=== PATIENT | female | born 1990 | race Caucasian/White ===

== ENCOUNTER 2016-03-15 17:35 | Emergency (ER) | payer MEDICARE, MEDICAID ==
[~2016-03-15] VITALS: Ht 160 cm; Wt 59.0 kg
[~2016-03-15 17:35] MED LIST: ACID REFLUX MED; AGM875T PO; ALBU8.5H2 IH; ALLERGY SHOTS; ALLERGY SHOTS IM; ALPR0.2550 PO; ALPR1TAB2 PO; ALPR1TAB7; ANTI14DR4 OT; ARIP2TAB3 PO; AZIT-21 PO; BCP; BENZ100C18 PO; BUTA1TAB55 PO; CEFD300C3 PO; CEPH500C PO; CETI1TAB2 PO; CIPR-225 PO; CIPR500T78 PO; CYAN50TA SL; CYCL10TA9 PO; DOCU100C37 PO; DOXY1TAB3 PO; DULO30CA PO; DULO60CA6 PO; ESCI10TA55; ESCT10T PO; FERR-74 PO; FLUO20CA25 PO; HYDR-3812 PO; HYDR118S10 PO; HYDR1TAB PO; HYDR1TAB71 PO; HYDR25CA5 PO; IBP600T1 PO; IBUP-1773 PO; IBUP800T26 PO; INDO25CA PO; KETO-22 PO; KETO1SPR NS; MAGN200T3 PO; MELA1TAB10 PO; METO10TA3; METR500T21 PO; NITR-65 PO; NITR100C PO; NORTEL; NORTEL PO; NYST15CR3 TOP; OMEP20CA12; OMEP20CA12 PO; OMEP20TA2 PO; ONAB200V IJ; ONDA-42 PO; ONDA8TAB13 PO; ONDAN4ODT PO; PARO40TA47; PHEN200T27 PO; PRD20T PO; PREN1TAB86 PO; PROP10TA8 PO; RT-ALBUINH IH; SULF-222 PO; SUMA1TAB PO; TIZA4TAB55 PO; TOPI50TA13; TOPI50TA37 PO; TPR100T PO; TPR25T PO; TRAM50TA2 PO; TRAZ150T42 PO; TRZ100T PO; VERA40TA2 PO; bcp
--- OUTSIDE RECORDS SUMMARY | 2016-03-15 17:40 | XMS REPORT | Continuity of Care Document ---
Author Author [facility] Organization [facility] Address Unknown Phone Unavailable Care Team Providers Care Oak Tanner Name Role Phone PCP Unavailable Source Comments Some departments are not documenting in the electronic medical record. If you do not see the information that you expected, contact Release of Information in the Health Information Management department at [phone] for further assistance in locating additional records.[facility] Active Allergies and Adverse Reactions Allergen Noted Date Severity Reactions Comments Pcn 12/30/2012 HIVES Treximet 12/30/2012 SWOLLEN TONGUE Swollen throat Current Medications Prescription Sig. Disp. Refills Start End Date Status Date DULoxetine DR (CYMBALTA) Take 60 mg by mouth Active 60 mg capsule daily. nortriptyline (PAMELOR) Take 50 mg by mouth at Active 10 mg capsule bedtime daily. Take three caps at bed time other medication 0.5 Each. 0.5 mg Estrace Active one a day /estradiol/ traZODone (DESYREL) 150 Take 150 mg by mouth at Active mg tablet bedtime daily. ondansetron (ZOFRAN) 4 mg Take 4 mg by mouth daily Active tablet as needed. Sublingual daily HYDROCODONE Take 7.5-50 mg by mouth Active BIT/ACETAMINOPHEN every 12 hours as needed. (HYDROCODONE-ACETAMINOPHE Two tabs per day, no more N PO) than 6 tabs per week ketorolac (SPRIX) 15.75 Apply to each nostril as Active mg/spray spry directed daily as needed. One spray each nostrils every 8 hrs prn ALPRAZolam (XANAX) 0.25 Take 1 mg by mouth every Active mg tablet 8 hours as needed. One-two tabs every 8 hrs if needed ONABOTULINUMTOXINA (BOTOX Inject to area(s) as Active IJ) directed. Every three months other medication 1 Dose. Allergy inj every Active week medroxyPROGESTERone Inject 150 mg to area(s) Active (DEPO-PROVERA) 150 mg/mL as directed every 90 injection days. nortriptyline (PAMELOR) Take 50 mg by mouth at Active 50 mg capsule bedtime daily. Cyanocobalamin (VITAMIN Place under tongue Active B-12) 2,500 mcg subl daily. 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 Respiratory Rate 18 03/25/2013 9:18 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 Height 1.6 m (5' 3") 03/25/2013 9:18 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 Weight 77.111 kg (170 lb) 03/25/2013 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
[2016-03-15] MEDS ORDERED: KETOROLAC 60 MG/2 ML VIAL IM ONE (17:45)
[2016-03-15] MEDS ORDERED: diphenhydrAMINE 50 MG/ML INJ (BENADRYL) IM ONE (17:45)
[2016-03-15] MEDS ORDERED: PROCHLORPERAZINE 10 MG/2ML INJ (COMPAZINE) IM ONE (17:45)
[2016-03-15] MEDS ORDERED: SULF-222 (17:53)
[2016-03-15] MEDS ORDERED: OSLT75C (17:53)
--- NOTE | 2016-03-15 17:53 | ED Headache ---
General Chief Complaint: Head/Cervical Problems Stated Complaint: MIGRAINE Nursing Triage Note: COMPLAINS OF MIGRAINE STARTING AT 0500. HAS TAKEN IBUPROFEN AND EXCEDREN WITH NO RELIEF. RECENTLY DX WITH THE FLU. Nursing Sepsis Screen: No Definite Risk Source: patient Exam Limitations: no limitations History of Present Illness Time seen by provider: 17:52 Initial Comments To ER with reports of a migraine. This is a left frontal/retro-orbital headache worsened by light. She does have associated nausea. This is characteristic of her frequent migraines. This started this morning when she awakened. She took some ibuprofen this morning without significant relief. She then tried Excedrin Migraine this afternoon around 2 p.m., again without significant relief. She does see an anesthesiologist in [place] for cervical injections. She was formerly on Topamax which she does feel helped quite a bit with her migraine frequency and intensity but ran out of this medication when her neurologist in [place] left. Timing/Duration: constant, increasing, other Location: frontal Prior Headaches/Recent Trauma: frequent headaches Modifying Factors: worse with exposure to light Associated Symptoms: No confusion, No fatigue, No facial pain, No fever/chills , No flushing, No loss of consciousness, nausea/vomitingNo nasal congestion, No nasal drainage, No numbness in legs/feet, No rash, No seizures, No sinus infection, No stiff neck, No vision changes Allergies and Home Medications Allergies Coded Allergies: sumatriptan (Unverified Allergy, Severe, ANAPHYLAXIS, 09/20/13) Penicillins (Unverified Allergy, Unknown, 09/20/13) sumatriptan succinate (Verified Adverse Reaction, Mild, 04/01/11) Home Medications Alprazolam 1 Mg Tablet #90 (Reported) Duloxetine HCl 60 Mg Capsule.dr 60 MG PO (Reported) Ibuprofen 600 Mg Tablet 600 MG PO Q6H PRN PRN PAIN (Reported) Omeprazole 20 Mg Capsule.dr #30 (Reported) Oseltamivir Phosphate 75 Mg Cap #10 (Reported) Sulfamethoxazole/Trimethoprim 1 Each Tablet #20 (Reported) Constitutional: see HPI Eyes: No Symptoms Reported Ears, Nose, Mouth, Throat: no symptoms reported Respiratory: no symptoms reported Cardiovascular: no symptoms reported Genitourinary: no symptoms reported Musculoskeletal: no symptoms reported Skin: no symptoms reported Psychiatric/Neurological: See HPI Headache Past Etyashz-Pjoaom-Mfiftx Hx Patient Social History Type Used: Cigarettes Recent Foreign Travel: No Contact w/Someone Who Travel: No Recent Infectious Disease Expo: No Recent Hopitalizations: No Immunizations Up To Date Tetanus Booster (TDap): Unknown PED Vaccines UTD: Yes Date of Influenza Vaccine: Jan 08, 2013 Seasonal Allergies Seasonal Allergies: No Surgeries HX Surgeries: Yes (SINUS, EXPL LAP, EAR TUBES, perineal tear repair) Surgeries: Abdominal, Appendectomy, Ear Surgery, Eye Surgery Respiratory Hx Respiratory Disorders: No Cardiovascular Hx Cardiac Disorders: No Neurological Hx Neurological Disorders: Yes Neurological Disorders: Headaches /Migraines 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 System : No (ON DEPO) Hx 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 Disorders: No Genitourinary Hx Genitourinary Disorders: No Gastrointestinal Hx Gastrointestinal Disorders: Yes Gastrointestinal Disorders: Gastroesophageal Reflux Musculoskeletal Hx Musculoskeletal Disorders: No Endocrine Hx Endocrine Disorders: No HEENT HX ENT Disorders: No Cancer Hx Cancer: No Psychosocial Hx Psychiatric Problems: Yes Behavioral Health Disorders: Sleep Difficulties, Anxiety, PTSD, Depression Integumentary HX Skin/Integumentary Disorder: No Blood Transfusions Hx Blood Disorders: No Adverse Reaction to a Blood Tr: No Family Medical History Significant Family History: No Pertinent Family Hx Family Medial History: FH: bipolar disorder 19 FATHER 19 MOTHER Physical Exam Vital Signs Vital Sign - Last 12Hours 03/15/16 17:49 Temp 97.8 Pulse 102 Resp 18 B/P 137/101 Pulse Ox 98 Capillary Refill : Less Than 3 Seconds General Appearance: WD/WN no apparent distress HEENT: PERRL/EOMI normal ENT inspection TMs normal Neck: non-tender full range of motion Cardiovascular: no murmur tachycardia (102) Respiratory: lungs clear normal breath sounds no accessory muscle use Extremities: normal range of motion non-tender Psychiatric: alert oriented x 3 Crainal Nerves: normal hearing normal speech PERRL Coordination/Gait: normal gait Skin: normal color warm/dry Progress/Results/Core Measures Results/Orders My Orders Orders-JUAN MIGUEL JIMENEZ APRN Diphenhydramine Injection (Benadryl Inje (03/15/16 17:45) Prochlorperazine Injection (Compazine In (03/15/16 17:45) Ketorolac Injection (Toradol Injection) (03/15/16 17:45) Medications Given in ED Current Medications Medications Dose Ordered Sig/Janine Route Start Time Stop Time Status Last Admin Dose Admin Diphenhydramine HCl 25 mg ONCE ONCE IM 03/15/16 17:45 03/15/16 17:46 DC 03/15/16 17:56 25 MG Ketorolac Tromethamine 60 mg ONCE ONCE IM 03/15/16 17:45 03/15/16 17:46 DC 03/15/16 17:56 60 MG Prochlorperazine Edisylate 10 mg ONCE ONCE IM 03/15/16 17:45 03/15/16 17:46 DC 03/15/16 17:56 10 MG Vital Signs/I&O Vital Sign - Last 12Hours 03/15/16 17:49 Temp 97.8 Pulse 102 Resp 18 B/P 137/101 Pulse Ox 98 Blood Pressure Mean: 113 Departure Impression Impression: Primary Impression: Headache Qualified Code: R51 - Headache Disposition: 01 HOME, SELF-CARE Condition: Improved Departure-Patient Inst. Decision time for Depature: 18:01 Referrals: NO,LOCAL PHYSICIAN (PCP/Family) Primary Care Physician Patient Instructions: Headache, Adult (DC) Add. Discharge Instructions: All discharge instructions reviewed with patient and/or family. Voiced understanding. JUAN MIGUEL JIMENEZ APRN Mar 15, 2016 17:53
[2016-03-15 18:31] VITALS: BP 116/88
== END 2016-03-15 18:31 | disposition home or self-care (01) ==
LOC: EDUNIT# 17:35 → ER 17:36
DX: R51 Headache (principal)
CPT/HCPCS: 96372; 99282

== ENCOUNTER 2016-03-17 11:24 | Emergency (ER) | payer MEDICARE, MEDICAID ==
[~2016-03-17] VITALS: Ht 160 cm; Wt 59.0 kg
[~2016-03-17 11:24] MED LIST changes: +OSLT75C; +SULF-222
--- OUTSIDE RECORDS SUMMARY | 2016-03-17 11:29 | XMS REPORT | Continuity of Care Document ---
Author Author [facility] Organization [facility] Address Unknown Phone Unavailable Care Team Providers Care Communications Assistant Name Role Phone PCP Unavailable Source Comments Some departments are not documenting in the electronic medical record. If you do not see the information that you expected, contact Release of Information in the Health Information Management department at [phone] for further assistance in locating additional records.[facility] Active Allergies and Adverse Reactions [...] Taken Blood Pressure 130/86 03/25/2013 9:18 AM RESTROOMS OR LOUNGES MAID Pulse 106 03/25/2013 9:18 AM RESTR[employer]S [employer] Temperature 36.8 C (98.3 F) 03/25/2013 9:18 AM RESTR[employer]S [employer] MA[employer] Respiratory Rate 18 03/25/2013 9:18 AM RESTR[employer]S [employer] MA[employer] Height 1.6 m (5' 3") 03/25/2013 9:18 AM RESTR[employer]S [employer] MAID Weight 77.111 kg (170 lb) 03/25/2013 9:18 AM RESTR[employer]S [employer] Body Mass Index 30.12 03/25/2013 9:18 AM RESTROOMS [employer] Oxygen Saturation - - Plan of Care Date Type Specialty Providers Description 05/02/2016 Appointment Urology Guillermo Mae MD [address] [facility] [address] [place] [address] [phone] (Fax) Health Maintenance Due Date Last Done Comments Physical (Comprehensive) 06/19/1999 Exam Hpv Vaccines (#1) 06/19/2003 Pertussis Vaccine 06/19/2003 Tetanus Vaccine 2009 Cervical Cancer Screening 2013 Influenza Vaccine 11/09/2015 Results from Last 3 Months Not on file
[2016-03-17] MEDS ORDERED: diphenhydrAMINE 50 MG/ML INJ (BENADRYL) IVP ONE (12:00)
[2016-03-17] MEDS ORDERED: PROMETHAZINE INJ 25 MG/ML (PHENERGAN) AMP IVP ONE (12:00)
[2016-03-17] MEDS ORDERED: KETOROLAC 30 MG/ML VIAL IVP ONE (12:00)
--- NOTE | 2016-03-17 12:03 | ED Headache ---
General Chief Complaint: Head/Cervical Problems Stated Complaint: MIGRAINE Nursing Triage Note: Here for repeat migraine. Here 03/15/16 for new migraine. Pt's PCP referred to anesthesia for injections and rec'd one 03/05/16 and to return 03/19/16. Pt states will not be going to appt 03/19/16 as never improved. Nursing Sepsis Screen: No Definite Risk Source: patient, family Exam Limitations: no limitations History of Present Illness Time seen by provider: 12:01 Initial Comments 25-year-old white female presents with complaint of recurrent migraine headache. The patient was seen here 2 days ago and treated with ketorolac, diphenhydramine, and Phenergan with good relief of her headache. Patient denies associated fever or chill. She has had no lateralizing or localizing neurologic complaints. The patient is involved in follow-up for her headaches. Allergies and Home Medications Allergies Coded Allergies: sumatriptan (Unverified Allergy, Severe, ANAPHYLAXIS, 09/20/13) Penicillins (Unverified Allergy, Unknown, 09/20/13) sumatriptan succinate (Verified Adverse Reaction, Mild, 04/01/11) Home Medications Alprazolam 1 Mg Tablet #90 (Reported) Duloxetine HCl 60 Mg Capsule.dr 60 MG PO (Reported) Ibuprofen 600 Mg Tablet 600 MG PO Q6H PRN PRN PAIN (Reported) Omeprazole 20 Mg Capsule.dr #30 (Reported) Oseltamivir Phosphate 75 Mg Cap #10 (Reported) Sulfamethoxazole/Trimethoprim 1 Each Tablet #20 (Reported) Constitutional: No chills, No fever Eyes: Denies Blindness, Denies Blurred Vision, Photophobia Ears, Nose, Mouth, Throat: denies ear pain, denies ear discharge Respiratory: No cough Cardiovascular: No chest pain Gastrointestinal: No abdominal pain, No diarrhea, nausea Genitourinary: No dysuria, No frequency Musculoskeletal: No back pain Skin: No rash Psychiatric/Neurological: Headache Past Bpvhwnu-Yadnyv-Wvaufx Hx Patient Social History Alcohol Use: Denies Use Recreational Drug Use: No Smoking Status: Current Everyday Smoker Type Used: Cigarettes Recent Foreign Travel: No Contact w/Someone Who Travel: No Recent Infectious Disease Expo: No Recent Hopitalizations: No Physical Abuse Screen: No Sexual Abuse: No Immunizations Up To Date Tetanus Booster (TDap): Unknown PED Vaccines UTD: Yes Date of Influenza Vaccine: Jan 08, 2013 Seasonal Allergies Seasonal Allergies: No Surgeries HX Surgeries: Yes (SINUS, EXPL LAP, EAR TUBES, perineal tear repair) Surgeries: Abdominal, Appendectomy, Ear Surgery, Eye Surgery Respiratory Hx Respiratory Disorders: No Cardiovascular Hx Cardiac Disorders: No Neurological Hx Neurological Disorders: Yes Neurological Disorders: Headaches /Migraines 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 System Hx 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 Disorders: No Genitourinary Hx Genitourinary Disorders: No Gastrointestinal Hx Gastrointestinal Disorders: Yes Gastrointestinal Disorders: Gastroesophageal Reflux Musculoskeletal Hx Musculoskeletal Disorders: No Endocrine Hx Endocrine Disorders: No HEENT HX ENT Disorders: No Cancer Hx Cancer: No Psychosocial Hx Psychiatric Problems: Yes Behavioral Health Disorders: Sleep Difficulties, Anxiety, PTSD, Depression Integumentary HX Skin/Integumentary Disorder: No Blood Transfusions Hx Blood Disorders: No Adverse Reaction to a Blood Tr: No Reviewed Nursing Assessment Reviewed/Agree w Nursing PMH: Yes Family Medical History Significant Family History: No Pertinent Family Hx Family Medial History: FH: bipolar disorder 19 FATHER 19 MOTHER Physical Exam Vital Signs Vital Sign - Last 12Hours 03/17/16 11:33 Temp 96.2 Pulse 89 Resp 16 B/P 121/72 Pulse Ox 99 O2 Delivery Room Air Capillary Refill : Less Than 3 Seconds General Appearance: WD/WN mild distress HEENT: normal ENT inspection Neck: normal inspection Cardiovascular: normal peripheral pulses regular rate, rhythm Respiratory: chest non-tender lungs clear normal breath sounds Gastrointestinal: normal bowel sounds non tender soft Back: normal inspection Extremities: normal range of motion Psychiatric: alert oriented x 3 Crainal Nerves: normal hearing normal speech PERRL Motor/Sensory: no motor deficit no sensory deficit Reflexes: 3+ Knee (R), 3+ Knee (L) Skin: normal color warm/dry Progress/Results/Core Measures Results/Orders My Orders Orders-FADI DAVE MD Diphenhydramine Injection (Benadryl Inje (03/17/16 12:00) Ketorolac Injection (Toradol Injection) (03/17/16 12:00) Promethazine Injection (Phenergan Injec (03/17/16 12:00) Ns Iv 1000 Ml (Sodium Chloride 0.9%) (03/17/16 12:15) Medications Given in ED Current Medications Medications Dose Ordered Sig/Janine Route Start Time Stop Time Status Last Admin Dose Admin Diphenhydramine HCl 25 mg ONCE ONCE IVP 03/17/16 12:00 03/17/16 12:02 DC 03/17/16 12:35 25 MG Ketorolac Tromethamine 30 mg ONCE ONCE IVP 03/17/16 12:00 03/17/16 12:02 DC 03/17/16 12:35 30 MG Promethazine HCl 25 mg ONCE ONCE IVP 03/17/16 12:00 03/17/16 12:02 DC 03/17/16 12:35 25 MG Vital Signs/I&O Vital Sign - Last 12Hours 03/17/16 03/17/16 11:33 12:35 Temp 96.2 96.2 Pulse 89 Resp 16 B/P 121/72 Pulse Ox 99 O2 Delivery Room Air Blood Pressure Mean: 88 Progress Note : Time: 12:54 Progress Note After the patient received 25 mg of Benadryl, 25 mg Phenergan, and 30 mg Toradol IV her headache abated. 1255 p.m. At the time of discharge the patient was sleeping quietly in her bed without further headache. Departure Impression Impression: Primary Impression: Migraine Qualified Code: G43.909 - Migraine, unspecified, not intractable, without status migrainosus Disposition: 01 HOME, SELF-CARE Condition: Improved Departure-Patient Inst. Decision time for Depature: 12:56 Referrals: [facility],LOCAL PHYSICIAN (PCP) Primary Care Physician Patient Instructions: Migraine Headache (DC) Add. Discharge Instructions: Rest at home today. Follow up at [facility]. Return if any problems. All discharge instructions reviewed with patient and/or family. Voiced understanding. FADI DAVE MD Mar 17, 2016 12:03
[2016-03-17] MEDS ORDERED: NS IV 1000 ML 1,000 ML IV SCH (12:15)
[2016-03-17 13:12] VITALS: BP 118/70
== END 2016-03-17 13:12 | disposition home or self-care (01) ==
LOC: EDUNIT# 11:24 → ER 11:25
DX: G43.909 Migraine, unspecified, not intractable, without status migrainosus (principal); F17.210 Nicotine dependence, cigarettes, uncomplicated
CPT/HCPCS: 96374; 96375; 99282

== ENCOUNTER 2016-03-26 17:50 | Emergency (ER) | payer MEDICARE, MEDICAID ==
[~2016-03-26] VITALS: Ht 160 cm; Wt 59.0 kg
--- OUTSIDE RECORDS SUMMARY | 2016-03-26 17:55 | XMS REPORT | Continuity of Care Document ---
Author Author [facility] Organization [facility] Address Unknown Phone Unavailable Care Team Providers Care Pharmacy Sales Representative Name Role Phone PCP Unavailable Source Comments Some departments are not documenting in the electronic medical record. 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 Height 1.6 m (5' 3") 03/25/2013 9:18 AM WATER CONTROL STATION ENGINEER Weight 77.111 kg (170 lb) 03/25/2013 9:18 AM WATER 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
--- NOTE | 2016-03-26 19:44 | ED Headache ---
General Chief Complaint: Head/Cervical Problems Stated Complaint: MIGRAINE Nursing Triage Note: PT C/O MIGRAINE SINCE LAST NOC. SHE REPORTS SHE HAS BEEN ALTERNATING TYLENOL AND MOTRIN WITH NO RELIEF. Nursing Sepsis Screen: No Definite Risk Source: patient Exam Limitations: no limitations History of Present Illness Time seen by provider: 19:44 Initial Comments 25-year-old female patient presents to the emergency department with complaints of a migraine beginning last night. Patient has multiple visits to the emergency department for similar complaints. Reports feel similar to usual migraines. Positive photophobia, sound sensitivity, and nausea. She has been alternating Tylenol and Motrin without improvement in symptoms. Timing/Duration: 24 hours, waxing and waning Severity/Quality: throbbing Location: parietal Prior Headaches/Recent Trauma: frequent headaches Modifying Factors: worse with exposure to light, worse with other (exposure to sound) Allergies and Home Medications Allergies Coded Allergies: sumatriptan (Unverified Allergy, Severe, ANAPHYLAXIS, 09/20/13) Penicillins (Unverified Allergy, Unknown, 09/20/13) sumatriptan succinate (Verified Adverse Reaction, Mild, 04/01/11) Home Medications Alprazolam 1 Mg Tablet #90 (Reported) Duloxetine HCl 60 Mg Capsule.dr 60 MG PO (Reported) Ibuprofen 600 Mg Tablet 600 MG PO Q6H PRN PRN PAIN (Reported) Omeprazole 20 Mg Capsule.dr #30 (Reported) Prednisone 20 Mg Tab #4 20 MG PO DAILY Prescribed by: CHRISTOPHE LEAHY on 03/29/16 0129 Constitutional: No chills, No dizziness, No fever, No malaise Eyes: Denies Blurred Vision, Denies Inflammation, Denies Pain, PhotophobiaDenies Vision Changes Ears, Nose, Mouth, Throat: no symptoms reported Respiratory: no symptoms reported Cardiovascular: no symptoms reported Gastrointestinal: No abdominal pain, No constipation, No diarrhea, loss of appetite nauseaNo vomiting Genitourinary: no symptoms reported Musculoskeletal: no symptoms reported Skin: no symptoms reported Psychiatric/Neurological: HeadacheDenies Numbness, Denies Paresthesia, Denies Seizure, Denies Tingling, Denies Weakness All Other Systems Reviewed Negative Unless Noted: Yes (Negative excepted noted.) Past Qgjyztg-Gvwman-Bomxei Hx Patient Social History Alcohol Use: Denies Use Recreational Drug Use: No Smoking Status: Current Everyday Smoker Type Used: Cigarettes Recent Foreign Travel: No Contact w/Someone Who Travel: No Recent Infectious Disease Expo: No Recent Hopitalizations: No Physical Abuse Screen: No Sexual Abuse: No Immunizations Up To Date Tetanus Booster (TDap): Unknown PED Vaccines UTD: Yes Date of Influenza Vaccine: Jan 08, 2013 Seasonal Allergies Seasonal Allergies: No Surgeries HX Surgeries: Yes (SINUS, EXPL LAP, EAR TUBES, perineal tear repair) Surgeries: Abdominal, Appendectomy, Ear Surgery, Eye Surgery Respiratory Hx Respiratory Disorders: No Cardiovascular Hx Cardiac Disorders: No Neurological Hx Neurological Disorders: Yes Neurological Disorders: Headaches /Migraines 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 System Hx 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 Disorders: No Genitourinary Hx Genitourinary Disorders: No Gastrointestinal Hx Gastrointestinal Disorders: Yes Gastrointestinal Disorders: Gastroesophageal Reflux Musculoskeletal Hx Musculoskeletal Disorders: No Endocrine Hx Endocrine Disorders: No HEENT HX ENT Disorders: No Cancer Hx Cancer: No Psychosocial Hx Psychiatric Problems: Yes Behavioral Health Disorders: Sleep Difficulties, Anxiety, PTSD, Depression Integumentary HX Skin/Integumentary Disorder: No Blood Transfusions Hx Blood Disorders: No Adverse Reaction to a Blood Tr: No Reviewed Nursing Assessment Reviewed/Agree w Nursing PMH: Yes Family Medical History Significant Family History: No Pertinent Family Hx Family Medial History: FH: bipolar disorder 19 FATHER 19 MOTHER Physical Exam Vital Signs Capillary Refill : Less Than 3 Seconds General Appearance: WD/WN no apparent distress HEENT: PERRL/EOMI normal ENT inspection TMs normal pharynx normal photophobia Neck: non-tender full range of motion supple normal inspection Cardiovascular: regular rate, rhythm no murmur Respiratory: lungs clear normal breath sounds no respiratory distress Gastrointestinal: normal bowel sounds non tender softNo distended Back: normal inspection Extremities: normal inspection normal capillary refill Psychiatric: alert oriented x 3 Crainal Nerves: normal hearing normal speech PERRL Coordination/Gait: normal finger to nose normal gait negative Romberg's sign Motor/Sensory: no motor deficit no sensory deficit no pronator drift Skin: normal color warm/dry Progress/Results/Core Measures Results/Orders My Orders Orders-JENNIFER MOONEY Saline Lock/Iv-Start (03/26/16 20:00) Ondansetron Injection (Zofran Injectio (03/26/16 20:00) Ketorolac Injection (Toradol Injection) (03/26/16 20:00) Orphenadrine Injection (Norflex Injectio (03/26/16 20:00) Ns Iv 1000 Ml (Sodium Chloride 0.9%) (03/26/16 20:00) Diphenhydramine Injection (Benadryl Inje (03/26/16 20:00) Iv Push Bureau Director Ed (03/26/16 ) Medications Given in ED Vital Signs/I&O Blood Pressure Mean: 111 Departure Communication Progress Notes Patient reports improvement in migraine with medications given in the emergency department. Patient is alert and oriented 3, no acute distress. Proceed with discharge to home. Impression Impression: Primary Impression: Migraine Qualified Code: G43.909 - Migraine, unspecified, not intractable, without status migrainosus Disposition: HOME, SELF-CARE Condition: Improved Departure-Patient Inst. Decision time for Depature: 20:20 Referrals: NO,LOCAL PHYSICIAN (PCP/Family) Primary Care Physician Patient Instructions: Migraine Headache (DC) Add. Discharge Instructions: All discharge instructions reviewed with patient and/or family. Voiced understanding. Continue usual home medications. Drink plenty of fluids. Tylenol extra strength alcd-igl-[id number] as directed for pain or headache. Ibuprofen 800 mg by mouth every 8 hours as needed for pain or headache. Avoid bright lights and loud noises. Follow-up with your family practitioner and neurologist as previously scheduled. Return to the emergency department for worsened headache, dizziness, changes in vision, decreased urination, or any other concerns. JENNIFER MOONEY Mar 26, 2016 19:44 Departure-Patient Inst. Decision time for Depature: 20:20 Referrals: NO,LOCAL PHYSICIAN (PCP/Family) Primary Care Physician Patient Instructions: Migraine Headache (DC) Add. Discharge Instructions: All discharge instructions reviewed with patient and/or family. Voiced understanding. Continue usual home medications. Drink plenty of fluids. Tylenol extra strength jvsn-atn-qdnfacs as directed for pain or headache. Ibuprofen 800 mg by mouth every 8 hours as needed for pain or headache. Avoid bright lights and loud noises. Follow-up with your family practitioner and neurologist as previously scheduled. Return to the emergency department for worsened headache, dizziness, changes in vision, decreased urination, or any other concerns. JENNIFER MOONEY Mar 26, 2016 19:44
[2016-03-26] MEDS ORDERED: diphenhydrAMINE 50 MG/ML INJ (BENADRYL) IVP ONE (20:00)
[2016-03-26] MEDS ORDERED: NS IV 1000 ML 1,000 ML IV ONE (20:00)
[2016-03-26] MEDS ORDERED: KETOROLAC 30 MG/ML VIAL IVP STA (20:00)
[2016-03-26] MEDS ORDERED: ONDANSETRON 4 MG/2 ML (SDV) Z0FRAN IVP ONE (20:00)
[2016-03-26] MEDS ORDERED: ORPHENADRINE 60 MG/2 ML (NORFLEX) AMP IV STA (20:00)
[2016-03-26 21:11] VITALS: BP 137/98
== END 2016-03-26 21:11 | disposition home or self-care (01) ==
LOC: EDUNIT# 17:50 → ER 17:51
DX: G43.909 Migraine, unspecified, not intractable, without status migrainosus (principal); F17.210 Nicotine dependence, cigarettes, uncomplicated
CPT/HCPCS: 96361; 96374; 96375

== ENCOUNTER 2016-03-29 00:11 | Emergency (ER) | payer MEDICARE, MEDICAID ==
[~2016-03-29] VITALS: Ht 162.6 cm; Wt 63.5 kg
--- OUTSIDE RECORDS SUMMARY | 2016-03-29 00:18 | XMS REPORT | Continuity of Care Document ---
Author Author [facility] Organization [facility] Address Unknown Phone Unavailable Care Team Providers Care Roustabout Hand Name Role Phone PCP Unavailable Source Comments Some departments are not documenting in the electronic medical record. If you do not see the information that you expected, contact Release of Information in the Health Information Management department at [phone] for further assistance in locating additional records.[facility] Active Allergies and Adverse Reactions [...] Taken Blood Pressure 130/86 03/25/2013 9:18 AM HAND CELL TUBER Pulse 106 03/25/2013 9:18 AM HAND CELL TUBER Temperature 36.8 C (98.3 F) 03/25/2013 9:18 AM HAND CELL TUBER Respiratory Rate 18 03/25/2013 9:18 AM HAND CELL TUBER Height 1.6 m (5' 3") 03/25/2013 9:18 AM HAND CELL TUBER Weight 77.111 kg (170 lb) 03/25/2013 9:18 AM HAND CELL TUBER Body Mass Index 30.12 03/25/2013 9:18 AM HAND CELL TUBER Oxygen Saturation - - Plan of Care Date Type Specialty Providers Description 05/02/2016 Appointment Urology Guillermo Mae MD [address] [facility] [address] [place] [address] [phone] (Fax) Health Maintenance Due Date Last Done Comments Physical (Comprehensive) 06/19/1999 Exam Hpv Vaccines (#1) 06/19/2003 Pertussis Vaccine 06/19/2003 Tetanus Vaccine 2009 Cervical Cancer Screening 2013 Influenza Vaccine 11/09/2015 Results from Last 3 Months Not on file
[2016-03-29] MEDS ORDERED: KETOROLAC 30 MG/ML VIAL IVP ONE (01:00)
--- NOTE | 2016-03-29 01:28 | ED Chest Pain ---
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 Onset was at rest while feeding her baby. She took Tums without relief. She has not taken any Tylenol or ibuprofen. She was diagnosed with influenza 1 to 2 weeks ago. She was prescribed Tamiflu and Bactrim which she completed. She has had cough since that time but fever did resolve. Allergies and Home Medications Allergies Coded Allergies: sumatriptan (Unverified Allergy, Severe, ANAPHYLAXIS, 09/20/13) Penicillins (Unverified Allergy, Unknown, 09/20/13) sumatriptan succinate (Verified Adverse Reaction, Mild, 04/01/11) Home Medications Alprazolam 1 Mg Tablet #90 (Reported) Duloxetine HCl 60 Mg Capsule.dr 60 MG PO (Reported) Ibuprofen 600 Mg Tablet 600 MG PO Q6H PRN PRN PAIN (Reported) Omeprazole 20 Mg Capsule.dr #30 (Reported) Prednisone 20 Mg Tab #4 20 MG PO DAILY Prescribed by: CHRISTOPHE LEAHY on 03/29/16 0129 Review of Systems Constitutional: no symptoms reported EENTM: No Symptoms Reported Respiratory: See HPI Cardiovascular: No Symptoms Reported Gastrointestinal: No Symptoms Reported Genitourinary: No Symptoms Reported Musculoskeletal: see HPI Skin: no symptoms reported Psychiatric/Neurological: No Symptoms Reported Endocrine: No Symptoms Reported Past Vhtkhae-Mzsrjv-Ilslev Hx Patient Social History Alcohol Use: Denies Use Recreational Drug Use: No Smoking Status: Current Everyday Smoker Type Used: Cigarettes Recent Foreign Travel: No Contact w/Someone Who Travel: No Recent Infectious Disease Expo: No Recent Hopitalizations: No Physical Abuse Screen: No Sexual Abuse: No Immunizations Up To Date Tetanus Booster (TDap): Unknown PED Vaccines UTD: Yes Date of Influenza Vaccine: Jan 08, 2013 Seasonal Allergies Seasonal Allergies: No Surgeries HX Surgeries: Yes (SINUS, EXPL LAP, EAR TUBES, perineal tear repair) Surgeries: Abdominal, Appendectomy, Ear Surgery, Eye Surgery Respiratory Hx Respiratory Disorders: No Cardiovascular Hx Cardiac Disorders: No Neurological Hx Neurological Disorders: Yes Neurological Disorders: Headaches /Migraines 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 System : No Hx 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 Disorders: No Genitourinary Hx Genitourinary Disorders: No Gastrointestinal Hx Gastrointestinal Disorders: Yes Gastrointestinal Disorders: Gastroesophageal Reflux Musculoskeletal Hx Musculoskeletal Disorders: No Endocrine Hx Endocrine Disorders: No HEENT HX ENT Disorders: No Cancer Hx Cancer: No Psychosocial Hx Psychiatric Problems: Yes Behavioral Health Disorders: Sleep Difficulties, Anxiety, PTSD, Depression Integumentary HX Skin/Integumentary Disorder: No Blood Transfusions Hx Blood Disorders: No Adverse Reaction to a Blood Tr: No Family Medical History Significant Family History: No Pertinent Family Hx Family Medial History: FH: bipolar disorder 19 FATHER 19 MOTHER Physical Exam Vital Signs Vital Sign - Last 12Hours 03/29/16 00:21 Temp 96.4 Pulse 78 Resp 12 B/P 126/95 Pulse Ox 99 O2 Delivery Room Air Capillary Refill : Less Than 3 Seconds General Appearance: No Apparent Distress WD/WN HEENT: PERRL/EOMI Normal ENT Inspection Respiratory: Lungs Clear Normal Breath Sounds No Accessory Muscle Use No Respiratory Distress Other (central chest tender to palpation) Cardiovascular: Regular Rate, Rhythm No Edema No Murmur Gastrointestinal: Normal Bowel Sounds Non Tender Soft Extremity: Normal Inspection Non Tender No Calf Tenderness No Pedal Edema Other (negative Marleen) 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: Alert Oriented x3 No Motor/Sensory Deficits Normal 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 Norm as Tested Skin: Normal Color Warm/Dry Progress/Results/Core Measures Results/Orders My Orders Orders-CHRISTOPHE KENT MD Chest Pa/Lat (2 View) (03/29/16 00:54) Ketorolac Injection (Toradol Injection) (03/29/16 01:00) Medications Given in ED Current Medications Medications Dose Ordered Sig/Janine Route Start Time Stop Time Status Last Admin Dose Admin Ketorolac Tromethamine 30 mg ONCE ONCE IVP 03/29/16 01:00 03/29/16 01:01 DC 03/29/16 00:57 30 MG Vital Signs/I&O Vital Sign - Last 12Hours 03/29/16 03/29/16 03/29/16 00:21 00:21 01:44 Temp 96.4 Pulse 78 76 Resp 12 20 B/P 126/95 Pulse Ox 99 99 O2 Delivery Room Air Blood Pressure Mean: 105 Progress Note : Progress Note Pain improved significantly with Toradol. Chest x-ray was normal. There was no tachycardia, hypoxia, or lower extremity symptoms. Patient was ultimately discharged home in improved condition. ECG Initial ECG Impression Date: Mar 29, 2016 Initial ECG Impression Time: 00:20 Initial ECG Rate: 86 Initial ECG Rhythm: Normal Sinus Initial ECG Intervals: Normal Initial ECG Impression: Normal Comment Normal sinus rhythm with no ST elevation or depression. No abnormal intervals or axis deviation. Diagnostic Imaging Diagonstic Imaging: Xray Plain Films/CT/US/NM/MRI: chest Comments Two-view chest x-ray viewed by me. Report not yet available. No acute abnormalities were appreciated. Departure Impression Impression: Primary Impression: Pleuritic chest pain Disposition: HOME, SELF-CARE Condition: Improved Departure-Patient Inst. Decision time for Depature: 01:25 Referrals: GAUDENCIO RAJAN MD (PCP/Family) Primary Care Physician Patient Instructions: Chest Pain That Is Not Caused by the Heart (DC) Add. Discharge Instructions: Take Ibuprofen up to 600 mg every 6 hours as needed for pain. Add Tylenol ( acetaminophen) up to 1000 mg every 6 hours as needed for additional pain relief. If over the counter medications do not relieve your pain, take the prednisone as prescribed. Follow-up with your doctor if not improved by Friday. Return to the ER if symptoms worsen. All discharge instructions reviewed with patient and/or family. Voiced understanding. Scripts Prednisone 20 Mg Tab20 Mg PO DAILY #4 TAB Prov:CHRISTOPHE KENT MD 03/29/16 CHRISTOPHE KENT MD Mar 29, 2016 01:28
[2016-03-29] MEDS ORDERED: PRD20T PO (01:29)
[2016-03-29 01:44] VITALS: BP 102/72
--- NOTE | 2016-03-29 07:17 | Diagnostic Imaging Report ---
PA and lateral views of the chest Indication: Chest pain Findings: The lungs are clear. The heart size is normal. There is no effusion or pneumothorax The mediastinum and jinny appear unremarkable. Impression: Unremarkable study. Dictated by: Dictated on workstation # [id number]
== END 2016-03-29 01:44 | disposition home or self-care (01) ==
LOC: EDUNIT# 00:11 → ER 00:14
DX: R07.81 Pleurodynia (principal); F17.210 Nicotine dependence, cigarettes, uncomplicated; Z79.899 Other long term (current) drug therapy
CPT/HCPCS: 71020; 93005; 96374

== ENCOUNTER → 2016-04-03 | Outpatient (CLI) | payer MEDICARE, MEDICAID ==
[~2016-04-03] MED LIST changes: +GABA800T2; +ONDA4TAB8 PO; +TOPI100T11
--- OUTSIDE RECORDS SUMMARY | 2016-04-03 13:51 | XMS REPORT | Continuity of Care Document ---
Author Author [facility] Organization [facility] Address Unknown Phone Unavailable Care Team Providers Care Petroleum Geology Faculty Member Name Role Phone PCP Unavailable Source Comments Some departments are not documenting in the electronic medical record. If you do not see the information that you expected, contact Release of Information in the Health Information Management department at [phone] for further assistance in locating additional records.[facility] Active Allergies and Adverse Reactions Allergen [...] Taken Blood Pressure 130/86 03/25/2013 9:18 AM RAILROAD ENGINEER Pulse 106 03/25/2013 9:18 AM RAILROAD ENGINEER Temperature 36.8 C (98.3 F) 03/25/2013 9:18 AM RAILROAD ENGINEER Respiratory Rate 18 03/25/2013 9:18 AM RAILROAD ENGINEER Height 1.6 m (5' 3") 03/25/2013 9:18 AM RAILROAD ENGINEER Weight 77.111 kg (170 lb) 03/25/2013 9:18 AM RAILROAD ENGINEER Body Mass Index 30.12 03/25/2013 9:18 AM RAILROAD ENGINEER Oxygen Saturation - - Plan of Care Date Type Specialty Providers Description 05/02/2016 Appointment Urology Guillermo Mae MD [address] [facility] [address] [place] [address] [phone] (Fax) Health Maintenance Due Date Last Done Comments Physical (Comprehensive) 06/19/1999 Exam Hpv Vaccines (#1) 06/19/2003 Pertussis Vaccine 06/19/2003 Tetanus Vaccine 2009 Cervical Cancer Screening 2013 Influenza Vaccine 11/09/2015 Results from Last 3 Months Not on file
[2016-04-03 14:01] LABS: MEAN PLATELET VOLUME 9.1 FL (7.4-10.4); RED BLOOD COUNT 3.93 10^6/uL (4.35-5.85); RED CELL DISTRIBUTION WIDTH 12.7 % (10.0-14.5); WHITE BLOOD COUNT 11.4 10^3/uL (4.3-11.0)
[2016-04-03 14:23] LABS: ALANINE AMINOTRANSFERASE 13 U/L (0-55); ALBUMIN 4.2 G/DL (3.2-4.5); ANION GAP 9 MMOL/L (5-14); ASPARTATE AMINO TRANSFERASE 8 U/L (5-34); BILIRUBIN,TOTAL 0.4 MG/DL (0.1-1.0); BLOOD UREA NITROGEN 12 MG/DL (7-18); BUN/CREATININE RATIO 18; CARBON DIOXIDE 23 MMOL/L (21-32); CHLORIDE 108 MMOL/L (98-107); CREATININE SERUM 0.66 MG/DL (0.60-1.30); GFR ESTIMATED > 60; GLUCOSE 80 MG/DL (70-105); POTASSIUM 3.4 MMOL/L (3.6-5.0); SODIUM 140 MMOL/L (135-145); TOTAL PROTEIN 6.1 G/DL (6.4-8.2)
== END ==
LOC: LAB 13:46
PROVIDERS: ATTEND Psychiatry & Neurology Neurology
DX: G43.019 Migraine without aura, intractable, without status migrainosus (principal)
CPT/HCPCS: 36415; 80053; 85027; 85652

== ENCOUNTER 2016-05-07 19:01 | Emergency (ER) | payer MEDICARE, MEDICAID ==
[~2016-05-07] VITALS: Ht 162.6 cm; Wt 59.0 kg
[~2016-05-07 19:01] MED LIST changes: -GABA800T2; -ONDA4TAB8 PO; -TOPI100T11
--- OUTSIDE RECORDS SUMMARY | 2016-05-07 19:06 | XMS REPORT | Continuity of Care Document ---
Author Author [facility] Organization [facility] Address Unknown Phone Unavailable Care Team Providers Care Production Sound Mixer Name Role Phone No Pcp, Na PCP Unavailable Source Comments Some departments are not documenting in the electronic medical record. If you do not see the information that you expected, contact Release of Information in the Health Information Management department at [phone] for further assistance in locating additional records.[facility] Active Allergies and Adverse Reactions Allergen Noted Date Severity Reactions Comments Imitrex 05/02/2016 High ANAPHYLAXIS Pcn 12/30/2012 HIVES Treximet 12/30/2012 SWOLLEN TONGUE Swollen throat Current Medications Prescription Sig. Disp. Refills Start End Date Status Date DULoxetine DR (CYMBALTA) Take 60 mg by mouth Active 60 mg capsule daily. ondansetron (ZOFRAN) 4 mg Take 4 mg by mouth daily Active tablet as needed. Sublingual daily ALPRAZolam (XANAX) 0.25 Take 1 mg by mouth every Active mg tablet 8 hours as needed. One-two tabs every 8 hrs if needed medroxyPROGESTERone Inject 150 mg to area(s) Active (DEPO-PROVERA) 150 mg/mL as directed every 90 injection days. indomethacin (INDOCIN) 25 Take 25 mg by mouth three Active mg capsule times daily. Take with food. omeprazole(+) (PRILOSEC) Take 20 mg by mouth daily Active 10 mg capsule before breakfast. TOPIRAMATE (TOPAMAX PO) Take 300 mg by mouth. Active aspirin/acetaminophen/caf Take 2 Tabs by mouth Active feine(+) (EXCEDRIN every 8 hours as needed. MIGRAINE) 250/250/65 mg tab nortriptyline (PAMELOR) Take 50 mg by mouth at 05/02/19 Discontin 10 mg capsule bedtime daily. Take three 17 ued caps at bed time other medication 0.5 Each. 0.5 mg Estrace 05/06/19 Discontin one a day /estradiol/ 17 ued traZODone (DESYREL) 150 Take 150 mg by mouth at 05/02/19 Discontin mg tablet bedtime daily. 17 ued HYDROCODONE Take 7.5-50 mg by mouth 05/02/19 Discontin BIT/ACETAMINOPHEN every 12 hours as needed. 17 ued (HYDROCODONE-ACETAMINOPHE Two tabs per day, no more N PO) than 6 tabs per week ketorolac (SPRIX) 15.75 Apply to each nostril as 05/02/19 Discontin mg/spray spry directed daily as needed. 17 ued One spray each nostrils every 8 hrs prn ONABOTULINUMTOXINA (BOTOX Inject to area(s) as 05/06/19 Discontin IJ) directed. Every three 17 ued months other medication 1 Dose. Allergy inj every 05/06/19 Discontin week 17 ued nortriptyline (PAMELOR) Take 50 mg by mouth at 05/06/19 Discontin 50 mg capsule bedtime daily. 17 ued Cyanocobalamin (VITAMIN Place under tongue 05/06/19 Discontin B-12) 2,500 mcg subl daily. 17 ued Active Problems Problem Noted Date Hematuria 05/02/2016 Last Assessment & Plan: - Will evaluate further with CT Abd/Pelvis Urogram wo/w contrast - Will plan to schedule Cystoscopy in the OR - Suspect that patient has Interstitial Cystitis - UA today and bladder scan Dysuria 05/02/2016 Last Assessment & Plan: - Has had recurrent UTI, hematuria, dysuria, frequency - Ordered CT Abd/Pelvis Urogram - Will schedule for Cystoscopy - Concerned that patient has IC - Gave behavioral modifications and dietary recommendations for IC - Ordered UA and post void scan Migraine without aura, intractable 12/30/2012 Chronic daily headache 12/30/2012 Obesity 12/30/2012 Anxiety and depression 12/30/2012 Tobacco use 12/30/2012 Most Recent Encounters Date Type Specialty Providers Description 05/21/2016 [facility] Guillermo Mae MD Interstitial cystitis Encounter 05/02/2016 Office Visit Urology Guillermo Mae MD Hematuria ( Primary Dx); Dysuria 05/02/2016 Prep for Case Urology Guillermo Mae MD Social History Tobacco Use Types Packs/Day Years Used Date Current Every Day Smoker Cigarettes 0.25 4 Smokeless Tobacco: Never Used Tobacco Cessation: Ready to Quit: No Comments: Alcohol Use Drinks/Week oz/Week Comments No Last Filed Vital Signs Vital Sign Reading Time Taken Blood Pressure 104/72 05/02/2016 2:16 PM OPERATIONS EXECUTIVE Pulse 92 05/02/2016 2:16 PM OPERATIONS EXECUTIVE Temperature 36.8 C (98.3 F) 03/25/2013 9:18 AM OPERATIONS EXECUTIVE Respiratory Rate 18 03/25/2013 9:18 AM OPERATIONS EXECUTIVE Height 1.626 m (5' 4.02") 05/06/2016 11:43 AM OPERATIONS EXECUTIVE Weight 59.875 kg (132 lb) 05/06/2016 11:43 AM OPERATIONS EXECUTIVE Body Mass Index 22.65 05/06/2016 11:43 AM OPERATIONS EXECUTIVE Oxygen Saturation - - Plan of Care Date Type Specialty Providers Description 05/13/2016 Appointment Radiology Guillermo Mae MD [address] [place] [address] [phone] (Fax) 05/21/2016 Surgery Guillermo Mae MD CYSTOSCOPY, [address] [facility] [address] [place] [address] [phone] (Fax) 07/04/2016 Appointment Urology Guillermo Mae MD [address] [place] [address] [phone] (Fax) Health Maintenance Due Date Last Done Comments Physical (Comprehensive) 06/19/1999 Exam Hpv Vaccines (#1) 06/19/2003 Pertussis Vaccine 06/19/2003 Tetanus Vaccine 2009 Cervical Cancer Screening 2013 Influenza Vaccine 11/09/2015 Results from Last 3 Months POC URINE DIPSTICK MANUAL READ (05/02/2016) Component Value Range Urine Glucose POC neg Urine Bilirubin POC neg Urine Ketone POC neg Urine Specific [place] 1.025 POC Urine Blood POC neg Urine PH POC 5.0 Urine Protein POC neg Urine Urobilinogen POC neg Urine Nitrite POC neg Urine Leukocytes POC neg Color,UA yellow Turbidity,UA clear Specimen Urine
[2016-05-07] MEDS ORDERED: ONDANSETRON 4 MG (ZOFRAN) ORAL DISSOLVE TAB PO ONE (19:15)
[2016-05-07] MEDS ORDERED: KETOROLAC 60 MG/2 ML VIAL IM ONE (19:15)
[2016-05-07] MEDS ORDERED: diphenhydrAMINE 50 MG/ML INJ (BENADRYL) IM ONE (19:15)
--- NOTE | 2016-05-07 19:19 | ED Headache ---
General Chief Complaint: Head/Cervical Problems Stated Complaint: MIGRAINE Nursing Triage Note: PT TO ED 9 W/ SISTER FOR C/O DELAROSA ONSET YESTERDAY, WORSE TODAY. DENIES VOMITING BUT DOES REPORT NAUSEA, SENSITIVITY TO LIGHT AND SOUND. NO OTHER C/O VOICED Nursing Sepsis Screen: No Definite Risk Source: patient History of Present Illness Time seen by provider: 19:07 Initial Comments C/O "MIGRAINE" SINCE YESTERDAY MORNING HEADACHE IS ON LEFT SIDE OF HEAD AND IS EXACTLY THE SAME PREVIOUS HEADACHES PT STATES SHE HAS "CHRONIC MIGRAINES" AND GETS HEADACHES AT LEAST 3 TIMES A WEEK. C/O NAUSEA, NO VOMITING NO VISION CHANGES NO DIZZINESS NO PARESTHESIAS OR MOTOR DEFICITS SEES NEUROLOGIST, DR. VILLALOBOS--LAST VISIT 05/01/16. TOPAMAX DOSE INCREASED AT THAT TIME ALSO PRESCRIBED INDOMETHACIN DAILY FOR HEADACHE. PT HAS ONLY TAKEN EXCEDRIN MIGRAINE TODAY FOR HEADACHE PT WITH MULTIPLE ER VISITS HERE --NEARLY ALL FOR PAIN COMPLAINTS THIS IS 5TH VISIT HERE IN 2017 PCP: FT. YVES LARSON NEUROLOGIST: DR. VILLALOBOS Allergies and Home Medications Allergies Coded Allergies: sumatriptan (Unverified Allergy, Severe, ANAPHYLAXIS, 09/20/13) Penicillins (Unverified Allergy, Unknown, 09/20/13) sumatriptan succinate (Verified Adverse Reaction, Mild, 04/01/11) Home Medications Alprazolam 1 Mg Tablet #90 (Reported) Duloxetine HCl 60 Mg Capsule.dr 60 MG PO (Reported) Ibuprofen 600 Mg Tablet 600 MG PO Q6H PRN PRN PAIN (Reported) Omeprazole 20 Mg Capsule. #30 (Reported) Ondansetron 4 Mg Tab.rapdis #10 4 MG PO Q4H Prescribed by: YE CARBALLO on 05/07/161922 Prednisone 20 Mg Tab #4 20 MG PO DAILY Prescribed by: CHRISTOPHE LEAHY on 03/29/16 0129 Constitutional: no symptoms reported Eyes: No Symptoms Reported Ears, Nose, Mouth, Throat: no symptoms reported Respiratory: no symptoms reported Cardiovascular: no symptoms reported Gastrointestinal: see HPI nauseaNo vomiting Genitourinary: no symptoms reported : No (LMP UNKNOWN--ON DEPO-PROVERA--NEXT SHOT DUE 06/04/16. ) Musculoskeletal: no symptoms reported Skin: no symptoms reported Psychiatric/Neurological: See HPI HeadacheDenies Numbness, Denies Paresthesia , Denies Seizure, Denies Tingling, Denies Tremors, Denies Weakness Past Zehxuud-Qcuysh-Idvpof Hx Patient Social History Alcohol Use: Denies Use Recreational Drug Use: No Smoking Status: Current Everyday Smoker Type Used: Cigarettes Recent Foreign Travel: No Contact w/Someone Who Travel: No Recent Infectious Disease Expo: No Recent Hopitalizations: No Immunizations Up To Date Tetanus Booster (TDap): Unknown PED Vaccines UTD: Yes Date of Influenza Vaccine: Jan 08, 2013 Seasonal Allergies Seasonal Allergies: No Surgeries HX Surgeries: Yes (SINUS, EXPL LAP, EAR TUBES, perineal tear repair) Surgeries: Abdominal, Appendectomy, Ear Surgery, Eye Surgery Respiratory Hx Respiratory Disorders: No Cardiovascular Hx Cardiac Disorders: No Neurological Hx Neurological Disorders: Yes Neurological Disorders: Headaches /Migraines 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 System Hx 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 Disorders: No Genitourinary Hx Genitourinary Disorders: No Gastrointestinal Hx Gastrointestinal Disorders: Yes Gastrointestinal Disorders: Gastroesophageal Reflux Musculoskeletal Hx Musculoskeletal Disorders: No Endocrine Hx Endocrine Disorders: No HEENT HX ENT Disorders: No Cancer Hx Cancer: No Psychosocial Hx Psychiatric Problems: Yes Behavioral Health Disorders: Sleep Difficulties, Anxiety, PTSD, Depression Integumentary HX Skin/Integumentary Disorder: No Blood Transfusions Hx Blood Disorders: No Adverse Reaction to a Blood Tr: No Family Medical History Significant Family History: No Pertinent Family Hx Family Medial History: FH: bipolar disorder 19 FATHER 19 MOTHER Physical Exam Vital Signs Vital Sign - Last 12Hours 05/07/16 19:03 Temp 97.3 Pulse 81 Resp 18 B/P 120/92 Pulse Ox 99 O2 Delivery Room Air Capillary Refill : Less Than 3 Seconds General Appearance: WD/WN no apparent distress other (DRAMATIC) HEENT: PERRL/EOMI normal ENT inspection Neck: normal inspection Cardiovascular: regular rate, rhythm no murmur Respiratory: normal breath sounds Gastrointestinal: non tender soft Extremities: normal inspection Psychiatric: alert oriented x 3 Crainal Nerves: normal hearing normal speech PERRL Coordination/Gait: normal gait Motor/Sensory: no motor deficit no sensory deficit no pronator drift Skin: normal color warm/dry Progress/Results/Core Measures Results/Orders My Orders Orders-YE CARBALLO DO Ketorolac Injection (Toradol Injection) (05/07/16 19:15) Diphenhydramine Injection (Benadryl Inje (05/07/16 19:15) Ondansetron Oral Dissolve Tab (Zofran (05/07/16 19:15) Medications Given in ED Current Medications Medications Dose Ordered Sig/Janine Route Start Time Stop Time Status Last Admin Dose Admin Diphenhydramine HCl 50 mg ONCE ONCE IM 05/07/16 19:15 05/07/16 19:16 DC 05/07/16 19:52 50 MG Ketorolac Tromethamine 60 mg ONCE ONCE IM 05/07/16 19:15 05/07/16 19:16 DC 05/07/16 19:53 60 MG Ondansetron HCl 4 mg ONCE ONCE PO 05/07/16 19:15 05/07/16 19:16 DC 05/07/16 19:53 4 MG Vital Signs/I&O Vital Sign - Last 12Hours 05/07/16 19:03 Temp 97.3 Pulse 81 Resp 18 B/P 120/92 Pulse Ox 99 O2 Delivery Room Air Blood Pressure Mean: 101 Progress Note : Progress Note HEADACHE MUCH IMPROVED AT DISMISSAL Departure Impression Impression: Primary Impression: Chronic headaches Disposition: 01 HOME, SELF-CARE Condition: Stable Departure-Patient Inst. Referrals: GAUDENCIO RAJAN MD (PCP/Family) Primary Care Physician Patient Instructions: Headache, Adult (DC) Add. Discharge Instructions: LOTS OF CLEAR LIQUIDS TAKE YOUR REGULAR MEDICATIONS PRESCRIBED FOLLOW UP WITH YOUR DR TOMORROW IF NO BETTER All discharge instructions reviewed with patient and/or family. Voiced understanding. Scripts Ondansetron (Zofran Odt)4 Mg Tab.rapdis4 Mg PO Q4H Nausea/Vomiting #10 TAB Prov:YE CARBALLO DO 05/07/16 YE CARBALLO DO May 07, 2016 19:19
[2016-05-07] MEDS ORDERED: ONDA4TAB8 PO (19:23)
[2016-05-07 20:29] VITALS: BP 121/72
== END 2016-05-07 20:29 | disposition home or self-care (01) ==
LOC: EDUNIT# 19:01 → ER 19:02
DX: R51 Headache (principal); G89.29 Other chronic pain; F17.210 Nicotine dependence, cigarettes, uncomplicated
CPT/HCPCS: 96372; 99282

== ENCOUNTER 2016-05-27 18:52 | Emergency (ER) | payer MEDICARE, MEDICAID ==
[~2016-05-27] VITALS: Ht 160 cm; Wt 63.5 kg
[~2016-05-27 18:52] MED LIST changes: +ONDA4TAB8 PO
--- OUTSIDE RECORDS SUMMARY | 2016-05-27 18:58 | XMS REPORT | Continuity of Care Document ---
Author Author [facility] Organization [facility] Address Unknown Phone Unavailable Care Team Providers Care Residential Team Leader Name Role Phone Kamille, Bharat PCP [phone] Source Comments Some departments are not documenting in the electronic medical record. If you do not see the information that you expected, contact Release of Information in the Health Information Management department at [phone] for further assistance in locating additional records.[facility] Active Allergies and Adverse Reactions Allergen Noted [...] hours as needed. MIGRAINE) 250/250/65 mg tab oxyCODONE (ROXICODONE, Take 1 Tab by mouth every 20 Tab 0 05/22/19 Active OXY-IR) 5 mg tablet 4 hours as needed for 17 Pain hyoscyamine (ANASPAZ; Dissolve 1 Tab by mouth 20 Tab 1 05/22/19 Active NULEV; SYMAX FASTABS; every 4 hours as needed 17 HYOMAX-FT; ED-SPAZ; for Cramps. OSCIMIN) 0.125 mg rapid dissolve tablet nortriptyline (PAMELOR) Take 50 mg by mouth [...] B-12) 2,500 mcg subl daily. 17 ued oxyCODONE (ROXICODONE, Take 1 Tab by mouth every 20 Tab 0 05/22/19 05/22/19 Discontin OXY-IR) 5 mg tablet 4 hours as needed for 17 17 ued Pain sulfamethoxazole-trimetho Take 1 Tab by mouth twice 6 Tab 0 05/22/19 05/22/19 Discontin prim (BACTRIM DS) 800-160 daily for 3 days. 17 17 ued mg tablet hyoscyamine (ANASPAZ; Dissolve 1 Tab by mouth 20 Tab 1 05/22/19 Discontin NULEV; SYMAX FASTABS; every 4 hours as needed 17 17 ued HYOMAX-FT; ED-SPAZ; for Cramps. OSCIMIN) 0.125 mg rapid dissolve tablet sulfamethoxazole-trimetho Take 1 Tab by mouth twice 6 Tab 0 05/22/19 05/25/19 prim (BACTRIM DS) 800-160 daily for 3 days. 17 17 mg tablet Active Problems Problem Noted Date Interstitial cystitis 05/21/2016 Hematuria 05/02/2016 Last Assessment & Plan: - [...] Encounters Date Type Specialty Providers Description 05/21/2016 [facility] Lasha Ramírez MD Interstitial cystitis Encounter 05/21/2016 Surgery Lasha Ramírez MD CYSTOSCOPY, HYDRODISTENSION 05/20/2016 Anesthesia Ami Harrington MD Event 05/13/2016 [facility] Radiology Lasha Ramírez MD Encounter 05/13/2016 Screening Form 05/02/2016 Office Visit Urology Lasha Ramírez MD Hematuria ( Primary Dx); Dysuria 05/02/2016 Prep for Case Urology Lasha Ramírez MD Social History Tobacco Use Types Packs/Day Years Used Date Current Every Day Smoker Cigarettes 0.25 4 Smokeless Tobacco: Never Used Tobacco Cessation: Ready to Quit: No Comments: Alcohol Use Drinks/Week oz/Week Comments No Last Filed Vital Signs Vital Sign Reading Time Taken Blood Pressure 107/62 05/21/2016 3:00 PM CDT Pulse 83 05/21/2016 3:00 PM CDT Temperature 36.9 C (98.4 F) 05/21/2016 3:00 PM CDT 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 Height 1.626 m (5' 4") 05/21/2016 12:18 PM CDT Weight 62 kg (136 lb 11 oz) 05/21/2016 12:18 PM CDT Body Mass Index 23.45 05/21/2016 12:18 PM CDT Oxygen Saturation 100% 05/21/2016 3:00 PM CDT Plan of Care Date Type Specialty Providers Description 08/01/2016 Appointment Urology Lasha Ramírez MD [address] [facility] [address] [place] [address] [phone] (Fax) Health Maintenance Due Date Last Done Comments Physical (Comprehensive) 06/19/1999 Exam Hpv Vaccines (#1) 06/19/2003 Pertussis Vaccine 06/19/2003 Tetanus Vaccine 2009 Cervical Cancer Screening 2013 Influenza Vaccine 11/08/2016 Procedures from Last 3 Months Procedure Name Priority Date/Time Associated Diagnosis Comments TELEMETRY STRIPS-SCAN 05/22/2016 Results for this 10:08 AM CDT procedure are in the results section. CYSTOSCOPY, 05/21/2016 Interstitial cystitis HYDRODISTENSION 1:50 PM CDT Results from Last 3 Months TELEMETRY STRIPS-SCAN (05/22/2016 10:08 AM) Narrative Ordered by an unspecified provider. TEST-URINE (05/21/2016 12:15 PM) Component Value Range Urine-HCG NEG Specific Crivitz 1.016 Specimen Urine NON-DIRECTOR OF MANAGED CARE CYTOLOGY (BODY FLUIDS/TISSUE) (05/21/2016 8:25 AM) Component Value Range Cytology [facility] [email or web address] Hannah Singletary MD, Director Cytopathology Department of Pathology and Laboratory Medicine [facility] [place] [address] Office: [phone] CYTOLOGY REPORT NAME: HENRI BARROS CYTOLOGY #: [id number] MR #: [id number] ALT ID #: [id number] #: [id number] LOCATION: DATE OF PROCEDURE: 05/21/2016 08:25 AGE: 25 SEX: F DATE RECEIVED: 05/22/2016 : 1990 TIME RECEIVED: 08:25 PHYSICIAN: LASHA RAMÍREZ DATE OF REPORT: 05/23/2016 COPY TO: DATE OF PRINTIN05/23/2016 HISTORY: Date of Last Menstrual Period: None Given Menstrual History: None Given Contraceptive History: None Given Cancer History: None Given Infection History: None Given Treatment History: None Given Other Clinical Conditions: None Given CLINICAL DIAGNOSIS: 25 year old female with hematuria. MATERIAL RECEIVED: A: Urinary Bladder Washing ################################################## ###################### Final Diagnosis: A. Urinary Bladder Washing: Atypical urothelial cells present. Blood. Attestation: By this signature, I attest that I have personally formulated the final interpretation expressed in this report and that the above diagnosis is based upon my examination of the slides and/or other material indicated in this report. mp/05/23/2016 +++Electronically Signed Out By Carol Ramirez M.D.+++ Cervical cytology is a SCREENING TEST primarily for detecting cancers and precancerous lesions. This screening test has a well documented false negative rate. Your patient's pap test results should be interpreted in conjunction with history and clinical findings. Reported using [employer] [facility] terminology. ################################################## ###################### CT ABD/PELV WO/W CONTRAST (05/13/2016 3:40 PM) Impressions 1. No hydronephrosis, nephrolithiasis, enhancing renal mass, or urothelial filling defect. 2. No abdominopelvic inflammatory mass, lymphadenopathy, or ascites. Finalized by BEA MCDONALD M.D. on 05/14/2016 8:30 AM. Dictated by BEA MCDONALD M.D. on 05/14/2016 8:[address] ABDOMEN AND PELVIS Clinical Indication:Female, 25 years old. Hematuria. Technique:Multiple contiguous axial images were obtained through the abdomen and pelvis following the administration of IV contrast material. Noncontrast as well as portal venous and delayed phase imaging was obtained through the abdomen. Post processing coronal and sagittal reconstruction images were made from the axial images. IV contrast: Isovue-370 Bowel contrast:None Comparison: None FINDINGS: Lower Thorax: Tiny, 2 to 3 mm nodular opacity along the left fissure in the lingula (series 3 image 4), likely a tiny scar or intrafissural lymph node. Lung bases otherwise clear. Heart size normal. Liver and Biliary system: Unremarkable. Spleen: Unremarkable. Adrenal Glands and Kidneys: Adrenal glands unremarkable. Kidneys are symmetric in size, enhancement, and excretion. No nephrolithiasis or hydronephrosis. No enhancing renal mass. The ureters are well opacified on the delayed images. No distal ureteral calculi or additional urothelial filling defect. Pancreas and Retroperitoneum: Unremarkable. Aorta and Major Vessels: Normal caliber abdominal aorta. No significant atherosclerotic plaque. Bowel, Mesentery and Peritoneal space: Unremarkable. Previous appendectomy. Pelvis: Urinary bladder incompletely distended but grossly unremarkable. No intraluminal filling defect. Uterus and adnexa within normal limits for age. No pelvic lymphadenopathy or ascites. Abdominal wall and Osseous Structures: No destructive osseous lesion. Procedure Note Interface, Radiant Results - Tue May 14, 2016 8:[address] ABDOMEN AND PELVIS Clinical Indication: Female, 25 years old. Hematuria. Technique: Multiple contiguous axial images were obtained through the abdomen and pelvis following the administration of IV contrast material. Noncontrast as well as portal venous and delayed phase imaging was obtained through the abdomen. Post processing coronal and sagittal reconstruction images were made from the axial images. IV contrast: Isovue-370 Bowel contrast: None Comparison: None FINDINGS: Lower Thorax: Tiny, 2 to 3 mm nodular opacity along the left fissure in the lingula (series 3 image 4), likely a tiny scar or intrafissural lymph node. Lung bases otherwise clear. Heart size normal. Liver and Biliary system: Unremarkable. Spleen: Unremarkable. Adrenal Glands and Kidneys: Adrenal glands unremarkable. Kidneys are symmetric in size, enhancement, and excretion. No nephrolithiasis or hydronephrosis. No enhancing renal mass. The ureters are well opacified on the delayed images. No distal ureteral calculi or additional urothelial filling defect. Pancreas and Retroperitoneum: Unremarkable. Aorta and Major Vessels: Normal caliber abdominal aorta. No significant atherosclerotic plaque. Bowel, Mesentery and Peritoneal space: Unremarkable. Previous appendectomy. Pelvis: Urinary bladder incompletely distended but grossly unremarkable. No intraluminal filling defect. Uterus and adnexa within normal limits for age. No pelvic lymphadenopathy or ascites. Abdominal wall and Osseous Structures: No destructive osseous lesion. IMPRESSION 1. No hydronephrosis, nephrolithiasis, enhancing renal mass, or urothelial filling defect. 2. No abdominopelvic inflammatory mass, lymphadenopathy, or ascites. Finalized by BEA MCDONALD M.D. on 05/14/2016 8:30 AM. Dictated by BEA MCDONALD M.D. on 05/14/2016 8:10 AM. POC URINE DIPSTICK MANUAL READ (05/02/2016) Component Value Range Urine Glucose POC neg Urine Bilirubin POC neg Urine Ketone POC neg Urine Specific Crivitz 1.025 POC Urine Blood POC neg Urine PH POC 5.0 Urine Protein POC neg Urine Urobilinogen POC neg Urine Nitrite POC neg Urine Leukocytes POC neg Color,UA yellow Turbidity,UA clear Specimen Urine
--- NOTE | 2016-05-27 20:13 | ED Headache ---
General Chief Complaint: Head/Cervical Problems Stated Complaint: MIGRAINE Nursing Triage Note: PT TO ED 4 W/ C/O MIGRAINE ONSET THIS AM. DENIES IMPROVEMENT W/ PRESCRIBED MEDS Nursing Sepsis Screen: No Definite Risk Source: patient, family (father) Exam Limitations: no limitations History of Present Illness Time seen by provider: 20:02 Initial Comments 25-year-old female patient presents to the emergency department complains of a migraine beginning this a.m. Patient states she is on oxycodone for a cystoscopy that was performed on 21 May. Patient denies improvement in symptoms with medication. Has not had indomethacin since early this a.m. No Tylenol or oxycodone since yesterday. Timing/Duration: waxing and waning, other (this morning) Severity/Quality: throbbing Location: frontal, occipital (base of the skull) Prior Headaches/Recent Trauma: frequent headaches Modifying Factors: worse with exposure to light, worse with other (sound sensitivity.) Associated Symptoms: No confusion, No fatigue, No fever/chills, No loss of consciousness, nausea/vomitingNo nasal congestion, No nasal drainage, No numbness in legs/feet, No rash, No seizures, No stiff neck Allergies and Home Medications Allergies Coded Allergies: sumatriptan (Unverified Allergy, Severe, ANAPHYLAXIS, 09/20/13) Penicillins (Unverified Allergy, Unknown, 09/20/13) sumatriptan succinate (Verified Adverse Reaction, Mild, 04/01/11) Home Medications Alprazolam 1 Mg Tablet #90 (Reported) Duloxetine HCl 60 Mg Capsule.dr 60 MG PO (Reported) Ibuprofen 600 Mg Tablet 600 MG PO Q6H PRN PRN PAIN (Reported) Omeprazole 20 Mg Capsule.dr #30 (Reported) Ondansetron 4 Mg Tab.rapdis #10 4 MG PO Q4H Prescribed by: YE CARBALLO on 05/07/161922 Prednisone 20 Mg Tab #4 20 MG PO DAILY Prescribed by: CHRISTOPHE LEAHY on 03/29/16 0129 Constitutional: No chills, No dizziness, No fever, No malaise Eyes: Denies Blurred Vision, Denies Decreased Acuity, Denies Pain, PhotophobiaDenies Vision Changes Ears, Nose, Mouth, Throat: denies ear pain, denies ear discharge, denies nose pain, denies nose discharge, denies mouth pain, denies mouth swelling, denies loose teeth, denies throat pain, denies throat swelling Respiratory: no symptoms reported Cardiovascular: no symptoms reported Gastrointestinal: No abdominal pain, No constipation, No diarrhea, loss of appetite nausea vomiting Genitourinary: no symptoms reported Musculoskeletal: neck pain (base of the skull paraspinous muscles.) Skin: no symptoms reported Psychiatric/Neurological: HeadacheDenies Numbness, Denies Paresthesia, Denies Tingling, Denies Weakness All Other Systems Reviewed Negative Unless Noted: Yes (Negative excepted noted.) Past Uolpjyv-Bpsfkk-Uvvxzb Hx Patient Social History Alcohol Use: Denies Use Recreational Drug Use: No Smoking Status: Current Everyday Smoker Type Used: Cigarettes Recent Foreign Travel: No Contact w/Someone Who Travel: No Recent Infectious Disease Expo: No Recent Hopitalizations: No Immunizations Up To Date Tetanus Booster (TDap): Unknown PED Vaccines UTD: Yes Date of Influenza Vaccine: Jan 08, 2013 Seasonal Allergies Seasonal Allergies: No Surgeries HX Surgeries: Yes (SINUS, EXPL LAP, EAR TUBES, perineal tear repair) Surgeries: Abdominal, Appendectomy, Ear Surgery, Eye Surgery Respiratory Hx Respiratory Disorders: No Cardiovascular Hx Cardiac Disorders: No Neurological Hx Neurological Disorders: Yes Neurological Disorders: Headaches /Migraines 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 System Hx 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 Disorders: No Genitourinary Hx Genitourinary Disorders: No Gastrointestinal Hx Gastrointestinal Disorders: Yes Gastrointestinal Disorders: Gastroesophageal Reflux Musculoskeletal Hx Musculoskeletal Disorders: No Endocrine Hx Endocrine Disorders: No HEENT HX ENT Disorders: No Cancer Hx Cancer: No Psychosocial Hx Psychiatric Problems: Yes Behavioral Health Disorders: Sleep Difficulties, Anxiety, PTSD, Depression Integumentary HX Skin/Integumentary Disorder: No Blood Transfusions Hx Blood Disorders: No Adverse Reaction to a Blood Tr: No Reviewed Nursing Assessment Reviewed/Agree w Nursing PMH: Yes Family Medical History Significant Family History: No Pertinent Family Hx Family Medial History: FH: bipolar disorder 19 FATHER 19 MOTHER Physical Exam Vital Signs Vital Sign - Last 12Hours 05/27/16 19:42 Temp 98.0 Pulse 100 Resp 20 B/P 118/85 Pulse Ox 99 O2 Delivery Room Air Capillary Refill : Less Than 3 Seconds General Appearance: WD/WN no apparent distress HEENT: PERRL/EOMI normal ENT inspection TMs normal pharynx normal photophobia Neck: full range of motion supple normal inspection tender lateral (posterior neck (see images).) Cardiovascular: normal peripheral pulses regular rate, rhythm no edema no murmur Respiratory: lungs clear normal breath sounds no respiratory distress Gastrointestinal: non tender softNo distended Back: normal inspection Extremities: no pedal edema normal capillary refill Psychiatric: alert oriented x 3 Crainal Nerves: normal hearing normal speech PERRL Coordination/Gait: normal finger to nose normal gait negative Romberg's sign Motor/Sensory: no motor deficit no sensory deficit no pronator drift Skin: normal color warm/dry Progress/Results/Core Measures Results/Orders My Orders Orders-JENNIFER MOONEY Ketorolac Injection (Toradol Injection) (05/27/16 20:21) Orphenadrine Injection (Norflex Injectio (05/27/16 20:21) Diphenhydramine Tablet (Benadryl Tablet) (05/27/16 20:30) Promethazine Tablet (Phenergan Tablet) (05/27/16 20:30) Ondansetron Oral Dissolve Tab (Zofran (05/27/16 20:44) Vital Signs/I&O Vital Sign - Last 12Hours 05/27/16 05/27/16 19:42 21:07 Temp 98.0 Pulse 100 85 Resp 20 20 B/P 118/85 Pulse Ox 99 98 O2 Delivery Room Air Blood Pressure Mean: 96 Departure Communication Progress Notes Patient reports much improvement with medications given in the emergency department. Patient is alert and oriented 3, no acute distress. Plan for discharge to home. Patient ambulated from the emergency department without difficulty. Impression Impression: Primary Impression: Migraine Qualified Code: G43.909 - Migraine, unspecified, not intractable, without status migrainosus Disposition: 01 HOME, SELF-CARE Condition: Improved Departure-Patient Inst. Decision time for Depature: 20:29 Referrals: GAUDENCIO RAJAN MD (PCP/Family) Primary Care Physician Patient Instructions: Migraine Headache (DC) Add. Discharge Instructions: All discharge instructions reviewed with patient and/or family. Voiced understanding. Continue usual home medications. Ice packs or heating pads as needed for pain. Avoid bright lights, loud noises, computers, Smart phones, televisions until symptoms improve. Diet as tolerated. Follow-up with her family practitioner if no improvement in symptoms. Return to the emergency department for worsened headache, vomiting, decreased urination, neck pain, chest pain, shortness of air, vomiting, numbness, weakness, seizure, or any other concerns. Images Head/Face 1 - Tenderness 2 - Tenderness JENNIFER MOONEY May 27, 2016 20:13
[2016-05-27] MEDS ORDERED: KETOROLAC 60 MG/2 ML VIAL IM STA (20:21)
[2016-05-27] MEDS ORDERED: ORPHENADRINE 60 MG/2 ML (NORFLEX) AMP IM STA (20:21)
[2016-05-27] MEDS ORDERED: diphenhydrAMINE 25 MG TAB (BENADRYL) PO ONE (20:30)
[2016-05-27] MEDS ORDERED: PROMETHAZINE 25 MG (PHENERGAN) TAB PO ONE (20:30)
[2016-05-27] MEDS ORDERED: ONDANSETRON 4 MG (ZOFRAN) ORAL DISSOLVE TAB SL STA (20:44)
[2016-05-27 21:07] VITALS: BP 113/82
== END 2016-05-27 21:07 | disposition home or self-care (01) ==
LOC: EDUNIT# 18:52 → ER 18:53
DX: G43.909 Migraine, unspecified, not intractable, without status migrainosus (principal); F17.210 Nicotine dependence, cigarettes, uncomplicated
CPT/HCPCS: 96372; 99282

== ENCOUNTER 2016-05-31 09:50 | Emergency (ER) | payer MEDICARE, MEDICAID ==
[~2016-05-31] VITALS: Ht 162.6 cm; Wt 59.0 kg
--- NOTE | 2016-05-31 10:01 | ED Headache ---
General Stated Complaint: MIGRAINE Source: patient Exam Limitations: no limitations History of Present Illness Time seen by provider: 10:00 Initial Comments Patient complains of generalized throbbing headache for the past several hours. He is taking her usual migraine medicine without relief. Her neurologist recently increased her Topamax dose and added gabapentin. She was seen here last week for the same. She has multiple visits for headaches. She states is typical migraine. No vomiting. Allergies and Home Medications Allergies Coded Allergies: sumatriptan (Unverified Allergy, Severe, ANAPHYLAXIS, 09/20/13) Penicillins (Unverified Allergy, Unknown, 09/20/13) sumatriptan succinate (Verified Adverse Reaction, Mild, 04/01/11) Home Medications Alprazolam 1 Mg Tablet, #90 (Reported) Duloxetine HCl 60 Mg Capsule.dr, 60 MG PO, (Reported) Gabapentin 800 Mg Tablet, #90 (Reported) Ibuprofen 600 Mg Tablet, 600 MG PO Q6H PRN for PAIN, (Reported) Omeprazole 20 Mg Capsule.dr, #30 (Reported) Ondansetron 4 Mg Tab.rapdis, 4 MG PO Q4H, #10 Prescribed by: YE CARBALLO on 05/07/16 1923 Prednisone 20 Mg Tab, 20 MG PO DAILY, #4 Prescribed by: CHRISTOPHE LEAHY on 03/29/16 0129 Topiramate 100 Mg Tablet, #90 (Reported) Constitutional: no symptoms reported Eyes: Photophobia Respiratory: no symptoms reported Cardiovascular: no symptoms reported Gastrointestinal: nausea, No vomiting Psychiatric/Neurological: Headache All Other Systems Reviewed Negative Unless Noted: Yes Past Qeofrhc-Tfaxpp-Fpmwfw Hx Patient Social History Type Used: Cigarettes Recent Foreign Travel: No Contact w/Someone Who Travel: No Recent Hopitalizations: No Immunizations Up To Date Tetanus Booster (TDap): Unknown PED Vaccines UTD: Yes Date of Influenza Vaccine: Jan 08, 2013 Seasonal Allergies Seasonal Allergies: No Surgeries HX Surgeries: Yes (SINUS, EXPL LAP, EAR TUBES, perineal tear repair) Surgeries: Abdominal, Appendectomy, Ear Surgery, Eye Surgery Respiratory Hx Respiratory Disorders: No Cardiovascular Hx Cardiac Disorders: No Neurological Hx Neurological Disorders: Yes Neurological Disorders: Headaches /Migraines 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 System Hx 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 Disorders: No Genitourinary Hx Genitourinary Disorders: No Gastrointestinal Hx Gastrointestinal Disorders: Yes Gastrointestinal Disorders: Gastroesophageal Reflux Musculoskeletal Hx Musculoskeletal Disorders: No Endocrine Hx Endocrine Disorders: No HEENT HX ENT Disorders: No Cancer Hx Cancer: No Psychosocial Hx Psychiatric Problems: Yes Behavioral Health Disorders: Sleep Difficulties, Anxiety, PTSD, Depression Integumentary HX Skin/Integumentary Disorder: No Blood Transfusions Hx Blood Disorders: No Adverse Reaction to a Blood Tr: No Reviewed Nursing Assessment Reviewed/Agree w Nursing PMH: Yes Family Medical History Significant Family History: No Pertinent Family Hx Family Medial History: FH: bipolar disorder 19 FATHER 19 MOTHER Physical Exam Vital Signs Vital Sign - Last 12Hours 05/31/16 10:00 Temp 98.4 Pulse 92 Resp 18 B/P (MAP) 112/77 O2 Delivery Room Air Capillary Refill : General Appearance: WD/WN HEENT: PERRL/EOMI, pharynx normal Neck: supple Cardiovascular: regular rate, rhythm Respiratory: lungs clear Gastrointestinal: soft Extremities: normal inspection Psychiatric: alert, oriented x 3 Crainal Nerves: normal hearing, normal speech Coordination/Gait: normal gait Skin: normal color, warm/dry Progress/Results/Core Measures Results/Orders My Orders Orders - SIMON RAMIREZ MD Ketorolac Injection (Toradol Injection) (05/31/16 10:45) Promethazine Injection (Phenergan Injec (05/31/16 10:45) Diphenhydramine Tablet (Benadryl Tablet) (05/31/16 10:45) Medications Given in ED Current Medications Medications Dose Ordered Sig/Janine Route Start Time Stop Time Status Last Admin Dose Admin Diphenhydramine HCl 25 mg ONCE ONCE PO 05/31/16 10:45 05/31/16 10:46 DC 05/31/16 10:50 25 MG Ketorolac Tromethamine 60 mg ONCE ONCE IM 05/31/16 10:45 05/31/16 10:46 DC 05/31/16 10:51 60 MG Promethazine HCl 50 mg ONCE ONCE IM 05/31/16 10:45 05/31/16 10:46 DC 05/31/16 10:51 50 MG Vital Signs/I&O Vital Sign - Last 12Hours 05/31/16 10:00 Temp 98.4 Pulse 92 Resp 18 B/P (MAP) 112/77 O2 Delivery Room Air Progress Note : Time: 11:27 Progress Note Patient is reporting some relief. She would prefer to go home and sleep. Departure Impression Impression: Primary Impression: Headache Qualified Codes: G44.89 - Other headache syndrome Disposition: HOME, SELF-CARE Condition: Stable Departure-Patient Inst. Decision time for Depature: 11:28 Referrals: GAUDENCIO RAJAN MD (PCP/Family) Primary Care Physician Patient Instructions: Headache, Adult SIMON RAMIREZ MD May 31, 2016 10:01
[2016-05-31] MEDS ORDERED: TOPI100T11 (10:19)
[2016-05-31] MEDS ORDERED: GABA800T2 (10:19)
[2016-05-31] MEDS ORDERED: diphenhydrAMINE 25 MG TAB (BENADRYL) PO ONE (10:45)
[2016-05-31] MEDS ORDERED: KETOROLAC 60 MG/2 ML VIAL IM ONE (10:45)
[2016-05-31] MEDS ORDERED: PROMETHAZINE INJ 25 MG/ML (PHENERGAN) AMP IM ONE (10:45)
[2016-05-31 11:26] VITALS: BP 111/76
--- OUTSIDE RECORDS SUMMARY | 2016-06-02 12:17 | XMS REPORT | Continuity of Care Document ---
Author Author [facility] Organization [facility] Address Unknown Phone Unavailable Care Team Providers Care Environmental Studies Program Director Name Role Phone Dillon Simental PCP [phone] Source Comments Some departments are not documenting in the electronic medical record. If you do not see the information that you expected, contact Release of Information in the Health Information Management department at [phone] for further assistance in locating additional records.[facility] Active Allergies and Adverse Reactions Allergen [...] Cramps. OSCIMIN) 0.125 mg rapid dissolve tablet other medication 0.5 Each. 0.5 mg Estrace 05/06/19 Discontin one a day /estradiol/ 17 ued ONABOTULINUMTOXINA (BOTOX Inject to area(s) as 05/06/19 [...] Encounters Date Type Specialty Providers Description 05/21/2016 Hospital Guillermo Ramírez MD Interstitial cystitis Encounter 05/21/2016 Surgery Guillermo Ramírez MD CYSTOSCOPY, HYDRODISTENSION 05/20/2016 Anesthesia Ami Harrington MD Event 05/13/2016 Hospital Radiology Guillermo Ramírez MD Encounter 05/13/2016 Screening Form 05/02/2016 Office Visit Urology Guillermo Ramírez MD Hematuria ( Primary Dx); Dysuria 05/02/2016 Prep for Case Urology Guillermo Rmaírez MD Social History Tobacco Use Types Packs/Day [...] CDT Respiratory Rate 18 03/25/2013 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 * TEST-URINE (05/21/2016 12:15 PM) Component Value Range Urine-HCG NEG Specific [place] 1.016 Specimen Urine * NON-FLAG FOOTBALL COACH CYTOLOGY (BODY FLUIDS/TISSUE) (05/21/2016 8:25 AM) Component Value Range Cytology [email or web address] Hannah Singletary MD, Director Cytopathology Department of Pathology and Laboratory Medicine [address] [place] [id number] Office: [phone] CYTOLOGY REPORT NAME: HENRI BARROS CYTOLOGY #: [id number] MR #: [id number] ALT ID #: [id number] #: [id number] LOCATION: DATE OF PROCEDURE: 05/21/2016 08:25 AGE: 25 SEX: F DATE RECEIVED: 05/22/2016 : 1990 TIME RECEIVED: 08:25 PHYSICIAN: GUILLERMO RAMÍREZ DATE OF REPORT: 05/23/2016 COPY TO: [...] with history and clinical findings. Reported using [employer] terminology. 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 on 05/14/2016 8:10 AM. * POC URINE DIPSTICK MANUAL READ (05/02/2016) Component Value Range Urine Glucose POC neg Urine Bilirubin POC neg Urine Ketone POC neg Urine Specific [place] 1.025 POC Urine Blood POC neg Urine PH POC 5.0 Urine Protein POC neg Urine Urobilinogen POC neg Urine Nitrite POC neg Urine Leukocytes POC neg Color,UA yellow Turbidity,UA clear Specimen Urine
--- OUTSIDE RECORDS SUMMARY | 2016-06-02 12:21 | XMS REPORT ---
Author Author YVES SALGADO [facility] Address Unknown Care Team Providers Care Fire Claims Adjuster Name Role Phone YVES SALGADO Unavailable PROBLEMS Type Condition ICD9-CM Code KTR66-OA Code Onset Dates Condition Status SNOMED Code Assessment Dental examination Z01.20 Nov, Active 451377774 Problem Tension headache 307.81 Active 862470156 Problem Other, multiple, and unspecified sites, insect bite, nonvenomous, without mention of infection 919.4 Active 737231469 Problem External hemorrhoids without mention of complication 455.3 Active 07093624 Problem Acute sinusitis, unspecified 461.9 Active 98195924 Problem Acute bronchitis 466.0 Active 52267764 Problem Dysthymic disorder 300.4 Active 54021069 ALLERGIES Substance Reaction Event Type Date Status Treximet Unknown Drug Allergy Nov, Active Penicillins Unknown Non Drug Allergy Nov, Active SOCIAL HISTORY No smoking Hx information available PLAN OF CARE VITAL SIGNS Blood pressure systolic 110 mmHg 2015-11-10 Blood pressure diastolic 73 mmHg 2015-11-10 MEDICATIONS Medication Instructions Dosage Frequency Start Date End Date Duration Status Hydrocodone-Acetaminophen 7.5-500 mg 1 Tablet 1 time per dayPRN Jun Active Omeprazole Active Tizanidine HCl Active Lexapro Active Topamax Active Alprazolam Active RESULTS No Results PROCEDURES Procedure Date Ordered Related Diagnosis Body Site LTD ORAL EVALUATION - PROBLEM FOCUS Nov 10, 2015 INTRAORL-PERIAPICAL 1 FILM 82400 Nov 10, 2015 BITEWING - SINGLE FILM Nov 10, 2015 IMMUNIZATIONS No Known Immunizations
--- OUTSIDE RECORDS SUMMARY | 2016-06-02 12:26 | XMS REPORT | Continuity of Care Document ---
Author Author Counts Include [facility] [place] Address Unknown Phone Unavailable Allergies Active Description Code Type Severity Reaction Onset Reported/Identified Relationship to Patient Clinical Status Yes naproxen sodium [id number] Drug Allergy Mild N/A 04/01/2011 Yes sumatriptan succinate [id number] Drug Allergy Mild N/A 04/01/2011 Yes Penicillins Drug Allergy 07/02/2011 Yes Treximet Drug Allergy 07/02/2011 Yes sumatriptan [id number] Drug Allergy Severe ANAPHYLAXIS 09/20/2013 Yes Penicillins [id number] Drug Allergy Unknown N/A 09/20/2013 Medications Problems Date Dx Coded Attending Type Code Diagnosis Diagnosed By 07/02/2011 300.4 DYSTHYMIC DISORDER 07/02/2011 URIEL BENITEZ APRN 300.4 DYSTHYMIC DISORDER 08/26/2011 466.0 ACUTE BRONCHITIS 08/26/2011 URIEL BENITEZ APRN 466.0 ACUTE BRONCHITIS 09/03/2011 455.3 EXTERNAL HEMORRHOIDS WITHOUT COMPLICATION 09/03/2011 461.9 ACUTE SINUSITIS UNSPECIFIED 09/03/2011 URIEL BENITEZ APRN S 455.3 EXTERNAL HEMORRHOIDS WITHOUT COMPLICATION 09/03/2011 URIEL BENITEZ APRN 461.9 ACUTE SINUSITIS UNSPECIFIED 10/14/2011 307.81 TENSION HEADACHE 10/14/2011 URIEL BENITEZ APRN S 307.81 TENSION HEADACHE 10/23/2011 919.4 INSECT BITE NONVENOMOUS OF OTHER MULTIPLE AND UNSPECIFIED SITES WITHOUT INFECTION 10/23/2011 URIEL BENITEZ APRN S 919.4 INSECT BITE NONVENOMOUS OF OTHER MULTIPLE AND UNSPECIFIED SITES WITHOUT INFECTION 07/27/2013 JUAN MIGUEL JIMENEZ APRN Ot 780.2 11/12/2013 JUAN MIGUEL JIMENEZ GAME AUTHOR Ot 112.1 11/12/2013 JUAN MIGUEL JIMENEZ GAME AUTHOR Ot 782.0 12/03/2013 JENNIFER ROSAS Ot 599.0 URIN TRACT INFECTION NOS 12/03/2013 JENNIFER ROSAS Ot 789.00 ABDOMINAL PAIN, UNSPECIFIED SITE 12/03/2013 JENNIFER ROSAS Ot V72.41 EXAMINATION OR TEST, NEGATIVE 02/20/2014 JUAN MIGUEL JIMENEZ APRN Ot 695.89 ERYTHEMATOUS COND NEC 02/20/2014 JUAN MIGUEL JIMENEZ APRN Ot 782.1 NONSPECIF SKIN ERUPT NEC 03/10/2014 BILLY MIRELES MD Ot 599.0 URIN TRACT INFECTION NOS 03/10/2014 BILLY MIRELES MD Ot 788.1 DYSURIA 04/01/2014 ZAHRA YUN, IONA Key Ot 346.90 MIGRAINE UNSPECIFIED W/O INTRACT MGRN W08/23/2014 JENNIFER ROSAS Ot 346.90 MIGRAINE UNSPECIFIED W/O INTRACT MGRN W 08/23/2014 JENNIFER ROSAS Ot 724.2 LUMBAGO 08/23/2014 JENNIFER ROSAS Ot 788.1 DYSURIA 01/11/2015 JUAN MIGUEL JIMENEZ APRN Ot F17.211 NICOTINE DEPENDENCE, CIGARETTES, IN JOHN 01/11/2015 JUAN MIGUEL JIMENEZ APRN Ot R55 SYNCOPE AND COLLAPSE 01/11/2015 JUAN MIGUEL JIMENEZ APRN Ot Z33.1 STATE, INCIDENTAL 01/11/2015 JUAN MIGUEL JIMENEZ APRN Ot Z3A.09 9 WEEKS GESTATION OF 01/11/2015 JUAN MIGUEL JIMENEZ APRN Ot Z73.3 STRESS, NOT ELSEWHERE CLASSIFIED 06/06/2015 TALA GONZALEZ DO Ot O99.89 OTH DISEASES AND CONDITIONS COMPL PREG/C 06/06/2015 TALA GONZALEZ DO Ot R10.33 PERIUMBILICAL PAIN 06/06/2015 TALA GONZALEZ DO Ot Z3A.30 30 WEEKS GESTATION OF 07/08/2015 LUIS A ARRIOLA MD Ot O23.43 UNSP INFCT OF URINARY TRACT IN 07/08/2015 LUIS A ARRIOLA MD Ot Z3A.35 35 WEEKS GESTATION OF 07/17/2015 LUIS A ARRIOLA MD Ot O23.43 UNSP INFCT OF URINARY TRACT IN 07/17/2015 ZEINAB YUN, LUIS A N Ot Z3A.35 35 WEEKS GESTATION OF 07/19/2015 ZEINAB YUN, LUIS A Allen Ot O60.03 LABOR WITHOUT DELIVERY, THIRD TR 07/19/2015 ZEINAB YUN, LUIS A N Ot Z3A.36 36 WEEKS GESTATION OF 07/22/2015 GONZALEZ DO TALA C Ot O47.1 FALSE LABOR AT OR AFTER 37 COMPLETED WEE 07/22/2015 GONZALEZ DO TALA C Ot Z3A.37 37 WEEKS GESTATION OF 07/26/2015 GONZALEZ DO TALA C Ot O47.1 FALSE LABOR AT OR AFTER 37 COMPLETED WEE 07/26/2015 GONZALEZ DO TALA C Ot Z3A.37 37 WEEKS GESTATION OF 07/27/2015 ZEINAB YUN, LUIS A N Ot O60.03 LABOR WITHOUT DELIVERY, THIRD TR 07/27/2015 LUIS A ARRIOLA MD N Ot Z3A.36 36 WEEKS GESTATION OF 08/04/2015 GONZALEZ DO TALA C Ot O47.1 FALSE LABOR AT OR AFTER 37 COMPLETED WEE 08/04/2015 GONZALEZ DO TALA C Ot Z3A.37 37 WEEKS GESTATION OF 08/10/2015 LISA QUINTANA TALA C Ot D62 ACUTE POSTHEMORRHAGIC ANEMIA 08/10/2015 LISA QUINTANA TALA C Ot O70.2 THIRD DEGREE PERINEAL LACERATION DURING 08/10/2015 LISA QUINTANA TALA C Ot O76 ABNLT IN HEART RATE AND RHYTHM COM 08/10/2015 PIA GONZALEZ DOA C Ot O90.81 ANEMIA OF THE PUERPERIUM 08/10/2015 LISA QUINTANA TALA C Ot Z23 ENCOUNTER FOR IMMUNIZATION 08/10/2015 PIA GONZALEZ DOA C Ot Z37.0 SINGLE LIVE 08/10/2015 PIA GONZALEZ DOA C Ot Z3A.39 39 WEEKS GESTATION OF 08/12/2015 SIMON RAMIREZ MD Ot F17.210 NICOTINE DEPENDENCE, CIGARETTES, UNCOMPL 08/12/2015 SIMON RAMIREZ MD, Ot N39.0 URINARY TRACT INFECTION, SITE NOT SPECIF 08/14/2015 SIMON RAMIREZ MD, Ot F17.210 NICOTINE DEPENDENCE, CIGARETTES, UNCOMPL 08/14/2015 ASHLEY MD, SIMON A Ot N39.0 URINARY TRACT INFECTION, SITE NOT SPECIF 11/12/2015 DONTE YUN, CHRISTOPHE Madsen Ot J02.9 ACUTE PHARYNGITIS, UNSPECIFIED 11/12/2015 DONTE YUN, CHRISTOPHE Madsen Ot J06.9 ACUTE UPPER RESPIRATORY INFECTION, UNSPE 11/12/2015 DONTE YUN, CHRISTOPHE Madsen Ot N39.0 URINARY TRACT INFECTION, SITE NOT SPECIF 11/29/2015 ALINE YUN, BILLY Roy Ot K59.00 CONSTIPATION, UNSPECIFIED 11/29/2015 ALINE YUN, BILLY Roy Ot R10.9 UNSPECIFIED ABDOMINAL PAIN 11/29/2015 ALINE YUN, BILLY Roy Ot R30.0 DYSURIA 12/30/2015 BRYCE, STACEY SPEECH THERAPY TEACHER Ot F17.210 NICOTINE DEPENDENCE, CIGARETTES, UNCOMPL 12/30/2015 BRYCE, STACEY SPEECH THERAPY TEACHER Ot G43.909 MIGRAINE, UNSP, NOT INTRACTABLE, WITHOUT 12/30/2015 BRYCE, STACEY SPEECH THERAPY TEACHER Ot R51 HEADACHE 12/30/2015 BRYCE, STACEY SPEECH THERAPY TEACHER Ot Z79.899 OTHER GOLD AND SILVER ASSAYER (CURRENT) DRUG THERAPY 01/01/2016 BRYCE, STACEY SPEECH THERAPY TEACHER Ot F17.210 NICOTINE DEPENDENCE, CIGARETTES, UNCOMPL 01/01/2016 BRYCE, STACEY SPEECH THERAPY TEACHER Ot G43.909 MIGRAINE, UNSP, NOT INTRACTABLE, WITHOUT 01/01/2016 BRYCE, STACEY SPEECH THERAPY TEACHER Ot R51 HEADACHE 01/01/2016 BRYCE, STACEY SPEECH THERAPY TEACHER Ot Z79.899 OTHER CARE HOME (CURRENT) DRUG THERAPY 02/29/2016 JUAN MIGUEL JIMENEZ GAME AUTHOR Ot R51 HEADACHE 03/01/2016 JUAN MIGUEL JIMENEZ GAME AUTHOR Ot R51 HEADACHE 03/15/2016 JUAN MIGUEL JIMENEZ APRN Ot G43.909 MIGRAINE, UNSP, NOT INTRACTABLE, WITHOUT 03/15/2016 JUAN MIGUEL JIMENEZ APRN Ot R51 HEADACHE 03/17/2016 TENZIN YUN, FADI Bennett Ot F17.210 NICOTINE DEPENDENCE, CIGARETTES, UNCOMPL 03/17/2016 TENZIN YNU, FADI Bennett Ot G43.909 MIGRAINE, UNSP, NOT INTRACTABLE, WITHOUT 03/18/2016 JUANM IGUEL JIMENEZ APRN Ot G43.909 MIGRAINE, UNSP, NOT INTRACTABLE, WITHOUT 03/18/2016 JUAN MIGUEL JIMENEZ APRN Ot R51 HEADACHE 03/18/2016 TENZIN YUN, FADI Bennett Ot F17.210 NICOTINE DEPENDENCE, CIGARETTES, UNCOMPL 03/18/2016 TENZIN YUN, FADI Bennett Ot G43.909 MIGRAINE, UNSP, NOT INTRACTABLE, WITHOUT 03/26/2016 JENNIFER ROSAS Ot F17.210 NICOTINE DEPENDENCE, CIGARETTES, UNCOMPL 03/26/2016 JENNIFER ROSAS Ot G43.909 MIGRAINE, UNSP, NOT INTRACTABLE, WITHOUT 03/27/2016 JENNIFER ROSAS Ot F17.210 NICOTINE DEPENDENCE, CIGARETTES, UNCOMPL 03/27/2016 JENNIFER ROSAS Ot G43.909 MIGRAINE, UNSP, NOT INTRACTABLE, WITHOUT 03/28/2016 JENNIFER ROSAS Ot F17.210 NICOTINE DEPENDENCE, CIGARETTES, UNCOMPL 03/28/2016 JENNIFER ROSAS Ot G43.909 MIGRAINE, UNSP, NOT INTRACTABLE, WITHOUT 03/29/2016 CHRISTOPHE KENT MD T Ot F17.210 NICOTINE DEPENDENCE, CIGARETTES, UNCOMPL 03/29/2016 CHRISTOPHE KENT MD T Ot R07.81 PLEURODYNIA 03/29/2016 CHRISTOPHE KENT MD T Ot R07.89 OTHER CHEST PAIN 03/29/2016 CHRISTOPHE KENT MD T Ot Z79.899 OTHER GOLD AND SILVER ASSAYER (CURRENT) DRUG THERAPY 04/01/2016 CHRISTOPHE KENT MD T Ot F17.210 NICOTINE DEPENDENCE, CIGARETTES, UNCOMPL 04/01/2016 CHRISTOPHE KENT MD T Ot R07.81 PLEURODYNIA 04/01/2016 CHRISTOPHE KENT MD T Ot R07.89 OTHER CHEST PAIN 04/01/2016 CHRISTOPHE KENT MD T Ot Z79.899 OTHER GOLD AND SILVER ASSAYER (CURRENT) DRUG THERAPY 04/04/2016 WILFREDO YUN, JOCELYNE Key Ot G43.019 MIGRAINE W/O AURA, INTRACTABLE, WITHOUT 04/05/2016 JENNIFER ROSAS Ot F17.210 NICOTINE DEPENDENCE, CIGARETTES, UNCOMPL 04/05/2016 JENNIFER ROSAS Ot G43.909 MIGRAINE, UNSP, NOT INTRACTABLE, WITHOUT 04/05/2016 CHRISTOPHE KENT MD Ot F17.210 NICOTINE DEPENDENCE, CIGARETTES, UNCOMPL 04/05/2016 CHRISTOPHE KENT MD Ot R07.81 PLEURODYNIA 04/05/2016 CHRISTOPHE KENT MD Ot R07.89 OTHER CHEST PAIN 04/05/2016 CHRISTOPHE KENT MD Ot Z79.899 OTHER GOLD AND SILVER ASSAYER (CURRENT) DRUG THERAPY 04/24/2016 JOCELYNE VILLALOBOS MD Ot G43.019 MIGRAINE W/O AURA, INTRACTABLE, WITHOUT 05/06/2016 JOCELYNE VILLALOBOS MD Ot G43.019 MIGRAINE W/O AURA, INTRACTABLE, WITHOUT 05/08/2016 YE CARBALLO DO Ot F17.210 NICOTINE DEPENDENCE, CIGARETTES, UNCOMPL 05/08/2016 YE CARBALLO DO Ot G89.29 OTHER CHRONIC PAIN 05/08/2016 YE CARBALLO DO, Ot R51 HEADACHE Procedures Code Description Performed By Performed On [id number] REPAIR ANAL SPHINCTER, OPEN APPROACH 08/08/2015 [id number] INTRODUCE OTH THERAP SUBST IN PERIPH VEI 08/08/2015 Results Test Result Range Complete urinalysis with reflex to culture - 11/12/15 14:19 Urine color determination YELLOW NRG Urine clarity determination CLEAR NRG Urine pH measurement by test strip 6.5 5 -9 Specific gravity of urine by test strip 1.020 1.016-1.022 Urine protein assay by test strip, semi-quantitative 2+ NEGATIVE Urine glucose detection by automated test strip NEGATIVE NEGATIVE Erythrocytes detection in urine sediment by light microscopy NEGATIVE NEGATIVE Urine ketones detection by automated test strip NEGATIVE NEGATIVE Urine nitrite detection by test strip NEGATIVE NEGATIVE Urine total bilirubin detection by test strip 1+ NEGATIVE Urine urobilinogen measurement by automated test strip (mass/volume) 4 mg/dL NORMAL Urine leukocyte esterase detection by dipstick 1+ NEGATIVE Automated urine sediment erythrocyte count by microscopy (number/high power field) NONE NRG Automated urine sediment leukocyte count by microscopy (number/high power field ) [HPF] NRG Bacteria detection in urine sediment by light microscopy LARGE NRG Crystals detection in urine sediment by light microscopy PRESENT NRG Casts detection in urine sediment by light microscopy NONE NRG Mucus detection in urine sediment by light microscopy LARGE NRG Complete urinalysis with reflex to culture YES NRG Calcium oxalate crystals detection in urine sediment by light microscopy FEW NRG Bacterial urine culture - 11/12/15 14:19 Bacterial urine culture [id number] NRG COLONY COUNT >100,000/ML NRG URINE CULTURE RESULTS <10,000/ML NRG Streptococcus pyogenes antigen detection - 11/12/15 14:28 Streptococcus pyogenes antigen detection NEGATIVE NEGATIVE Bacterial throat culture - 11/12/15 14:28 Bacterial throat culture NBS NRG Urine beta human chorionic gonadotropin (hCG) measurement - 11/29/15 10:36 Urine beta human chorionic gonadotropin (hCG) measurement NEGATIVE NEGATIVE Complete urinalysis with reflex to culture - 11/29/15 10:36 Urine color determination YELLOW NRG Urine clarity determination SLIGHTLY CLOUDY NRG Urine pH measurement by test strip 7 5- 9 Specific gravity of urine by test strip 1.015 1.016-1.022 Urine protein assay by test strip, semi-quantitative 2+ NEGATIVE Urine glucose detection by automated test strip NEGATIVE NEGATIVE Erythrocytes detection in urine sediment by light microscopy 2+ NEGATIVE Urine ketones detection by automated test strip NEGATIVE NEGATIVE Urine nitrite detection by test strip NEGATIVE NEGATIVE Urine total bilirubin detection by test strip NEGATIVE NEGATIVE Urine urobilinogen measurement by automated test strip (mass/volume) 1 mg/dL NORMAL Urine leukocyte esterase detection by dipstick 1+ NEGATIVE Automated urine sediment erythrocyte count by microscopy (number/high power field) [HPF] NRG Automated urine sediment leukocyte count by microscopy (number/high power field ) [HPF] NRG Bacteria detection in urine sediment by light microscopy TRACE NRG Squamous epithelial cells detection in urine sediment by light microscopy 2-5 NRG Crystals detection in urine sediment by light microscopy PRESENT NRG Casts detection in urine sediment by light microscopy NONE NRG Mucus detection in urine sediment by light microscopy LARGE NRG Complete urinalysis with reflex to culture NO NRG Amorphous sediment detection in urine sediment by light microscopy MOD VANESA URATES NRG Chlamydia DNA amp probe, urine - 11/29/15 10:36 Chlamydia DNA amp probe, urine Negative Negative Urine Neisseria gonorrhoeae DNA assay - 11/29/15 10:36 Gonorrhea amp DNA-urine Negative Negative Complete blood count (CBC) with automated white blood cell (WBC) differential - 11/29/15 11:21 Blood leukocytes automated count (number/volume) 8.2 10*3/ uL 4.3-11.0 Blood erythrocytes automated count (number/volume) 4.31 10*6 /uL 4.35-5.85 Venous blood hemoglobin measurement (mass/volume) 14.0 g/dL 11.5-16.0 Blood hematocrit (volume fraction) 40 % 35-52 Automated erythrocyte mean corpuscular volume 94 [foz_us] 80-99 Automated erythrocyte mean corpuscular hemoglobin (mass per erythrocyte) 33 pg 25-34 Automated erythrocyte mean corpuscular hemoglobin concentration measurement ( mass/volume) 35 g/dL 32-36 Automated erythrocyte distribution width ratio 12.8 % 10.0-14.5 Automated blood platelet count (count/volume) 251 10*3/uL 130-400 Automated blood platelet mean volume measurement 10.2 [foz_ us] 7.4-10.4 Automated blood neutrophils/100 leukocytes 52 % 42-75 Automated blood lymphocytes/100 leukocytes 40 % 12-44 Blood monocytes/100 leukocytes 7 % 0-12 Automated blood eosinophils/100 leukocytes 1 % 0-10 Automated blood basophils/100 leukocytes 1 % 0-10 Blood neutrophils automated count (number/volume) 4.2 10*3 1.8-7.8 Blood lymphocytes automated count (number/volume) 3.3 10*3 1.0-4.0 Blood monocytes automated count (number/volume) 0.5 10*3 0.0-1.0 Automated eosinophil count 0.1 10*3/uL 0.0-0.3 Automated blood basophil count (count/volume) 0.1 10*3/uL 0.0-0.1 Comprehensive metabolic panel - 11/29/15 11:21 Serum or plasma sodium measurement (moles/volume) 140 mmol/ L 135-145 Serum or plasma potassium measurement (moles/volume) 3.7 mmol/L 3.6-5.0 Serum or plasma chloride measurement (moles/volume) 115 mmol /L 98-107 Carbon dioxide 18 mmol/L 21-32 Serum or plasma anion gap determination (moles/volume) 7 mmol/L 5-14 Serum or plasma urea nitrogen measurement (mass/volume) 6 mg /dL 7-18 Serum or plasma creatinine measurement (mass/volume) 0.66 mg /dL 0.60-1.30 Serum or plasma urea nitrogen/creatinine mass ratio 9 NRG Serum or plasma creatinine measurement with calculation of estimated glomerular filtration rate > NRG Serum or plasma glucose measurement (mass/volume) 85 mg/dL 70-105 Serum or plasma calcium measurement (mass/volume) 9.1 mg/dL 8.5-10.1 Serum or plasma total bilirubin measurement (mass/volume) 0.5 mg/dL 0.1-1.0 Serum or plasma alkaline phosphatase measurement (enzymatic activity/volume) 52 U/L 40-136 Serum or plasma aspartate aminotransferase measurement (enzymatic activity/ volume) 12 U/L 5-34 Serum or plasma alanine aminotransferase measurement (enzymatic activity/volume ) 13 U/L 0-55 Serum or plasma protein measurement (mass/volume) 6.2 g/dL 6.4-8.2 Serum or plasma albumin measurement (mass/volume) 4.0 g/dL 3.2-4.5 Serum or plasma C reactive protein measurement (mass/volume) - 11/29/15 11:21 Serum or plasma C reactive protein measurement (mass/volume) 0.10 mg/dL 0.00-0.50 Automated blood complete blood count (hemogram) panel - 04/03/16 13:58 Blood leukocytes automated count (number/volume) 11.4 10*3/ uL 4.3-11.0 Blood erythrocytes automated count (number/volume) 3.93 10*6 /uL 4.35-5.85 Venous blood hemoglobin measurement (mass/volume) 13.4 g/dL 11.5-16.0 Blood hematocrit (volume fraction) 39 % 35-52 Automated erythrocyte mean corpuscular volume 100 [foz_us] 80-99 Automated erythrocyte mean corpuscular hemoglobin (mass per erythrocyte) 34 pg 25-34 Automated erythrocyte mean corpuscular hemoglobin concentration measurement ( mass/volume) 34 g/dL 32-36 Automated erythrocyte distribution width ratio 12.7 % 10.0-14.5 Automated blood platelet count (count/volume) 305 10*3/uL 130-400 Automated blood platelet mean volume measurement 9.1 [foz_us ] 7.4-10.4 Comprehensive metabolic panel - 04/03/16 13:58 Serum or plasma sodium measurement (moles/volume) 140 mmol/ L 135-145 Serum or plasma potassium measurement (moles/volume) 3.4 mmol/L 3.6-5.0 Serum or plasma chloride measurement (moles/volume) 108 mmol /L 98-107 Carbon dioxide 23 mmol/L 21-32 Serum or plasma anion gap determination (moles/volume) 9 mmol/L 5-14 Serum or plasma urea nitrogen measurement (mass/volume) 12 mg/dL 7-18 Serum or plasma creatinine measurement (mass/volume) 0.66 mg /dL 0.60-1.30 Serum or plasma urea nitrogen/creatinine mass ratio 18 NRG Serum or plasma creatinine measurement with calculation of estimated glomerular filtration rate > NRG Serum or plasma glucose measurement (mass/volume) 80 mg/dL 70-105 Serum or plasma calcium measurement (mass/volume) 9.0 mg/dL 8.5-10.1 Serum or plasma total bilirubin measurement (mass/volume) 0.4 mg/dL 0.1-1.0 Serum or plasma alkaline phosphatase measurement (enzymatic activity/volume) 47 U/L 40-136 Serum or plasma aspartate aminotransferase measurement (enzymatic activity/ volume) 8 U/L 5-34 Serum or plasma alanine aminotransferase measurement (enzymatic activity/volume ) 13 U/L 0-55 Serum or plasma protein measurement (mass/volume) 6.1 g/dL 6.4-8.2 Serum or plasma albumin measurement (mass/volume) 4.2 g/dL 3.2-4.5 Erythrocyte sedimentation rate by westergren method - 04/03/16 13:58 Erythrocyte sedimentation rate by westergren method 3 mm 0-35 Encounters ACCT No. Visit Date/Time Discharge Status Pt. Type Provider Facility Loc./Unit Complaint [id number] 12/05/2011 11:38:00 12/05/2011 23: 59:59 [facility] Outpatient URIEL BENITEZ APRN [id number] 12/05/2011 11:38:00 12/05/2011 23: 59:59 [facility] Out[facility]
== END 2016-05-31 11:26 | disposition home or self-care (01) ==
LOC: EDUNIT# 09:50 → ER 09:52
DX: R51 Headache (principal); Z79.899 Other long term (current) drug therapy
CPT/HCPCS: 96372; 99282

== ENCOUNTER 2016-06-22 20:53 | Emergency (ER) | payer MEDICARE, MEDICAID ==
[~2016-06-22] VITALS: Ht 162.6 cm; Wt 59.0 kg
[~2016-06-22 20:53] MED LIST changes: +GABA800T2; +TOPI100T11
[2016-06-22] MEDS ORDERED: PROCHLORPERAZINE 10 MG/2ML INJ (COMPAZINE) IM ONE (22:00)
[2016-06-22] MEDS ORDERED: diphenhydrAMINE 50 MG/ML INJ (BENADRYL) IM ONE (22:00)
[2016-06-22] MEDS ORDERED: KETOROLAC 60 MG/2 ML VIAL IM ONE (22:00)
--- NOTE | 2016-06-22 22:05 | ED Headache ---
General Chief Complaint: Head/Cervical Problems Stated Complaint: MIGRAINE Source: patient Exam Limitations: no limitations History of Present Illness Time seen by provider: 22:03 Initial Comments To ER with a left frontal/temporal headache that began 2 days ago and is typical of her migraines. She sees Dr. Atwood, neurologist in [place] for these and recently tried gabapentin without relief and she was then switched to Ultram. She took 2 Ultram at 10 a.m. this morning without relief. Timing/Duration: 1 week Severity/Quality: moderate Associated Symptoms: nausea/vomiting Allergies and Home Medications Allergies Coded Allergies: sumatriptan (Unverified Allergy, Severe, ANAPHYLAXIS, 09/20/13) Penicillins (Unverified Allergy, Unknown, 09/20/13) sumatriptan succinate (Verified Adverse Reaction, Mild, 04/01/11) Home Medications Alprazolam 1 Mg Tablet, #90 (Reported) Duloxetine HCl 60 Mg Capsule.dr, 60 MG PO, (Reported) Gabapentin 800 Mg Tablet, #90 (Reported) Ibuprofen 600 Mg Tablet, 600 MG PO Q6H PRN for PAIN, (Reported) Omeprazole 20 Mg Capsule.dr, #30 (Reported) Ondansetron 4 Mg Tab.rapdis, 4 MG PO Q4H, #10 Prescribed by: YE CARBALLO on 05/07/16 1923 Prednisone 20 Mg Tab, 20 MG PO DAILY, #4 Prescribed by: CHRISTOPHE LEAHY on 03/29/16 0129 Topiramate 100 Mg Tablet, #90 (Reported) Constitutional: see HPI Eyes: No Symptoms Reported Ears, Nose, Mouth, Throat: no symptoms reported Cardiovascular: no symptoms reported Genitourinary: no symptoms reported Musculoskeletal: no symptoms reported Skin: no symptoms reported Psychiatric/Neurological: See HPI, Headache Past Xtrmyoi-Kfkayb-Rqopwi Hx Patient Social History Type Used: Cigarettes Recent Foreign Travel: No Contact w/Someone Who Travel: No Recent Hopitalizations: No Immunizations Up To Date Tetanus Booster (TDap): Unknown PED Vaccines UTD: Yes Date of Influenza Vaccine: Jan 08, 2013 Seasonal Allergies Seasonal Allergies: No Surgeries HX Surgeries: Yes (SINUS, EXPL LAP, EAR TUBES, perineal tear repair) Surgeries: Abdominal, Appendectomy, Ear Surgery, Eye Surgery Respiratory Hx Respiratory Disorders: No Cardiovascular Hx Cardiac Disorders: No Neurological Hx Neurological Disorders: Yes Neurological Disorders: Headaches /Migraines 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 System Hx 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 Disorders: No Genitourinary Hx Genitourinary Disorders: No Gastrointestinal Hx Gastrointestinal Disorders: Yes Gastrointestinal Disorders: Gastroesophageal Reflux Musculoskeletal Hx Musculoskeletal Disorders: No Endocrine Hx Endocrine Disorders: No HEENT HX ENT Disorders: No Cancer Hx Cancer: No Psychosocial Hx Psychiatric Problems: Yes Behavioral Health Disorders: Sleep Difficulties, Anxiety, PTSD, Depression Integumentary HX Skin/Integumentary Disorder: No Blood Transfusions Hx Blood Disorders: No Adverse Reaction to a Blood Tr: No Family Medical History Significant Family History: No Pertinent Family Hx Family Medial History: FH: bipolar disorder 19 FATHER 19 MOTHER Physical Exam Vital Signs Capillary Refill : General Appearance: WD/WN, no apparent distress HEENT: PERRL/EOMI, normal ENT inspection Neck: non-tender, full range of motion Respiratory: no respiratory distress, no accessory muscle use Gastrointestinal: normal bowel sounds, non tender, soft Extremities: normal range of motion, non-tender Psychiatric: alert, oriented x 3 Skin: normal color, warm/dry Progress/Results/Core Measures Results/Orders My Orders Orders - JUAN MIGUEL JIMENEZ APRN Prochlorperazine Injection (Compazine In (06/22/16 22:00) Diphenhydramine Injection (Benadryl Inje (06/22/16 22:00) Ketorolac Injection (Toradol Injection) (06/22/16 22:00) Departure Impression Impression: Primary Impression: Chronic migraine Disposition: 01 HOME, SELF-CARE Condition: Improved Departure-Patient Inst. Decision time for Depature: 22:06 Referrals: GAUDENCIO RAJAN MD (PCP/Family) Primary Care Physician Patient Instructions: Migraine Headache (DC) Add. Discharge Instructions: All discharge instructions reviewed with patient and/or family. Voiced understanding. JUAN MIGUEL JIMENEZ APRN Jun 22, 2016 22:05
[2016-06-22 23:37] VITALS: BP 117/72
== END 2016-06-22 23:37 | disposition home or self-care (01) ==
LOC: EDUNIT# 20:53 → ER 20:55
DX: G43.909 Migraine, unspecified, not intractable, without status migrainosus (principal); Z79.899 Other long term (current) drug therapy
CPT/HCPCS: 96372; 99282

== ENCOUNTER 2016-07-01 19:44 | Emergency (ER) | payer MEDICARE, MEDICAID ==
[~2016-07-01] VITALS: Ht 162.6 cm; Wt 59.0 kg
[2016-07-01] MEDS ORDERED: diphenhydrAMINE 50 MG/ML INJ (BENADRYL) IV STA (20:16)
[2016-07-01] MEDS ORDERED: KETOROLAC 30 MG/ML VIAL IVP STA (20:16)
[2016-07-01] MEDS ORDERED: NS IV 1000 ML 1,000 ML ONE (20:19)
[2016-07-01] MEDS ORDERED: PROCHLORPERAZINE 10 MG/2ML INJ (COMPAZINE) IV ONE (20:30)
--- NOTE | 2016-07-01 21:03 | ED Headache ---
General Chief Complaint: Head/Cervical Problems Stated Complaint: MIGRAINE Nursing Triage Note: Pt. advises she has been experiencing a severe migrane since yesterday. She advises a hx. of migranes. Nursing Sepsis Screen: No Definite Risk Source: patient Exam Limitations: no limitations History of Present Illness Time seen by provider: 20:45 Initial Comments Here with report of central migraine headache that is typical for her and persistent since yesterday. She is following up with her neurologist next week. Denies fever or chills but does have some nausea. She is actually much improved on initial evaluation after her typical pain med order set. Has had some nausea but no vomiting. Timing/Duration: 24 hours Severity/Quality: moderate Location: frontal Prior Headaches/Recent Trauma: frequent headaches Modifying Factors: worse with exposure to light, improves with medication Associated Symptoms: No confusion, No fever/chills, No nausea/vomiting, No nasal congestion, No nasal drainage, No seizures Allergies and Home Medications Allergies Coded Allergies: sumatriptan (Unverified Allergy, Severe, ANAPHYLAXIS, 09/20/13) Penicillins (Unverified Allergy, Unknown, 09/20/13) sumatriptan succinate (Verified Adverse Reaction, Mild, 04/01/11) Home Medications Alprazolam 1 Mg Tablet, #90 (Reported) Duloxetine HCl 60 Mg Capsule.dr, 60 MG PO, (Reported) Gabapentin 800 Mg Tablet, #90 (Reported) Ibuprofen 600 Mg Tablet, 600 MG PO Q6H PRN for PAIN, (Reported) Omeprazole 20 Mg Capsule.dr, #30 (Reported) Ondansetron 4 Mg Tab.rapdis, 4 MG PO Q4H, #10 Prescribed by: YE CARBALLO on 05/07/16 1923 Prednisone 20 Mg Tab, 20 MG PO DAILY, #4 Prescribed by: CHRISTOPHE LEAHY on 03/29/16 0129 Topiramate 100 Mg Tablet, #90 (Reported) Constitutional: see HPI, No chills, No fever Eyes: No Symptoms Reported Ears, Nose, Mouth, Throat: no symptoms reported Respiratory: no symptoms reported Cardiovascular: no symptoms reported Gastrointestinal: see HPI Musculoskeletal: no symptoms reported Skin: no symptoms reported Psychiatric/Neurological: See HPI, Headache, Denies Seizure, Denies Weakness All Other Systems Reviewed Negative Unless Noted: Yes Past Umpqkck-Ztburv-Gyvhdh Hx Patient Social History Alcohol Use: Denies Use Recreational Drug Use: No Type Used: Cigarettes Recent Foreign Travel: No Contact w/Someone Who Travel: No Recent Infectious Disease Expo: No Recent Hopitalizations: No Immunizations Up To Date Tetanus Booster (TDap): Unknown PED Vaccines UTD: Yes Date of Influenza Vaccine: Jan 08, 2013 Seasonal Allergies Seasonal Allergies: No Surgeries HX Surgeries: Yes (SINUS, EXPL LAP, EAR TUBES, perineal tear repair) Surgeries: Abdominal, Appendectomy, Ear Surgery, Eye Surgery Respiratory Hx Respiratory Disorders: No Cardiovascular Hx Cardiac Disorders: No Neurological Hx Neurological Disorders: Yes Neurological Disorders: Headaches /Migraines 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 System Hx 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 Disorders: No Genitourinary Hx Genitourinary Disorders: No Gastrointestinal Hx Gastrointestinal Disorders: Yes Gastrointestinal Disorders: Gastroesophageal Reflux Musculoskeletal Hx Musculoskeletal Disorders: No Endocrine Hx Endocrine Disorders: No HEENT HX ENT Disorders: No Cancer Hx Cancer: No Psychosocial Hx Psychiatric Problems: Yes Behavioral Health Disorders: Sleep Difficulties, Anxiety, PTSD, Depression Integumentary HX Skin/Integumentary Disorder: No Blood Transfusions Hx Blood Disorders: No Adverse Reaction to a Blood Tr: No Reviewed Nursing Assessment Reviewed/Agree w Nursing PMH: Yes Family Medical History Significant Family History: No Pertinent Family Hx Family Medial History: FH: bipolar disorder 19 FATHER 19 MOTHER Physical Exam Vital Signs Vital Sign - Last 12Hours 07/01/16 20:14 Temp 98.5 Pulse 77 Resp 14 B/P (MAP) 106/72 Pulse Ox 98 O2 Delivery Room Air Capillary Refill : Less Than 3 Seconds General Appearance: WD/WN, mild distress HEENT: PERRL/EOMI, pharynx normal Neck: full range of motion, supple Cardiovascular: regular rate, rhythm, no murmur Respiratory: lungs clear, normal breath sounds Gastrointestinal: non tender, soft Back: normal inspection, no vertebral tenderness Extremities: normal range of motion, non-tender Psychiatric: alert, oriented x 3 Crainal Nerves: normal hearing, normal speech, PERRL Coordination/Gait: normal finger to nose, normal gait Motor/Sensory: no motor deficit, no sensory deficit Skin: normal color, warm/dry Progress/Results/Core Measures Results/Orders My Orders Orders - BILLY MIRELES MD Diphenhydramine Injection (Benadryl Inje (07/01/16 20:16) Ketorolac Injection (Toradol Injection) (07/01/16 20:16) Saline Lock/Iv-Start (07/01/16 20:16) Prochlorperazine Injection (Compazine In (07/01/16 20:30) Ns Iv 1000 Ml (Sodium Chloride 0.9%) (07/01/16 20:19) Medications Given in ED Current Medications Medications Dose Ordered Sig/Janine Route Start Time Stop Time Status Last Admin Dose Admin Prochlorperazine Edisylate 5 mg ONCE ONCE IV 07/01/16 20:30 07/01/16 20:31 DC 07/01/16 20:22 5 MG Sodium Chloride 1,000 ml @ ud STK-MED ONCE .ROUTE 07/01/16 20:19 07/01/16 20:23 DC 07/01/16 20:24 9,999 MLS/HR Vital Signs/I&O Vital Sign - Last 12Hours 07/01/16 20:14 Temp 98.5 Pulse 77 Resp 14 B/P (MAP) 106/72 Pulse Ox 98 O2 Delivery Room Air Blood Pressure Mean: 83 Progress Note : Progress Note Seen and evaluated. IV, normal saline 1 L bolus, Toradol 30 mg IV, Benadryl 50 mg IV and Compazine 5 mg IV ordered. Patient markedly improved after meds and fluids. Discharged home with return precautions. Patient verbalize understanding instructions and agreement with plan. Departure Impression Impression: Primary Impression: Migraine Qualified Codes: G43.909 - Migraine, unspecified, not intractable, without status migrainosus Disposition: 01 HOME, SELF-CARE Condition: Improved Departure-Patient Inst. Decision time for Depature: 21:00 Referrals: NO,LOCAL PHYSICIAN (PCP/Family) Primary Care Physician Patient Instructions: Migraine Headache (DC) Add. Discharge Instructions: All discharge instructions reviewed with patient and/or family. Voiced understanding. Continue home medications as directed. Drink plenty of fluids. Follow-up with your neurologist as scheduled. Return for worse pain, fever, vomiting, weakness , breathing problems or other concerns as needed. BILLY MIRELES MD Jul 01, 2016 21:02
[2016-07-01 21:13] VITALS: BP 110/76
== END 2016-07-01 21:12 | disposition home or self-care (01) ==
LOC: EDUNIT# 19:44 → ER 19:46
DX: G43.909 Migraine, unspecified, not intractable, without status migrainosus (principal); Z79.899 Other long term (current) drug therapy
CPT/HCPCS: 96361; 96374; 96375

== ENCOUNTER 2016-07-06 12:56 | Emergency (ER) | payer MEDICARE, MEDICAID ==
[~2016-07-06] VITALS: Ht 157.5 cm; Wt 56.7 kg
[2016-07-06] MEDS ORDERED: KETOROLAC 60 MG/2 ML VIAL IM STA (13:33)
[2016-07-06] MEDS ORDERED: ONDANSETRON 4 MG (ZOFRAN) ORAL DISSOLVE TAB SL STA (13:33)
[2016-07-06] MEDS ORDERED: ORPHENADRINE 60 MG/2 ML (NORFLEX) AMP IM STA (13:33)
--- NOTE | 2016-07-06 13:38 | ED Headache ---
General Chief Complaint: Head/Cervical Problems Stated Complaint: MIGRAINE Nursing Triage Note: PT CO OF MIGRAINE DELAROSA, STATES STARTED TODAY, HAS THEM OFTEN SEES DR CUELLAR IN [facility] AND DR VILLALOBOS IN [place]. HAS BEEN SEEN FREQUENTLY IN ED FOR MIGRAINES Nursing Sepsis Screen: No Definite Risk Source: patient Exam Limitations: no limitations History of Present Illness Time seen by provider: 13:38 Initial Comments 26 yo female patient presents to the ED with c/o migraine DELAROSA beginning earlier today. Patient sees Dr. Villalobso in [place] and Dr. Simental in [place]. States she is scheduled with Dr. Villalobos on 0 '. States she is taking tramadol for headaches, but states she thinks this is making the headaches worse. Timing/Duration: 4-6 hours Severity/Quality: throbbing Location: frontal Prior Headaches/Recent Trauma: chronic headaches Modifying Factors: worse with exposure to light, worse with other (sound sensitivities) Allergies and Home Medications Allergies Coded Allergies: sumatriptan (Unverified Allergy, Severe, ANAPHYLAXIS, 09/20/13) Penicillins (Unverified Allergy, Unknown, 09/20/13) sumatriptan succinate (Verified Adverse Reaction, Mild, 04/01/11) Home Medications Alprazolam 1 Mg Tablet, #90 (Reported) Duloxetine HCl 60 Mg Capsule.dr, 60 MG PO, (Reported) Gabapentin 800 Mg Tablet, #90 (Reported) Ibuprofen 600 Mg Tablet, 600 MG PO Q6H PRN for PAIN, (Reported) Omeprazole 20 Mg Capsule.dr, #30 (Reported) Ondansetron 4 Mg Tab.rapdis, 4 MG PO Q4H, #10 Prescribed by: YE CARBALLO on 05/07/161922 Topiramate 100 Mg Tablet, #90 (Reported) Constitutional: No dizziness, No fever, No malaise Eyes: Denies Blurred Vision, Denies Drainage, Denies Decreased Acuity, Photophobia, Denies Vision Changes, Glasses Ears, Nose, Mouth, Throat: no symptoms reported Respiratory: no symptoms reported Cardiovascular: no symptoms reported Gastrointestinal: No abdominal pain, No constipation, No diarrhea, loss of appetite, nausea, No vomiting Genitourinary: No decreased output, No dysuria, No frequency, No hematuria, No pain Musculoskeletal: no symptoms reported Skin: no symptoms reported Psychiatric/Neurological: See HPI, Headache, Denies Numbness, Denies Paresthesia, Denies Seizure, Denies Tingling, Denies Weakness All Other Systems Reviewed Negative Unless Noted: Yes (Negative excepted noted.) Past Qsbnedv-Hznltd-Nyqofv Hx Patient Social History Alcohol Use: Denies Use Recreational Drug Use: No Smoking Status: Current Everyday Smoker Type Used: Cigarettes Recent Foreign Travel: No Contact w/Someone Who Travel: No Recent Infectious Disease Expo: No Recent Hopitalizations: No Immunizations Up To Date Tetanus Booster (TDap): Unknown PED Vaccines UTD: Yes Date of Influenza Vaccine: Jan 08, 2013 Seasonal Allergies Seasonal Allergies: No Surgeries HX Surgeries: Yes (SINUS, EXPL LAP, EAR TUBES, perineal tear repair) Surgeries: Abdominal, Appendectomy, Ear Surgery, Eye Surgery Respiratory Hx Respiratory Disorders: No Cardiovascular Hx Cardiac Disorders: No Neurological Hx Neurological Disorders: Yes Neurological Disorders: Headaches /Migraines 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 System : No (DEPO) Hx 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 Disorders: No Genitourinary Hx Genitourinary Disorders: No Gastrointestinal Hx Gastrointestinal Disorders: Yes Gastrointestinal Disorders: Gastroesophageal Reflux Musculoskeletal Hx Musculoskeletal Disorders: No Endocrine Hx Endocrine Disorders: No HEENT HX ENT Disorders: No Cancer Hx Cancer: No Psychosocial Hx Psychiatric Problems: Yes Behavioral Health Disorders: Sleep Difficulties, Anxiety, PTSD, Depression Integumentary HX Skin/Integumentary Disorder: No Blood Transfusions Hx Blood Disorders: No Adverse Reaction to a Blood Tr: No Reviewed Nursing Assessment Reviewed/Agree w Nursing PMH: Yes Family Medical History Significant Family History: No Pertinent Family Hx Family Medial History: FH: bipolar disorder 19 FATHER 19 MOTHER Physical Exam Vital Signs Vital Sign - Last 12Hours 07/06/16 13:10 Temp 97.9 Pulse 93 Resp 18 B/P (MAP) 143/93 Pulse Ox 99 Capillary Refill : Less Than 3 Seconds General Appearance: WD/WN, no apparent distress HEENT: PERRL/EOMI, pharynx normal, photophobia Neck: non-tender, full range of motion, supple, normal inspection Cardiovascular: regular rate, rhythm, no murmur Respiratory: lungs clear, normal breath sounds, no respiratory distress Gastrointestinal: non tender, soft, no organomegaly, No distended Back: normal inspection Extremities: no pedal edema, normal capillary refill Psychiatric: alert, oriented x 3 Crainal Nerves: normal hearing, normal speech, PERRL Coordination/Gait: normal finger to nose, normal gait, negative Romberg's sign Motor/Sensory: no motor deficit, no sensory deficit, no pronator drift Skin: normal color, warm/dry Progress/Results/Core Measures Results/Orders My Orders Orders - JENNIFER MOONEY Ketorolac Injection (Toradol Injection) (07/06/16 13:33) Orphenadrine Injection (Norflex Injectio (07/06/16 13:33) Ondansetron Oral Dissolve Tab (Zofran (07/06/16 13:33) Diphenhydramine Tablet (Benadryl Tablet) (07/06/16 13:45) Medications Given in ED Current Medications Medications Dose Ordered Sig/Janine Route Start Time Stop Time Status Last Admin Dose Admin Diphenhydramine HCl 25 mg ONCE ONCE PO 07/06/16 13:45 07/06/16 13:46 DC 07/06/16 13:44 25 MG Vital Signs/I&O Vital Sign - Last 12Hours 07/06/16 07/06/16 13:10 13:26 Temp 97.9 Pulse 93 124 Resp 18 B/P (MAP) 143/93 98/69 Pulse Ox 99 Blood Pressure Mean: 110 Departure Communication Progress Notes Patient reports was complete resolution of symptoms with medications given in the emergency department. Plan for discharge to home. Patient instructed to contact Dr. Villalobos's office for discussion of tramadol. She is to follow-up with him on July 31 as previously scheduled or sooner if needed. Impression Impression: Primary Impression: Migraine Qualified Codes: G43.009 - Migraine without aura, not intractable, without status migrainosus Disposition: HOME, SELF-CARE Condition: Improved Departure-Patient Inst. Decision time for Depature: 14:22 Referrals: JOCELYNE VILLALOBOS MD NO,LOCAL PHYSICIAN (PCP) Primary Care Physician Patient Instructions: Migraine Headache (DC) Add. Discharge Instructions: All discharge instructions reviewed with patient and/or family. Voiced understanding. Continue usual home medications. Ibuprofen 800 mg by mouth every 8 hours as needed for pain. Tylenol extra strength as directed over-the- counter for pain or headache. Push fluids. Avoid bright lights, loud noises, tablets, computers, televisions, smart phones. Follow-up with Dr. Villalobos as an outpatient for recheck July 31 or sooner if needed. Return to the emergency department for worsened symptoms or any other concerns. JENNIFER MOONEY Jul 06, 2016 13:38
[2016-07-06] MEDS ORDERED: diphenhydrAMINE 25 MG TAB (BENADRYL) PO ONE (13:45)
[2016-07-06 14:27] VITALS: BP 98/69
== END 2016-07-06 14:30 | disposition home or self-care (01) ==
LOC: EDUNIT# 12:56 → ER 12:57
DX: G43.909 Migraine, unspecified, not intractable, without status migrainosus (principal); F17.210 Nicotine dependence, cigarettes, uncomplicated; Z79.899 Other long term (current) drug therapy
CPT/HCPCS: 96372; 99282

== ENCOUNTER 2016-09-27 09:07 | Emergency (ER) | payer MEDICARE, MEDICAID ==
[~2016-09-27] VITALS: Ht 162.6 cm; Wt 59.0 kg
[2016-09-27 09:40] VITALS: BP 124/89
[2016-09-27] MEDS ORDERED: NS IV 1000 ML 1,000 ML IV SCH (09:45)
[2016-09-27] MEDS ORDERED: PROMETHAZINE INJ 25 MG/ML (PHENERGAN) AMP IVP PRN (09:45)
[2016-09-27] MEDS ORDERED: KETOROLAC 30 MG/ML VIAL IVP PRN (09:45)
[2016-09-27] MEDS ORDERED: diphenhydrAMINE 50 MG/ML INJ (BENADRYL) IVP ONE (09:45)
--- NOTE | 2016-09-27 10:52 | ED Headache ---
General Chief Complaint: Head/Cervical Problems Stated Complaint: MIGRAINE Nursing Triage Note: pt reports migraine x 5 days that is not relieved with home medication. Nursing Sepsis Screen: No Definite Risk Source: patient Exam Limitations: no limitations History of Present Illness Time seen by provider: 10:00 Initial Comments This 26-year-old female presents with a migraine headache that she's had for the last 5 days. The patient has taken no medication at home. There's been no associated fever, chill, hematemesis, diarrhea, dysuria, paresthesias or weakness in the extremities, or significant change from her usual migraine headaches. The patient has taken Topamax for her migraines. Her other medication is Cymbalta for depression. Patient's allergies include penicillin and Imitrex. The patient is under the care of Dr. Gaudencio Blandon's in [place]. Allergies and Home Medications Allergies Coded Allergies: sumatriptan (Unverified Allergy, Severe, ANAPHYLAXIS, 09/20/13) Penicillins (Unverified Allergy, Unknown, 09/20/13) sumatriptan succinate (Verified Adverse Reaction, Mild, 04/01/11) Home Medications Alprazolam 1 Mg Tablet, #90 (Reported) Duloxetine HCl 60 Mg Capsule.dr, 60 MG PO, (Reported) Gabapentin 800 Mg Tablet, #90 (Reported) Ibuprofen 600 Mg Tablet, 600 MG PO Q6H PRN for PAIN, (Reported) Omeprazole 20 Mg Capsule.dr, #30 (Reported) Ondansetron 4 Mg Tab.rapdis, 4 MG PO Q4H, #10 Prescribed by: YE CARBALLO on 05/07/161922 Topiramate 100 Mg Tablet, #90 (Reported) Constitutional: No chills, No fever Eyes: Denies Blurred Vision Ears, Nose, Mouth, Throat: denies epistaxis Respiratory: No cough Cardiovascular: No chest pain Gastrointestinal: nausea Genitourinary: No dysuria, No frequency Musculoskeletal: No back pain Skin: No rash Psychiatric/Neurological: Depressed Past Khwgphe-Qseegx-Ajmbtr Hx Patient Social History Alcohol Use: Denies Use Recreational Drug Use: No Smoking Status: Current Everyday Smoker Type Used: Cigarettes Recent Foreign Travel: No Contact w/Someone Who Travel: No Recent Infectious Disease Expo: No Recent Hopitalizations: No Immunizations Up To Date Tetanus Booster (TDap): Unknown PED Vaccines UTD: Yes Date of Influenza Vaccine: Jan 08, 2013 Seasonal Allergies Seasonal Allergies: No Surgeries HX Surgeries: Yes (SINUS, EXPL LAP, EAR TUBES, perineal tear repair) Surgeries: Abdominal, Appendectomy, Ear Surgery, Eye Surgery Respiratory Hx Respiratory Disorders: No Cardiovascular Hx Cardiac Disorders: No Neurological Hx Neurological Disorders: Yes Neurological Disorders: Headaches /Migraines 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 System Hx 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 Disorders: No Genitourinary Hx Genitourinary Disorders: No Gastrointestinal Hx Gastrointestinal Disorders: Yes Gastrointestinal Disorders: Gastroesophageal Reflux Musculoskeletal Hx Musculoskeletal Disorders: No Endocrine Hx Endocrine Disorders: No HEENT HX ENT Disorders: No Cancer Hx Cancer: No Psychosocial Hx Psychiatric Problems: Yes Behavioral Health Disorders: Sleep Difficulties, Anxiety, PTSD, Depression Integumentary HX Skin/Integumentary Disorder: No Blood Transfusions Hx Blood Disorders: No Adverse Reaction to a Blood Tr: No Reviewed Nursing Assessment Reviewed/Agree w Nursing PMH: Yes Family Medical History Significant Family History: No Pertinent Family Hx Family Medial History: FH: bipolar disorder 19 FATHER 19 MOTHER Physical Exam Vital Signs Vital Sign - Last 12Hours 09/27/16 09:24 Temp 97.8 Pulse 87 Resp 16 B/P (MAP) 132/79 Capillary Refill : Less Than 3 Seconds General Appearance: WD/WN, mild distress HEENT: normal ENT inspection Neck: non-tender, full range of motion, supple, normal inspection Cardiovascular: normal peripheral pulses, regular rate, rhythm Respiratory: chest non-tender, lungs clear Gastrointestinal: normal bowel sounds, soft Extremities: normal range of motion, normal inspection Crainal Nerves: normal hearing, normal speech Coordination/Gait: normal gait Motor/Sensory: no motor deficit, no sensory deficit Skin: normal color, warm/dry Progress/Results/Core Measures Results/Orders My Orders Orders - FADI DAVE MD Ketorolac Injection (Toradol Injection) (09/27/16 09:45) Promethazine Injection (Phenergan Injec (09/27/16 09:45) Ns Iv 1000 Ml (Sodium Chloride 0.9%) (09/27/16 09:45) Diphenhydramine Injection (Benadryl Inje (09/27/16 09:45) Medications Given in ED Current Medications Medications Dose Ordered Sig/Janine Route Start Time Stop Time Status Last Admin Dose Admin Diphenhydramine HCl 25 mg ONCE ONCE IVP 09/27/16 09:45 09/27/16 09:46 DC 09/27/16 10:05 25 MG Ketorolac Tromethamine 30 mg Q6H PRN IVP 09/27/16 09:45 10/02/16 09:44 09/27/16 10:05 30 MG Promethazine HCl 25 mg Q4H PRN IVP 09/27/16 09:45 09/27/16 10:05 25 MG Vital Signs/I&O Vital Sign - Last 12Hours 09/27/16 09:24 Temp 97.8 Pulse 87 Resp 16 B/P (MAP) 132/79 Blood Pressure Mean: 96 Progress Note : Time: 10:52 Progress Note The patient was treated with Phenergan, Benadryl, and Toradol IV. The patient was significantly improved and was sleeping quietly in the emergency department following administration of the normal saline and aforementioned medications. Patient stated that she was ready to go home. I dispensed Zofran and Toradol for her at home for future migraines as needed. Departure Impression Impression: Primary Impression: Migraine Qualified Codes: G43.909 - Migraine, unspecified, not intractable, without status migrainosus Disposition: HOME, SELF-CARE Condition: Improved Departure-Patient Inst. Decision time for Depature: 10:55 Referrals: GAUDENCIO RAJAN MD (PCP/Family) Primary Care Physician Patient Instructions: Migraine Headache (DC) Add. Discharge Instructions: Zofran and Toradol as needed for nausea and migraine." Follow-up with her primary care physician. Return if any problems or questions. All discharge instructions reviewed with patient and/or family. Voiced understanding. FADI DAVE MD Sep 27, 2016 10:52
== END 2016-09-27 09:40 | disposition home or self-care (01) ==
LOC: EDUNIT# 09:07 → ER 09:09
DX: G43.909 Migraine, unspecified, not intractable, without status migrainosus (principal); K21.9 Gastro-esophageal reflux disease without esophagitis; F43.10 Post-traumatic stress disorder, unspecified; F41.9 Anxiety disorder, unspecified; F32.9 Major depressive disorder, single episode, unspecified; F17.210 Nicotine dependence, cigarettes, uncomplicated; Z90.49 Acquired absence of other specified parts of digestive tract
CPT/HCPCS: 96361; 96374; 96375; 99282

== ENCOUNTER 2016-11-11 19:35 | Emergency (ER) | payer MEDICARE, MEDICAID ==
[~2016-11-11] VITALS: Ht 162.6 cm; Wt 64.9 kg
[2016-11-11 19:57] LABS: KETONES,URINE 1+ (NEGATIVE); LEUKOCYTE ESTERASE ,URINE 1+ (NEGATIVE); NITRITE,URINE NEGATIVE (NEGATIVE); PH,URINE 5 (5-9); PROTEIN,URINE 2+ (NEGATIVE); UROBILINOGEN,URINE 1 MG/DL (NORMAL)
[2016-11-11 20:10] LABS: BILIRUBIN,URINE 1+ (NEGATIVE); CALCIUM OXALATE CRYSTALS,UR MODERATE /LPF; SQUAMOUS EPITHELIAL CELL,UR >50 /HPF; YEAST,URINE FEW /HPF
[2016-11-11] MEDS ORDERED: RX-NITROFURANTOIN 100 MG (MACROBID) CAP PPK#2 PO STA (20:17)
[2016-11-11] MEDS ORDERED: PHEN-640 PO (20:24)
[2016-11-11] MEDS ORDERED: NITR-65 PO (20:24)
--- NOTE | 2016-11-11 20:24 | ED GU-Female ---
General Chief Complaint: -Female Stated Complaint: POSS UTI Nursing Triage Note: PT TO ED 7 W/ C/O PAIN ET BURNING UPON URINATION Nursing Sepsis Screen: No Definite Risk Source: patient History of Present Illness Time seen by provider: 19:44 Initial Comments PT STATES SHE THINKS SHE HAS A UTI C/O BURNING ON URINATION, AND PAIN IN GENITAL AREA X 1 WEEK C/O LOWER ABDOMINAL AND LOWER BACK PAIN C/O NAUSEA, NO VOMITING NO DIARRHEA NO FEVER SYMPTOMS NO DIFFERENT TODAY HAS NOT TAKEN ANYTHING FOR PAIN HAS NOT SOUGHT CARE UNTIL TODAY HAS HAD SAME IN THE PAST LMP--UNKNOWN--NOT FOR A LONG TIME. WAS ON DEPO-PROVERA, AND LAST SHOT WAS 2016--MISSED SHOT IN AUGUST. THEN HAD IUD PLACED 10/10/16. PT WITH MULTIPLE VISITS--VARIOUS COMPLAINTS, USUALLY PAIN COMPLAINTS PCP: FT. YVES LARSON Allergies and Home Medications Allergies Coded Allergies: sumatriptan (Unverified Allergy, Severe, ANAPHYLAXIS, 09/20/13) Penicillins (Unverified Allergy, Unknown, 09/20/13) sumatriptan succinate (Verified Adverse Reaction, Mild, 04/01/11) Home Medications Alprazolam 1 Mg Tablet, #90 (Reported) Duloxetine HCl 60 Mg Capsule.dr, 60 MG PO, (Reported) Gabapentin 800 Mg Tablet, #90 (Reported) Ibuprofen 600 Mg Tablet, 600 MG PO Q6H PRN for PAIN, (Reported) Nitrofurantoin Monohyd/M-Cryst 100 Mg Capsule, 100 MG PO BID, #20 Prescribed by: EY CARBALLO on 11/11/162023 Omeprazole 20 Mg Capsule., #30 (Reported) Ondansetron 4 Mg Tab.rapdis, 4 MG PO Q4H, #10 Prescribed by: YE CARBALLO on 05/07/16 192 Phenazopyridine HCl 200 Mg Tablet, 1 TAB PO TID, #15 Prescribed by: YE CARBALLO on 11/11/162023 Topiramate 100 Mg Tablet, #90 (Reported) Constitutional: no symptoms reported Respiratory: no symptoms reported Cardiovascular: no symptoms reported Gastrointestinal: see HPI, abdominal pain, nausea, No vomiting Genitourinary: see HPI, burning, dysuria, frequency, flank pain, denies hematuria, denies incontinence, pain, urgency : No Musculoskeletal: see HPI, back pain Skin: no symptoms reported Psychiatric/Neurological: No Symptoms Reported Past Jsmpumr-Ehjgmy-Wexdhs Hx Patient Social History Alcohol Use: Denies Use Recreational Drug Use: No Smoking Status: Current Everyday Smoker (1 PPD) Type Used: Cigarettes Recent Foreign Travel: No Contact w/Someone Who Travel: No Recent Infectious Disease Expo: No Recent Hopitalizations: No Physical Abuse: No Sexual Abuse: No Mistreated: No Fear: No Immunizations Up To Date Tetanus Booster (TDap): Unknown PED Vaccines UTD: Yes Date of Influenza Vaccine: Jan 08, 2013 Seasonal Allergies Seasonal Allergies: No Surgeries History of Surgeries: Yes (SINUS, EXPL LAP, EAR TUBES, perineal tear repair) Surgeries: Abdominal, Appendectomy, Ear Surgery, Eye Surgery Respiratory History of Respiratory Disorde: No Cardiovascular History of Cardiac Disorders: No Neurological History of Neurological Disord: Yes Neurological Disorders: Headaches /Migraines 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 System Hx 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 Disorders: No Female 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 Disorders: Denies Genitourinary History of Genitourinary Disor: Yes Genitourinary Disorders: Bladder Infection Gastrointestinal History of Gastrointestinal Di: Yes Gastrointestinal Disorders: Gastroesophageal Reflux Musculoskeletal History of Musculoskeletal Dis: No Endocrine History of Endocrine Disorders: No Cancer History of Cancer: No Psychosocial History of Psychiatric Problem: Yes Behavioral Health Disorders: Sleep Difficulties, Anxiety, PTSD, Depression Suicide Risk Score: 0 Integumentary History of Skin or Integumenta: No Blood Transfusions History of Blood Disorders: No Adverse Reaction to a Blood Tr: No Family Medical History Significant Family History: No Pertinent Family Hx Family Medial History: FH: bipolar disorder 19 FATHER 19 MOTHER Physical Exam Vital Signs Vital Sign - Last 12Hours 11/11/16 19:40 Temp 97.2 Pulse 106 Resp 20 B/P (MAP) 108/82 Pulse Ox 98 O2 Delivery Room Air Capillary Refill : Less Than 3 Seconds General Appearance: WD/WN, no apparent distress, other (FILTHY, FEET NEARLY BLACK WITH DIRT) Cardiovascular: regular rate, rhythm, no murmur Respiratory: normal breath sounds Gastrointestinal: normal bowel sounds, soft, no organomegaly, no pulsatile mass , No distended, No guarding, No rebound, tenderness (MILD SUPRAPUBIC TENDERNESS) Back: other (MILD DIFFUSE LOWER BACK TENDERNESS) Extremities: normal inspection, normal capillary refill 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: major gifts director II-XII nml as tested, no motor/sensory deficits, alert, normal mood/affect, oriented x 3 Skin: normal color, warm/dry, No rash Progress/Results/Core Measures Results/Orders Lab Results Laboratory Tests Test 11/11/16 19:42 Range/Units Urine Color YELLOW Urine Clarity SLIGHTLY CLOUDY Urine pH 5 5-9 Urine Specific [place] 1.030 H 1.016-1.022 Urine Protein 2+ H NEGATIVE Urine Glucose (UA) NEGATIVE NEGATIVE Urine Ketones 1+ H NEGATIVE Urine Nitrite NEGATIVE NEGATIVE Urine Bilirubin 1+ H NEGATIVE Urine Urobilinogen 1 NORMAL MG/DL Urine Leukocyte Esterase 1+ H NEGATIVE Urine RBC (Auto) 4+ H NEGATIVE Urine RBC 2-5 H /HPF Urine WBC 2-5 /HPF Urine Squamous Epithelial Cells >50 H /HPF Urine Crystals PRESENT H /LPF Urine Calcium Oxalate Crystals MODERATE H /LPF Urine Bacteria NEGATIVE /HPF Urine Casts NONE /LPF Urine Mucus NEGATIVE /LPF Urine Yeast FEW H /HPF Urine Culture Indicated YES Urine Opiates Screen NEGATIVE NEGATIVE Urine Oxycodone Screen NEGATIVE NEGATIVE Urine Methadone Screen NEGATIVE NEGATIVE Urine Propoxyphene Screen NEGATIVE NEGATIVE Urine Barbiturates Screen POSITIVE H NEGATIVE Ur Tricyclic Antidepressants Screen NEGATIVE NEGATIVE Urine Phencyclidine Screen NEGATIVE NEGATIVE Urine Amphetamines Screen NEGATIVE NEGATIVE Urine Methamphetamines Screen NEGATIVE NEGATIVE Urine Benzodiazepines Screen NEGATIVE NEGATIVE Urine Cocaine Screen NEGATIVE NEGATIVE Urine Cannabinoids Screen NEGATIVE NEGATIVE My Orders Orders - YE CARBALLO DO Drug Screen Stat (Urine) (11/11/16 19:44) Ua Culture If Indicated (11/11/16 19:44) Urine Bedside (11/11/16 19:44) Urine Culture (11/11/16 19:42) Rx-Nitrofurantoin [place] (Rx-Macrobid) (11/11/16 20:17) Phenazopyridine Tablet (Pyridium Tablet) (11/11/16 20:30) Medications Given in ED Current Medications Medications Dose Ordered Sig/Janine Route Start Time Stop Time Status Last Admin Dose Admin Phenazopyridine HCl 200 mg ONCE ONCE PO 11/11/16 20:30 11/11/16 20:31 DC 11/11/16 20:27 200 MG Vital Signs/I&O Vital Sign - Last 12Hours 11/11/16 11/11/16 19:40 20:26 Temp 97.2 Pulse 106 0 Resp 20 0 B/P (MAP) 108/82 Pulse Ox 98 0 O2 Delivery Room Air Blood Pressure Mean: 91 Point of Care Testing Urine -Bedside: Negative Departure Impression Impression: Primary Impression: Urinary tract infection Disposition: 01 HOME, SELF-CARE Condition: Stable Departure-Patient Inst. Referrals: GAUDENCIO RAJAN MD (PCP/Family) Primary Care Physician Patient Instructions: Urinary Tract Infection, Adult (DC) Add. Discharge Instructions: TYLENOL AND MOTRIN NEEDED FOR PAIN LOTS OF CLEAR LIQUIDS--NO COFFEE, POP OR TEA FOLLOW UP WITH YOUR DR IN 3-4 DAYS FOR FURTHER CARE All discharge instructions reviewed with patient and/or family. Voiced understanding. Scripts Phenazopyridine HCl (Pyridium) 200 Mg Tablet 1 TAB PO TID for BLADDER DISCOMFORT, #15 TAB Prov: YE CARBALLO DO 11/11/16 Nitrofurantoin Monohyd/M-Cryst (Macrobid 100 mg Capsule) 100 Mg Capsule 100 MG PO BID, #20 CAP Prov: YE CARBALLO DO 11/11/16 YE CARBALLO DO Nov 11, 2016 20:24
[2016-11-11 20:26] VITALS: BP 0/0
[2016-11-11] MEDS ORDERED: PHENAZOPYRIDINE 100 MG (PYRIDIUM) TABLET PO ONE (20:30)
== END 2016-11-11 20:26 | disposition home or self-care (01) ==
LOC: EDUNIT# 19:35 → ER 19:36
DX: N39.0 Urinary tract infection, site not specified (principal); G43.909 Migraine, unspecified, not intractable, without status migrainosus; K21.9 Gastro-esophageal reflux disease without esophagitis; F41.9 Anxiety disorder, unspecified; F32.9 Major depressive disorder, single episode, unspecified; F43.10 Post-traumatic stress disorder, unspecified; F17.210 Nicotine dependence, cigarettes, uncomplicated; Z87.448 Personal history of other diseases of urinary system; Z90.49 Acquired absence of other specified parts of digestive tract
CPT/HCPCS: 80306; 81000; 84703; 87088; 99283

== ENCOUNTER 2017-01-09 17:22 | Emergency (ER) | payer MEDICARE, MEDICAID ==
[~2017-01-09] VITALS: Ht 162.6 cm; Wt 63.5 kg
[~2017-01-09 17:22] MED LIST changes: +PHEN-640 PO
--- OUTSIDE RECORDS SUMMARY | 2017-01-09 17:29 | XMS REPORT | Continuity of Care Document ---
Author Author [employer] Organization [facility] Address Unknown Phone Unavailable Care Team Providers Care Dec[employer]ator [employer] Name Role Phone [employer] Unavailable Unavailable Problems Medications Allergies, Adverse Reactions, Alerts Immunizations Results Vital Signs Encounters Location Location Details Encounter Type Encounter Number Reason For Visit Attending Provider ADM Date DC Date Status Source OUTPATIENT [id number] LASHA RAMÍREZ 05/13/20162016 Active [facility] O LASHA RAMÍREZ 12/05/2016 12/05/2016 Active [facility] Procedures Plan of Care Social History Assessment and Plan Family History Value Date Source Advance Directives Order Name Results Value Date Source
--- OUTSIDE RECORDS SUMMARY | 2017-01-09 17:30 | XMS REPORT | Clinical Summary ---
Author Author [facility] Organization [facility] Address Unknown Phone Unavailable Care Team Providers Care Veterinary Technician Name Role Phone PCP Unavailable Source Comments Some departments are not documenting in the electronic medical record. If you do not see the information that you expected, contact Release of Information in the Health Information Management department at [phone] for further assistance in locating additional records.[facility] Allergies Active Allergy Reactions Severity Noted Date Comments Sumatriptan Succinate ANAPHYLAXIS High 05/02/2016 Penicillins HIVES 12/30/2012 Sumatriptan-Naproxen SWOLLEN TONGUE 12/30/2012 Swollen throat Gabapentin SEE COMMENTS Low 12/05/2016 Numbness,weakness Current Medications Prescription Sig. Disp. Refills Start [...] mg/mL as directed every 90 injection days. omeprazole(+) (PRILOSEC) Take 20 mg by mouth daily Active 10 mg capsule before breakfast. TOPIRAMATE (TOPAMAX PO) Take 300 mg by mouth. Active ACETAMINOPHEN-CAFFEINE Take by mouth. Active POIndications: 50-325-40 Indications: 50-325-40 mg mg as directed as directed hydrOXYzine (ATARAX) 10 Take 1 Tab by mouth twice 180 Tab 3 08/02/19 Active mg tabletIndications: daily. 17 Interstitial cystitis hyoscyamine sulfate Place 1 Tab under tongue 30 Tab 3 05/25/20 Active (LEVSIN/SL) 0.125 mg every 4 hours as needed 17 sublingual for Cramps. Max 1.5 mg/ tabletIndications: day Interstitial cystitis amitriptyline (ELAVIL) 25 Take 1 tablet by mouth at 90 tablet 3 Active mg tabletIndications: bedtime daily. Increase 17 Interstitial cystitis to 50mg each night after 1 week. pentosan polysulfate Take 1 capsule by mouth 270 capsule 3 12/06/19 Active sodium (ELMIRON) 100 mg three times daily. Take 17 capsuleIndications: w/ water 1 hr before or 2 Interstitial cystitis hrs after meals Active Problems Problem Noted Date Interstitial cystitis 05/21/2016 Overview: 05/21/16 OPERATIVE PROCEDURE: Cystoscopy, panendoscopy, bladder wash cytology, bladder hydrodistention under anesthesia, and pelvic examination. 08/01/16 PVR 147cc L ast Assessment & Plan: Manage constipation Avoid dietary irritants Timed voiding Atarax 10mg BID Amitriptyline 25mg QHS Levsin ~ PRN FU 4 months Hematuria 05/02/2016 Overview: CT Abd/pel with and without contrast 05/13/16 IMPRESSION 1. No hydronephrosis, nephrolithiasis, enhancing renal mass, or urothelial filling defect. 2. No abdominopelvic inflammatory mass, lymphadenopathy, or ascites. 05/21/16 OPERATIVE PROCEDURE: Cystoscopy, panendoscopy, bladder wash cytology, bladder hydrodistention under anesthesia, and pelvic examination. L ast Assessment & Plan: No further evaluation at this time Dysuria 05/02/2016 Last Assessment & Plan: Urine C&S ~ no antibiotics Request urine culture from ER recently ~ request sent to [place] Continue Atarax Continue Amitriptyline Continue Levsin PRN Continue timed and double void Continue vitamin cocktail Recommend PFPT ~ list and order given Avoid dietary irritants ~ soda Trial of [place] ~ reviewed side effects and dosing FU 6 months Migraine without aura, intractable 12/30/2012 Chronic daily headache 12/30/2012 Obesity 12/30/2012 Anxiety and depression 12/30/2012 Tobacco use 12/30/2012 Encounters Date Type Specialty Care Team Description 12/05/2016 Office Visit Urology Guillermo Mae MD Interstitial cystitis (Primary Dx);Dysuria 12/05/2016 Office Visit Neurology Jeff Pool MD Migraine without aura, intractable (Primary Dx);Interstitial cystitis 12/03/2016 Telephone Neurology Jeff Pool MD Pre-Visit Planning (Dr. Pool 12/05/16) from Last 3 Months Family History Medical History Relation Name Comments Diabetes Other Hypertension Other Stroke Other Urologic Problems Other Stroke Paternal Grandfather Stroke Paternal Grandmother Relation Name Status Comments Other Paternal Grandfather Paternal Grandmother Social History Tobacco Use Types Packs/Day Years Used Date Current Every Day Smoker Cigarettes 0.25 4 Smokeless Tobacco: Never Used Tobacco Cessation: Ready to Quit: No Alcohol Use Drinks/Week oz/Week Comments No Sex Assigned at Date Recorded Not on file Last Filed Vital Signs Vital Sign Reading Time Taken Blood Pressure 98/66 12/05/2016 2:05 PM CDT Pulse 95 12/05/2016 2:05 PM CDT Temperature 36.9 C (98.4 F) 05/21/2016 3:00 PM CDT Respiratory Rate 18 03/25/2013 9:18 AM INTERVENTION MANAGER Oxygen Saturation 100% 05/21/2016 3:00 PM CDT Inhaled Oxygen - - Concentration Weight 62.2 kg (137 lb 3.2 oz) 12/05/2016 2:05 PM CDT Height 162.6 cm (5' 4") 12/05/2016 2:05 PM CDT Body Mass Index 23.55 12/05/2016 2:05 PM CDT Plan of Treatment Health Maintenance Due Date Last Done Comments PHYSICAL (COMPREHENSIVE) 06/19/1999 EXAM HPV VACCINES (1 of 3 - 06/19/2003 Female 3 Dose Series) PERTUSSIS VACCINE 06/19/2003 TETANUS VACCINE 2009 CERVICAL CANCER SCREENING 2013 INFLUENZA VACCINE 10/08/2016 Results Not on filefrom Last 3 Months
--- OUTSIDE RECORDS SUMMARY | 2017-01-09 17:30 | XMS REPORT | Encounter Summary ---
Author Author [facility] Address Unknown Phone Unavailable Care Team Providers Care Field Artillery Radar Operator Name Role Phone PCP Unavailable Reason for Referral * Consult, Test & Treat (Routine) Status Reason Specialty Diagnoses / Referred By Referred To Procedures Contact Contact New Request Specialty Physical Therapy Diagnoses Yuan Coles Services Interstitial PA-C Required cystitis [address] [place] [address] Reason for Visit * Reason Comments Blood in urine Encounter Details Date Type Department Care Team Description 12/05/2016 Office Visit [facility] Guillermo Mae MD Interstitial cystitis Physicians - Urology [address] [facility] (Primary Dx);Dysuria 2ND FLOOR POD A MS [address] [facility] [place] [address] OFFICE BLDG [phone] [place] [address] Social History Tobacco Use Types Packs/Day Years Used Date Current Every Day Smoker Cigarettes 0.25 4 Smokeless Tobacco: Never Used Alcohol Use Drinks/Week oz/Week Comments No Sex Assigned at Date Recorded Not on file as of this encounter Last Filed Vital Signs Vital Sign Reading Time Taken Blood Pressure 98/66 12/05/2016 2:05 PM CDT Pulse 95 12/05/2016 2:05 PM CDT Temperature - - Respiratory Rate - - Oxygen Saturation - - Inhaled Oxygen - - Concentration Weight 62.2 kg (137 lb 3.2 oz) 12/05/2016 2:05 PM CDT Height 162.6 cm (5' 4") 12/05/2016 2:05 PM CDT Body Mass Index 23.55 12/05/2016 2:05 PM CDT in this encounter Instructions * Patient Instructions - Yuan Coles PA-C - 12/05/2016 1:00 PM CDT Pentosan Polysulfate Sodium Oral capsule What is this medicine? PENTOSAN (PEN toe saunders) is used to treat the bladder pain or discomfort caused by interstitial cystitis. This is a condition that causes inflammation of parts of the kidney. This medicine may be used for other purposes; ask your health care provider or pharmacist if you have questions. What should I tell my health care provider before I take this medicine? They need to know if you have any of these conditions: kidney or liver disease an unusual or allergic reaction to pentosan, other medicines, foods, dyes, or preservatives or trying to get breast-feeding How should I use this medicine? Take this medicine by mouth with a glass of water. Follow the directions on the prescription label. Take this medicine on an empty stomach, at least 1 hour before or 2 hours after food. Do not take with food. Take your doses at regular intervals. Do not take your medicine more often than directed. Talk to your cloth mercerizer operator regarding the use of this medicine in children. Special care may be needed. Overdosage: If you think you have taken too much of this medicine contact a poison control center or emergency room at once. NOTE: This medicine is only for you. Do not share this medicine with others. What if I miss a dose? If you miss a dose, take it as soon as you can. If it is almost time for your next dose, take only that dose. Do not take double or extra doses. What may interact with this medicine? Do not take this medicine with any of the following medications: agents that prevent or dissolve blood clots like heparin or warfarin aspirin, especially in higher doses mifepristone This medicine may also interact with the following medications: clopidogrel dipyridamole NSAIDs, medicines for pain and inflammation, like ibuprofen or naproxen ticlopidine This list may not describe all possible interactions. Give your health care provider a list of all the medicines, herbs, non-prescription drugs, or dietary supplements you use. Also tell them if you smoke, drink alcohol, or use illegal drugs. Some items may interact with your medicine. What should I watch for while using this medicine? Tell your doctor or health care taker that you are taking this medicine if you are going to have a medical procedure or surgery. What side effects may I notice from receiving this medicine? Side effects that you should report to your doctor or health care taker as soon as possible: allergic reactions like skin rash, itching or hives, swelling of the face, lips, or tongue diarrhea rash signs and symptoms of bleeding such as bloody or black, tarry stools; red or dark-brown urine; spitting up blood or brown material that looks like coffee grounds; red spots on the skin; unusual bruising or bleeding from the eye, gums , or nose stomach pain Side effects that usually do not require medical attention (report to your doctor or health care taker if they continue or are bothersome): hair loss headache nausea This list may not describe all possible side effects. Call your doctor for medical advice about side effects. You may report side effects to FDA at 0-470- FDA-9268. Where should I keep my medicine? Keep out of the reach of children. Store at room temperature between 15 and 30 degrees C (59 and 86 degrees F). Throw away any unused medicine after the expiration date. NOTE:This sheet is a summary. It may not cover all possible information. If you have questions about this medicine, talk to your doctor, pharmacist, or health care provider. Copyright 2017 [employer] in this encounter Progress Notes * Clara Castillo RN - 12/05/2016 1:00 PM CDT pvr 150ml * Guillermo Mae MD - 12/05/2016 1:00 PM CDT Formatting of this note may be different from the original. Date of Service: 12/05/2016 Subjective: Meli Barros is a 26 y.o. female, here for 4 month follow up Chief Complaint Patient presents with Blood in urine History of Present Illness Meli Barros is a 26 y.o. Female, initial evaluation 05/02/16 presented with a history several UTIs Often feels like she has one but when tested, will not have a UTI. She says that it is painful when she urinates and often does not feel like she can empty her bladder completely. She has a lot of lower left abdominal pain that does not resolve. Often feels like her bladder is full and when she urinates only a small amount comes out. All of her symptoms started at once and were abrupt in onset. She treats her urinary symptoms with occasional prescription antibiotics. Sometimes takes OTC Azo - which helps with the burning but not with the abdominal pain. Has a bowel movement every day 05/21/16 OPERATIVE PROCEDURE: Cystoscopy, panendoscopy, bladder wash cytology, bladder hydrodistention under anesthesia, and pelvic examination. Hydrodistention of bladder was then performed times 3 with irrigation of approximately 60 cm above the symphysis pubis. The maximum capacities on the 3 distentions were 700, 800, 750 mL respectively. There was hematuria with each of the distention and reinspection of bladder mucosa revealed diffuse petechial hemorrhages scattered throughout the bladder along with some hypervascularity. Photographic images were obtained. These findings are consistent with a diagnosis of interstitial cystitis. Last office visit, 08/01/16, she reported minimal change in her symptoms after procedure. She was concerned about a possible UTI at that time and UA negative. Presents today for follow-up, she reports was seen in the emergency room [facility] for urinary tract infection in October with increased urgency frequency and with antibiotics her symptoms resolved. She denies hematuria, fever chills or imaging done at that time. She continues to have pelvic pain and chronic dysuria. She is currently taking Atarax twice daily, amitriptyline nightly, Levsin as needed. She reports a good stream, voiding every 4 hours. She reports increased difficulty with urination at night, denies straining to void during the day. She is not currently sexually active however when she is sexually active it is painful. Intake-water 8, soda 3 She denies hematuria, urge, incontinence, fever/chills. 12/05/16 pvr 150ml 08/01/16 PVR 147cc Review of Systems Constitutional: Negative for activity change, appetite change, chills, diaphoresis, fatigue, fever and unexpected weight change. HENT: Negative for congestion, hearing loss, mouth sores and sinus pressure. Eyes: Negative for visual disturbance. Respiratory: Negative for apnea, cough, chest tightness and shortness of breath. Cardiovascular: Negative for chest pain, palpitations and leg swelling. Gastrointestinal: Positive for abdominal pain. Negative for anal bleeding, blood in stool, constipation, diarrhea, nausea, rectal pain and vomiting. Genitourinary: Positive for difficulty urinating, dysuria and urgency. See HPI Musculoskeletal: Negative for arthralgias, back pain, gait problem and myalgias. Skin: Negative for rash and wound. Neurological: Positive for light-headedness and headaches. Negative for dizziness, tremors, seizures, syncope, weakness and numbness. Hematological: Negative for adenopathy. Does not bruise/bleed easily. Psychiatric/Behavioral: Positive for dysphoric mood. Negative for decreased concentration. The patient is nervous/anxious. Objective: ACETAMINOPHEN-CAFFEINE PO Take by mouth. Indications: 50-325-40 mg as directed ALPRAZolam (XANAX) 0.25 mg tablet Take 1 mg by mouth every 8 hours as needed. One-two tabs every 8 hrs if needed amitriptyline (ELAVIL) 25 mg tablet Take 1 tablet by mouth at bedtime daily. Increase to 50mg each night after [address] (CYMBALTA) 60 mg capsule Take 60 mg by mouth daily. hydrOXYzine (ATARAX) 10 mg tablet Take 1 Tab by mouth twice daily. hyoscyamine sulfate (LEVSIN/SL) 0.[address] 1 Tab under tongue every 4 hours as needed for Cramps. Max 1.5 mg/ day medroxyPROGESTERone (DEPO-PROVERA) 150 mg/mL injection Inject 150 mg to area (s) as directed every 90 days. omeprazole(+) (PRILOSEC) 10 mg capsule Take 20 mg by mouth daily before breakfast. ondansetron (ZOFRAN) 4 mg tablet Take 4 mg by mouth daily as needed. Sublingual daily pentosan polysulfate sodium (ELMIRON) 100 mg capsule Take 1 capsule by mouth three times daily. Take w/ water 1 hr before or 2 hrs after meals TOPIRAMATE (TOPAMAX PO) Take 300 mg by mouth. Vitals: 12/05/16 1405 BP: 98/66 Pulse: 95 Weight: 62.2 kg (137 lb 3.2 oz) Height: 162.6 cm (64") Body mass index is 23.55 kg/(m^2). Physical Exam Constitutional: She is oriented to person, place, and time. She appears well- developed and well-nourished. HENT: Head: Normocephalic. Eyes: Conjunctivae are normal. Neck: Normal range of motion. Cardiovascular: Normal rate. Pulmonary/Chest: Effort normal. Abdominal: Soft. Suprapubic discomfort Musculoskeletal: Normal range of motion. Neurological: She is alert and oriented to person, place, and time. Skin: Skin is warm and dry. Psychiatric: She has a normal mood and affect. Recent Available labs: Urine Lab Results Component Value Date/Time UCOLOR yellow 08/01/2016 TURBID cloudy 08/01/2016 USPGR 1.016 05/21/2016 12:15 PM No results found for: UNIT, ULEU, SULFSALAC, ICTOTEST, RANJANA, UWBC, URBC, UCOMMENT No results found for: CULTURE No outside records for review Recent Imaging: CT Abd/pel with and without contrast 05/13/16 IMPRESSION 1. No hydronephrosis, nephrolithiasis, enhancing renal mass, or urothelial filling defect. 2. No abdominopelvic inflammatory mass, lymphadenopathy, or ascites. Assessment and Plan: Problem Dysuria Dysuria Urine C&S ~ no antibiotics Request urine culture from ER recently ~ request sent to [place] Continue Atarax Continue Amitriptyline Continue Levsin PRN Continue timed and double void Continue vitamin cocktail Recommend PFPT ~ list and order given Avoid dietary irritants ~ soda Trial of Elmiron ~ reviewed side effects and dosing FU 6 months Orders Placed This Encounter CULTURE-URINE W/SENSITIVITY (Clinic Collect) AMB REFERRAL TO PHYSICAL THERAPY pentosan polysulfate sodium (ELMIRON) 100 mg capsule Yuan Coles PA-C Urology Dr Mae also met with patient and determined plan of care Will send letter to PMD - R Bharat Simental STAFF NOTE History and examination reviewed and wadsworth elements confirmed. Discussed in detail with the patient and questions answered. I personally saw and evaluated the patient and determined the plan of care. Guillermo Mae MD, MPH ATTESTATION I personally interviewed and examined the patient. I have reviewed the history , physical, impression and plan outlined by the Physician Block Setter [place]. The patient presents with (HPI) of interstitial cystitis with associated symptoms as outlined, On examination there is interstitial cystitis with associated bladder symptoms, My impression is interstitial cystitis with urinary urgency and frequency, My plan is as outlined. Continue to work on diet modification to avoid triggers , and medications as described with trial of Elmiron. Staff name: Guillermo Mae MD Date: 12/09/2016 ==== Reviewed urine C&S from ER records [facility] in this encounter Miscellaneous Notes * Assessment & Plan Note - Yuan Coles PA-C - 12/05/2016 2:43 PM CDT Associated Problem(s): Dysuria Urine C&S ~ no antibiotics Request urine culture from ER recently ~ request sent to [place] Continue Atarax Continue Amitriptyline Continue Levsin PRN Continue timed and double void Continue vitamin cocktail Recommend PFPT ~ list and order given Avoid dietary irritants ~ soda Trial of Elmiron ~ reviewed side effects and dosing FU 6 months in this encounter Plan of Treatment Name Priority Associated Diagnoses Order Schedule CULTURE-URINE W/SENSITIVITY Routine Interstitial cystitis Expected: Dysuria (Approximate), Expires: 12/05/2017 Name Priority Associated Diagnoses Order Schedule AMB REFERRAL TO PHYSICAL THERAPY Routine Interstitial cystitis Ordered: 12/05/2016 as of this encounter Visit Diagnoses Diagnosis Interstitial cystitis - Primary Chronic interstitial cystitis Dysuria in this encounter
--- OUTSIDE RECORDS SUMMARY | 2017-01-09 17:30 | XMS REPORT | Encounter Summary ---
Author Author [facility] Organization [facility] Address Unknown Phone Unavailable Care Team Providers Care Behavior Therapist Name Role Phone PCP Unavailable Reason for Visit * Reason Comments New Patient Migraine Encounter Details Date Type Department Care Team Description 12/05/2016 Office Visit [facility] Jeff Pool MD Migraine without aura, Physicians - Neurology [address] [facility] intractable (Primary [facility] [place] [address] Dx);Interstitial cystitis [address] [facility] [address] Social History Tobacco Use Types Packs/Day Years Used Date Current Every Day Smoker Cigarettes 0.25 4 Smokeless Tobacco: Never Used Alcohol Use Drinks/Week oz/Week Comments No Sex Assigned at Date Recorded Not on file as of this encounter Last Filed Vital Signs Vital Sign Reading Time Taken Blood Pressure 100/70 12/05/2016 9:46 AM CDT Pulse 77 12/05/2016 9:46 AM CDT Temperature - - Respiratory Rate - - Oxygen Saturation - - Inhaled Oxygen - - Concentration Weight 61.9 kg (136 lb 8 oz) 12/05/2016 9:46 AM CDT Height 162.6 cm (5' 4") 12/05/2016 9:46 AM CDT Body Mass Index 23.43 12/05/2016 9:46 AM CDT in this encounter Instructions * Patient Instructions - Jeff Pool MD - 12/05/2016 9:30 AM CDT We will start amitriptyline 25mg each night. Increase to 50mg in 1 week. Continue topiramate. For strategies for controlling your headaches, consider looking at www.headachereliefguide.com We will see you back in 3 months. in this encounter Progress Notes * Michael Dunn MD - 12/05/2016 9:30 AM CDT I have personally interviewed and examined Meli Barros and reviewed the history, examination, impression, and plan of care as outlined by Dr.Benjamin Yrn MD. I personally participated in patient counseling and coordination of care. I agree with the assessment and plan as documented by Dr. Jeff Pool MD. * Jeff Pool MD - 12/05/2016 9:30 AM CDT Formatting of this note may be different from the original. Date of Service: 12/05/2016 Subjective: Meli Barros is a 26 y.o. female seen for headaches. She has migraine style headaches that start with pain at back of neck that travels up to entire head. Feels like pressure and sharp. No vision change, no positional component, + photophobia, phonophobia, nausea and vomiting, light-headed. Without treatment she says they can last for weeks. Has had these since 9 years old. Last headache like this occurred in October and she feels she has maybe 2 of these per month. At its worst headaches were sending her to the ER 2 times a week around March/April. She last took esgic Friday(5 days ago) and aborted start of migraine style headache. She has these headaches 2-3x per week. Headache medications: Started amitriptyline 25mg in July by urology. Taking topiramate 200mg BID. Taking esgic 2-3x per week She reports she has tried botox and cervical injections in the past and these did not help. She reports having an allergic reaction to sumatriptan(throat closed, unable to breathe). Copper IUD contraception History of Present Illness Review of Systems Eyes: Positive for photophobia. Gastrointestinal: Positive for nausea and vomiting. Neurological: Positive for light-headedness and headaches. All other systems reviewed and are negative. Social History Social History Marital status: Single Spouse name: N/A Number of children: N/A Years of education: N/A Occupational History Not on file. Social History Main Topics Smoking status: Current Every Day Smoker Packs/day: 0.25 Years: 4.00 Types: Cigarettes Smokeless tobacco: Never Used Alcohol use No Drug use: No Sexual activity: Not Currently Other Topics Concern Not on file Social History Narrative Past Medical History: Diagnosis Date Anxiety disorder Depression Generalized headaches Sleep disorder Urinary tract infection Past Surgical History: Procedure Laterality Date EAR TUBES 1994 SINUS SURGERY 2004 [place] CYSTOURETHROSCOPY W/DIL BLADDER GENERAL ANESTH N/A 05/21/2016 CYSTOSCOPY, HYDRODISTENSION performed by Guillermo Mae MD at [facility]/ Periop HX APPENDECTOMY Family History Problem Relation Age of Onset Stroke Paternal Grandmother Stroke Paternal Grandfather Diabetes Other Hypertension Other Stroke Other Urologic Problems Other Objective: ACETAMINOPHEN-CAFFEINE PO Take by mouth. Indications: 50-325-40 mg as directed ALPRAZolam (XANAX) 0.25 mg tablet Take 1 mg by mouth every 8 hours as needed. One-two tabs every 8 hrs if needed amitriptyline (ELAVIL) 25 mg tablet Take 1 Tab by mouth at bedtime as needed. DULoxetine DR (CYMBALTA) 60 mg capsule Take 60 mg by mouth daily. hydrOXYzine (ATARAX) 10 mg tablet Take 1 Tab by mouth twice daily. hyoscyamine sulfate (LEVSIN/SL) 0.[address] 1 Tab under tongue every 4 hours as needed for Cramps. Max 1.5 mg/ day INTRAUTERINE DEVICE (IUD) IU by Intrauterine route. Copper T medroxyPROGESTERone (DEPO-PROVERA) 150 mg/mL injection Inject 150 mg to area (s) as directed every 90 days. omeprazole(+) (PRILOSEC) 10 mg capsule Take 20 mg by mouth daily before breakfast. ondansetron (ZOFRAN) 4 mg tablet Take 4 mg by mouth daily as needed. Sublingual daily TOPIRAMATE (TOPAMAX PO) Take 300 mg by mouth. Vitals: 12/05/16 0946 Weight: 61.9 kg (136 lb 8 oz) Height: 162.6 cm (64") Body mass index is 23.43 kg/(m^2). Physical Exam Neuro exam: Mental status: alert, oriented to person/place, and time Speech: Normal Abnormal Fluency x Comprehension x Articulation x Repetition x Naming x Cranial Nerves: Normal Abnormal II visual candelaria intact III, IV, pupils 3 mm, PERRL.extraocular movements with no saccadic intrusions, convergence and accommodation are normal, no nystagmus, no internuclear ophthalmoplegia V normal facial sensation in ophthalmic, maxillary, and mandibular dermatomes, muscles of mastication 5/5 bilaterally VII no facial droop, eye closure and eyebrow elevation symmetric/synchronous, Orbicularis oculi and Orbicularis Zahraa strength is 5/5 VIII hearing grossly intact bilaterally to finger rub IX, X Strong cough reflex Uvula to midline symmetric palatal elevation XI trapezii and sternocleidomastoids 5/5 bilaterally XII tongue midline, 5/5 strength bilaterally, no fasciculations Muscle/motor: Tone: Normal Bulk: Normal Fasciculations: NONE Pronator drift: NONE no resting, postural, or action tremor Grade 0,1,2,3,4,5) Neck flexors Neck extensors RIGHT LEFT Shoulder abductors 5 5 Elbow flexors 5 5 Elbow extensors 5 5 Wrist extensors 5 5 Wrist flexors 5 5 Finger flexors 5 5 Finger extensors 5 5 Finger abductors 5 5 Thumb abductors 5 5 Hip flexors 5 5 Hip abductors Hip extensors Hip adductors Knee flexors 5 5 Knee extensors 5 5 Ankle dorsiflexors 5 5 Ankle plantar flexors 5 5 Ankle inversion Ankle eversion Toe flexors Toe extensors Sensation: Normal RUE LUE RLE LLE Light Touch x Pin Prick x Vibration x Proprioception x Coordination: Normal Abnormal Right Abnormal Left Finger to Nose x Gait and Station: Romberg negative, narrow and stable gait Reflexes: Right Left Triceps 2 2 Biceps 2 2 Brachioradialis 2 2 Patella 2 2 Ankle 2 2 Plantar Downgoing Downgoing Assessment and Plan: 26 yof seen for migraine headaches. She has had apparent improved frequency with topiramate and takes esgic 2-3x per week for abortive without severe headache(still 10-12 headache days per month). Already on amitriptyline prn 25mg prescribed by urology for interstitial cystitis. She is on cymbalta prescribed for depression. - Continue topiramate 200mg BID - Will schedule amitriptyline 25mg qhs and increase to 50mg in 1 week. - She will continue to follow with Dr. Alejandra in [facility] 3 months Patient seen and discussed with Dr. Dunn in this encounter Plan of Treatment Not on fileas of this encounter Visit Diagnoses Diagnosis Migraine without aura, intractable - Primary Migraine without aura, with intractable migraine, so stated, without mention of status migrainosus Interstitial cystitis Chronic interstitial cystitis in this encounter
--- OUTSIDE RECORDS SUMMARY | 2017-01-09 17:31 | XMS REPORT | Encounter Summary ---
Author Author [facility] Organization [facility] Address Unknown Phone Unavailable Care Team Providers Care Blacksmith Apprentice Name Role Phone PCP Unavailable Reason for Visit * Reason Comments Pre-Visit Planning Dr. Pool 12/05/16 Encounter Details Date Type Department Care Team Description 12/03/2016 Telephone [facility] Jeff Pool MD Pre- Visit Planning ( Physicians - Neurology [address] [facility] Yrn 12/05/16) [facility] [address] [address] [facility] [place] [address] Social History Tobacco Use Types Packs/Day Years Used Date Current Every Day Smoker Cigarettes 0.25 4 Smokeless Tobacco: Never Used Alcohol Use Drinks/Week oz/Week Comments No Sex Assigned at Date Recorded Not on file as of this encounter Miscellaneous Notes * Telephone Encounter - Anu Musa RN - 12/03/2016 1:48 PM CDT Patient contacted for pre-visit information gathering r/t referral for migraine w/o aura. Referring provider: Dr. Alejandra Prior Imaging CT brain/spine: denies MRI brain/spine: denies Recent lab work: will request from Dr. Alejandra Previous neurologist: referring provider - will request records Confirmed appointment for 12/05/16 at 9:30am. in this encounter Plan of Treatment Not on fileas of this encounter Visit Diagnoses Not on filein this encounter
[2017-01-09] MEDS ORDERED: AMIT25TA9 (17:40)
[2017-01-09] MEDS ORDERED: BUTA1TAB9 (17:40)
--- NOTE | 2017-01-09 17:40 | ED Neurological Problem ---
General Chief Complaint: Head/Cervical Problems Stated Complaint: MIGRAINE Source: patient, family Exam Limitations: no limitations History of Present Illness Time seen by provider: 17:36 Initial Comments This 26-year-old white female presents with a four-day history of unremitting migraine headache. Patient has had long-standing migraines for which she has been evaluated by her physicians and currently by 2 neurologists (one local neurologist and one in [place] at ). Patient denies associated fever or chill, stiff neck, or severe photophobia. The patient states that her usual cocktail in the emergency department as effective for her headaches. Allergies and Home Medications Allergies Coded Allergies: sumatriptan (Unverified Allergy, Severe, ANAPHYLAXIS, 09/20/13) Penicillins (Unverified Allergy, Unknown, 09/20/13) sumatriptan succinate (Verified Adverse Reaction, Mild, 04/01/11) Home Medications Alprazolam 1 Mg Tablet, #90 (Reported) Amitriptyline HCl 25 Mg Tablet, (Reported) Butalb/Acetaminophen/Caffeine 1 Each Tablet, (Reported) Duloxetine HCl 60 Mg Capsule.dr, 60 MG PO, (Reported) Ibuprofen 600 Mg Tablet, 600 MG PO Q6H PRN for PAIN, (Reported) Omeprazole 20 Mg Capsule.dr, #30 (Reported) Ondansetron 4 Mg Tab.rapdis, 4 MG PO Q4H, #10 Prescribed by: YE CARBALLO on 05/07/161922 Topiramate 100 Mg Tablet, #90 (Reported) Constitutional: No chills, No fever Eyes: Denies Blindness, Denies Photophobia Ears, Nose, Mouth, Throat: denies ear pain Respiratory: No cough, No short of breath Cardiovascular: No chest pain Gastrointestinal: No abdominal pain, No diarrhea, nausea, vomiting Genitourinary: decreased output, dysuria, frequency Musculoskeletal: No back pain Skin: No change in color, No rash Psychiatric/Neurological: No Symptoms Reported Endocrine: No Symptoms Reported Hematologic/Lymphatic: No Symptoms Reported Past Ipabavp-Eyxkzr-Quiwzy Hx Patient Social History Type Used: Cigarettes Recent Foreign Travel: No Contact w/Someone Who Travel: No Recent Hopitalizations: No Immunizations Up To Date Tetanus Booster (TDap): Unknown PED Vaccines UTD: Yes Date of Influenza Vaccine: Jan 08, 2013 Seasonal Allergies Seasonal Allergies: No Surgeries History of Surgeries: Yes (SINUS, EXPL LAP, EAR TUBES, perineal tear repair) Surgeries: Abdominal, Appendectomy, Ear Surgery, Eye Surgery Respiratory History of Respiratory Disorde: No Cardiovascular History of Cardiac Disorders: No Neurological History of Neurological Disord: Yes Neurological Disorders: Headaches /Migraines 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 System Hx 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 Disorders: No Female 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 Disorders: Denies Genitourinary History of Genitourinary Disor: Yes Genitourinary Disorders: Bladder Infection Gastrointestinal History of Gastrointestinal Di: Yes Gastrointestinal Disorders: Gastroesophageal Reflux Musculoskeletal History of Musculoskeletal Dis: No Endocrine History of Endocrine Disorders: No Cancer History of Cancer: No Psychosocial History of Psychiatric Problem: Yes Behavioral Health Disorders: Sleep Difficulties, Anxiety, PTSD, Depression Integumentary History of Skin or Integumenta: No Blood Transfusions History of Blood Disorders: No Adverse Reaction to a Blood Tr: No Reviewed Nursing Assessment Reviewed/Agree w Nursing PMH: Yes Family Medical History Significant Family History: No Pertinent Family Hx Family Medial History: FH: bipolar disorder 19 FATHER 19 MOTHER Physical Exam Vital Signs Vital Sign - Last 12Hours 01/09/17 17:30 Temp 97.9 Pulse 95 Resp 18 B/P (MAP) 124/75 Pulse Ox 98 Capillary Refill : General Appearance: WD/WN, no apparent distress HEENT: normal ENT inspection Neck: non-tender, full range of motion, supple, normal inspection Respiratory: lungs clear Cardiovascular: normal peripheral pulses, regular rate, rhythm Gastrointestinal: normal bowel sounds, non tender Back: normal inspection Extremities: normal range of motion, non-tender 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: no motor/sensory deficits, normal mood/affect Crainal Nerves: normal hearing, normal speech Motor/Sensory: no motor deficit, no sensory deficit Progress/Results/Core Measures Results/Orders My Orders Orders - FADI DAVE MD Ns Iv 1000 Ml (Sodium Chloride 0.9%) (01/09/17 17:45) Ketorolac Injection (Toradol Injection) (01/09/17 17:45) Diphenhydramine Injection (Benadryl Inje (01/09/17 17:45) Promethazine Injection (Phenergan Injec (01/09/17 17:45) Medications Given in ED Current Medications Medications Dose Ordered Sig/Janine Route Start Time Stop Time Status Last Admin Dose Admin Diphenhydramine HCl 50 mg ONCE ONCE IVP 01/09/17 17:45 112/17 17:46 DC 01/09/17 17:55 50 MG Ketorolac Tromethamine 30 mg ONCE ONCE IVP 01/09/17 17:45 01/09/17 17:46 DC 01/09/17 17:55 30 MG Promethazine HCl 25 mg ONCE ONCE IVP 01/09/17 17:45 01/09/17 17:46 DC 01/09/17 17:55 25 MG Vital Signs/I&O Vital Sign - Last 12Hours 01/09/17 17:30 Temp 97.9 Pulse 95 Resp 18 B/P (MAP) 124/75 Pulse Ox 98 Progress Note : Time: 17:39 Progress Note Patient is given a liter normal saline with 25 mg of Phenergan, 50 mg of Benadryl, and 30 mg Toradol IV. 6 p.m. Following the administration of the Phenergan, Benadryl, Toradol the patient's headache abated. Departure Impression Impression: Primary Impression: Migraine Qualified Codes: G43.909 - Migraine, unspecified, not intractable, without status migrainosus Disposition: 01 HOME, SELF-CARE Condition: Improved Departure-Patient Inst. Decision time for Depature: 18:04 Referrals: GAUDENCIO RAJAN MD (PCP/Family) Primary Care Physician Patient Instructions: Migraine Headache (DC) Add. Discharge Instructions: Rest at home tonight. Return if any problems or questions. Follow-up with your doctor early next week. All discharge instructions reviewed with patient and/or family. Voiced understanding. FADI DAVE MD Jan 09, 2017 17:40
[2017-01-09] MEDS: NS IV 1000 ML 1,000 ML IV SCH (17:55)
[2017-01-09] MEDS: KETOROLAC 30 MG/ML VIAL IVP ONE (17:55)
[2017-01-09] MEDS: PROMETHAZINE INJ 25 MG/ML (PHENERGAN) AMP IVP ONE (17:55)
[2017-01-09] MEDS: diphenhydrAMINE 50 MG/ML INJ (BENADRYL) IVP ONE (17:55)
[2017-01-09 18:09] VITALS: BP 124/75
== END 2017-01-09 18:09 | disposition home or self-care (01) ==
LOC: EDUNIT# 17:22 → ER 17:24
DX: G43.909 Migraine, unspecified, not intractable, without status migrainosus (principal); K21.9 Gastro-esophageal reflux disease without esophagitis; F41.9 Anxiety disorder, unspecified; F43.10 Post-traumatic stress disorder, unspecified; F32.9 Major depressive disorder, single episode, unspecified; Z87.448 Personal history of other diseases of urinary system; Z90.49 Acquired absence of other specified parts of digestive tract

== ENCOUNTER 2017-01-27 21:35 | Emergency (ER) | payer MEDICARE, MEDICAID ==
[~2017-01-27] VITALS: Ht 162.6 cm; Wt 60.8 kg
[~2017-01-27 21:35] MED LIST changes: +AMIT25TA9; +BUTA1TAB9
--- OUTSIDE RECORDS SUMMARY | 2017-01-27 21:43 | XMS REPORT | Continuity of Care Document ---
Author Author [employer] [facility] Address Unknown Phone Unavailable Care Team Providers Care Vendette Name Role Phone [employer] Unavailable Unavailable Problems Medications Allergies, Adverse Reactions, Alerts Immunizations Results Vital Signs Encounters Location Location Details Encounter Type Encounter Number Reason For Visit Attending Provider ADM Date DC Date Status Source OUTPATIENT [id number] LASHA RAMÍREZ 05/13/20162016 Active [facility] O LASHA RAMÍREZ 12/05/2016 12/05/2016 Active [facility] Procedures Plan of Care Social History Assessment and Plan Family History Value Date Source Advance Directives Order Name Results Value Date Source
--- OUTSIDE RECORDS SUMMARY | 2017-01-27 21:43 | XMS REPORT | Encounter Summary ---
Author Author [facility] Organization [facility] Address Unknown Phone Unavailable Care Team Providers Care Social Work Msw Name Role Phone PCP Unavailable Reason for Referral * Consult, Test & Treat (Routine) Status Reason Specialty Diagnoses / Referred By Referred To Procedures Contact Contact New Request Specialty Physical Therapy Diagnoses Yuan Lee Services Interstitial PA-C Required cystitis [address] [place] [address] Reason for Visit * Reason Comments Blood in urine Encounter Details Date Type Department Care Team Description 12/05/2016 Office Visit [facility] Guillermo Mae MD Interstitial cystitis Physicians - Urology [address] [facility] (Primary Dx);Dysuria 2ND FLOOR POD A MS [address] [facility] [place] [address] OFFICE BLDG [phone] [place] [address] Social History Tobacco Use Types [...] more often than directed. Talk to your crystal syrup maker regarding the use of this medicine in [...] this medicine? Tell your doctor or health career development facilitator that you are taking this medicine if you are going to have a medical procedure or surgery. What side effects may I notice from receiving this medicine? Side effects that you should report to your doctor or health career development facilitator as soon as possible: allergic reactions like [...] attention (report to your doctor or health career development facilitator if they continue or are bothersome): hair loss headache nausea This list may not describe all possible side effects. Call your doctor for medical advice about side effects. You may report side effects to FDA at 4-015- FDA-9203. Where should I keep my medicine? Keep [...] was seen in the emergency room [facility] for urinary tract infection in October with [...] from ER recently ~ request sent to [place] Continue Atarax Continue Amitriptyline Continue Levsin PRN [...] impression and plan outlined by the Physician Religious Activities Director. The patient presents with (HPI) of interstitial [...]
--- OUTSIDE RECORDS SUMMARY | 2017-01-27 21:43 | XMS REPORT | Clinical Summary ---
Author Author [facility] Organization [facility] Address Unknown Phone Unavailable Care Team Providers Care Toolman Name Role Phone PCP Unavailable Source Comments Some departments are not documenting in the electronic medical record. If you do not see the information that you expected, contact Release of Information in the Health Information Management department at [phone] for further assistance in locating additional records.[facility] Allergies Active Allergy Reactions Severity Noted Date [...] 1 Tab under tongue 30 Tab 3 08/02/19 Active (LEVSIN/SL) 0.125 mg every 4 hours [...] from ER recently ~ request sent to [place] Continue Atarax Continue Amitriptyline Continue Levsin PRN [...] CDT Respiratory Rate 18 03/25/2013 9:18 AM SEWER PIPE OFFBEARER Oxygen Saturation 100% 05/21/2016 3:00 PM CDT [...]
--- OUTSIDE RECORDS SUMMARY | 2017-01-27 21:43 | XMS REPORT | Encounter Summary ---
Author Author [facility] Organization [facility] Address Unknown Phone Unavailable Care Team Providers Care Air Cargo Agent Name Role Phone PCP Unavailable Reason for Visit * Reason Comments New Patient Migraine Encounter Details Date Type Department Care Team Description 12/05/2016 Office Visit [facility] Jeff Pool MD Migraine without aura, Physicians - Neurology [address] [facility] intractable (Primary [facility] [place] [address] Dx);Interstitial cystitis [address] [facility] [place] [place] [address] Social History Tobacco Use Types [...] Date EAR TUBES 1994 SINUS SURGERY 2004 [place] CYSTOURETHROSCOPY W/DIL BLADDER GENERAL ANESTH N/A 05/21/2016 [...] continue to follow with Dr. Alejandra in [facility] 3 months Patient seen and discussed with Dr. Dunn in this encounter Plan of Treatment Not on fileas of this encounter Visit Diagnoses Diagnosis Migraine without aura, intractable - Primary Migraine without aura, with intractable migraine, so stated, without mention of status migrainosus Interstitial cystitis Chronic interstitial cystitis in this encounter
--- OUTSIDE RECORDS SUMMARY | 2017-01-27 21:43 | XMS REPORT | Encounter Summary ---
Author Author [facility] Organization [facility] Address Unknown Phone Unavailable Care Team Providers Care Automotive Electrical Helper Name Role Phone PCP Unavailable Reason for Visit * Reason Comments Pre-Visit Planning Dr. Pool 12/05/16 Encounter Details Date Type Department Care Team Description 12/03/2016 Telephone [facility] Jeff Pool MD Pre- Visit Planning ( Physicians - Neurology [address] [facility] Yrn 12/05/16) [facility] [address] [address] [facility] [place] [address] Social History Tobacco Use Types [...]
[2017-01-27 23:12] LABS: BILIRUBIN,URINE NEGATIVE (NEGATIVE); KETONES,URINE NEGATIVE (NEGATIVE); LEUKOCYTE ESTERASE ,URINE 2+ (NEGATIVE); NITRITE,URINE NEGATIVE (NEGATIVE); PH,URINE 8 (5-9); PROTEIN,URINE 1+ (NEGATIVE); UROBILINOGEN,URINE 1 MG/DL (NORMAL)
[2017-01-27] MEDS ORDERED: FLUCONAZOLE 150 MG TABLET (ED ONLY) PO STA (23:23)
--- NOTE | 2017-01-27 23:29 | ED GU-Female ---
General Chief Complaint: -Female Stated Complaint: POSS UTI/YEAST INFECTION/ABD AND BACK PAIN Nursing Triage Note: ABDOMINAL AND BACK PAIN x2 WEEKS, FREQUENT PAINFUL URINATION. BLOODY DISCHARGE TODAY. VAGINAL ITCHING. PATIENT HAS HISTORY OF INTERSTITIAL CYSTITIS. HAS IUD IN PLACE SINCE 2016. WAS AT URGENT CARE LAST WEEK AND PRESCRIBED UNKNOWN ANTIBIOTIC FOR SINUS INFECTION. SHE WAS ALSO GIVEN A STEROID SHOT. Nursing Sepsis Screen: No Definite Risk Source: patient Exam Limitations: no limitations History of Present Illness Time seen by provider: 23:15 Initial Comments Here with report of vaginal itching and discharge with history of being on antibiotics for several days. States that she had itching prior to antibiotic starting but certainly got worse afterwards. Discharge is white and sometimes bloody. She has had many breakthrough periods because she was on Depo shot but now is on IUD. Denies fever or chills. Reports she is not sexually active. Timing/Duration: constant, getting worse Severity/Quality: mild, moderate Location: vaginal, urethral Radiation: none Activities at Onset: none Sexual [place] History: not active Associated Symptoms: No abdominal pain, dysuria, No lower back pain, No nausea/ vomiting, urinary frequency Allergies and Home Medications Allergies Coded Allergies: sumatriptan (Unverified Allergy, Severe, ANAPHYLAXIS, 09/20/13) Penicillins (Unverified Allergy, Unknown, 09/20/13) sumatriptan succinate (Verified Adverse Reaction, Mild, 04/01/11) Home Medications Alprazolam 1 Mg Tablet, #90 (Reported) Amitriptyline HCl 25 Mg Tablet, (Reported) Butalb/Acetaminophen/Caffeine 1 Each Tablet, (Reported) Duloxetine HCl 60 Mg Capsule.dr, 60 MG PO, (Reported) Ibuprofen 600 Mg Tablet, 600 MG PO Q6H PRN for PAIN, (Reported) Omeprazole 20 Mg Capsule.dr, #30 (Reported) Ondansetron 4 Mg Tab.rapdis, 4 MG PO Q4H, #10 Prescribed by: YE CARBALLO on 05/07/161922 Topiramate 100 Mg Tablet, #90 (Reported) Constitutional: see HPI, No chills, No fever Respiratory: no symptoms reported Cardiovascular: no symptoms reported Gastrointestinal: no symptoms reported Genitourinary: see HPI, discharge, dysuria : No LMP: Jan 08, 2017 Psychiatric/Neurological: No Symptoms Reported Past Nuvvejh-Ymeyhn-Lrlmnd Hx Patient Social History Alcohol Use: Denies Use Recreational Drug Use: No Smoking Status: Current Everyday Smoker Type Used: Cigarettes Recent Foreign Travel: No Contact w/Someone Who Travel: No Recent Infectious Disease Expo: No Recent Hopitalizations: No Physical Abuse: No Sexual Abuse: No Immunizations Up To Date Tetanus Booster (TDap): Unknown PED Vaccines UTD: Yes Date of Influenza Vaccine: Jan 08, 2013 Seasonal Allergies Seasonal Allergies: No Surgeries History of Surgeries: Yes (SINUS, EXPL LAP, EAR TUBES, perineal tear repair) Surgeries: Abdominal, Appendectomy, Ear Surgery, Eye Surgery Respiratory History of Respiratory Disorde: No Cardiovascular History of Cardiac Disorders: No Neurological History of Neurological Disord: Yes Neurological Disorders: Headaches /Migraines 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 System Hx 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 Disorders: No Female 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 Disorders: Denies Genitourinary History of Genitourinary Disor: Yes Genitourinary Disorders: Bladder Infection Gastrointestinal History of Gastrointestinal Di: Yes Gastrointestinal Disorders: Gastroesophageal Reflux Musculoskeletal History of Musculoskeletal Dis: No Endocrine History of Endocrine Disorders: No Cancer History of Cancer: No Psychosocial History of Psychiatric Problem: Yes Behavioral Health Disorders: Sleep Difficulties, Anxiety, PTSD, Depression Suicide Risk Score: 0 Integumentary History of Skin or Integumenta: No Blood Transfusions History of Blood Disorders: No Adverse Reaction to a Blood Tr: No Reviewed Nursing Assessment Reviewed/Agree w Nursing PMH: Yes Family Medical History Significant Family History: No Pertinent Family Hx Family Medial History: FH: bipolar disorder 19 FATHER 19 MOTHER Physical Exam Vital Signs Vital Sign - Last 12Hours 01/27/17 21:45 Temp 97.0 Pulse 72 Resp 20 B/P (MAP) 118/70 Pulse Ox 99 Capillary Refill : Less Than 3 Seconds General Appearance: WD/WN, no apparent distress Cardiovascular: regular rate, rhythm, no murmur Respiratory: lungs clear, normal breath sounds Gastrointestinal: non tender, soft, no organomegaly, no pulsatile mass Back: normal inspection, no CVA tenderness, no vertebral tenderness Skin: normal color, warm/dry Progress/Results/Core Measures Suspected Sepsis Recent Fever Within 48 Hours: No Infection Criteria Present: Suspected New Infection New/Unexplained Altered Menta: No Sepsis Screen: No Definite Risk Sepsis Diagnosis: SIRS Temperature:97.0 Pulse: 72 Respiratory Rate: 20 Blood Pressure 118 /70 Mean: 86 Results/Orders Lab Results Laboratory Tests Test 01/27/17 23:05 Range/Units Urine Color YELLOW Urine Clarity VERY CLOUDY H Urine pH 8 5-9 Urine Specific [place] 1.015 L 1.016-1.022 Urine Protein 1+ H NEGATIVE Urine Glucose (UA) NEGATIVE NEGATIVE Urine Ketones NEGATIVE NEGATIVE Urine Nitrite NEGATIVE NEGATIVE Urine Bilirubin NEGATIVE NEGATIVE Urine Urobilinogen 1 NORMAL MG/DL Urine Leukocyte Esterase 2+ H NEGATIVE Urine RBC (Auto) 2+ H NEGATIVE Urine RBC NONE /HPF Urine WBC 2-5 /HPF Urine Squamous Epithelial Cells 2-5 /HPF Urine Crystals PRESENT H /LPF Urine Amorphous Sediment LARGE VANESA PHOSPHATE H /LPF Urine Bacteria NONE /HPF Urine Casts NONE /LPF Urine Mucus NEGATIVE /LPF Urine Culture Indicated NO My Orders Orders - BILLY MIRELES MD Ua Culture If Indicated (01/27/17 22:55) Urine Bedside (01/27/17 22:55) Fluconazole Tablet (Ed Only) (Diflucan T (01/27/17 23:23) Vital Signs/I&O Vital Sign - Last 12Hours 01/27/17 21:45 Temp 97.0 Pulse 72 Resp 20 B/P (MAP) 118/70 Pulse Ox 99 Capillary Refill : Less Than 3 Seconds Blood Pressure Mean: 86 Point of Care Testing Urine -Bedside: Negative Progress Note : Progress Note Seen and evaluated. UA ordered. Results noted. Subjectively we will treat patient for yeast infection. She would prefer to wait for pelvic of possible which is reasonable. She is currently on Biaxin. Discharged home with return precautions. Patient verbalize understanding instructions and agreement with plan. Departure Impression Impression: Primary Impression: Yeast vaginitis Disposition: HOME, SELF-CARE Condition: Stable Departure-Patient Inst. Decision time for Depature: 23:28 Referrals: GAUDENCIO RAJAN MD (PCP/Family) Primary Care Physician Patient Instructions: Vaginal Yeast Infection (DC) Add. Discharge Instructions: All discharge instructions reviewed with patient and/or family. Voiced understanding. You were given a dose of medicine to treat yeast infection. You may still use the crna-xia-rayhhhk Monistat and this will help with the itching. If symptoms aren't improving in a few days, follow up with your doctor for recheck and pelvic exam. Return for worse pain, fever, vomiting, weakness, difficulty with urination or other concerns as needed. BILLY MIRELES MD Jan 27, 2017 23:29
[2017-01-27 23:35] VITALS: BP 116/75
== END 2017-01-27 23:35 | disposition home or self-care (01) ==
LOC: EDUNIT# 21:35 → ER 21:36
DX: B37.3 Candidiasis of vulva and vagina (principal); G43.909 Migraine, unspecified, not intractable, without status migrainosus; K21.9 Gastro-esophageal reflux disease without esophagitis; F41.9 Anxiety disorder, unspecified; F43.10 Post-traumatic stress disorder, unspecified; F32.9 Major depressive disorder, single episode, unspecified; F17.210 Nicotine dependence, cigarettes, uncomplicated; Z87.448 Personal history of other diseases of urinary system; Z90.49 Acquired absence of other specified parts of digestive tract
CPT/HCPCS: 81000; 84703; 99283

== ENCOUNTER 2017-02-01 11:27 | Emergency (ER) | payer MEDICARE, MEDICAID ==
[~2017-02-01] VITALS: Ht 162.6 cm; Wt 59.0 kg
--- OUTSIDE RECORDS SUMMARY | 2017-02-01 11:32 | XMS REPORT | Encounter Summary ---
Author Author [facility] Organization [facility] Address Unknown Phone Unavailable Care Team Providers Care Administration Dean Name Role Phone PCP Unavailable Reason for Visit * Reason Comments Pre-Visit Planning Dr. Pool 12/05/16 Encounter Details Date Type Department Care Team Description 12/03/2016 Telephone [facility] Jeff Pool MD Pre- Visit Planning ( Physicians - Neurology [address] [facility] Yrn 12/05/16) [facility] [address] [address] [place] [address] Social History Tobacco Use Types [...]
--- OUTSIDE RECORDS SUMMARY | 2017-02-01 11:32 | XMS REPORT | Encounter Summary ---
Author Author [facility] Organization [facility] Address Unknown Phone Unavailable Care Team Providers Care Hand Packer Name Role Phone PCP Unavailable Reason for Visit * Reason Comments New Patient Migraine Encounter Details Date Type Department Care Team Description 12/05/2016 Office Visit [facility] Jeff Pool MD Migraine without aura, Physicians - Neurology [address] [facility] intractable (Primary [facility] [place] [address] Dx);Interstitial cystitis [address] [facility] [place] [address] Social History Tobacco Use Types [...] Date EAR TUBES 1994 SINUS SURGERY 2004 [place] CYSTOURETHROSCOPY W/DIL BLADDER GENERAL ANESTH N/A 05/21/2016 [...] continue to follow with Dr. Alejandra in [facility] 3 months Patient seen and discussed with Dr. Dunn in this encounter Plan of Treatment Not on fileas of this encounter Visit Diagnoses Diagnosis Migraine without aura, intractable - Primary Migraine without aura, with intractable migraine, so stated, without mention of status migrainosus Interstitial cystitis Chronic interstitial cystitis in this encounter
--- OUTSIDE RECORDS SUMMARY | 2017-02-01 11:32 | XMS REPORT | Encounter Summary ---
Author Author [facility] Organization [facility] Address Unknown Phone Unavailable Care Team Providers Care Director Of Head Start Name Role Phone PCP Unavailable Reason for Referral * Consult, Test & Treat (Routine) Status Reason Specialty Diagnoses / Referred By Referred To Procedures Contact Contact New Request Specialty Physical Therapy Diagnoses Yuan Lee Services Interstitial PA-C Required cystitis [address] [place] [address] Reason for Visit * Reason Comments Blood in urine Encounter Details Date Type Department Care Team Description 12/05/2016 Office Visit [facility] Guillermo Mae MD Interstitial cystitis Physicians - Urology [address] [facility] (Primary Dx);Dysuria [address]ND FLOOR POD A [address] [place] [address] OFFICE BLDG [phone] [place] [address] Social History Tobacco Use Types [...] more often than directed. Talk to your nut sheller machine operator regarding the use of this medicine [...] this medicine? Tell your doctor or health family day care worker that you are taking this medicine if you are going to have a medical procedure or surgery. What side effects may I notice from receiving this medicine? Side effects that you should report to your doctor or health family day care worker as soon as possible: allergic reactions like [...] attention (report to your doctor or health family day care worker if they continue or are bothersome): hair loss headache nausea This list may not describe all possible side effects. Call your doctor for medical advice about side effects. You may report side effects to FDA at 5-671- FDA-[phone]. Where should I keep my medicine? Keep [...] seen in the emergency room [facility] for urinary tract infection in October with [...] from ER recently ~ request sent to [place] Continue Atarax Continue Amitriptyline Continue Levsin PRN [...] impression and plan outlined by the Physician Home Delivery Driver. The patient presents with (HPI) of interstitial [...]
--- OUTSIDE RECORDS SUMMARY | 2017-02-01 11:32 | XMS REPORT | Clinical Summary ---
Author Author [facility] Organization [facility] Address Unknown Phone Unavailable Care Team Providers Care Drafter Commercial Name Role Phone PCP Unavailable Source Comments Some departments are not documenting in the electronic medical record. If you do not see the information that you expected, contact Release of Information in the Health Information Management department at [phone] for further assistance in locating additional records.[facility] Allergies Active Allergy Reactions Severity Noted [...] from ER recently ~ request sent to [place] Continue Atarax Continue Amitriptyline Continue Levsin PRN [...] CDT Respiratory Rate 18 03/25/2013 9:18 AM SUGARCANE PLANTER Oxygen Saturation 100% 05/21/2016 3:00 PM CDT [...]
--- OUTSIDE RECORDS SUMMARY | 2017-02-01 11:32 | XMS REPORT | Continuity of Care Document ---
Author Author [employer] Organization [facility] Address Unknown Phone Unavailable Care Team Providers Care Transportation Program Director Name Role Phone [employer] Unavailable Unavailable Problems Medications Allergies, Adverse Reactions, Alerts Immunizations Results Vital Signs Encounters Location Location Details Encounter Type Encounter Number Reason For Visit Attending Provider ADM Date DC Date Status Source OUTPATIENT [id number] LASHA RAMÍREZ 05/13/20162016 Active [facility] O LASHA RAMÍREZ 12/05/2016 12/05/2016 Active [facility] Procedures Plan of Care Social History Assessment and Plan Family History Value Date Source Advance Directives Order Name Results Value Date Source
[2017-02-01] MEDS ORDERED: KETOROLAC 30 MG/ML VIAL IVP ONE (12:15)
[2017-02-01] MEDS ORDERED: PROCHLORPERAZINE 10 MG/2ML INJ (COMPAZINE) IV ONE (12:15)
[2017-02-01] MEDS ORDERED: ONDANSETRON 4 MG/2 ML (SDV) Z0FRAN IVP ONE (12:15)
--- NOTE | 2017-02-01 12:17 | ED Headache ---
General Chief Complaint: Head/Cervical Problems Stated Complaint: MIGRANE Nursing Triage Note: HX OF CHRONIC MIGRAINES. THIS ONE STARTED 3 DAYS AGO ET HAS NOT TAKEN ANY MEDS TODAY FOR IT. Nursing Sepsis Screen: No Definite Risk Source: patient Exam Limitations: no limitations History of Present Illness Time seen by provider: 12:11 Initial Comments Patient presents to ER by private conveyance with chief complaint of 3 days progressively worsening migraine headache on the left side that is throbbing and started out or of clenching neck pain. She has no fevers, chills but she has had nausea and vomited twice today without blood in it. She denies any constipation abdominal pain shortness of breath or chest pain. She has a long- standing history of migraine headaches and has to come to the ER every month or so. She is allergic to triptan's. She is on amitriptyline and topiramate for prevention. She sees a neurologist at for her migraine headaches that she has experienced she was 9 years old. Allergies and Home Medications Allergies Coded Allergies: sumatriptan (Unverified Allergy, Severe, ANAPHYLAXIS, 09/20/13) Penicillins (Unverified Allergy, Unknown, 09/20/13) sumatriptan succinate (Verified Adverse Reaction, Mild, 04/01/11) Home Medications Alprazolam 1 Mg Tablet, #90 (Reported) Amitriptyline HCl 25 Mg Tablet, (Reported) Butalb/Acetaminophen/Caffeine 1 Each Tablet, (Reported) Duloxetine HCl 60 Mg Capsule.dr, 60 MG PO, (Reported) Ibuprofen 600 Mg Tablet, 600 MG PO Q6H PRN for PAIN, (Reported) Omeprazole 20 Mg Capsule.dr, #30 (Reported) Ondansetron 4 Mg Tab.rapdis, 4 MG PO Q4H, #10 Prescribed by: YE CARBALLO on 05/07/161922 Topiramate 100 Mg Tablet, #90 (Reported) Constitutional: No chills, No diaphoresis, No fever Eyes: Denies Blindness, Denies Blurred Vision Ears, Nose, Mouth, Throat: denies ear pain, denies ear discharge Respiratory: No cough, No short of breath Cardiovascular: No chest pain, No edema Gastrointestinal: No abdominal pain, No diarrhea, nausea, vomiting Genitourinary: No discharge, No dysuria : No Musculoskeletal: No back pain, No joint pain Skin: No pruritus, No rash Past Xwmxxlk-Gzjyvb-Flagum Hx Patient Social History Alcohol Use: Denies Use Recreational Drug Use: No Smoking Status: Current Everyday Smoker Type Used: Cigarettes Recent Foreign Travel: No Contact w/Someone Who Travel: No Recent Infectious Disease Expo: No Recent Hopitalizations: No Immunizations Up To Date Tetanus Booster (TDap): Unknown PED Vaccines UTD: Yes Date of Influenza Vaccine: Jan 08, 2013 Seasonal Allergies Seasonal Allergies: No Surgeries History of Surgeries: Yes (SINUS, EXPL LAP, EAR TUBES, perineal tear repair) Surgeries: Abdominal, Appendectomy, Ear Surgery, Eye Surgery Respiratory History of Respiratory Disorde: No Cardiovascular History of Cardiac Disorders: No Neurological History of Neurological Disord: Yes Neurological Disorders: Headaches /Migraines 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 System Hx 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 Disorders: No Female 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 Disorders: Denies 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 Genitourinary History of Genitourinary Disor: Yes Genitourinary Disorders: Bladder Infection Gastrointestinal History of Gastrointestinal Di: Yes Gastrointestinal Disorders: Gastroesophageal Reflux Musculoskeletal History of Musculoskeletal Dis: No Endocrine History of Endocrine Disorders: No Cancer History of Cancer: No Psychosocial History of Psychiatric Problem: Yes Behavioral Health Disorders: Sleep Difficulties, Anxiety, PTSD, Depression Integumentary History of Skin or Integumenta: No Blood Transfusions History of Blood Disorders: No Adverse Reaction to a Blood Tr: No Family Medical History Significant Family History: No Pertinent Family Hx Family Medial History: FH: bipolar disorder 19 FATHER 19 MOTHER Physical Exam Vital Signs Vital Sign - Last 12Hours 02/01/17 12:07 Temp 98.0 Pulse 74 Resp 18 B/P (MAP) 103/80 Pulse Ox 99 Capillary Refill : Less Than 3 Seconds General Appearance: WD/WN, moderate distress HEENT: PERRL/EOMI, pharynx normal Neck: non-tender, full range of motion, supple, normal inspection Cardiovascular: normal peripheral pulses, no edema Respiratory: no respiratory distress, no accessory muscle use Extremities: no pedal edema, no calf tenderness Psychiatric: alert, oriented x 3 Motor/Sensory: other (photophobia, phonophobia) Skin: normal color, warm/dry Progress/Results/Core Measures Results/Orders My Orders Orders - ROBERT LI Ketorolac Injection (Toradol Injection) (02/01/17 12:15) Prochlorperazine Injection (Compazine In (02/01/17 12:15) Ondansetron Injection (Zofran Injectio (02/01/17 12:15) Medications Given in ED Current Medications Medications Dose Ordered Sig/Janine Route Start Time Stop Time Status Last Admin Dose Admin Ketorolac Tromethamine 15 mg ONCE ONCE IVP 02/01/17 12:15 02/01/17 12:16 DC 02/01/17 12:22 15 MG Ondansetron HCl 4 mg ONCE ONCE IVP 02/01/17 12:15 02/01/17 12:16 DC 02/01/17 12:22 4 MG Prochlorperazine Edisylate 10 mg ONCE ONCE IV 02/01/17 12:15 02/01/17 12:16 DC 02/01/17 12:22 10 MG Vital Signs/I&O Vital Sign - Last 12Hours 02/01/17 12:07 Temp 98.0 Pulse 74 Resp 18 B/P (MAP) 103/80 Pulse Ox 99 Blood Pressure Mean: 88 Progress Note #1: Time: 12:15 Progress Note We'll address her nausea with Compazine and Zofran. We'll used Toradol for her pain. Unfortunately we cannot use triptan's due to her allergy. She has appropriate follow-up with neurology for her migraines. Progress Note #2: Time: 12:54 Progress Note Nausea is gone and her headache is improving patient is ready to go home. Departure Impression Impression: Primary Impression: Migraine Qualified Codes: G43.109 - Migraine with aura, not intractable, without status migrainosus Disposition: 01 HOME, SELF-CARE Condition: Improved Departure-Patient Inst. Referrals: GAUDENCIO RAJAN MD (PCP/Family) Primary Care Physician Patient Instructions: Migraine Headache (DC) Add. Discharge Instructions: Drink plenty of fluids and get some rest. Use NSAIDs such as Naprosyn 2 tablets twice a day or ibuprofen 4 tablets every 8 hours as well as Tylenol 1000 g every 8 hours for your pain. A cool, quiet, dark, calm place would be ideal for resting. Follow up with your neurologist to continue work on migraine prophylaxis. All discharge instructions reviewed with patient and/or family. Voiced understanding. Copy Copies To 1: GAUDENCIO RAJAN MD, TITUS J Feb 01, 2017 12:17
[2017-02-01 13:00] VITALS: BP 99/73
== END 2017-02-01 13:00 | disposition home or self-care (01) ==
LOC: EDUNIT# 11:27 → ER 11:28
DX: G43.909 Migraine, unspecified, not intractable, without status migrainosus (principal); K21.9 Gastro-esophageal reflux disease without esophagitis; F41.9 Anxiety disorder, unspecified; F43.10 Post-traumatic stress disorder, unspecified; F32.9 Major depressive disorder, single episode, unspecified; F17.210 Nicotine dependence, cigarettes, uncomplicated; Z90.49 Acquired absence of other specified parts of digestive tract; Z97.5 Presence of (intrauterine) contraceptive device; Z87.448 Personal history of other diseases of urinary system
CPT/HCPCS: 99282

== ENCOUNTER 2017-03-27 12:03 | Emergency (ER) | payer MEDICARE, MEDICAID ==
[~2017-03-27 12:03] MED LIST changes: +ACHD5005 PO; -FERR-74 PO; +FERR325T18 PO; -HYDR-3812 PO
== END 2017-03-27 13:40 | disposition left against medical advice (07) ==
LOC: EDUNIT# 12:03 → ER 12:04
DX: G43.909 Migraine, unspecified, not intractable, without status migrainosus (principal)

== ENCOUNTER 2017-04-17 19:43 | Emergency (ER) | payer MEDICARE, MEDICAID ==
[~2017-04-17] VITALS: Ht 162.6 cm; Wt 54.4 kg
[2017-04-17 21:42] LABS: BASOPHILS % (AUTO) 0 % (0-10); EOSINOPHILS # (AUTO) 0.2 10^3/uL (0.0-0.3); EOSINOPHILS % (AUTO) 1 % (0-10); HEMATOCRIT 44 % (35-52); HEMOGLOBIN 15.8 G/DL (11.5-16.0); LYMPHOCYTES # (AUTO) 4.8 X 10^3 (1.0-4.0); LYMPHOCYTES % (AUTO) 46 % (12-44); MEAN CORPUSCULAR HEMOGLOBIN 35 PG (25-34); MEAN CORPUSCULAR HGB CONC 36 G/DL (32-36); MEAN CORPUSCULAR VOLUME 98 FL (80-99); MEAN PLATELET VOLUME 10.5 FL (7.4-10.4); MONOCYTES # (AUTO) 0.4 X 10^3 (0.0-1.0); MONOCYTES % (AUTO) 4 % (0-12); NEUTROPHILS % (AUTO) 48 % (42-75); PLATELET COUNT 244 10^3/uL (130-400); RED BLOOD COUNT 4.51 10^6/uL (4.35-5.85); RED CELL DISTRIBUTION WIDTH 12.3 % (10.0-14.5); WHITE BLOOD COUNT 10.4 10^3/uL (4.3-11.0)
[2017-04-17 22:05] LABS: ALANINE AMINOTRANSFERASE 8 U/L (0-55); ALBUMIN 4.6 GM/DL (3.2-4.5); ALKALINE PHOSPHATASE 65 U/L (40-136); BILIRUBIN,TOTAL 0.4 MG/DL (0.1-1.0); BUN/CREATININE RATIO 11; CALCIUM 9.7 MG/DL (8.5-10.1); CARBON DIOXIDE 18 MMOL/L (21-32); CHLORIDE 111 MMOL/L (98-107); CREATININE SERUM 0.74 MG/DL (0.60-1.30); GFR ESTIMATED > 60; GLUCOSE 89 MG/DL (70-105); POTASSIUM 3.3 MMOL/L (3.6-5.0); SODIUM 139 MMOL/L (135-145); TOTAL PROTEIN 7.7 GM/DL (6.4-8.2)
[2017-04-17] MEDS ORDERED: KCL 10 MEQ TAB (MICRO K) PO ONE (22:30)
--- NOTE | 2017-04-17 22:34 | ED GU-Female ---
General Chief Complaint: -Female Stated Complaint: HEAVY VAGINAL BLEEDING, FAINT Nursing Triage Note: PT PRESENTS TO ER WITH COMPLAINT OF HEAVIER VAGINAL BLEEDING. PT STATES WITHIN 20 MINUTES SHE FILLED UP TWO PADS. STARTED TODAY. Nursing Sepsis Screen: No Definite Risk Source: patient Exam Limitations: no limitations History of Present Illness Date Seen by Provider: Apr 17, 2017 Time Seen by Provider: 21:09 Initial Comments This 26-year-old young lady presents to emergency room with heavy vaginal bleeding and cramping. She reports feeling 2 pads in 20 minutes at home which is unusual for her. She has been having irregular cycles that are usually light since having a copper T IUD placed in October. Bleeding is now slowing down. She denies sexual activity since January of last year. Bleeding started today. Pelvic pain was present to some degree last night. She denies any vaginal pain or discharge. She denies fever, nausea, vomiting, diarrhea, constipation, or urinary symptoms. She has not taken any medications for her symptoms. Allergies and Home Medications Allergies Coded Allergies: sumatriptan (Unverified Allergy, Severe, ANAPHYLAXIS, 09/20/13) Penicillins (Unverified Allergy, Unknown, 09/20/13) sumatriptan succinate (Verified Adverse Reaction, Mild, 04/01/11) Home Medications Alprazolam 1 Mg Tablet, #90 (Reported) Amitriptyline HCl 25 Mg Tablet, (Reported) Butalb/Acetaminophen/Caffeine 1 Each Tablet, (Reported) Duloxetine HCl 60 Mg Capsule.dr, 60 MG PO, (Reported) Ibuprofen 600 Mg Tablet, 600 MG PO Q6H PRN for PAIN, (Reported) Omeprazole 20 Mg Capsule.dr, #30 (Reported) Ondansetron 4 Mg Tab.rapdis, 4 MG PO Q4H, #10 Prescribed by: YE CARBALLO on 05/07/161922 Topiramate 100 Mg Tablet, #90 (Reported) Constitutional: no symptoms reported EENTM: no symptoms reported Respiratory: no symptoms reported Cardiovascular: no symptoms reported Gastrointestinal: no symptoms reported Genitourinary: see HPI : No Musculoskeletal: no symptoms reported Skin: no symptoms reported Psychiatric/Neurological: No Symptoms Reported Endocrine: No Symptoms Reported Past Mvkjxbj-Doybcf-Mgwyuy Hx Patient Social History Alcohol Use: Denies Use Recreational Drug Use: No Smoking Status: Current Everyday Smoker Type Used: Cigarettes Recent Foreign Travel: No Contact w/Someone Who Travel: No Recent Infectious Disease Expo: No Recent Hopitalizations: No Immunizations Up To Date Tetanus Booster (TDap): Unknown PED Vaccines UTD: Yes Date of Influenza Vaccine: Jan 08, 2013 Seasonal Allergies Seasonal Allergies: No Surgeries History of Surgeries: Yes (SINUS, EXPL LAP, EAR TUBES, perineal tear repair) Surgeries: Abdominal, Appendectomy, Ear Surgery, Eye Surgery Respiratory History of Respiratory Disorde: No Cardiovascular History of Cardiac Disorders: No Neurological History of Neurological Disord: Yes Neurological Disorders: Headaches /Migraines 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 System Hx 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 Disorders: No Female 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 Disorders: Denies 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 Genitourinary History of Genitourinary Disor: Yes (interstitial cystitis) Genitourinary Disorders: Bladder Infection Gastrointestinal History of Gastrointestinal Di: Yes Gastrointestinal Disorders: Gastroesophageal Reflux Musculoskeletal History of Musculoskeletal Dis: No Endocrine History of Endocrine Disorders: No HEENT History of HEENT Disorders: No Cancer History of Cancer: No Psychosocial History of Psychiatric Problem: Yes Behavioral Health Disorders: Sleep Difficulties, Anxiety, PTSD, Depression Integumentary History of Skin or Integumenta: No Blood Transfusions History of Blood Disorders: No Adverse Reaction to a Blood Tr: No Family Medical History Significant Family History: No Pertinent Family Hx Family Medial History: FH: bipolar disorder 19 FATHER 19 MOTHER Physical Exam Vital Signs Vital Signs - First Documented 04/17/17 21:23 Temp 98.0 Pulse 87 Resp 20 B/P (MAP) 113/91 (98) Pulse Ox 100 O2 Delivery Room Air Capillary Refill : Less Than 3 Seconds General Appearance: WD/WN, no apparent distress HEENT: PERRL/EOMI, normal ENT inspection Neck: normal inspection Cardiovascular: regular rate, rhythm, no murmur Respiratory: lungs clear, normal breath sounds, no respiratory distress, no accessory muscle use Gastrointestinal: normal bowel sounds, soft, tenderness (suprapubic) Back: normal inspection Extremities: normal inspection, no pedal edema 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: 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, no motor/sensory deficits, alert, normal mood/affect, oriented x 3 Skin: normal color, warm/dry Progress/Results/Core Measures Suspected Sepsis Recent Fever Within 48 Hours: No Infection Criteria Present: None New/Unexplained Altered Menta: No Sepsis Screen: No Definite Risk Sepsis Diagnosis: SIRS Temperature:98.0 Pulse: 87 Respiratory Rate: 20 Laboratory Tests 04/17/17 21:35: White Blood Count 10.4 Blood Pressure 113 /91 Mean: 98 Laboratory Tests 04/17/17 21:35: Creatinine 0.74, Platelet Count 244, Total Bilirubin 0.4 Results/Orders Lab Results Laboratory Tests Test 04/17/17 21:35 Range/Units White Blood Count 10.4 4.3-11.0 10^3/uL Red Blood Count 4.51 4.35-5.85 10^6/uL Hemoglobin 15.8 11.5-16.0 G/DL Hematocrit 44 35-52 % Mean Corpuscular Volume 98 80-99 FL Mean Corpuscular Hemoglobin 35 H 25-34 PG Mean Corpuscular Hemoglobin Concent 36 32-36 G/DL Red Cell Distribution Width 12.3 10.0-14.5 % Platelet Count 244 130-400 10^3/uL Mean Platelet Volume 10.5 H 7.4-10.4 FL Neutrophils (%) (Auto) 48 42-75 % Lymphocytes (%) (Auto) 46 H 12-44 % Monocytes (%) (Auto) 4 0-12 % Eosinophils (%) (Auto) 1 0-10 % Basophils (%) (Auto) 0 0-10 % Neutrophils # (Auto) 5.0 1.8-7.8 X 10^3 Lymphocytes # (Auto) 4.8 H 1.0-4.0 X 10^3 Monocytes # (Auto) 0.4 0.0-1.0 X 10^3 Eosinophils # (Auto) 0.2 0.0-0.3 10^3/uL Basophils # (Auto) 0.0 0.0-0.1 10^3/uL Sodium Level 139 135-145 MMOL/L Potassium Level 3.3 L 3.6-5.0 MMOL/L Chloride Level 111 H 98-107 MMOL/L Carbon Dioxide Level 18 L 21-32 MMOL/L Anion Gap 10 5-14 MMOL/L Blood Urea Nitrogen 8 7-18 MG/DL Creatinine 0.74 0.60-1.30 MG/DL Estimat Glomerular Filtration Rate > 60 BUN/Creatinine Ratio 11 Glucose Level 89 70-105 MG/DL Calcium Level 9.7 8.5-10.1 MG/DL Total Bilirubin 0.4 0.1-1.0 MG/DL Aspartate Amino Transf (AST/SGOT) 11 5-34 U/L Alanine Aminotransferase (ALT/SGPT) 8 0-55 U/L Alkaline Phosphatase 65 40-136 U/L Total Protein 7.7 6.4-8.2 GM/DL Albumin 4.6 H 3.2-4.5 GM/DL Serum Test, Qualitative NEGATIVE NEGATIVE My Orders Orders - CHRISTOPHE KENT MD Cbc With Automated Diff (04/17/17 21:09) Comprehensive Metabolic Panel (04/17/17 21:09) Hcg,Qualitative Serum (04/17/17 21:09) Saline Lock/Iv-Start (04/17/17 21:09) Potassium Chloride (Tablet) (Klor Con Ta (04/17/17 22:30) Medications Given in ED Current Medications Medications Dose Ordered Sig/Janine Route Start Time Stop Time Status Last Admin Dose Admin Potassium Chloride 20 meq ONCE ONCE PO 04/17/17 22:30 04/17/17 22:31 DC 04/17/17 22:39 20 MEQ Vital Signs/I&O Vital Sign - Last 12Hours 04/17/17 04/17/17 21:23 22:40 Temp 98.0 98.0 Pulse 87 88 Resp 20 20 B/P (MAP) 113/91 (98) Pulse Ox 100 97 O2 Delivery Room Air Room Air Capillary Refill : Less Than 3 Seconds Blood Pressure Mean: 98 Progress Note : Progress Note There were no significant abnormalities and labs. test was negative. Patient was advised to treat her pain with ibuprofen and Tylenol. She reports no history of STDs. She declined a pelvic exam. Departure Impression Impression: Primary Impression: Menorrhagia Qualified Codes: N92.4 - Excessive bleeding in the premenopausal period Additional Impression: Dysmenorrhea Disposition: HOME, SELF-CARE Condition: Stable Departure-Patient Inst. Decision time for Depature: 22:33 Referrals: GAUDENCIO RAJAN MD (PCP/Family) Primary Care Physician Patient Instructions: NO INSTRUCTIONS GIVEN Add. Discharge Instructions: Return to the ER if symptoms worsen or if you develop new symptoms such as fever over 100. Follow-up with Dr. Zuniga tomorrow morning. Please call his office first thing in the morning. You may use Tylenol (acetaminophen) up to 650 mg every 6 hours as needed for pain. Add ibuprofen up to 400 mg every 6 hours as needed for additional pain relief. All discharge instructions reviewed with patient and/or family. Voiced understanding. Copy Copies To 1: JUDAH ZUNIGA MD, JOSHUA T MD Apr 17, 2017 22:34
[2017-04-17 22:40] VITALS: BP 107/77
--- OUTSIDE RECORDS SUMMARY | 2017-04-20 07:13 | XMS REPORT | Clinical Summary ---
Author Author [facility] Organization [facility] Address Unknown Phone Unavailable Care Team Providers Care Safekeeping Clerk Name Role Phone Tami Cole MD Unavailable Dillon Simental MD PCP Source Comments Some departments are not documenting in the electronic medical record. If you do not see the information that you expected, contact Release of Information in the Health Information Management department at [phone] for further assistance in locating additional records.[facility] Allergies Active Allergy Reactions Severity Noted Date Comments Gabapentin SEE COMMENTS Low 12/05/2016 Numbness,weakness Sumatriptan Succinate ANAPHYLAXIS High 05/02/2016 Penicillins HIVES 12/30/2012 Sumatriptan-Naproxen SWOLLEN TONGUE 12/30/2012 Swollen throat Current Medications Prescription Sig. Disp. 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
--- OUTSIDE RECORDS SUMMARY | 2017-04-20 07:13 | XMS REPORT | Continuity of Care Document ---
Author Author [employer] Organization [facility] Address Unknown Phone Unavailable Care Team Providers Care Financial Solutions Advisor Name Role Phone [employer] Unavailable Unavailable Problems Medications Allergies, Adverse Reactions, Alerts Immunizations Results Vital Signs Encounters Location Location Details Encounter Type Encounter Number Reason For Visit Attending Provider ADM Date DC Date Status Source OUTPATIENT [id number] LASHA RAMÍREZ 05/13/20162016 Active [facility] OUTPATIENT [id number] JOSÉ LUIS MAK 02/13/2017 Active [facility] O JOSÉ LUIS MAK 07/10/2017 Active [facility] Procedures Plan of Care Social History Assessment and Plan Family History Advance Directives Functional Status
--- OUTSIDE RECORDS SUMMARY | 2017-04-20 07:21 | XMS REPORT | Continuity of Care Document ---
Author Author [facility] Address Unknown Phone Unavailable Allergies Active Description Code Type Severity Reaction Onset Reported/Identified Relationship to Patient Clinical Status Yes naproxen sodium [id number] Drug Allergy Mild N/A 04/01/2011 Yes sumatriptan succinate [id number] Drug Allergy Mild N/A 04/01/2011 Yes Penicillins Drug Allergy 07/02/2011 Yes Treximet Drug Allergy 07/02/2011 Yes sumatriptan [id number] Drug Allergy Severe ANAPHYLAXIS 09/20/2013 Yes Penicillins [id number] Drug Allergy Unknown N/A 09/20/2013 Medications There is no data. Problems Date Dx Coded Attending Type Code Diagnosis Diagnosed By 07/02/2011 300.4 DYSTHYMIC DISORDER 07/02/2011 URIEL BENITEZ APRN 300.4 DYSTHYMIC DISORDER 08/26/2011 466.0 ACUTE BRONCHITIS 08/26/2011 URIEL BENITEZ APRN 466.0 ACUTE BRONCHITIS 09/03/2011 455.3 EXTERNAL HEMORRHOIDS WITHOUT COMPLICATION 09/03/2011 461.9 ACUTE SINUSITIS UNSPECIFIED 09/03/2011 URIEL BENITEZ APRN 455.3 EXTERNAL HEMORRHOIDS WITHOUT COMPLICATION 09/03/2011 URIEL BENITEZ APRN 461.9 ACUTE SINUSITIS UNSPECIFIED 10/14/2011 307.81 TENSION HEADACHE 10/14/2011 URIEL BENITEZ APRN 307.81 TENSION HEADACHE 10/23/2011 919.4 INSECT BITE NONVENOMOUS OF OTHER MULTIPLE AND UNSPECIFIED SITES WITHOUT INFECTION 10/23/2011 URIEL BENITEZ APRN 919.4 INSECT BITE NONVENOMOUS OF OTHER MULTIPLE AND UNSPECIFIED SITES WITHOUT INFECTION 07/27/2013 JUAN MIGUEL JIMENEZ APRN Ot 780.2 11/12/2013 JUAN MIGUEL JIMENEZ APRN Ot 112.1 11/12/2013 JUAN MIGUEL JIMENEZ APRN Ot 782.0 12/03/2013 JENNIFER ROSAS Ot 599.0 [...] W/O INTRACT MGRN W08/23/2014 JENNIFER ROSAS Ot 724.2 LUMBAGO 08/23/2014 JENNIFER [...] CLASSIFIED 06/06/2015 TALA GONZALEZ DO Ot O99.89 OT DISEASES AND CONDITIONS COMPL PREG/C 06/06/2015 TALA [...] GESTATION OF 07/19/2015 ZEINAB YUN, LUIS A N Ot O60.03 LABOR WITHOUT DELIVERY, THIRD TR 07/19/2015 LUIS A ARRIOLA MD N Ot Z3A.36 36 WEEKS GESTATION OF 07/22/2015 GONZALEZ DOPIAA C Ot O47.1 FALSE LABOR AT OR AFTER 37 COMPLETED WEE 07/22/2015 GONZALEZ DO TALA C Ot Z3A.37 37 WEEKS GESTATION OF 07/26/2015 GONZALEZ DO TALA C Ot O47.1 FALSE LABOR AT OR AFTER 37 COMPLETED WEE 07/26/2015 LISA DO TALA C Ot Z3A.37 37 WEEKS GESTATION OF 07/27/2015 LUIS A ARRIOLA MD N Ot O60.03 LABOR WITHOUT DELIVERY, THIRD TR 07/27/2015 LUIS A ARRIOLA MD N Ot Z3A.36 36 WEEKS GESTATION OF 08/04/2015 GONZALEZ DOPIAA C Ot O47.1 FALSE LABOR AT OR AFTER 37 COMPLETED WEE 08/04/2015 GONZALEZ DO TALA C Ot Z3A.37 37 WEEKS GESTATION OF 08/10/2015 LISA QUINTANA TALA C Ot D62 ACUTE POSTHEMORRHAGIC ANEMIA 08/10/2015 PIA GONZALEZ DOA C Ot O70.2 THIRD DEGREE PERINEAL LACERATION DURING 08/10/2015 TALA GONZALEZ DO C Ot O76 ABNLT IN HEART RATE AND RHYTHM COM 08/10/2015 TALA GONZALEZ DO Ot O90.81 ANEMIA OF THE PUERPERIUM 08/10/2015 TALA GONZALEZ DO Ot Z23 ENCOUNTER FOR IMMUNIZATION 08/10/2015 TALA GONZALEZ DO Ot Z37.0 SINGLE LIVE 08/10/2015 TALA GONZALEZ DO C Ot Z3A.39 39 WEEKS GESTATION OF 08/12/2015 ASHLEY YUN, SIMON Valdes Ot F17.210 NICOTINE DEPENDENCE, CIGARETTES, UNCOMPL 08/12/2015 ASHLEY YUN, SIMON Valdes Ot N39.0 URINARY TRACT INFECTION, SITE NOT SPECIF 08/14/2015 SIMON RAMIREZ MD Ot F17.210 NICOTINE DEPENDENCE, CIGARETTES, UNCOMPL 08/14/2015 ASHLEY YUN, SIMON A Ot N39.0 URINARY TRACT INFECTION, [...] Roy Ot R30.0 DYSURIA 12/30/2015 BRYCE, STACEY JUICE MIXER Ot F17.210 NICOTINE DEPENDENCE, CIGARETTES, UNCOMPL 12/30/2015 BRYCE, STACEY JUICE MIXER Ot G43.909 MIGRAINE, UNSP, NOT INTRACTABLE, WITHOUT 12/30/2015 BRYCE, STACEY JUICE MIXER Ot R51 HEADACHE 12/30/2015 BRYCE, STACEY JUICE MIXER Ot Z79.899 OTHER CHEF KITCHEN MANAGER (CURRENT) DRUG THERAPY 01/01/2016 BRYCE, STACEY JUICE MIXER Ot F17.210 NICOTINE DEPENDENCE, CIGARETTES, UNCOMPL 01/01/2016 BRYCE, STACEY JUICE MIXER Ot G43.909 MIGRAINE, UNSP, NOT INTRACTABLE, WITHOUT 01/01/2016 BRYCE, STACEY JUICE MIXER Ot R51 HEADACHE 01/01/2016 BRYCE, STACEY JUICE MIXER Ot Z79.899 OTHER CORRECTION (CURRENT) DRUG THERAPY 02/29/2016 JUAN 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 Ot R51 HEADACHE 03/01/2016 JUAN 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 Ot R51 HEADACHE 03/15/2016 JUAN 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 Ot G43.909 MIGRAINE, UNSP, NOT INTRACTABLE, WITHOUT 03/15/2016 JUAN 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 Ot R51 HEADACHE 03/17/2016 TENZIN YUN, FADI Bennett Ot F17.210 NICOTINE DEPENDENCE, CIGARETTES, UNCOMPL 03/17/2016 TENZIN YUN, FADI Bennett Ot G43.909 MIGRAINE, UNSP, NOT INTRACTABLE, WITHOUT 03/18/2016 JUAN 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 Ot G43.909 MIGRAINE, UNSP, NOT INTRACTABLE, WITHOUT [...] CHRISTOPHE KENT MD T Ot Z79.899 OTHER CHEF KITCHEN MANAGER (CURRENT) DRUG THERAPY 04/01/2016 CHRISTOPHE KENT MD T Ot F17.210 NICOTINE DEPENDENCE, CIGARETTES, UNCOMPL 04/01/2016 CHRISTOPHE KENT MD T Ot R07.81 PLEURODYNIA 04/01/2016 CHRISTOPHE KENT MD T Ot R07.89 OTHER CHEST PAIN 04/01/2016 CHRISTOPHE KENT MD T Ot Z79.899 OTHER CORRECTION (CURRENT) DRUG THERAPY 04/04/2016 WILFREDO YUN, JOCELYNE Key Ot G43.019 MIGRAINE W/O AURA, INTRACTABLE, WITHOUT 04/05/2016 JENNIFER ROSAS Ot F17.210 NICOTINE DEPENDENCE, CIGARETTES, UNCOMPL 04/05/2016 JENNIFER ROSAS Ot G43.909 MIGRAINE, UNSP, NOT INTRACTABLE, WITHOUT 04/05/2016 DONTE YUN, CHRISTOPHE Madsen Ot F17.210 NICOTINE DEPENDENCE, CIGARETTES, UNCOMPL 04/05/2016 DONTE YUN, CHRISTOPHE Madsen Ot R07.81 PLEURODYNIA 04/05/2016 DONTE YUN, CHRISTOPHE Madsen Ot R07.89 OTHER CHEST PAIN 04/05/2016 DONTE YUN, CHRISTOPHE Madsen Ot Z79.899 OTHER CHEF KITCHEN MANAGER (CURRENT) DRUG THERAPY 04/24/2016 WILFREDO YUN, JOCELYNE K Ot G43.019 MIGRAINE W/O AURA, INTRACTABLE, WITHOUT 05/06/2016 ABDIRIZAK VILLALOBOS MDRA K Ot G43.019 MIGRAINE W/O AURA, INTRACTABLE, WITHOUT 05/07/2016 KAIT DO, YE K Ot F17.210 NICOTINE DEPENDENCE, CIGARETTES, UNCOMPL 05/07/2016 KAIT DO, YE K Ot G89.29 OTHER CHRONIC PAIN 05/07/2016 KAIT DO, YE K Ot R51 HEADACHE 05/08/2016 KAIT DO, YE K Ot F17.210 NICOTINE DEPENDENCE, CIGARETTES, UNCOMPL 05/08/2016 KAIT DO, YE K Ot G89.29 OTHER CHRONIC PAIN 05/08/2016 KAIT DO, YE K Ot R51 HEADACHE 05/27/2016 JENNIFER ROSAS Ot F17.210 NICOTINE DEPENDENCE, CIGARETTES, UNCOMPL 05/27/2016 JENNIFER ROSAS Ot G43.909 MIGRAINE, UNSP, NOT INTRACTABLE, WITHOUT 05/29/2016 JENNIFER ROSAS Ot F17.210 NICOTINE DEPENDENCE, CIGARETTES, UNCOMPL 05/29/2016 JENNIFER ROSAS Ot G43.909 MIGRAINE, UNSP, NOT INTRACTABLE, WITHOUT 05/31/2016 ASHLEY YUN, SIMON Valdes Ot G43.909 MIGRAINE, UNSP, NOT INTRACTABLE, WITHOUT 05/31/2016 ASHLEY YUN, SIMON A Ot R51 HEADACHE 05/31/2016 ASHLEY YUN, SIMON A Ot Z79.899 OTHER CHEF KITCHEN MANAGER (CURRENT) DRUG THERAPY 05/31/2016 ASHLEY YUN, SIMON A Ot G43.909 MIGRAINE, UNSP, NOT INTRACTABLE, WITHOUT 05/31/2016 ASHLEY YUN, SIMON A Ot R51 HEADACHE 05/31/2016 ASHLEY YUN, SIMON Valdes Ot Z79.899 OTHER CHEF KITCHEN MANAGER (CURRENT) DRUG THERAPY 06/22/2016 JUAN MIGUEL JIMENEZ APRN Ot G43.909 MIGRAINE, UNSP, NOT INTRACTABLE, WITHOUT 06/22/2016 JUAN MIGUEL JIMENEZ APRN Ot Z79.899 OTHER CORRECTION (CURRENT) DRUG THERAPY 07/01/2016 ALINE YUN, BILLY Roy Ot G43.909 MIGRAINE, UNSP, NOT INTRACTABLE, WITHOUT 07/01/2016 BILLY MIRELES MD Ot Z79.899 OTHER CHEF KITCHEN MANAGER (CURRENT) DRUG THERAPY 07/02/2016 BILLY MIRELES MD Ot G43.909 MIGRAINE, UNSP, NOT INTRACTABLE, WITHOUT 07/02/2016 BILLY MIRELES MD Ot Z79.899 OTHER CORRECTION (CURRENT) DRUG THERAPY 07/03/2016 BILLY MIRELES MD Ot G43.909 MIGRAINE, UNSP, NOT INTRACTABLE, WITHOUT 07/03/2016 BILLY MIRELES MD Ot Z79.899 OTHER CHEF KITCHEN MANAGER (CURRENT) DRUG THERAPY 07/06/2016 JENNIFER ROSAS Ot F17.210 NICOTINE DEPENDENCE, CIGARETTES, UNCOMPL 07/06/2016 JENNIFER ROSAS Ot G43.909 MIGRAINE, UNSP, NOT INTRACTABLE, WITHOUT 07/06/2016 JENNIFER ROSAS Ot Z79.899 OTHER CORRECTION (CURRENT) DRUG THERAPY 07/07/2016 JENNIFER ROSAS Ot F17.210 NICOTINE DEPENDENCE, CIGARETTES, UNCOMPL 07/07/2016 JENNIFER ROSAS Ot G43.909 MIGRAINE, UNSP, NOT INTRACTABLE, WITHOUT 07/07/2016 JENNIFER ROSAS Ot Z79.899 OTHER CORRECTION (CURRENT) DRUG THERAPY 09/27/2016 FADI DAVE MD Ot F17.210 NICOTINE DEPENDENCE, CIGARETTES, UNCOMPL 09/27/2016 TENZIN YUN, FADI Bennett Ot F32.9 MAJOR DEPRESSIVE DISORDER, SINGLE EPISOD 09/27/2016 FADI DAVE MD Ot F41.9 ANXIETY DISORDER, UNSPECIFIED 09/27/2016 FADI DAVE MD Ot F43.10 POST-TRAUMATIC STRESS DISORDER, UNSPECIF 09/27/2016 FADI DAVE MD Ot G43.909 MIGRAINE, UNSP, NOT INTRACTABLE, WITHOUT 09/27/2016 TENZIN YUN, FADI Bennett Ot K21.9 GASTRO-ESOPHAGEAL REFLUX DISEASE WITHOUT 09/27/2016 TENZIN YUN, FADI Bennett Ot Z90.49 ACQUIRED ABSENCE OF OTHER SPECIFIED PART 10/01/2016 TENZIN YUN, FADI Bennett Ot F17.210 NICOTINE DEPENDENCE, CIGARETTES, UNCOMPL 10/01/2016 TENZIN YUN, FADI Bennett Ot F32.9 MAJOR DEPRESSIVE DISORDER, SINGLE EPISOD 10/01/2016 TENZIN YUN, FADI Bennett Ot F41.9 ANXIETY DISORDER, UNSPECIFIED 10/01/2016 TENZIN YUN, FADI Bennett Ot F43.10 POST-TRAUMATIC STRESS DISORDER, UNSPECIF 10/01/2016 TENZIN YUN, FADI Bennett Ot G43.909 MIGRAINE, UNSP, NOT INTRACTABLE, WITHOUT 10/01/2016 TENZIN YUN, FADI Bennett Ot K21.9 GASTRO-ESOPHAGEAL REFLUX DISEASE WITHOUT 10/01/2016 TENZIN YUN, FADI Bennett Ot Z90.49 ACQUIRED ABSENCE OF OTHER SPECIFIED PART 11/11/2016 KAIT DO, YE K Ot F17.210 NICOTINE DEPENDENCE, CIGARETTES, UNCOMPL 11/11/2016 KAIT DO, YE K Ot F32.9 MAJOR DEPRESSIVE DISORDER, SINGLE EPISOD 11/11/2016 KAIT DO, YE K Ot F41.9 ANXIETY DISORDER, UNSPECIFIED 11/11/2016 KAIT DO, YE K Ot F43.10 POST-TRAUMATIC STRESS DISORDER, UNSPECIF 11/11/2016 KAIT DO, YE K Ot G43.909 MIGRAINE, UNSP, NOT INTRACTABLE, WITHOUT 11/11/2016 KAIT DO YE K Ot K21.9 GASTRO-ESOPHAGEAL REFLUX DISEASE WITHOUT 11/11/2016 KAIT DO, YE K Ot N39.0 URINARY TRACT INFECTION, SITE NOT SPECIF 11/11/2016 KAIT DO YE K Ot R30.0 DYSURIA 11/11/2016 KAIT DO YE K Ot Z87.448 PERSONAL HISTORY OF OTHER DISEASES OF UR 11/11/2016 KAIT DO YE K Ot Z90.49 ACQUIRED ABSENCE OF OTHER SPECIFIED PART 11/13/2016 KAIT DO, YE K Ot F17.210 NICOTINE DEPENDENCE, CIGARETTES, UNCOMPL 11/13/2016 KAIT DO YE K Ot F32.9 MAJOR DEPRESSIVE DISORDER, SINGLE EPISOD 11/13/2016 KAIT DO, YE K Ot F41.9 ANXIETY DISORDER, UNSPECIFIED 11/13/2016 KAIT DO, YE K Ot F43.10 POST-TRAUMATIC STRESS DISORDER, UNSPECIF 11/13/2016 KAIT DO, YE K Ot G43.909 MIGRAINE, UNSP, NOT INTRACTABLE, WITHOUT 11/13/2016 KAIT DO, YE K Ot K21.9 GASTRO-ESOPHAGEAL REFLUX DISEASE WITHOUT 11/13/2016 KAIT DO, YE K Ot N39.0 URINARY TRACT INFECTION, SITE NOT SPECIF 11/13/2016 KAIT YE QUINTANA K Ot R30.0 DYSURIA 11/13/2016 KAIT DO, YE K Ot Z87.448 PERSONAL HISTORY OF OTHER DISEASES OF UR 11/13/2016 KAIT , YE K Ot Z90.49 ACQUIRED ABSENCE OF OTHER SPECIFIED PART 01/09/2017 WILFREDO YUN, JOCELYNE Key Ot G43.019 MIGRAINE W/O AURA, INTRACTABLE, WITHOUT 01/09/2017 TENZIN YUN, FADI Bennett Ot F32.9 MAJOR DEPRESSIVE DISORDER, SINGLE EPISOD 01/09/2017 TENZIN YUN, FADI Bennett Ot F41.9 ANXIETY DISORDER, UNSPECIFIED 01/09/2017 TENZIN YUN, FADI Bennett Ot F43.10 POST-TRAUMATIC STRESS DISORDER, UNSPECIF 01/09/2017 TENZIN YUN, FADI Bennett Ot G43.909 MIGRAINE, UNSP, NOT INTRACTABLE, WITHOUT 01/09/2017 TENZIN YUN, FADI Bennett Ot K21.9 GASTRO-ESOPHAGEAL REFLUX DISEASE WITHOUT 01/09/2017 TENZIN YUN, FADI Bennett Ot Z87.448 PERSONAL HISTORY OF OTHER DISEASES OF UR 01/09/2017 TENZIN YUN, FADI Bennett Ot Z90.49 ACQUIRED ABSENCE OF OTHER SPECIFIED PART 01/27/2017 BILLY MIRELES MD Ot B37.3 CANDIDIASIS OF VULVA AND VAGINA 01/27/2017 BILLY MIRELES MD Ot F17.210 NICOTINE DEPENDENCE, CIGARETTES, UNCOMPL 01/27/2017 BILLY MIRELES MD Ot F32.9 MAJOR DEPRESSIVE DISORDER, SINGLE EPISOD 01/27/2017 BILLY MIRELES MD Ot F41.9 ANXIETY DISORDER, UNSPECIFIED 01/27/2017 BILLY MIRELES MD Ot F43.10 POST-TRAUMATIC STRESS DISORDER, UNSPECIF 01/27/2017 BILLY MIRELES MD Ot G43.909 MIGRAINE, UNSP, NOT INTRACTABLE, WITHOUT 01/27/2017 BILLY MIRELES MD Ot K21.9 GASTRO-ESOPHAGEAL REFLUX DISEASE WITHOUT 01/27/2017 BILLY MIRELES MD Ot N89.8 OTHER SPECIFIED NONINFLAMMATORY DISORDER 01/27/2017 BILLY MIRELES MD Ot Z87.448 PERSONAL HISTORY OF OTHER DISEASES OF UR 01/27/2017 BILLY MIRELES MD Ot Z90.49 ACQUIRED ABSENCE OF OTHER SPECIFIED PART 02/01/2017 ROBERT LI MD Ot F17.210 NICOTINE DEPENDENCE, CIGARETTES, UNCOMPL 02/01/2017 ROBERT LI MD Ot F32.9 MAJOR DEPRESSIVE DISORDER, SINGLE EPISOD 02/01/2017 ROBERT LI MD Ot F41.9 ANXIETY DISORDER, UNSPECIFIED 02/01/2017 ROBERT LI MD Ot F43.10 POST-TRAUMATIC STRESS DISORDER, UNSPECIF 02/01/2017 ROBERT LI MD Ot G43.909 MIGRAINE, UNSP, NOT INTRACTABLE, WITHOUT 02/01/2017 ROBERT LI MD Ot K21.9 GASTRO-ESOPHAGEAL REFLUX DISEASE WITHOUT 02/01/2017 ROBERT LI MD Ot Z87.448 PERSONAL HISTORY OF OTHER DISEASES OF UR 02/01/2017 ROBERT LI MD Ot Z90.49 ACQUIRED ABSENCE OF OTHER SPECIFIED PART 02/01/2017 ROBRET LI MD Ot Z97.5 PRESENCE OF (INTRAUTERINE) CONTRACEPTIVE 03/27/2017 YE CARBALLO DO Ot G43.909 MIGRAINE, UNSP, NOT INTRACTABLE, WITHOUT 03/31/2017 YE CARBALLO DO Ot G43.909 MIGRAINE, UNSP, NOT INTRACTABLE, WITHOUT Procedures Code Description Performed By Performed On [id number] REPAIR ANAL SPHINCTER, OPEN APPROACH 08/08/2015 [id number] INTRODUCE OTH THERAP SUBST IN PERIPH VEI 08/08/2015 Results Test Result Range Complete urinalysis with reflex to culture - 11/12/15 14:19 Urine color determination YELLOW NRG Urine clarity determination CLEAR NRG Urine pH measurement by test strip 6.5 5-9 Specific gravity of urine by test strip 1.020 1.016- 1.022 Urine protein assay by test strip, semi-quantitative [...] culture - 11/12/15 14:19 Bacterial urine culture [id number] NRG COLONY COUNT >100,000/ML NRG URINE CULTURE [...] Urine pH measurement by test strip 7 5-9 Specific gravity of urine by test strip 1.015 1.016- 1.022 Urine protein assay by test strip, semi-quantitative [...] 11:21 Blood leukocytes automated count (number/volume) 8.2 10*3/uL 4.3-11.0 Blood erythrocytes automated count (number/volume) 4.31 10*6/uL 4.35-5.85 Venous blood hemoglobin measurement (mass/volume) 14.0 [...] Automated blood platelet mean volume measurement 10.2 [foz_us] 7.4-10.4 Automated blood neutrophils/100 leukocytes 52 % [...] Serum or plasma sodium measurement (moles/volume) 140 mmol/L 135-145 Serum or plasma potassium measurement (moles/volume) 3.7 mmol/L 3.6-5.0 Serum or plasma chloride measurement (moles/volume) 115 mmol/L 98-107 Carbon dioxide 18 mmol/L 21-32 Serum or plasma anion gap determination (moles/volume) 7 mmol/L 5-14 Serum or plasma urea nitrogen measurement (mass/volume) 6 mg/dL 7-18 Serum or plasma creatinine measurement (mass/volume) 0.66 mg/dL 0.60-1.30 Serum or plasma urea nitrogen/creatinine mass [...] plasma C reactive protein measurement (mass/volume) 0.10 mg /dL 0.00-0.50 Automated blood complete blood count (hemogram) panel - 04/03/16 13:58 Blood leukocytes automated count (number/volume) 11.4 10*3/uL 4.3-11.0 Blood erythrocytes automated count (number/volume) 3.93 10*6/uL 4.35-5.85 Venous blood hemoglobin measurement (mass/volume) 13.4 [...] Automated blood platelet mean volume measurement 9.1 [foz_us] 7.4-10.4 Comprehensive metabolic panel - 04/03/16 13:58 Serum or plasma sodium measurement (moles/volume) 140 mmol/L 135-145 Serum or plasma potassium measurement (moles/volume) 3.4 mmol/L 3.6-5.0 Serum or plasma chloride measurement (moles/volume) 108 mmol/L 98-107 Carbon dioxide 23 mmol/L 21-32 Serum or plasma anion gap determination (moles/volume) 9 mmol/L 5-14 Serum or plasma urea nitrogen measurement (mass/volume) 12 mg/dL 7-18 Serum or plasma creatinine measurement (mass/volume) 0.66 mg/dL 0.60-1.30 Serum or plasma urea nitrogen/creatinine mass [...] rate by westergren method 3 mm 0-35 Urine drug screening test - 11/11/16 19:42 Urine phencyclidine detection by screening method NEGATIVE NEGATIVE Urine benzodiazepines detection by screening method NEGATIVE NEGATIVE Urine cocaine detection NEGATIVE NEGATIVE Urine amphetamines detection by screening method NEGATIVE NEGATIVE Urine methamphetamine detection by screening method NEGATIVE NEGATIVE Urine cannabinoids detection by screening method NEGATIVE NEGATIVE Urine opiates detection by screening method NEGATIVE NEGATIVE Urine barbiturates detection POSITIVE NEGATIVE Screening urine tricyclic antidepressants detection NEGATIVE NEGATIVE Urine methadone detection by screening method NEGATIVE NEGATIVE Urine oxycodone detection NEGATIVE NEGATIVE Urine propoxyphene detection NEGATIVE NEGATIVE Complete urinalysis with reflex to culture - 11/11/16 19:42 Urine color determination YELLOW NRG Urine clarity determination SLIGHTLY CLOUDY NRG Urine pH measurement by test strip 5 5-9 Specific gravity of urine by test strip 1.030 1.016- 1.022 Urine protein assay by test strip, semi-quantitative 2+ NEGATIVE Urine glucose detection by automated test strip NEGATIVE NEGATIVE Erythrocytes detection in urine sediment by light microscopy 4+ NEGATIVE Urine ketones detection by automated test strip 1+ NEGATIVE Urine nitrite detection by test strip [...] in urine sediment by light microscopy NEGATIVE NRG Squamous epithelial cells detection in urine sediment by light microscopy >50 NRG Crystals detection in urine sediment by light microscopy PRESENT NRG Casts detection in urine sediment by light microscopy NONE NRG Mucus detection in urine sediment by light microscopy NEGATIVE NRG Complete urinalysis with reflex to culture YES NRG Yeast detection in urine sediment by light microscopy FEW NRG Calcium oxalate crystals detection in urine sediment by light microscopy MODERATE NRG Bacterial urine culture - 11/11/16 19:42 Bacterial urine culture [id number] NRG COLONY COUNT <10,000 NRG FTX;REPORTABLE PLUS, MIXED GRAM POSITIVES <10,000/ML NRG URINE CULTURE RESULTS <10,000/ML NRG Complete urinalysis with reflex to culture - 01/27/17 23:05 Urine color determination YELLOW NRG Urine clarity determination VERY CLOUDY NRG Urine pH measurement by test strip 8 5-9 Specific gravity of urine by test strip 1.015 1.016- 1.022 Urine protein assay by test strip, semi-quantitative 1+ NEGATIVE Urine glucose detection by automated test strip NEGATIVE NEGATIVE Erythrocytes detection in urine sediment by light microscopy 2+ NEGATIVE Urine ketones detection by automated test strip NEGATIVE NEGATIVE Urine nitrite detection by test strip NEGATIVE NEGATIVE Urine total bilirubin detection by test strip NEGATIVE NEGATIVE Urine urobilinogen measurement by automated test strip (mass/volume) 1 mg/dL NORMAL Urine leukocyte esterase detection by dipstick 2+ NEGATIVE Automated urine sediment erythrocyte count by microscopy (number/high power field) NONE NRG Automated urine sediment leukocyte count by microscopy (number/high power field ) [HPF] NRG Bacteria detection in urine sediment by light microscopy NONE NRG Squamous epithelial cells detection in urine sediment by light microscopy 2-5 NRG Crystals detection in urine sediment by light microscopy PRESENT NRG Casts detection in urine sediment by light microscopy NONE NRG Mucus detection in urine sediment by light microscopy NEGATIVE NRG Complete urinalysis with reflex to culture NO NRG Amorphous sediment detection in urine sediment by light microscopy LARGE VANESA PHOSPHATE NRG Complete blood count (CBC) with automated white blood cell (WBC) differential - 04/17/17 21:35 Blood leukocytes automated count (number/volume) 10.4 10*3/uL 4.3-11.0 Blood erythrocytes automated count (number/volume) 4.51 10*6/uL 4.35-5.85 Venous blood hemoglobin measurement (mass/volume) 15.8 g/dL 11.5-16.0 Blood hematocrit (volume fraction) 44 % 35-52 Automated erythrocyte mean corpuscular volume 98 [foz_us] 80-99 Automated erythrocyte mean corpuscular hemoglobin (mass per erythrocyte) 35 pg 25-34 Automated erythrocyte mean corpuscular hemoglobin concentration measurement ( mass/volume) 36 g/dL 32-36 Automated erythrocyte distribution width ratio 12.3 % 10.0-14.5 Automated blood platelet count (count/volume) 244 10*3/uL 130-400 Automated blood platelet mean volume measurement 10.5 [foz_us] 7.4-10.4 Automated blood neutrophils/100 leukocytes 48 % 42-75 Automated blood lymphocytes/100 leukocytes 46 % 12-44 Blood monocytes/100 leukocytes 4 % 0-12 Automated blood eosinophils/100 leukocytes 1 % 0-10 Automated blood basophils/100 leukocytes 0 % 0-10 Blood neutrophils automated count (number/volume) 5.0 10*3 1.8-7.8 Blood lymphocytes automated count (number/volume) 4.8 10*3 1.0-4.0 Blood monocytes automated count (number/volume) 0.4 10*3 0.0-1.0 Automated eosinophil count 0.2 10*3/uL 0.0-0.3 Automated blood basophil count (count/volume) 0.0 10*3/uL 0.0-0.1 Comprehensive metabolic panel - 04/17/17 21:35 Serum or plasma sodium measurement (moles/volume) 139 mmol/L 135-145 Serum or plasma potassium measurement (moles/volume) 3.3 mmol/L 3.6-5.0 Serum or plasma chloride measurement (moles/volume) 111 mmol/L 98-107 Carbon dioxide 18 mmol/L 21-32 Serum or plasma anion gap determination (moles/volume) 10 mmol/L 5-14 Serum or plasma urea nitrogen measurement (mass/volume) 8 mg/dL 7-18 Serum or plasma creatinine measurement (mass/volume) 0.74 mg/dL 0.60-1.30 Serum or plasma urea nitrogen/creatinine mass ratio 11 NRG Serum or plasma creatinine measurement with calculation of estimated glomerular filtration rate > NRG Serum or plasma glucose measurement (mass/volume) 89 mg/dL 70-105 Serum or plasma calcium measurement (mass/volume) 9.7 mg/dL 8.5-10.1 Serum or plasma total bilirubin measurement (mass/volume) 0.4 mg/dL 0.1-1.0 Serum or plasma alkaline phosphatase measurement (enzymatic activity/volume) 65 U/L 40-136 Serum or plasma aspartate aminotransferase measurement (enzymatic activity/ volume) 11 U/L 5-34 Serum or plasma alanine aminotransferase measurement (enzymatic activity/volume ) 8 U/L 0-55 Serum or plasma protein measurement (mass/volume) 7.7 g/dL 6.4-8.2 Serum or plasma albumin measurement (mass/volume) 4.6 g/dL 3.2-4.5 Serum or plasma choriogonadotropin ( test) detection - 04/17/17 21:35 Serum or plasma choriogonadotropin ( test) detection NEGATIVE NEGATIVE Encounters ACCT No. Visit Date/Time Discharge Status Pt. Type Provider Facility Loc./Unit Complaint [id number] 12/05/2011 11:38:00 12/05/2011 23:59:59 CLS Outpatient ELI CASTROURIEL [id number] 12/05/2011 11:38:00 12/05/2011 23:59:59 CLS Outpatient [id number] 03/27/2017 12:04:00 03/27/2017 13:40:00 DIS Emergency KAIT YE QUINTANA [facility] ER MIGRAINES [id number] 02/01/2017 11:28:00 02/01/2017 13:00:00 DIS Emergency ROBERT LI MD [facility] ER MIGRANE [id number] 01/27/2017 21:36:00 01/27/2017 23:35:00 DIS Emergency BILLY MIRELES MD [facility] ER POSS UTI/YEAST INFECTION/ABD AND BACK PAIN [id number] 01/09/2017 17:24:00 01/09/2017 18:09:00 DIS Emergency FADI DAVE MD [facility] ER MIGRAINE [id number] 11/11/2016 19:36:00 11/11/2016 20:26:00 DIS Emergency KAIT QUINTANA YE Shahid [facility] ER POSS UTI [id number] 09/27/2016 09:09:00 09/27/2016 09:40:00 DIS Emergency FADI DAVE MD [facility] ER MIGRAINE [id number] 07/06/2016 12:57:00 07/06/2016 14:30:00 DIS Emergency JENNIFER ROSAS [facility] ER MIGRAINE [id number] 07/01/2016 19:46:00 07/01/2016 21:12:00 DIS Emergency BILLY MIRELES MD [facility] ER MIGRAINE [id number] 06/22/2016 20:55:00 06/22/2016 23:37:00 DIS Emergency JUAN MIGUEL JIMENEZ APRN [facility] ER MIGRAINE [id number] 05/31/2016 09:52:00 05/31/2016 11:26:00 DIS Emergency SIMON RAMIREZ MD [facility] ER MIGRAINE [id number] 05/27/2016 18:53:00 05/27/2016 21:07:00 DIS Emergency JENNIFER ROSAS [facility] ER MIGRAINE [id number] 05/07/2016 19:02:00 05/07/2016 20:29:00 DIS Emergency YE CARBALLO DO [facility] ER MIGRAINE [id number] 04/03/2016 13:46:00 04/03/2016 23:59:59 CLS Outpatient JOCELYNE VILLALOBOS MD [facility] LAB MIGRAINE HEADACHE [id number] 03/29/2016 00:14:00 03/29/2016 01:44:00 DIS Emergency CHRISTOPHE KENT MD [facility] ER CP [id number] 03/26/2016 17:51:00 03/26/2016 21:11:00 DIS Emergency JENNIFER ROSAS [facility] ER MIGRAINE [id number] 03/17/2016 11:25:00 03/17/2016 13:12:00 DIS Emergency FADI DAVE MD [facility] ER MIGRAINE [id number] 03/15/2016 17:36:00 03/15/2016 18:31:00 DIS Emergency JUAN MIGUEL JIMENEZ APRN [facility] ER MIGRAINE [id number] 02/29/2016 20:24:00 02/29/2016 21:25:00 DIS Emergency JUAN 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 [facility] ER MIGRAINE [id number] 12/30/2015 19:16:00 12/30/2015 21:08:00 DIS Emergency STACEY WU [facility] ER MIGRAINE [id number] 11/29/2015 10:15:00 11/29/2015 13:39:00 DIS Emergency BILLY MIRELES MD [facility] ER UNABLE TO URINATE [id number] 11/12/2015 13:21:00 11/12/2015 15:45:00 DIS Emergency CHRISTOPHE KENT MD [facility] ER BODY ACHES,HEAD ACHE, SINUS PRESSURE,SORE THROAT [id number] 08/12/2015 19:43:00 08/12/2015 21:11:00 DIS Emergency SIMON RAMIREZ MD [facility] ER FEVER,CHILLS [id number] 08/08/2015 07:04:00 08/10/2015 17:45:00 DIS Inpatient TALA GONZALEZ DO Brandan [facility] LDRP INDUCTION [id number] 07/26/2015 22:44:00 07/26/2015 23:55:00 DIS Outpatient TALA GONZALEZ DO Brandan [facility] WSo LABOR [id number] 07/22/2015 21:26:00 07/22/2015 23:55:00 DIS Outpatient TALA GONZALEZ DO Brandan [facility] WSo CONTRACTIONS [id number] 07/19/2015 12:11:00 07/19/2015 14:40:00 DIS Outpatient LUIS A ARRIOLA MD [facility] WSo CONTRACTIONS RM 315 [id number] 07/08/2015 18:12:00 07/08/2015 22:45:00 DIS Outpatient ZEINAB YUN, LUIS A N [facility] WSo POSS CONTRACTIONS 35 WKS PREG [id number] 06/06/2015 19:49:00 06/06/2015 20:48:00 DIS Outpatient LISA QUINTANA TALA Brandan [facility] WSo ABD PAIN [id number] 01/11/2015 10:23:00 01/11/2015 11:27:00 DIS Emergency JUAN MIGUEL JIMENEZ APRN [facility] ER SYNCOPAL EPISODE 9 WKS PREG [id number] 08/23/2014 13:50:00 08/23/2014 16:05:00 DIS Emergency JENNIFER ROSAS [facility] ER MIGRAINE/NAUSEA [id number] 04/01/2014 08:33:00 04/01/2014 12:10:00 DIS Emergency IONA SWEENEY MD [facility] ER MIGRAINE [id number] 03/10/2014 11:29:00 03/10/2014 12:54:00 DIS Emergency BILLY MIRELES MD [facility] ER UTI SYMPTOMS [id number] 02/20/2014 15:36:00 02/20/2014 16:47:00 DIS Emergency JUAN 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 [facility] ER RASH [id number] 12/03/2013 15:33:00 12/03/2013 16:58:00 DIS Emergency JENNIFER ROSAS [facility] ER UTI SYMPTOMS/ABD PAIN [id number] 11/12/2013 18:25:00 11/12/2013 20:14:00 DIS Emergency 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 [facility]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 [id number] 09/20/2013 20:53:00 09/20/2013 22:28:00 DIS Emergency [id number] 08/22/2013 00:18:00 08/22/2013 00:47:00 DIS Emergency [id number] 07/27/2013 17:52:00 07/27/2013 19:22:00 DIS Emergency JUAN 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
== END 2017-04-17 22:40 | disposition home or self-care (01) ==
LOC: EDUNIT# 19:43 → ER 19:46
DX: N92.0 Excessive and frequent menstruation with regular cycle (principal); N94.6 Dysmenorrhea, unspecified; G43.909 Migraine, unspecified, not intractable, without status migrainosus; K21.9 Gastro-esophageal reflux disease without esophagitis; F41.9 Anxiety disorder, unspecified; F32.9 Major depressive disorder, single episode, unspecified; F43.10 Post-traumatic stress disorder, unspecified; F17.210 Nicotine dependence, cigarettes, uncomplicated; Z90.49 Acquired absence of other specified parts of digestive tract; Z97.5 Presence of (intrauterine) contraceptive device; Z87.448 Personal history of other diseases of urinary system; Z88.0 Allergy status to penicillin; Z88.8 Allergy status to other drugs, medicaments and biological substances
CPT/HCPCS: 36415; 80053; 84703; 85025

== ENCOUNTER 2017-04-22 13:20 | Emergency (ER) | payer MEDICARE, MEDICAID ==
[~2017-04-22] VITALS: Ht 162.6 cm; Wt 54.4 kg
--- NOTE | 2017-04-22 13:31 | ED Upper Extremity ---
General Chief Complaint: Laceration Stated Complaint: LEFT FOREFINGER LAC History of Present Illness Date Seen by Provider: Apr 22, 2017 Time Seen by Provider: 01:25 Initial Comments Patient presented to the ER with complaints of laceration to left index finger from a paring knife. Laceration is superficial and approximately 1 cm in length. Onset: just prior to arrival Severity: mild Pain/Injury Location: left 2nd finger Method of Injury: other Allergies and Home Medications Allergies Coded Allergies: sumatriptan (Unverified Allergy, Severe, ANAPHYLAXIS, 09/20/13) Penicillins (Unverified Allergy, Unknown, 09/20/13) sumatriptan succinate (Verified Adverse Reaction, Mild, 04/01/11) Home Medications Alprazolam 1 Mg Tablet, #90 (Reported) Amitriptyline HCl 25 Mg Tablet, (Reported) Butalb/Acetaminophen/Caffeine 1 Each Tablet, (Reported) Duloxetine HCl 60 Mg Capsule.dr, 60 MG PO, (Reported) Ibuprofen 600 Mg Tablet, 600 MG PO Q6H PRN for PAIN, (Reported) Omeprazole 20 Mg Capsule.dr, #30 (Reported) Ondansetron 4 Mg Tab.rapdis, 4 MG PO Q4H, #10 Prescribed by: YE CARBALLO on 05/07/161922 Topiramate 100 Mg Tablet, #90 (Reported) Constitutional: no symptoms reported EENTM: see HPI, no symptoms reported Respiratory: no symptoms reported, see HPI (no) Cardiovascular: no symptoms reported, see HPI Gastrointestinal: no symptoms reported, see HPI Genitourinary: no symptoms reported, see HPI Musculoskeletal: no symptoms reported, see HPI Skin: other (m) Psychiatric/Neurological: No Symptoms Reported ( with suspected) Past Ccbbwdp-Dupzpe-Yvhroa Hx Patient Social History Type Used: Cigarettes Recent Foreign Travel: No Contact w/Someone Who Travel: No Recent Hopitalizations: No Immunizations Up To Date Tetanus Booster (TDap): Unknown PED Vaccines UTD: Yes Date of Influenza Vaccine: Jan 08, 2013 Seasonal Allergies Seasonal Allergies: No Surgeries History of Surgeries: Yes (SINUS, EXPL LAP, EAR TUBES, perineal tear repair) Surgeries: Abdominal, Appendectomy, Ear Surgery, Eye Surgery Respiratory History of Respiratory Disorde: No Cardiovascular History of Cardiac Disorders: No Neurological History of Neurological Disord: Yes Neurological Disorders: Headaches /Migraines 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 System Hx 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 Disorders: No Female 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 Disorders: Denies 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 History: IUD Genitourinary History of Genitourinary Disor: Yes (interstitial cystitis) Genitourinary Disorders: Bladder Infection Gastrointestinal History of Gastrointestinal Di: Yes Gastrointestinal Disorders: Gastroesophageal Reflux Musculoskeletal History of Musculoskeletal Dis: No Endocrine History of Endocrine Disorders: No HEENT History of HEENT Disorders: No Cancer History of Cancer: No Psychosocial History of Psychiatric Problem: Yes Behavioral Health Disorders: Sleep Difficulties, Anxiety, PTSD, Depression Integumentary History of Skin or Integumenta: No Blood Transfusions History of Blood Disorders: No Adverse Reaction to a Blood Tr: No Family Medical History Significant Family History: No Pertinent Family Hx Family Medial History: FH: bipolar disorder 19 FATHER 19 MOTHER Physical Exam Vital Signs Vital Signs - First Documented 04/22/17 13:27 Temp 97.0 Pulse 92 Resp 18 B/P (MAP) 112/74 (87) Pulse Ox 97 O2 Delivery Room Air Capillary Refill : General Appearance: WD/WN, no apparent distress HEENT: PERRL/EOMI, normal ENT inspection Shoulder: normal inspection, non-tender Elbow/Forearm: normal inspection, non-tender Wrist: Yes normal inspection, Yes non-tender Hand: Left, laceration (left pointer finger approximately 0.5-1 cm superficial laceration.) Neurologic/Tendon: normal sensation, normal motor functions, normal tendon functions 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: alert, normal mood/affect, oriented x 3 Skin: normal color, warm/dry Laceration Repair : Wound Location: Upper Extremities Other Wound Location Left pointer finger Wound Length (cm): 1 Wound's Depth, Shape: superficial Wound Explored: clean (wound was cleaned with Betasept and sterile saline.) Irrigated w/ Saline (ccs): 20 Other Closure Supply: Wound Adhesive Progress Wound was cleaned with sterile saline and chlorhexidine a finger tourniquet was applied and the wound was closed with Dermabond. Progress/Results/Core Measures Results/Orders My Orders Orders - JUAN MIGUEL JIMENEZ APRN Dipht,Pertuss(Acell),Tet Adult (Boostrix (04/22/17 13:45) Medications Given in ED Current Medications Medications Dose Ordered Sig/Janine Route Start Time Stop Time Status Last Admin Dose Admin Diphtheria/ Tetanus/Acell Pertussis 0.5 ml ONCE ONCE IM 04/22/17 13:45 04/22/17 13:46 DC 04/22/17 13:47 0.5 ML Vital Signs/I&O Vital Sign - Last 12Hours 04/22/17 04/22/17 04/22/17 13:27 13:47 13:49 Temp 97.0 97.0 97.0 Pulse 92 92 Resp 18 18 B/P (MAP) 112/74 (87) Pulse Ox 97 97 O2 Delivery Room Air Room Air Departure Impression Impression: Primary Impression: Finger laceration Disposition: HOME, SELF-CARE Condition: Improved Departure-Patient Inst. Decision time for Depature: 13:31 Referrals: GAUDENCIO RAJAN MD (PCP/Family) Primary Care Physician Patient Instructions: Laceration Repair With Glue (DC) Add. Discharge Instructions: Allow the glue to fall of on its own. Do not use ointments such as Neosporin. Watch for signs of infection. All discharge instructions reviewed with patient and/or family. Voiced understanding. JUAN MIGUEL JIMENEZ APRN Apr 22, 2017 13:31
[2017-04-22] MEDS ORDERED: TETANUS,DIPTH,PERTUSS P/F (BOOSTRIX) 0.5 ML VIAL IM ONE (13:45)
[2017-04-22 13:49] VITALS: BP 112/74
== END 2017-04-22 13:49 | disposition home or self-care (01) ==
LOC: EDUNIT# 13:20 → ER 13:22
DX: S61.211A Laceration without foreign body of left index finger without damage to nail, initial encounter (principal); G43.909 Migraine, unspecified, not intractable, without status migrainosus; K21.9 Gastro-esophageal reflux disease without esophagitis; Z97.5 Presence of (intrauterine) contraceptive device; Z87.448 Personal history of other diseases of urinary system; F41.9 Anxiety disorder, unspecified; F43.10 Post-traumatic stress disorder, unspecified; F32.9 Major depressive disorder, single episode, unspecified; Z23 Encounter for immunization; Z88.0 Allergy status to penicillin; Z88.8 Allergy status to other drugs, medicaments and biological substances; Z90.49 Acquired absence of other specified parts of digestive tract; W26.0XXA Contact with knife, initial encounter
CPT/HCPCS: 12001; 90471; 90715

== ENCOUNTER 2017-07-11 20:10 | Emergency (ER) | payer MEDICARE, MEDICAID ==
[~2017-07-11] VITALS: Ht 162.6 cm; Wt 51.3 kg
--- OUTSIDE RECORDS SUMMARY | 2017-07-11 20:15 | XMS REPORT | Encounter Summary ---
Author Author [facility] Organization [facility] Address Unknown Phone Unavailable Care Team Providers Care Technology And Engineering Teacher Name Role Phone Tami Cole MD Unavailable Dillon Simental MD PCP Reason for Visit * Reason Comments Bladder Pain Urinary Frequency Encounter Details Date Type Department Care Team Description 06/05/2017 Office Visit [facility] Guillermo Mae MD Interstitial cystitis Physicians - Urology [address] (Primary Dx); [address] Urinary urgency; [address] [place] [address] Urinary frequency; OFFICE BLDG [phone] [place] [address] Social History Tobacco Use Types Packs/Day Years Used Date Current Every Day Smoker Cigarettes 0.25 4 Smokeless Tobacco: Never Used Alcohol Use Drinks/Week oz/Week Comments No Sex Assigned at Date Recorded Not on file as of this encounter Last Filed Vital Signs Vital Sign Reading Time Taken Blood Pressure 108/71 06/05/2017 1:17 PM CDT Pulse 89 06/05/2017 1:17 PM CDT Temperature - - Respiratory Rate - - Oxygen Saturation - - Inhaled Oxygen - - Concentration Weight 53.5 kg (118 lb) 06/05/2017 1:17 PM CDT Height 162.6 cm (5' 4") 06/05/2017 1:17 PM CDT Body Mass Index 20.25 06/05/2017 1:17 PM CDT in this encounter Progress Notes * Guillermo Mae MD - 06/05/2017 1:45 PM CDT Formatting of this note may be different from the original. Date of Service: 06/05/2017 Subjective: Meli Barros is a 26 y.o. female. History of Present Illness Ms. Barros presents to clinic for followup. History of IC with associated urinary urgency, frequency and some pelvic pain. Last seen 11/25/16. She did not start Elmiron until last month due to issues with insurance coverage and preapprovals. She feels that has really helped with symptoms. Pleased with her results. Not taking amitriptyline or atarax, and not taking levsin. She has no specific diet triggers for symptoms. Past Medical History: Diagnosis Date Anxiety disorder Depression Generalized headaches Sleep disorder Urinary tract infection Past Surgical History: Procedure Laterality Date EAR TUBES 1994 SINUS SURGERY 2004 [place] CYSTOURETHROSCOPY W/DIL BLADDER GENERAL ANESTH N/A 05/21/2016 CYSTOSCOPY, HYDRODISTENSION performed by Guillermo Mae MD at [facility]/ Periop HX APPENDECTOMY Social History Social History Marital status: Single Spouse name: N/A Number of children: N/A Years of education: N/A Occupational History Not on file. Social History Main Topics Smoking status: Current Every Day Smoker Packs/day: 0.25 Years: 4.00 Types: Cigarettes Smokeless tobacco: Never Used Alcohol use No Drug use: No Sexual activity: Not Currently Other Topics Concern Not on file Social History Narrative No narrative on file Family History Problem Relation Age of Onset Stroke Paternal Grandmother Stroke Paternal Grandfather Diabetes Other Hypertension Other Stroke Other Urologic Problems Other Allergies Allergen Reactions Imitrex [Sumatriptan Succinate] ANAPHYLAXIS Pcn [Penicillins] HIVES Treximet [Sumatriptan-Naproxen] SWOLLEN TONGUE Swollen throat Gabapentin SEE COMMENTS Numbness,weakness * Review of Systems Constitutional: Negative for activity change, appetite change, chills, diaphoresis, fatigue, fever and unexpected weight change. HENT: Negative for congestion, hearing loss, mouth sores and sinus pressure. Eyes: Negative for visual disturbance. Respiratory: Negative for apnea, cough, chest tightness and shortness of breath. Cardiovascular: Negative for chest pain, palpitations and leg swelling. Gastrointestinal: Negative for abdominal pain, blood in stool, constipation, diarrhea, nausea, rectal pain and vomiting. Genitourinary: Positive for frequency and urgency. Negative for decreased urine volume, difficulty urinating, dyspareunia, dysuria, enuresis, flank pain, genital sores, hematuria, pelvic pain, vaginal bleeding, vaginal discharge and vaginal pain. Musculoskeletal: Negative for arthralgias, back pain, gait problem and myalgias. Skin: Negative for rash and wound. Neurological: Negative for dizziness, tremors, seizures, syncope, weakness, light-headedness, numbness and headaches. Hematological: Negative for adenopathy. Does not bruise/bleed easily. Psychiatric/Behavioral: Negative for decreased concentration and dysphoric mood. The patient is not nervous/anxious. Objective: ACETAMINOPHEN-CAFFEINE PO Take by mouth. Indications: 50-325-40 mg as directed ALPRAZolam (XANAX) 0.25 mg tablet Take 1 mg by mouth every 8 hours as needed. One-two tabs every 8 hrs if needed DULoxetine DR (CYMBALTA) 60 mg capsule Take 60 mg by mouth daily. hydrOXYzine (ATARAX) 10 mg tablet Take 1 Tab by mouth twice daily. hyoscyamine sulfate (LEVSIN/SL) 0.[address] 1 Tab under tongue every 4 hours as needed for Cramps. Max 1.5 mg/ day intrauterine copper contraceptive (PARAGARD) 380 square mm intrauterine device 1 Intra Uterine Device by Intrauterine route once. omeprazole(+) (PRILOSEC) 10 mg capsule Take 20 mg by mouth daily before breakfast. ondansetron (ZOFRAN) 4 mg tablet Take 4 mg by mouth daily as needed. Sublingual daily pentosan polysulfate sodium (ELMIRON) 100 mg capsule Take 1 capsule by mouth three times daily. Take w/ water 1 hr before or 2 hrs after meals TOPIRAMATE (TOPAMAX PO) Take 300 mg by mouth. Vitals: 06/05/17 1317 BP: 108/71 Pulse: 89 Weight: 53.5 kg (118 lb) Height: 162.6 cm (64") Body mass index is 20.25 kg/m. Physical Exam Constitutional: She is oriented to person, place, and time. She appears well- developed and well-nourished. HENT: Head: Normocephalic and atraumatic. Eyes: EOM are normal. Neck: Normal range of motion. Pulmonary/Chest: Effort normal. No respiratory distress. Musculoskeletal: Normal range of motion. Neurological: She is alert and oriented to person, place, and time. Skin: Skin is warm and dry. Psychiatric: She has a normal mood and affect. Her behavior is normal. Judgment and thought content normal. Vitals reviewed. Assessment and Plan: Ms. Barros presents to clinic for followup. History of IC with associated symptoms. Much improved on Elmiron. Denies any side effects or issues with medication. Continue current therapy and plan for RTC in one year or sooner for problems. History and examination reviewed and wadsworth elements confirmed. Discussed in detail with the patient and questions answered. I personally saw and evaluated the patient and determined the plan of care. Guillermo Mae MD, MPH * in this encounter Plan of Treatment Not on fileas of this encounter Visit Diagnoses Diagnosis Interstitial cystitis - Primary Chronic interstitial cystitis Urinary urgency Urgency of urination Urinary frequency Pelvic pain in female Unspecified symptom associated with female genital organs
--- OUTSIDE RECORDS SUMMARY | 2017-07-11 20:15 | XMS REPORT | Encounter Summary ---
Author Author [facility] Organization [facility] Address Unknown Phone Unavailable Care Team Providers Care Licensed Sales Producer Name Role Phone Tami Cole MD Unavailable Dillon Simental MD PCP Reason for Referral * Radiology Services Status Reason Specialty Diagnoses / Referred By Referred To Procedures Contact Contact New Request Radiology Diagnoses Kobe Muse, Migraine without MD aura, [address] rocedures [place], [place] IR INJECTION [id number] Reason for Visit * Reason Comments Follow Up Encounter Details Date Type Department Care Team Description 07/10/2017 Office Visit [facility] Jeff Pool MD Migraine without aura, Physicians-Neurology [address] intractable (Primary Dx) [facility] [place] [address] [place] [address] Social History Tobacco Use Types Packs/Day Years Used Date Current Every Day Smoker Cigarettes 0.25 4 Smokeless Tobacco: Never Used Alcohol Use Drinks/Week oz/Week Comments No Sex Assigned at Date Recorded Not on file as of this encounter Last Filed Vital Signs Vital Sign Reading Time Taken Blood Pressure 122/87 07/10/2017 10:28 AM CDT Pulse 74 07/10/2017 10:28 AM CDT Temperature - - Respiratory Rate 16 07/10/2017 10:28 AM CDT Oxygen Saturation - - Inhaled Oxygen - - Concentration Weight 51.5 kg (113 lb 8 oz) 07/10/2017 10:28 AM CDT Height 162.6 cm (5' 4") 07/10/2017 10:28 AM CDT Body Mass Index 19.48 07/10/2017 10:28 AM CDT in this encounter Instructions * Patient Instructions - Jeff Pool MD - 07/10/2017 11:00 AM CDT We have referred you for sphenocath. We will start riboflavin and recommend considering butterbur. For strategies for controlling your headaches, consider looking at www.headachereliefguide.com We will see you back in 4 months in this encounter Progress Notes * Kobe Muse MD - 07/10/2017 11:00 AM CDT Pt seen, examined and discussed with Dr. Pool. I agree with his hx, findings, impressions and plan. * Jeff Pool MD - 07/10/2017 11:00 AM CDT Formatting of this note may be different from the original. Date of Service: 07/10/2017 Subjective: Meli Barros is a 27 y.o. female. She currently takes esgic prn and topiramate for her headaches. She is still on cymbalta. She felt too tired on amitriptyline because she could not wake during the night to take care of her 2 year old son. She thinks she took it for weeks and it didn't help with headaches. Headaches are about the same. She had 20 headache days last month. Most of these are her full severe migraines. She takes her esgic 2-3x a week for more severe headaches. She does feel this is better than before she was on topiramate. She takes ibuprofen every day 2 tablets in the morning. She wakes with her headache severe and it also gets worse later in the day and she takes more ibuprofen. She has been doing this for 2 weeks. Her mood is poor which she attributes to her headaches. She feels it is worse since her grandfather in January. No SI. She tried botox and occipital nerve block which did not work. Triptan caused her throat to close. She has not tried sphenocath. She sees a psychologist regularly but does not currently see a psychiatrist. She does feel the psychologist helped with her headaches. History of Present Illness Social History Social History Marital status: Single [...] Social History Narrative No narrative on file Past Medical History: Diagnosis Date Anxiety disorder Depression Generalized headaches Sleep disorder Urinary tract infection Past Surgical History: Procedure Laterality Date EAR TUBES 1995 SINUS SURGERY 2004 [place] CYSTOURETHROSCOPY W/DIL BLADDER GENERAL ANESTH N/A 05/21/2016 CYSTOSCOPY, HYDRODISTENSION performed by Guillermo Mae MD at [facility]/ Periop HX APPENDECTOMY Family History Problem Relation Age of Onset Stroke Paternal Grandmother Stroke Paternal Grandfather Diabetes Other Hypertension Other Stroke Other Urologic Problems Other Review of Systems Constitutional: Positive for fatigue. Musculoskeletal: Positive for back pain and neck pain. Psychiatric/Behavioral: The patient is nervous/anxious. All other systems reviewed and are negative. Objective: ACETAMINOPHEN-CAFFEINE PO Take by mouth. Indications: 50-325-40 mg as directed ALPRAZolam (XANAX) 0.25 mg tablet Take 1 mg by mouth every 8 hours as needed. One-two tabs every 8 hrs if needed DULoxetine DR (CYMBALTA) 60 mg capsule Take 60 mg by mouth daily. intrauterine copper contraceptive (PARAGARD) 380 square mm [...] PO) Take 300 mg by mouth. Vitals: 07/10/17 1028 BP: 122/87 Pulse: 74 Resp: 16 Weight: 51.5 kg (113 lb 8 oz) Height: 162.6 cm (64") Body mass index is 19.48 kg/m. Physical Exam Neurological Exam MS: A&Ox4 Speech: Fluent, intact comprehension and repetition. CN: EOMI, PERRL, tongue midline, facial sensation normal, visual candelaria full, good shoulder shrug. Motor: R Side 5/5 in the SAb, EF, FF, FE, WF, WE. 5/5 in HF, KF, KE, DF, PF. L Side 5/5 in the SAb, EF, FF, FE, WF, WE. 5/5 in HF, KF, KE, DF, PF. Sensory: Intact to light touch in all extremities. Cerebellar: No ataxia Gait: Normal base, good arm swing. Romberg negative. Assessment and Plan: 27 yof seen for migraines which have been refractory to therapy with component of depression - Referral for sphenocath - Discussed talking with her psychologist about follow-up with psychiatry for depression as she would like to do this in [place] - Continue topiramate 200 bID - Discussed avoiding taking pain medication more than half the days of the week due to rebound headaches - She will try riboflavin and butterbur - We discussed keeping a diary of her headaches to get a better idea of triggers and time of day. RTC 4 months Patient seen and discussed with Dr. Micha Pool MD PGY3 Neurology in this encounter Plan of Treatment Name Priority Associated Diagnoses Order Schedule IR INJECTION Routine Migraine without aura, Expected: 07/10/2017 intractable (Approximate), Expires: 07/10/2018 as of this encounter Visit Diagnoses Diagnosis Migraine without aura, intractable - Primary Migraine without aura, with intractable migraine, so stated, without mention of status migrainosus
--- OUTSIDE RECORDS SUMMARY | 2017-07-11 20:15 | XMS REPORT | Clinical Summary ---
Author Author [facility] Organization [facility] Address Unknown Phone Unavailable Care Team Providers Care Multilith Operator Name Role Phone Tami Cole MD Unavailable Dillon Simental MD PCP Source Comments Some departments are not documenting in the electronic medical record. If you do not see the information that you expected, contact Release of Information in the Health Information Management department at [phone] for further assistance in locating additional records.[facility] Allergies Active Allergy Reactions Severity Noted [...] One-two tabs every 8 hrs if needed omeprazole(+) (PRILOSEC) Take 20 mg by mouth daily Active 10 mg capsule before breakfast. TOPIRAMATE (TOPAMAX PO) Take 300 mg by mouth. Active ACETAMINOPHEN-CAFFEINE Take by mouth. Active POIndications: 50-325-40 Indications: 50-325-40 mg mg as directed as directed intrauterine copper 1 Intra Uterine Device by Active contraceptive (PARAGARD) Intrauterine route once. 380 square mm intrauterine device pentosan polysulfate Take 1 capsule by mouth 270 capsule 3 06/06/19 Active sodium (ELMIRON) 100 mg three times daily. Take 18 capsuleIndications: w/ water 1 hr before or 2 Interstitial cystitis hrs after meals riboflavin (vitamin B2) Take 1 tablet by mouth 90 tablet 3 07/11/19 Active 400 mg tab daily. 18 Active Problems Problem Noted Date Interstitial cystitis [...] from ER recently ~ request sent to [place] Continue Atarax Continue Amitriptyline Continue Levsin PRN [...] Encounters Date Type Specialty Care Team Description 07/10/2017 Office Visit Neurology Jeff Pool MD Migraine without aura, intractable (Primary Dx) 06/05/2017 Office Visit Urology Guillermo Mae MD Interstitial cystitis (Primary Dx); Urinary urgency; Urinary frequency; Pelvic pain in female from Last 3 Months Family History Medical [...] Pulse 74 07/10/2017 10:28 AM CDT Temperature 36.9 C (98.4 F) 05/21/2016 3:00 PM CDT Respiratory Rate 16 07/10/2017 10:28 AM CDT Oxygen Saturation 100% 05/21/2016 3:00 PM CDT Inhaled Oxygen - - Concentration Weight 51.5 kg (113 lb 8 oz) 07/10/2017 10:28 AM CDT Height 162.6 cm (5' 4") 07/10/2017 10:28 AM CDT Body Mass Index 19.48 07/10/2017 10:28 AM CDT Plan of Treatment Health Maintenance Due Date Last Done Comments PHYSICAL (COMPREHENSIVE) 06/19/1999 EXAM HPV VACCINES (1 of 3 - 06/19/2003 Female 3 Dose Series) PERTUSSIS VACCINE 06/19/2003 HIV SCREENING 06/19/2007 TETANUS VACCINE 2009 CERVICAL CANCER SCREENING 2013 INFLUENZA VACCINE 12/08/2017 01/20/2008, 01/11/2005, 12/29/2003 Results Not on filefrom Last 3 Months
--- OUTSIDE RECORDS SUMMARY | 2017-07-11 20:15 | XMS REPORT | Continuity of Care Document ---
Author Author [facility] Organization [facility] Address Unknown Phone Unavailable Care Team Providers Care Stratigrapher Name Role Phone [employer] Unavailable Unavailable Problems Medications Allergies, Adverse Reactions, Alerts Immunizations Results Vital Signs Encounters Location Location Details Encounter Type Encounter Number Reason For Visit Attending Provider ADM Date DC Date Status Source OUTPATIENT [id number] LASHA RAMÍREZ 05/13/20162016 Active [facility] OUTPATIENT [id number] JOSÉ LUIS MAK 02/13/2017 Active [facility] OUTPATIENT [id number] JOSÉ LUIS MAK 07/10/2017 07/10/2017 Active [facility] O JOSÉ LUIS MAK 11/13/2017 Active [facility] Procedures Plan of Care Social History Assessment and Plan Family History Advance Directives Functional Status
--- OUTSIDE RECORDS SUMMARY | 2017-07-11 20:25 | XMS REPORT | Continuity of Care Document ---
Author Author [facility] Address Unknown Phone Unavailable Allergies Active Description Code Type Severity Reaction Onset Reported/Identified Relationship to Patient Clinical Status Yes naproxen sodium [id number] Drug Allergy Mild N/A 04/01/2011 Yes sumatriptan succinate [id number] Drug Allergy Mild N/A 04/01/2011 Yes Penicillins Drug Allergy 07/02/2011 Yes Treximet Drug Allergy 07/02/2011 Yes sumatriptan [id number] Drug Allergy Severe ANAPHYLAXIS 09/20/2013 Yes Penicillins [id number] Drug Allergy Unknown N/A 09/20/2013 Medications There [...] MIGRAINE UNSPECIFIED W/O INTRACT MGRN W08/23/2014 JENNIFER ORSAS Ot 346.90 MIGRAINE UNSPECIFIED W/O INTRACT MGRN [...] Roy Ot R30.0 DYSURIA 12/30/2015 BRYCE, STACEY STOCKROOM HELPER Ot F17.210 NICOTINE DEPENDENCE, CIGARETTES, UNCOMPL 12/30/2015 BRYCE, STACEY STOCKROOM HELPER Ot G43.909 MIGRAINE, UNSP, NOT INTRACTABLE, WITHOUT 12/30/2015 BRYCE, STACEY STOCKROOM HELPER Ot R51 HEADACHE 12/30/2015 BRYCE, STACEY STOCKROOM HELPER Ot Z79.899 OTHER ADMINISTRATIVE PERSONAL ASSISTANT (CURRENT) DRUG THERAPY 01/01/2016 BRYCE, STACEY STOCKROOM HELPER Ot F17.210 NICOTINE DEPENDENCE, CIGARETTES, UNCOMPL 01/01/2016 BRYCE, STACEY STOCKROOM HELPER Ot G43.909 MIGRAINE, UNSP, NOT INTRACTABLE, WITHOUT 01/01/2016 BRYCE, STACEY STOCKROOM HELPER Ot R51 HEADACHE 01/01/2016 BRYCE, STACEY STOCKROOM HELPER Ot Z79.899 OTHER HALFWAY (CURRENT) DRUG THERAPY 02/29/2016 JUAN MIGUEL JIMENEZ CLAMP REMOVER Ot R51 HEADACHE 03/01/2016 JUAN MIGUEL JIMENEZ CLAMP REMOVER Ot R51 HEADACHE 03/15/2016 JUAN MIGUEL JIMENEZ CLAMP REMOVER Ot G43.909 MIGRAINE, UNSP, NOT INTRACTABLE, WITHOUT 03/15/2016 JUAN MIGUEL JIMENEZ CLAMP REMOVER Ot R51 HEADACHE 03/17/2016 TENZIN YUN, FADI Bennett Ot F17.210 NICOTINE DEPENDENCE, CIGARETTES, UNCOMPL 03/17/2016 TENZIN YUN, FADI Bennett Ot G43.909 MIGRAINE, UNSP, NOT INTRACTABLE, WITHOUT 03/18/2016 JUAN MIGUEL JIMENEZ CLAMP REMOVER Ot G43.909 MIGRAINE, UNSP, NOT INTRACTABLE, WITHOUT 03/18/2016 JUAN MIGUEL JIMENEZ APRN Ot R51 HEADACHE 03/18/2016 TENZIN YUN, FADI Bennett Ot F17.210 NICOTINE DEPENDENCE, CIGARETTES, UNCOMPL 03/18/2016 TENZIN YUN, FADI Bennett Ot G43.909 MIGRAINE, UNSP, NOT INTRACTABLE, WITHOUT 03/20/2016 Saurav Yesica A 668.81 OTHER COMPLICATIONS OF ANESTHESIA OR OTHER SEDATION IN LABOR AND DELIVERY, DELIVERED, WITH OR WITHOUT MENTION OF ANTEPARTUM CONDITION 03/20/2016 Didier Mgssjarret Valdes R51 HEADACHE 03/26/2016 JENNIFER ROSAS Ot F17.210 NICOTINE DEPENDENCE, CIGARETTES, UNCOMPL 03/26/2016 JENNIFER ROSAS Ot G43.909 MIGRAINE, UNSP, NOT INTRACTABLE, WITHOUT 03/27/2016 JENNIFER ROSAS Ot F17.210 NICOTINE DEPENDENCE, CIGARETTES, UNCOMPL 03/27/2016 JENNIFER ROSAS Ot G43.909 MIGRAINE, UNSP, NOT INTRACTABLE, WITHOUT 03/28/2016 JENNIFER ROSAS Ot F17.210 NICOTINE DEPENDENCE, CIGARETTES, UNCOMPL 03/28/2016 JENNIFER ROSAS Ot G43.909 MIGRAINE, UNSP, NOT INTRACTABLE, WITHOUT 03/29/2016 DONTE YUN, CHRISTOPHE T Ot F17.210 NICOTINE DEPENDENCE, CIGARETTES, UNCOMPL 03/29/2016 DONTE YUN, CHRISTOPHE Madsen Ot R07.81 PLEURODYNIA 03/29/2016 DONTE YUN, CHRISTOPHE T Ot R07.89 OTHER CHEST PAIN 03/29/2016 DONTE YUN, CHRISTOPHE T Ot Z79.899 OTHER HALFWAY (CURRENT) DRUG THERAPY 04/01/2016 CHRISTOPHE KENT MD T Ot F17.210 NICOTINE DEPENDENCE, CIGARETTES, UNCOMPL 04/01/2016 CHRISTOPHE KENT MD Ot R07.81 PLEURODYNIA 04/01/2016 DONTE YUN, CHRISTOPHE T Ot R07.89 OTHER CHEST PAIN 04/01/2016 CHRISTOPHE KENT MD T Ot Z79.899 OTHER HALFWAY (CURRENT) DRUG THERAPY 04/04/2016 JOCELYNE VILLALOBOS MD Ot G43.019 MIGRAINE W/O AURA, INTRACTABLE, WITHOUT 04/05/2016 JENNIFER ROSAS Ot F17.210 NICOTINE DEPENDENCE, CIGARETTES, UNCOMPL 04/05/2016 JENNIFER ROSAS Ot G43.909 MIGRAINE, UNSP, NOT INTRACTABLE, WITHOUT 04/05/2016 DONTE YUN, CHRISTOPHE Madsen Ot F17.210 NICOTINE DEPENDENCE, CIGARETTES, UNCOMPL 04/05/2016 DONTE YUN, CHRISTOPHE Madsen Ot R07.81 PLEURODYNIA 04/05/2016 DONTE YUN, CHRISTOPHE T Ot R07.89 OTHER CHEST PAIN 04/05/2016 DONTE YUN, CHRISTOPHE Madsen Ot Z79.899 OTHER ADMINISTRATIVE PERSONAL ASSISTANT (CURRENT) DRUG THERAPY 04/24/2016 JOCELYNE VILLALOBOS MD K Ot G43.019 MIGRAINE W/O AURA, INTRACTABLE, WITHOUT 05/06/2016 JOCELYNE VILLALOBOS MD K Ot G43.019 MIGRAINE W/O AURA, INTRACTABLE, [...] G43.909 MIGRAINE, UNSP, NOT INTRACTABLE, WITHOUT 05/31/2016 SIMON RAMIREZ MD Ot G43.909 MIGRAINE, UNSP, NOT INTRACTABLE, WITHOUT 05/31/2016 ASHLEY YUN, SIMON A Ot R51 HEADACHE 05/31/2016 ASHLEY YUN, SIMON A Ot Z79.899 OTHER HALFWAY (CURRENT) DRUG THERAPY 05/31/2016 ASHLEY YUN, SIMON Valdes Ot G43.909 MIGRAINE, UNSP, NOT INTRACTABLE, WITHOUT 05/31/2016 ASHLEY YUN, SIMON Valdes Ot R51 HEADACHE 05/31/2016 ASHLEY YUN, SIMON A Ot Z79.899 OTHER HALFWAY (CURRENT) DRUG THERAPY 06/22/2016 JUAN MIGUEL JIMENEZ APRN Ot G43.909 MIGRAINE, UNSP, NOT INTRACTABLE, WITHOUT 06/22/2016 JUAN MIGUEL JIMENEZ CLAMP REMOVER Ot Z79.899 OTHER ADMINISTRATIVE PERSONAL ASSISTANT (CURRENT) DRUG THERAPY 07/01/2016 BILLY MIRELES MD Ot G43.909 MIGRAINE, UNSP, NOT INTRACTABLE, WITHOUT 07/01/2016 BILLY MIRELES MD Ot Z79.899 OTHER ADMINISTRATIVE PERSONAL ASSISTANT (CURRENT) DRUG THERAPY 07/02/2016 BILLY MIRELES MD Ot G43.909 MIGRAINE, UNSP, NOT INTRACTABLE, WITHOUT 07/02/2016 BILLY MIRELES MD Ot Z79.899 OTHER HALFWAY (CURRENT) DRUG THERAPY 07/03/2016 BILLY MIRELES MD Ot G43.909 MIGRAINE, UNSP, NOT INTRACTABLE, WITHOUT 07/03/2016 BILLY MIRELES MD Ot Z79.899 OTHER HALFWAY (CURRENT) DRUG THERAPY 07/06/2016 JENNIFER ROSAS Ot F17.210 NICOTINE DEPENDENCE, CIGARETTES, UNCOMPL 07/06/2016 JENNIFER ROSAS Ot G43.909 MIGRAINE, UNSP, NOT INTRACTABLE, WITHOUT 07/06/2016 JENNIFER ROSAS Ot Z79.899 OTHER HALFWAY (CURRENT) DRUG THERAPY 07/07/2016 JENNIFER ROSAS Ot F17.210 NICOTINE DEPENDENCE, CIGARETTES, UNCOMPL 07/07/2016 JENNIFER ROSAS Ot G43.909 MIGRAINE, UNSP, NOT INTRACTABLE, WITHOUT 07/07/2016 JENNIFER ROSAS Ot Z79.899 OTHER ADMINISTRATIVE PERSONAL ASSISTANT (CURRENT) DRUG THERAPY 09/27/2016 TENZIN YUN, FADI Bennett Ot F17.210 NICOTINE DEPENDENCE, CIGARETTES, UNCOMPL 09/27/2016 TENZIN YUN, FADI Bennett Ot F32.9 MAJOR DEPRESSIVE DISORDER, SINGLE EPISOD 09/27/2016 TENZIN YUN, FADI Bennett Ot F41.9 ANXIETY DISORDER, UNSPECIFIED 09/27/2016 TENZIN YUN, FADI Bennett Ot F43.10 POST-TRAUMATIC STRESS DISORDER, UNSPECIF 09/27/2016 TENZIN YUN, FADI Bennett Ot G43.909 MIGRAINE, [...] ACQUIRED ABSENCE OF OTHER SPECIFIED PART 11/11/2016 JAMES CARBALLO DOA Shahid Ot F17.210 NICOTINE DEPENDENCE, CIGARETTES, UNCOMPL 11/11/2016 JAMES CARBALLO DOA Shahid Ot F32.9 MAJOR DEPRESSIVE DISORDER, SINGLE EPISOD 11/11/2016 YE CARBALLO DO Ot F41.9 ANXIETY DISORDER, UNSPECIFIED 11/11/2016 YE CARBALLO DO Ot F43.10 POST-TRAUMATIC STRESS DISORDER, UNSPECIF 11/11/2016 KAIT JAMES QUINTANAA K Ot G43.909 MIGRAINE, UNSP, NOT INTRACTABLE, WITHOUT 11/11/2016 YE CARBALLO DO Ot K21.9 GASTRO-ESOPHAGEAL REFLUX DISEASE WITHOUT 11/11/2016 YE CARBALLO DO Ot N39.0 URINARY TRACT INFECTION, SITE NOT SPECIF 11/11/2016 YE CARBALLO DO Ot R30.0 DYSURIA 11/11/2016 YE CARBALLO DO Ot Z87.448 PERSONAL HISTORY OF OTHER DISEASES OF UR 11/11/2016 YE CARBALLO DO Ot Z90.49 ACQUIRED ABSENCE OF OTHER SPECIFIED PART 11/13/2016 KAIT , YE K Ot F17.210 NICOTINE DEPENDENCE, CIGARETTES, UNCOMPL 11/13/2016 YE CARBALLO DO Ot F32.9 MAJOR DEPRESSIVE DISORDER, SINGLE EPISOD 11/13/2016 YE CARBALLO DO Ot F41.9 ANXIETY DISORDER, UNSPECIFIED 11/13/2016 KAIT YE QUINTANA Ot F43.10 POST-TRAUMATIC STRESS DISORDER, UNSPECIF 11/13/2016 KAIT , YE Key Ot G43.909 MIGRAINE, UNSP, NOT INTRACTABLE, WITHOUT 11/13/2016 KAIT , YE Shahid Ot K21.9 GASTRO-ESOPHAGEAL REFLUX DISEASE WITHOUT 11/13/2016 KAIT YE QUINTANA Ot N39.0 URINARY TRACT INFECTION, SITE NOT SPECIF 11/13/2016 YE CARBALLO DO Ot R30.0 DYSURIA 11/13/2016 KAIT YE QUINTANA Ot Z87.448 PERSONAL HISTORY OF OTHER DISEASES OF UR 11/13/2016 YE CARBALLO DO Ot Z90.49 ACQUIRED ABSENCE OF OTHER SPECIFIED [...] GASTRO-ESOPHAGEAL REFLUX DISEASE WITHOUT 01/09/2017 TENZIN YUN, AFDI Bennett Ot Z87.448 PERSONAL HISTORY OF OTHER DISEASES OF UR 01/09/2017 TENZIN YUN, FADI Bennett Ot Z90.49 ACQUIRED ABSENCE OF OTHER SPECIFIED PART 01/27/2017 ALINE YUN, BILLY Roy Ot B37.3 CANDIDIASIS OF VULVA AND VAGINA [...] SPECIFIED PART 02/01/2017 ROBERT LI MD Ot Z97.5 PRESENCE OF (INTRAUTERINE) CONTRACEPTIVE 03/27/2017 KAIT JAMES QUINTANAA K Ot G43.909 MIGRAINE, UNSP, NOT INTRACTABLE, WITHOUT 03/31/2017 KAIT DO YE K Ot G43.909 MIGRAINE, UNSP, NOT INTRACTABLE, WITHOUT 04/17/2017 CHRISTOPHE KENT MD Ot F17.210 NICOTINE DEPENDENCE, CIGARETTES, UNCOMPL 04/17/2017 CHRISTOPHE KENT MD Ot F32.9 MAJOR DEPRESSIVE DISORDER, SINGLE EPISOD 04/17/2017 CHRISTOPHE KENT MD, Ot F41.9 ANXIETY DISORDER, UNSPECIFIED 04/17/2017 CHRISTOPHE KENT MD, Ot F43.10 POST-TRAUMATIC STRESS DISORDER, UNSPECIF 04/17/2017 CHRISTOPHE KENT MD Ot G43.909 MIGRAINE, UNSP, NOT INTRACTABLE, WITHOUT 04/17/2017 CHRISTOPHE KENT MD Ot K21.9 GASTRO-ESOPHAGEAL REFLUX DISEASE WITHOUT 04/17/2017 CHRISTOPHE KENT MD Ot N92.0 EXCESSIVE AND FREQUENT MENSTRUATION WITH 04/17/2017 CHRISTOPHE KENT MD Ot N93.9 ABNORMAL UTERINE AND VAGINAL BLEEDING, U 04/17/2017 CHRISTOPHE KENT MD, Ot N94.6 DYSMENORRHEA, UNSPECIFIED 04/17/2017 CHRISTOPHE KENT MD Ot Z87.448 PERSONAL HISTORY OF OTHER DISEASES OF UR 04/17/2017 CHRISTOPHE KENT MD, Ot Z88.0 ALLERGY STATUS TO PENICILLIN 04/17/2017 CHRISTOPHE KENT MD, Ot Z88.8 ALLERGY STATUS TO OTH DRUG/MEDS/BIOL SUB 04/17/2017 CHRISTOPHE KENT MD Ot Z90.49 ACQUIRED ABSENCE OF OTHER SPECIFIED PART 04/17/2017 CHRISTOPHE KENT MD Ot Z97.5 PRESENCE OF (INTRAUTERINE) CONTRACEPTIVE 04/22/2017 JUAN MIGUEL JIMENEZ APRN Ot F32.9 MAJOR DEPRESSIVE DISORDER, SINGLE EPISOD 04/22/2017 JUAN MIGUEL JIMENEZ APRN Ot F41.9 ANXIETY DISORDER, UNSPECIFIED 04/22/2017 JUAN MIGUEL JIMENEZ APRN Ot F43.10 POST-TRAUMATIC STRESS DISORDER, UNSPECIF 04/22/2017 JUAN MIGUEL JIMENEZ APRN Ot G43.909 MIGRAINE, UNSP, NOT INTRACTABLE, WITHOUT 04/22/2017 JUAN MIGUEL JIMENEZ APRN Ot K21.9 GASTRO-ESOPHAGEAL REFLUX DISEASE WITHOUT 04/22/2017 JUAN MIGUEL JIMENEZ APRN Ot S61.211A LACERATION W/O FB OF L IDX FNGR W/O ROBERT 04/22/2017 JUAN MIGUEL JIMENEZ APRN Ot W26.0XXA CONTACT WITH KNIFE, INITIAL ENCOUNTER 04/22/2017 JUAN MIGUEL JIMENEZ APRN Ot Z23 ENCOUNTER FOR IMMUNIZATION 04/22/2017 JUAN MIGUEL JIMENEZ APRN Ot Z87.448 PERSONAL HISTORY OF OTHER DISEASES OF UR 04/22/2017 JUAN MIGUEL JIMENEZ APRN Ot Z88.0 ALLERGY STATUS TO PENICILLIN 04/22/2017 JUAN MIGUEL JIMENEZ APRN Ot Z88.8 ALLERGY STATUS TO OTH DRUG/MEDS/BIOL SUB 04/22/2017 JUAN MIGUEL JIMENEZ APRN Ot Z90.49 ACQUIRED ABSENCE OF OTHER SPECIFIED PART 04/22/2017 JUAN MIGUEL JIMENEZ APRN Ot Z97.5 PRESENCE OF (INTRAUTERINE) CONTRACEPTIVE 04/24/2017 JUAN MIGUEL JIMENEZ APRN Ot F32.9 MAJOR DEPRESSIVE DISORDER, SINGLE EPISOD 04/24/2017 JUAN MIGUEL JIMENEZ APRN Ot F41.9 ANXIETY DISORDER, UNSPECIFIED 04/24/2017 JUAN MIGUEL JIMENEZ APRN Ot F43.10 POST-TRAUMATIC STRESS DISORDER, UNSPECIF 04/24/2017 JUAN MIGUEL JIMENEZ APRN Ot G43.909 MIGRAINE, UNSP, NOT INTRACTABLE, WITHOUT 04/24/2017 JUAN MIGUEL JIMENEZ APRN Ot K21.9 GASTRO-ESOPHAGEAL REFLUX DISEASE WITHOUT 04/24/2017 JUAN MIGUEL JIMENEZ APRN Ot S61.211A LACERATION W/O FB OF L IDX FNGR W/O ROBERT 04/24/2017 JUAN MIGUEL JIMENEZ APRN Ot W26.0XXA CONTACT WITH KNIFE, INITIAL ENCOUNTER 04/24/2017 JUAN MIGUEL JIMENEZ APRN Ot Z23 ENCOUNTER FOR IMMUNIZATION 04/24/2017 JUAN MIGUEL JIMENEZ APRN Ot Z87.448 PERSONAL HISTORY OF OTHER DISEASES OF UR 04/24/2017 JUAN MIGUEL JIMENEZ APRN Ot Z88.0 ALLERGY STATUS TO PENICILLIN 04/24/2017 JUAN MIGUEL JIMENEZ APRN Ot Z88.8 ALLERGY STATUS TO OTH DRUG/MEDS/BIOL SUB 04/24/2017 JUAN MIGUEL JIMENEZ APRN Ot Z90.49 ACQUIRED ABSENCE OF OTHER SPECIFIED PART 04/24/2017 JUAN MIGUEL JIMENEZ APRN Ot Z97.5 PRESENCE OF (INTRAUTERINE) CONTRACEPTIVE Procedures Code Description Performed By Performed On [id number] REPAIR ANAL SPHINCTER, OPEN APPROACH 08/08/2015 [id number] INTRODUCE OTH THERAP SUBST IN PERIPH VEI [...] culture - 11/12/15 14:19 Bacterial urine culture [id number] NRG COLONY COUNT >100,000/ML NRG URINE CULTURE [...] culture - 11/11/16 19:42 Bacterial urine culture [id number] NRG COLONY COUNT <10,000 NRG FTX;REPORTABLE PLUS, [...] Status Pt. Type Provider Facility Loc./Unit Complaint [id number] 12/05/2011 11:38:00 12/05/2011 23:59:59 CLS Outpatient URIEL BENITEZ APRN [id number] 12/05/2011 11:38:00 12/05/2011 23:59:59 CLS Outpatient [id number] 08/23/2014 13:51:26 ACT Document Registration [id number] 04/22/2017 13:22:00 04/22/2017 13:49:00 DIS Emergency JUAN MIGUEL JIMENEZ APRN [facility] ER LEFT FOREFINGER LAC [id number] 04/17/2017 19:46:00 04/17/2017 22:40:00 DIS Emergency CHRISTOPHE KENT MD [facility] ER HEAVY VAGINAL BLEEDING , FAINT [id number] 03/27/2017 12:04:00 03/27/2017 13:40:00 DIS Emergency YE CARBALLO DO [facility] ER MIGRAINES [id number] 02/01/2017 11:28:00 02/01/2017 13:00:00 DIS Emergency ROBERT LI MD [facility] ER MIGRANE [id number] 01/27/2017 21:36:00 01/27/2017 23:35:00 DIS Emergency BILLY MIRELES MD [facility] ER POSS UTI/YEAST INFECTION/ABD AND BACK PAIN [id number] 01/09/2017 17:24:00 01/09/2017 18:09:00 DIS Emergency FADI DAVE MD [facility] ER MIGRAINE [id number] 11/11/2016 19:36:00 11/11/2016 20:26:00 DIS Emergency YE CARBALLO DO [facility] ER POSS UTI [id number] 09/27/2016 09:09:00 09/27/2016 09:40:00 DIS Emergency FADI DAVE MD [facility] ER MIGRAINE [id number] 07/06/2016 12:57:00 07/06/2016 14:30:00 DIS Emergency JENNIFER ROSAS [facility] ER MIGRAINE [id number] 07/01/2016 19:46:00 07/01/2016 21:12:00 DIS Emergency BILLY MIRELES MD [facility] ER MIGRAINE [id number] 06/22/2016 20:55:00 06/22/2016 23:37:00 DIS Emergency JUAN MIGUEL JIMENEZ CLAMP REMOVER [facility] ER MIGRAINE [id number] 05/31/2016 09:52:00 05/31/2016 11:26:00 DIS Emergency SIMON RAMIREZ MD [facility] ER MIGRAINE [id number] 05/27/2016 18:53:00 05/27/2016 21:07:00 DIS Emergency JENNIFER ROSAS [facility] ER MIGRAINE [id number] 05/07/2016 19:02:00 05/07/2016 20:29:00 DIS Emergency YE CARBALLO DO K [facility] ER MIGRAINE [id number] 04/03/2016 13:46:00 04/03/2016 23:59:59 CLS Outpatient WILFREDO YUN, JOCELYNE Key [facility] LAB MIGRAINE HEADACHE [id number] 03/29/2016 00:14:00 03/29/2016 01:44:00 DIS Emergency CHRISTOPHE KENT MD [facility] ER CP [id number] 03/26/2016 17:51:00 03/26/2016 21:11:00 DIS Emergency JENNIFER ROSAS [facility] ER MIGRAINE [id number] 03/17/2016 11:25:00 03/17/2016 13:12:00 DIS Emergency TENZIN YUN, FADI Bennett [facility] ER MIGRAINE [id number] 03/15/2016 17:36:00 03/15/2016 18:31:00 DIS Emergency JUAN MIGUEL JIMENEZ CLAMP REMOVER [facility] ER MIGRAINE [id number] 02/29/2016 20:24:00 02/29/2016 21:25:00 DIS Emergency JUAN MIGUEL JIMENEZ CLAMP REMOVER [facility] ER MIGRAINE [id number] 12/30/2015 19:16:00 12/30/2015 21:08:00 DIS Emergency STACEY WU [facility] ER MIGRAINE [id number] 11/29/2015 10:15:00 11/29/2015 13:39:00 DIS Emergency ALINE YUN, BILLY Roy [facility] ER UNABLE TO URINATE [id number] 11/12/2015 13:21:00 11/12/2015 15:45:00 DIS Emergency DONTE YUN, CHRISTOPHE Madsen [facility] ER BODY ACHES,HEAD ACHE, SINUS PRESSURE,SORE THROAT [id number] 08/12/2015 19:43:00 08/12/2015 21:11:00 DIS Emergency ASHLEY YUN, SIMON Valdes [facility] ER FEVER,CHILLS [id number] 08/08/2015 07:04:00 08/10/2015 17:45:00 DIS Inpatient TALA GONZALEZ DO [facility] LDRP INDUCTION [id number] 07/26/2015 22:44:00 07/26/2015 23:55:00 DIS Outpatient [facility]ALEZ DO [facility] LABOR [id number] 07/22/2015 21:26:00 07/22/2015 23:55:00 DIS Outpatient TALA GONZALEZ DO [facility] WSo CONTRACTIONS [id number] 07/19/2015 12:11:00 07/19/2015 14:40:00 DIS Outpatient LUIS A ARRIOLA MD [facility] CONTRACTIONS RM 315 [id number] 07/08/2015 18:12:00 07/08/2015 22:45:00 DIS Outpatient LUIS A ARRIOLA MD [facility] POSS CONTRACTIONS 35 WKS PREG [id number] 06/06/2015 19:49:00 06/06/2015 20:48:00 DIS Outpatient TALA GONZALEZ DO [facility] ABD PAIN [id number] 01/11/2015 10:23:00 01/11/2015 11:27:00 DIS Emergency JUAN MIGUEL JIMENEZ APRN [facility] ER SYNCOPAL EPISODE 9 WKS PREG [id number] 08/23/2014 13:50:00 08/23/2014 16:05:00 DIS Emergency JENNIFER ROSAS [facility] ER MIGRAINE/NAUSEA [id number] 04/01/2014 08:33:00 04/01/2014 12:10:00 DIS Emergency IONA SWEENEY MD [facility] ER MIGRAINE [id number] 03/10/2014 11:29:00 03/10/2014 12:54:00 DIS Emergency BILLY MIRELES MD [facility] ER UTI SYMPTOMS [id number] 02/20/2014 15:36:00 02/20/2014 16:47:00 DIS Emergency JUAN MIGUEL JIMENEZ APRN [facility] ER RASH [id number] 12/03/2013 15:33:00 12/03/2013 16:58:00 DIS Emergency JENNIFER ROSAS [facility] ER UTI SYMPTOMS/ABD PAIN [id number] 11/12/2013 18:25:00 11/12/2013 20:14:00 DIS Emergency JUAN MIGUEL JIMENEZ APRN [facility] ER [id number] 09/20/2013 20:53:00 09/20/2013 22:28:00 DIS Emergency [id number] 08/22/2013 00:18:00 08/22/2013 00:47:00 DIS Emergency [id number] 07/27/2013 17:52:00 07/27/2013 19:22:00 DIS Emergency JUAN MIGUEL JIMENEZ APRN [facility] ER [id number] 07/23/2013 20:24:00 07/23/2013 22:14:00 DIS Emergency [id number] 05/27/2013 19:11:00 05/27/2013 21:26:00 DIS Emergency [id number] 04/24/2013 21:55:00 04/25/2013 00:33:00 DIS Emergency [id number] 03/11/2013 19:17:00 03/11/2013 20:48:00 DIS Emergency [id number] 02/10/2013 12:53:00 02/10/2013 23:59:59 [facility] Outpatient [id number] 03/20/2016 21:06:00 03/20/2016 22:15:00 DIS Outpatient Yesica Mg
--- NOTE | 2017-07-11 20:28 | ED Headache ---
General Stated Complaint: MIGRAINE X 1 WK Source: patient Exam Limitations: no limitations History of Present Illness Date Seen by Provider: July 11, 2017 Time Seen by Provider: 20:27 Initial Comments To ER with an occipital headache for one week. She takes Esgic at home for these and his are used her maximum of 3 this week. She does follow with neurology. 4 for nausea associated with this. She has a history of frequent migraines and this feels similar to all of her previous migraines. Timing/Duration: 1 week Severity/Quality: moderate, constant Location: occipital Allergies and Home Medications Allergies Coded Allergies: sumatriptan (Unverified Allergy, Severe, ANAPHYLAXIS, 09/20/13) Penicillins (Unverified Allergy, Unknown, 09/20/13) sumatriptan succinate (Verified Adverse Reaction, Mild, 04/01/11) Home Medications Ibuprofen 600 Mg Tablet, 600 MG PO Q6H PRN for PAIN, (Reported) Ondansetron 4 Mg Tab.rapdis, 4 MG PO Q4H Prescribed by: YE CARBALLO on 05/07/161922 Patient Home Medication List Home Medication List Reviewed: Yes Review of Systems Constitutional: see HPI Eyes: No Symptoms Reported Ears, Nose, Mouth, Throat: no symptoms reported Respiratory: no symptoms reported Cardiovascular: no symptoms reported Genitourinary: no symptoms reported Musculoskeletal: no symptoms reported Skin: no symptoms reported Psychiatric/Neurological: See HPI, Headache Past Gdakzck-Ngjzjr-Ddldez Hx Patient Social History Type Used: Cigarettes Recent Foreign Travel: No Contact w/Someone Who Travel: No Recent Hopitalizations: No Immunizations Up To Date Tetanus Booster (TDap): Unknown PED Vaccines UTD: Yes Date of Influenza Vaccine: Jan 08, 2013 Seasonal Allergies Seasonal Allergies: Yes Past Medical History Surgeries: Yes (SINUS, EXPL LAP, EAR TUBES, perineal tear repair) Abdominal, Appendectomy, Ear Surgery, Eye Surgery Respiratory: No Cardiac: No Neurological: Yes Headaches /Migraines 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 Disorders: No Female 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 Disorders: Denies 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 Genitourinary: Yes (interstitial cystitis) Bladder Infection Gastrointestinal: Yes Gastroesophageal Reflux Musculoskeletal: No Endocrine: No HEENT: No Cancer: No Psychosocial: Yes Sleep Difficulties, Anxiety, PTSD, Depression Integumentary: No Blood Disorders: No Adverse Reaction/Blood Tranf: No Family Medical History FH: bipolar disorder 19 FATHER 19 MOTHER No Pertinent Family Hx Physical Exam Vital Signs Vital Signs - First Documented 07/11/17 20:20 Temp 98.1 Pulse 81 Resp 20 B/P (MAP) 142/96 (111) Pulse Ox 100 O2 Delivery Room Air Capillary Refill : General Appearance: WD/WN, no apparent distress HEENT: PERRL/EOMI, normal ENT inspection Neck: non-tender Cardiovascular: regular rate, rhythm, no murmur Respiratory: normal breath sounds, no respiratory distress, no accessory muscle use Gastrointestinal: normal bowel sounds, non tender Extremities: normal range of motion, non-tender Psychiatric: alert, oriented x 3 Crainal Nerves: normal hearing, normal speech, PERRL Skin: normal color, warm/dry Progress/Results/Core Measures Results/Orders My Orders Orders - JUAN MIGUEL JIMENEZ APRN Ketorolac Injection (Toradol Injection) (07/11/17 20:30) Prochlorperazine Injection (Compazine In (07/11/17 20:30) Diphenhydramine Injection (Benadryl Inje (07/11/17 20:30) Medications Given in ED Current Medications Medications Dose Ordered Sig/Janine Route Start Time Stop Time Status Last Admin Dose Admin Diphenhydramine HCl 50 mg ONCE ONCE IM 07/11/17 20:30 07/11/17 20:31 DC 07/11/17 20:48 50 MG Ketorolac Tromethamine 60 mg ONCE ONCE IM 07/11/17 20:30 07/11/17 20:31 DC 07/11/17 20:48 60 MG Prochlorperazine Edisylate 10 mg ONCE ONCE IM 07/11/17 20:30 07/11/17 20:31 DC 07/11/17 20:48 10 MG Vital Signs/I&O 07/11/17 07/11/17 07/11/17 07/11/17 20:20 20:48 20:48 20:48 Temp 98.1 98.1 98.1 98.1 Pulse 81 Resp 20 B/P (MAP) 142/96 (111) Pulse Ox 100 O2 Delivery Room Air Departure Impression Primary Impression: Chronic headaches Disposition: 01 HOME, SELF-CARE Condition: Stable Departure-Patient Inst. Decision time for Depature: 20:57 Referrals: GAUDENCIO RAJAN MD (PCP/Family) Primary Care Physician Patient Instructions: Headache, Adult (DC) JUAN MIGUEL JIMENEZ APRN July 11, 2017 20:27
[2017-07-11] MEDS ORDERED: KETOROLAC 60 MG/2 ML VIAL IM ONE (20:30)
[2017-07-11] MEDS ORDERED: PROCHLORPERAZINE 10 MG/2ML INJ (COMPAZINE) IM ONE (20:30)
[2017-07-11] MEDS ORDERED: diphenhydrAMINE 50 MG/ML INJ (BENADRYL) IM ONE (20:30)
[2017-07-11 21:00] VITALS: BP 140/90
== END 2017-07-11 21:00 | disposition home or self-care (01) ==
LOC: EDUNIT# 20:10 → ER 20:11
DX: G43.909 Migraine, unspecified, not intractable, without status migrainosus (principal); F41.9 Anxiety disorder, unspecified; F43.10 Post-traumatic stress disorder, unspecified; F32.9 Major depressive disorder, single episode, unspecified; G47.9 Sleep disorder, unspecified; K21.9 Gastro-esophageal reflux disease without esophagitis; Z87.440 Personal history of urinary (tract) infections; Z87.59 Personal history of other complications of pregnancy, childbirth and the puerperium; Z96.22 Myringotomy tube(s) status; Z90.49 Acquired absence of other specified parts of digestive tract; Z97.5 Presence of (intrauterine) contraceptive device; Z88.0 Allergy status to penicillin; Z88.8 Allergy status to other drugs, medicaments and biological substances
CPT/HCPCS: 96372; 99284

== ENCOUNTER 2017-08-31 18:18 | Emergency (ER) | payer MEDICARE, MEDICAID ==
[~2017-08-31] VITALS: Ht 162.6 cm; Wt 50.8 kg
--- NOTE | 2017-08-31 19:13 | ED Abdominal Pain ---
General Chief Complaint: Abdominal/GI Problems Stated Complaint: ABD PAIN Nursing Triage Note: PT STATES SHE BEGAN HAVING ABD PAIN AT APPROXIMATELY 1600 TODAY. PT STATES SHE VOMITED TWICE AND TRIED ORAL ZOFRAN BUT WAS UNABLE TO KEEP IT DOWN. Sepsis Screen: No Definite Risk Source of Information: Patient Exam Limitations: No Limitations History of Present Illness Date Seen by Provider: Aug 31, 2017 Time Seen by Provider: 19:10 Initial Comments to ER with epigastric and right upper quadrant abdominal pain that began about 4 PM today. She vomited twice and tried oral Zofran but had no relief. Currently she is not nauseated. no diarrhea. No fevers or chills. Timing/Duration: 4-6 Hours Severity/Quality: Moderate Location: RUQ, Epigastric Activities at Onset: None Associated Symptoms: Nausea/Vomiting Allergies and Home Medications Allergies Coded Allergies: sumatriptan (Unverified Allergy, Severe, ANAPHYLAXIS, 09/20/13) Penicillins (Unverified Allergy, Unknown, 09/20/13) sumatriptan succinate (Verified Adverse Reaction, Mild, 04/01/11) Home Medications Ibuprofen 600 Mg Tablet, 600 MG PO Q6H PRN for PAIN, (Reported) Ondansetron 4 Mg Tab.rapdis, 4 MG PO Q4H Prescribed by: YE CARBALLO on 05/07/161922 Patient Home Medication List Home Medication List Reviewed: Yes Review of Systems Constitutional: see HPI EENTM: No Symptoms Reported Respiratory: No Symptoms Reported Cardiovascular: No Symptoms Reported Gastrointestinal: See HPI, Nausea, Vomiting Genitourinary: No Symptoms Reported Musculoskeletal: no symptoms reported Skin: no symptoms reported Psychiatric/Neurological: No Symptoms Reported Endocrine: No Symptoms Reported Past Yuqxmku-Qtmmhu-Eclhnu Hx Patient Social History Alcohol Use: Denies Use Recreational Drug Use: No Smoking Status: Current Everyday Smoker Type Used: Cigarettes 2nd Hand Smoke Exposure: Yes Recent Foreign Travel: No Contact w/Someone Who Travel: No Recent Infectious Disease Expo: No Recent Hopitalizations: No Immunizations Up To Date Tetanus Booster (TDap): Unknown PED Vaccines UTD: Yes Date of Influenza Vaccine: Jan 08, 2013 Seasonal Allergies Seasonal Allergies: Yes Past Medical History Surgeries: Yes (SINUS, EXPL LAP, EAR TUBES, perineal tear repair) Abdominal, Appendectomy, Ear Surgery, Eye Surgery Respiratory: No Cardiac: No Neurological: Yes Headaches /Migraines 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 Disorders: No 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 Genitourinary: Yes (interstitial cystitis) Bladder Infection Gastrointestinal: Yes Gastroesophageal Reflux Musculoskeletal: No Endocrine: No HEENT: No Cancer: No Psychosocial: Yes Sleep Difficulties, Anxiety, PTSD, Depression Integumentary: No Blood Disorders: No Adverse Reaction/Blood Tranf: No Family Medical History FH: bipolar disorder 19 FATHER 19 MOTHER No Pertinent Family Hx Physical Exam Vital Signs Vital Signs - First Documented 08/31/17 18:38 Temp 97.7 Pulse 83 Resp 12 B/P (MAP) 102/69 (80) O2 Delivery Room Air Capillary Refill : Less Than 3 Seconds General Appearance: WD/WN, no apparent distress HEENT: PERRL/EOMI, normal ENT inspection Neck: non-tender, full range of motion Respiratory: normal breath sounds, no respiratory distress, no accessory muscle use Cardiovascular: regular rate, rhythm, no murmur Gastrointestinal: normal bowel sounds, soft, other (epigastric) Extremities: normal range of motion, non-tender 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: alert, normal mood/affect, oriented x 3 Skin: normal color, warm/dry Progress/Results/Core Measures Results/Orders Lab Results Laboratory Tests Test 08/31/17 18:49 08/31/17 18:50 Range/Units White Blood Count 11.5 H 4.3-11.0 10^3/uL Red Blood Count 4.38 4.35-5.85 10^6/uL Hemoglobin 15.5 11.5-16.0 G/DL Hematocrit 43 35-52 % Mean Corpuscular Volume 98 80-99 FL Mean Corpuscular Hemoglobin 35 H 25-34 PG Mean Corpuscular Hemoglobin Concent 36 32-36 G/DL Red Cell Distribution Width 13.0 10.0-14.5 % Platelet Count 258 130-400 10^3/uL Mean Platelet Volume 10.3 7.4-10.4 FL Neutrophils (%) (Auto) 69 42-75 % Lymphocytes (%) (Auto) 25 12-44 % Monocytes (%) (Auto) 6 0-12 % Eosinophils (%) (Auto) 0 0-10 % Basophils (%) (Auto) 0 0-10 % Neutrophils # (Auto) 7.9 H 1.8-7.8 X 10^3 Lymphocytes # (Auto) 2.8 1.0-4.0 X 10^3 Monocytes # (Auto) 0.7 0.0-1.0 X 10^3 Eosinophils # (Auto) 0.0 0.0-0.3 10^3/uL Basophils # (Auto) 0.0 0.0-0.1 10^3/uL Sodium Level 141 135-145 MMOL/L Potassium Level 3.7 3.6-5.0 MMOL/L Chloride Level 114 H 98-107 MMOL/L Carbon Dioxide Level 17 L 21-32 MMOL/L Anion Gap 10 5-14 MMOL/L Blood Urea Nitrogen 12 7-18 MG/DL Creatinine 0.68 0.60-1.30 MG/DL Estimat Glomerular Filtration Rate > 60 BUN/Creatinine Ratio 18 Glucose Level 87 70-105 MG/DL Calcium Level 9.2 8.5-10.1 MG/DL Total Bilirubin 0.3 0.1-1.0 MG/DL Aspartate Amino Transf (AST/SGOT) 13 5-34 U/L Alanine Aminotransferase (ALT/SGPT) 13 0-55 U/L Alkaline Phosphatase 57 40-136 U/L Total Protein 7.0 6.4-8.2 GM/DL Albumin 4.4 3.2-4.5 GM/DL Lipase 17 8-78 U/L Urine Color YELLOW Urine Clarity CLEAR Urine pH 5 5-9 Urine Specific [place] 1.025 H 1.016-1.022 Urine Protein 1+ H NEGATIVE Urine Glucose (UA) NEGATIVE NEGATIVE Urine Ketones NEGATIVE NEGATIVE Urine Nitrite NEGATIVE NEGATIVE Urine Bilirubin NEGATIVE NEGATIVE Urine Urobilinogen NORMAL NORMAL MG/DL Urine Leukocyte Esterase 1+ H NEGATIVE Urine RBC (Auto) 5+ H NEGATIVE Urine RBC 10-25 H /HPF Urine WBC NONE /HPF Urine Squamous Epithelial Cells 2-5 /HPF Urine Crystals NONE /LPF Urine Bacteria TRACE /HPF Urine Casts NONE /LPF Urine Mucus SMALL H /LPF Urine Culture Indicated NO Urine Opiates Screen NEGATIVE NEGATIVE Urine Oxycodone Screen NEGATIVE NEGATIVE Urine Methadone Screen NEGATIVE NEGATIVE Urine Propoxyphene Screen NEGATIVE NEGATIVE Urine Barbiturates Screen POSITIVE H NEGATIVE Ur Tricyclic Antidepressants Screen NEGATIVE NEGATIVE Urine Phencyclidine Screen NEGATIVE NEGATIVE Urine Amphetamines Screen NEGATIVE NEGATIVE Urine Methamphetamines Screen NEGATIVE NEGATIVE Urine Benzodiazepines Screen POSITIVE H NEGATIVE Urine Cocaine Screen NEGATIVE NEGATIVE Urine Cannabinoids Screen NEGATIVE NEGATIVE My Orders Orders - JUAN MIGUEL 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 Cbc With Automated Diff (08/31/17 19:07) Comprehensive Metabolic Panel (08/31/17 19:07) Ua Culture If Indicated (08/31/17 19:07) Drug Screen Stat (Urine) (08/31/17 19:07) Iv Heplock-Insert (Order) (08/31/17 19:07) Lipase (08/31/17 19:07) Antacid Suspension (Mylanta Suspension (08/31/17 19:15) Lidocaine 2% Viscous 15 Ml (Xylocaine Vi (08/31/17 19:15) Medications Given in ED Current Medications Medications Dose Ordered Sig/Janine Route Start Time Stop Time Status Last Admin Dose Admin Al Hydrox/Mg Hydrox/Simethicone 30 ml ONCE ONCE PO 08/31/17 19:15 08/31/17 19:17 DC 08/31/17 19:22 30 ML Lidocaine HCl 15 ml ONCE ONCE PO 08/31/17 19:15 08/31/17 19:17 DC 08/31/17 19:22 15 ML Vital Signs/I&O 08/31/17 18:38 Temp 97.7 Pulse 83 Resp 12 B/P (MAP) 102/69 (80) O2 Delivery Room Air Blood Pressure Mean: 80 Urine -Bedside: Negative Departure Communication (Admissions) 1957- She has had complete resolution of pain after GI cocktail. We will discharged home and have her follow up with primary care. Impression Primary Impression: Epigastric abdominal pain Disposition: AGAINST MEDICAL ADVICE Condition: Stable Departure-Patient Inst. Decision time for Depature: 19:58 Referrals: GAUDENCIO RAJAN MD (PCP/Family) Primary Care Physician Patient Instructions: No Instuctions Given Add. Discharge Instructions: . You may take an unjd-haz-epjjwog antacid such as TUMS, Maalox or Pepcid if you develop any recurrent pains. if these pains are severe return to the emergency room. .All discharge instructions reviewed with patient and/or family. Voiced understanding. 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
[2017-08-31 19:14] LABS: BASOPHILS % (AUTO) 0 % (0-10); EOSINOPHILS % (AUTO) 0 % (0-10); HEMATOCRIT 43 % (35-52); HEMOGLOBIN 15.5 G/DL (11.5-16.0); LYMPHOCYTES # (AUTO) 2.8 X 10^3 (1.0-4.0); LYMPHOCYTES % (AUTO) 25 % (12-44); MEAN CORPUSCULAR HEMOGLOBIN 35 PG (25-34); MEAN CORPUSCULAR HGB CONC 36 G/DL (32-36); MEAN CORPUSCULAR VOLUME 98 FL (80-99); MEAN PLATELET VOLUME 10.3 FL (7.4-10.4); MONOCYTES # (AUTO) 0.7 X 10^3 (0.0-1.0); MONOCYTES % (AUTO) 6 % (0-12); NEUTROPHILS # (AUTO) 7.9 X 10^3 (1.8-7.8); NEUTROPHILS % (AUTO) 69 % (42-75); PLATELET COUNT 258 10^3/uL (130-400); RED BLOOD COUNT 4.38 10^6/uL (4.35-5.85); WHITE BLOOD COUNT 11.5 10^3/uL (4.3-11.0)
[2017-08-31 19:15] LABS: BILIRUBIN,URINE NEGATIVE (NEGATIVE); CLARITY,URINE CLEAR; COLOR,URINE YELLOW; GLUCOSE, URINE (UA) NEGATIVE (NEGATIVE); KETONES,URINE NEGATIVE (NEGATIVE); LEUKOCYTE ESTERASE ,URINE 1+ (NEGATIVE); NITRITE,URINE NEGATIVE (NEGATIVE); PH,URINE 5 (5-9); PROTEIN,URINE 1+ (NEGATIVE); UROBILINOGEN,URINE NORMAL (NORMAL)
[2017-08-31] MEDS ORDERED: LIDOCAINE 2% VISCOUS 15 ML UDC PO ONE (19:15)
[2017-08-31] MEDS ORDERED: ANTACID SUSP 30 ML UDC (MYLANTA) PO ONE (19:15)
[2017-08-31 19:24] LABS: BACTERIA,URINE TRACE /HPF
[2017-08-31 19:28] LABS: ALANINE AMINOTRANSFERASE 13 U/L (0-55); ALBUMIN 4.4 GM/DL (3.2-4.5); ALKALINE PHOSPHATASE 57 U/L (40-136); BILIRUBIN,TOTAL 0.3 MG/DL (0.1-1.0); BUN/CREATININE RATIO 18; CALCIUM 9.2 MG/DL (8.5-10.1); CARBON DIOXIDE 17 MMOL/L (21-32); CHLORIDE 114 MMOL/L (98-107); CREATININE SERUM 0.68 MG/DL (0.60-1.30); GFR ESTIMATED > 60; GLUCOSE 87 MG/DL (70-105); LIPASE 17 U/L (8-78); POTASSIUM 3.7 MMOL/L (3.6-5.0); SODIUM 141 MMOL/L (135-145)
[2017-08-31 19:31] LABS: AMPHETAMINE SCREEN, URINE NEGATIVE (NEGATIVE); BARBITURATE SCREEN URINE POSITIVE (NEGATIVE); BENZODIAZEPINES SCREEN URINE POSITIVE (NEGATIVE); CANNABINOID SCREEN, URINE NEGATIVE (NEGATIVE); COCAINE SCREEN URINE NEGATIVE (NEGATIVE); METHADONE STAT NEGATIVE (NEGATIVE); METHAMPHETAMINE SCREEN URINE S NEGATIVE (NEGATIVE); OPIATE SCREEN URINE NEGATIVE (NEGATIVE); OXYCODONE STAT NEGATIVE (NEGATIVE); PROPOXYPHENE STAT NEGATIVE (NEGATIVE); TRICYCLIC ANTIDEPRESSANTS SCRE NEGATIVE (NEGATIVE)
--- OUTSIDE RECORDS SUMMARY | 2017-08-31 19:48 | XMS REPORT | Encounter Summary ---
Author Author [facility] Organization [facility] Address Unknown Phone Unavailable Care Team Providers Care Assistant Casino Shift Manager Name Role Phone Tami Cole MD Unavailable Dillon Simental MD PCP Reason for Visit * Reason Comments Bladder Pain Urinary Frequency Encounter Details Date Type Department Care Team Description 06/05/2017 Office Visit [facility] Guillermo Mae MD Interstitial cystitis Physicians - Urology [address] (Primary Dx); [address]LO[address] Urinary urgency; [address] [place] [address] Urinary frequency; OFFICE [facility] [phone] [place] [address] Social History Tobacco Use Types [...] Date EAR TUBES 1994 SINUS SURGERY 2004 MD CYSTOURETHROSCOPY W/DIL BLADDER GENERAL ANESTH N/A 05/21/2016 [...]
--- OUTSIDE RECORDS SUMMARY | 2017-08-31 19:48 | XMS REPORT | Clinical Summary ---
Author Author [facility] Organization [facility] Address Unknown Phone Unavailable Care Team Providers Care Can Marker Name Role Phone Tami Cole MD Unavailable Dillon Simental MD PCP Source Comments Some departments are not documenting in the electronic medical record. If you do not see the information that you expected, contact Release of Information in the Health Information Management department at [phone] for further assistance in locating additional records.[facility] Allergies Active Allergy Reactions Severity Noted Date [...] from ER recently ~ request sent to [place] Continue Atarax Continue Amitriptyline Continue Levsin PRN [...] Encounters Date Type Specialty Care Team Description 08/18/2017 Telephone Neurology Jeff Pool MD Other 07/10/2017 Office Visit Neurology Jeff Pool MD [...]
--- OUTSIDE RECORDS SUMMARY | 2017-08-31 19:48 | XMS REPORT | Encounter Summary ---
Author Author [facility] Organization [facility] Address Unknown Phone Unavailable Care Team Providers Care Patent Engineer Name Role Phone Tami Cole MD Unavailable Dillon Simental MD PCP Reason for Referral * Radiology Services Status Reason Specialty Diagnoses / Referred By Referred To Procedures Contact Contact No Auth Needed Radiology Diagnoses Kobe Muse R, [place] [address] aura, [address] [place], [place] [address] [address] [address] Phone: [employer] [place], [place] [phone] IR INJECTION [address] [place] [address] Phone: [facility] [phone] ANY DIV/BRANCH Fax: [facility] FLUOR[facility] [phone] GUIDANCE NEEDLE PLACEMENT ADD ON Reason for Visit * Reason Comments Follow Up Encounter Details Date Type Department Care Team Description 07/10/2017 Office Visit [facility] Jeff Pool MD Migraine without aura, Physicians-Neurology [address] [facility] [address] (Primary Dx) [facility] [place] [address] [place] [address] Social History Tobacco Use Types [...] Date EAR TUBES 1994 SINUS SURGERY 2004 [place] CYSTOURETHROSCOPY W/DIL BLADDER GENERAL ANESTH N/A 05/21/2016 [...] she would like to do this in [place] - Continue topiramate 200 bID - Discussed [...]
--- OUTSIDE RECORDS SUMMARY | 2017-08-31 19:48 | XMS REPORT | Encounter Summary ---
Author Author [facility] Organization [facility] Address Unknown Phone Unavailable Care Team Providers Care Shank Tapper Name Role Phone Tami Cole MD Unavailable Dillon Simental MD PCP Reason for Visit * Reason Comments Other Encounter Details Date Type Department Care Team Description 08/18/[address] [facility] Jeff Pool MD Other Physicians-Neurology [address] [facility] [place] [address] [address] [facility] [place] [address] Social History Tobacco Use Types Packs/Day Years Used Date Current Every Day Smoker Cigarettes 0.25 4 Smokeless Tobacco: Never Used Alcohol Use Drinks/Week oz/Week Comments No Sex Assigned at Date Recorded Not on file as of this encounter Miscellaneous Notes * Telephone Encounter - Danyelle Faye LPN - 08/18/2017 9:42 AM CDT Patient phoned with concerns about scheduling Spheno cath. Order for Spheno cath faxed to radiology scheduling and confirmed. I faxed order to Radiology scheduling , and gave patient the number to scheduling as well as my direct number . Patient Repeated numbers and thanked me. in this encounter Plan of Treatment Not on fileas of this encounter Visit Diagnoses Not on filein this encounter
[2017-08-31 20:06] VITALS: BP 102/69
== END 2017-08-31 20:05 | disposition left against medical advice (07) ==
LOC: EDUNIT# 18:18 → ER 18:20
DX: R10.13 Epigastric pain (principal); R10.11 Right upper quadrant pain; G43.909 Migraine, unspecified, not intractable, without status migrainosus; F41.9 Anxiety disorder, unspecified; F32.9 Major depressive disorder, single episode, unspecified; Z90.49 Acquired absence of other specified parts of digestive tract; Z97.5 Presence of (intrauterine) contraceptive device; Z77.22 Contact with and (suspected) exposure to environmental tobacco smoke (acute) (chronic); Z88.0 Allergy status to penicillin; Z88.1 Allergy status to other antibiotic agents
CPT/HCPCS: 36415; 80053; 80306; 81000; 83690; 84703; 85025

== ENCOUNTER 2017-10-26 19:13 | Emergency (ER) | payer MEDICARE, MEDICAID ==
[~2017-10-26] VITALS: Ht 162.6 cm; Wt 49.9 kg
--- NOTE | 2017-10-26 19:31 | ED Integumentary General ---
General Stated Complaint: TICK BITE Source: patient Exam Limitations: no limitations History of Present Illness Date Seen by Provider: Oct 26, 2017 Time Seen by Provider: 19:30 Initial Comments Patient is a 27-year-old female who presents to the emergency room with complaints of an embedded tick under her left arm. She denies any fevers, rash, nausea or vomiting. She noticed the tick this morning unsure how long that was embedded. Allergies and Home Medications Allergies Coded Allergies: sumatriptan (Unverified Allergy, Severe, ANAPHYLAXIS, 09/20/13) Penicillins (Unverified Allergy, Unknown, 09/20/13) sumatriptan succinate (Verified Adverse Reaction, Mild, 04/01/11) Home Medications Ibuprofen 600 Mg Tablet, 600 MG PO Q6H PRN for PAIN, (Reported) Ondansetron 4 Mg Tab.rapdis, 4 MG PO Q4H Prescribed by: YE CARBALLO on 05/07/161922 Past Dlvjpnj-Pvqevm-Hcfipx Hx Patient Social History Type Used: Cigarettes 2nd Hand Smoke Exposure: Yes Recent Foreign Travel: No Contact w/Someone Who Travel: No Recent Hopitalizations: No Immunizations Up To Date Tetanus Booster (TDap): Unknown PED Vaccines UTD: Yes Date of Influenza Vaccine: Jan 08, 2013 Seasonal Allergies Seasonal Allergies: Yes Past Medical History Surgeries: Yes (SINUS, EXPL LAP, EAR TUBES, perineal tear repair) Abdominal, Appendectomy, Ear Surgery, Eye Surgery Respiratory: No Cardiac: No Neurological: Yes Headaches /Migraines 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 Disorders: No 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 Decision time for Depature: 19:30 Referrals: UNKNOWN (PCP/Family) Primary Care Physician Patient Instructions: Insect Bites and Stings (DC) Add. Discharge Instructions: You may use topical Benadryl cream as needed for itching. Follow up with your doctor within 1 week for recheck. Return back to the emergency room for any worsening symptoms or any concerns as needed. PANCHITO ANTOINE Oct 26, 2017 19:31
[2017-10-26 19:38] VITALS: BP 111/72
== END 2017-10-26 19:43 | disposition home or self-care (01) ==
LOC: EDUNIT# 19:13 → ER 19:14
DX: S40.862A Insect bite (nonvenomous) of left upper arm, initial encounter (principal); G43.909 Migraine, unspecified, not intractable, without status migrainosus; K21.9 Gastro-esophageal reflux disease without esophagitis; F41.9 Anxiety disorder, unspecified; F32.9 Major depressive disorder, single episode, unspecified; F43.10 Post-traumatic stress disorder, unspecified; Z88.2 Allergy status to sulfonamides; Z88.0 Allergy status to penicillin; Z77.22 Contact with and (suspected) exposure to environmental tobacco smoke (acute) (chronic); Z90.49 Acquired absence of other specified parts of digestive tract; W57.XXXA Bitten or stung by nonvenomous insect and other nonvenomous arthropods, initial encounter
CPT/HCPCS: 99283

== ENCOUNTER 2017-11-17 18:27 | Emergency (ER) | payer MEDICARE, MEDICAID ==
[~2017-11-17] VITALS: Ht 160 cm; Wt 51.7 kg
[2017-11-17] MEDS ORDERED: KETOROLAC 60 MG/2 ML VIAL IM ONE (18:45)
[2017-11-17] MEDS ORDERED: PROCHLORPERAZINE 10 MG/2ML INJ (COMPAZINE) IM ONE (18:45)
[2017-11-17] MEDS ORDERED: diphenhydrAMINE 50 MG/ML INJ (BENADRYL) IVP ONE (18:45)
--- NOTE | 2017-11-17 19:20 | ED Headache ---
General Chief Complaint: Head/Cervical Problems Stated Complaint: MIGRAINE ALL DAY Nursing Triage Note: Pt c/o migraine starting today. Pt also c/o nausea. Pt reports she is currently on azythromycin for sinus infection. Nursing Sepsis Screen: No Definite Risk Source: patient Exam Limitations: no limitations History of Present Illness Date Seen by Provider: Nov 17, 2017 Time Seen by Provider: 18:37 Initial Comments Patient is a 27 year old female who presents to the emergency room with complaints of a migraine that started today. She reports that she frequently gets migraines and this is very similar to past migraines. She also reports nausea, denies vomiting. She states that she has had a sinus infection for the past week and is currently on azithromycin. Timing/Duration: 4-6 hours Severity/Quality: constant, pressure Location: global Prior Headaches/Recent Trauma: no recent headache/trauma, frequent headaches Associated Symptoms: nausea/vomiting Allergies and Home Medications Allergies Coded Allergies: sumatriptan (Unverified Allergy, Severe, ANAPHYLAXIS, 09/20/13) Penicillins (Unverified Allergy, Unknown, 09/20/13) sumatriptan succinate (Verified Adverse Reaction, Mild, 04/01/11) Home Medications Ibuprofen 600 Mg Tablet, 600 MG PO Q6H PRN for PAIN, (Reported) Ondansetron 4 Mg Tab.rapdis, 4 MG PO Q4H Prescribed by: YE CARBALLO on 05/07/161922 Patient Home Medication List Home Medication List Reviewed: Yes Review of Systems Review of Systems Constitutional: see HPI; No chills, No fever Gastrointestinal: see HPI, nausea Psychiatric/Neurological: See HPI, Headache All Other Systems Reviewed Negative Unless Noted: Yes Past Hehkfqp-Gdgvcd-Zgiwpu Hx Past Med/Social Hx: Reviewed Nursing Past Med/Soc Hx Patient Social History Alcohol Use: Denies Use Recreational Drug Use: No Smoking Status: Current Everyday Smoker Type Used: Cigarettes 2nd Hand Smoke Exposure: Yes Recent Foreign Travel: No Contact w/Someone Who Travel: No Recent Infectious Disease Expo: No Recent Hopitalizations: No Immunizations Up To Date Tetanus Booster (TDap): Unknown PED Vaccines UTD: Yes Date of Influenza Vaccine: Jan 08, 2013 Seasonal Allergies Seasonal Allergies: Yes Past Medical History Surgeries: Yes (SINUS, EXPL LAP, EAR TUBES, perineal tear repair) Abdominal, Appendectomy, Ear Surgery, Eye Surgery Respiratory: No Cardiac: No Neurological: Yes Headaches /Migraines 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 Disorders: No Female 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 Genitourinary: Yes (interstitial cystitis) Bladder Infection Gastrointestinal: Yes Gastroesophageal Reflux Musculoskeletal: No Endocrine: No HEENT: No Cancer: No Psychosocial: Yes Sleep Difficulties, Anxiety, PTSD, Depression Integumentary: No Blood Disorders: No Adverse Reaction/Blood Tranf: No Family Medical History Reviewed Nursing Family Hx FH: bipolar disorder 19 FATHER 19 MOTHER No Pertinent Family Hx Physical Exam Vital Signs Vital Signs - First Documented 11/17/17 18:37 Temp 96.2 Pulse 96 Resp 18 B/P (MAP) 105/73 (84) Pulse Ox 100 O2 Delivery Room Air Capillary Refill : Less Than 3 Seconds Height, Weight, BMI Height: 5'3.00" Weight: 114lbs. 0oz. 51.770641zl; 31.2 BMI Method:Stated General Appearance: WD/WN, no apparent distress HEENT: PERRL/EOMI, normal ENT inspection, TMs normal, pharynx normal Neck: non-tender, full range of motion, supple, normal inspection Cardiovascular: normal peripheral pulses, regular rate, rhythm, no edema, no gallop, no JVD, no murmur Respiratory: chest non-tender, lungs clear, normal breath sounds, no respiratory distress, no accessory muscle use Gastrointestinal: normal bowel sounds, non tender, soft, no organomegaly, no pulsatile mass Psychiatric: alert, oriented x 3 Crainal Nerves: normal hearing, normal speech Motor/Sensory: no motor deficit, no sensory deficit Progress/Results/Core Measures Results/Orders My Orders Orders - PANCHITO ANTOINE Diphenhydramine Injection (Benadryl Inje (11/17/17 18:45) Prochlorperazine Injection (Compazine In (11/17/17 18:45) Ketorolac Injection (Toradol Injection) (11/17/17 18:45) Iv Push Pit Tanner Ed (11/17/17 ) Im/Sub-Q Injection Non-Ab Ed (11/17/17 ) Medications Given in ED Vital Signs/I&O 11/17/17 11/17/17 18:37 19:24 Temp 96.2 96.2 Pulse 96 96 Resp 18 18 B/P (MAP) 105/73 (84) 105/73 (84) Pulse Ox 100 100 O2 Delivery Room Air Blood Pressure Mean: 84 Progress Progress Note : Time: 19:00 Progress Note I have seen and evaluated the patient. She reports that her migraine has resolved along with her nausea. She agrees with plans for discharge, close follow up with primary care, return precautions were given. Departure Impression Primary Impression: Migraine Additional Impression: Headache Disposition: 01 HOME, SELF-CARE Condition: Stable/Unchanged Departure-Patient Inst. Decision time for Depature: 19:19 Referrals: NO,LOCAL PHYSICIAN (PCP) Primary Care Physician Patient Instructions: Headache, Adult (DC) Add. Discharge Instructions: Resume your home medications as previously prescribed. Follow-up with your primary care provider within 1 week for recheck. Return back to the emergency room for any worsening symptoms or concerns as needed. All discharge instructions reviewed with patient and/or family. Voiced understanding. PANCHITO ANTOINE Nov 17, 2017 19:20
[2017-11-17 19:24] VITALS: BP 105/73
== END 2017-11-17 19:28 | disposition home or self-care (01) ==
LOC: EDUNIT# 18:27 → ER 18:29
DX: G43.909 Migraine, unspecified, not intractable, without status migrainosus (principal); K21.9 Gastro-esophageal reflux disease without esophagitis; F41.9 Anxiety disorder, unspecified; F43.10 Post-traumatic stress disorder, unspecified; F32.9 Major depressive disorder, single episode, unspecified; F17.210 Nicotine dependence, cigarettes, uncomplicated; Z90.89 Acquired absence of other organs; Z97.5 Presence of (intrauterine) contraceptive device; Z87.448 Personal history of other diseases of urinary system; Z88.0 Allergy status to penicillin; Z88.8 Allergy status to other drugs, medicaments and biological substances
CPT/HCPCS: 96372; 96374; 99284

== ENCOUNTER 2017-11-20 17:48 | Emergency (ER) | payer MEDICARE, MEDICAID ==
[~2017-11-20] VITALS: Ht 162.6 cm; Wt 51.7 kg
[2017-11-20 19:45] LABS: BASOPHILS # (AUTO) 0.1 10^3/uL (0.0-0.1); BASOPHILS % (AUTO) 1 % (0-10); EOSINOPHILS # (AUTO) 0.1 10^3/uL (0.0-0.3); EOSINOPHILS % (AUTO) 1 % (0-10); HEMATOCRIT 38 % (35-52); HEMOGLOBIN 12.9 G/DL (11.5-16.0); LYMPHOCYTES # (AUTO) 3.2 X 10^3 (1.0-4.0); LYMPHOCYTES % (AUTO) 35 % (12-44); MEAN CORPUSCULAR HEMOGLOBIN 34 PG (25-34); MEAN CORPUSCULAR HGB CONC 34 G/DL (32-36); MEAN CORPUSCULAR VOLUME 101 FL (80-99); MEAN PLATELET VOLUME 9.6 FL (7.4-10.4); MONOCYTES # (AUTO) 0.4 X 10^3 (0.0-1.0); MONOCYTES % (AUTO) 5 % (0-12); NEUTROPHILS # (AUTO) 5.2 X 10^3 (1.8-7.8); NEUTROPHILS % (AUTO) 59 % (42-75); PLATELET COUNT 337 10^3/uL (130-400); RED BLOOD COUNT 3.79 10^6/uL (4.35-5.85); RED CELL DISTRIBUTION WIDTH 12.5 % (10.0-14.5); WHITE BLOOD COUNT 8.9 10^3/uL (4.3-11.0)
[2017-11-20 19:46] LABS: BILIRUBIN,URINE NEGATIVE (NEGATIVE); CLARITY,URINE MUCOUS; COLOR,URINE YELLOW; GLUCOSE, URINE (UA) NEGATIVE (NEGATIVE); KETONES,URINE NEGATIVE (NEGATIVE); LEUKOCYTE ESTERASE ,URINE 1+ (NEGATIVE); NITRITE,URINE NEGATIVE (NEGATIVE); PH,URINE 8 (5-9); PROTEIN,URINE 2+ (NEGATIVE); UROBILINOGEN,URINE NORMAL (NORMAL)
[2017-11-20 19:57] LABS: AMORPHOUS SEDIMENT,UR LARGE AMOR PHOSPHATE /LPF; BACTERIA,URINE FEW /HPF; WBC,URINE 0-2 /HPF
[2017-11-20 20:03] LABS: AMPHETAMINE SCREEN, URINE NEGATIVE (NEGATIVE); BARBITURATE SCREEN URINE POSITIVE (NEGATIVE); BENZODIAZEPINES SCREEN URINE POSITIVE (NEGATIVE); CANNABINOID SCREEN, URINE NEGATIVE (NEGATIVE); COCAINE SCREEN URINE NEGATIVE (NEGATIVE); METHADONE STAT NEGATIVE (NEGATIVE); METHAMPHETAMINE SCREEN URINE S NEGATIVE (NEGATIVE); OPIATE SCREEN URINE NEGATIVE (NEGATIVE); OXYCODONE STAT NEGATIVE (NEGATIVE); PROPOXYPHENE STAT NEGATIVE (NEGATIVE); TRICYCLIC ANTIDEPRESSANTS SCRE NEGATIVE (NEGATIVE)
[2017-11-20 20:06] LABS: ALANINE AMINOTRANSFERASE 12 U/L (0-55); ALBUMIN 4.1 GM/DL (3.2-4.5); ALKALINE PHOSPHATASE 47 U/L (40-136); BILIRUBIN,TOTAL 0.2 MG/DL (0.1-1.0); BUN/CREATININE RATIO 18; CALCIUM 9.2 MG/DL (8.5-10.1); CARBON DIOXIDE 17 MMOL/L (21-32); CHLORIDE 111 MMOL/L (98-107); CREATININE SERUM 0.65 MG/DL (0.60-1.30); GFR ESTIMATED > 60; GLUCOSE 85 MG/DL (70-105); POTASSIUM 3.7 MMOL/L (3.6-5.0); SODIUM 137 MMOL/L (135-145); TOTAL PROTEIN 6.7 GM/DL (6.4-8.2)
--- NOTE | 2017-11-20 20:15 | ED General ---
General Chief Complaint: Dizziness/Syncope Stated Complaint: CONSTANTLY TIRED,FEELS LIKE SHE IS GOING TO FAINT Nursing Triage Note: Pt arrives to ED Room #2 c/o syncope, dizziness, extreme fatigue, and "feeling like I am going to pass out". Pt ambulates with steady gait. Pt appears tired and is not opening her eyes fully. Pt has a flat affect and mumbles at times when speaking. Pt denies any injury or LOC. Nursing Sepsis Screen: No Definite Risk Source of Information: Patient Exam Limitations: No Limitations History of Present Illness Date Seen by Provider: Nov 20, 2017 Time Seen by Provider: 20:14 Initial Comments To ER per private vehicle with reports of dizziness, fatigue, near syncope constant for several months and no different today. She states that she has not had a chance to address this with primary care yet. Timing/Duration: 1-2 Days Severity: Moderate Associated Systoms: Headaches; No Nausea/Vomiting Allergies and Home Medications Allergies Coded Allergies: sumatriptan (Unverified Allergy, Severe, ANAPHYLAXIS, 09/20/13) Penicillins (Unverified Allergy, Unknown, 09/20/13) sumatriptan succinate (Verified Adverse Reaction, Mild, 04/01/11) Home Medications Ibuprofen 600 Mg Tablet, 600 MG PO Q6H PRN for PAIN, (Reported) Ondansetron 4 Mg Tab.rapdis, 4 MG PO Q4H Prescribed by: YE CARBALLO on 05/07/161922 Patient Home Medication List Home Medication List Reviewed: Yes Review of Systems Review of Systems Constitutional: see HPI; No chills; malaise, weakness EENTM: see HPI Respiratory: no symptoms reported Cardiovascular: no symptoms reported Genitourinary: no symptoms reported Musculoskeletal: no symptoms reported Skin: no symptoms reported Psychiatric/Neurological: No Symptoms Reported Hematologic/Lymphatic: No Symptoms Reported Immunological/Allergic: no symptoms reported Past Nkjntmv-Zzgbkr-Ydqndk Hx Patient Social History Alcohol Use: Denies Use Recreational Drug Use: No Type Used: Cigarettes 2nd Hand Smoke Exposure: Yes Recent Foreign Travel: No Contact w/Someone Who Travel: No Recent Infectious Disease Expo: No Recent Hopitalizations: No Physical Abuse: No Sexual Abuse: No Mistreated: No Fear: No Immunizations Up To Date Tetanus Booster (TDap): Unknown PED Vaccines UTD: Yes Date of Influenza Vaccine: Jan 08, 2013 Seasonal Allergies Seasonal Allergies: Yes Past Medical History Surgeries: Yes (SINUS, EXPL LAP, EAR TUBES, perineal tear repair) Abdominal, Appendectomy, Ear Surgery, Eye Surgery Respiratory: No Cardiac: No Neurological: Yes Headaches /Migraines 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 Disorders: No Female 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 Genitourinary: Yes (interstitial cystitis) Bladder Infection Gastrointestinal: Yes Gastroesophageal Reflux Musculoskeletal: No Endocrine: No HEENT: No Cancer: No Psychosocial: Yes Sleep Difficulties, Anxiety, PTSD, Depression Integumentary: No Blood Disorders: No Adverse Reaction/Blood Tranf: No Family Medical History FH: bipolar disorder 19 FATHER 19 MOTHER No Pertinent Family Hx Physical Exam Vital Signs Vital Signs - First Documented 11/20/17 18:04 Temp 98.6 Pulse 90 Resp 14 B/P (MAP) 111/79 (90) Pulse Ox 99 O2 Delivery Room Air Capillary Refill : Less Than 3 Seconds Height, Weight, BMI Height: 5'4.00" Weight: 114lbs. 0oz. 51.913298td; 31.2 BMI Method:Stated General Appearance: No Apparent Distress, WD/WN Eyes: Bilateral Eye Normal Inspection, Bilateral Eye PERRL, Bilateral Eye EOMI HEENT: PERRL/EOMI, TMs Normal Neck: Full Range of Motion, Normal Inspection Respiratory: No Accessory Muscle Use, No Respiratory Distress Cardiovascular: Regular Rate, Rhythm, Normal Peripheral Pulses Gastrointestinal: Non Tender, Soft Extremity: Normal Capillary Refill, Normal Inspection 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: Alert, Oriented x3 Progress/Results/Core Measures Suspected Sepsis Recent Fever Within 48 Hours: No Infection Criteria Present: None New/Unexplained Altered Menta: No Sepsis Screen: No Definite Risk SIRS Temperature:98.6 Pulse: 90 Respiratory Rate: 14 Laboratory Tests 11/20/17 19:29: White Blood Count 8.9 Blood Pressure 111 /79 Mean: 90 Laboratory Tests 11/20/17 19:29: Creatinine 0.65, Platelet Count 337, Total Bilirubin 0.2 Results/Orders Lab Results Laboratory Tests Test 11/20/17 19:17 11/20/17 19:29 Range/Units Urine Color YELLOW Urine Clarity MUCOUS Urine pH 8 5-9 Urine Specific Levels 1.010 L 1.016-1.022 Urine Protein 2+ H NEGATIVE Urine Glucose (UA) NEGATIVE NEGATIVE Urine Ketones NEGATIVE NEGATIVE Urine Nitrite NEGATIVE NEGATIVE Urine Bilirubin NEGATIVE NEGATIVE Urine Urobilinogen NORMAL NORMAL MG/DL Urine Leukocyte Esterase 1+ H NEGATIVE Urine RBC (Auto) NEGATIVE NEGATIVE Urine RBC NONE /HPF Urine WBC 0-2 /HPF Urine Squamous Epithelial Cells 2-5 /HPF Urine Crystals PRESENT H /LPF Urine Amorphous Sediment LARGE VANESA PHOSPHATE H /LPF Urine Bacteria FEW H /HPF Urine Casts NONE /LPF Urine Mucus LARGE H /LPF Urine Culture Indicated NO Urine Opiates Screen NEGATIVE NEGATIVE Urine Oxycodone Screen NEGATIVE NEGATIVE Urine Methadone Screen NEGATIVE NEGATIVE Urine Propoxyphene Screen NEGATIVE NEGATIVE Urine Barbiturates Screen POSITIVE H NEGATIVE Ur Tricyclic Antidepressants Screen NEGATIVE NEGATIVE Urine Phencyclidine Screen NEGATIVE NEGATIVE Urine Amphetamines Screen NEGATIVE NEGATIVE Urine Methamphetamines Screen NEGATIVE NEGATIVE Urine Benzodiazepines Screen POSITIVE H NEGATIVE Urine Cocaine Screen NEGATIVE NEGATIVE Urine Cannabinoids Screen NEGATIVE NEGATIVE White Blood Count 8.9 4.3-11.0 10^3/uL Red Blood Count 3.79 L 4.35-5.85 10^6/uL Hemoglobin 12.9 11.5-16.0 G/DL Hematocrit 38 35-52 % Mean Corpuscular Volume 101 H 80-99 FL Mean Corpuscular Hemoglobin 34 25-34 PG Mean Corpuscular Hemoglobin Concent 34 32-36 G/DL Red Cell Distribution Width 12.5 10.0-14.5 % Platelet Count 337 130-400 10^3/uL Mean Platelet Volume 9.6 7.4-10.4 FL Neutrophils (%) (Auto) 59 42-75 % Lymphocytes (%) (Auto) 35 12-44 % Monocytes (%) (Auto) 5 0-12 % Eosinophils (%) (Auto) 1 0-10 % Basophils (%) (Auto) 1 0-10 % Neutrophils # (Auto) 5.2 1.8-7.8 X 10^3 Lymphocytes # (Auto) 3.2 1.0-4.0 X 10^3 Monocytes # (Auto) 0.4 0.0-1.0 X 10^3 Eosinophils # (Auto) 0.1 0.0-0.3 10^3/uL Basophils # (Auto) 0.1 0.0-0.1 10^3/uL Sodium Level 137 135-145 MMOL/L Potassium Level 3.7 3.6-5.0 MMOL/L Chloride Level 111 H 98-107 MMOL/L Carbon Dioxide Level 17 L 21-32 MMOL/L Anion Gap 9 5-14 MMOL/L Blood Urea Nitrogen 12 7-18 MG/DL Creatinine 0.65 0.60-1.30 MG/DL Estimat Glomerular Filtration Rate > 60 BUN/Creatinine Ratio 18 Glucose Level 85 70-105 MG/DL Calcium Level 9.2 8.5-10.1 MG/DL Corrected Calcium 9.1 8.5-10.1 MG/DL Total Bilirubin 0.2 0.1-1.0 MG/DL Aspartate Amino Transf (AST/SGOT) 11 5-34 U/L Alanine Aminotransferase (ALT/SGPT) 12 0-55 U/L Alkaline Phosphatase 47 40-136 U/L Total Protein 6.7 6.4-8.2 GM/DL Albumin 4.1 3.2-4.5 GM/DL My Orders Orders - JUAN MIGUEL JIMENEZ APRN Cbc With Automated Diff (11/20/17 18:48) Comprehensive Metabolic Panel (11/20/17 18:48) Drug Screen Stat (Urine) (11/20/17 18:48) Ua Culture If Indicated (11/20/17 18:48) Iv Heplock-Insert (Order) (11/20/17 18:48) Tick Panel Without Lyme (11/20/17 20:00) Thyroid Stimulating Hormone (11/20/17 20:02) Vital Signs/I&O 11/20/17 18:04 Temp 98.6 Pulse 90 Resp 14 B/P (MAP) 111/79 (90) Pulse Ox 99 O2 Delivery Room Air Capillary Refill : Less Than 3 Seconds Blood Pressure Mean: 90 Departure Communication (Admissions) She states that she plans to follow up with Dr. Dr. Shah and would like me to fax my note him. Impression Primary Impression: Weakness Disposition: 01 HOME, SELF-CARE Condition: Stable Departure-Patient Inst. Decision time for Depature: 20:19 Referrals: NO,LOCAL PHYSICIAN (PCP/Family) Primary Care Physician Patient Instructions: Generalized Weakness Add. Discharge Instructions: All discharge instructions reviewed with patient and/or family. Voiced understanding. Copy Copies To 1: WISAM SHAH PETER J APRN Nov 20, 2017 20:15
[2017-11-20 20:31] VITALS: BP 115/78
== END 2017-11-20 20:32 | disposition home or self-care (01) ==
LOC: EDUNIT# 17:48 → ER 17:49
DX: R53.1 Weakness (principal); G43.909 Migraine, unspecified, not intractable, without status migrainosus; K21.9 Gastro-esophageal reflux disease without esophagitis; F41.9 Anxiety disorder, unspecified; F32.9 Major depressive disorder, single episode, unspecified; F43.10 Post-traumatic stress disorder, unspecified; Z87.448 Personal history of other diseases of urinary system; Z97.5 Presence of (intrauterine) contraceptive device; Z88.0 Allergy status to penicillin; Z88.8 Allergy status to other drugs, medicaments and biological substances; Z77.22 Contact with and (suspected) exposure to environmental tobacco smoke (acute) (chronic); Z90.49 Acquired absence of other specified parts of digestive tract
CPT/HCPCS: 36415; 80053; 80306; 81000; 84443; 85025; 86666; 86668; 86757

== ENCOUNTER 2017-12-23 09:04 | Emergency (ER) | payer MEDICARE, MEDICAID ==
[~2017-12-23] VITALS: Ht 162.6 cm; Wt 52.2 kg
[2017-12-23] MEDS ORDERED: diphenhydrAMINE 50 MG/ML INJ (BENADRYL) IM ONE (10:45)
[2017-12-23] MEDS ORDERED: PROCHLORPERAZINE 10 MG/2ML INJ (COMPAZINE) IM ONE (10:45)
[2017-12-23] MEDS ORDERED: KETOROLAC 60 MG/2 ML VIAL IM ONE (10:45)
--- NOTE | 2017-12-23 11:55 | ED Headache ---
General Chief Complaint: Head/Cervical Problems Stated Complaint: MIGRAINE Nursing Triage Note: FOR THE LAST 2-3 DAYS THE PT REPORTS HAVING A MIGRAINE UNRELIEVED BY HER PERSCRIPTION MEDICATIONS. PT STATES THIS MIGRAINE FEELS SIMALR TO OTHERS SHE HAS HAD IN THE PAST. Nursing Sepsis Screen: No Definite Risk Source: patient Exam Limitations: no limitations History of Present Illness Date Seen by Provider: Dec 23, 2017 Time Seen by Provider: 10:46 Initial Comments Patient is a 27 year old female who presents to the emergency room with complains of a migraine that started 2-3 days ago. She is prescribed daily and abortive migraine medications but has not had any relief with these. She reports that the migraine is very similar to past migraines but it will not go away. Timing/Duration: other (2-3 dyas) Severity/Quality: constant Location: global Prior Headaches/Recent Trauma: frequent headaches Associated Symptoms: denies symptoms Allergies and Home Medications Allergies Coded Allergies: sumatriptan (Unverified Allergy, Severe, ANAPHYLAXIS, 09/20/13) Penicillins (Unverified Allergy, Unknown, 09/20/13) sumatriptan succinate (Verified Adverse Reaction, Mild, 04/01/11) Home Medications Ibuprofen 600 Mg Tablet, 600 MG PO Q6H PRN for PAIN, (Reported) Ondansetron 4 Mg Tab.rapdis, 4 MG PO Q4H Prescribed by: YE CARBALLO on 05/07/161922 Patient Home Medication List Home Medication List Reviewed: Yes Review of Systems Review of Systems Constitutional: see HPI; No chills, No fever Gastrointestinal: see HPI; No nausea, No vomiting Psychiatric/Neurological: See HPI, Headache All Other Systems Reviewed Negative Unless Noted: Yes Past Sxojnpw-Lzpfju-Ukgjnb Hx Past Med/Social Hx: Reviewed Nursing Past Med/Soc Hx Patient Social History Alcohol Use: Denies Use Recreational Drug Use: No Smoking Status: Current Everyday Smoker Type Used: Cigarettes 2nd Hand Smoke Exposure: Yes Recent Foreign Travel: No Contact w/Someone Who Travel: No Recent Infectious Disease Expo: No Recent Hopitalizations: No Immunizations Up To Date Tetanus Booster (TDap): Unknown PED Vaccines UTD: Yes Date of Influenza Vaccine: Jan 08, 2013 Seasonal Allergies Seasonal Allergies: Yes Past Medical History Surgeries: Yes (SINUS, EXPL LAP, EAR TUBES, perineal tear repair) Abdominal, Appendectomy, Ear Surgery, Eye Surgery Respiratory: No Cardiac: No Neurological: Yes Headaches /Migraines : No (COPER IUD WITH CONTROL) Last Menstrual Period: Dec 09, 2017 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 Disorders: No Female 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 Disorders: Denies, 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 Genitourinary: Yes (interstitial cystitis) Bladder Infection Gastrointestinal: Yes Gastroesophageal Reflux Musculoskeletal: No Endocrine: No HEENT: No Cancer: No Psychosocial: Yes Sleep Difficulties, Anxiety, PTSD, Depression Integumentary: No Blood Disorders: No Adverse Reaction/Blood Tranf: No Family Medical History Reviewed Nursing Family Hx FH: bipolar disorder 19 FATHER 19 MOTHER No Pertinent Family Hx Physical Exam Vital Signs Vital Signs - First Documented 12/23/17 10:45 Temp 97.9 Pulse 70 Resp 20 B/P (MAP) 112/83 (93) Pulse Ox 100 O2 Delivery Room Air Capillary Refill : Less Than 3 Seconds Height, Weight, BMI Height: 5'4.00" Weight: 115lbs. 0oz. 52.044046mn; 31.2 BMI Method:Stated General Appearance: WD/WN, no apparent distress HEENT: PERRL/EOMI, normal ENT inspection Neck: non-tender, full range of motion Cardiovascular: normal peripheral pulses, regular rate, rhythm, no edema, no gallop, no JVD, no murmur Respiratory: chest non-tender, lungs clear, normal breath sounds, no respiratory distress, no accessory muscle use Gastrointestinal: normal bowel sounds, non tender, soft Extremities: normal capillary refill Psychiatric: alert, oriented x 3 Crainal Nerves: normal hearing, normal speech Skin: normal color, warm/dry Progress/Results/Core Measures Results/Orders My Orders Orders - PANCHITO ANTOINE Ketorolac Injection (Toradol Injection) (12/23/17 10:45) Diphenhydramine Injection (Benadryl Inje (12/23/17 10:45) Prochlorperazine Injection (Compazine In (12/23/17 10:45) Medications Given in ED Vital Signs/I&O 12/23/17 12/23/17 10:45 12:22 Temp 97.9 98.2 Pulse 70 78 Resp 20 20 B/P (MAP) 112/83 (93) 109/79 (89) Pulse Ox 100 99 O2 Delivery Room Air Room Air Blood Pressure Mean: 93 Progress Progress Note : Time: 12:00 Progress Note I have seen and evaluated the patient. She is completely free of her migraine symptoms at this time. She agrees with plans of care, plans were discharged, return precautions were given. Voice is no questions or concerns. Departure Impression Primary Impression: Migraine Disposition: 01 HOME, SELF-CARE Condition: Stable/Unchanged Departure-Patient Inst. Decision time for Depature: 12:12 Referrals: NO,LOCAL PHYSICIAN (PCP) Primary Care Physician Patient Instructions: Migraine Headache (DC) Add. Discharge Instructions: Resume your home medications as previously prescribed. Follow-up with your primary care provider within 1 week for recheck. Return back to the emergency room for any worsening symptoms or concerns as needed. All discharge instructions reviewed with patient and/or family. Voiced understanding. PANCHITO ANTOINE Dec 23, 2017 11:55
[2017-12-23 12:22] VITALS: BP 109/79
== END 2017-12-23 12:22 | disposition home or self-care (01) ==
LOC: EDUNIT# 09:04 → ER 09:05
DX: G43.909 Migraine, unspecified, not intractable, without status migrainosus (principal); K21.9 Gastro-esophageal reflux disease without esophagitis; F41.9 Anxiety disorder, unspecified; F43.10 Post-traumatic stress disorder, unspecified; F32.9 Major depressive disorder, single episode, unspecified; F17.210 Nicotine dependence, cigarettes, uncomplicated; Z90.89 Acquired absence of other organs; Z97.5 Presence of (intrauterine) contraceptive device; Z87.448 Personal history of other diseases of urinary system; Z88.0 Allergy status to penicillin; Z88.8 Allergy status to other drugs, medicaments and biological substances
CPT/HCPCS: 96372; 99284

== ENCOUNTER 2018-01-25 20:43 | Emergency (ER) | payer MEDICARE, MEDICAID ==
[~2018-01-25] VITALS: Ht 162.6 cm; Wt 52.2 kg
[~2018-01-25 20:43] MED LIST changes: +METR-197 PO; -METR500T21 PO
[2018-01-25] MEDS ORDERED: ONDANSETRON 4 MG (ZOFRAN) ORAL DISSOLVE TAB PO ONE (22:00)
[2018-01-25] MEDS ORDERED: KETOROLAC 60 MG/2 ML VIAL IM ONE (22:00)
[2018-01-25] MEDS ORDERED: ORPHENADRINE 60 MG/2 ML (NORFLEX) AMP IM ONE (22:00)
--- NOTE | 2018-01-25 22:02 | ED Headache ---
General Chief Complaint: Head/Cervical Problems Stated Complaint: MIGRAINE, VOMITTING Nursing Triage Note: PT ARRIVES TO ED ROOM #4 WITH C/O MIGRAINE HEADACHE. PT STATES THAT HER HEADACHE STARTED YESTERDAY AND SHE HAS HAD NO RELIEF WITH MEDICATIONS. PT STATES THAT SHE HAS NAUSEA AND HAS VOMITTED X1. PAIN / Nursing Sepsis Screen: No Definite Risk Source: patient Allergies and Home Medications Allergies Coded Allergies: sumatriptan (Unverified Allergy, Severe, ANAPHYLAXIS, 09/20/13) Penicillins (Unverified Allergy, Unknown, 09/20/13) sumatriptan succinate (Verified Adverse Reaction, Mild, 04/01/11) Home Medications Ibuprofen 600 Mg Tablet, 600 MG PO Q6H PRN for PAIN, (Reported) Ondansetron 4 Mg Tab.rapdis, 4 MG PO Q4H Prescribed by: YE CARBALLO on 05/07/161922 Patient Home Medication List Home Medication List Reviewed: Yes Past Fzogzhh-Ntapfs-Rblhir Hx Patient Social History Alcohol Use: Denies Use Recreational Drug Use: No Smoking Status: Current Everyday Smoker Type Used: Cigarettes 2nd Hand Smoke Exposure: Yes Recent Foreign Travel: No Contact w/Someone Who Travel: No Recent Infectious Disease Expo: No Recent Hopitalizations: No Physical Abuse: No Sexual Abuse: No Mistreated: No Fear: No Immunizations Up To Date Tetanus Booster (TDap): Unknown PED Vaccines UTD: Yes Date of Influenza Vaccine: Jan 08, 2013 Seasonal Allergies Seasonal Allergies: Yes Past Medical History Surgeries: Yes (SINUS, EXPL LAP, EAR TUBES, perineal tear repair) Abdominal, Appendectomy, Ear Surgery, Eye Surgery Respiratory: No Cardiac: No Neurological: Yes Headaches /Migraines 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 Disorders: No Female 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 Disorders: Denies, 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 Genitourinary: Yes (interstitial cystitis) Bladder Infection Gastrointestinal: Yes Gastroesophageal Reflux Musculoskeletal: No Endocrine: No HEENT: No Cancer: No Psychosocial: Yes Sleep Difficulties, Anxiety, PTSD, Depression Integumentary: No Blood Disorders: No Adverse Reaction/Blood Tranf: No Family Medical History FH: bipolar disorder 19 FATHER 19 MOTHER No Pertinent Family Hx Physical Exam Vital Signs Vital Signs - First Documented 01/25/18 21:03 Temp 98.2 Pulse 76 Resp 18 B/P (MAP) 109/76 (87) Pulse Ox 100 Capillary Refill : Less Than 3 Seconds Height, Weight, BMI Height: 5'4.00" Weight: 115lbs. 0oz. 52.387710qy; 31.2 BMI Method:Stated Progress/Results/Core Measures Results/Orders My Orders Orders - YE CARBALLO DO Ketorolac Injection (Toradol Injection) (01/25/18 22:00) Orphenadrine Injection (Norflex Injectio (01/25/18 22:00) Ondansetron Oral Dissolve Tab (Zofran (01/25/18 22:00) Vital Signs/I&O 01/25/18 21:03 Temp 98.2 Pulse 76 Resp 18 B/P (MAP) 109/76 (87) Pulse Ox 100 Blood Pressure Mean: 87 Departure Impression Primary Impression: Chronic headaches Disposition: 01 HOME, SELF-CARE Condition: Stable Departure-Patient Inst. Referrals: WISAM SHAH DO Patient Instructions: Headache, Adult (DC) Add. Discharge Instructions: LOTS OF CLEAR LIQUIDS IBUPROFEN 800 MG EVERY 6 HOURS NEEDED FOR PAIN TAKE YOUR ESGIC EVERY 4-6 HOURS NEEDED FOR HEADACHE FOLLOW UP WITH YOUR NEUROLOGIST OR DR. SHAH TOMORROW IF NO BETTER All discharge instructions reviewed with patient and/or family. Voiced understanding. YE CARBALLO DO Jan 25, 2018 22:02
[2018-01-25 22:48] VITALS: BP 121/86
== END 2018-01-25 22:48 | disposition home or self-care (01) ==
LOC: EDUNIT# 20:43 → ER 20:45
DX: R51 Headache (principal); G89.29 Other chronic pain; K21.9 Gastro-esophageal reflux disease without esophagitis; F41.9 Anxiety disorder, unspecified; F43.10 Post-traumatic stress disorder, unspecified; F32.9 Major depressive disorder, single episode, unspecified; F17.210 Nicotine dependence, cigarettes, uncomplicated; Z88.0 Allergy status to penicillin; Z97.5 Presence of (intrauterine) contraceptive device; Z87.448 Personal history of other diseases of urinary system; Z88.8 Allergy status to other drugs, medicaments and biological substances; Z90.49 Acquired absence of other specified parts of digestive tract; Z98.890 Other specified postprocedural states
CPT/HCPCS: 99284

== ENCOUNTER 2018-02-03 23:40 | Emergency (ER) | payer MEDICARE, MEDICAID ==
[~2018-02-03] VITALS: Ht 162.6 cm; Wt 52.2 kg
[2018-02-03] MEDS ORDERED: LACTATED RINGERS 1,000 ML IV ONE (23:43)
[2018-02-03 23:55] LABS: BASOPHILS % (AUTO) 0 % (0-10); EOSINOPHILS # (AUTO) 0.1 10^3/uL (0.0-0.3); EOSINOPHILS % (AUTO) 1 % (0-10); HEMATOCRIT 37 % (35-52); HEMOGLOBIN 11.9 G/DL (11.5-16.0); LYMPHOCYTES # (AUTO) 4.4 X 10^3 (1.0-4.0); LYMPHOCYTES % (AUTO) 50 % (12-44); MEAN CORPUSCULAR HEMOGLOBIN 32 PG (25-34); MEAN CORPUSCULAR HGB CONC 33 G/DL (32-36); MEAN CORPUSCULAR VOLUME 98 FL (80-99); MEAN PLATELET VOLUME 10.3 FL (7.4-10.4); MONOCYTES # (AUTO) 0.6 X 10^3 (0.0-1.0); MONOCYTES % (AUTO) 7 % (0-12); NEUTROPHILS # (AUTO) 3.7 X 10^3 (1.8-7.8); NEUTROPHILS % (AUTO) 42 % (42-75); PLATELET COUNT 299 10^3/uL (130-400); RED BLOOD COUNT 3.75 10^6/uL (4.35-5.85); RED CELL DISTRIBUTION WIDTH 14.7 % (10.0-14.5); WHITE BLOOD COUNT 8.8 10^3/uL (4.3-11.0)
[2018-02-03] MEDS ORDERED: NORG1TAB81 (23:55)
[2018-02-03] MEDS ORDERED: EREN70AU (23:55)
[2018-02-03] MEDS ORDERED: ONDANSETRON 4 MG/2 ML (SDV) Z0FRAN ONE (23:56)
[2018-02-04] MEDS ORDERED: ONDANSETRON 4 MG/2 ML (SDV) Z0FRAN IVP ONE
[2018-02-04 00:12] LABS: BILIRUBIN,URINE NEGATIVE (NEGATIVE); CLARITY,URINE CLEAR; COLOR,URINE YELLOW; GLUCOSE, URINE (UA) NEGATIVE (NEGATIVE); KETONES,URINE NEGATIVE (NEGATIVE); LEUKOCYTE ESTERASE ,URINE 1+ (NEGATIVE); NITRITE,URINE NEGATIVE (NEGATIVE); PH,URINE 6 (5-9); PROTEIN,URINE 2+ (NEGATIVE); UROBILINOGEN,URINE NORMAL (NORMAL)
[2018-02-04 00:21] LABS: ALANINE AMINOTRANSFERASE 12 U/L (0-55); ALBUMIN 3.8 GM/DL (3.2-4.5); ALKALINE PHOSPHATASE 41 U/L (40-136); BILIRUBIN,TOTAL 0.1 MG/DL (0.1-1.0); BUN/CREATININE RATIO 18; CARBON DIOXIDE 19 MMOL/L (21-32); CHLORIDE 111 MMOL/L (98-107); CREATINE KINASE 75 U/L (29-168); CREATININE SERUM 0.74 MG/DL (0.60-1.30); GFR ESTIMATED > 60; GLUCOSE 104 MG/DL (70-105); POTASSIUM 4.1 MMOL/L (3.6-5.0); SODIUM 141 MMOL/L (135-145); TOTAL PROTEIN 6.6 GM/DL (6.4-8.2)
[2018-02-04 00:29] LABS: AMPHETAMINE SCREEN, URINE NEGATIVE (NEGATIVE); BARBITURATE SCREEN URINE POSITIVE (NEGATIVE); BENZODIAZEPINES SCREEN URINE POSITIVE (NEGATIVE); CANNABINOID SCREEN, URINE NEGATIVE (NEGATIVE); COCAINE SCREEN URINE NEGATIVE (NEGATIVE); METHADONE STAT NEGATIVE (NEGATIVE); METHAMPHETAMINE SCREEN URINE S NEGATIVE (NEGATIVE); OPIATE SCREEN URINE NEGATIVE (NEGATIVE); OXYCODONE STAT NEGATIVE (NEGATIVE); PROPOXYPHENE STAT NEGATIVE (NEGATIVE); TRICYCLIC ANTIDEPRESSANTS SCRE NEGATIVE (NEGATIVE)
[2018-02-04 00:30] LABS: BACTERIA,URINE FEW /HPF; WBC,URINE RARE /HPF
[2018-02-04] MEDS ORDERED: NS IV 1000 ML 1,000 ML IV ONE (00:53)
[2018-02-04] MEDS ORDERED: ONDN4T PO (01:20)
[2018-02-04] MEDS ORDERED: RX-ONDANSETRON 4 MG ODT (ZOFRAN) PPK #4 PO STA (01:20)
[2018-02-04] MEDS ORDERED: RX-ONDANSETRON 4 MG ODT (ZOFRAN) PPK #4 ONE (01:21)
--- NOTE | 2018-02-04 01:21 | ED General ---
General Chief Complaint: Neurological Problems Stated Complaint: SEIZURE Nursing Triage Note: BROUGHT IN BY [facility] S/P SEIZURE. PT REPORTS N/V X3 DAYS. C/O HEAD/NECK PAIN Nursing Sepsis Screen: No Definite Risk Source of Information: Patient, EMS, Old Records History of Present Illness Date Seen by Provider: Feb 03, 2018 Time Seen by Provider: 23:42 Initial Comments PT ARRIVES VIA EMS FROM HOME. NO FAMILY OR BOYFRIEND ACCOMPANIES PT TO ER, AND NO ONE CALLS PT DURING ER STAY PT REPORTEDLY HAD SEIZURE ACTIVITY TONIGHT--LASTING 15-20 SECONDS, PER EMS. NO POST ICTAL SYMPTOMS NO INJURY, BUT C/O HEAD, NECK AND BACK PAIN NO INCONTINENCE NO BITING OF TONGUE STATES SHE WAS WALKING IN THE HOUSE AND WAS TALKING TO HER MOTHER AND THAT IS THE LAST THING SHE REMEMBERS. STATES SHE WOKE UP SITTING ON THE FLOOR. STATES SHE HAS BEEN ARGUING WITH HER BOYFRIEND ALL DAY TODAY AND YESTERDAY AND WAS VERY UPSET TONIGHT WHEN THIS OCCURRED. EMS REPORT THAT BOYFRIEND WAS VERY BELLIGERENT WITH THEM AT THE SCENE. PT DOES NOT HAVE A HISTORY OF SEIZURES PT STATES SHE HAS HAD A MIGRAINE TODAY--PT HAS CHRONIC HEADACHE/ "MIGRAINE" COMPLAINTS AND HAS HAD A MULTITUDE OF ER VISITS FOR HEADACHES WELL OTHER VARIOUS COMPLAINTS. PT HAS HAD 12 VISITS IN 2018. PT STATES SHE SEES 2 NEUROLOGISTS --SEES DR. VILLALOBOS HERE IN [place], AND ALSO SEES A NEUROLOGIST IN [place] WELL. STATES SHE JUST GOT STARTED ON A NEW MEDICATION FOR MIGRAINES--AIMOVIG--AND HAD HER FIRST MONTHLY INJECTION 01/28/18. SEEN AND PRESCRIBED BY HER NEUROLOGIST IN ON 01/15/18. STATES SHE HAS NOT MISSED ANY DOSES OF HER OTHER MEDICATIONS PT STATES SHE HAS HAD NAUSEA AND VOMITING X 3 DAYS NO DIARRHEA NO ABDOMINAL PAIN NO FEVER HAS HAD ONGOING HEADACHE FOR 3 DAYS WELL. NO VISION CHANGES STILL URINATING A NORMAL AMOUNT FIRST STATES SHE HAS NOT HAD ANY THING TO EAT OR DRINK ALL DAY TODAY, THEN "SUDDENLY" REMEMBERS ON DIRECT QUESTIONING THAT SHE DID EAT SANDWICH WITH LUNCH MEAT, AND DORITO'S FOR LUNCH, AND HAD CHICKEN NUGGETS AND CHADIAN FRIES FOR DINNER TONIGHT. PT VOMITED X 1 ON ARRIVAL--UNDIGESTED FOOD, AND THEN QUESTIONED PT ON WHAT SHE HAD TO EAT TODAY AND WHEN AND IS WHEN SHE SUDDENLY RECALLS THAT SHE DID EAT NORMALLY TODAY. DESPITE HER ONGOING NAUSEA AND VOMITING LMP 01/11/18--PERIODS ALWAYS IRREGULAR --STATES SHE HAS AN IUD IN PLACE AND IS ALSO ON OCP'S PCP:DR. SHAH--SEEN 01/24 FOR ROUTINE FOLLOW UP NEUROLOGIST IN --SEEN 01/15 DR. VILLALOBOS, LOCAL NEUROLOGIST--HAS NOT SEEN HIM IN A FEW MONTHS. Allergies and Home Medications Allergies Coded Allergies: sumatriptan (Unverified Allergy, Severe, ANAPHYLAXIS, 09/20/13) Penicillins (Unverified Allergy, Unknown, 09/20/13) sumatriptan succinate (Verified Adverse Reaction, Mild, 04/01/11) Home Medications Ibuprofen 600 Mg Tablet, 600 MG PO Q6H PRN for PAIN, (Reported) Ondansetron HCl 4 Mg Tab, 4 MG PO Q4H Prescribed by: YE CARBALLO on 02/04/18 0120 Patient Home Medication List Home Medication List Reviewed: Yes Review of Systems Review of Systems Constitutional: no symptoms reported; No chills, No diaphoresis, No dizziness, No fever EENTM: no symptoms reported Respiratory: no symptoms reported Cardiovascular: no symptoms reported Gastrointestinal: see HPI; No abdominal pain, No constipation, No diarrhea, No loss of appetite; nausea, vomiting Genitourinary: no symptoms reported; No decreased output, No dysuria : No Musculoskeletal: see HPI, back pain, neck pain Skin: no symptoms reported Psychiatric/Neurological: See HPI, Headache; Denies Numbness, Denies Paresthesia; Seizure; Denies Tingling, Denies Tremors, Denies Weakness Hematologic/Lymphatic: No Symptoms Reported Immunological/Allergic: no symptoms reported Past Jfwntrj-Qgkzyh-Qwkynh Hx Patient Social History Alcohol Use: Denies Use Recreational Drug Use: No Smoking Status: Current Everyday Smoker Type Used: Cigarettes 2nd Hand Smoke Exposure: Yes Recent Foreign Travel: No Contact w/Someone Who Travel: No Recent Infectious Disease Expo: No Recent Hopitalizations: No Immunizations Up To Date Tetanus Booster (TDap): Unknown PED Vaccines UTD: Yes Date of Influenza Vaccine: Jan 08, 2013 Seasonal Allergies Seasonal Allergies: Yes Past Medical History Surgeries: Yes (SINUS, EXPL LAP, EAR TUBES, perineal tear repair) Abdominal, Appendectomy, Ear Surgery, Eye Surgery Respiratory: No Cardiac: No Neurological: Yes Headaches /Migraines : No 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 Disorders: No Female 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 Disorders: Denies, Menstrual Problems, Endometriosis 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 Genitourinary: Yes (interstitial cystitis) Bladder Infection Gastrointestinal: Yes Gastroesophageal Reflux Musculoskeletal: No Endocrine: No HEENT: No Cancer: No Psychosocial: Yes Sleep Difficulties, Anxiety, PTSD, Depression Integumentary: No Blood Disorders: No Adverse Reaction/Blood Tranf: No Family Medical History FH: bipolar disorder 19 FATHER 19 MOTHER No Pertinent Family Hx Physical Exam Vital Signs Vital Signs - First Documented 02/03/18 23:43 Temp 98.3 Pulse 89 Resp 23 B/P (MAP) 118/86 (97) Pulse Ox 100 O2 Delivery Room Air Capillary Refill : Less Than 3 Seconds Height, Weight, BMI Height: 5'4.00" Weight: 115lbs. 0oz. 52.046366ac; 31.2 BMI Method:Stated General Appearance: No Apparent Distress, WD/WN, Other (PT SMILING AND DOES NOT APPEAR POST ICTAL ON ARRIVAL. NO INCONTINENCE. ) HEENT: PERRL/EOMI, Normal ENT Inspection Neck: Full Range of Motion, Normal Inspection, Non Tender, Supple Respiratory: Normal Breath Sounds, No Accessory Muscle Use, No Respiratory Distress Cardiovascular: Regular Rate, Rhythm, No Edema, No JVD, No Murmur, Normal Peripheral Pulses Gastrointestinal: Normal Bowel Sounds, No Organomegaly, No Pulsatile Mass, Non Tender, Soft Back: Normal Inspection, No CVA Tenderness, No Vertebral Tenderness Extremity: Normal Capillary Refill, Normal Inspection, Normal Range of Motion, Non Tender, No Calf Tenderness, No Pedal Edema 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: Alert, Oriented x3, No Motor/Sensory Deficits, Normal Mood/Affect, ivory carver II-XII Norm as Tested Skin: Normal Color, Warm/Dry Progress/Results/Core Measures Suspected Sepsis Recent Fever Within 48 Hours: No Infection Criteria Present: None New/Unexplained Altered Menta: No Sepsis Screen: No Definite Risk SIRS Temperature:98.3 Pulse: 89 Respiratory Rate: 23 Laboratory Tests 02/03/18 23:47: White Blood Count 8.8 Blood Pressure 118 /86 Mean: 97 Laboratory Tests 02/03/18 23:47: Creatinine 0.74, Platelet Count 299, Total Bilirubin 0.1 Results/Orders Lab Results Laboratory Tests Test 02/03/18 23:47 11/28/18 00:05 Range/Units White Blood Count 8.8 4.3-11.0 10^3/uL Red Blood Count 3.75 L 4.35-5.85 10^6/uL Hemoglobin 11.9 11.5-16.0 G/DL Hematocrit 37 35-52 % Mean Corpuscular Volume 98 80-99 FL Mean Corpuscular Hemoglobin 32 25-34 PG Mean Corpuscular Hemoglobin Concent 33 32-36 G/DL Red Cell Distribution Width 14.7 H 10.0-14.5 % Platelet Count 299 130-400 10^3/uL Mean Platelet Volume 10.3 7.4-10.4 FL Neutrophils (%) (Auto) 42 42-75 % Lymphocytes (%) (Auto) 50 H 12-44 % Monocytes (%) (Auto) 7 0-12 % Eosinophils (%) (Auto) 1 0-10 % Basophils (%) (Auto) 0 0-10 % Neutrophils # (Auto) 3.7 1.8-7.8 X 10^3 Lymphocytes # (Auto) 4.4 H 1.0-4.0 X 10^3 Monocytes # (Auto) 0.6 0.0-1.0 X 10^3 Eosinophils # (Auto) 0.1 0.0-0.3 10^3/uL Basophils # (Auto) 0.0 0.0-0.1 10^3/uL Sodium Level 141 135-145 MMOL/L Potassium Level 4.1 3.6-5.0 MMOL/L Chloride Level 111 H 98-107 MMOL/L Carbon Dioxide Level 19 L 21-32 MMOL/L Anion Gap 11 5-14 MMOL/L Blood Urea Nitrogen 13 7-18 MG/DL Creatinine 0.74 0.60-1.30 MG/DL Estimat Glomerular Filtration Rate > 60 BUN/Creatinine Ratio 18 Glucose Level 104 70-105 MG/DL Calcium Level 9.0 8.5-10.1 MG/DL Corrected Calcium 9.2 8.5-10.1 MG/DL Magnesium Level 2.0 1.8-2.4 MG/DL Total Bilirubin 0.1 0.1-1.0 MG/DL Aspartate Amino Transf (AST/SGOT) 19 5-34 U/L Alanine Aminotransferase (ALT/SGPT) 12 0-55 U/L Alkaline Phosphatase 41 40-136 U/L Total Creatine Kinase 75 29-168 U/L Total Protein 6.6 6.4-8.2 GM/DL Albumin 3.8 3.2-4.5 GM/DL Serum Test, Qualitative NEGATIVE NEGATIVE Serum Alcohol < 10 <10 MG/DL Urine Color YELLOW Urine Clarity CLEAR Urine pH 6 5-9 Urine Specific [place] 1.025 H 1.016-1.022 Urine Protein 2+ H NEGATIVE Urine Glucose (UA) NEGATIVE NEGATIVE Urine Ketones NEGATIVE NEGATIVE Urine Nitrite NEGATIVE NEGATIVE Urine Bilirubin NEGATIVE NEGATIVE Urine Urobilinogen NORMAL NORMAL MG/DL Urine Leukocyte Esterase 1+ H NEGATIVE Urine RBC (Auto) NEGATIVE NEGATIVE Urine RBC NONE /HPF Urine WBC RARE /HPF Urine Squamous Epithelial Cells 2-5 /HPF Urine Crystals NONE /LPF Urine Bacteria FEW H /HPF Urine Casts NONE /LPF Urine Mucus LARGE H /LPF Urine Culture Indicated NO Urine Opiates Screen NEGATIVE NEGATIVE Urine Oxycodone Screen NEGATIVE NEGATIVE Urine Methadone Screen NEGATIVE NEGATIVE Urine Propoxyphene Screen NEGATIVE NEGATIVE Urine Barbiturates Screen POSITIVE H NEGATIVE Ur Tricyclic Antidepressants Screen NEGATIVE NEGATIVE Urine Phencyclidine Screen NEGATIVE NEGATIVE Urine Amphetamines Screen NEGATIVE NEGATIVE Urine Methamphetamines Screen NEGATIVE NEGATIVE Urine Benzodiazepines Screen POSITIVE H NEGATIVE Urine Cocaine Screen NEGATIVE NEGATIVE Urine Cannabinoids Screen NEGATIVE NEGATIVE My Orders Orders - YE CARBALLO K DO Saline Lock/Iv-Start (02/03/18 23:43) Monitor-Rhythm Ecg Trace Only (02/03/18 23:43) Alcohol (02/03/18 23:43) Cbc With Automated Diff (02/03/18 23:43) Comprehensive Metabolic Panel (02/03/18 23:43) Creatine Kinase (02/03/18 23:43) Drug Screen Stat (Urine) (02/03/18 23:43) Hcg,Qualitative Serum (02/03/18 23:43) Magnesium (02/03/18 23:43) Ua Culture If Indicated (02/03/18 23:43) Saline Lock/Iv-Start (02/03/18 23:43) Lactated Ringers (Lr 1000 Ml Iv Solution (02/03/18 23:43) Ondansetron Injection (Zofran Injectio (02/03/18 23:56) Ondansetron Injection (Zofran Injectio (02/04/18 00:00) Ct Head Wo (02/04/18 00:01) Saline Lock/Iv-Start (02/04/18 00:53) Ns Iv 1000 Ml (Sodium Chloride 0.9%) (02/04/18 00:53) Rx-Ondansetron Po (Rx-Zofran Po) (02/04/18 01:20) Rx-Ondansetron Po (Rx-Zofran Po) (02/04/18 01:21) Medications Given in ED Current Medications Medications Dose Ordered Sig/Janine Route Start Time Stop Time Status Last Admin Dose Admin Lactated Ringer's 1,000 ml @ 0 mls/hr Q0M ONCE IV 02/03/18 23:43 02/03/18 23:44 DC 02/03/18 23:46 0 MLS/HR Ondansetron HCl 8 mg ONCE ONCE IVP 02/04/18 00:00 02/04/18 00:01 DC 02/04/18 00:00 8 MG Sodium Chloride 1,000 ml @ 0 mls/hr Q0M ONCE IV 02/04/18 00:53 02/04/18 00:55 DC 02/04/18 00:59 0 MLS/HR Vital Signs/I&O 02/03/18 02/04/18 23:43 01:35 Temp 98.3 98.1 Pulse 89 78 Resp 23 18 B/P (MAP) 118/86 (97) 112/71 (85) Pulse Ox 100 100 O2 Delivery Room Air Room Air Capillary Refill : Less Than 3 Seconds Blood Pressure Mean: 97 Progress Note : Progress Note PT DID VOMIT X 1 SHORTLY AFTER ARRIVAL. GIVEN ZOFRAN. NAUSEA AND HEADACHE RESOLVED PT HAD NO FURTHER COMPLAINTS OF HEADACHE, NO NECK PAIN AND NO BACK PAIN OR PAIN ANYWHERE ELSE FOR REMAINDER OF ER STAY PT AMBULATES TO AND FROM BATHROOM WITHOUT DIFFICULTY. PT TOLERATING ICE CHIPS AND WATER AND STATES SHE FEELS MUCH BETTER. NO DETERIORATION IN PT'S CONDITION DURING ER STAY NO SEIZURES IN ER Diagnostic Imaging Comments CT HEAD--NO ACUTE PROCESS, PER [facility] VIA FAX @ [phone] Reviewed: Reviewed by Me Departure Impression Primary Impression: REPORTED SEIZURE-LIKE ACTIVITY-NEW ONSET Additional Impressions: Chronic headaches Nausea and vomiting in adult Disposition: 01 HOME, SELF-CARE Condition: Improved Departure-Patient Inst. Referrals: WISAM SHAH DO (PCP/Family) Primary Care Physician JOCELYNE VILLALOBOS MD Patient Instructions: Headache, Adult (DC), Nausea and Vomiting, Adult (DC), Seizures, Adult (DC) Add. Discharge Instructions: LOTS OF CLEAR LIQUIDS--WATER, BROTH, JELLO, GATORADE TOMORROW IF YOU ARE BETTER, ADD BRATS DIET TO CLEAR LIQUIDS--BANANAS, RICE, APPLESAUCE, TOAST, SALTINES CONTINUE YOUR REGULAR MEDICATIONS PRESCRIBED NO DRIVING OF ANY KIND OR OPERATING ANY MACHINERY UNTIL YOU ARE CLEARED BY YOUR NEUROLOGIST FOLLOW UP WITH DR. SHAH TOMORROW FOLLOW UP WITH DR. VILLALOBOS AND/OR YOUR NEUROLOGIST IN [place] THIS WEEK FOR FURTHER CARE All discharge instructions reviewed with patient and/or family. Voiced understanding. Scripts Ondansetron HCl (Zofran) 4 Mg Tab 4 MG PO Q4H for Nausea/Vomiting, #10 TAB Prov: YE CARBALLO DO 02/04/18 YE CARBALLO DO Feb 04, 2018 01:21
[2018-02-04 01:35] VITALS: BP 112/71
--- NOTE | 2018-02-04 07:14 | Diagnostic Imaging Report ---
PROCEDURE: CT head without contrast. TECHNIQUE: Multiple contiguous axial images were obtained through the brain without the use of intravenous contrast. INDICATION: Seizure. Comparison: 07/27/2013 Findings: No hyperdense hemorrhage or space-occupying mass. No hydrocephalus or midline shift. The basilar cisterns are normal. Sanchez-white matter differentiation is well preserved. The mastoid air cells are clear. Paranasal sinuses are normal. No focal osseous abnormality of the calvarium. Impression: No acute intracranial process. Findings are in agreement with the preliminary report. Dictated by: Dictated on workstation # [id number]
== END 2018-02-04 01:35 | disposition home or self-care (01) ==
LOC: EDUNIT# 23:40 → ER 23:43
DX: R56.9 Unspecified convulsions (principal); R51 Headache; G89.29 Other chronic pain; R11.2 Nausea with vomiting, unspecified; K21.9 Gastro-esophageal reflux disease without esophagitis; F41.9 Anxiety disorder, unspecified; F43.10 Post-traumatic stress disorder, unspecified; F32.9 Major depressive disorder, single episode, unspecified; F17.210 Nicotine dependence, cigarettes, uncomplicated; Z98.84 Bariatric surgery status; Z97.5 Presence of (intrauterine) contraceptive device; Z88.0 Allergy status to penicillin; Z88.8 Allergy status to other drugs, medicaments and biological substances; Z98.890 Other specified postprocedural states; Z90.49 Acquired absence of other specified parts of digestive tract
CPT/HCPCS: 36415; 70450; 80053; 80306; 80320; 81000; 82550; 83735; 84703; 85025; 93041

== ENCOUNTER 2018-02-07 17:02 | Emergency (ER) | payer MEDICARE, MEDICAID ==
[~2018-02-07] VITALS: Ht 162.6 cm; Wt 49.9 kg
[~2018-02-07 17:02] MED LIST changes: +EREN70AU; +NORG1TAB81; +ONDN4T PO
[2018-02-07] MEDS ORDERED: ONDANSETRON 4 MG/2 ML (SDV) Z0FRAN IVP ONE (17:15)
[2018-02-07] MEDS ORDERED: NS IV 1000 ML 1,000 ML IV SCH (17:15)
--- NOTE | 2018-02-07 17:20 | ED GI ---
General Stated Complaint: WEAKNESS Source of Information: Patient, EMS Exam Limitations: No Limitations History of Present Illness Date Seen by Provider: Feb 07, 2018 Time Seen by Provider: 17:17 Initial Comments This 27-year-old female presents with a history of a syncopal episode while sitting on the commode shortly prior to presentation to the emergency department. The patient had associated nausea with her diarrhea. She denies headache, lateralizing or localizing neurologic complaints, chest pain, palpitations, shortness of breath, productive cough, hematemesis or melena. Allergies and Home Medications Allergies Coded Allergies: sumatriptan (Unverified Allergy, Severe, ANAPHYLAXIS, 09/20/13) Penicillins (Unverified Allergy, Unknown, 09/20/13) sumatriptan succinate (Verified Adverse Reaction, Mild, 04/01/11) Home Medications Ibuprofen 600 Mg Tablet, 600 MG PO Q6H PRN for PAIN, (Reported) Ondansetron HCl 4 Mg Tab, 4 MG PO Q4H Prescribed by: YE CARBALLO on 02/04/18 0120 Patient Home Medication List Home Medication List Reviewed: Yes Review of Systems Review of Systems Constitutional: No chills, No fever; weakness EENTM: No Blurred Vision, No Ear Pain Respiratory: Denies Cough, Denies SOA at Rest Cardiovascular: Denies Chest Pain, Denies Palpitations Gastrointestinal: Denies Abdominal Pain; Diarrhea, Nausea, Vomiting Genitourinary: Denies Burning, Denies Frequency Musculoskeletal: No back pain Skin: No change in color, No rash Psychiatric/Neurological: Headache (patient has a history of migraines.), Seizure (patient has a questionable history of seizures.) Endocrine: No Symptoms Reported Hematologic/Lymphatic: No Symptoms Reported Past Zynieqc-Dqoyqk-Tbqogz Hx Past Med/Social Hx: Reviewed Nursing Past Med/Soc Hx Patient Social History Type Used: Cigarettes 2nd Hand Smoke Exposure: Yes Recent Hopitalizations: No Immunizations Up To Date Tetanus Booster (TDap): Unknown PED Vaccines UTD: Yes Date of Influenza Vaccine: Jan 08, 2013 Seasonal Allergies Seasonal Allergies: Yes Past Medical History Surgeries: Yes (SINUS, EXPL LAP, EAR TUBES, perineal tear repair) Abdominal, Appendectomy, Ear Surgery, Eye Surgery Respiratory: No Cardiac: No Neurological: Yes Headaches /Migraines 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 Disorders: No Female 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 Disorders: Denies, Menstrual Problems, Endometriosis 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 Genitourinary: Yes (interstitial cystitis) Bladder Infection Gastrointestinal: Yes Gastroesophageal Reflux Musculoskeletal: No Endocrine: No HEENT: No Cancer: No Psychosocial: Yes Sleep Difficulties, Anxiety, PTSD, Depression Integumentary: No Blood Disorders: No Adverse Reaction/Blood Tranf: No Family Medical History FH: bipolar disorder 19 FATHER 19 MOTHER No Pertinent Family Hx Physical Exam Vital Signs Vital Signs - First Documented 02/07/18 17:15 Temp 97.9 Pulse 91 Resp 20 B/P (MAP) 110/75 (87) Pulse Ox 100 O2 Delivery Room Air Capillary Refill : Height/Weight/BMI Height: 5'4.00" Weight: 115lbs. 0oz. 52.734752kp; 31.2 BMI Method:Stated General Appearance: WD/WN, no apparent distress HEENT: normal ENT inspection Neck: full range of motion, supple, normal inspection Respiratory: chest non-tender, lungs clear, normal breath sounds Cardiovascular: normal peripheral pulses, regular rate, rhythm Gastrointestinal: normal bowel sounds, non tender, soft Extremities: normal range of motion, non-tender, normal inspection Back: normal inspection, no CVA tenderness 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: no motor/sensory deficits, alert, normal mood/affect, oriented x 3 Skin: normal color, warm/dry Progress/Results/Core Measures Results/Orders Lab Results Laboratory Tests Test 02/07/18 17:28 02/07/18 17:37 Range/Units Urine Color YELLOW Urine Clarity SLIGHTLY CLOUDY Urine pH 6.5 5-9 Urine Specific [place] 1.015 L 1.016-1.022 Urine Protein 2+ H NEGATIVE Urine Glucose (UA) NEGATIVE NEGATIVE Urine Ketones 1+ H NEGATIVE Urine Nitrite NEGATIVE NEGATIVE Urine Bilirubin 1+ H NEGATIVE Urine Urobilinogen 4 H NORMAL MG/DL Urine Leukocyte Esterase 1+ H NEGATIVE Urine RBC (Auto) NEGATIVE NEGATIVE Urine RBC RARE /HPF Urine WBC 0-2 /HPF Urine Squamous Epithelial Cells 2-5 /HPF Urine Crystals NONE /LPF Urine Bacteria NEGATIVE /HPF Urine Casts NONE /LPF Urine Mucus LARGE H /LPF Urine Culture Indicated NO White Blood Count 9.7 4.3-11.0 10^3/uL Red Blood Count 4.45 4.35-5.85 10^6/uL Hemoglobin 14.0 11.5-16.0 G/DL Hematocrit 42 35-52 % Mean Corpuscular Volume 94 80-99 FL Mean Corpuscular Hemoglobin 32 25-34 PG Mean Corpuscular Hemoglobin Concent 34 32-36 G/DL Red Cell Distribution Width 14.3 10.0-14.5 % Platelet Count 333 130-400 10^3/uL Mean Platelet Volume 9.8 7.4-10.4 FL Neutrophils (%) (Auto) 56 42-75 % Lymphocytes (%) (Auto) 37 12-44 % Monocytes (%) (Auto) 6 0-12 % Eosinophils (%) (Auto) 1 0-10 % Basophils (%) (Auto) 1 0-10 % Neutrophils # (Auto) 5.4 1.8-7.8 X 10^3 Lymphocytes # (Auto) 3.6 1.0-4.0 X 10^3 Monocytes # (Auto) 0.5 0.0-1.0 X 10^3 Eosinophils # (Auto) 0.1 0.0-0.3 10^3/uL Basophils # (Auto) 0.1 0.0-0.1 10^3/uL Sodium Level 141 135-145 MMOL/L Potassium Level 3.7 3.6-5.0 MMOL/L Chloride Level 105 98-107 MMOL/L Carbon Dioxide Level 25 21-32 MMOL/L Anion Gap 11 5-14 MMOL/L Blood Urea Nitrogen 8 7-18 MG/DL Creatinine 0.66 0.60-1.30 MG/DL Estimat Glomerular Filtration Rate > 60 BUN/Creatinine Ratio 12 Glucose Level 96 70-105 MG/DL Calcium Level 10.3 H 8.5-10.1 MG/DL Corrected Calcium 8.5-10.1 MG/DL Total Bilirubin 0.3 0.1-1.0 MG/DL Aspartate Amino Transf (AST/SGOT) 14 5-34 U/L Alanine Aminotransferase (ALT/SGPT) 13 0-55 U/L Alkaline Phosphatase 62 40-136 U/L Total Protein 8.1 6.4-8.2 GM/DL Albumin 4.9 H 3.2-4.5 GM/DL Lipase 25 8-78 U/L My Orders Orders - FADI DAVE MD Cbc With Automated Diff (02/07/18 17:12) Comprehensive Metabolic Panel (02/07/18 17:12) Ua Culture If Indicated (02/07/18 17:12) Lipase (02/07/18 17:12) Ns Iv 1000 Ml (Sodium Chloride 0.9%) (02/07/18 17:15) Ondansetron Injection (Zofran Injectio (02/07/18 17:15) Vital Signs/I&O 02/07/18 17:15 Temp 97.9 Pulse 91 Resp 20 B/P (MAP) 110/75 (87) Pulse Ox 100 O2 Delivery Room Air Progress Progress Note : Time: 18:09 Progress Note Patient received a liter of normal saline and 4 mg of Zofran IV. Departure Impression Primary Impression: Viral gastroenteritis Additional Impression: Nausea and vomiting Qualified Codes: R11.2 - Nausea with vomiting, unspecified Disposition: 01 HOME, SELF-CARE Condition: Improved Departure-Patient Inst. Decision time for Depature: 18:10 Referrals: WISAM SHAH DO (PCP/Family) Primary Care Physician Patient Instructions: Viral Gastroenteritis, Adult (DC) Add. Discharge Instructions: Clear liquids tonight. Zofran for nausea. Close follow-up with Dr. Mclaughlin on Friday. Return if any problems or questions. FADI DAVE MD Feb 07, 2018 17:20
[2018-02-07 17:43] LABS: BASOPHILS # (AUTO) 0.1 10^3/uL (0.0-0.1); BASOPHILS % (AUTO) 1 % (0-10); EOSINOPHILS # (AUTO) 0.1 10^3/uL (0.0-0.3); EOSINOPHILS % (AUTO) 1 % (0-10); HEMATOCRIT 42 % (35-52); LYMPHOCYTES # (AUTO) 3.6 X 10^3 (1.0-4.0); LYMPHOCYTES % (AUTO) 37 % (12-44); MEAN CORPUSCULAR HEMOGLOBIN 32 PG (25-34); MEAN CORPUSCULAR HGB CONC 34 G/DL (32-36); MEAN CORPUSCULAR VOLUME 94 FL (80-99); MEAN PLATELET VOLUME 9.8 FL (7.4-10.4); MONOCYTES # (AUTO) 0.5 X 10^3 (0.0-1.0); MONOCYTES % (AUTO) 6 % (0-12); NEUTROPHILS # (AUTO) 5.4 X 10^3 (1.8-7.8); NEUTROPHILS % (AUTO) 56 % (42-75); PLATELET COUNT 333 10^3/uL (130-400); RED BLOOD COUNT 4.45 10^6/uL (4.35-5.85); RED CELL DISTRIBUTION WIDTH 14.3 % (10.0-14.5); WHITE BLOOD COUNT 9.7 10^3/uL (4.3-11.0)
[2018-02-07 17:51] LABS: CLARITY,URINE SLIGHTLY CLOUDY; COLOR,URINE YELLOW; GLUCOSE, URINE (UA) NEGATIVE (NEGATIVE); KETONES,URINE 1+ (NEGATIVE); LEUKOCYTE ESTERASE ,URINE 1+ (NEGATIVE); NITRITE,URINE NEGATIVE (NEGATIVE); PH,URINE 6.5 (5-9); PROTEIN,URINE 2+ (NEGATIVE); UROBILINOGEN,URINE 4 MG/DL (NORMAL)
[2018-02-07 17:58] LABS: BACTERIA,URINE NEGATIVE /HPF; BILIRUBIN,URINE 1+ (NEGATIVE); RBC,URINE RARE /HPF; WBC,URINE 0-2 /HPF
[2018-02-07 18:07] LABS: ALANINE AMINOTRANSFERASE 13 U/L (0-55); ALBUMIN 4.9 GM/DL (3.2-4.5); ALKALINE PHOSPHATASE 62 U/L (40-136); BILIRUBIN,TOTAL 0.3 MG/DL (0.1-1.0); BUN/CREATININE RATIO 12; CALCIUM 10.3 MG/DL (8.5-10.1); CARBON DIOXIDE 25 MMOL/L (21-32); CHLORIDE 105 MMOL/L (98-107); CREATININE SERUM 0.66 MG/DL (0.60-1.30); GFR ESTIMATED > 60; GLUCOSE 96 MG/DL (70-105); LIPASE 25 U/L (8-78); POTASSIUM 3.7 MMOL/L (3.6-5.0); SODIUM 141 MMOL/L (135-145); TOTAL PROTEIN 8.1 GM/DL (6.4-8.2)
[2018-02-07 20:15] VITALS: BP 110/75
== END 2018-02-07 20:15 | disposition home or self-care (01) ==
LOC: ER 17:02 → EDUNIT# 17:02 → ER 20:15
DX: A08.4 Viral intestinal infection, unspecified (principal); G43.909 Migraine, unspecified, not intractable, without status migrainosus; K21.9 Gastro-esophageal reflux disease without esophagitis; F41.9 Anxiety disorder, unspecified; F32.9 Major depressive disorder, single episode, unspecified; F43.10 Post-traumatic stress disorder, unspecified; Z87.448 Personal history of other diseases of urinary system; Z97.5 Presence of (intrauterine) contraceptive device; Z88.0 Allergy status to penicillin; Z88.8 Allergy status to other drugs, medicaments and biological substances; Z77.22 Contact with and (suspected) exposure to environmental tobacco smoke (acute) (chronic); Z90.49 Acquired absence of other specified parts of digestive tract; Z98.890 Other specified postprocedural states
CPT/HCPCS: 36415; 80053; 81000; 83690; 85025; 96374

== ENCOUNTER 2018-04-12 16:56 | Emergency (ER) | payer MEDICARE, MEDICAID ==
[~2018-04-12] VITALS: Ht 162.6 cm; Wt 49.9 kg
[~2018-04-12 16:56] MED LIST changes: +GABA800T10; -GABA800T2; +METR-145 PO; -METR-197 PO
[2018-04-12] MEDS ORDERED: AMOX500C2 PO (17:32)
--- NOTE | 2018-04-12 17:32 | ED EENT ---
History of Present Illness General Chief Complaint: Dental Problems/Pain Stated Complaint: JAW/NECK PAIN Nursing Triage Note: PT TO ED W/ C/O LT SIDE JAW PAIN ONSET X1 MOS, WORSE TODAY. REPORTS HAS SEEN PCP ET DENIES IMPROVEMENT. DOES REPORT SHE HAS AN APPT W/ A DENTIST TOMORROW. Source: patient Exam Limitations: no limitations History of Present Illness Date Seen by Provider: Apr 12, 2018 Time Seen by Provider: 17:29 Initial Comments 27-year-old female who presents to the emergency room with complaints of left lower jaw pain for one month that has become worse today. She reports that she has an appointment with the dentist tomorrow to have dental work done for her cavities. She has a large cavity that extends to the dentine at the location of her pain. Mild redness and swelling to the surrounding tissue of the tooth. See images for location. Timing/Duration: other (1 month) Associated Symptoms: tooth pain Allergies and Home Medications Allergies Coded Allergies: sumatriptan (Unverified Allergy, Severe, ANAPHYLAXIS, 09/20/13) Penicillins (Unverified Allergy, Unknown, 09/20/13) sumatriptan succinate (Verified Adverse Reaction, Mild, 04/01/11) Home Medications Clindamycin HCl 300 Mg Capsule, 300 MG PO Q6H Prescribed by: PANCHITO ANTOINE on 04/12/18 1737 Ibuprofen 600 Mg Tablet, 600 MG PO Q6H PRN for PAIN, (Reported) Ondansetron HCl 4 Mg Tab, 4 MG PO Q4H Prescribed by: YE CARBALLO on 02/04/18 0120 Patient Home Medication List Home Medication List Reviewed: Yes Review of Systems Review of Systems Constitutional: no symptoms reported, see HPI Mouth: loose teeth Throat: see HPI, pain (dnetal pain) All Other Systems Reviewed Negative Unless Noted: Yes Past Pcsspzb-Bridpd-Unugyn Hx Past Med/Social Hx: Reviewed Nursing Past Med/Soc Hx Patient Social History Alcohol Use: Denies Use Recreational Drug Use: No Smoking Status: Current Everyday Smoker Type Used: Cigarettes 2nd Hand Smoke Exposure: Yes Recent Foreign Travel: No Contact w/Someone Who Travel: No Recent Infectious Disease Expo: No Recent Hopitalizations: No Physical Abuse: No Sexual Abuse: No Mistreated: No Fear: No Immunizations Up To Date Tetanus Booster (TDap): Unknown PED Vaccines UTD: Yes Date of Influenza Vaccine: Jan 08, 2013 Seasonal Allergies Seasonal Allergies: Yes Past Medical History Surgeries: Yes (SINUS, EXPL LAP, EAR TUBES, perineal tear repair) Abdominal, Appendectomy, Ear Surgery, Eye Surgery Respiratory: No Cardiac: No Neurological: Yes Headaches /Migraines 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 Disorders: No Female 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 Disorders: Denies, Menstrual Problems, Endometriosis 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 Genitourinary: Yes (interstitial cystitis) Bladder Infection Gastrointestinal: Yes Gastroesophageal Reflux Musculoskeletal: No Endocrine: No HEENT: No Cancer: No Psychosocial: Yes Sleep Difficulties, Anxiety, PTSD, Depression Integumentary: No Blood Disorders: No Adverse Reaction/Blood Tranf: No Family Medical History Reviewed Nursing Family Hx FH: bipolar disorder 19 FATHER 19 MOTHER No Pertinent Family Hx Physical Exam Vital Signs Vital Signs - First Documented 04/12/18 17:11 Temp 98.8 Pulse 98 Resp 16 B/P (MAP) 122/83 (96) Pulse Ox 100 O2 Delivery Room Air Height, Weight, BMI Height: 5'4.00" Weight: 110lbs. 0oz. 49.085708cf; 31.2 BMI Method:Stated General Appearance: WD/WN, no apparent distress Eyes: bilateral eye normal inspection, bilateral eye PERRL, bilateral eye EOMI Ears: bilateral ear auricle normal, bilateral ear canal normal, bilateral ear TM normal Mouth/Throat: other (dental carries, tenderness, swelling, location on images. no drainage noted) Cardiovascular: normal peripheral pulses, regular rate, rhythm, no edema, no gallop, no JVD, no murmur Respiratory: chest non-tender, lungs clear, normal breath sounds, no respiratory distress, no accessory muscle use Progress/Results/Core Measures Results/Orders My Orders Vital Signs/I&O Blood Pressure Mean: 96 Departure Impression Primary Impression: Dental caries extending into dentine Additional Impression: Tooth abscess Disposition: 01 HOME, SELF-CARE Condition: Stable/Unchanged Departure-Patient Inst. Decision time for Depature: 17:31 Referrals: WISAM SHAH DO (PCP/Family) Primary Care Physician Patient Instructions: Tooth Abscess (DC) Add. Discharge Instructions: Take medications as directed. You can use [id number] topical medications to assist with numbing like Orajel. Keep your appointment with your dentist tomorrow morning for an appointment time. Return back to the emergency room for worsening symptoms or concerns as needed. All discharge instructions reviewed with patient and/or family. Voiced understanding. Scripts Clindamycin HCl (Clindamycin HCl) 300 Mg Capsule 300 MG PO Q6H for 7 Days, #28 CAP Prov: PANCHITO ANTOINE 04/12/18 Images Mouth/Nose 1 - Caries, Fracture Tooth, Swelling, Tenderness PANCHITO ANTOINE Apr 12, 2018 17:32
[2018-04-12] MEDS ORDERED: CLIN300C11 PO (17:37)
[2018-04-12] MEDS ORDERED: CLINDAMYCIN 150 MG (CLEOCIN) CAP PO ONE (17:45)
[2018-04-12] MEDS ORDERED: KETOROLAC 60 MG/2 ML VIAL IM ONE (17:45)
[2018-04-12 18:08] VITALS: BP 122/83
--- NOTE | 2018-04-12 18:08 | NUR ---
PT DISCHARGED TO HOME WITH INSTR. PT TO FILL RX PRESCRIBED, F/U W/ DENTIST TOMORROW SCHEDULED ET RETURN TO ED IF SYMPTOMS CHANGE OR GET WORSE. PT VOICED UNDERSTANDING. NO QUESTIONS.
== END 2018-04-12 18:08 | disposition home or self-care (01) ==
LOC: EDUNIT# 16:56 → ER 16:57
DX: K02.9 Dental caries, unspecified (principal); K04.7 Periapical abscess without sinus; G43.909 Migraine, unspecified, not intractable, without status migrainosus; F41.9 Anxiety disorder, unspecified; F32.9 Major depressive disorder, single episode, unspecified; F43.10 Post-traumatic stress disorder, unspecified; K21.9 Gastro-esophageal reflux disease without esophagitis; F17.210 Nicotine dependence, cigarettes, uncomplicated; Z97.5 Presence of (intrauterine) contraceptive device; Z87.448 Personal history of other diseases of urinary system; Z88.0 Allergy status to penicillin; Z90.49 Acquired absence of other specified parts of digestive tract; Z87.19 Personal history of other diseases of the digestive system; Z98.890 Other specified postprocedural states; Z88.8 Allergy status to other drugs, medicaments and biological substances
CPT/HCPCS: 99284

== ENCOUNTER → 2018-05-12 | Outpatient (CLI) | payer MEDICARE, MEDICAID ==
[~2018-05-12] MED LIST changes: +AMOX500C2 PO; +CLIN300C11 PO; +NORG1TAB19; -NORG1TAB81
--- NOTE | 2018-05-12 13:43 | Diagnostic Imaging Report ---
INDICATION: Lower abdominal pain, chronic in nature. New onset vomiting and constipation x1 week. TECHNIQUE: Single supine view of the abdomen 12:17 PM. CORRELATION STUDY: None. FINDINGS: There are scattered gas filled loops of bowel present, relatively unremarkable appearance. No findings to suggest high degree bowel obstruction. No significant fecal impaction. No pathologic intra-abdominal calcifications. Findings compatible with an intrauterine contraceptive device is present. IMPRESSION: 1. Nonobstructive appearing bowel gas pattern. Dictated by: Dictated on workstation # [id number]
== END ==
LOC: RAD 12:01
PROVIDERS: ATTEND Family Medicine
DX: R10.30 Lower abdominal pain, unspecified (principal); Z97.5 Presence of (intrauterine) contraceptive device
CPT/HCPCS: 74018

== ENCOUNTER 2018-08-10 19:17 | Emergency (ER) | payer MEDICARE, MEDICAID ==
[~2018-08-10] VITALS: Ht 162.6 cm; Wt 47.6 kg
[2018-08-10] MEDS ORDERED: AZIT250T12 PO (20:17)
[2018-08-10] MEDS ORDERED: PRD20T PO (20:17)
--- NOTE | 2018-08-10 20:20 | ED Cough/URI ---
General Chief Complaint: Respiratory Problems Stated Complaint: BACK AND CHEST PAIN Nursing Triage Note: Pt amb to triage w/o difficulty. a&ox4. c/o cough, congestion, sob, chills, drainage, and rt sided chest wall discomfort for approx 1.5 wk. Reports chest wall discomfort increases in severity throughout noc and while coughing. Pt currently afebrile with tympanic temp 98.8. Intermittent cough noted. Sepsis Screen: Possible Sepsis Risk Source: patient Exam Limitations: no limitations History of Present Illness Date Seen by Provider: Aug 10, 2018 Time Seen by Provider: 20:14 Initial Comments 28-year-old female who presents to emergency room with complaints of cough congestion, nasal drainage for 1.5 weeks. She has had increasing coughing over the day and reports that her chest wall hurts with coughing. She denies shortness of breath. Timing/Duration: just prior to arrival Associated Symptoms: cough, nasal congestion, nasal drainage Allergies and Home Medications Allergies Coded Allergies: sumatriptan (Unverified Allergy, Severe, ANAPHYLAXIS, 09/20/13) Penicillins (Unverified Allergy, Unknown, 09/20/13) sumatriptan succinate (Verified Adverse Reaction, Mild, 04/01/11) Home Medications Azithromycin 250 Mg Tablet, 250 MG PO UD TAKE 2 TABLETS ON DAY ONE THEN TAKE 1 TABLET DAILY FOR FOUR MORE DAYS Prescribed by: PANCHITO ANTOINE on 08/10/182016 Clindamycin HCl 300 Mg Capsule, 300 MG PO Q6H Prescribed by: PANCHITO ANTOINE on 04/12/18 1737 Ibuprofen 600 Mg Tablet, 600 MG PO Q6H PRN for PAIN, (Reported) Ondansetron HCl 4 Mg Tab, 4 MG PO Q4H Prescribed by: YE CARBALLO on 02/04/18 0120 Prednisone 20 Mg Tab, 40 MG PO DAILY Prescribed by: PANCHITO ANTOINE on 08/10/182016 Patient Home Medication List Home Medication List Reviewed: Yes Review of Systems Review of Systems Constitutional: see HPI; No chills, No fever EENTM: see HPI, nose congestion Respiratory: see HPI, cough All Other Systems Reviewed Negative Unless Noted: Yes Past Cicbbsz-Zedqzl-Iafwlc Hx Past Med/Social Hx: Reviewed Nursing Past Med/Soc Hx Patient Social History Alcohol Use: Denies Use Recreational Drug Use: No Smoking Status: Current Everyday Smoker Type Used: Cigarettes 2nd Hand Smoke Exposure: Yes Recent Foreign Travel: No Contact w/Someone Who Travel: No Recent Infectious Disease Expo: No Recent Hopitalizations: No Immunizations Up To Date Tetanus Booster (TDap): Unknown PED Vaccines UTD: Yes Date of Influenza Vaccine: Jan 08, 2013 Seasonal Allergies Seasonal Allergies: Yes Past Medical History Surgeries: Yes (SINUS, EXPL LAP, EAR TUBES, perineal tear repair) Abdominal, Appendectomy, Ear Surgery, Eye Surgery Respiratory: No Cardiac: No Neurological: Yes Headaches /Migraines 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 Disorders: No Female 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 Disorders: Denies, Menstrual Problems, 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 Genitourinary: Yes (interstitial cystitis) Bladder Infection Gastrointestinal: Yes Gastroesophageal Reflux Musculoskeletal: No Endocrine: No HEENT: No Cancer: No Psychosocial: Yes Sleep Difficulties, Anxiety, PTSD, Depression Integumentary: No Blood Disorders: No Adverse Reaction/Blood Tranf: No Family Medical History Reviewed Nursing Family Hx FH: bipolar disorder 19 FATHER 19 MOTHER No Pertinent Family Hx Physical Exam Vital Signs - First Documented 08/10/18 19:29 Temp 98.8 Pulse 104 Resp 16 B/P (MAP) 107/75 (86) Pulse Ox 100 O2 Delivery Room Air Capillary Refill : Less Than 3 Seconds Height: 5'4.00" Weight: 105lbs. 0oz. 47.003031sq; 31.2 BMI Method:Stated General Appearance: WD/WN, no apparent distress Respiratory: chest non-tender, lungs clear, normal breath sounds, no respiratory distress, no accessory muscle use Cardiovascular: normal peripheral pulses, regular rate, rhythm, no edema, no gallop, no JVD, no murmur Extremities: normal capillary refill 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: alert, normal mood/affect, oriented x 3 Skin: normal color, warm/dry Progress/Results/Core Measures Suspected Sepsis Recent Fever Within 48 Hours: Yes Infection Criteria Present: Suspected New Infection New/Unexplained Altered Menta: No Sepsis Screen: Possible Sepsis Risk SIRS Temperature:98.8 Pulse: 104 Respiratory Rate: 16 Blood Pressure 107 /75 Mean: 86 Results/Orders My Orders Orders - PANCHITO ANTOINE Chest Pa/Lat (2 View) (08/10/18 20:26) Rx-Albuterol Inhaler (Rx-Proair) (08/10/18 20:26) Prednisone Tablet (Deltasone Tablet) (08/10/18 20:30) Azithromycin Tablet (Zithromax Tablet) (08/10/18 21:15) Medications Given in ED Vital Signs/I&O 08/10/18 08/10/18 19:29 21:08 Temp 98.8 Pulse 104 104 Resp 16 18 B/P (MAP) 107/75 (86) 107/75 (86) Pulse Ox 100 100 O2 Delivery Room Air Room Air Capillary Refill : Less Than 3 Seconds Blood Pressure Mean: 86 Diagnostic Imaging Diagonstic Imaging: Xray Plain Films/CT/US/NM/MRI: chest Comments NAME: HENRI VERDUZCO [facility] REC#: [id number] PT STATUS: REG ER : 1990 PHYSICIAN: PANCHITO ANTOINE ADMIT DATE: 08/10/18/ER Signed Date of Exam: 08/10/18 CHEST PA/LAT (2 VIEW) INDICATION: Right chest pain. COMPARISON with 03/29/2016. FINDINGS: There has been development of consolidated infiltrate in the right lung base anteriorly. The lungs are otherwise well-aerated and clear. The heart is not enlarged. No evidence of pneumothorax or pleural effusion. No bony abnormalities. IMPRESSION: Findings consistent with right lower lobe pneumonia. Dictated by: Dictated on workstation # [id number] Dict: 08/10/182051 Trans: 08/10/182101 Interpreted by: NICCI VU MD Electronically signed by: NICCI VU MD 08/10/182101 Reviewed: Reviewed by Me Departure Impression Primary Impression: Community acquired pneumonia Disposition: HOME, SELF-CARE Condition: Stable/Unchanged Departure-Patient Inst. Decision time for Depature: 20:16 Referrals: WISAM SHAH DO (PCP/Family) Primary Care Physician Patient Instructions: Pneumonia in Adults Add. Discharge Instructions: Take medications as directed. Follow-up with her primary care provider within 1 week for recheck. Return back to the emergency room for worsening symptoms or concerns as needed. All discharge instructions reviewed with patient and/or family. Voiced understanding. Scripts Prednisone (Prednisone) 20 Mg Tab 40 MG PO DAILY for 3 Days, #6 TAB 0 Refills Prov: PANCHITO ANTOINE 08/10/18 Azithromycin (Azithromycin) 250 Mg Tablet 250 MG PO UD, #6 TAB TAKE 2 TABLETS ON DAY ONE THEN TAKE 1 TABLET DAILY FOR FOUR MORE DAYS Prov: PANCHITO ANTOINE 08/10/18 PANCHITO ANTOINE Aug 10, 2018 20:20
[2018-08-10] MEDS ORDERED: RX-ALBUTEROL INHALER (PROAIR) 8 GM IH STA (20:26)
[2018-08-10] MEDS ORDERED: predniSONE 20 MG TAB PO ONE (20:30)
--- NOTE | 2018-08-10 20:55 | Diagnostic Imaging Report ---
INDICATION: Right chest pain. COMPARISON with 03/29/2016. FINDINGS: There has been development of consolidated infiltrate in the right lung base anteriorly. The lungs are otherwise well-aerated and clear. The heart is not enlarged. No evidence of pneumothorax or pleural effusion. No bony abnormalities. IMPRESSION: Findings consistent with right lower lobe pneumonia. Dictated by: Dictated on workstation # [id number]
[2018-08-10 21:08] VITALS: BP 107/75
[2018-08-10] MEDS ORDERED: AZITHROMYCIN 250 MG TAB (ZITHROMAX) PO SCH (21:15)
--- OUTSIDE RECORDS SUMMARY | 2018-08-10 23:40 | XMS REPORT ---
Author Author Migration, Doctor Organization [facility] Address Unknown Phone Unavailable Care Team Providers Care Community Relations Police Lieutenant Name Role Phone Migration, Doctor Unavailable Unavailable PROBLEMS Type Condition ICD9-CM Code IUB40-KJ Code Onset Dates Condition Status SNOMED Code Problem Other, multiple, and unspecified sites, insect bite, nonvenomous, without mention of infection 919.4 Active 524967192 Problem Dysthymic disorder 300.4 Active 89523860 Problem Depression, major, recurrent, moderate F33.1 Active 548453369 Problem Acute bronchitis 466.0 Active 99648688 Problem Acute sinusitis, unspecified 461.9 Active 83284412 Problem External hemorrhoids without mention of complication 455.3 Active 92596220 Problem Tension headache 307.81 Active [id number] ALLERGIES No Information ENCOUNTERS Encounter Location Date Diagnosis [facility] [address] [id number] Apr, Dental examination Z01.20 [facility] [address] [id number] Apr, Caries K02.9 [facility] [address] [id number] Apr, Caries K02.9 and Dental examination Z01.20 [facility] [address] [address] Oct, Depression, major, recurrent, moderate F33.1 [facility] [address] [id number] Nov, Dental examination Z01.20 [facility] [address] [address] Jun, [facility] [address] [address] Jun, [facility] [place] [facility] [address] [id number] [place] [address] 14 Apr, 2012 [facility] [place] [facility] [address] [id number] [place] [address] 15 Jan, 2012 [facility] [place] [facility] [address] [id number] [place] [address] 15 Jan, 2012 [facility] [place] [facility] [address] [id number] [place] [address] Dec, [facility] [place] [facility] [address] [id number] [place] [address] 27 Nov, 2011 [facility] [place] [facility] [address] [id number] [place] [address] Nov, [facility] [place] [facility] [address] [id number] [place] [address] Oct, [facility] [place] [facility] [address] [id number] [place] [address] Oct, [facility] [place] [facility] [address] [id number] [place] [address] Oct, [facility] [place] [facility] [address] [id number] [place] [address] Oct, [facility] [place] [facility] [address] [id number] [place] [address] Oct, [facility] [place] [facility] [address] [id number] [place] [address] Aug, [facility] [place] [facility] [address] [id number] [place] [address] Aug, [facility] [place] [facility] [address] [id number] [place] [address] July, [facility] [place] [facility] [address] [id number] [place] [address] July, [facility] [place] [facility] [address] [id number] [place] [address] July, [facility] [address] [facility] [id number] [address] July, [facility] [address] [id number] [address] Jun, [facility] [address] [id number] [address] Jun, [facility] [address] [address] Jun, [facility] [address] [facility] [id number], [place] [address] May, [facility] [address] [id number] [address] Feb, IMMUNIZATIONS No Known Immunizations SOCIAL HISTORY Never Assessed REASON FOR VISIT EMR-[facility] [place] PLAN OF CARE VITAL SIGNS MEDICATIONS Unknown Medications RESULTS No Results PROCEDURES No Known procedures INSTRUCTIONS MEDICATIONS ADMINISTERED No Known Medications MEDICAL (GENERAL) HISTORY Type Description Date Medical History asthma Medical History chronic migraines Medical History acid reflux Medical History depression Medical History anxiety Medical History interstitial cystitis Medical History endometriosis Surgical History appendix removed 21 years old Surgical History tubes in ears 4 years old Surgical History sinus surgery 14 year old Surgical History mole removal 18 years old Surgical History liproscopy May 2016
--- OUTSIDE RECORDS SUMMARY | 2018-08-10 23:40 | XMS REPORT ---
Author Author Migration, Doctor Organization [facility] Address Unknown Phone Unavailable Care Team Providers Care Mechanical Maintenance Foreman Name Role Phone Migration, Doctor Unavailable Unavailable PROBLEMS Type Condition ICD9-CM Code PRI76-JL Code Onset Dates Condition Status SNOMED Code Problem Other, multiple, and unspecified sites, insect bite, nonvenomous, without mention of infection 919.4 Active 232613253 Problem Dysthymic disorder 300.4 Active 41419970 Problem Depression, major, recurrent, moderate F33.1 Active 881636300 Problem Acute bronchitis 466.0 Active 50973937 Problem Acute sinusitis, unspecified 461.9 Active 48069128 Problem External hemorrhoids without mention of complication 455.3 Active 37223028 Problem Tension headache 307.81 Active 092907833 ALLERGIES No Information ENCOUNTERS Encounter Location Date Diagnosis [facility] [address] [id number] Apr, Dental examination Z01.20 [facility] [address] [id number] Apr, Caries K02.9 [facility] [address] [id number] Apr, Caries K02.9 and Dental examination Z01.20 [facility] [address] [address] Oct, Depression, major, recurrent, moderate F33.1 [facility] [address] [id number] Nov, Dental examination Z01.20 [facility] [address] [address] Jun, [facility] [address] [address] Jun, [facility] [place] [facility] [address] [id number] [place] [address] 14 Apr, 2012 [facility] [place] [facility] [address] [id number] [place] [address] 15 Jan, 2012 [facility] [place] [facility] [address] [id number] [place] [address] 15 Jan, 2012 [facility] [place] [facility] [address] [id number] [place] [address] Dec, [facility] [place] [facility] [address] [id number] [place] [address] 27 Nov, 2011 [facility] [place] [facility] [address] [id number] [place] [address] Nov, [facility] [place] [facility] [address] [id number] [place] [address] Oct, [facility] [place] [facility] [address] [id number] [place] [address] Oct, [facility] [place] [facility] [address] [id number] [place] [address] Oct, [facility] [place] [facility] [address] [id number] [place] [address] Oct, [facility] [place] [facility] [address] [id number] [place] [address] Oct, [facility] [place] [facility] [address] [id number] [place] [address] Aug, [facility] [place] [facility] [address] [id number] [place] [address] Aug, [facility] [place] [facility] [address] [id number] [place] [address] July, [facility] [place] [facility] [address] [id number] [place] [address] July, [facility] [place] [facility] [address] [id number] [place] [address] July, [facility] [address] [facility] [id number] [address] July, [facility] [address] [id number] [address] Jun, [facility] [address] [id number] [address] Jun, [facility] [address], [place] [address] Jun, [facility] [address] [facility] [id number], [place] [address] May, [facility] [address] [id number] [address] Feb, IMMUNIZATIONS No Known Immunizations SOCIAL HISTORY Never Assessed REASON FOR VISIT EMR-[facility] [place] PLAN OF CARE VITAL SIGNS MEDICATIONS Unknown [...]
--- OUTSIDE RECORDS SUMMARY | 2018-08-10 23:40 | XMS REPORT ---
Author Author MAY BRENNAN [facility] Address [address] [place] [address] Care Team Providers Care Kineseologist Name Role Phone MAY BRENNAN Unavailable PROBLEMS ALLERGIES ENCOUNTERS IMMUNIZATIONS No Known Immunizations SOCIAL HISTORY No smoking Hx information available REASON FOR VISIT PLAN OF CARE VITAL SIGNS MEDICATIONS RESULTS No Results PROCEDURES INSTRUCTIONS MEDICATIONS ADMINISTERED No Known Medications MEDICAL (GENERAL) HISTORY
--- OUTSIDE RECORDS SUMMARY | 2018-08-10 23:40 | XMS REPORT | Clinical Summary ---
Author Author [facility] Organization [facility] Address Unknown Phone Unavailable Care Team Providers Care Pattern Developer Name Role Phone Tami Cole MD Unavailable Unverified, Unverified Md PCP Unavailable Source Comments Some departments are not documenting in the electronic medical record. If you d o not see the information that you expected, contact Release of Information in [facility] [employer] Information Management department at [phone] for further assistan ce in locating additional records.[facility] Allergies Comments Active Allergy Reactions Severity Noted Date Numbness,weakness Gabapentin SEE COMMENTS Low 12/05/2016 Sumatriptan Succinate ANAPHYLAXIS High 05/02/2016 Penicillins HIVES 12/30/2012 Swollen throat Sumatriptan-Naproxen SWOLLEN 12/30/2012 TONGUE Medications End Date Status Medication Sig Dispensed Refills Start Date Active DULoxetine DR (CYMBALTA) Take 60 mg by 0 60 mg capsule mouth daily. Active ondansetron (ZOFRAN) 4 mg Take 4 mg by 0 tablet mouth daily as needed. Sublingual daily Active ALPRAZolam (XANAX) 0.25 Take 1 mg by 0 mg tablet mouth every 8 hours as needed. One-two tabs every 8 hrs if needed Active omeprazole(+) (PRILOSEC) Take 20 mg by 0 10 mg capsule mouth daily before breakfast. Active ACETAMINOPHEN-CAFFEINE Take by 0 POIndications: 50-325-40 mouth. mg as directed Indications: 50-325-40 mg as directed Active intrauterine copper 1 Intra 0 contraceptive (PARAGARD) Uterine 380 square mm Device by intrauterine device Intrauterine route once. Active pentosan polysulfate Take 1 270 capsule 3 sodium (ELMIRON) 100 mg capsule by 8 capsuleIndications: mouth three Interstitial cystitis times daily. Take w/ water 1 hr before or 2 hrs after meals Active bacitracin 500 unit/g Apply 0 pack topically to affected area twice daily. Active erenumab-aooe (AIMOVIG) Inject 1 mL 1 mL 6 70 mg/mL injection under the 9 syringe skin every 30 days. Active Problems Problem Noted Date Interstitial cystitis [...] from ER recently ~ request sent to [place] Continue Atarax Continue Amitriptyline Continue Levsin PRN Continue timed and double void Continue vitamin cocktail Recommend PFPT ~ list and order given Avoid dietary irritants ~ soda Trial of Elmiron ~ reviewed side effects and dosing FU 6 months Migraine without aura, intractable 12/30/2012 Chronic daily headache 12/30/2012 Obesity 12/30/2012 Anxiety and depression 12/30/2012 Tobacco use 12/30/2012 Encounters Care Team Description Date Type Specialty Michael Dunn MD 05/20/2018 Telephone Neurology Jeff Pool MD Chronic daily headache (Primary Dx); Migraine without aura, intractable 05/14/2018 Office Visit Neurology from Last 3 Months Family History Medical History Relation Name Comments Diabetes Other Hypertension Other Stroke Other Urologic Problems Other Stroke Paternal Grandfather Stroke Paternal Grandmother Relation Name Status Comments Other Paternal Grandfather Paternal Grandmother Social History Date Tobacco Use Types Packs/Day Years Used Current Every Day Smoker Cigarettes 0.25 4 Smokeless Tobacco: Never Used Tobacco Cessation: Ready to Quit: No Alcohol Use Drinks/Week oz/Week Comments No Sex Assigned at Date Recorded Not on file Industry Job Start Date Occupation Not on file Not on file Not on file Travel End Travel History Travel Start No recent travel history available. Last Filed Vital Signs Time Taken Vital Sign Reading 05/14/2018 8:54 AM SCHOOL ATTENDANCE SECRETARY Blood Pressure 113/73 05/14/2018 8:54 AM SCHOOL ATTENDANCE SECRETARY Pulse 78 05/21/2016 3:00 PM CDT Temperature 36.9 C (98.4 F) 07/10/2017 10:28 AM CDT Respiratory Rate 16 05/21/2016 3:00 PM CDT Oxygen Saturation 100% - Inhaled Oxygen - Concentration 05/14/2018 8:54 AM SCHOOL ATTENDANCE SECRETARY Weight 48.1 kg (106 lb 1.9 oz) 05/14/2018 8:54 AM SCHOOL ATTENDANCE SECRETARY Height 162.6 cm (5' 4") 05/14/2018 8:54 AM SCHOOL ATTENDANCE SECRETARY Body Mass Index 18.22 Plan of Treatment Health Maintenance Due Date Last Done Comments PHYSICAL (COMPREHENSIVE) 06/19/1999 EXAM HIV SCREENING 06/19/2007 HPV VACCINES (1 - Female 06/19/2007 3-dose series) DTAP/TDAP VACCINES (1 - 2010 Tdap) CERVICAL CANCER SCREENING 2013 INFLUENZA VACCINE 12/08/2018 01/20/2008, 01/11/2005, 12/29/2003 Results Not on filefrom Last 3 Months Insurance Type Payer Benefit Subscriber ID Effective Phone Address Plan / Dates Group Medicare MEDICARE MEDICARE xxxxxxxxxxx 2012-P PART A AND resent B Medicaid [employer] [place] [employer] xxxxxxxxxxx 2010- STATE Present HEALTH Advance Directives Patient has advance care planning documents on file. For more information, abhishek vasquez contact: [facility] [address] [facility] [place] [address]
--- OUTSIDE RECORDS SUMMARY | 2018-08-10 23:40 | XMS REPORT | Encounter Summary ---
Author Author [facility] Organization [facility] Address Unknown Phone Unavailable Care Team Providers Care Presentation Specialist Name Role Phone Tami Cole MD Unavailable Unverified, Unverified PCP Unavailable Reason for Visit * Reason Comments Follow Up Encounter Details Care Team Description Date Type Department Jeff Pool MD [address] [place] [address] Chronic daily headache (Primary Dx); Migraine without aura, intractable 05/14/2018 Office Visit [facility] [address] [place] [address] Social History Date Tobacco Use Types Packs/Day Years Used Current Every Day Smoker Cigarettes 0.25 4 Smokeless Tobacco: Never Used Alcohol Use Drinks/Week oz/Week Comments No Sex Assigned at Date Recorded Not on file Industry Job Start Date Occupation Not on file Not on file Not on file Travel End Travel History Travel Start No recent travel history available. documented as of this encounter Last Filed Vital Signs Time Taken Vital Sign Reading 05/14/2018 8:54 AM ENVIRONMENTAL ADVISER Blood Pressure 113/73 05/14/2018 8:54 AM ENVIRONMENTAL ADVISER Pulse 78 - Temperature - - Respiratory Rate - - Oxygen Saturation - - Inhaled Oxygen - Concentration 05/14/2018 8:54 AM ENVIRONMENTAL ADVISER Weight 48.1 kg (106 lb 1.9 oz) 05/14/2018 8:54 AM ENVIRONMENTAL ADVISER Height 162.6 cm (5' 4") 05/14/2018 8:54 AM ENVIRONMENTAL ADVISER Body Mass Index 18.22 documented in this encounter Patient Instructions * Patient Instructions* Jeff Pool MD - 05/14/2018 9:45 AM ENVIRONMENTAL ADVISER - Seizure precautions: Do not drive, climb on ladders, swim alone, bathe with do or locked, use heavy machinery, use firearms or do anything else where it would be dangerous to have a seizure for six months from your last seizure. RONMENTAL ADVISER documented in this encounter Progress Notes * Michael Dunn MD - 05/14/2018 9:45 AM ENVIRONMENTAL ADVISER I have personally interviewed and examined Meli Barros and reviewed the history, examination, impression, and plan of care as outlined by Dr.Benjamin Amanda minor MD. I personally participated in patient counseling and coordination of c are. I agree with the assessment and plan as documented by Dr. Jeff Pool MD. RONMENTAL ADVISER * Jeff Pool MD - 05/14/2018 9:45 AM ENVIRONMENTAL ADVISER Date of Service: 05/14/2018 Subjective: Meli Barros is a 27 y.o. female. She was concerned she had a seizure an d saw Dr. Atwood in [place] who did an EEG which was normal and told her it was stress probably. She was talking to her mom when she thinks she fell to the [facility] and her mom called the ambulance. She remembers the ambulance arriving but then didn't remember anything for a while. She apparently had 2 events. She sandhu s no memory of the events. She was told her eyes rolled back and her mouth foam ed. She was told her body was moving everywhere. She had been awake for 3 days and not eating because of stress before that. She reports she had a normal head CT at the emergency room. She says she only takes 1 0.25 mg tab of xanax once a day. She denies any history of seizures prior to this occurrence and any epi sodes since. She stopped taking esgic a week ago. She started taking 2 excedrin every day in stead. She takes cymbalta 60mg qd. She had been on aimovig but couldn't get it this month due to a prior authorizat ion issue. She feels she was having migraines every day before starting aimovig but reduced to 24 days a month of migraines and says it is still about the same. She is on disability for migraines. History of Present Illness Review of Systems HENT: Positive for dental problem. Gastrointestinal: Positive for abdominal pain, nausea and vomiting. Genitourinary: Positive for dysuria and frequency. Neurological: Positive for light-headedness. All other systems reviewed and are negative. Objective: ACETAMINOPHEN-CAFFEINE PO Take by mouth. Indications: 50-325-40 mg as direc malia ALPRAZolam (XANAX) 0.25 mg tablet Take 1 mg by mouth every 8 hours as needed . One-two tabs every 8 hrs if needed bacitracin 500 unit/g pack Apply topically to affected area twice daily. DULoxetine DR (CYMBALTA) 60 mg capsule Take 60 mg by mouth daily. erenumab-aooe (AIMOVIG) 70 mg/mL injection syringe Inject 1 mL under the ski n every 30 days. intrauterine copper contraceptive (PARAGARD) 380 square mm intrauterine henri ce 1 Intra Uterine Device by Intrauterine route once. omeprazole(+) (PRILOSEC) 10 mg capsule Take 20 mg by mouth daily before anita kfast. ondansetron (ZOFRAN) 4 mg tablet Take 4 mg by mouth daily as needed. Subling ual daily pentosan polysulfate sodium (ELMIRON) 100 mg capsule Take 1 capsule by mouth three times daily. Take w/ water 1 hr before or 2 hrs after meals Vitals: 05/14/18 0854 BP: 113/73 Pulse: 78 Weight: 48.1 kg (106 lb 1.9 oz) Height: 162.6 cm (64") Body mass index is 18.22 kg/m. Physical Exam Neurologic Exam: Mental Status: alert, oriented, following simple commands Speech: fluent, no dysarthria CN II-XII: pupils equal and reactive, EOMI w/o nystagmus, no facial droop, facia l sensation intact to light touch, symmetric palatal elevation, tongue midline Motor: normal tone and bulk, strength 5/5 and symmetric in all extremities Sensory: intact to light touch bilaterally Reflexes: 2/4 and symmetric, toes downgoing bilaterally Gait: Narrow base, stable Assessment and Plan: 27 yof followed for refractory migraines which she reports were improved on aimo vig but she is unable to get this refilled. Will clarify the issue as it is doc umented in the chart to be approved through February 2019. I discussed that I w ould not want her to restart esgic as it is habit forming and I believe this med ication overuse could be contributing to her headaches. I also counseled her on trying to reduce PRN medications to less than half the days of the week. I suspect her reported seizure was likely provoked in the setting of 3 days of n o sleep and she reports seeing an outside neurologist and having a negative EEG and head CT. If she does not have further events I do not believe we need furth er work-up or AED therapy but I advised her that these could be necessary if she had a recurrence. Seizure precautions: Do not drive, climb on ladders, swim alone, bathe with door locked, use heavy machinery, use firearms or do anything else where it would be dangerous to have a seizure for six months from your last seizure. RTC 6 months Patient seen and discussed with Dr. Mona Pool MD PGY4 Neurology RONMENTAL ADVISER documented in this encounter Plan of Treatment Not on filedocumented as of this encounter Visit Diagnoses Diagnosis Chronic daily headache - Primary Headache Migraine without aura, intractable Migraine without aura, with intractable migraine, so stated, without mention of status migrainosus documented in this encounter
--- OUTSIDE RECORDS SUMMARY | 2018-08-10 23:40 | XMS REPORT | Encounter Summary ---
Author Author [facility] Organization [facility] Address Unknown Phone Unavailable Care Team Providers Care Manufacturing Job Titles Name Role Phone Tami Cole MD Unavailable Unverified, Unverified PCP Unavailable Encounter Details Care Team Description Date Type Department Micheal Dunn MD [address] [place] [address] 05/20/2018 Telephone [facility] [address] [place] [address] Social History Date Tobacco Use [...] history available. documented as of this encounter Miscellaneous Notes * Telephone Encounter - Bria Ellington - 05/20/2018 12:18 PM CDT Received notice of approval from [employer] Plan for Aimovig auto injector Refe rral # [id number] period of coverage 03/08/18- patient and pharmacy notif ied of approval. documented in this encounter Plan of Treatment Not on filedocumented as of this encounter Visit Diagnoses Not on filedocumented in this encounter
--- OUTSIDE RECORDS SUMMARY | 2018-08-10 23:54 | XMS REPORT | Continuity of Care Document ---
Author Organization Unknown Address Unknown Allergies Active Description Code Type Severity Reaction Onset Reported/Identified Relationship to Patient Clinical Status Yes naproxen sodium [id number] Drug Allergy Mild N/A 04/01/2011 Yes sumatriptan succinate [id number] Drug Allergy Mild N/A 04/01/2011 Yes Penicillins Drug Allergy 07/02/2011 Yes Treximet Drug Allergy 07/02/2011 Yes sumatriptan [id number] Drug Allergy Severe ANAPHYLAXIS 09/20/2013 Yes Penicillins [id number] Drug Allergy Unknown N/A 09/20/2013 Medications There [...] 455.3 EXTERNAL HEMORRHOIDS WITHOUT COMPLICATION 09/03/2011 URIEL BENIETZ APRN 461.9 ACUTE SINUSITIS UNSPECIFIED 10/14/2011 307.81 [...] O60.03 LABOR WITHOUT DELIVERY, THIRD TR 07/27/2015 ZEINAB YUN, LUIS A N Ot Z3A.36 36 WEEKS GESTATION OF 08/04/2015 GONZALEZ DO TALA C Ot O47.1 FALSE LABOR AT OR AFTER 37 COMPLETED WEE 08/04/2015 GONZALEZ DO TALA C Ot Z3A.37 37 WEEKS GESTATION OF 08/10/2015 LISA QUINTANA TALA C Ot D62 ACUTE POSTHEMORRHAGIC ANEMIA 08/10/2015 TALA GONZALEZ DO C Ot O70.2 THIRD DEGREE PERINEAL LACERATION DURING 08/10/2015 PIA GONZALEZ DOA C Ot O76 ABNLT IN HEART RATE AND RHYTHM COM 08/10/2015 PIA GONZALEZ DOA C Ot O90.81 ANEMIA OF THE PUERPERIUM 08/10/2015 PIA GONZALEZ DOA C Ot Z23 ENCOUNTER FOR IMMUNIZATION 08/10/2015 PIA GONZALEZ DOA C Ot Z37.0 SINGLE LIVE 08/10/2015 TALA GONZALEZ DO C Ot Z3A.39 39 WEEKS GESTATION OF 08/12/2015 SIMON RAMIREZ MD Ot F17.210 NICOTINE DEPENDENCE, CIGARETTES, UNCOMPL 08/12/2015 SIMON RAMIREZ MD Ot N39.0 URINARY TRACT INFECTION, SITE NOT [...] Roy Ot R30.0 DYSURIA 12/30/2015 BRYCE, [employer] FIELD SUPERVISOR Ot F17.210 NICOTINE DEPENDENCE, CIGARETTES, UNCOMPL 12/30/2015 BRYCE, [employer] FIELD SUPERVISOR Ot G43.909 MIGRAINE, UNSP, NOT INTRACTABLE, WITHOUT 12/30/2015 BRYCE, [employer] FIELD SUPERVISOR Ot R51 HEADACHE 12/30/2015 BRYCE, [employer] FIELD SUPERVISOR Ot Z79.899 OTHER INFORMAL WAITER/WAITRESS (CURRENT) DRUG THERAPY 01/01/2016 BRYCE, [employer] FIELD SUPERVISOR Ot F17.210 NICOTINE DEPENDENCE, CIGARETTES, UNCOMPL 01/01/2016 BRYCE, [employer] FIELD SUPERVISOR Ot G43.909 MIGRAINE, UNSP, NOT INTRACTABLE, WITHOUT 01/01/2016 BRYCE, [employer] FIELD SUPERVISOR Ot R51 HEADACHE 01/01/2016 BRYCE, [employer] FIELD SUPERVISOR Ot Z79.899 OTHER USP (CURRENT) DRUG THERAPY 02/29/2016 JUAN MIGUEL JIMENEZ WEATHERCASTER Ot R51 HEADACHE 03/01/2016 JUAN MIGUEL JIMENEZ WEATHERCASTER Ot R51 HEADACHE 03/15/2016 JUAN MIGUEL JIMENEZ WEATHERCASTER Ot G43.909 MIGRAINE, UNSP, NOT INTRACTABLE, WITHOUT 03/15/2016 JUAN MIGUEL JIMENEZ WEATHERCASTER Ot R51 HEADACHE 03/17/2016 TENZIN YUN, FADI Bennett Ot F17.210 NICOTINE DEPENDENCE, CIGARETTES, UNCOMPL 03/17/2016 TENZIN YUN, FADI Bennett Ot G43.909 MIGRAINE, UNSP, NOT INTRACTABLE, WITHOUT 03/18/2016 JUAN MIGUEL JIMENEZ APRN Ot G43.909 MIGRAINE, UNSP, NOT INTRACTABLE, WITHOUT 03/18/2016 JUAN MIGUEL JIMENEZ WEATHERCASTER Ot R51 HEADACHE 03/18/2016 TENZIN YUN, FADI Bennett Ot F17.210 NICOTINE DEPENDENCE, CIGARETTES, UNCOMPL 03/18/2016 TENZIN YUN, FADI Bennett Ot G43.909 MIGRAINE, UNSP, NOT INTRACTABLE, WITHOUT 03/20/2016 SauravYesica amador Lucio 668.81 OTHER COMPLICATIONS OF ANESTHESIA OR OTHER [...] NOT INTRACTABLE, WITHOUT 03/29/2016 CHRISTOPHE KENT MD Ot F17.210 NICOTINE DEPENDENCE, CIGARETTES, UNCOMPL 03/29/2016 CHRISTOPHE KENT MD T Ot R07.81 PLEURODYNIA 03/29/2016 CHRISTOPHE KENT MD T Ot R07.89 OTHER CHEST PAIN 03/29/2016 CHRISTOPHE KENT MD T Ot Z79.899 OTHER INFORMAL WAITER/WAITRESS (CURRENT) DRUG THERAPY 04/01/2016 CHRISTOPHE KENT MD T Ot F17.210 NICOTINE DEPENDENCE, CIGARETTES, UNCOMPL 04/01/2016 CHRISTOPHE KENT MD T Ot R07.81 PLEURODYNIA 04/01/2016 CHRISTOPHE KENT MD T Ot R07.89 OTHER CHEST PAIN 04/01/2016 CHRISTOPHE KENT MD T Ot Z79.899 OTHER INFORMAL WAITER/WAITRESS (CURRENT) DRUG THERAPY 04/04/2016 WILFREDO YUN, JOCELYNE [...] DONTE YUN, CHRISTOPHE Madsen Ot Z79.899 OTHER INFORMAL WAITER/WAITRESS (CURRENT) DRUG THERAPY 04/24/2016 WILFREDO YUN, JOCELYNE [...] ASHLEY YUN, SIMON Valdes Ot Z79.899 OTHER USP (CURRENT) DRUG THERAPY 05/31/2016 SIMON RAMIREZ MD Ot G43.909 MIGRAINE, UNSP, NOT INTRACTABLE, WITHOUT 05/31/2016 ASHLEY YUN, SIMON Valdes Ot R51 HEADACHE 05/31/2016 SIMON RAMIREZ MD A Ot Z79.899 OTHER INFORMAL WAITER/WAITRESS (CURRENT) DRUG THERAPY 06/22/2016 JUAN MIGUEL JIMENEZ APRN Ot G43.909 MIGRAINE, UNSP, NOT INTRACTABLE, WITHOUT 06/22/2016 JUAN MIGUEL JIMENEZ APRN Ot Z79.899 OTHER USP (CURRENT) DRUG THERAPY 07/01/2016 BILLY MIRELES MD Ot G43.909 MIGRAINE, UNSP, NOT INTRACTABLE, WITHOUT 07/01/2016 BILLY MIRELES MD Ot Z79.899 OTHER USP (CURRENT) DRUG THERAPY 07/02/2016 BILLY MIRELES MD Ot G43.909 MIGRAINE, UNSP, NOT INTRACTABLE, WITHOUT 07/02/2016 BILLY MIRELES MD Ot Z79.899 OTHER USP (CURRENT) DRUG THERAPY 07/03/2016 BILLY MIRELES MD Ot G43.909 MIGRAINE, UNSP, NOT INTRACTABLE, WITHOUT 07/03/2016 BILLY MIRELES MD Ot Z79.899 OTHER INFORMAL WAITER/WAITRESS (CURRENT) DRUG THERAPY 07/06/2016 JENNIFER ROSAS Ot F17.210 NICOTINE DEPENDENCE, CIGARETTES, UNCOMPL 07/06/2016 JENNIFER ROSAS Ot G43.909 MIGRAINE, UNSP, NOT INTRACTABLE, WITHOUT 07/06/2016 JENNIFER ROSAS Ot Z79.899 OTHER USP (CURRENT) DRUG THERAPY 07/07/2016 JENNIFER ROSAS Ot F17.210 NICOTINE DEPENDENCE, CIGARETTES, UNCOMPL 07/07/2016 JENNIFER ROSAS Ot G43.909 MIGRAINE, UNSP, NOT INTRACTABLE, WITHOUT 07/07/2016 JENNIFER ROSAS Ot Z79.899 OTHER USP (CURRENT) DRUG THERAPY 09/27/2016 FADI DAVE MD [...] ABSENCE OF OTHER SPECIFIED PART 11/11/2016 KAIT DO YE K Ot F17.210 NICOTINE DEPENDENCE, CIGARETTES, UNCOMPL 11/11/2016 JAMES CARBALLO DOA Shahid Ot F32.9 MAJOR DEPRESSIVE DISORDER, SINGLE EPISOD 11/11/2016 YE CARBALLO DO Ot F41.9 ANXIETY DISORDER, UNSPECIFIED 11/11/2016 YE CARBALLO DO Ot F43.10 POST-TRAUMATIC STRESS DISORDER, UNSPECIF 11/11/2016 KAIT DO YE K Ot G43.909 MIGRAINE, UNSP, NOT INTRACTABLE, WITHOUT 11/11/2016 JAMES CARBALLO DOA K Ot K21.9 GASTRO-ESOPHAGEAL REFLUX DISEASE WITHOUT 11/11/2016 JAMES CARBALLO DOA K Ot N39.0 URINARY TRACT INFECTION, SITE NOT SPECIF 11/11/2016 YE CARBALLO DO Ot R30.0 DYSURIA 11/11/2016 YE CARBALLO DO Ot Z87.448 PERSONAL HISTORY OF OTHER DISEASES OF UR 11/11/2016 YE CARBALLO DO Ot Z90.49 ACQUIRED ABSENCE OF OTHER SPECIFIED PART 11/13/2016 KAIT DO, YE K Ot F17.210 NICOTINE DEPENDENCE, CIGARETTES, UNCOMPL 11/13/2016 KAIT , YE K Ot F32.9 MAJOR DEPRESSIVE DISORDER, SINGLE EPISOD 11/13/2016 KAIT , YE K Ot F41.9 ANXIETY DISORDER, UNSPECIFIED 11/13/2016 KAIT , YE K Ot F43.10 POST-TRAUMATIC STRESS DISORDER, UNSPECIF 11/13/2016 KAIT , YE K Ot G43.909 MIGRAINE, UNSP, NOT INTRACTABLE, WITHOUT 11/13/2016 KAIT DO, YE K Ot K21.9 GASTRO-ESOPHAGEAL REFLUX DISEASE WITHOUT 11/13/2016 KAIT DOJAMESA K Ot N39.0 URINARY TRACT INFECTION, SITE NOT SPECIF 11/13/2016 KAIT YE QUINTANA K Ot R30.0 DYSURIA 11/13/2016 KAIT JAMES QUINTANAA K Ot Z87.448 PERSONAL HISTORY OF OTHER DISEASES OF UR 11/13/2016 KAIT QUINTANA YE K Ot Z90.49 ACQUIRED ABSENCE OF OTHER SPECIFIED PART 01/09/2017 JOCELYNE VILLALOBOS MD Ot G43.019 MIGRAINE W/O [...] POST-TRAUMATIC STRESS DISORDER, UNSPECIF 04/17/2017 CHRISTOPHE KENT MD, Ot G43.909 MIGRAINE, UNSP, NOT INTRACTABLE, WITHOUT 04/17/2017 CHRISTOPHE KENT MD, Ot K21.9 GASTRO-ESOPHAGEAL REFLUX DISEASE WITHOUT 04/17/2017 CHRISTOPHE KENT MD Ot N92.0 EXCESSIVE AND FREQUENT MENSTRUATION WITH 04/17/2017 CHRISTOPHE KENT MD Ot N93.9 ABNORMAL UTERINE AND VAGINAL BLEEDING, U 04/17/2017 CHRISTOPHE KENT MD, Ot N94.6 DYSMENORRHEA, UNSPECIFIED 04/17/2017 CHRISTOPHE KENT MD Ot Z87.448 PERSONAL HISTORY OF OTHER DISEASES OF UR 04/17/2017 CHRISTOPHE KENT MD, Ot Z88.0 ALLERGY STATUS TO PENICILLIN 04/17/2017 CHRISTOPHE KENT MD Ot Z88.8 ALLERGY STATUS TO OTH DRUG/MEDS/BIOL [...] APRN Ot Z97.5 PRESENCE OF (INTRAUTERINE) CONTRACEPTIVE 07/11/2017 WILFREDO YUN, JOCELYNE Key Ot G43.019 MIGRAINE W/O AURA, INTRACTABLE, WITHOUT 07/11/2017 JUAN MIGUEL JIMENEZ APRN Ot F32.9 MAJOR DEPRESSIVE DISORDER, SINGLE EPISOD 07/11/2017 JUAN MIGUEL JIMENEZ APRN Ot F41.9 ANXIETY DISORDER, UNSPECIFIED 07/11/2017 JUAN MIGUEL JIMENEZ APRN Ot F43.10 POST-TRAUMATIC STRESS DISORDER, UNSPECIF 07/11/2017 JUAN MIGUEL JIMENEZ APRN Ot G43.909 MIGRAINE, UNSP, NOT INTRACTABLE, WITHOUT 07/11/2017 JUAN MIGUEL JIMENEZ APRN Ot G47.9 SLEEP DISORDER, UNSPECIFIED 07/11/2017 JUAN MIGUEL JIMENEZ APRN Ot K21.9 GASTRO-ESOPHAGEAL REFLUX DISEASE WITHOUT 07/11/2017 JUAN MIGUEL JIMENEZ APRN Ot Z87.440 PERSONAL HISTORY OF URINARY (TRACT) INFE 07/11/2017 JUAN MIGUEL JIMENEZ APRN Ot Z87.59 PERSONAL HISTORY OF COMP OF PREG, CHLDBR 07/11/2017 JUAN MIGUEL JIMENEZ APRN Ot Z88.0 ALLERGY STATUS TO PENICILLIN 07/11/2017 JUAN MIGUEL JIMENEZ APRN Ot Z88.8 ALLERGY STATUS TO OTH DRUG/MEDS/BIOL SUB 07/11/2017 JUAN MIGUEL JIMENEZ APRN Ot Z90.49 ACQUIRED ABSENCE OF OTHER SPECIFIED PART 07/11/2017 JUAN MIGUEL JIMENEZ APRN Ot Z96.22 MYRINGOTOMY TUBE(S) STATUS 07/11/2017 JUAN MIGUEL JIMENEZ APRN Ot Z97.5 PRESENCE OF (INTRAUTERINE) CONTRACEPTIVE 07/14/2017 JUAN MIGUEL JIMENEZ APRN Ot F32.9 MAJOR DEPRESSIVE DISORDER, SINGLE EPISOD 07/14/2017 JUAN MIGUEL JIMENEZ APRN Ot F41.9 ANXIETY DISORDER, UNSPECIFIED 07/14/2017 JUAN MIGUEL JIMENEZ APRN Ot F43.10 POST-TRAUMATIC STRESS DISORDER, UNSPECIF 07/14/2017 JUAN MIGUEL JIMENEZ APRN Ot G43.909 MIGRAINE, UNSP, NOT INTRACTABLE, WITHOUT 07/14/2017 JUAN MIGUEL JIMENEZ APRN Ot G47.9 SLEEP DISORDER, UNSPECIFIED 07/14/2017 JUAN MIGUEL JIMENEZ APRN Ot K21.9 GASTRO-ESOPHAGEAL REFLUX DISEASE WITHOUT 07/14/2017 JUAN MIGUEL JIMENEZ APRN Ot Z87.440 PERSONAL HISTORY OF URINARY (TRACT) INFE 07/14/2017 JUAN MIGUEL JIMENEZ APRN Ot Z87.59 PERSONAL HISTORY OF COMP OF PREG, CHLDBR 07/14/2017 JUAN MIGUEL JIMENEZ APRN Ot Z88.0 ALLERGY STATUS TO PENICILLIN 07/14/2017 JUAN MIGUEL JIMENEZ APRN Ot Z88.8 ALLERGY STATUS TO OTH DRUG/MEDS/BIOL SUB 07/14/2017 JUAN MIGUEL JIMENEZ APRN Ot Z90.49 ACQUIRED ABSENCE OF OTHER SPECIFIED PART 07/14/2017 JUAN MIGUEL JIMENEZ APRN Ot Z96.22 MYRINGOTOMY TUBE(S) STATUS 07/14/2017 JUAN MIGUEL JIMENEZ APRN Ot Z97.5 PRESENCE OF (INTRAUTERINE) CONTRACEPTIVE 08/31/2017 WILFREDO YUN, JOCELYNE Key Ot G43.019 MIGRAINE W/O AURA, INTRACTABLE, WITHOUT 08/31/2017 JUAN MIGUEL JIMENEZ APRN Ot F32.9 MAJOR DEPRESSIVE DISORDER, SINGLE EPISOD 08/31/2017 JUAN MIGUEL JIMENEZ APRN Ot F41.9 ANXIETY DISORDER, UNSPECIFIED 08/31/2017 JUAN MIGUEL JIMENEZ APRN Ot G43.909 MIGRAINE, UNSP, NOT INTRACTABLE, WITHOUT 08/31/2017 JUAN MIGUEL JIMENEZ APRN Ot R10.11 RIGHT UPPER QUADRANT PAIN 08/31/2017 JUAN MIGUEL JIMENEZ APRN Ot R10.13 EPIGASTRIC PAIN 08/31/2017 JUAN MIGUEL JIMENEZ APRN Ot Z77.22 CNTCT W AND EXPSR TO ENVIRON TOBACCO SMO 08/31/2017 JUAN MIGUEL JIMENEZ APRN Ot Z88.0 ALLERGY STATUS TO PENICILLIN 08/31/2017 JUAN MIGUEL JIMENEZ APRN Ot Z88.1 ALLERGY STATUS TO OTHER ANTIBIOTIC AGENT 08/31/2017 JUAN MIGUEL JIMENEZ APRN Ot Z90.49 ACQUIRED ABSENCE OF OTHER SPECIFIED PART 08/31/2017 JUAN MIGUEL JIMENEZ APRN Ot Z97.5 PRESENCE OF (INTRAUTERINE) CONTRACEPTIVE 09/01/2017 JUAN MIGUEL JIMENEZ APRN Ot F32.9 MAJOR DEPRESSIVE DISORDER, SINGLE EPISOD 09/01/2017 JUAN MIGUEL JIMENEZ APRN Ot F41.9 ANXIETY DISORDER, UNSPECIFIED 09/01/2017 JUAN MIGUEL JIMENEZ APRN Ot G43.909 MIGRAINE, UNSP, NOT INTRACTABLE, WITHOUT 09/01/2017 JUAN MIGUEL JIMENEZ APRN Ot R10.11 RIGHT UPPER QUADRANT PAIN 09/01/2017 JUAN MIGUEL JIMENEZ APRN Ot R10.13 EPIGASTRIC PAIN 09/01/2017 JUAN MIGUEL JIMENEZ WEATHERCASTER Ot Z77.22 CNTCT W AND EXPSR TO ENVIRON TOBACCO SMO 09/01/2017 JUAN MIGUEL JIMENEZ WEATHERCASTER Ot Z88.0 ALLERGY STATUS TO PENICILLIN 09/01/2017 JUAN MIGUEL JIMENEZ WEATHERCASTER Ot Z88.1 ALLERGY STATUS TO OTHER ANTIBIOTIC AGENT 09/01/2017 JUAN MIGUEL JIMENEZ WEATHERCASTER Ot Z90.49 ACQUIRED ABSENCE OF OTHER SPECIFIED PART 09/01/2017 JUAN MIGUEL JIMENEZ WEATHERCASTER Ot Z97.5 PRESENCE OF (INTRAUTERINE) CONTRACEPTIVE 09/01/2017 JUAN MIGUEL JIMENEZ APRN Ot F32.9 MAJOR DEPRESSIVE DISORDER, SINGLE EPISOD 09/01/2017 JUAN MIGUEL JIMENEZ APRN Ot F41.9 ANXIETY DISORDER, UNSPECIFIED 09/01/2017 JUAN MIGUEL JIMENEZ APRN Ot G43.909 MIGRAINE, UNSP, NOT INTRACTABLE, WITHOUT 09/01/2017 JUAN MIGUEL JIMENEZ WEATHERCASTER Ot R10.11 RIGHT UPPER QUADRANT PAIN 09/01/2017 JUAN MIGUEL JIMENEZ WEATHERCASTER Ot R10.13 EPIGASTRIC PAIN 09/01/2017 JUAN MIGUEL JIMENEZ WEATHERCASTER Ot Z77.22 CNTCT W AND EXPSR TO ENVIRON TOBACCO SMO 09/01/2017 JUAN MIGUEL JIMENEZ WEATHERCASTER Ot Z88.0 ALLERGY STATUS TO PENICILLIN 09/01/2017 JUAN MIGUEL JIMENEZ WEATHERCASTER Ot Z88.1 ALLERGY STATUS TO OTHER ANTIBIOTIC AGENT 09/01/2017 JUAN MIGUEL JIMENEZ WEATHERCASTER Ot Z90.49 ACQUIRED ABSENCE OF OTHER SPECIFIED PART 09/01/2017 JUAN MIGUEL JIMENEZ WEATHERCASTER Ot Z97.5 PRESENCE OF (INTRAUTERINE) CONTRACEPTIVE 10/26/2017 PANCHITO ANTOINE Ot F32.9 MAJOR DEPRESSIVE DISORDER, SINGLE EPISOD 10/26/2017 PANCHITO ANTOINE Ot F41.9 ANXIETY DISORDER, UNSPECIFIED 10/26/2017 PANCHITO ANTOINE Ot F43.10 POST-TRAUMATIC STRESS DISORDER, UNSPECIF 10/26/2017 PANCHITO ANTOINE Ot G43.909 MIGRAINE, UNSP, NOT INTRACTABLE, WITHOUT 10/26/2017 PANCHITO ANTOINE Ot K21.9 GASTRO- ESOPHAGEAL REFLUX DISEASE WITHOUT 10/26/2017 PANCHITO ANTOINE Ot S40.862A INSECT BITE (NONVENOMOUS) OF LEFT UPPER 10/26/2017 PANHCITO ANTOINE Ot W57.XXXA BIT/STUNG BY NONVENOM INSECT OTH NONVE 10/26/2017 MASON ANTOINEIS Ot Z77.22 CNTCT W AND EXPSR TO ENVIRON TOBACCO SMO 10/26/2017 MASON ANTOINEIS Ot Z88.0 ALLERGY STATUS TO PENICILLIN 10/26/2017 MASON ANTOINEIS Ot Z88.2 ALLERGY STATUS TO SULFONAMIDES STATUS 10/26/2017 MASON ANTOINEIS Ot Z90.49 ACQUIRED ABSENCE OF OTHER SPECIFIED PART 10/28/2017 ELINA PANCHITO Ot F32.9 MAJOR DEPRESSIVE DISORDER, SINGLE EPISOD 10/28/2017 ELINA PANCHITO Ot F41.9 ANXIETY DISORDER, UNSPECIFIED 10/28/2017 TYLERKELLI PANCHITO Ot F43.10 POST-TRAUMATIC STRESS DISORDER, UNSPECIF 10/28/2017 TYLERKELLI PANCHITO Ot G43.909 MIGRAINE, UNSP, NOT INTRACTABLE, WITHOUT 10/28/2017 ELINA PANCHITO Ot K21.9 GASTRO- ESOPHAGEAL REFLUX DISEASE WITHOUT 10/28/2017 ELINA PANCHITO Ot S40.862A INSECT BITE (NONVENOMOUS) OF LEFT UPPER 10/28/2017 MASON ANTOINEIS Ot W57.XXXA BIT/STUNG BY NONVENOM INSECT OTH NONVE 10/28/2017 MASON ANTOINEIS Ot Z77.22 CNTCT W AND EXPSR TO ENVIRON TOBACCO SMO 10/28/2017 MASON ANTOINEIS Ot Z88.0 ALLERGY STATUS TO PENICILLIN 10/28/2017 MASON ANTOINEIS Ot Z88.2 ALLERGY STATUS TO SULFONAMIDES STATUS 10/28/2017 ELINA PANCHITO Ot Z90.49 ACQUIRED ABSENCE OF OTHER SPECIFIED PART 10/31/2017 ALINE YUN, BILLY Roy Ot A64 UNSPECIFIED SEXUALLY TRANSMITTED DISEASE 10/31/2017 BILLY MIRELES MD Ot F17.210 NICOTINE DEPENDENCE, CIGARETTES, UNCOMPL 10/31/2017 BILLY MIRELES MD Ot F32.9 MAJOR DEPRESSIVE DISORDER, SINGLE EPISOD 10/31/2017 BILLY MIRELES MD Ot F41.9 ANXIETY DISORDER, UNSPECIFIED 10/31/2017 BILLY MIRELES MD Ot F43.10 POST-TRAUMATIC STRESS DISORDER, UNSPECIF 10/31/2017 BILLY MIRELES MD Ot G43.909 MIGRAINE, UNSP, NOT INTRACTABLE, WITHOUT 10/31/2017 BILLY MIRELES MD Ot K21.9 GASTRO-ESOPHAGEAL REFLUX DISEASE WITHOUT 10/31/2017 BILLY MIRELES MD Ot R10.31 RIGHT LOWER QUADRANT PAIN 10/31/2017 BILLY MIRELES MD Ot Z88.0 ALLERGY STATUS TO PENICILLIN 10/31/2017 BILLY MIRELES MD Ot Z88.2 ALLERGY STATUS TO SULFONAMIDES STATUS 10/31/2017 BILLY MIRELES MD Ot Z90.49 ACQUIRED ABSENCE OF OTHER SPECIFIED PART 11/03/2017 BILLY MIRELES MD Ot A64 UNSPECIFIED SEXUALLY TRANSMITTED DISEASE 11/03/2017 BILLY MIRELES MD Ot F17.210 NICOTINE DEPENDENCE, CIGARETTES, UNCOMPL 11/03/2017 BILLY MIRELES MD Ot F32.9 MAJOR DEPRESSIVE DISORDER, SINGLE EPISOD 11/03/2017 BILLY MIRELES MD Ot F41.9 ANXIETY DISORDER, UNSPECIFIED 11/03/2017 BILLY MIRELES MD Ot F43.10 POST-TRAUMATIC STRESS DISORDER, UNSPECIF 11/03/2017 BILLY MIRELES MD Ot G43.909 MIGRAINE, UNSP, NOT INTRACTABLE, WITHOUT 11/03/2017 BILLY MIRELES MD Ot K21.9 GASTRO-ESOPHAGEAL REFLUX DISEASE WITHOUT 11/03/2017 BILLY MIRELES MD Ot R10.31 RIGHT LOWER QUADRANT PAIN 11/03/2017 BILLY MIRELES MD Ot Z88.0 ALLERGY STATUS TO PENICILLIN 11/03/2017 BILLY MIRELES MD Ot Z88.2 ALLERGY STATUS TO SULFONAMIDES STATUS 11/03/2017 BILLY MIRELES MD Ot Z90.49 ACQUIRED ABSENCE OF OTHER SPECIFIED PART 11/17/2017 BERNMASON PEREIRAIS Ot F17.210 NICOTINE DEPENDENCE, CIGARETTES, UNCOMPL 11/17/2017 PANCHITO ANTOINE Ot F32.9 MAJOR DEPRESSIVE DISORDER, SINGLE EPISOD 11/17/2017 BERNMASON PEREIRAIS Ot F41.9 ANXIETY DISORDER, UNSPECIFIED 11/17/2017 MASON ANTOINEIS Ot F43.10 POST-TRAUMATIC STRESS DISORDER, UNSPECIF 11/17/2017 MASON ANTOINEIS Ot G43.909 MIGRAINE, UNSP, NOT INTRACTABLE, WITHOUT 11/17/2017 PANCHITO ANTOINE Ot K21.9 GASTRO- ESOPHAGEAL REFLUX DISEASE WITHOUT 11/17/2017 PANCHITO ANTOINE Ot Z87.448 PERSONAL HISTORY OF OTHER DISEASES OF UR 11/17/2017 PANCHITO ANTOINE Ot Z88.0 ALLERGY STATUS TO PENICILLIN 11/17/2017 PANCHITO ANTOINE Ot Z88.8 ALLERGY STATUS TO OTH DRUG/MEDS/BIOL SUB 11/17/2017 PANCHITO ANTOINE Ot Z90.89 ACQUIRED ABSENCE OF OTHER ORGANS 11/17/2017 PANCHITO ANTOINE Ot Z97.5 PRESENCE OF (INTRAUTERINE) CONTRACEPTIVE 11/20/2017 JUAN MIGUEL JIMENEZ APRN Ot F32.9 MAJOR DEPRESSIVE DISORDER, SINGLE EPISOD 11/20/2017 JUAN MIGUEL JIMENEZ APRN Ot F41.9 ANXIETY DISORDER, UNSPECIFIED 11/20/2017 JUAN MIGUEL JIMENEZ APRN Ot F43.10 POST-TRAUMATIC STRESS DISORDER, UNSPECIF 11/20/2017 JUAN MIGUEL JIMENEZ APRN Ot G43.909 MIGRAINE, UNSP, NOT INTRACTABLE, WITHOUT 11/20/2017 JUAN MIGUEL JIMENEZ APRN Ot K21.9 GASTRO-ESOPHAGEAL REFLUX DISEASE WITHOUT 11/20/2017 JUAN MIGUEL JIMENEZ APRN Ot R42 DIZZINESS AND GIDDINESS 11/20/2017 JUAN MIGUEL JIMENEZ APRN Ot R53.1 WEAKNESS 11/20/2017 JUAN MIGUEL JIMENEZ APRN Ot Z77.22 CNTCT W AND EXPSR TO ENVIRON TOBACCO SMO 11/20/2017 JUAN MIGUEL JIMENEZ APRN Ot Z87.448 PERSONAL HISTORY OF OTHER DISEASES OF UR 11/20/2017 JUAN MIGUEL JIMENEZ APRN Ot Z88.0 ALLERGY STATUS TO PENICILLIN 11/20/2017 JUAN MIGUEL JIMENEZ APRN Ot Z88.8 ALLERGY STATUS TO OTH DRUG/MEDS/BIOL SUB 11/20/2017 JUAN MIGUEL JIMENEZ APRN Ot Z90.49 ACQUIRED ABSENCE OF OTHER SPECIFIED PART 11/20/2017 JUAN MIGUEL JIMENEZ APRN Ot Z97.5 PRESENCE OF (INTRAUTERINE) CONTRACEPTIVE 11/24/2017 JUAN MIGUEL JIMENEZ APRN Ot F32.9 MAJOR DEPRESSIVE DISORDER, SINGLE EPISOD 11/24/2017 JUAN MIGUEL JIMENEZ APRN Ot F41.9 ANXIETY DISORDER, UNSPECIFIED 11/24/2017 JUAN MIGUEL JIMENEZ APRN Ot F43.10 POST-TRAUMATIC STRESS DISORDER, UNSPECIF 11/24/2017 JUAN MIGUEL JIMENEZ APRN Ot G43.909 MIGRAINE, UNSP, NOT INTRACTABLE, WITHOUT 11/24/2017 JUAN MIGUEL JIMENEZ APRN Ot K21.9 GASTRO-ESOPHAGEAL REFLUX DISEASE WITHOUT 11/24/2017 JUAN MIGUEL JIMENEZ APRN Ot R42 DIZZINESS AND GIDDINESS 11/24/2017 JUAN MIGUEL JIMENEZ APRN Ot R53.1 WEAKNESS 11/24/2017 JUAN MIGUEL JIMENEZ APRN Ot Z77.22 CNTCT W AND EXPSR TO ENVIRON TOBACCO SMO 11/24/2017 JUAN MIGUEL JIMENEZ WEATHERCASTER Ot Z87.448 PERSONAL HISTORY OF OTHER DISEASES OF UR 11/24/2017 JUAN MIGUEL JIMENEZ APRN Ot Z88.0 ALLERGY STATUS TO PENICILLIN 11/24/2017 JUAN MIGUEL JIMENEZ APRN Ot Z88.8 ALLERGY STATUS TO OTH DRUG/MEDS/BIOL SUB 11/24/2017 JUAN MIGUEL JIMENEZ APRN Ot Z90.49 ACQUIRED ABSENCE OF OTHER SPECIFIED PART 11/24/2017 JUAN MIGUEL JIMENEZ APRN Ot Z97.5 PRESENCE OF (INTRAUTERINE) CONTRACEPTIVE 12/23/2017 WILFREDO YUN, JOCELYNE Key Ot G43.019 MIGRAINE W/O AURA, INTRACTABLE, WITHOUT 12/23/2017 BERNMASON PEREIRAIS Ot F17.210 NICOTINE DEPENDENCE, CIGARETTES, UNCOMPL 12/23/2017 MASON ANTOINEIS Ot F32.9 MAJOR DEPRESSIVE DISORDER, SINGLE EPISOD 12/23/2017 MASON ANTOINEIS Ot F41.9 ANXIETY DISORDER, UNSPECIFIED 12/23/2017 PANCHITO ANTOINE Ot F43.10 POST-TRAUMATIC STRESS DISORDER, UNSPECIF 12/23/2017 PANCHITO ANTOINE Ot G43.909 MIGRAINE, UNSP, NOT INTRACTABLE, WITHOUT 12/23/2017 MASON ANTOINEIS Ot K21.9 GASTRO- ESOPHAGEAL REFLUX DISEASE WITHOUT 12/23/2017 MASON ANTOINEIS Ot Z87.448 PERSONAL HISTORY OF OTHER DISEASES OF UR 12/23/2017 MASON ANTOINEIS Ot Z88.0 ALLERGY STATUS TO PENICILLIN 12/23/2017 BERNKELLI PANCHITO Ot Z88.8 ALLERGY STATUS TO OTH DRUG/MEDS/BIOL SUB 12/23/2017 MASON ANTOINEIS Ot Z90.89 ACQUIRED ABSENCE OF OTHER ORGANS 12/23/2017 BERNOT, PANCHITO Ot Z97.5 PRESENCE OF (INTRAUTERINE) CONTRACEPTIVE 12/25/2017 BERNOT, PANCHITO Ot F17.210 NICOTINE DEPENDENCE, CIGARETTES, UNCOMPL 12/25/2017 ELINA PANCHITO Ot F32.9 MAJOR DEPRESSIVE DISORDER, SINGLE EPISOD 12/25/2017 BERNKELLI PANCHITO Ot F41.9 ANXIETY DISORDER, UNSPECIFIED 12/25/2017 BERNKELLI PANCHITO Ot F43.10 POST-TRAUMATIC STRESS DISORDER, UNSPECIF 12/25/2017 ELINA PANCHITO Ot G43.909 MIGRAINE, UNSP, NOT INTRACTABLE, WITHOUT 12/25/2017 BERNOT, PANCHITO Ot K21.9 GASTRO- ESOPHAGEAL REFLUX DISEASE WITHOUT 12/25/2017 BERNOT, PANCHITO Ot Z87.448 PERSONAL HISTORY OF OTHER DISEASES OF UR 12/25/2017 TYLEROT PANCHITO Ot Z88.0 ALLERGY STATUS TO PENICILLIN 12/25/2017 BERNOT, PANCHITO Ot Z88.8 ALLERGY STATUS TO OTH DRUG/MEDS/BIOL SUB 12/25/2017 BERNOT PANCHTIO Ot Z90.89 ACQUIRED ABSENCE OF OTHER ORGANS 12/25/2017 ELINA PANCHITO Ot Z97.5 PRESENCE OF (INTRAUTERINE) CONTRACEPTIVE 12/29/2017 BERNOT PANCHITO Ot F17.210 NICOTINE DEPENDENCE, CIGARETTES, UNCOMPL 12/29/2017 PANCHITO ANTOINE Ot F32.9 MAJOR DEPRESSIVE DISORDER, SINGLE EPISOD 12/29/2017 ELIAN PANCHITO Ot F41.9 ANXIETY DISORDER, UNSPECIFIED 12/29/2017 ELINA PANCHITO Ot F43.10 POST-TRAUMATIC STRESS DISORDER, UNSPECIF 12/29/2017 ELINA PANCHITO Ot G43.909 MIGRAINE, UNSP, NOT INTRACTABLE, WITHOUT 12/29/2017 BERNOT, PANCHITO Ot K21.9 GASTRO- ESOPHAGEAL REFLUX DISEASE WITHOUT 12/29/2017 BERNOT, PANCHITO Ot Z87.448 PERSONAL HISTORY OF OTHER DISEASES OF UR 12/29/2017 BERNOT PANCHITO Ot Z88.0 ALLERGY STATUS TO PENICILLIN 12/29/2017 BERNOT, PANCHITO Ot Z88.8 ALLERGY STATUS TO OTH DRUG/MEDS/BIOL SUB 12/29/2017 BERNOT, PANCHITO Ot Z90.89 ACQUIRED ABSENCE OF OTHER ORGANS 12/29/2017 BERNOT PANCHITO Ot Z97.5 PRESENCE OF (INTRAUTERINE) CONTRACEPTIVE 01/25/2018 KAIT DO, YE K Ot F17.210 NICOTINE DEPENDENCE, CIGARETTES, UNCOMPL 01/25/2018 KAIT YE K Ot F32.9 MAJOR DEPRESSIVE DISORDER, SINGLE EPISOD 01/25/2018 KAIT YE K Ot F41.9 ANXIETY DISORDER, UNSPECIFIED 01/25/2018 KAIT YE K Ot F43.10 POST-TRAUMATIC STRESS DISORDER, UNSPECIF 01/25/2018 KAIT DO YE K Ot G43.909 MIGRAINE, UNSP, NOT INTRACTABLE, WITHOUT 01/25/2018 KAIT DO, YE K Ot G89.29 OTHER CHRONIC PAIN 01/25/2018 KAIT DO, YE K Ot K21.9 GASTRO-ESOPHAGEAL REFLUX DISEASE WITHOUT 01/25/2018 KAIT DO YE K Ot R51 HEADACHE 01/25/2018 KAIT YE K Ot Z87.448 PERSONAL HISTORY OF OTHER DISEASES OF UR 01/25/2018 KAIT QUINTANA YE K Ot Z88.0 ALLERGY STATUS TO PENICILLIN 01/25/2018 KAIT YE K Ot Z88.8 ALLERGY STATUS TO OTH DRUG/MEDS/BIOL SUB 01/25/2018 KAIT YE K Ot Z90.49 ACQUIRED ABSENCE OF OTHER SPECIFIED PART 01/25/2018 KAIT DO YE K Ot Z97.5 PRESENCE OF (INTRAUTERINE) CONTRACEPTIVE 01/25/2018 KAIT QUINTANA YE K Ot Z98.890 OTHER SPECIFIED POSTPROCEDURAL STATES 01/27/2018 KAIT QUINTANA YE K Ot F17.210 NICOTINE DEPENDENCE, CIGARETTES, UNCOMPL 01/27/2018 KAIT QUINTANA YE K Ot F32.9 MAJOR DEPRESSIVE DISORDER, SINGLE EPISOD 01/27/2018 KAIT YE K Ot F41.9 ANXIETY DISORDER, UNSPECIFIED 01/27/2018 KAIT DO YE K Ot F43.10 POST-TRAUMATIC STRESS DISORDER, UNSPECIF 01/27/2018 KAIT YE K Ot G43.909 MIGRAINE, UNSP, NOT INTRACTABLE, WITHOUT 01/27/2018 KAIT DO YE K Ot G89.29 OTHER CHRONIC PAIN 01/27/2018 KAIT DO YE K Ot K21.9 GASTRO-ESOPHAGEAL REFLUX DISEASE WITHOUT 01/27/2018 KAIT DO YE K Ot R51 HEADACHE 01/27/2018 [facility], YE K Ot Z87.448 PERSONAL HISTORY OF OTHER DISEASES OF UR 01/[facility].0 ALLERGY STATUS TO PENICILLIN 01/27/2018 [facility], YE K Ot Z88.8 ALLERGY STATUS TO OTH DRUG/MEDS/BIOL SUB 01/27/2018 [place] YE K Ot Z90.49 ACQUIRED ABSENCE OF OTHER SPECIFIED PART 01/27/2018 [facility] YE K Ot Z97.5 PRESENCE OF (INTRAUTERINE) CONTRACEPTIVE 01/27/2018 [facility], YE K Ot Z98.890 OTHER SPECIFIED POSTPROCEDURAL STATES 01/31/2018 [facility] YE K Ot F17.210 NICOTINE DEPENDENCE, CIGARETTES, UNCOMPL 01/31/2018 [facility] YE K Ot F32.9 MAJOR DEPRESSIVE DISORDER, SINGLE EPISOD 01/31/2018 [facility] YE K Ot F41.9 ANXIETY DISORDER, UNSPECIFIED 01/31/2018 [facility] YE K Ot F43.10 POST-TRAUMATIC STRESS DISORDER, UNSPECIF 01/31/2018 [facility] YE K Ot G43.909 MIGRAINE, UNSP, NOT INTRACTABLE, WITHOUT 01/31/2018 [facility], YE K Ot G89.29 OTHER CHRONIC PAIN 01/31/2018 [facility] YE K Ot K21.9 GASTRO-ESOPHAGEAL REFLUX DISEASE WITHOUT 01/31/2018 [place] YE K Ot R51 HEADACHE 01/31/2018 [facility] YE K Ot Z87.448 PERSONAL HISTORY OF OTHER DISEASES OF UR 01/31/2018 [facility] YE K Ot Z88.0 ALLERGY STATUS TO PENICILLIN 01/31/2018 [facility] YE K Ot Z88.8 ALLERGY STATUS TO OTH DRUG/MEDS/BIOL SUB 01/31/2018 [facility] YE K Ot Z90.49 ACQUIRED ABSENCE OF OTHER SPECIFIED PART 01/31/2018 [facility] YE K Ot Z97.5 PRESENCE OF (INTRAUTERINE) CONTRACEPTIVE 01/31/2018 [facility], YE K Ot Z98.890 OTHER SPECIFIED POSTPROCEDURAL STATES 02/04/2018 [facility] YE K Ot F17.210 NICOTINE DEPENDENCE, CIGARETTES, UNCOMPL 02/04/2018 [place] YE [place] Ot F32.9 MAJOR DEPRESSIVE DISORDER, SINGLE EPISOD 02/04/2018 [facility] [place] DO Ot F41.9 ANXIETY DISORDER, UNSPECIFIED 02/04/2018 [facility] [place] DO Ot F43.10 POST-TRAUMATIC STRESS DISORDER, UNSPECIF 02/04/2018 [facility] J[facility] K Ot G89.29 OTHER CHRONIC PAIN 02/04/2018 [facility] J[facility] [place] K Ot K21.9 GASTRO-ESOPHAGEAL REFLUX DISEASE WITHOUT 02/04/2018 [facility] J[facility] [place] K Ot R11.2 NAUSEA WITH VOMITING, UNSPECIFIED 02/04/2018 [facility] J[facility] [place] K Ot R51 HEADACHE 02/04/2018 [facility] K Ot R56.9 UNSPECIFIED CONVULSIONS 02/04/2018 [facility] [place] YE Key Ot Z88.0 ALLERGY STATUS TO PENICILLIN 02/04/2018 [facility] YE K Ot Z88.8 ALLERGY STATUS TO OTH DRUG/MEDS/BIOL SUB 02/04/2018 [facility] [place] DO Ot Z90.49 ACQUIRED ABSENCE OF OTHER SPECIFIED PART 02/04/2018 [facility] [place] YE Key Ot Z97.5 PRESENCE OF (INTRAUTERINE) CONTRACEPTIVE 02/04/2018 [facility] [place] YE Shahid Ot Z98.84 BARIATRIC SURGERY STATUS 02/04/2018 [facility] CARB[place]O DO Ot Z98.890 OTHER SPECIFIED POSTPROCEDURAL STATES 02/05/2018 [facility] [place] DO K Ot F17.210 NICOTINE DEPENDENCE, CIGARETTES, UNCOMPL 02/05/2018 [facility] [place] YE Key Ot F32.9 MAJOR DEPRESSIVE DISORDER, SINGLE EPISOD 02/05/2018 [facility] YE Shahid Ot F41.9 ANXIETY DISORDER, UNSPECIFIED 02/05/2018 [facility] Shahid Ot F43.10 POST-TRAUMATIC STRESS DISORDER, UNSPECIF 02/05/2018 [facility] Shahid Ot G89.29 OTHER CHRONIC PAIN 02/05/2018 [facility] J[facility] K Ot K21.9 GASTRO-ESOPHAGEAL REFLUX DISEASE WITHOUT 02/05/2018 [facility] JAMES QU[place] K Ot R11.2 NAUSEA WITH VOMITING, UNSPECIFIED 02/05/2018 [facility] YE K Ot R51 HEADACHE 02/05/2018 [facility] YE K Ot R56.9 UNSPECIFIED CONVULSIONS 02/05/2018 [facility] [place] Shahid Ot Z88.0 ALLERGY STATUS TO PENICILLIN 02/05/2018 [facility] K Ot Z88.8 ALLERGY STATUS TO OTH DRUG/MEDS/BIOL SUB 02/05/2018 [facility] Shahid Ot Z90.49 ACQUIRED ABSENCE OF OTHER SPECIFIED PART 02/05/2018 [facility] YE QUIN[place]NA Ot Z97.5 PRESENCE OF (INTRAUTERINE) CONTRACEPTIVE 02/05/2018 [facility] [place] K Ot Z98.84 BARIATRIC SURGERY STATUS 02/05/2018 [facility] [place] Shahid Ot Z98.890 OTHER SPECIFIED POSTPROCEDURAL STATES 02/07/2018 [place] ANTOINE Ot A08.4 VIRAL INTESTINAL INFECTION, UNSPECIFIED 02/07/2018 [place] ANTOINE Ot F32.9 MAJOR DEPRESSIVE DISORDER, SINGLE EPISOD 02/07/2018 [place] ANTOINE Ot F41.9 ANXIETY DISORDER, UNSPECIFIED 02/07/2018 [facility] ANTOINE Ot F43.10 POST-TRAUMATIC STRESS DISORDER, UNSPECIF 02/07/2018 [facility] ANTOINE Ot G43.909 MIGRAINE, UNSP, NOT INTRACTABLE, WITHOUT 02/07/2018 [place] ANTOINE Ot K21.9 GASTRO- ESOPHAGEAL REFLUX DISEASE WITHOUT 02/07/2018 [place] ANTOINE Ot R53.1 WEAKNESS 02/07/2018 [facility] ANTOINE Ot Z77.22 CNTCT W AND EXPSR TO ENVIRON TOBACCO SMO 02/07/2018 [place] ANTOINEIS Ot Z87.448 PERSONAL HISTORY OF OTHER DISEASES OF UR 02/07/2018 [place] ANTOINE Ot Z88.0 ALLERGY STATUS TO PENICILLIN 02/07/2018 [place] ANTOINEIS Ot Z88.8 ALLERGY STATUS TO OTH DRUG/MEDS/BIOL SUB 02/07/2018 [place] ANTOINEIS Ot Z90.49 ACQUIRED ABSENCE OF OTHER SPECIFIED PART 02/07/2018 [place] ANTOINE Ot Z97.5 PRESENCE OF (INTRAUTERINE) CONTRACEPTIVE 02/07/2018 [place] ANTOINEIS Ot Z98.890 OTHER SPECIFIED POSTPROCEDURAL STATES 02/09/2018 [place] ANTOINE Ot A08.4 VIRAL INTESTINAL INFECTION, UNSPECIFIED 02/09/2018 [facility] ANTOINE Ot F32.9 MAJOR DEPRESSIVE DISORDER, SINGLE EPISOD 02/09/2018 [facility] ANTOINE Ot F41.9 ANXIETY DISORDER, UNSPECIFIED 02/09/2018 [facility] ANTOINE Ot F43.10 POST-TRAUMATIC STRESS DISORDER, UNSPECIF 02/09/2018 [place] ANTOINEIS Ot G43.909 MIGRAINE, UNSP, NOT INTRACTABLE, WITHOUT 02/09/2018 [place] ANTIONE Ot K21.9 GASTRO- ESOPHAGEAL REFLUX DISEASE WITHOUT 02/09/2018 [facility] ANTOINE Ot R53.1 WEAKNESS 02/09/2018 [facility] ANTOINE Ot Z77.22 CNTCT W AND EXPSR TO ENVIRON TOBACCO SMO 02/09/2018 [place] ANTOINE[facility] Ot Z87.448 PERSONAL HISTORY OF OTHER DISEASES OF UR 02/09/2018 [place] ANTOINE Ot Z88.0 ALLERGY STATUS TO PENICILLIN 02/09/2018 [place] ANTOINEIS Ot Z88.8 ALLERGY STATUS TO OTH DRUG/MEDS/BIOL SUB 02/09/2018 [place] ANTOINEIS Ot Z90.49 ACQUIRED ABSENCE OF OTHER SPECIFIED PART 02/09/2018 [place] ANTOINE Ot Z97.5 PRESENCE OF (INTRAUTERINE) CONTRACEPTIVE 02/09/2018 [place] ANTOINEIS Ot Z98.890 OTHER SPECIFIED POSTPROCEDURAL STATES 04/12/2018 [place] ANTOINEIS Ot F17.210 NICOTINE DEPENDENCE, CIGARETTES, UNCOMPL 04/12/2018 [place] ANTOINEIS Ot F32.9 MAJOR DEPRESSIVE DISORDER, SINGLE EPISOD 04/12/2018 [place] ANTOINE Ot F41.9 ANXIETY DISORDER, UNSPECIFIED 04/12/2018 [facility] ANTOINE Ot F43.10 POST-TRAUMATIC STRESS DISORDER, UNSPECIF 04/12/2018 [facility] ANTOINE Ot G43.909 MIGRAINE, UNSP, NOT INTRACTABLE, WITHOUT 04/12/2018 [place] ANTOINEIS Ot K02.9 DENTAL CARIES, UNSPECIFIED 04/12/2018 [place] ANTOINEIS Ot K04.7 PERIAPICAL ABSCESS WITHOUT SINUS 04/12/2018 [place] ANTOINEIS Ot K21.9 GASTRO- ESOPHAGEAL REFLUX DISEASE WITHOUT 04/12/2018 [place] ANTOINEIS Ot R68.84 JAW PAIN 04/12/2018 [place] ANTOINEIS Ot Z87.19 PERSONAL HISTORY OF OTHER DISEASES OF TH 04/12/2018 [place] ANTOINEIS Ot Z87.448 PERSONAL HISTORY OF OTHER DISEASES OF UR 04/12/2018 [facility] ANTOINEIS Ot Z88.0 ALLERGY STATUS TO PENICILLIN 04/12/2018 [place] ANTOINEIS Ot Z88.8 ALLERGY STATUS TO OTH DRUG/MEDS/BIOL SUB 04/12/2018 [place] ANTOINEIS Ot Z90.49 ACQUIRED ABSENCE OF OTHER SPECIFIED PART 04/12/2018 [place] ANTOINE[facility] Ot Z97.5 PRESENCE OF (INTRAUTERINE) CONTRACEPTIVE 04/12/2018 [place] ANTOINEIS Ot Z98.890 OTHER SPECIFIED POSTPROCEDURAL STATES 04/14/2018 [place] ANTOINEIS Ot F17.210 NICOTINE DEPENDENCE, CIGARETTES, UNCOMPL 04/14/2018 [place] ANTOINEIS Ot F32.9 MAJOR DEPRESSIVE DISORDER, SINGLE EPISOD 04/14/2018 [place] ANTOINE Ot F41.9 ANXIETY DISORDER, UNSPECIFIED 04/14/2018 [place] ANTOINE Ot F43.10 POST-TRAUMATIC STRESS DISORDER, UNSPECIF 04/14/2018 [place] ANTOINE Ot G43.909 MIGRAINE, UNSP, NOT INTRACTABLE, WITHOUT 04/14/2018 [place] ANTOINEIS Ot K02.9 DENTAL CARIES, UNSPECIFIED 04/14/2018 [place] ANTOINEIS Ot K04.7 PERIAPICAL ABSCESS WITHOUT SINUS 04/14/2018 [place] ANTOINEIS Ot K21.9 GASTRO- ESOPHAGEAL REFLUX DISEASE WITHOUT 04/14/2018 [place] ANTOINEIS Ot R68.84 JAW PAIN 04/14/2018 [place] ANTOINEIS Ot Z87.19 PERSONAL HISTORY OF OTHER DISEASES OF TH 04/14/2018 [place] ANTOINE Ot Z87.448 PERSONAL HISTORY OF OTHER DISEASES OF UR 04/14/2018 [place] ANTOINE Ot Z88.0 ALLERGY STATUS TO PENICILLIN 04/14/2018 [facility] ANTOINEIS Ot Z88.8 ALLERGY STATUS TO OTH DRUG/MEDS/BIOL SUB 04/14/2018 [place] ANTOINEIS Ot Z90.49 ACQUIRED ABSENCE OF OTHER SPECIFIED PART 04/14/2018 [place] ANTOINEIS Ot Z97.5 PRESENCE OF (INTRAUTERINE) CONTRACEPTIVE 04/14/2018 [place] ANTOINEIS Ot Z98.890 OTHER SPECIFIED POSTPROCEDURAL STATES 04/22/2018 [place] ANTOINEIS Ot F17.210 NICOTINE DEPENDENCE, CIGARETTES, UNCOMPL 04/22/2018 [place] ANTOINEIS Ot F32.9 MAJOR DEPRESSIVE DISORDER, SINGLE EPISOD 04/22/2018 [place] ANTOINEIS Ot F41.9 ANXIETY DISORDER, UNSPECIFIED 04/22/2018 [facility] PANCHITO Ot F43.10 POST-TRAUMATIC STRESS DISORDER, UNSPECIF 04/22/2018 [facility] PANCHITO Ot G43.909 MIGRAINE, UNSP, NOT INTRACTABLE, WITHOUT 04/22/2018 [facility] PANCHITO Ot K02.9 DENTAL CARIES, UNSPECIFIED 04/22/2018 [facility] ANTOINE Ot K04.7 PERIAPICAL ABSCESS WITHOUT SINUS 04/22/2018 [facility] ANTOINE Ot K21.9 GASTRO- ESOPHAGEAL REFLUX DISEASE WITHOUT 04/22/2018 [facility] ANTOINE Ot R68.84 JAW PAIN 04/22/2018 [facility] ANTOINE Ot Z87.19 PERSONAL HISTORY OF OTHER DISEASES OF TH 04/22/2018 [facility] ANTOINE Ot Z87.448 PERSONAL HISTORY OF OTHER DISEASES OF UR 04/22/2018 [facility] ANTOINE Ot Z88.0 ALLERGY STATUS TO PENICILLIN 04/22/2018 [place] ANTOINE Ot Z88.8 ALLERGY STATUS TO OTH DRUG/MEDS/BIOL SUB 04/22/2018 [facility] ANTOINE Ot Z90.49 ACQUIRED ABSENCE OF OTHER SPECIFIED PART 04/22/2018 [facility] PANCHITO Ot Z97.5 PRESENCE OF (INTRAUTERINE) CONTRACEPTIVE 04/22/2018 [facility] ANTOINE Ot Z98.890 OTHER SPECIFIED POSTPROCEDURAL STATES 05/12/2018 GELLENDER DOWISAM Ot R10.30 LOWER ABDOMINAL PAIN, UNSPECIFIED 05/12/2018 GELLENDER DO, WISAM Lucio Ot Z97.5 PRESENCE OF (INTRAUTERINE) CONTRACEPTIVE 06/04/2018 GELLENDER DO WISAM Lucio Ot R10.30 LOWER ABDOMINAL PAIN, UNSPECIFIED 06/04/2018 GELLENDER DO, WISAM A Ot Z97.5 PRESENCE OF (INTRAUTERINE) CONTRACEPTIVE Procedures Code Description Performed By Performed On [id number] REPAIR ANAL SPHINCTER, OPEN APPROACH 08/08/2015 [id number] INTRODUCE OTH THERAP SUBST IN PERIPH VEI [...] sediment leukocyte count by microscopy (number/high power field) [HPF] NRG Bacteria detection in urine sediment [...] culture - 11/12/15 14:19 Bacterial urine culture [id number] NRG COLONY COUNT >100,000/ML NRG URINE CULTURE [...] sediment leukocyte count by microscopy (number/high power field) [HPF] NRG Bacteria detection in urine sediment [...] Automated erythrocyte mean corpuscular hemoglobin concentration measurement (mass/volume) 35 g/dL 32-36 Automated erythrocyte distribution width ratio 12.8 % 10.0- 14.5 Automated blood platelet count (count/volume) 251 10*3/uL [...] Blood monocytes automated count (number/volume) 0.5 10*3 0.0- 1.0 Automated eosinophil count 0.1 10*3/uL 0.0-0.3 Automated [...] Serum or plasma aspartate aminotransferase measurement (enzymatic activity/volume) 12 U/L 5-34 Serum or plasma alanine aminotransferase measurement (enzymatic activity/volume) 13 U/L 0-55 Serum or plasma protein [...] Automated erythrocyte mean corpuscular hemoglobin concentration measurement (mass/volume) 34 g/dL 32-36 Automated erythrocyte distribution width ratio 12.7 % 10.0- 14.5 Automated blood platelet count (count/volume) 305 10*3/uL [...] Serum or plasma aspartate aminotransferase measurement (enzymatic activity/volume) 8 U/L 5-34 Serum or plasma alanine aminotransferase measurement (enzymatic activity/volume) 13 U/L 0-55 Serum or plasma protein measurement (mass/volume) 6.1 g/dL 6.4-8.2 Serum or plasma albumin measurement (mass/volume) 4.2 g/dL 3.2-4.5 Erythrocyte sedimentation rate by westergren method - 04/03/16 13:58 Erythrocyte sedimentation rate by westergren method 3 mm 0- 35 Urine drug screening test - 11/11/16 19:42 [...] gravity of urine by test strip 1.030 1.016-1.022 Urine protein assay by test strip, [...] sediment leukocyte count by microscopy (number/high power field) [HPF] NRG Bacteria detection in urine sediment [...] culture - 11/11/16 19:42 Bacterial urine culture [id number] NRG COLONY COUNT <10,000 NRG FTX;REPORTABLE PLUS, [...] sediment leukocyte count by microscopy (number/high power field) [HPF] NRG Bacteria detection in urine sediment [...] Automated erythrocyte mean corpuscular hemoglobin concentration measurement (mass/volume) 36 g/dL 32-36 Automated erythrocyte distribution width ratio 12.3 % 10.0- 14.5 Automated blood platelet count (count/volume) 244 10*3/uL [...] Blood monocytes automated count (number/volume) 0.4 10*3 0.0- 1.0 Automated eosinophil count 0.2 10*3/uL 0.0-0.3 Automated [...] Serum or plasma aspartate aminotransferase measurement (enzymatic activity/volume) 11 U/L 5-34 Serum or plasma alanine aminotransferase measurement (enzymatic activity/volume) 8 U/L 0-55 Serum or plasma protein measurement (mass/volume) 7.7 g/dL 6.4-8.2 Serum or plasma albumin measurement (mass/volume) 4.6 g/dL 3.2-4.5 Serum or plasma choriogonadotropin ( test) detection - 04/17/17 21:35 Serum or plasma choriogonadotropin ( test) detection NEGATIVE NEGATIVE Complete blood count (CBC) with automated white blood cell (WBC) differential - 08/31/17 18:49 Blood leukocytes automated count (number/volume) 11.5 10*3/uL 4.3-11.0 Blood erythrocytes automated count (number/volume) 4.38 10*6/uL 4.35-5.85 Venous blood hemoglobin measurement (mass/volume) 15.5 g/dL 11.5-16.0 Blood hematocrit (volume fraction) 43 % 35-52 Automated erythrocyte mean corpuscular volume 98 [foz_us] 80-99 Automated erythrocyte mean corpuscular hemoglobin (mass per erythrocyte) 35 pg 25-34 Automated erythrocyte mean corpuscular hemoglobin concentration measurement (mass/volume) 36 g/dL 32-36 Automated erythrocyte distribution width ratio 13.0 % 10.0- 14.5 Automated blood platelet count (count/volume) 258 10*3/uL 130-400 Automated blood platelet mean volume measurement 10.3 [foz_us] 7.4-10.4 Automated blood neutrophils/100 leukocytes 69 % 42-75 Automated blood lymphocytes/100 leukocytes 25 % 12-44 Blood monocytes/100 leukocytes 6 % 0-12 Automated blood eosinophils/100 leukocytes 0 % 0-10 Automated blood basophils/100 leukocytes 0 % 0-10 Blood neutrophils automated count (number/volume) 7.9 10*3 1.8-7.8 Blood lymphocytes automated count (number/volume) 2.8 10*3 1.0-4.0 Blood monocytes automated count (number/volume) 0.7 10*3 0.0- 1.0 Automated eosinophil count 0.0 10*3/uL 0.0-0.3 Automated blood basophil count (count/volume) 0.0 10*3/uL 0.0-0.1 Comprehensive metabolic panel - 08/31/17 18:49 Serum or plasma sodium measurement (moles/volume) 141 mmol/L 135-145 Serum or plasma potassium measurement (moles/volume) 3.7 mmol/L 3.6-5.0 Serum or plasma chloride measurement (moles/volume) 114 mmol/L 98-107 Carbon dioxide 17 mmol/L 21-32 Serum or plasma anion gap determination (moles/volume) 10 mmol/L 5-14 Serum or plasma urea nitrogen measurement (mass/volume) 12 mg/dL 7-18 Serum or plasma creatinine measurement (mass/volume) 0.68 mg/dL 0.60-1.30 Serum or plasma urea nitrogen/creatinine mass ratio 18 NRG Serum or plasma creatinine measurement with calculation of estimated glomerular filtration rate > NRG Serum or plasma glucose measurement (mass/volume) 87 mg/dL 70-105 Serum or plasma calcium measurement (mass/volume) 9.2 mg/dL 8.5-10.1 Serum or plasma total bilirubin measurement (mass/volume) 0.3 mg/dL 0.1-1.0 Serum or plasma alkaline phosphatase measurement (enzymatic activity/volume) 57 U/L 40-136 Serum or plasma aspartate aminotransferase measurement (enzymatic activity/volume) 13 U/L 5-34 Serum or plasma alanine aminotransferase measurement (enzymatic activity/volume) 13 U/L 0-55 Serum or plasma protein measurement (mass/volume) 7.0 g/dL 6.4-8.2 Serum or plasma albumin measurement (mass/volume) 4.4 g/dL 3.2-4.5 Lipase - 08/31/17 18:49 Lipase 17 U/L 8-78 Complete urinalysis with reflex to culture - 08/31/17 18:50 Urine color determination YELLOW NRG Urine clarity determination CLEAR NRG Urine pH measurement by test strip 5 5-9 Specific gravity of urine by test strip 1.025 1.016-1.022 Urine protein assay by test strip, semi-quantitative 1+ NEGATIVE Urine glucose detection by automated test strip NEGATIVE NEGATIVE Erythrocytes detection in urine sediment by light microscopy 5+ NEGATIVE Urine ketones detection by automated test strip NEGATIVE NEGATIVE Urine nitrite detection by test strip NEGATIVE NEGATIVE Urine total bilirubin detection by test strip NEGATIVE NEGATIVE Urine urobilinogen measurement by automated test strip (mass/volume) NORMAL NORMAL Urine leukocyte esterase detection by dipstick 1+ NEGATIVE Automated urine sediment erythrocyte count by microscopy (number/high power field) [HPF] NRG Automated urine sediment leukocyte count by microscopy (number/high power field) NONE NRG Bacteria detection in urine sediment by light microscopy TRACE NRG Squamous epithelial cells detection in urine sediment by light microscopy 2-5 NRG Crystals detection in urine sediment by light microscopy NONE NRG Casts detection in urine sediment by light microscopy NONE NRG Mucus detection in urine sediment by light microscopy SMALL NRG Complete urinalysis with reflex to culture NO NRG Urine drug screening test - 08/31/17 18:50 Urine phencyclidine detection by screening method NEGATIVE NEGATIVE Urine benzodiazepines detection by screening method POSITIVE NEGATIVE Urine cocaine detection NEGATIVE NEGATIVE Urine [...] Complete urinalysis with reflex to culture - 10/31/17 20:13 Urine color determination YELLOW NRG Urine clarity determination CLEAR NRG Urine pH measurement by test strip 6 5-9 Specific gravity of urine by test strip 1.025 1.016-1.022 Urine protein assay by test strip, semi-quantitative 3+ NEGATIVE Urine glucose detection by automated test strip NEGATIVE NEGATIVE Erythrocytes detection in urine sediment by light microscopy 2+ NEGATIVE Urine ketones detection by automated test strip NEGATIVE NEGATIVE Urine nitrite detection by test strip NEGATIVE NEGATIVE Urine total bilirubin detection by test strip NEGATIVE NEGATIVE Urine urobilinogen measurement by automated test strip (mass/volume) NORMAL NORMAL Urine leukocyte esterase detection by dipstick 1+ NEGATIVE Automated urine sediment erythrocyte count by microscopy (number/high power field) RARE NRG Automated urine sediment leukocyte count by microscopy (number/high power field) [HPF] NRG Bacteria detection in urine sediment by light microscopy TRACE NRG Crystals detection in urine sediment by light microscopy NONE NRG Casts detection in urine sediment by light microscopy NONE NRG Mucus detection in urine sediment by light microscopy LARGE NRG Complete urinalysis with reflex to culture NO NRG Chlamydia DNA amp probe, urine - 10/31/17 20:13 Chlamydia DNA amp probe, urine Not Detected Not Detected Urine Neisseria gonorrhoeae DNA assay - 10/31/17 20:13 Gonorrhea amp DNA-urine Not Detected Not Detected Complete urinalysis with reflex to culture - 11/20/17 19:17 Urine color determination YELLOW NRG Urine clarity determination MUCOUS NRG Urine pH measurement by test strip 8 5-9 Specific gravity of urine by test strip 1.010 1.016-1.022 Urine protein assay by test strip, semi-quantitative 2+ NEGATIVE Urine glucose detection by automated test strip NEGATIVE NEGATIVE Erythrocytes detection in urine sediment by light microscopy NEGATIVE NEGATIVE Urine ketones detection by automated test strip NEGATIVE NEGATIVE Urine nitrite detection by test strip NEGATIVE NEGATIVE Urine total bilirubin detection by test strip NEGATIVE NEGATIVE Urine urobilinogen measurement by automated test strip (mass/volume) NORMAL NORMAL Urine leukocyte esterase detection by dipstick 1+ NEGATIVE Automated urine sediment erythrocyte count by microscopy (number/high power field) NONE NRG Automated urine sediment leukocyte count by microscopy (number/high power field) [HPF] NRG Bacteria detection in urine sediment by light microscopy FEW NRG Squamous epithelial cells detection in urine [...] by light microscopy LARGE VANESA PHOSPHATE NRG Urine drug screening test - 11/20/17 19:17 Urine phencyclidine detection by screening method NEGATIVE NEGATIVE Urine benzodiazepines detection by screening method POSITIVE NEGATIVE Urine cocaine detection NEGATIVE NEGATIVE Urine [...] NEGATIVE Urine propoxyphene detection NEGATIVE NEGATIVE Complete blood count (CBC) with automated white blood cell (WBC) differential - 11/20/17 19:29 Blood leukocytes automated count (number/volume) 8.9 10*3/uL 4.3-11.0 Blood erythrocytes automated count (number/volume) 3.79 10*6/uL 4.35-5.85 Venous blood hemoglobin measurement (mass/volume) 12.9 g/dL 11.5-16.0 Blood hematocrit (volume fraction) 38 % 35-52 Automated erythrocyte mean corpuscular volume 101 [foz_us] 80-99 Automated erythrocyte mean corpuscular hemoglobin (mass per erythrocyte) 34 pg 25-34 Automated erythrocyte mean corpuscular hemoglobin concentration measurement (mass/volume) 34 g/dL 32-36 Automated erythrocyte distribution width ratio 12.5 % 10.0- 14.5 Automated blood platelet count (count/volume) 337 10*3/uL 130-400 Automated blood platelet mean volume measurement 9.6 [foz_us] 7.4-10.4 Automated blood neutrophils/100 leukocytes 59 % 42-75 Automated blood lymphocytes/100 leukocytes 35 % 12-44 Blood monocytes/100 leukocytes 5 % 0-12 Automated blood eosinophils/100 leukocytes 1 % 0-10 Automated blood basophils/100 leukocytes 1 % 0-10 Blood neutrophils automated count (number/volume) 5.2 10*3 1.8-7.8 Blood lymphocytes automated count (number/volume) 3.2 10*3 1.0-4.0 Blood monocytes automated count (number/volume) 0.4 10*3 0.0- 1.0 Automated eosinophil count 0.1 10*3/uL 0.0-0.3 Automated blood basophil count (count/volume) 0.1 10*3/uL 0.0-0.1 Comprehensive metabolic panel - 11/20/17 19:29 Serum or plasma sodium measurement (moles/volume) 137 mmol/L 135-145 Serum or plasma potassium measurement (moles/volume) 3.7 mmol/L 3.6-5.0 Serum or plasma chloride measurement (moles/volume) 111 mmol/L 98-107 Carbon dioxide 17 mmol/L 21-32 Serum or plasma anion gap determination (moles/volume) 9 mmol/L 5-14 Serum or plasma urea nitrogen measurement (mass/volume) 12 mg/dL 7-18 Serum or plasma creatinine measurement (mass/volume) 0.65 mg/dL 0.60-1.30 Serum or plasma urea nitrogen/creatinine mass ratio 18 NRG Serum or plasma creatinine measurement with calculation of estimated glomerular filtration rate > NRG Serum or plasma glucose measurement (mass/volume) 85 mg/dL 70-105 Serum or plasma calcium measurement (mass/volume) 9.2 mg/dL 8.5-10.1 Serum or plasma total bilirubin measurement (mass/volume) 0.2 mg/dL 0.1-1.0 Serum or plasma alkaline phosphatase measurement (enzymatic activity/volume) 47 U/L 40-136 Serum or plasma aspartate aminotransferase measurement (enzymatic activity/volume) 11 U/L 5-34 Serum or plasma alanine aminotransferase measurement (enzymatic activity/volume) 12 U/L 0-55 Serum or plasma protein measurement (mass/volume) 6.7 g/dL 6.4-8.2 Serum or plasma albumin measurement (mass/volume) 4.1 g/dL 3.2-4.5 CALCIUM CORRECTED 9.1 mg/dL 8.5-10.1 THYROID STIMULATING HORMONE - 11/20/17 19:29 THYROID STIMULATING HORMONE 0.54 u[iU]/mL 0.35-4.94 TICK PANEL WITHOUT LYME - 11/20/17 19:29 Serum Ehrlichia chaffeensis IgG antibody detection <1:16 <1:16 Serum Ehrlichia chaffeensis IgM antibody detection <1:10 <1:10 Serum Rickettsia rickettsii IgG antibody assay (units/volume) < <1:16 Ono spotted fever panel < <1:10 Francisella tularensis antibody assay 1:20 NRG Complete blood count (CBC) with automated white blood cell (WBC) differential - 02/03/18 23:47 Blood leukocytes automated count (number/volume) 8.8 10*3/uL 4.3-11.0 Blood erythrocytes automated count (number/volume) 3.75 10*6/uL 4.35-5.85 Venous blood hemoglobin measurement (mass/volume) 11.9 g/dL 11.5-16.0 Blood hematocrit (volume fraction) 37 % 35-52 Automated erythrocyte mean corpuscular volume 98 [foz_us] 80-99 Automated erythrocyte mean corpuscular hemoglobin (mass per erythrocyte) 32 pg 25-34 Automated erythrocyte mean corpuscular hemoglobin concentration measurement (mass/volume) 33 g/dL 32-36 Automated erythrocyte distribution width ratio 14.7 % 10.0- 14.5 Automated blood platelet count (count/volume) 299 10*3/uL 130-400 Automated blood platelet mean volume measurement 10.3 [foz_us] 7.4-10.4 Automated blood neutrophils/100 leukocytes 42 % 42-75 Automated blood lymphocytes/100 leukocytes 50 % 12-44 Blood monocytes/100 leukocytes 7 % 0-12 Automated blood eosinophils/100 leukocytes 1 % 0-10 Automated blood basophils/100 leukocytes 0 % 0-10 Blood neutrophils automated count (number/volume) 3.7 10*3 1.8-7.8 Blood lymphocytes automated count (number/volume) 4.4 10*3 1.0-4.0 Blood monocytes automated count (number/volume) 0.6 10*3 0.0- 1.0 Automated eosinophil count 0.1 10*3/uL 0.0-0.3 Automated blood basophil count (count/volume) 0.0 10*3/uL 0.0-0.1 Serum or plasma choriogonadotropin ( test) detection - 02/03/18 23:47 Serum or plasma choriogonadotropin ( test) detection NEGATIVE NEGATIVE Comprehensive metabolic panel - 02/03/18 23:47 Serum or plasma sodium measurement (moles/volume) 141 mmol/L 135-145 Serum or plasma potassium measurement (moles/volume) 4.1 mmol/L 3.6-5.0 Serum or plasma chloride measurement (moles/volume) 111 mmol/L 98-107 Carbon dioxide 19 mmol/L 21-32 Serum or plasma anion gap determination (moles/volume) 11 mmol/L 5-14 Serum or plasma urea nitrogen measurement (mass/volume) 13 mg/dL 7-18 Serum or plasma creatinine measurement (mass/volume) 0.74 mg/dL 0.60-1.30 Serum or plasma urea nitrogen/creatinine mass ratio 18 NRG Serum or plasma creatinine measurement with calculation of estimated glomerular filtration rate > NRG Serum or plasma glucose measurement (mass/volume) 104 mg/dL 70-105 Serum or plasma calcium measurement (mass/volume) 9.0 mg/dL 8.5-10.1 Serum or plasma total bilirubin measurement (mass/volume) 0.1 mg/dL 0.1-1.0 Serum or plasma alkaline phosphatase measurement (enzymatic activity/volume) 41 U/L 40-136 Serum or plasma aspartate aminotransferase measurement (enzymatic activity/volume) 19 U/L 5-34 Serum or plasma alanine aminotransferase measurement (enzymatic activity/volume) 12 U/L 0-55 Serum or plasma protein measurement (mass/volume) 6.6 g/dL 6.4-8.2 Serum or plasma albumin measurement (mass/volume) 3.8 g/dL 3.2-4.5 CALCIUM CORRECTED 9.2 mg/dL 8.5-10.1 Magnesium - 02/03/18 23:47 Magnesium 2.0 mg/dL 1.8-2.4 Serum or plasma creatine kinase measurement (enzymatic activity/volume) - 02/03/18 23:47 Serum or plasma creatine kinase measurement (enzymatic activity/volume) 75 U/L 29-168 Serum or plasma ethanol measurement (mass/volume) - 02/03/18 23:47 Serum or plasma ethanol measurement (mass/volume) < mg/dL <10 Urine drug screening test - 02/04/18 00:05 Urine phencyclidine detection by screening method NEGATIVE NEGATIVE Urine benzodiazepines detection by screening method POSITIVE NEGATIVE Urine cocaine detection NEGATIVE NEGATIVE Urine [...] Complete urinalysis with reflex to culture - 02/04/18 00:05 Urine color determination YELLOW NRG Urine clarity determination CLEAR NRG Urine pH measurement by test strip 6 5-9 Specific gravity of urine by test strip 1.025 1.016-1.022 Urine protein assay by test strip, semi-quantitative 2+ NEGATIVE Urine glucose detection by automated test strip NEGATIVE NEGATIVE Erythrocytes detection in urine sediment by light microscopy NEGATIVE NEGATIVE Urine ketones detection by automated test strip NEGATIVE NEGATIVE Urine nitrite detection by test strip NEGATIVE NEGATIVE Urine total bilirubin detection by test strip NEGATIVE NEGATIVE Urine urobilinogen measurement by automated test strip (mass/volume) NORMAL NORMAL Urine leukocyte esterase detection by dipstick 1+ NEGATIVE Automated urine sediment erythrocyte count by microscopy (number/high power field) NONE NRG Automated urine sediment leukocyte count by microscopy (number/high power field) RARE NRG Bacteria detection in urine sediment by light microscopy FEW NRG Squamous epithelial cells detection in urine sediment by light microscopy 2-5 NRG Crystals detection in urine sediment by light microscopy NONE NRG Casts detection in urine sediment by light microscopy NONE NRG Mucus detection in urine sediment by light microscopy LARGE NRG Complete urinalysis with reflex to culture NO NRG Complete urinalysis with reflex to culture - 02/07/18 17:28 Urine color determination YELLOW NRG Urine clarity [...] erythrocyte count by microscopy (number/high power field) RARE NRG Automated urine sediment leukocyte count by microscopy (number/high power field) [HPF] NRG Bacteria detection in urine sediment by light microscopy NEGATIVE NRG Squamous epithelial cells detection in urine sediment by light microscopy 2-5 NRG Crystals detection in urine sediment by light microscopy NONE NRG Casts detection in urine sediment by light microscopy NONE NRG Mucus detection in urine sediment by light microscopy LARGE NRG Complete urinalysis with reflex to culture NO NRG Complete blood count (CBC) with automated white blood cell (WBC) differential - 02/07/18 17:37 Blood leukocytes automated count (number/volume) 9.7 10*3/uL 4.3-11.0 Blood erythrocytes automated count (number/volume) 4.45 10*6/uL 4.35-5.85 Venous blood hemoglobin measurement (mass/volume) 14.0 g/dL 11.5-16.0 Blood hematocrit (volume fraction) 42 % 35-52 Automated erythrocyte mean corpuscular volume 94 [foz_us] 80-99 Automated erythrocyte mean corpuscular hemoglobin (mass per erythrocyte) 32 pg 25-34 Automated erythrocyte mean corpuscular hemoglobin concentration measurement (mass/volume) 34 g/dL 32-36 Automated erythrocyte distribution width ratio 14.3 % 10.0- 14.5 Automated blood platelet count (count/volume) 333 10*3/uL 130-400 Automated blood platelet mean volume measurement 9.8 [foz_us] 7.4-10.4 Automated blood neutrophils/100 leukocytes 56 % 42-75 Automated blood lymphocytes/100 leukocytes 37 % 12-44 Blood monocytes/100 leukocytes 6 % 0-12 Automated blood eosinophils/100 leukocytes 1 % 0-10 Automated blood basophils/100 leukocytes 1 % 0-10 Blood neutrophils automated count (number/volume) 5.4 10*3 1.8-7.8 Blood lymphocytes automated count (number/volume) 3.6 10*3 1.0-4.0 Blood monocytes automated count (number/volume) 0.5 10*3 0.0- 1.0 Automated eosinophil count 0.1 10*3/uL 0.0-0.3 Automated blood basophil count (count/volume) 0.1 10*3/uL 0.0-0.1 Comprehensive metabolic panel - 02/07/18 17:37 Serum or plasma sodium measurement (moles/volume) 141 mmol/L 135-145 Serum or plasma potassium measurement (moles/volume) 3.7 mmol/L 3.6-5.0 Serum or plasma chloride measurement (moles/volume) 105 mmol/L 98-107 Carbon dioxide 25 mmol/L 21-32 Serum or plasma anion gap determination (moles/volume) 11 mmol/L 5-14 Serum or plasma urea nitrogen measurement (mass/volume) 8 mg/dL 7-18 Serum or plasma creatinine measurement (mass/volume) 0.66 mg/dL 0.60-1.30 Serum or plasma urea nitrogen/creatinine mass ratio 12 NRG Serum or plasma creatinine measurement with calculation of estimated glomerular filtration rate > NRG Serum or plasma glucose measurement (mass/volume) 96 mg/dL 70-105 Serum or plasma calcium measurement (mass/volume) 10.3 mg/dL 8.5-10.1 Serum or plasma total bilirubin measurement (mass/volume) 0.3 mg/dL 0.1-1.0 Serum or plasma alkaline phosphatase measurement (enzymatic activity/volume) 62 U/L 40-136 Serum or plasma aspartate aminotransferase measurement (enzymatic activity/volume) 14 U/L 5-34 Serum or plasma alanine aminotransferase measurement (enzymatic activity/volume) 13 U/L 0-55 Serum or plasma protein measurement (mass/volume) 8.1 g/dL 6.4-8.2 Serum or plasma albumin measurement (mass/volume) 4.9 g/dL 3.2-4.5 Lipase - 02/07/18 17:37 Lipase 25 U/L 8-78 Encounters ACCT No. Visit Date/Time Discharge Status Pt. Type Provider Facility Loc./Unit Complaint [id number] 12/05/2011 11:38:00 12/05/2011 23:59:59 CLS Outpatient URIEL BENITEZ APRN [id number] 12/05/2011 11:38:00 12/05/2011 23:59:59 CLS Outpatient [facility] 08/23/2014 13:51:26 ACT Document Registration [id number] 08/10/2018 19:19:00 08/10/2018 21:09:00 DIS Emergency PANCHITO ANTOINE [facility] ER BACK AND CHEST PAIN [id number] 05/12/2018 12:01:00 05/12/2018 23:59:59 CLS Outpatient WISAM SHAH DO [facility] RAD LOWER ABD PAIN,HAS IUD [id number] 04/12/2018 16:57:00 04/12/2018 18:08:00 DIS Emergency PANCHITO ANTOINE [facility] ER JAW/NECK PAIN [id number] 02/07/2018 17:02:00 02/07/2018 20:15:00 DIS Emergency PANCHITO ANTOINE [facility] ER WEAKNESS [id number] 02/03/2018 23:43:00 02/04/2018 01:35:00 DIS Emergency KAIT YE QUINTANA [facility] ER SEIZURE [id number] 01/25/2018 20:45:00 01/25/2018 22:48:00 DIS Emergency KAITYE Kunz DO [facility] ER MIGRAINE, VOMITTING [id number] 12/23/2017 09:05:00 12/23/2017 12:22:00 DIS Emergency TYLERPANCHITO PEREIRA [facility] ER MIGRAINE [id number] 11/20/2017 17:49:00 11/20/2017 20:32:00 DIS Emergency JUAN MIGUEL JIMENEZ APRN [facility] ER CONSTANTLY TIRED,FEELS LIKE SHE IS GOING TO FAINT [id number] 11/17/2017 18:29:00 11/17/2017 19:28:00 DIS Emergency PANCHITO ANTOINE [facility] ER MIGRAINE ALL DAY [id number] 10/31/2017 19:52:00 10/31/2017 21:25:00 DIS Emergency BILLY MIRELES MD [facility] ER ABD PAIN;PAIN WITH URINATION [id number] 10/26/2017 19:14:00 10/26/2017 19:43:00 DIS Emergency ELINA PANCHITO [facility] ER TICK BITE [id number] 08/31/2017 18:20:00 08/31/2017 20:05:00 DIS Emergency JUAN MIGUEL JIMENEZ APRN [facility] ER ABD PAIN [id number] 07/11/2017 20:11:00 07/11/2017 21:00:00 DIS Emergency JUAN MIGUEL JIMENEZ APRN [facility] ER MIGRAINE X 1 WK [id number] 04/22/2017 13:22:00 04/22/2017 13:49:00 DIS Emergency JUAN MIGUEL JIMENEZ APRN [facility] ER LEFT FOREFINGER LAC [id number] 04/17/2017 19:46:00 04/17/2017 22:40:00 DIS Emergency DONTE YUN, CHRISTOPHE T [facility] ER HEAVY VAGINAL BLEEDING, FAINT [id number] 03/27/2017 12:04:00 03/27/2017 13:40:00 DIS Emergency KAIT YE QUINTANA [facility] ER MIGRAINES [id number] 02/01/2017 11:28:00 02/01/2017 13:00:00 DIS Emergency JEN YUN, ROBERT Mukherjee [facility] ER MIGRANE [id number] 01/27/2017 21:36:00 01/27/2017 23:35:00 DIS Emergency BILLY MIRELES MD [facility] ER POSS UTI/YEAST INFECTION/ABD AND BACK PAIN [id number] 01/09/2017 17:24:00 01/09/2017 18:09:00 DIS Emergency FADI DAVE MD [facility] ER MIGRAINE [id number] 11/11/2016 19:36:00 11/11/2016 20:26:00 DIS Emergency KAIT QUINTANA YE K [facility] ER POSS UTI [id number] 09/27/2016 09:09:00 09/27/2016 09:40:00 DIS Emergency TENZIN YUN, FADI Bennett [facility] ER MIGRAINE [id number] 07/06/2016 12:57:00 07/06/2016 14:30:00 DIS Emergency JENNIFER ROSAS [facility] ER MIGRAINE [id number] 07/01/2016 19:46:00 07/01/2016 21:12:00 DIS Emergency BILLY MIRELES MD [facility] ER MIGRAINE [id number] 06/22/2016 20:55:00 06/22/2016 23:37:00 DIS Emergency JUAN MIGUEL JIMENEZ APRN [facility] ER MIGRAINE [id number] 05/31/2016 09:52:00 05/31/2016 11:26:00 DIS Emergency SIMON RAMIREZ MD [facility] ER MIGRAINE [id number] 05/27/2016 18:53:00 05/27/2016 21:07:00 DIS Emergency JENNIFER ROSAS [facility] ER MIGRAINE [id number] 05/07/2016 19:02:00 05/07/2016 20:29:00 DIS Emergency YE CARBALLO DO [facility] ER MIGRAINE [id number] 04/03/2016 13:46:00 04/03/2016 23:59:59 CLS Outpatient WILFREDO YUN, JOCELYNE Key [facility] LAB MIGRAINE HEADACHE [id number] 03/29/2016 00:14:00 03/29/2016 01:44:00 DIS Emergency CHRISTOPHE KENT MD [facility] ER CP [id number] 03/26/2016 17:51:00 03/26/2016 21:11:00 DIS Emergency JENNIFER ROSAS [facility] ER MIGRAINE [id number] 03/17/2016 11:25:00 03/17/2016 13:12:00 DIS Emergency FADI DAVE MD [facility] ER MIGRAINE [id number] 03/15/2016 17:36:00 03/15/2016 18:31:00 DIS Emergency JUAN MIGUEL JIMENEZ APRN [facility] ER MIGRAINE [id number] 02/29/2016 20:24:00 02/29/2016 21:25:00 DIS Emergency JUAN MIGUEL JIMENEZ [employer] [facility] ER MIGRAINE [id number] 12/30/2015 19:16:00 12/30/2015 21:08:00 DIS Emergency BRYCESTACEY [employer] [facility] ER MIGRAINE [id number] 11/29/2015 10:15:00 11/29/2015 13:39:00 DIS Emergency BILLY MIRELES MD [facility] ER UNABLE TO URINATE [id number] 11/12/2015 13:21:00 11/12/2015 15:45:00 DIS Emergency DONTE YUN, CHRISTOPHE Madsen [facility] ER BODY ACHES,HEAD ACHE,SINUS PRESSURE,SORE THROAT [id number] 08/12/2015 19:43:00 08/12/2015 21:11:00 DIS Emergency SIMON RAMIREZ MD [facility] ER FEVER,CHILLS [id number] 08/08/2015 07:04:00 08/10/2015 17:45:00 DIS Inpatient LISA QUINTANA TALA C [facility] LDRP INDUCTION [id number] 07/26/2015 22:44:00 07/26/2015 23:55:00 DIS Outpatient GONZALEZTALA Roach DO [facility] WSo LABOR [id number] 07/22/2015 21:26:00 07/22/2015 23:55:00 DIS Outpatient GONZALEZTALA Roach DO [facility] WSo CONTRACTIONS [id number] 07/19/2015 12:11:00 07/19/2015 14:40:00 DIS Outpatient LUIS A [facility]OLA [facility] CONTR[facility] RM 315 [id number] 07/08/2015 18:12:00 07/08/2015 22:45:00 DIS Outpatient LUIS A ARRIOLA MD [facility] POSS CONTRACTIONS 35 WKS PREG [id number] 06/06/2015 19:49:00 06/06/2015 20:48:00 DIS Outpatient GONZALEZTALA Roach DO [facility] ABD PAIN [id number] 01/11/2015 10:23:00 01/11/2015 11:27:00 DIS Emergency JUAN MIGUEL JIMENEZ APRN [facility] ER SYNCOPAL EPISODE 9 WKS PREG [id number] 08/23/2014 13:50:00 08/23/2014 16:05:00 DIS Emergency JENNIFER ROSAS [facility] ER MIGRAINE/NAUSEA [id number] 04/01/2014 08:33:00 04/01/2014 12:10:00 DIS Emergency IONA SWEENEY MD [facility] ER MIGRAINE [id number] 03/10/2014 11:29:00 03/10/2014 12:54:00 DIS Emergency BILLY MIRELES MD [facility] ER UTI SYMPTOMS [id number] 02/20/2014 15:36:00 02/20/2014 16:47:00 DIS Emergency JUAN MIGUEL JIMENEZ [employer] [facility] ER RASH [id number] 12/03/2013 15:33:00 12/03/2013 16:58:00 DIS Emergency JENNIFER ROSAS [facility] ER UTI SYMPTOMS/ABD PAIN [id number] 11/12/2013 18:25:00 11/12/2013 20:14:00 DIS Emergency JUAN MIGUEL JIMENEZ [place] [facility] ER [id number] 09/20/2013 20:53:00 09/20/2013 22:28:00 DIS Emergency [id number] 08/22/2013 00:18:00 08/22/2013 00:47:00 DIS Emergency [id number] 07/27/2013 17:52:00 07/27/2013 19:22:00 DIS Emergency JUAN MIGUEL JIMENEZ [place] [facility] ER [id number] 07/23/2013 20:24:00 07/23/2013 22:14:00 DIS Emergency [id number] 05/27/2013 19:11:00 05/27/2013 21:26:00 DIS Emergency [id number] 04/24/2013 21:55:00 04/25/2013 00:33:00 DIS Emergency [id number] 03/11/2013 19:17:00 03/11/2013 20:48:00 DIS Emergency [id number] 02/10/2013 12:53:00 02/10/2013 23:59:59 CLS Outpatient [id number] 03/20/2016 21:06:00 03/20/2016 22:15:00 DIS Outpatient Yesica Mg [id number] 04/21/2018 11:30:00 04/21/2018 23:59:59 CLS Outpatient EM[facility] LOVELL [facility]
== END 2018-08-10 21:09 | disposition home or self-care (01) ==
LOC: EDUNIT# 19:17 → ER 19:19
DX: J18.9 Pneumonia, unspecified organism (principal); G43.909 Migraine, unspecified, not intractable, without status migrainosus; K21.9 Gastro-esophageal reflux disease without esophagitis; F41.9 Anxiety disorder, unspecified; F43.10 Post-traumatic stress disorder, unspecified; F32.9 Major depressive disorder, single episode, unspecified; F17.210 Nicotine dependence, cigarettes, uncomplicated; Z96.22 Myringotomy tube(s) status; Z90.49 Acquired absence of other specified parts of digestive tract; Z97.5 Presence of (intrauterine) contraceptive device; Z87.448 Personal history of other diseases of urinary system; Z88.0 Allergy status to penicillin; Z88.2 Allergy status to sulfonamides; Z88.8 Allergy status to other drugs, medicaments and biological substances; Z79.52 Long term (current) use of systemic steroids
CPT/HCPCS: 71046

== ENCOUNTER 2018-08-13 05:31 | Outpatient (CLI) | payer MEDICARE, MEDICAID ==
[~2018-08-13] VITALS: Ht 162.6 cm; Wt 47.6 kg
[~2018-08-13 05:31] MED LIST changes: +AZIT250T12 PO
== END 2018-08-13 10:28 | disposition home or self-care (01) ==
LOC: PREOP 05:31
PROVIDERS: ATTEND Obstetrics & Gynecology
DX: Z01.818 Encounter for other preprocedural examination (principal)

== ENCOUNTER → 2018-08-17 | Outpatient (CLI) | payer MEDICARE, MEDICAID ==
[2018-08-17 14:58] LABS: BASOPHILS # (AUTO) 0.1 10^3/uL (0.0-0.1); BASOPHILS % (AUTO) 0 % (0-10); EOSINOPHILS # (AUTO) 0.2 10^3/uL (0.0-0.3); EOSINOPHILS % (AUTO) 2 % (0-10); HEMATOCRIT 41 % (35-52); HEMOGLOBIN 13.1 G/DL (11.5-16.0); LYMPHOCYTES # (AUTO) 4.5 X 10^3 (1.0-4.0); LYMPHOCYTES % (AUTO) 31 % (12-44); MEAN CORPUSCULAR HGB CONC 32 G/DL (32-36); MEAN CORPUSCULAR VOLUME 97 FL (80-99); MEAN PLATELET VOLUME 9.5 FL (7.4-10.4); MONOCYTES # (AUTO) 0.8 X 10^3 (0.0-1.0); MONOCYTES % (AUTO) 6 % (0-12); NEUTROPHILS # (AUTO) 8.9 X 10^3 (1.8-7.8); NEUTROPHILS % (AUTO) 61 % (42-75); PLATELET COUNT 468 10^3/uL (130-400); RED CELL DISTRIBUTION WIDTH 14.3 % (10.0-14.5); WHITE BLOOD COUNT 14.5 10^3/uL (4.3-11.0)
[2018-08-17 14:59] LABS: MEAN CORPUSCULAR HEMOGLOBIN 31 PG (25-34)
[2018-08-17 15:27] LABS: EOSINOPHILS % (MANUAL) 2 %; LYMPHOCYTES % (MANUAL) 27 %; MONOCYTES % (MANUAL) 7 %; NEUTROPHILS % (MANUAL) 65 %; RBC MORPH NORMAL
--- NOTE | 2018-08-17 19:56 | Diagnostic Imaging Report ---
PA and lateral chest at 0304 hours. INDICATION: Pneumonia. FINDINGS: The heart size is within normal limits and stable when compared to 08/10/2018. The prior exam did note an alveolar density in the right lung base suggestive of pneumonia/atelectasis. On this study, the right lung base does seem much better aerated. There is little if any residual pneumonia/atelectasis still present. The lungs are otherwise clear. There is no sign of a pleural effusion. Mediastinum is not widened. The osseous structures are intact. IMPRESSION: 1. The appearance of the chest has improved since the prior exam as the right lung is much better aerated. There is little if any residual pneumonia/atelectasis still present. 2. The overall appearance of the chest is otherwise stable. Dictated by: Dictated on workstation # [id number]
== END ==
LOC: LAB 14:40
PROVIDERS: ATTEND Family Medicine
DX: J18.9 Pneumonia, unspecified organism (principal)
CPT/HCPCS: 36415; 71046; 85007; 85027

== ENCOUNTER 2018-10-28 05:31 | Outpatient (CLI) | payer MEDICARE, MEDICAID ==
[~2018-10-28] VITALS: Ht 162.6 cm; Wt 47.6 kg
[~2018-10-28 05:31] MED LIST changes: -ALPR1TAB7; +ALPR1TAB7 PO; -EREN70AU; +EREN70AU IM; -OMEP20CA12; +OMEP20CA13 PO
[2018-10-28] MEDS ORDERED: ELAG200T PO (10:18)
== END 2018-10-28 10:34 ==
LOC: PREOP 05:31
PROVIDERS: ATTEND Obstetrics & Gynecology
DX: Z01.818 Encounter for other preprocedural examination (principal); N80.9 Endometriosis, unspecified; G89.29 Other chronic pain

== ENCOUNTER 2018-11-03 08:46 | Day surgery (SDC) | payer MEDICARE, MEDICAID ==
[2018-11-03] VITALS (8 sets, daily range): BP systolic 91–116; BP diastolic 55–78
[~2018-11-03] VITALS: Ht 162.6 cm; Wt 50.4 kg
[~2018-11-03 08:46] MED LIST changes: +ELAG200T PO
[2018-11-03] MEDS ORDERED: ceFAZolin INJECTION 1,000 MG in WATER (STERILE) FOR INJECTION 10 ML IV ONE (09:00)
[2018-11-03] MEDS ORDERED: BUPIVACAINE 0.25% 30 ML (SENSORCAINE) VIAL ONE (09:05)
[2018-11-03] MEDS: LACTATED RINGERS 1,000 ML IV PRN ×2 (09:20→11:05)
[2018-11-03] MEDS ORDERED: proPOfol 200 MG/20 ML (DIPRIVAN) VIAL IV ONE (09:54)
[2018-11-03] MEDS ORDERED: SEVOFLURANE (ULTANE) 15 ML INHAL SOLN ONE (09:54)
[2018-11-03] MEDS ORDERED: ROCURONIUM 10 MG/ML 5 ML SYRINGE IV ONE (09:54)
[2018-11-03] MEDS ORDERED: DEXAMETHASONE 10 MG/ML (DECADRON) 1 ML VIAL ONE (09:54)
[2018-11-03] MEDS ORDERED: GLYCOPYRROLATE 0.2 MG/ML (ROBINUL) 2 ML VIAL ONE (09:54)
[2018-11-03] MEDS ORDERED: ONDANSETRON 4 MG/2 ML (SDV) Z0FRAN ONE (09:54)
[2018-11-03] MEDS ORDERED: NEOSTIGMINE 3 MG/3 ML VIAL ONE (09:54)
[2018-11-03] MEDS ORDERED: LIDOCAINE PF 2% 5 ML (XYLOCAINE) VIAL ONE (09:54)
[2018-11-03] MEDS ORDERED: MIDAZOLAM 2 MG/2 ML (VERSED) VIAL ONE (09:55)
[2018-11-03] MEDS ORDERED: fentaNYL INJECTION 100 MCG/2 ML AMP ONE (09:55)
[2018-11-03 09:57] LABS: BASOPHILS % (AUTO) 1 % (0-10); EOSINOPHILS # (AUTO) 0.2 10^3/uL (0.0-0.3); EOSINOPHILS % (AUTO) 2 % (0-10); HEMATOCRIT 34 % (35-52); HEMOGLOBIN 11.3 G/DL (11.5-16.0); LYMPHOCYTES # (AUTO) 3.3 X 10^3 (1.0-4.0); LYMPHOCYTES % (AUTO) 44 % (12-44); MEAN CORPUSCULAR HEMOGLOBIN 31 PG (25-34); MEAN CORPUSCULAR HGB CONC 33 G/DL (32-36); MEAN CORPUSCULAR VOLUME 95 FL (80-99); MEAN PLATELET VOLUME 9.2 FL (7.4-10.4); MONOCYTES # (AUTO) 0.4 X 10^3 (0.0-1.0); MONOCYTES % (AUTO) 5 % (0-12); NEUTROPHILS # (AUTO) 3.5 X 10^3 (1.8-7.8); NEUTROPHILS % (AUTO) 48 % (42-75); PLATELET COUNT 372 10^3/uL (130-400); RED CELL DISTRIBUTION WIDTH 14.7 % (10.0-14.5); WHITE BLOOD COUNT 7.4 10^3/uL (4.3-11.0)
--- NOTE | 2018-11-03 10:40 | Progress Note-Pre Operative ---
Pre-Operative Progress Note H&P Reviewed The H&P was reviewed, patient examined and no changes noted. Patient treated yesterday with Keflex for suspected UTI. culture pending. Will continue antibiotics post operatively Date Seen by Provider: Nov 03, 2018 Time Seen by Provider: 10:30 Date H&P Reviewed: Nov 03, 2018 Time H&P Reviewed: : Pre-Operative Diagnosis: ENDOMETRIOSIS TALA GONZALEZ DO Nov 03, 2018 10:40
[2018-11-03] MEDS ORDERED: PHENYLEPHRINE 100 MCG/ML 10 ML (ANESTHESIA) SYR ONE (11:04)
[2018-11-03] MEDS ORDERED: KETOROLAC 30 MG/ML VIAL ONE (11:31)
[2018-11-03] MEDS ORDERED: KETOROLAC 30 MG/ML VIAL IVP ONE (11:45)
[2018-11-03] MEDS ORDERED: ACETAMINOPHEN 500 MG TAB (TYLENOL) PO PRN (11:45)
[2018-11-03] MEDS ORDERED: ACET-77 PO (11:48)
[2018-11-03] MEDS ORDERED: OXC5T PO (11:48)
[2018-11-03] MEDS ORDERED: IBUP-844 PO (11:48)
--- NOTE | 2018-11-03 11:50 | Discharge Inst-Women's Service ---
Discharge Inst-Women's Serv Depart Medication/Instructions New, Converted or Re-Newed RX: RX on Chart Final Diagnosis ENDOMETRIOSIS Consults/Follow Up Additional Follow Up: Yes (1=[address] GONZALEZ/JAYESH) Activity Activity: Activity as Tolerated Driving Instructions: No Driving for 24 Hours NO SMOKING: NO SMOKING Nothing Inside Vagina: No Douching, No [place], No Tampons Diet Discharge Diet: No Restrictions Symptoms to Report to : Bleeding Excessive, Pain Increased, Fever Over 101 Degrees F, Vaginal Bleeding Increase, Vaginal Discharge Foul For Any Problems or Questions: Contact Your Physician Skin/Wound Care Infection Signs and Symptoms: Increased Redness, Foul Odor of Wound, Increased Drainage, Skin Itchy or Has a Rash, Increased Swelling, Temperature Above 101 F Operative Area Clean and Dry: Keep Incision Clean/Dry Stitches/[place]/Dermabond: Dermabond Bathing Instructions: TALA Hart DO Nov 03, 2018 11:49
[2018-11-03] MEDS ORDERED: IBUPROFEN 600 MG (MOTRIN) TAB PO SCH (12:00)
[2018-11-03] MEDS ORDERED: HYDROmorphone 2 MG/ML VIAL (DILAUDID) IV ONE (12:00)
[2018-11-03] MEDS ORDERED: ONDANSETRON 4 MG/2 ML (SDV) Z0FRAN IVP PRN (12:00)
[2018-11-03] MEDS ORDERED: morphine INJ 10 MG/ML 1ML (SYR OR VIAL) IVP ONE (12:00)
--- NOTE | 2018-11-03 12:35 | NUR ---
PATIENT RETURNED FROM PACU WITH RAISED VOICE/YELLING AND COMPLAINING OF HOW LONG SHE WOULD HAVE TO STAY, SHE WANTS THE DOCTOR TO EXPLAIN WHAT SHE DID TO HER IN SURGERY. PATIENTS UPSET THAT SHE HAS TO STAY 1 HOUR POST OPERATIVE AND AFTER EXPLAINING THAT THE SPOKE WITH HER MOTHER AND THAT SHE WOULD NOT REMEMBER MUCH DUE TO ANESTHESIA THE PATIENT REMAINS VERBALLY AGGRESSIVE. PATIENT KEPT TELLING STAFF TO LEAVE HER ALONE AND JUST WANTS TO LEAVE, BUT WANTS TO ROOM TO EXPLAIN PROCEDURE TO HER. THIS RN PHONED OR TO INFORM ABOUT PATIENT PER PATIENT REQUEST. INFORMED THAT SHE SPOKE WITH MOTHER AND WOULD SEE HER AT POST OPERATIVE APPOINTMENT. THIS RN MADE POST OPERATIVE APPOINTMENT AND AGAIN TRIED TO EXPLAIN TO PATIENT WHY WE NEEDED TO KEEP HER AND THAT WOULD TALK TO HER AT POST OP APPOINTMENT. PATIENT WOULD WELL NOT LISTEN TO HER MOTHER WHEN SHE EXPLAINED WHAT HAD TOLD HER AFTER SURGERY. PATIENT AT 1235 JUMPS OUT OF BED STANDING OUT OF ROOM UNWILLING TO LISTEN TO THIS RN, THIS RN INFORMED THAT PATIENT IS STILL UNDER ANESTHETIC AND OFFERED CHAIR, PATIENT REFUSED. AT THIS TIME PATIENTS DEMANDS SEVERAL TIMES TO GO HOME. LUZ MARIA RN AT DOORWAY WITH PATIENT AND SHE REQUESTS TO HAVE IV OUT AND FLUIDS REMOVED. LUZ MARIA MILLER INFORMED WOULD LIKE TO KEEP IN CASE NEEDS TO GIVE IV MEDICATION AND PATIENT STATES SHE NEEDS NOTHING. AT THIS TIME THIS RN ASKS LUZ MARIA MILLER TO REMOVE IV AND THIS RN GETTING DISCHARGE PACKET READY. PATIENT REFUSES AT 1300 TO BE WHEELED IN WHEELCHAIR AND THIS RN WALKS PATIENTS TO EXIT. PATIENT REQUESTS THAT THIS RN NOT FOLLOW HER OUT FACILITY DOOR THAT SHE WILL BE ALRIGHT.
--- NOTE | 2018-11-03 14:54 | Anesthesia-General Post-Op ---
General Patient Condition Mental Status/LOC: Same as Preop Cardiovascular: Satisfactory Nausea/Vomiting: Absent Respiratory: Satisfactory Pain: Controlled Complications: Absent Post Op Complications Complications None Follow Up Care/Instructions Patient Instructions None needed. Anesthesia/Patient Condition Patient Condition Patient was seen after the procedure and she was doing well, no complaints, stable vital signs, no apparent adverse anesthesia problems. Nursing notes prior to discharge seen and patient was discharged to home without complication. LYRIC LALA DO Nov 03, 2018 14:54
== END 2018-11-03 13:05 | disposition home or self-care (01) ==
LOC: SDC 08:46
PROVIDERS: ATTEND Obstetrics & Gynecology
DX: N80.9 Endometriosis, unspecified (principal); K21.9 Gastro-esophageal reflux disease without esophagitis; J45.909 Unspecified asthma, uncomplicated; K59.00 Constipation, unspecified; F41.1 Generalized anxiety disorder; G43.909 Migraine, unspecified, not intractable, without status migrainosus; F33.1 Major depressive disorder, recurrent, moderate; Z88.0 Allergy status to penicillin; Z88.8 Allergy status to other drugs, medicaments and biological substances; Z87.891 Personal history of nicotine dependence; Z79.899 Other long term (current) drug therapy; Z82.49 Family history of ischemic heart disease and other diseases of the circulatory system; Z83.3 Family history of diabetes mellitus; Z81.8 Family history of other mental and behavioral disorders; Z53.8 Procedure and treatment not carried out for other reasons
CPT/HCPCS: 36415; 84703; 85025; 87081

== ENCOUNTER 2018-12-28 12:53 | Emergency (ER) | payer MEDICARE, MEDICAID ==
[~2018-12-28] VITALS: Ht 162 cm; Wt 51.7 kg
[~2018-12-28 12:53] MED LIST changes: +ACET-77 PO; +IBUP-844 PO; +OXC5T PO
[2018-12-28 13:34] LABS: BILIRUBIN,URINE NEGATIVE (NEGATIVE); CLARITY,URINE SLIGHTLY CLOUDY; COLOR,URINE YELLOW; GLUCOSE, URINE (UA) NEGATIVE (NEGATIVE); KETONES,URINE NEGATIVE (NEGATIVE); LEUKOCYTE ESTERASE ,URINE 1+ (NEGATIVE); NITRITE,URINE NEGATIVE (NEGATIVE); PH,URINE 6.5 (5-9); PROTEIN,URINE 1+ (NEGATIVE)
[2018-12-28 13:43] LABS: BACTERIA,URINE NEGATIVE /HPF; RBC,URINE TNTC /HPF
--- NOTE | 2018-12-28 13:45 | ED GU-Female ---
General Chief Complaint: Abdominal/GI Problems Stated Complaint: CRAMPS;LOWER BACK PAIN Nursing Triage Note: Pt ambulates to triage with C/O lower left abd pain that radiates to left flank x 3 days that has gotten worse today. Pt states she's been alternating ibuprofen and tylenol for the pain but is unrelieved. Pt has a Hx of UTI's and states this pain is worse. Pt reports having interstitial cystitis as well as endometriosis. Pt is concerned about her IUD possibly moving as well. Nursing Sepsis Screen: No Definite Risk Source: patient Exam Limitations: no limitations (ASHLEY ARELLANO STUDENT) History of Present Illness Date Seen by Provider: Dec 28, 2018 Time Seen by Provider: 13:30 Initial Comments Patient presents to the ED today complaining of two days of lower abdominal and pelvic pain, specifically in the left adnexa that radiates to her back. She has also been complaining of vaginal bleeding, but does not believe to be on her period. She is afebrile but tachycardic. Nothing seems to alleviate the pain but excessive movement makes the pain worse. She has no history of STI's and is monogamous with one partner. Timing/Duration: constant, other (2 days) Severity/Quality: severe, cramping, sharp Location: LLQ, vaginal, other Radiation: back, vaginal Activities at Onset: none Prior Genitourinary Problems: similar symptoms (Patient recently had laparoscopic surgery for endometriosis; also has interstitial cystitis) Sexual [place] History: less than 2 months ago, single partner Modifying Factors: Improves With Other (Nothing seems to relieve symptoms) Associated Symptoms: lower back pain (ASHLEY ARELLANO STUDENT) Initial Comments She has a long-standing history of endometriosis and had laparoscopic surgery by Dr. Gonzalez in October 2018. She has an IUD and is concerned that it may have become displaced, she denies being able to locate the string. She tried to have intercourse last evening and it was extremely painful. No history of PID. She has been alternating Tylenol and ibuprofen to the weekend but she has not taken any since 1200 yesterday. (STACEY WU) Allergies and Home Medications Allergies Coded Allergies: gabapentin (Verified Allergy, Severe, WEAKNESS, 08/13/18) sumatriptan (Unverified Allergy, Severe, ANAPHYLAXIS, 09/20/13) Penicillins (Unverified Allergy, Mild, HIVES, 08/13/18) sumatriptan succinate (Verified Adverse Reaction, Mild, 04/01/11) Home Medications Acetaminophen 500 Mg Tablet, 1,000 MG PO Q8H PRN for PAIN-MILD Prescribed by: TALA GONZALEZ on 11/03/18 1148 Alprazolam 1 Mg Tablet, 1 MG PO DAILY, (Reported) Duloxetine HCl 60 Mg Capsule.dr, 60 MG PO DAILY, (Reported) Elagolix Sodium 200 Mg Tablet, 200 MG PO BID, (Reported) Erenumab-Aooe 70 Mg/1 Ml Auto.injct, 70 MG IM monthly, (Reported) Ibuprofen 600 Mg Tablet, 600 MG PO Q6HR Prescribed by: TALA GONZALEZ on 11/03/18 1148 Omeprazole 20 Mg Capsule.dr, 20 MG PO DAILY, (Reported) Oxycodone Hcl 5 Mg Tab, 5 MG PO Q4H PRN for PAIN-SEVERE Prescribed by: TALA GONZALEZ on 11/03/18 1148 Patient Home Medication List Home Medication List Reviewed: Yes (STACEY WU) Review of Systems Review of Systems Constitutional: no symptoms reported EENTM: no symptoms reported Respiratory: no symptoms reported Cardiovascular: no symptoms reported Gastrointestinal: LLQ, abdominal pain Genitourinary: no symptoms reported Musculoskeletal: no symptoms reported Skin: no symptoms reported Psychiatric/Neurological: No Symptoms Reported Endocrine: No Symptoms Reported Hematologic/Lymphatic: No Symptoms Reported (ASHLEY ARELLANO STUDENT) All Other Systemes Reviewed Negative Unless Noted: Yes (STACEY WU) Past Qdfvldq-Vibipq-Tpfrhq Hx Past Med/Social Hx: Reviewed Nursing Past Med/Soc Hx (STACEY WU) Patient Social History Alcohol Use: Denies Use Recreational Drug Use: No Smoking Status: Current Everyday Smoker Type Used: Cigarettes 2nd Hand Smoke Exposure: Yes Recent Foreign Travel: No Contact w/Someone Who Travel: No Recent Infectious Disease Expo: No Recent Hopitalizations: No Physical Abuse: No Sexual Abuse: No Mistreated: No Fear: No (ASHLEY ARELLANO STUDENT) Immunizations Up To Date Tetanus Booster (TDap): Unknown PED Vaccines UTD: Yes Date of Influenza Vaccine: Jan 08, 2013 (ASHLEY ARELLANO STUDENT) Seasonal Allergies Seasonal Allergies: Yes (ASHLEY ARELLANO STUDENT) Past Medical History Surgeries: Yes (SINUS, EXPL LAP, EAR TUBES, perineal tear repair, BLADDER) Abdominal, Appendectomy, Bladder Surgery, Ear Surgery, Eye Surgery Respiratory: Yes (08/10/18) Pneumonia Cardiac: No Neurological: Yes Headaches /Migraines 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 Disorders: No Female 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 Disorders: Denies, Menstrual Problems, 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 Sexually Transmitted Disease: No HIV/AIDS: No Genitourinary: Yes (interstitial cystitis) Bladder Infection Gastrointestinal: Yes Gastroesophageal Reflux Musculoskeletal: No Endocrine: No HEENT: Yes (GLASSES/CONTACTS) Loss of Vision: Bilateral Hearing Impairment: Denies Cancer: No Psychosocial: Yes Sleep Difficulties, Anxiety, PTSD, Depression Integumentary: No Blood Disorders: No Adverse Reaction/Blood Tranf: No (N/A) (ASHLEY ARELLANO STUDENT) Family Medical History FH: bipolar disorder 19 FATHER 19 MOTHER No Pertinent Family Hx (ASHLEY ARELLANO STUDENT) Physical Exam Vital Signs Vital Signs - First Documented 12/28/18 13:10 Temp 36.1 Pulse 117 Resp 19 B/P (MAP) 117/72 (87) Pulse Ox 98 O2 Delivery Room Air (STACEY WU) Vital Signs Capillary Refill : Less Than 3 Seconds (ASHLEY ARELLANO STUDENT) Height, Weight, BMI Height: 5'4.00" Weight: 111lbs. 2.0oz. 50.467527bo; 19.00 BMI Method:Stated General Appearance: moderate distress HEENT: PERRL/EOMI, pharynx normal Neck: non-tender, supple, normal inspection Cardiovascular: normal peripheral pulses, no edema, no gallop, no JVD, no murmur, tachycardia Respiratory: chest non-tender, normal breath sounds, no respiratory distress, no accessory muscle use Gastrointestinal: normal bowel sounds, soft, no organomegaly, no pulsatile mass, guarding, tenderness Genital/Rectal: tenderness Pelvic: normal external exam, tender w/ cervical motion, tender adnexa, vaginal bleeding Back: normal inspection, no CVA tenderness, no vertebral tenderness Extremities: non-tender, normal inspection, no pedal edema, no calf tenderness, normal capillary refill 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: alert, normal mood/affect, oriented x 3 Skin: normal color, warm/dry Lymphatic: no adenopathy (ASHLEY ARELLANO STUDENT) General Appearance: WD/WN Pelvic: No discharge, No mass; tender w/ cervical motion (trace), tender adnexa (Left) (STACEY WU) Progress/Results/Core Measures Suspected Sepsis Recent Fever Within 48 Hours: No Infection Criteria Present: None New/Unexplained Altered Menta: No Sepsis Screen: No Definite Risk SIRS Temperature: Pulse: 117 Respiratory Rate: 19 Blood Pressure 117 /72 Mean: 87 (ASHLEY ARELLANO STUDENT) Results/Orders Lab Results Laboratory Tests Test 12/28/18 11:30 12/28/18 13:30 12/28/18 14:45 Range/Units Urine Color YELLOW Urine Clarity SLIGHTLY CLOUDY Urine pH 6.5 5-9 Urine Specific [place] 1.010 L 1.016-1.022 Urine Protein 1+ H NEGATIVE Urine Glucose (UA) NEGATIVE NEGATIVE Urine Ketones NEGATIVE NEGATIVE Urine Nitrite NEGATIVE NEGATIVE Urine Bilirubin NEGATIVE NEGATIVE Urine Urobilinogen NORMAL NORMAL MG/DL Urine Leukocyte Esterase 1+ H NEGATIVE Urine RBC (Auto) 5+ H NEGATIVE Urine RBC TNTC H /HPF Urine WBC NONE /HPF Urine Squamous Epithelial Cells 5-10 /HPF Urine Crystals NONE /LPF Urine Bacteria NEGATIVE /HPF Urine Casts NONE /LPF Urine Mucus NEGATIVE /LPF Urine Culture Indicated NO Urine Opiates Screen NEGATIVE NEGATIVE Urine Oxycodone Screen NEGATIVE NEGATIVE Urine Methadone Screen NEGATIVE NEGATIVE Urine Propoxyphene Screen NEGATIVE NEGATIVE Urine Barbiturates Screen NEGATIVE NEGATIVE Ur Tricyclic Antidepressants Screen NEGATIVE NEGATIVE Urine Phencyclidine Screen NEGATIVE NEGATIVE Urine Amphetamines Screen NEGATIVE NEGATIVE Urine Methamphetamines Screen NEGATIVE NEGATIVE Urine Benzodiazepines Screen NEGATIVE NEGATIVE Urine Cocaine Screen NEGATIVE NEGATIVE Urine Cannabinoids Screen POSITIVE H NEGATIVE (STACEY WU) Micro Results Microbiology 12/28/18 Wet Prep - Final, Complete (STACEY WU) My Orders Orders - STACEY WU Urine Bedside (12/28/18 13:28) Ua Culture If Indicated (12/28/18 13:28) Drug Screen Stat (Urine) (12/28/18 13:37) Us Non Ob Transvaginal [id number] (12/28/18 13:48) Neisseria Gonorrhea Swab (12/28/18 14:52) Chlam Dna Probe (12/28/18 14:52) Wet Prep (12/28/18 14:52) Ketorolac Injection (Toradol Injection) (12/28/18 15:45) (STACEY WU) Medications Given in ED Current Medications Medications Dose Ordered Sig/Janine Route Start Time Stop Time Status Last Admin Dose Admin Ketorolac Tromethamine 30 mg ONCE ONCE IVP 12/28/18 15:45 12/28/18 15:46 DC 12/28/18 15:46 30 MG (STACEY WU) Vital Signs/I&O 12/28/18 12/28/18 13:10 15:49 Temp 36.1 36.4 Pulse 117 79 Resp 19 16 B/P (MAP) 117/72 (87) 114/75 (87) Pulse Ox 98 99 O2 Delivery Room Air Room Air (STACEY WU) Vital Signs/I&O Capillary Refill : Less Than 3 Seconds (ASHLEY ARELLANO PA STUDENT) Blood Pressure Mean: 87 Progress Note : Time: 13:30 Progress Note Patient seen and evaluated by the PA student in this provider. Will obtain labs and reevaluate. 1430 US not available, discussed that we will get Pelvic exam completed, then get US. Patient agreeable. Nonspecific findings on Pelvic. 1450 Patient to US. 1515 Toradol 30 mg IV. 1530 US results reviewed with the patient. Reassured that the IUD is still in correct location. She is requesting D/C to go get kids from school. On her cell phone and moving around in the bed, with no signs of pain. 1545 discharge instructions and return precautions reviewed with the patient. Follow-up appointment made with Dr. Gonzalez. (STACEY UW) Diagnostic Imaging Diagonstic Imaging: Ultrasound Plain Films/CT/US/NM/MRI: pelvis Comments NAME: HENRI VERDUZCO S MED REC#: [id number] PHYSICIAN: STACEY WU CC: URBA HUA MD; STACEY WU Page 2 of 2 RADIOLOGY REPORT [facility]. [place], [place] CC: RUBA HUA MD; STACEY WU Page 1 of 1 RADIOLOGY REPORT NAME: HENRI VERDUZCO S MED REC#: [id number] PT STATUS: DEP ER : 1990 PHYSICIAN: STACEY WU ADMIT DATE: 12/28/18/ER Signed Date of Exam: 12/28/18 US NON OB TRANSVAGINAL [id number] PROCEDURE: US NON-OB transvaginal. TECHNIQUE: Multiple real-time grayscale images were obtained of the pelvis in various projections endovaginally. INDICATION: Left-sided pelvic pain. In addition, patient's IUDs string is not visualized. FINDINGS: Uterus measures 8.1 x 4.9 x 3.7 cm. Endometrium is 3 mm in thickness. No myometrial mass is identified. The IUD appears to be appropriately centered in the endometrial canal. Right ovary measures 4.4 x 4.2 x 2.7 cm and the left ovary measures 2.9 x 2.7 x 2.1 cm. The right ovary does contain a small complex cyst approximately 15 mm x 14 mm in size. A simple-appearing cyst is also noted adjacent to this measuring 2.7 x 1.9 x 2.4 cm in size. There is blood flow to the right ovary. Left ovary is unremarkable and contains small follicles. Left ovary demonstrates blood flow. There is some free fluid in the right adnexa adjacent to right ovary. IMPRESSION: 1. The IUD is appropriately centered in the endometrial canal. 2. Right ovarian cysts, as described with some adjacent free fluid. The study is otherwise unremarkable. Dictated by: Dictated on workstation # [id number] Dict: 12/28/18 1548 Trans: 12/28/18 1559 Interpreted by: RUBA HUA MD Electronically signed by: RUBA HUA MD 12/28/18 1559 (STACEY WU) Departure Impression Primary Impression: Ovarian cyst Qualified Codes: N83.201 - Unspecified ovarian cyst, right side Additional Impression: Endometriosis Disposition: 01 HOME, SELF-CARE Condition: Improved Departure-Patient Inst. Decision time for Depature: 15:30 (STACEY WU) Referrals: WISAM SHAH DO (PCP/Family) Primary Care Physician Patient Instructions: Ovarian Cyst (DC) Add. Discharge Instructions: Alternate Ibuprofen 600 mg and Tylenol 650 mg every 4 hours. Rest, warm/moist compresses to lower abdomen. See Dr. Gonzalez on Dec 31 at 11:00 am. Return to Emergency Dept for new, urgent health care needs. All discharge instructions reviewed with patient and/or family. Voiced understanding. Patient's assessment and documentation by STAN student reviewed and verified by this Provider. (STACEY WU) Copy Copies To 1: TALA GONZALEZ BRODIE PA STUDENT Dec 28, 2018 13:45 STACEY WU Dec 28, 2018 15:39
[2018-12-28 13:53] LABS: AMPHETAMINE SCREEN, URINE NEGATIVE (NEGATIVE); BARBITURATE SCREEN URINE NEGATIVE (NEGATIVE); BENZODIAZEPINES SCREEN URINE NEGATIVE (NEGATIVE); CANNABINOID SCREEN, URINE POSITIVE (NEGATIVE); COCAINE SCREEN URINE NEGATIVE (NEGATIVE); METHADONE STAT NEGATIVE (NEGATIVE); METHAMPHETAMINE SCREEN URINE S NEGATIVE (NEGATIVE); OPIATE SCREEN URINE NEGATIVE (NEGATIVE); OXYCODONE STAT NEGATIVE (NEGATIVE); PROPOXYPHENE STAT NEGATIVE (NEGATIVE); TRICYCLIC ANTIDEPRESSANTS SCRE NEGATIVE (NEGATIVE)
--- NOTE | 2018-12-28 14:45 | NUR ---
Assisted provider with pelvic exam. Swabs collected @ 8093.
[2018-12-28] MEDS ORDERED: KETOROLAC 30 MG/ML VIAL IVP ONE (15:45)
[2018-12-28 15:49] VITALS: BP 114/75
--- NOTE | 2018-12-28 15:59 | Diagnostic Imaging Report ---
PROCEDURE: US NON-OB transvaginal. TECHNIQUE: Multiple real-time grayscale images were obtained of the pelvis in various projections endovaginally. INDICATION: Left-sided pelvic pain. In addition, patient's IUDs string is not visualized. FINDINGS: Uterus measures 8.1 x 4.9 x 3.7 cm. Endometrium is 3 mm in thickness. No myometrial mass is identified. The IUD appears to be appropriately centered in the endometrial canal. Right ovary measures 4.4 x 4.2 x 2.7 cm and the left ovary measures 2.9 x 2.7 x 2.1 cm. The right ovary does contain a small complex cyst approximately 15 mm x 14 mm in size. A simple-appearing cyst is also noted adjacent to this measuring 2.7 x 1.9 x 2.4 cm in size. There is blood flow to the right ovary. Left ovary is unremarkable and contains small follicles. Left ovary demonstrates blood flow. There is some free fluid in the right adnexa adjacent to right ovary. IMPRESSION: 1. The IUD is appropriately centered in the endometrial canal. 2. Right ovarian cysts, as described with some adjacent free fluid. The study is otherwise unremarkable. Dictated by: Dictated on workstation # [id number]
== END 2018-12-28 15:50 | disposition home or self-care (01) ==
LOC: EDUNIT# 12:53 → ER 12:54
DX: N83.201 Unspecified ovarian cyst, right side (principal); N80.9 Endometriosis, unspecified; G43.909 Migraine, unspecified, not intractable, without status migrainosus; K21.9 Gastro-esophageal reflux disease without esophagitis; F43.10 Post-traumatic stress disorder, unspecified; F41.9 Anxiety disorder, unspecified; F32.9 Major depressive disorder, single episode, unspecified; F17.210 Nicotine dependence, cigarettes, uncomplicated; Z87.440 Personal history of urinary (tract) infections; Z88.0 Allergy status to penicillin; Z90.49 Acquired absence of other specified parts of digestive tract; Z88.8 Allergy status to other drugs, medicaments and biological substances
CPT/HCPCS: 36415; 76830; 80306; 81000; 84703; 87210; 87491; 87591

== ENCOUNTER 2019-03-13 18:35 | Emergency (ER) | payer MEDICARE, MEDICAID ==
[~2019-03-13] VITALS: Ht 162.5 cm; Wt 52.2 kg
[2019-03-13] MEDS ORDERED: KETOROLAC 60 MG/2 ML VIAL IM ONE (19:15)
[2019-03-13] MEDS ORDERED: diphenhydrAMINE 50 MG/ML INJ (BENADRYL) IM ONE (19:15)
[2019-03-13] MEDS ORDERED: PROCHLORPERAZINE 10 MG/2ML INJ (COMPAZINE) IM ONE (19:15)
--- NOTE | 2019-03-13 19:22 | ED Headache ---
General Chief Complaint: Head/Cervical Problems Stated Complaint: MIGRAINE Nursing Triage Note: PT TO ED W/ C/O MIGRAINE ONSET X3 DAYS, WORSE TODAY. REPORTS HAS BEEN TAKING EXCEDRINE ET IBUPROFEN BUT DENIES IMPROVEMENT. Nursing Sepsis Screen: No Definite Risk Source: patient Exam Limitations: no limitations History of Present Illness Date Seen by Provider: Mar 13, 2019 Time Seen by Provider: 19:20 Initial Comments Headache 3 days worse today with nausea but no vomiting, long-standing history of headaches/migraines and this is similar. Started mild and has gotten progressively worse as all of her migraines do. Timing/Duration: other Severity/Quality: moderate Location: global Associated Symptoms: nausea/vomiting Allergies and Home Medications Allergies Coded Allergies: gabapentin (Verified Allergy, Severe, WEAKNESS, 08/13/18) sumatriptan (Unverified Allergy, Severe, ANAPHYLAXIS, 09/20/13) Penicillins (Unverified Allergy, Mild, HIVES, 08/13/18) sumatriptan succinate (Verified Adverse Reaction, Mild, 04/01/11) Home Medications Acetaminophen 500 Mg Tablet, 1,000 MG PO Q8H PRN for PAIN-MILD Prescribed by: TALA GONZALEZ on 11/03/18 1148 Alprazolam 1 Mg Tablet, 1 MG PO DAILY, (Reported) Duloxetine HCl 60 Mg Capsule.dr, 60 MG PO DAILY, (Reported) Elagolix Sodium 200 Mg Tablet, 200 MG PO BID, (Reported) Erenumab-Aooe 70 Mg/1 Ml Auto.injct, 70 MG IM monthly, (Reported) Ibuprofen 600 Mg Tablet, 600 MG PO Q6HR Prescribed by: TALA GONZALEZ on 11/03/18 1148 Omeprazole 20 Mg Capsule.dr, 20 MG PO DAILY, (Reported) Oxycodone Hcl 5 Mg Tab, 5 MG PO Q4H PRN for PAIN-SEVERE Prescribed by: TALA GONZALEZ on 11/03/18 1148 Patient Home Medication List Home Medication List Reviewed: Yes Review of Systems Review of Systems Constitutional: see HPI Eyes: No Symptoms Reported Ears, Nose, Mouth, Throat: no symptoms reported Respiratory: no symptoms reported Cardiovascular: no symptoms reported Gastrointestinal: nausea Genitourinary: no symptoms reported Musculoskeletal: no symptoms reported Skin: no symptoms reported Psychiatric/Neurological: See HPI, Headache Past Dggihpe-Yhczil-Ndwchr Hx Patient Social History Type Used: Cigarettes 2nd Hand Smoke Exposure: Yes Recent Foreign Travel: No Contact w/Someone Who Travel: No Recent Infectious Disease Expo: No Recent Hopitalizations: No Immunizations Up To Date Tetanus Booster (TDap): Unknown PED Vaccines UTD: Yes Date of Influenza Vaccine: Jan 08, 2013 Seasonal Allergies Seasonal Allergies: Yes Past Medical History Surgeries: Yes (SINUS, EXPL LAP, EAR TUBES, perineal tear repair, BLADDER) Abdominal, Appendectomy, Bladder Surgery, Ear Surgery, Eye Surgery Respiratory: Yes (08/10/18) Pneumonia Cardiac: No Neurological: Yes Headaches /Migraines 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 Disorders: No Female 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 Disorders: Denies, Menstrual Problems, 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 Sexually Transmitted Disease: No HIV/AIDS: No Genitourinary: Yes (interstitial cystitis) Bladder Infection Gastrointestinal: Yes Gastroesophageal Reflux Musculoskeletal: No Endocrine: No HEENT: Yes (GLASSES/CONTACTS) Loss of Vision: Bilateral Hearing Impairment: Denies Cancer: No Psychosocial: Yes Sleep Difficulties, Anxiety, PTSD, Depression Integumentary: No Blood Disorders: No Adverse Reaction/Blood Tranf: No (N/A) Family Medical History FH: bipolar disorder 19 FATHER 19 MOTHER No Pertinent Family Hx Physical Exam Vital Signs Vital Signs - First Documented 03/13/19 19:05 Temp 36.3 Pulse 73 Resp 18 B/P (MAP) 121/91 (101) Pulse Ox 100 O2 Delivery Room Air Capillary Refill : Less Than 3 Seconds Height, Weight, BMI Height: 5'4.00" Weight: 111lbs. 2.0oz. 50.924534ef; 19.00 BMI Method:Stated General Appearance: WD/WN, no apparent distress Neck: non-tender, full range of motion Respiratory: no respiratory distress, no accessory muscle use Extremities: normal range of motion, non-tender Psychiatric: alert, oriented x 3 Cra[place] Nerves: normal hearing, normal speech, PERRL Motor/Sensory: no motor deficit, no sensory deficit Skin: normal color, warm/dry Progress/Results/Core Measures Results/Orders My Orders Orders - JUAN MIGUEL JIMENEZ APRN Ketorolac Injection (Toradol Injection) (03/13/19 19:15) Prochlorperazine Injection (Compazine In (03/13/19 19:15) Diphenhydramine Injection (Benadryl Inje (03/13/19 19:15) Vital Signs/I&O 03/13/19 19:05 Temp 36.3 Pulse 73 Resp 18 B/P (MAP) 121/91 (101) Pulse Ox 100 O2 Delivery Room Air Blood Pressure Mean: 101 Departure Impression Primary Impression: Chronic headaches Qualified Codes: R51 - Headache Disposition: 01 HOME, SELF-CARE Condition: Improved Departure-Patient Inst. Decision time for Depature: 19:21 Referrals: BEBO HERNANDEZ MD (PCP/Family) Primary Care Physician Patient Instructions: Migraine Headache (DC) JUAN MIGUEL JIMENEZ APRN Mar 13, 2019 19:21
[2019-03-13 20:20] VITALS: BP 122/90
== END 2019-03-13 20:21 | disposition home or self-care (01) ==
LOC: EDUNIT# 18:35 → ER 18:36
DX: R51 Headache (principal); K21.9 Gastro-esophageal reflux disease without esophagitis; F41.9 Anxiety disorder, unspecified; F43.10 Post-traumatic stress disorder, unspecified; F32.9 Major depressive disorder, single episode, unspecified; Z88.0 Allergy status to penicillin; Z88.8 Allergy status to other drugs, medicaments and biological substances; Z77.22 Contact with and (suspected) exposure to environmental tobacco smoke (acute) (chronic); Z90.49 Acquired absence of other specified parts of digestive tract; Z86.69 Personal history of other diseases of the nervous system and sense organs
CPT/HCPCS: 96372; 99284

== ENCOUNTER → 2019-03-18 | Outpatient (CLI) | payer MEDICARE, MEDICAID ==
--- NOTE | 2019-03-18 14:54 | Diagnostic Imaging Report ---
PROCEDURE: US Non-ob pelvis comp/trans. TECHNIQUE: Multiple realtime grayscale images were obtained of the pelvis in various projections endovaginally. Transabdominal imaging was also performed. INDICATION: IUD placement, check. FINDINGS: Uterus is anteverted measuring 7.5 x 2.8 x 5.1 cm. Endometrium is 3 mm in thickness. IUD appears to be appropriately centered in the endometrial canal. No myometrial mass is detected. Right ovary measures 3.7 x 1.9 x 2.5 cm and the left ovary measures 3.2 x 1.5 x 2.2 cm. Both ovaries contain small follicles. There is blood flow to both ovaries. No adnexal mass or free fluid is seen. IMPRESSION: 1. The IUD appears to be appropriately centered in the endometrial canal. 2. No significant abnormality is detected. Dictated by: Dictated on workstation # [id number]
== END ==
LOC: RAD 13:38
PROVIDERS: ATTEND Obstetrics & Gynecology
DX: Z30.431 Encounter for routine checking of intrauterine contraceptive device (principal); T83.32XA Displacement of intrauterine contraceptive device, initial encounter
CPT/HCPCS: 76830; 76856

== ENCOUNTER 2019-08-08 15:38 | Emergency (ER) | payer MEDICARE, MEDICAID ==
[~2019-08-08] VITALS: Ht 162 cm; Wt 52.6 kg
[~2019-08-08 15:38] MED LIST changes: -ACET-77 PO; +ACET-78 PO; -OMEP20CA13 PO; +OMEP20CA18 PO
--- OUTSIDE RECORDS SUMMARY | 2019-08-08 15:44 | XMS REPORT ---
Author Author [employer] clinical medical assistant [employer] [facility] [employer] [facility] [employer] Address [address] [address] Care Team Providers Care Director Patient Accounting Name Role Phone GAUDENCIO RAJAN Unavailable NO, LOCAL PHYSICIAN Unavailable Unavailable NO, LOCAL PHYSICIAN Unavailable Unavailable NO, LOCAL PHYSICIAN Unavailable Unavailable GAUDENCIO RAJAN Unavailable GAUDENCIO RAJAN Unavailable UNKNOWN Unavailable Unavailable JUAN MIGUEL JIMENEZ APRN Unavailable Unavailable DONTE YUN, CHRISTOPHE Madsen Unavailable Unavailable BILLY MIRELES MD Unavailable Unavailable FADI DAVE MD Unavailable Unavailable SIMON RAMIREZ MD Unavailable Unavailable JENNIFER ROSAS Unavailable Unavailable JOCELYNE VILLALOBOS MD Unavailable Unavailable GONZALEZ , TALA C Unavailable Unavailable GONZALEZ DO, TALA C Unavailable Unavailable KAIT , YE K Unavailable Unavailable LUIS A ARRIOLA MD Unavailable Unavailable NO, LOCAL PHYSICIAN Unavailable Unavailable IONA SWEENEY MD Unavailable Unavailable STACEY WU Unavailable Unavailable MAY BRENNAN Unavailable WISAM SHAH Unavailable WISAM SHAH PCP Migration, Doctor Unavailable Unavailable Migration, Doctor Unavailable Unavailable ANNY CAMPOS Unavailable Unavailable BROWN, JONATHAN Unavailable Unavailable BROWN, JONATHAN Unavailable Unavailable Migration, Doctor Unavailable Unavailable URIEL BENITEZ Unavailable WISAM SHAH DO Unavailable Unavailable LISA QUINTANA TALA C Unavailable Unavailable WISAM SHAH PCP PANCHITO ANTOINE Unavailable Unavailable BILLY MIRELES MD Unavailable Unavailable STACEY WU Unavailable Unavailable FADI DAVE MD Unavailable Unavailable KAITJoaquina QUINTANA YE K Unavailable Unavailable JUAN MIGUEL JIMENEZ APRN Unavailable Unavailable Morgan Tripathi Unavailable Unavailable SYL BENITEZNDA Unavailable Unavailable Unavailable Unavailable Unavailable Unavailable Unavailable Unavailable Unavailable Unavailable Unavailable Allergies Normalized Allergy Reported Date of Reaction(s) Care Provider Facility Allergy Type classification allergen Allergy Onset Drug Allergy Anti-Epileptic gabapentin 08-13-2018 - Cale [facility] Via (22 sources.) Agents Translations: Gabapentin, Suzy Translations: [ Gabapentin] [facility] - [ Allergy to [place] Substance] (41089) Propensity to Unclassified Gabipentin 11-05-2017 - Unknown JESSICA BRENNAN [facility] adverse [address] [facility] reactions (1 of [facility] source.) [place] ([address]) Drug Allergy naproxen / naproxen / 06-21-2014 - Unknown, MAY TORREZ [facility] (2 sources.) SUMAtriptan SUMAtriptan Unknown [address] [facility] Translations: of [facility] [ Treximet, [place] ([address]) Naproxen sodium 500 MG / Sumatriptan 85 MG Oral Tablet [Treximet], Treximet] Medications Current Medications Medication Ingredient Drug Dose Dates Status Sig Sig Care Class(es) (Normalized) (Original) Provid er no hydrocortis Corticoster Active no no n o information one oid information information name (1 source.) no IUD's no Active no no no information information information information name (1 source.) 1 ml medroxyPROG Progestin 150 10-14-19 Active inject 150 D epo-Provera no medroxyPROG ESTERone mg/mL 12 mg by 150 mg/mL name ESTERone Translation intramuscula inject 150 acetate 150 s: [ r injection mg by mg/ml Depo-[facility] [employer] every three intramuscula injection a 150 months r route (1 source.) mg/mL] every 3 months Oct, Active pentosan pentosan Glycosamino 100 mg Active no no no polysulfate polysulfate glycan information information name 100 mg oral Translation capsule (1 s: [ source.) Elmiron 100 MG] {21 {21 no Active no no no (Ethinyl (Ethinyl information information information name Estradiol Estradiol 0.035 MG / 0.035 MG / norgestimat norgestimat e 0.25 MG e 0.25 MG Oral Oral Tablet) / 7 Tablet) / 7 (Inert (Inert Ingredients Ingredients 1 MG Oral 1 MG Oral Tablet) } Tablet) } Pack Pack [Previfem [Previfem 28 Day] (1 28 Day] source.) Translation s: [ Previfem 0.25-35 MG-MCG] Completed/Discontinued Medications Medication Ingredient Drug Dose Dates Status Sig Sig Care Class(es) (Normalized) (Original) Provid er 1 ml 1 ML no Complete no Erenumab-Aoo (no erenumab-ao erenumab-ao information d information e ( movig phone) oe 70 mg/ml oe 70 MG/ML Autoinjector auto-inject Auto-Inject ) 70 Mg/1 Ml or (2 or Auto.injct sources.) [Aimovig] NOT APPLICABLE acetaminoph Acetaminoph no 1000 11-04-19 Complete no A cetaminophe no en 500 mg en information mg 19 - d information n name oral tablet 11-04-19 Discontinued (2 19 - 1000 ORAL sources.) 11-04-19 Every 8HRS 19 as needed for Pain-Mild 100 November 03, 2018 11:48am (One-Time) no Acid Reflux no 08-31-19 Complete no Acid Reflux n o information Med information 11 d information Med name (1 source.) Discontinued NOT APPLICABLE Daily August 30, 2010 no Albuterol no 6.7 g 07-08-19 Complete take 6.7 g Albu terol Luis A N information Sulfate information 16 - d by Sulfate nult (4 (Proventil 08-08-19 inhalation (Proventil y (no sources.) Hfa) 6.7 Gm 16 every four Hfa) 6.7 Gm phone) Hfa.aer.ad, hours as Hfa.aer.ad, 6.7 Gm needed for 6.7 Gm Respiratory wheezing, Respiratory (Inhalation then take (Inhalation) ) 6.7 g by Every 4HRS inhalation as needed as needed for Wheezing for wheezing 07/08/15 Discontinued no Allergy no 08-03-19 Complete no Allergy no information Shots information 12 d information Shots name (2 Discontinued sources.) 1 INTRAMUSCULA R Weekly August 03, 2011 02-20-2014 Completed no no no name inform informat ation ion amoxicillin Amoxicillin Penicillin- 04-12-19 Complete no [place] xicillin no 500 mg oral class 19 - d information Discontinued name capsule (5 Antibacteri 04-12-19 500 ORAL sources.) al 19 Twice A Day 20 April 12, 2018 5:32pm April 12, 2018 500 mg 04-12-2018 Completed no Amoxicil Panchito - inform cesar 500 [place] 04-12-2018 ation Mg (no Capsule, phone) 500 Mg Oral Twice A Day 04/12/18 Disconti nued no Bcp no 08-31-19 Complete no Bcp no information information 11 d information Disconti nued name (3 NOT sources.) APPLICABLE Daily August 30, 2010 01-11-2015 Completed no Bcp no name inform Disconti ation nued NOT APPLICAB LE Daily January 11, 2015 09-20-2013 Completed no Bcp no name inform Disconti ation nued NOT APPLICAB LE September 20, 2013 onabotulinu Botulinum Acetylcholi 01-12-20 Complete no [place] tulinum no mtoxina 200 Toxin Type ne Release 15 d information toxi na name unt A Inhibitor Discontinued injection 200 (8 INTRAVENOUS sources.) As Directed January 11, 2015 200 [IU] 01-11-2015 Completed no Onabotul (no inform inumtoxi phone) ation na (Botox) 200 Unit Vial, 200 Unit Intraven ous As Directed Disconti nued no Butalb/Acet no 08-03-19 Complete no Butalb/Aceta no information aminophen/C information 12 - d information mi nophen/Caf name (1 source.) affeine 09-07-19 feine 12 Discontinued 1 ORAL Q4hr Prn August 03, 2011 7:11pm September 07, 2011 clindamycin Clindamycin Lincosamide 300 mg 04-12-19 Complete no Clindamycin no 300 mg oral Antibacteri 19 - d information Hcl name capsule (5 al 10-29-19 Discontinued sources.) 19 300 ORAL Every 6 Hours 28 7 April 12, 2018 5:37pm October 28, 2018 elagolix elagolix no 200 mg no no Elagolix no 200 mg oral information informat information Sodium name tablet (3 ion Active 200 sources.) ORAL Twice A Day 1 ml erenumab no 70 mg no no Erenumab-Aoo no erenumab-ao information informat information e Active 70 na me oe 70 mg/ml ion INTRAMUSCULA auto-inject R Monthly or (5 sources.) Norgestimat Ethinyl Progestin, 10-29-19 Complete no [place] mate no e-Ethinyl Estradiol / Estrogen 19 d information -Ethiny l name Estradiol norgestimat Estradiol (7 e Discontinued sources.) NOT APPLICABLE October 28, 2018 10-28-2018 Completed no [place] (no inform mate-Eth phone) ation inyl Estradio l (Prevife m Tablet) 1 Each Tablet, Not Applicab le Disconti nued no Melatonin / no 07-19-19 Complete no Melatonin/Py no information pyridoxine information 16 d information rid oxine name (1 source.) Discontinued 1 ORAL Bedtime July 19, 2015 no Nitrofurant no 07-08-19 Complete no Nitrofuranto no information oin information 16 - d information in name (1 source.) Monohyd/M-C 07-19-19 Monohyd/M-Cr ryst 16 yst Discontinued 1 ORAL Twice A Day July 08, 2015 8:27pm July 19, 2015 nitrofurant NITROFURANT Nitrofuran 25 mg 11-12-19 Complete no Nitrofuranto no oin, OIN, Antibacteri 17 - d information in name macrocrysta MACROCRYSTA al 01-10-20 Monohyd/M-Cr ls 25 mg / LS / 17 yst nitrofurant Nitrofurant Discontinued oin, oin, 100 ORAL monohydrate Monohydrate Twice A Day 75 mg oral November (2016 sources.) 8:24pm January 09, 2017 no Nortel no 09-16-19 Complete no Nortel no information information 11 d information Disconti nued name (2 NOT sources.) APPLICABLE September 15, 2010 08-03-2011 Completed no Nortel no name inform Disconti ation nued 1 ORAL Daily August 03, 2011 no Onabotulinu no 03-11-19 Complete no Onabotulinum no information mtoxina information 14 d information toxina name (1 source.) Discontinued 200 INTRAVENOUS Every 3 Months March 11, 2013 oxyCODONE oxyCODONE Opioid 11-04-19 Complete no Oxycodone n o hydrochlori Agonist 19 - d information Hcl na me de 5 mg 11-04-19 Discontinued oral tablet 19 - 5 ORAL Every (2 11-04-19 4HRS as sources.) 19 needed for Pain-Severe 12 November 03, 2018 11:48am (One-Time) 5 mg 11-03-2018 Completed take 1 Oxycodon Tala C tablet e Hcl Gonzalez (no by (Oxyir phone) mouth Tablet) every 5 Mg Tab four 5 Mg hours ORAL as Every needed 4HRS as for needed pain for Pain-Sev ere 12 Tab 11/03/18 no no 02-29-20 Complete no Vit no information Vit information 16 d information W-Ca,Fe ,Fa( name (1 source.) W-Ca,Fe,Fa( Discontinued <1 Mg) 1 ORAL February 29, 2016 no no 02-29-20 Complete no Vit (no information Vit information 16 d information W-Ca,Fe ,Fa( phone) (10 W-Ca,Fe,Fa( Discontinued sources.) <1 Mg) ( Vitamins) 1 Each Tablet, 1 Each Oral Problems Active Problems Problem Normalized Date Last Normalized Normalized Provider Fa cility Classification Problem(s) Recorded Problem Problem Sta tus Duration Other female Abnormal Chronic Active no name no informa tion genital uterine and disorders (4 vaginal sources.) bleeding, unspecified Other Abnormality in Episodic Active TALA GONZALEZ , Not Available complications heart DO (13132) of ; rate and puerperium rhythm affecting complicating management of labor and mother (5 delivery sources.) Residual Acquired Episodic Active FADI TENZIN , Not Avai lable codes; absence of MD (47486) unclassified other (21 sources.) specified parts of digestive tract Acute Acute Episodic Active TALA GONZALEZ , Not Avail able posthemorrhagi posthemorrhagi DO (48693) c anemia (5 c anemia sources.) Allergic Allergy status Episodic Active no name [facility] Via reactions (25 to other Suzy sources.) antibiotic Hospital - agents status [place] Translations: (96860) [ ALLERGY STATUS TO PENICILLIN, ALLERGY STATUS TO OTH DRUG/MEDS/BIOL SUB, ALLERGY STATUS TO SULFONAMIDES STATUS, ALLERGY STATUS TO OTH DRUG/MEDS/BIOL SUB, ALLERGY STATUS TO PENICILLIN] Other Anemia of the Chronic Active TALA GONZALEZ , Not Available complications puerperium DO (50317) of ; puerperium affecting management of mother (5 sources.) Anxiety Anxiety Chronic Active no name [facility] Via disorders (21 disorder, Suzy sources.) unspecified Hospital - Translations: [place] [ (09578) POST-TRAUMATIC STRESS DISORDER, UNSPECIF, ANXIETY DISORDER, UNSPECIFIED, GENERALIZED ANXIETY DISORDER, ANXIETY DISORDER, UNSPECIFIED, POST-TRAUMATIC STRESS DISORDER, UNSPECIF] Other Bariatric Episodic Active YE KAIT , DO Not Carmel ilable gastrointestin surgery status (88818) al disorders (3 sources.) Pneumonia Community Episodic Active PANCHITO ANTOINE [facility] Via (except that acquired Suzy caused by pneumonia Hospital - tuberculosis Translations: [place] or sexually [ PNEUMONIA, (24916) transmitted UNSPECIFIED disease) (12 ORGANISM, sources.) Community acquired pneumonia] Other Constipation, Episodic Active BILLY Not Avai lable gastrointestin unspecified MD ALINE (11270) al disorders (9 sources.) Residual Contact with Episodic Active PANCHITOEMMA ANTOINE Not A vailable codes; and (34843) unclassified (suspected) (6 sources.) exposure to environmental tobacco smoke (acute) (chronic) Ovarian cyst Cyst of ovary Episodic Active STACEY WU [facility] ia (5 sources.) Translations: Suzy [ UNSPECIFIED Hospital - OVARIAN CYST, [place] RIGHT SIDE] (03343) Disorders of Dental caries Episodic Active PANCHITO ANTOINE N ot Available teeth and jaw extending into (98293) (20 sources.) dentin Translations: [ JAW PAIN, PERIAPICAL ABSCESS WITHOUT SINUS, DENTAL CARIES, UNSPECIFIED, - Caries K02.9, Dental abscess, Dental caries extending into dentin] Complication Displacement Episodic Active TALA GONZALEZ , [facility] Via of device; of DO Suzy implant or intrauterine Hospital - graft (3 contraceptive [place] sources.) device, (86250) initial encounter Conditions Dizziness and Episodic Active no name no info rmation associated giddiness with dizziness or vertigo (4 sources.) Administrative Emotional Chronic Active no name [facility] isti /social stress Hospital admission (11 Translations: [place] sources.) [ Under (70890) emotional stress] Immunizations Encounter for Episodic Active TALA LISA , Not Available and screening immunization DO (38627) for infectious disease (10 sources.) Endometriosis Endometriosis Chronic Active TALA GONZALEZ , [facility] Via (12 sources.) (clinical) DO Suzy Translations: Hospital - [ [place] ENDOMETRIOSIS, (97538) UNSPECIFIED, Endometriosis] Unclassified Evaluation no information Active WISAM kaplan Via (1 source.) finding GELSAAD [place] [address] [facility] (09996) Early or False labor at Episodic Active LUIS A ARRIOLA , No t Available threatened or after 37 MD (65960) labor (15 completed sources.) weeks of gestation Translations: [ LABOR WITHOUT DELIVERY, THIRD TR] Residual Family history Episodic Active TALA LISA [facility] Via codes; of diabetes DO [facility] unclassified mellitus Hospital - (4 sources.) [place] (33411) Residual Family history Episodic Active TALA LISA [facility] Via codes; of ischemic DO [facility] unclassified heart disease Hospital - (4 sources.) and other [place] diseases of (67009) the circulatory system Residual Family history Episodic Active TALA LISA [facility] Via codes; of other DO [facility] unclassified mental and Hospital - (4 sources.) behavioral [place] disorders (59419) Esophageal Gastro-esophag Chronic Active no name [facility] a disorders (20 eal reflux Suzy sources.) disease Hospital - without [place] esophagitis (53125) Superficial Insect bite Episodic Active no name no infor mation injury; (nonvenomous) contusion (4 of left upper sources.) arm, initial encounter Open wounds of Laceration of Episodic Active no name Via [facility] extremities finger [facility] (16 sources.) Translations: [place] [ LACERATION (09263) W/O FB OF L IDX FNGR W/O ROBERT, Laceration of finger] Other ear and Myringotomy Episodic Active no name no inf ormation sense organ tube(s) status disorders (4 sources.) Other ear and Myringotomy Chronic Active PANCHITO BERNOT [facility] Via sense organ tube(s) status [facility] disorders (4 Hospital - sources.) [place] (86005) Nausea and Nausea with Episodic Active YE KAIT , DO Not Available vomiting (10 vomiting, (20389) sources.) unspecified Translations: [ Nausea and vomiting in adult patient] Substance-rela Nicotine Chronic Active PETER JIMENEZ Not Av ailable malia disorders dependence, (26569) (5 sources.) cigarettes, in remission Substance-rela Nicotine Chronic Active CHRISTOPHE Not Avai lable malia disorders dependence, DONTE , (64923) (20 sources.) cigarettes, MD uncomplicated Nonspecific Other chest Episodic Active CHRISTOPHE Not Avai lable chest pain (9 pain DONTE , (26544) sources.) MD Other nervous Other chronic Chronic Active YE KAIT , DO Not Available system pain (47666) disorders (13 sources.) Other Other long Episodic Active CHRISTOPHE Not Availab le aftercare (22 term (current) BRUEGGEMANN , (38514) sources.) drug therapy Other Other Episodic Active TALA GONZALEZ , Not Avail able complications specified DO (87073) of diseases and (5 sources.) conditions complicating , childbirth and the puerperium Other Other Episodic Active JUAN MIGUEL JIMENEZ Not Availab le inflammatory specified (22669) condition of erythematous skin (5 conditions sources.) Other female Other Episodic Active BILLY Not Availa ble genital specified MD ALINE (42334) disorders (6 noninflammator sources.) y disorders of vagina Screening and Personal Episodic Active JACOB VO V ia history of history of DO [facility] mental health nicotine Hospital - and substance dependence [place] abuse codes (4 (96665) sources.) Other Personal Episodic Active PANCHITO ANTOINE Not Avail able gastrointestin history of (39675) al disorders other diseases (4 sources.) of the digestive system Other nervous Personal Episodic Active JACOB HUMPHREYS V ia system history of SODA FLAKER Suzy disorders (5 other diseases Hospital - sources.) of the nervous [place] system and (32223) sense organs Other lower Pleurodynia Episodic Active CHRISTOPHE Not Avai lable respiratory BRUEGGEMANN , (40472) disease (9 MD sources.) Other Episodic Active JUAN MIGUEL JIMENEZ Not Availab le and state, (96779) delivery incidental including Translations: normal (13 [ SINGLE LIVE sources.) ] Contraceptive Presence of Episodic Active no name JACOB Vi a and (intrauterine) Suzy procreative contraceptive Hospital - management (20 device [place] sources.) Translations: (61230) [ ENCOUNTER FOR ROUTINE CHECKING OF INTRAU] Residual Procedure and Episodic Active JACOB VO Via codes; treatment not DO Suzy unclassified carried out Hospital - (4 sources.) for other [place] reasons (76300) Other skin Rash and other Episodic Active JUAN MIGUEL JIMENEZ Not Available disorders (5 nonspecific (31195) sources.) skin eruption Mood disorders Recurrent Chronic Active MAY BRENNAN Com munity (23 sources.) [facility] [id number] [place] [address] depressive [place], [place] ([address]) moderate Translations: [ Depression, major, recurrent, moderate, Dysthymic disorder, Dysthymic disorder, - Depression, major, recurrent, moderate F33.1, MAJOR DEPRESSIVE DISORDER, SINGLE EPISOD] Administrative Stress, not Episodic Active JUAN MIGUEL JIMENEZ Not Available /social elsewhere (82099) admission (5 classified sources.) OB-related Third degree Episodic Active TALA GONZALEZ , Not Available trauma to perineal DO (14454) perineum and laceration vulva (5 during sources.) delivery Other injuries Tick bite Episodic Active no name Via [facility] isti and conditions Translations: Hospital due to [ Tick bite] [place] external (80308) causes (11 sources.) Asthma (4 Unspecified Chronic Active TALA GONZALEZ , [facility] Vi a sources.) asthma, DO [facility] (53993) Epilepsy; Unspecified Episodic Active YE CARBALLO , DO Not A vailable convulsions (5 convulsions (86300) sources.) Other Unspecified Episodic Active LUIS A ARRIOLA , Not A vailable complications infection of MD (35137) of urinary tract (5 sources.) in , third trimester Sexually Unspecified Episodic Active WISAM [place] Via transmitted sexually GELLENDER [facility] infections transmitted [address] Hospital (not HIV or disease (08101) hepatitis) (8 Translations: sources.) [ Sexually transmitted disease] Intestinal Viral Episodic Active PANCHITO BERNOT Not Avai lable infection (7 gastroenteriti (85546) sources.) s Translations: [ VIRAL INTESTINAL INFECTION, UNSPECIFIED, Viral gastroenteriti s] Malaise and Weakness Episodic Active LOCAL NO Via [facility] fatigue (13 Translations: Hospital sources.) [ Weakness] [place] (92252) Past or Other Problems Problem Normalized Date Last Normalized Normalized Provider Fa cility Classification Problem(s) Recorded Problem Problem Sta tus Duration Residual 30 weeks no information no information TALA GONZALEZ , Not Available codes; gestation of DO (57564) unclassified (5 sources.) Residual 35 weeks no information no information LUIS A ZEINAB , Not Available codes; gestation of MD (08031) unclassified (5 sources.) Residual 36 weeks no information no information LUIS A ZEINAB , Not Available codes; gestation of MD (63056) unclassified (5 sources.) Residual 37 weeks no information no information TALA GONZALEZ , Not Available codes; gestation of DO (64571) unclassified (10 sources.) Residual 39 weeks no information no information TALA GONZALEZ , Not Available codes; gestation of DO (15808) unclassified (5 sources.) Residual 9 weeks no information no information JUAN MIGUEL Allen ot Available codes; gestation of (80166) unclassified (5 sources.) External Bitten or no information no information no name no information Injury - stung by Natural / nonvenomous Environment (4 insect and sources.) other nonvenomous arthropods, initial encounter External Contact with no information no information no name no information Injury - Cut / knife, initial [place] (5 encounter sources.) Other lower Cough Episodic Completed PANCHITO BERNOT [facility] Via respiratory [facility] disease (4 Hospital - sources.) [place] (53404) 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 PANCHITO BERNOT [facility] Via aftercare (4 (current) use Suzy sources.) of systemic Hospital - steroids [place] (59054) Mood disorders Major no information no information no name [facility] Via (21 sources.) depressive [facility] disorder, Hospital - single [place] episode, (40061) unspecified Other Other Episodic Completed ANNY BETH Not Avai lable complications complications (28393) of ; of anesthesia puerperium or other affecting sedation in management of labor and mother (1 delivery, source.) delivered, with or without mention of antepartum condition Residual Other no information no information YE CARBALLO DO Not Available codes; specified (04567) unclassified postprocedural (12 sources.) states Procedures Procedure Normalized Procedure Procedure Result Performer Facility Date 02-04-2018 CT of head without no information YE CARBALLO [facility] contrast [place] (16394) 11-03-2018 Diagnostic laparoscopy no information TALA GONZALEZ [place] [facility] (93725) 08-10-2018 Diagnostic radiography no information PANCHITO BERNKELLI 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 (08350) Immunizations Normalized Immunization Date Notes Care Provider Facili ty Immunization no information 12-28-2018 no information WISAM SHAH [facility] [address] [facility] (46988) Results Test Name Value Interpretation Reference Range Date Time Fa cility (Normalized) (Normalized) (Medline Reference) laboratory on 2019-07-27 Albumin 4.6 g/dL (N) 3.4 - 5.4 g/dL [facility] [Mass/Vol] [facility] (13023) Albumin/Globulin 1.9 {ratio} (N) 1 - 2.5 {ratio} Comm [facility] [Mass ratio] [facility] (60326) ALP [Catalytic 51 U/L (N) 44 - 147 U/L [facility] Health activity/Vol] [facility] (94157) ALT [Catalytic 13 U/L (N) 4 - 40 U/L [facility] ealt activity/Vol] [facility] (12150) AST [Catalytic 16 U/L (N) 10 - 34 U/L [facility] Health activity/Vol] [facility] ([id number]) Basophils (Bld) 0.071 10*3/uL (N) 0 - 0.3 10*3/uL [facility] [#/Vol] [facility] (69495) Basophils/100 0.7 % (N) 0.5 - 1 % [facility] WBC (Bld) [facility] (92619) Bilirubin 0.2 mg/dL (N) 0.1 - 1.2 mg/dL [facility] [Mass/Vol] [facility] (57549) Calcidiol 12 ng/mL (L) 20 - 50 ng/mL [facility] [Mass/Vol] [facility] (12356) Calcium 9.3 mg/dL (N) 8.5 - 10.2 mg/dL [facility] [Mass/Vol] [facility] (79877) Chloride 107 mmol/L (N) 95 - 106 mmol/L [facility] Health [Moles/Vol] [facility] (70485) Cholesterol 165 mg/dL (N) 180 - 200 mg/dL [facility] Health [Mass/Vol] [facility] (15782) Cholesterol in 54 mg/dL (N) [facility] HDL [Mass/Vol] [facility] (96486) Cholesterol in 96 mg/dL (N) 0 - 100 mg/dL [facility] LDL [Mass/Vol] [facility] (79837) Cholesterol non 111 mg/dL (N) [facility] HDL [Mass/Vol] [facility] (78926) Cholesterol.tota 3.1 {ratio} (N) [facility] lt l/Cholesterol in [facility] HDL [Mass ratio] [facility] (94568) CO2 [Moles/Vol] 23 mmol/L (N) 23 - 29 mmol/L [facility] (58856) Creatinine 0.61 mg/dL (N) [facility] h [Mass/Vol] [facility] (17795) Eosinophils 0.214 10*3/uL (N) 0.05 - 0.5 [facility] He alth (Bld) [#/Vol] 10*3/uL [facility] (96599) Eosinophils/100 2.1 % (N) 1 - 4 % [facility] WBC (Bld) [facility] (14213) Erythrocyte 13.9 % (N) 11.6 - 14.6 % [facility] width (RBC) [facility] [Ratio] (39837) GFR/1.73 sq M 144 (N) 90 - 120 [facility] predicted among mL/min/{1.73_m2} mL/min/{1.73_m2} Center o f [facility] blacks MDRD [facility] (S/P/Bld) [Vol ([id number]) rate/Area] GFR/1.73 sq 124 (N) 90 - 120 [facility] Heal th M.predicted MDRD mL/min/{1.73_m2} mL/min/{1.73_m2} [facility] (S/P/Bld) [Vol [facility] rate/Area] ([id number]) Globulin (S) 2.4 g/dL (N) 2 - 3.5 g/dL [facility] H ealth [Mass/Vol] [facility] (17524) Glucose 90 mg/dL (N) 60 - 125 mg/dL [facility] [Mass/Vol] [facility] (69630) Hematocrit (Bld) 42.0 % (N) 36.1 - 50.3 % [facility] ity Health [Volume [facility] (55055) Hemoglobin (Bld) 13.8 g/dL (N) 12.1 - 17.2 g/dL [facility] [Mass/Vol] [facility] (11616) Lymphocytes 3.356 10*3/uL (N) 0.9 - 2.9 [facility] He alth (Bld) [#/Vol] 10*3/uL [facility] (34391) Lymphocytes/100 32.9 % (N) 20 - 40 % [facility] WBC (Bld) [facility] (82010) MCH (RBC) 32.0 pg (N) 27 - 31 pg [facility] Heal th [Entitic mass] [facility] (05923) MCHC (RBC) 32.9 g/dL (N) 32 - 36 g/dL [facility] He alth [Mass/Vol] [facility] (73380) MCV (RBC) 97.4 fL (N) 80 - 100 fL [facility] Hea lth [Entitic vol] [facility] (22310) Monocytes (Bld) 0.632 10*3/uL (N) 0.3 - 0.9 [facility] [#/Vol] 10*3/uL [facility] (43130) Monocytes/100 6.2 % (N) 2 - 8 % [facility] WBC (Bld) [facility] (80174) Neutrophils 5.926 10*3/uL (N) 1.7 - 7 10*3/uL [facility] Health (Bld) [#/Vol] [facility] (58771) Neutrophils/100 58.1 % (N) 40 - 60 % [facility] WBC (Bld) [facility] (51564) Platelet mean 10.4 fL (N) 7.2 - 11.7 fL [facility] volume (Bld) [facility] [Entitic vol] [facility] (55235) Platelets (Bld) 365 10*3/uL (N) 150 - 450 [facility] [#/Vol] 10*3/uL [facility] (82135) Potassium 4.4 mmol/L (N) 3.7 - 5.2 mmol/L [facility] [Moles/Vol] [facility] (81528) Protein 7.0 g/dL (N) 6.4 - 8.3 g/dL [facility] [Mass/Vol] [facility] (82228) RBC (Bld) 4.31 10*6/uL (N) 4.2 - 6.1 [facility] Hea lth [#/Vol] 10*6/uL [facility] (48908) Sodium 139 mmol/L (N) 135 - 145 mmol/L [facility] [Moles/Vol] [facility] (82505) Triglyceride 67 mg/dL (N) 0 - 150 mg/dL [facility] [Mass/Vol] [facility] (57504) TSH Qn 0.95 m[IU]/L (N) 0.4 - 4 m[IU]/L [facility] (91486) Urea nitrogen 8 mg/dL (N) 7 - 20 mg/dL [facility] [Mass/Vol] [facility] (31265) Urea NOT APPLICABLE (no code) [facility] Healt h nitrogen/Creatin [facility] [Mass ratio] [facility] (11198) WBC (Bld) 10.2 10*3/uL (N) 3.5 - 10.5 [facility] [#/Vol] 10*3/uL [facility] (95604) urine urobilinogen measurement by automated test strip (mass/volume) on 2018-12-28 Urobilinogen (U) NORMAL (no code) 12-28-2018 [facility] [Mass/Vol] 14:30-0400 [facility] (27122) urine total bilirubin detection by test strip on 2018-12-28 Bilirubin Ql (U) Negative (no code) 12-28-2018 [facility] 14: [facility] (92574) urine protein assay by test strip, semi-quantitativ e on 2018-12-28 Protein Ql (U) 1+ (no code) 12-28-2018 [facility] 14: [facility] (63536) urine ph measurement by test strip on 2018-12-28 pH (U) 6.5 [pH] (no code) 4.6 - 8 [pH] 12-28-2018 [facility] 14: [facility] (14961) urine nitrite detection by test strip on 2018-12-28 Nitrite Ql (U) Negative (no code) 12-28-2018 [facility] 14: [facility] (67897) urine leukocyte esterase detection by dipstick on 2018-12-28 Leukocyte 1+ (no code) 12-28-2018 [facility] esterase Test 14: [facility] strip Ql (U) (61397) urine ketones detection by automated test strip on 2018-12-28 Ketones Auto Negative (no code) 12-28-2018 [facility] test strip Ql 14: [facility] (U) (38741) urine glucose detection by automated test strip on 2018-12-28 Glucose Auto Negative (no code) 12-28-2018 [facility] test strip Ql 14:30 [facility] (U) (04934) urine color determination on 2018-12-28 Color (U) YELLOW (no code) 12-28-2018 [facility] 14: [facility] (54096) urine clarity determination on 2018-12-28 Clarity (U) SLIGHTLY CLOUDY (no code) 12-28-2018 [facility] 14:30 [facility] (51666) squamous epithelial cells detection in urine sediment by light microscopy on 2018-12-28 Epithelial 5-10 (no code) 12-28-2018 [facility] cells.squamous 14: [facility] LM Ql (Urine (53782) sed) specific gravity of urine by test strip on 2018-12-28 Specific gravity 1.010 (no code) 12-28-2018 [facility] (U) [Rel 14:300 [facility] density] (20329) mucus detection in urine sediment by light microscopy on 2018-12-28 Mucus Ql (Urine Negative (no code) 12-28-2018 [facility] sed) 14:30 [facility] (13154) erythrocytes detection in urine sediment by light microscopy on 2018-12-28 RBC Ql (U) 5+ (no code) 12-28-2018 [facility] 14:300 [facility] (15546) crystals detection in urine sediment by light microscopy on 2018-12-28 Crystals LM Ql NONE (no code) 12-28-2018 [facility] (Urine sed) 14: [facility] (33259) complete urinalysis with reflex to culture on 2018-12-28 Urinalysis NO (no code) 12-28-2018 [facility] complete W 14: [facility] Reflex Culture ([id number]) panel - Urine casts detection in urine sediment by light microscopy on 2018-12-28 Casts LM Ql NONE (no code) 12-28-2018 [facility] (Urine sed) 14:300400 [facility] (20783) bacteria detection in urine sediment by light microscopy on 2018-12-28 Bacteria LM Ql Negative (no code) 12-28-2018 [facility] (Urine sed) 14:300 [facility] (89459) automated urine sediment leukocyte count by microscopy (number/high power field) on 2018-12-28 WBC LM.HPF NONE (no code) 12-28-2018 [facility] (Urine sed) 14:0 [facility] [#/Area] (57043) automated urine sediment erythrocyte count by microscopy (number/high power field) on 2018-12-28 RBC LM.HPF TNTC (no code) 12-28-2018 [facility] (Urine sed) 14:300 [facility] [#/Area] (41583) venous blood hemoglobin measurement (mass/volume) on 2018-11-03 Hemoglobin (Bld) 11.3 g/dL (L) 12.1 - 17.2 g/dL [facility] [Mass/Vol] [facility] (17469) blood monocytes/100 leukocytes on 2018-11-03 Monocytes/100 5 % (no code) 2 - 8 % [facility] WBC (Bld) [facility] (68378) blood monocytes automated count (number/volume) on 2018-11-03 Monocytes (Bld) 0.4 10*3/uL (no code) 0.3 - 0.9 [facility] [#/Vol] 10*3/uL [facility] (39395) blood hematocrit (volume fraction) on 2018-11-03 Hematocrit (Bld) 34 % (L) 36.1 - 50.3 % [facility] [Volume [facility] fraction] (54255) blood erythrocytes automated count (number/volume) on 2018-11-03 RBC (Bld) 3.60 10*6/uL (L) 4.2 - 6.1 [facility] [#/Vol] 10*6/uL [facility] (48682) automated erythrocyte mean corpuscular volume (mcv) measurement on 2018-11-03 MCV (RBC) 95 fL (no code) 80 - 100 fL [facility] [Entitic vol] [facility] (96816) automated erythrocyte mean corpuscular hemoglobin concentration measurement (mass/volume) on 2018-11-03 MCHC (RBC) 33 g/dL (no code) 32 - 36 g/dL [facility] [Mass/Vol] [facility] (05652) automated erythrocyte mean corpuscular hemoglobin (mass per erythrocyte) on 2018-11-03 MCH (RBC) 31 pg (no code) 27 - 31 pg [facility] [Entitic mass] [facility] (54544) automated erythrocyte distribution width ratio on 2018-11-03 Erythrocyte 14.7 % (H) 11.6 - 14.6 % [facility] distribution [facility] width (RBC) (04804) [Ratio] automated eosinophil count on 2018-11-03 Eosinophils 0.2 10*3/uL (no code) 0.05 - 0.5 [facility] (Bld) [#/Vol] 10*3/uL [facility] (13124) automated blood platelet mean volume measurement on 2018-11-03 Platelet mean 9.2 fL (no code) 7.2 - 11.7 fL [facility] volume (Bld) [facility] [Entitic vol] (95543) automated blood platelet count (count/volume) on 2018-11-03 Platelets (Bld) 372 10*3/uL (no code) 150 - 450 [facility] [#/Vol] 10*3/uL [facility] (81863) automated blood neutrophils/100 leukocytes on 2018-11-03 Neutrophils/100 48 % (no code) 40 - 60 % [facility] WBC (Bld) [facility] (65097) automated blood neutrophil count (number/volume) on 2018-11-03 Neutrophils 3.5 10*3/uL (no code) 1.7 - 7 10*3/uL [facility] (Bld) [#/Vol] [facility] (85572) automated blood lymphocytes/100 leukocytes on 2018-11-03 Lymphocytes/100 44 % (no code) 20 - 40 % [facility] WBC (d) [facility] (68259) automated blood lymphocyte count (number/volume) on 2018-11-03 Lymphocytes 3.3 10*3/uL (no code) 0.9 - 2.9 [facility] (Bld) [#/Vol] 10*3/uL [facility] (61281) automated blood leukocyte count (number/volume) on 2018-11-03 WBC (d) 7.4 10*3/uL (no code) 3.5 - 10.5 [facility] [#/Vol] 10*3/uL [facility] (20089) automated blood eosinophils/100 leukocytes on 2018-11-03 Eosinophils/100 2 % (no code) 1 - 4 % [facility] WBC (d) [facility] (03364) automated blood basophils/100 leukocytes on 2018-11-03 Basophils/100 1 % (no code) 0.5 - 1 % [facility] WBC (Bld) [facility] (90790) automated blood basophil count (number/volume) on 2018-11-03 Basophils (Bld) 0.0 10*3/uL (no code) 0 - 0.3 10*3/uL [facility] [#/Vol] [facility] (92380) venous blood hemoglobin measurement (mass/volume) on 2018-02-07 Hemoglobin mass 14.0 g/dL (no code) 12.1 - 17.2 g/dL Via [facility] (d) [facility] (14431) urine urobilinogen measurement by automated test strip (mass/volume) on 2018-02-07 Urobilinogen 4 (*) Via [facility] Test strip Qn [facility] ([facility] (15057) urine total bilirubin detection by test strip on 2018-02-07 Bilirubin Ql (U) 1+ (*) Via [facility] (31122) urine protein assay by test strip, semi-quantitativ e on 2018-02-07 Protein Test 2+ (*) Via [facility] strip ([facility] (83073) urine ph measurement by test strip on 2018-02-07 pH Test strip 6.5 [pH] (no code) 4.6 - 8 [pH] Via [facility] ([facility] (36467) urine nitrite detection by test strip on 2018-02-07 Nitrite Test Negative (no code) Via [facility] strip ([facility] (45323) urine leukocyte esterase detection by dipstick on 2018-02-07 Leukocyte 1+ (*) Via [facility] esterase Test Hospital strip ([facility] (09075) urine ketones detection by automated test strip on 2018-02-07 Ketones 1+ (*) Via [facility] Automated test Hospital strip ([facility] ([id number]) urine glucose detection by automated test strip on 2018-02-07 Glucose Negative (no code) Via [facility] Automated test Hospital strip ([facility] (10721) urine color determination on 2018-02-07 Color Nom (U) YELLOW (no code) Via [facility] (36295) urine clarity determination on 2018-02-07 Clarity Nom (U) SLIGHTLY CLOUDY (no code) Via [facility] (47427) squamous epithelial cells detection in urine sediment by light microscopy on 2018-02-07 Epithelial no information (no code) Via [facility] cells.squamous Hospital LM Ql (Urine [place] sed) (23048) specific gravity of urine by test strip on 2018-02-07 Specific gravity 1.015 (*) Via [facility] Relative Density [facility] ([facility] (39018) serum or plasma urea nitrogen/creatin ine mass ratio on 2018-02-07 Urea 12 mg/mg (no code) 6 - 22 mg/mg Via [facility] nitrogen/Creatin Hospital ine mass ratio [place] (81621) serum or plasma urea nitrogen measurement (mass/volume) on 2018-02-07 Urea nitrogen 8 mg/dL (no code) 7 - 20 mg/dL Via [facility] (43688) serum or plasma total bilirubin measurement (mass/volume) on 2018-02-07 Bilirubin mass 0.3 mg/dL (no code) 0.1 - 1.2 mg/dL Via [facility] (56448) serum or plasma sodium measurement (moles/volume) on 2018-02-07 Sodium molar 141 mmol/L (no code) 135 - 145 mmol/L Via [facility] (24802) serum or plasma protein measurement (mass/volume) on 2018-02-07 Protein mass 8.1 g/dL (no code) 6.4 - 8.3 g/dL Via [facility] (65042) serum or plasma potassium measurement (moles/volume) on 2018-02-07 Potassium molar 3.7 mmol/L (no code) 3.7 - 5.2 mmol/L Via [facility] (36551) serum or plasma glucose measurement (mass/volume) on 2018-02-07 Glucose mass 96 mg/dL (no code) 60 - 125 mg/dL Via [facility] (44430) serum or plasma creatinine measurement with calculation of estimated glomerular filtration rate on 2018-02-07 GFR/1.73 sq M no information (no code) Via [facility] non-blacks MDRD [place] vol rate/area () (S/P/Bld) serum or plasma creatinine measurement (mass/volume) on 2018-02-07 Creatinine mass 0.66 mg/dL (no code) Via [facility] (53438) serum or plasma chloride measurement (moles/volume) on 2018-02-07 Chloride molar 105 mmol/L (no code) 95 - 106 mmol/L Via [facility] (24450) serum or plasma calcium measurement (mass/volume) on 2018-02-07 Calcium mass 10.3 mg/dL (H) 8.5 - 10.2 mg/dL Via [facility] (31066) serum or plasma aspartate aminotransferase measurement (enzymatic activity/volume) on 2018-02-07 AST enzyme 14 U/L (no code) 10 - 34 U/L Via [facility] act/[facility] (46237) serum or plasma anion gap determination (moles/volume) on 2018-02-07 Anion gap 3 11 mmol/L (no code) 3 - 11 mmol/L [facility] molar [facility] (59433) serum or plasma alkaline phosphatase measurement (enzymatic activity/volume) on 2018-02-07 ALP enzyme 62 U/L (no code) 44 - 147 U/L Via [facility] act/[facility] (16033) serum or plasma albumin measurement (mass/volume) on 2018-02-07 Albumin mass 4.9 g/dL (H) 3.4 - 5.4 g/dL Via [facility] (27487) serum or plasma alanine aminotransferase measurement (enzymatic activity/volume) on 2018-02-07 ALT enzyme 13 U/L (no code) 4 - 40 U/L Via [facility] act/[facility] (89288) mucus detection in urine sediment by light microscopy on 2018-02-07 Mucus LM Ql LARGE (*) Via [facility] (Urine sed) [facility] (26239) lipase on 2018-02-07 Lipase enzyme 25 U/L (no code) 10 - 73 U/L Via [facility] act/[facility] (43281) erythrocytes detection in urine sediment by light microscopy on 2018-02-07 RBC LM Ql (Urine Negative (no code) Via [facility]) [facility] (75821) crystals detection in urine sediment by light microscopy on 2018-02-07 Crystals LM Ql NONE (no code) Via [facility] (Urine sed) [facility] (15147) complete urinalysis with reflex to culture on 2018-02-07 Urinalysis NO (no code) Via [facility] Reflex Culture [place] panel - Urine (89639) casts detection in urine sediment by light microscopy on 2018-02-07 Casts LM Ql NONE (no code) Via [facility] (Urine sed) [facility] (09455) carbon dioxide on 2018-02-07 CO2 molar conc 25 mmol/L (no code) 23 - 29 mmol/L [facility] (97733[facility] blood neutrophils automated count (number/volume) on 2018-02-07 Neutrophils Auto 5.4 10*3/uL (no code) 1.7 - 7 10*3/uL Via [facility] #/vol (Bld) [facility] ([id number]) blood monocytes/100 leukocytes on 2018-02-07 Monocytes/100 6 % (no code) 2 - 8 % [facility] WBC Auto (Bld) [facility] (02889) blood monocytes automated count (number/volume) on 2018-02-07 Monocytes Auto 0.5 10*3/uL (no code) 0.3 - 0.9 [facility] #/vol (Bld) 10*3/uL [facility] (78201) blood lymphocytes automated count (number/volume) on 2018-02-07 Lymphocytes Auto 3.6 10*3/uL (no code) 0.9 - 2.9 Via [facility] #/vol (Bld) 10*3/uL [facility] (24981) blood leukocytes automated count (number/volume) on 2018-02-07 WBC Auto #/vol 9.7 10*3/uL (no code) 3.5 - 10.5 [facility] (Bld) 10*3/uL [facility] (06823) blood hematocrit (volume fraction) on 2018-02-07 Hematocrit Auto 42 % (no code) 36.1 - 50.3 % [facility] (d) [place] (59555) blood erythrocytes automated count (number/volume) on 2018-02-07 RBC Auto #/vol 4.45 10*6/uL (no code) 4.2 - 6.1 Via [facility] i (Bld) 10*6/uL [facility] (74301) bacteria detection in urine sediment by light microscopy on 2018-02-07 Bacteria LM Ql Negative (no code) [facility] (Urine sed) [facility] (59123) automated urine sediment leukocyte count by microscopy (number/high power field) on 2018-02-07 WBC LM.HPF no information (no code) [facility] #/area (Urine Hospital sed) [place] (96727) automated urine sediment erythrocyte count by microscopy (number/high power field) on 2018-02-07 RBC LM.HPF RARE (no code) [facility] #/area (Urine Hospital sed) [place] (47920) automated erythrocyte mean corpuscular volume on 2018-02-07 MCV Auto Entitic 94 fL (no code) 80 - 100 fL Via Chri sti volume (RBC) [facility] (19038) automated erythrocyte mean corpuscular hemoglobin concentration measurement (mass/volume) on 2018-02-07 MCHC Auto mass 34 g/dL (no code) 32 - 36 g/dL Via [facility] conc (RBC) [facility] (66591) automated erythrocyte mean corpuscular hemoglobin (mass per erythrocyte) on 2018-02-07 MCH Auto Entitic 32 pg (no code) 27 - 31 pg Via [facility] mass (RBC) [facility] (83337) automated erythrocyte distribution width ratio on 2018-02-07 Erythrocyte 14.3 % (no code) 11.6 - 14.6 % Via [facility] distribution Hospital width Auto Ratio [place] (RBC) (34489) automated eosinophil count on 2018-02-07 Eosinophils Auto 0.1 10*3/uL (no code) 0.05 - 0.5 Via [facility] ti #/vol (Bld) 10*3/uL [facility] (29800) automated blood platelet mean volume measurement on 2018-02-07 Platelet mean 9.8 fL (no code) 7.2 - 11.7 fL Via [facility] volume Auto Hospital Entitic volume [place] (Bld) (31220) automated blood platelet count (count/volume) on 2018-02-07 Platelets Auto 333 10*3/uL (no code) 150 - 450 Via [facility] #/vol (Bld) 10*3/uL [facility] (28709) automated blood neutrophils/100 leukocytes on 2018-02-07 Neutrophils/100 56 % (no code) 40 - 60 % Via [facility] WBC Auto (Bld) [facility] (58566) automated blood lymphocytes/100 leukocytes on 2018-02-07 Lymphocytes/100 37 % (no code) 20 - 40 % [facility] WBC Auto (Bld) [facility] (68224) automated blood eosinophils/100 leukocytes on 2018-02-07 Eosinophils/100 1 % (no code) 1 - 4 % [facility] WBC Auto (Bld) [facility] (95332) automated blood basophils/100 leukocytes on 2018-02-07 Basophils/100 1 % (no code) 0.5 - 1 % Via [facility] WBC Auto (Bld) [facility] (24264) automated blood basophil count (count/volume) on 2018-02-07 Basophils Auto 0.1 10*3/uL (no code) 0 - 0.3 10*3/uL Via risti #/vol (Bld) [facility] (26362) venous blood hemoglobin measurement (mass/volume) on 2018-02-04 Hemoglobin mass 11.9 g/dL (no code) 12.1 - 17.2 g/dL Via [facility] conc (Bld) [facility] (61739) urine urobilinogen measurement by automated test strip (mass/volume) on 2018-02-04 Urobilinogen NORMAL (no code) Via [facility] Test strip Qn [facility] ([facility] (50420) urine total bilirubin detection by test strip on 2018-02-04 Bilirubin Ql (U) Negative (no code) Via [facility] (08236) urine protein assay by test strip, semi-quantitativ e on 2018-02-04 Protein Test 2+ (*) Via [facility] strip () [facility] () urine ph measurement by test strip on 2018-02-04 pH Test strip 6 [pH] (no code) 4.6 - 8 [pH] Via [facility] ([facility] (37571) urine nitrite detection by test strip on 2018-02-04 Nitrite Test Negative (no code) Via [facility] strip ([facility] (60500) urine leukocyte esterase detection by dipstick on 2018-02-04 Leukocyte 1+ (*) [facility] esterase Test Hospital strip Ql () [place] (91113) urine ketones detection by automated test strip on 2018-02-04 Ketones Negative (no code) Via [facility] Automated test Hospital strip Ql () [place] (25470) urine glucose detection by automated test strip on 2018-02-04 Glucose Negative (no code) Via [facility] Automated test Hospital strip Ql () [place] (42717) urine color determination on 2018-02-04 Color Nom (U) YELLOW (no code) Via [facility] (93503) urine clarity determination on 2018-02-04 Clarity Nom (U) CLEAR (no code) Via [facility] (44171) squamous epithelial cells detection in urine sediment by light microscopy on 2018-02-04 Epithelial no information (no code) Via [facility] cells.squamous Hospital LM Ql (Urine [place] sed) (25701) specific gravity of urine by test strip on 2018-02-04 Specific gravity 1.025 (*) [facility] Relative Density [facility] (U) [place] (10714) serum or plasma urea nitrogen/creatin ine mass ratio on 2018-02-04 Urea 18 mg/mg (no code) 6 - 22 mg/mg Via [facility] [facility] mass ratio [place] ([id number]) serum or plasma urea nitrogen measurement (mass/volume) on 2018-02-04 Urea nitrogen 13 mg/dL (no code) 7 - 20 mg/dL Via [facility] ([id number]) serum or plasma total bilirubin measurement (mass/volume) on 2018-02-04 Bilirubin mass 0.1 mg/dL (no code) 0.1 - 1.2 mg/dL Via [facility] ([id number]) serum or plasma sodium measurement (moles/volume) on 2018-02-04 Sodium molar 141 mmol/L (no code) 135 - 145 mmol/L Via [facility] ([id number]) serum or plasma protein measurement (mass/volume) on 2018-02-04 Protein mass 6.6 g/dL (no code) 6.4 - 8.3 g/dL Via [facility] ([id number]) serum or plasma potassium measurement (moles/volume) on 2018-02-04 Potassium molar 4.1 mmol/L (no code) 3.7 - 5.2 mmol/L Via [facility] () serum or plasma glucose measurement (mass/volume) on 2018-02-04 Glucose mass 104 mg/dL (no code) 60 - 125 mg/dL Via [facility] () serum or plasma creatinine measurement with calculation of estimated glomerular filtration rate on 2018-02-04 GFR/1.73 sq M no information (no code) Via [facility] non-blacks MDRD [place] vol rate/area ([id number]) (S/P/Bld) serum or plasma creatinine measurement (mass/volume) on 2018-02-04 Creatinine mass 0.74 mg/dL (no code) Via [facility] ([id number]) serum or plasma creatine kinase measurement (enzymatic activity/volume) on 2018-02-04 CK enzyme 75 U/L (no code) Via [facility] act/[facility] ([id number]) serum or plasma chloride measurement (moles/volume) on 2018-02-04 Chloride molar 111 mmol/L (H) 95 - 106 mmol/L Via [facility] ([id number]) serum or plasma calcium measurement (mass/volume) on 2018-02-04 Calcium mass 9.0 mg/dL (no code) 8.5 - 10.2 mg/dL Via [facility] isti [facility] ([id number]) serum or plasma aspartate aminotransferase measurement (enzymatic activity/volume) on 2018-02-04 AST enzyme 19 U/L (no code) 10 - 34 U/L Via [facility] ([id number]) serum or plasma anion gap determination (moles/volume) on 2018-02-04 Anion gap 3 11 mmol/L (no code) 3 - 11 mmol/L Via [facility] ([id number]) serum or plasma alkaline phosphatase measurement (enzymatic activity/volume) on 2018-02-04 ALP enzyme 41 U/L (no code) 44 - 147 U/L Via [facility] ([id number]) serum or plasma albumin measurement (mass/volume) on 2018-02-04 Albumin mass 3.8 g/dL (no code) 3.4 - 5.4 g/dL Via [facility] ([id number]) serum or plasma alanine aminotransferase measurement (enzymatic activity/volume) on 2018-02-04 ALT enzyme 12 U/L (no code) 4 - 40 U/L Via [facility] ([id number]) mucus detection in urine sediment by light microscopy on 2018-02-04 Mucus LM Ql LARGE (*) Via [facility] (Urine sed) [facility] ([id number]) magnesium on 2018-02-04 Magnesium mass 2.0 mg/dL (no code) 1.7 - 2.2 mg/dL Via [facility] ([id number]) erythrocytes detection in urine sediment by light microscopy on 2018-02-04 RBC LM Ql (Urine Negative (no code) Via [facility] ([id number]) crystals detection in urine sediment by light microscopy on 2018-02-04 Crystals LM Ql NONE (no code) Via [facility] (Urine sed) [facility] ([id number]) complete urinalysis with reflex to culture on 2018-02-04 Urinalysis NO (no code) Via [facility] complete [facility] Hospital Reflex Culture [place] panel - Urine () casts detection in urine sediment by light microscopy on 2018-02-04 Casts LM Ql NONE (no code) Via [facility] (Urine sed) [facility] () carbon dioxide on 2018-02-04 CO2 molar conc 19 mmol/L (L) 23 - 29 mmol/L Via [facility] () calcium measurement corrected for albumin on 2018-02-04 Albumin mass 9.2 g/dL (no code) 3.4 - 5.4 g/dL Via [facility] conc [facility] ([id number]) blood neutrophils automated count (number/volume) on 2018-02-04 Neutrophils Auto 3.7 10*3/uL (no code) 1.7 - 7 10*3/uL Via [facility] #/vol (Bld) [facility] ([id number]) blood monocytes/100 leukocytes on 2018-02-04 Monocytes/100 7 % (no code) 2 - 8 % Via [facility] WBC Auto (Bld) [facility] () blood monocytes automated count (number/volume) on 2018-02-04 Monocytes Auto 0.6 10*3/uL (no code) 0.3 - 0.9 Via [facility] #/vol (Bld) 10*3/uL [facility] ([id number]) blood lymphocytes automated count (number/volume) on 2018-02-04 Lymphocytes Auto 4.4 10*3/uL (H) 0.9 - 2.9 Via [facility] #/vol (Bld) 10*3/uL [facility] ([id number]) blood leukocytes automated count (number/volume) on 2018-02-04 WBC Auto #/vol 8.8 10*3/uL (no code) 3.5 - 10.5 Via [facility] (Bld) 10*3/uL [facility] ([id number]) blood hematocrit (volume fraction) on 2018-02-04 Hematocrit Auto 37 % (no code) 36.1 - 50.3 % Via [facility] Volume Fraction [facility][id number][facility] blood erythrocytes automated count (number/volume) on 2018-02-04 RBC Auto #/vol 3.75 10*6/uL (L) 4.2 - 6.1 Via [facility] (Bld) 10*6/uL [facility] ([id number]) bacteria detection in urine sediment by light microscopy on 2018-02-04 Bacteria LM Ql FEW (*) Via [facility] (Urine sed) [facility] ([id number]) automated urine sediment leukocyte count by microscopy (number/high power field) on 2018-02-04 WBC LM.HPF RARE (no code) Via [facility] #/area (Urine Hospital sed) [place] ([id number]) automated urine sediment erythrocyte count by microscopy (number/high power field) on 2018-02-04 RBC LM.HPF NONE (no code) Via [facility] #/area (Urine [facility]) [place] ([id number]) automated erythrocyte mean corpuscular volume on 2018-02-04 MCV Auto Entitic 98 fL (no code) 80 - 100 fL Via [facility] sti volume (RBC) [facility] ([id number]) automated erythrocyte mean corpuscular hemoglobin concentration measurement (mass/volume) on 2018-02-04 MCHC Auto mass 33 g/dL (no code) 32 - 36 g/dL Via [facility] ti conc (RBC) [facility] ([id number]) automated erythrocyte mean corpuscular hemoglobin (mass per erythrocyte) on 2018-02-04 MCH Auto Ent[place] 32 pg (no code) 27 - 31 pg Via [facility] ti mass (RBC) [facility] ([id number]) automated erythrocyte distribution width ratio on 2018-02-04 Erythrocyte 14.7 % (H) 11.6 - 14.6 % Via [facility] distribution Hospital width Auto Ratio [place] (RBC) ([id number]) automated eosinophil count on 2018-02-04 Eosinophils Auto 0.1 10*3/uL (no code) 0.05 - 0.5 Via [facility] ti #/vol (Bld) 10*3/uL [facility] ([id number]) automated blood platelet mean volume measurement on 2018-02-04 Platelet mean 10.3 fL (no code) 7.2 - 11.7 fL Via [facility] ti volume Auto Hospital Entitic volume [place] (Bld) ([id number]) automated blood platelet count (count/volume) on 2018-02-04 Platelets Auto 299 10*3/uL (no code) 150 - 450 Via [facility] #/vol (Bld) 10*3/uL [facility] ([id number]) automated blood neutrophils/100 leukocytes on 2018-02-04 Neutrophils/100 42 % (no code) 40 - 60 % Via [facility] WBC Auto (Bld) [facility] ([id number]) automated blood lymphocytes/100 leukocytes on 2018-02-04 Lymphocytes/100 50 % (H) 20 - 40 % Via [facility] WBC Auto ([facility]) [facility] () automated blood eosinophils/100 leukocytes on 2018-02-04 Eosinophils/100 1 % (no code) 1 - 4 % Via [facility] WBC Auto ([facility]) [facility] () automated blood basophils/100 leukocytes on 2018-02-04 Basophils/100 0 % (no code) 0.5 - 1 % Via [facility] WBC Auto ([facility]) [facility] () automated blood basophil count (count/volume) on 2018-02-04 Basophils Auto 0.0 10*3/uL (no code) 0 - 0.3 10*3/uL Via [facility] #/vol ([facility] () urine urobilinogen measurement by automated test strip (mass/volume) on 2017-10-31 Urobilinogen NORMAL (no code) Via [facility] Test strip [facility] ([facility] () urine total bilirubin detection by test strip on 2017-10-31 Bilirubin Ql (U) Negative (no code) Via [facility] () urine protein assay by test strip, semi-quantitativ e on 2017-10-31 Protein Test 3+ (*) Via [facility] strip ([facility] () urine ph measurement by test strip on 2017-10-31 pH Test strip 6 [pH] (no code) 4.6 - 8 [pH] Via [facility] ([facility] () urine nitrite detection by test strip on 2017-10-31 Nitrite Test Negative (no code) Via [facility] strip ([facility] () urine ketones detection by automated test strip on 2017-10-31 Ketones Negative (no code) Via [facility] Automated test Hospital strip Ql () [place] () urine glucose detection by automated test strip on 2017-10-31 Glucose Negative (no code) Via [facility] Automated test Hospital strip Ql () [place] ([id number]) urine color determination on 2017-10-31 Color Nom (U) YELLOW (no code) Via [facility] () urine clarity determination on 2017-10-31 Clarity Nom (U) CLEAR (no code) Via [facility] ([id number]) specific gravity of urine by test strip on 2017-10-31 Specific gravity 1.025 (*) [facility] (U) [place] ([id number]) mucus detection in urine sediment by light microscopy on 2017-10-31 Mucus LM Ql LARGE (*) Via [facility] (Urine sed) [facility] ([id number]) leukocyte esterase on 2017-10-31 Leukocyte 1+ (*) Via [facility] esterase Test Hospital strip Ql (U) [place] ([id number]) erythrocytes detection in urine sediment by light microscopy on 2017-10-31 RBC LM Ql (Urine 2+ (*) Via [facility]) [facility] ([id number]) crystals detection in urine sediment by light microscopy on 2017-10-31 Crystals LM Ql NONE (no code) Via [facility] (Urine sed) [facility] ([id number]) complete urinalysis with reflex to culture on 2017-10-31 Complete NO (no code) Via [facility] urinalysis with Hospital reflex to [place] culture ([id number]) casts detection in urine sediment by light microscopy on 2017-10-31 Casts LM Ql NONE (no code) Via [facility] (Urine sed) [facility] ([id number]) bacteria detection in urine sediment by light microscopy on 2017-10-31 Bacteria LM Ql TRACE (no code) Via [facility] (Urine sed) [facility] ([id number]) automated urine sediment leukocyte count by microscopy (number/high power field) on 2017-10-31 WBC LM.HPF no information (no code) Via [facility] #/area (Urine [facility]) [place] ([id number]) automated urine sediment erythrocyte count by microscopy (number/high power field) on 2017-10-31 RBC LM.HPF RARE (no code) Via [facility] #/area (Urine Hospital sed) [place] ([id number]) Vital Signs Vital Sign Value Interpretation Reference Date Time Care Prov ider Facility (Normalized) (Normalized) Range BMI (Body Mass 18.95 kg/m2 (no code) 15 - 25 kg/m2 11-05-2017 Yaz BRENNAN Community Index) 15:20-0400 [id number] [facility] ([id number]) Body 97.9 [degF] (no code) 97.8 - 99.0 11-05-2017 MAY DEAL Community Temperature [degF] 15:20-0400 56447 [facility] ([id number]) Height 162.56 cm (no code) cm 11-05-2017 MAY BRENNAN [facility] 15:20-0400 89640 [facility] ([id number]) Weight 50.08 kg (no code) kg 11-05-2017 MAY BRENNAN [facility] 15:20-[id number] [place] [address] ([id number]) Interventions No Information Plan of Treatment Normalized Care Care Detail Care Activity Date Care Provider F acility Activity Patient Education Ovarian Cyst (DC) no information WISAM NOLAND HEMALATHA [place] Via [address] [place] [address] ([id number]) Patient referral no information no information WISAM DAVALOS R [place] [facility] [address] [place] [address] ([id number]) Goals Patient Goal Desired Goal no information no information Social History Normalized Code Original Code Date Value Tobacco smoking status Tobacco smoking status no information Smokes tobacco daily NHIS NHIS (finding) no information no information 08-12-2015 Denies Use no information no information 12-03-2013 No no information no information 12-28-2018 Denies no information no information 12-28-2018 Current Everyda y Smoker no information no information 12-28-2018 Cigarettes Sex Assigned At Sex Assigned At no information F emale Functional Status The data below is from unstructured sources Query Response Date Ashish rded Patient Orientation Person Place Time February 29, 2016 8:43pm Comprehension Ability Understands Co ncepts February 29, 2016 8:43pm Query Response Date Ashish rded Patient Orientation Person Place Time Situation Normal For Age March 26, 2016 6:59pm Comprehension Ability Understands Co ncepts March 26, 2016 6:59pm Query Response Date Ashish rded Patient Orientation Person Place Time Situation May 07, 2016 7:03pm Comprehension Ability Understands Co ncepts May 07, 2016 7:03pm Query Response Date Ashish rded Patient Orientation Person Place Time Situation May 27, 2016 7:42pm Comprehension Ability Understands Co ncepts May 27, 2016 7:42pm Query Response Date Ashish rded Patient Orientation Person Place Time July 01, 2016 8:14pm Comprehension Ability Understands Co ncepts July 01, 2016 8:14pm Query Response Date Ashish rded Patient Orientation Person Place Time Situation Normal For Age July 06, 2016 1:10pm Comprehension Ability Understands Co ncepts July 06, 2016 1:10pm Query Response Date Ashish rded Patient Orientation Person Place Time Situation January 11, 2015 10:36am Comprehension Ability Understands Co ncepts January 11, 2015 10:36am Query Response Date Ashish rded Patient Orientation Person Place Time Situation August 10, 2015 5:51pm Query Response Date Ashish rded Patient Orientation Person Place Time Situation August 23, 2014 2:16pm Comprehension Ability Understands Co ncepts August 23, 2014 2:16pm Query Response Date Ashish rded Patient Orientation Person Place Time Situation April 01, 2014 8:38am Query Response Date Ashish rded Patient Orientation Person Place Time Situation September 20, 2013 9:58pm Comprehension Ability Understands Co ncepts September 20, 2013 9:58pm Query Response Date Ashish rded Patient Orientation Person Place Time September 27, 2016 9:24am Comprehension Ability Understands Co ncepts September 27, 2016 9:24am Query Response Date Ashish rded Comprehension Ability Understands Co ncepts January 09, 2017 5:30pm Query Response Date Ashish rded Comprehension Ability Understands Co ncepts November 17, 2017 6:39pm Query Response Date Ashish rded Comprehension Ability Understands Co ncepts January 25, 2018 9:03pm Query Response Date Ashish rded Comprehension Ability Understands Co ncepts February 03, 2018 11:43pm Mental Status The data below is from unstructured sourcesNo Mental Status Information Available Encounters Encounter Normalized Encounter Encounter Diagnosis Care Provi sandy Organization Date Type 11-03-2018 Admission to day no information TAAL GONZALEZ Work no organization name - surgery Phone: 11-03-2018 03-13-2019 Emergency department no information JUAN MIGUEL OCONNOR (no [facility] - patient visit phone) [facility] [address] 03-13-2019 (no phone) 12-28-2018 Emergency department no information (no phone) [facility] - patient visit Hospital (no phone) 12-28-2018 12-28-2018 Emergency department no information no name no organization name - patient visit 12-28-2018 08-10-2018 Emergency department no information [facility]CH[facility] ANTOINE ( no no organization name - patient visit phone) 08-10-2018 08-10-2018 Emergency department no information no name no organization name - patient visit 08-10-2018 04-12-2018 Emergency department no information PANCHITO BERNOT ( no no organization name - patient visit phone) 04-12-2018 02-07-2018 Emergency department no information PANCHITO BERNOT ( no no organization name - patient visit phone) 02-07-2018 02-04-2018 Emergency department no information YE BAARJASO Wor k no organization name - patient visit Phone: 02-04-2018 YE Shahid KAIT 01-25-2018 Emergency department no information YE Shahid BARAJASO Wor k no organization name - patient visit Phone: 01-25-2018 YE K KAIT YE K KAIT NEGATED Emergency department no information no name no organization name 12-23-2017 patient visit - 12-23-2017 11-20-2017 Emergency department no information no name no organization name - patient visit 11-20-2017 11-17-2017 Emergency department no information PANCHITO BERNOT ( no no organization name - patient visit phone) 11-17-2017 10-31-2017 Emergency department no information BILLY OLSEN no organization name - patient visit Work Phone: 10-31-2017 BILLY MIRELES 10-26-2017 Emergency department no information PANCHITO BERNOT ( no no organization name - patient visit phone) PANCHITOEMMA NASH T 10-26-2017 (no phone) PANCHITOEMMA ANTOINE (no phone) NEGATED Emergency department no information no name no organization name 08-31-2017 patient visit - 08-31-2017 NEGATED Emergency department no information no name no organization name 02-01-2017 patient visit - 02-01-2017 05-31-2016 Emergency department no information no name no organization name - patient visit 05-31-2016 03-29-2016 Emergency department no information no name no organization name - patient visit 03-29-2016 12-30-2015 Emergency department no information no name no organization name - patient visit 12-30-2015 12-23-2017 Patient encounter no information no name no or ganization name 11-20-2017 Patient encounter no information no name no or ganization name 10-31-2017 Patient encounter no information no name no or ganization name 10-26-2017 Patient encounter no information no name no or ganization name 08-31-2017 Patient encounter no information no name no or ganization name 07-11-2017 Patient encounter no information no name no or ganization name 04-22-2017 Patient encounter no information no name no or ganization name 03-27-2017 Patient encounter no information no name no or ganization name 04-03-2016 Patient encounter no information no name no or ganization name Patient encounter no information no name no organizat ion name 07-27-2019 Patient encounter no information Morgan Tripathi (no phone ) [facility]) [facility] (no phone) 07-20-2019 Patient encounter no information Morgan Tripathi (no phone ) [facility] (no phone) 03-18-2019 Patient encounter no information TALA GONZALEZ DO ( no [facility] procedure phone) [facility] (no phone) 03-13-2019 Patient encounter no information no name no or ganization name procedure 12-28-2018 Patient encounter no information no name no or ganization name procedure 11-03-2018 Patient encounter no information no name no or ganization name procedure 11-03-2018 Patient encounter no information no name no or ganization name - procedure 11-03-2018 10-28-2018 Patient encounter no information TALA GONZALEZ Work no organization name - procedure Phone: 10-28-2018 TALA GONZALEZ 10-28-2018 Patient encounter no information no name no or ganization name - procedure 10-28-2018 08-17-2018 Patient encounter no information no name no or ganization name procedure 08-17-2018 Patient encounter no information no name no or ganization name procedure 08-13-2018 Patient encounter no information no name no or ganization name - procedure 08-13-2018 08-10-2018 Patient encounter no information no name no or ganization name procedure 05-12-2018 Patient encounter no information no name no or ganization name procedure 04-21-2018 Patient encounter no information no name no or ganization name procedure 04-17-2018 Patient encounter no information no name no or ganization name procedure 04-12-2018 Patient encounter no information no name no or ganization name procedure 03-18-2018 Patient encounter no information no name no or ganization name - procedure 03-18-2018 02-04-2018 Patient encounter no information no name no or ganization name procedure 01-25-2018 Patient encounter no information no name no or ganization name procedure 11-11-2016 Patient encounter no information no name no or ganization name procedure 09-27-2016 Patient encounter no information no name no or ganization name procedure 07-01-2016 Patient encounter no information no name no or ganization name procedure 05-31-2016 Patient encounter no information no name no or ganization name procedure 05-27-2016 Patient encounter no information no name no or ganization name procedure 05-07-2016 Patient encounter no information no name no or ganization name procedure 03-29-2016 Patient encounter no information no name no or ganization name procedure 03-26-2016 Patient encounter no information no name no or ganization name procedure 03-20-2016 Patient encounter no information no name no or ganization name - procedure 03-20-2016 03-17-2016 Patient encounter no information no name no or ganization name procedure 03-15-2016 Patient encounter no information no name no or ganization name procedure no information Encounter for other no name no organiz ation name preprocedural examination Medical Equipment The data below is from unstructured sourcesNo Medical Equipment Information available Payers Normalized Payer Value Unknown no information ([id number]) Medicare [id number]) Medicare no information ([id number]) Advance Directives Directive Response Recor ded Date/Time Advance Directives No 7:55pm Health Care Power of Sewage Screen Operator No 08/12/15 7:55pm Organ Donor No 08/12/15 7:55pm Directive Response Recor ded Date/Time Advance Directives No 8:28pm Health Care Power of Sewage Screen Operator No 02/29/16 8:28pm Organ Donor No 02/29/16 8:28pm Resuscitation Status Full Code 02/29/16 8:28pm Directive Response Recor ded Date/Time Advance Directives No 6:59pm Health Care Power of Sewage Screen Operator No 03/26/16 6:59pm Organ Donor No 03/26/16 6:59pm Resuscitation Status Full Code 03/26/16 6:59pm Directive Response Recor ded Date/Time Advance Directives No 7:03pm Health Care Power of Sewage Screen Operator No 05/07/16 7:03pm Organ Donor No 05/07/16 7:03pm Resuscitation Status Full Code 05/07/16 7:03pm Directive Response Recor ded Date/Time Advance Directives No 7:42pm Health Care Power of Sewage Screen Operator No 05/27/16 7:42pm Organ Donor No 05/27/16 7:42pm Resuscitation Status Full Code 05/27/16 7:42pm Directive Response Recor ded Date/Time Advance Directives No 8:14pm Health Care Power of Sewage Screen Operator No 07/01/16 8:14pm Organ Donor No 07/01/16 8:14pm Resuscitation Status Full Code 07/01/16 8:14pm Directive Response Recor ded Date/Time Advance Directives No 1:10pm Health Care Power of Sewage Screen Operator No 07/06/16 1:10pm Organ Donor No 07/06/16 1:10pm Resuscitation Status Full Code 07/06/16 1:10pm Directive Response Recor ded Date/Time Advance Directives No 11:09pm Health Care Power of Sewage Screen Operator No 07/26/15 11:09pm Organ Donor No 07/26/15 11:09pm Resuscitation Status Full Code 07/26/15 11:09pm Directive Response Recor ded Date/Time Advance Directives No 6:25pm Health Care Power of Sewage Screen Operator No 07/08/15 6:25pm Organ Donor No 07/08/15 6:25pm Resuscitation Status Full Code 07/08/15 6:25pm Directive Response Recor ded Date/Time Advance Directives No 10:35am Health Care Power of Sewage Screen Operator No 01/11/15 10:35am Organ Donor No 01/11/15 10:35am Resuscitation Status Full Code 01/11/15 10:35am Directive Response Recor ded Date/Time Advance Directives No 12:25pm Health Care Power of Sewage Screen Operator No 07/19/15 12:25pm Organ Donor No 07/19/15 12:25pm Resuscitation Status Full Code 07/19/15 12:25pm Directive Response Recor ded Date/Time Advance Directives No 9:59pm Health Care Power of Sewage Screen Operator No 07/22/15 9:59pm Organ Donor No 07/22/15 9:59pm Resuscitation Status Full Code 07/22/15 9:59pm Directive Response Recor ded Date/Time Advance Directives No 7:55pm Health Care Power of Sewage Screen Operator No 08/12/15 7:55pm Organ Donor No 08/12/15 7:55pm Resuscitation Status Full Code 08/12/15 7:55pm Directive Response Recor ded Date/Time Advance Directives No 8:29am Health Care Power of Sewage Screen Operator No 08/08/15 8:29am Organ Donor No 08/08/15 8:29am Resuscitation Status Full Code 08/08/15 8:29am Directive Response Recor ded Date/Time Advance Directives No 8:19pm Health Care Power of Sewage Screen Operator No 06/06/15 8:19pm Organ Donor No 06/06/15 8:19pm Resuscitation Status Full Code 06/06/15 8:19pm Directive Response Recor ded Date/Time Advance Directives No 3:44pm Health Care Power of Sewage Screen Operator No 12/03/13 3:44pm Organ Donor No 12/03/13 3:44pm Resuscitation Status Full Code 12/03/13 3:44pm Directive Response Recor ded Date/Time Advance Directives No 2:16pm Health Care Power of Sewage Screen Operator No 08/23/14 2:16pm Organ Donor No 08/23/14 2:16pm Resuscitation Status Full Code 08/23/14 2:16pm Directive Response Recor ded Date/Time Advance Directives No 11:58am Health Care Power of Sewage Screen Operator No 03/10/14 11:58am Organ Donor No 03/10/14 11:58am Resuscitation Status Full Code 03/10/14 11:58am Directive Response Recor ded Date/Time Advance Directives No 8:38am Health Care Power of Sewage Screen Operator No 04/01/14 8:38am Organ Donor No 04/01/14 8:38am Resuscitation Status Full Code 04/01/14 8:38am Directive Response Recor ded Date/Time Advance Directives No 9:50pm Health Care Power of Sewage Screen Operator No 09/20/13 9:50pm Organ Donor No 09/20/13 9:50pm Resuscitation Status Full Code 09/20/13 9:50pm Directive Response Recor ded Date/Time Advance Directives No 4:18pm Health Care Power of Sewage Screen Operator No 02/20/14 4:18pm Organ Donor No 02/20/14 4:18pm Resuscitation Status Full Code 02/20/14 4:18pm Directive Response Recor ded Date/Time Advance Directives No 6:36pm Health Care Power of Sewage Screen Operator No 11/12/13 6:36pm Organ Donor No 11/12/13 6:36pm Resuscitation Status Full Code 11/12/13 6:36pm Directive Response Recor ded Date/Time Advance Directives No 9:24am Health Care Power of Sewage Screen Operator No 09/27/16 9:24am Organ Donor No 09/27/16 9:24am Resuscitation Status Full Code 09/27/16 9:24am Directive Response Recor ded Date/Time Advance Directives No 7:40pm Health Care Power of Sewage Screen Operator No 11/11/16 7:40pm Organ Donor No 11/11/16 7:40pm Resuscitation Status Full Code 11/11/16 7:40pm Directive Response Recor ded Date/Time Advance Directives No 5:30pm Health Care Power of Sewage Screen Operator No 01/09/17 5:30pm Organ Donor No 01/09/17 5:30pm Resuscitation Status Full Code 01/09/17 5:30pm Directive Response Recor ded Date/Time Advance Directives No 9:42pm Health Care Power of Sewage Screen Operator No 01/27/17 9:42pm Organ Donor No 01/27/17 9:42pm Resuscitation Status Full Code 01/27/17 9:42pm Directive Response Recor ded Date/Time Advance Directives No 9:23pm Health Care Power of Sewage Screen Operator No 04/17/17 9:23pm Organ Donor No 04/17/17 9:23pm Resuscitation Status Full Code 04/17/17 9:23pm Directive Response Recor ded Date/Time Advance Directives No 1:30pm Health Care Power of Sewage Screen Operator No 04/22/17 1:30pm Organ Donor No 04/22/17 1:30pm Resuscitation Status Full Code 04/22/17 1:30pm Directive Response Recor ded Date/Time Advance Directives No 8:20pm Health Care Power of Sewage Screen Operator No 07/11/17 8:20pm Organ Donor No 07/11/17 8:20pm Resuscitation Status Full Code 07/11/17 8:20pm Directive Response Recor ded Date/Time Advance Directives No 6:38pm Health Care Power of Sewage Screen Operator No 08/31/17 6:38pm Organ Donor No 08/31/17 6:38pm Directive Response Recor ded Date/Time Advance Directives No 8:11pm Health Care Power of Sewage Screen Operator No 10/31/17 8:11pm Organ Donor No 10/31/17 8:11pm Resuscitation Status Full Code 10/31/17 8:11pm Directive Response Recor ded Date/Time Advance Directives No 6:39pm Health Care Power of Sewage Screen Operator No 11/17/17 6:39pm Organ Donor No 11/17/17 6:39pm Resuscitation Status Full Code 11/17/17 6:39pm Directive Response Recor ded Date/Time Advance Directives No 9:03pm Health Care Power of Sewage Screen Operator No 01/25/18 9:03pm Organ Donor No 01/25/18 9:03pm Resuscitation Status Full Code 01/25/18 9:03pm Directive Response Recor ded Date/Time Advance Directives No 11:43pm Health Care Power of Sewage Screen Operator No 02/03/18 11:43pm Organ Donor No 02/03/18 11:43pm Resuscitation Status Full Code 02/03/18 11:43pm Directive Response Recor ded Date/Time Advance Directives No 5:20pm Health Care Power of Sewage Screen Operator No 02/07/18 5:20pm Organ Donor No 02/07/18 5:20pm Resuscitation Status Full Code 02/07/18 5:20pm Directive Response Recor ded Date/Time Advance Directives No 5:11pm Health Care Power of Sewage Screen Operator No 02/07/18 5:20pm Organ Donor No 02/07/18 5:20pm Resuscitation Status Full Code 04/12/18 5:11pm Directive Response Recor ded Date/Time Advance Directives No 7:29pm Health Care Power of Sewage Screen Operator No 08/10/18 7:29pm Organ Donor No 08/10/18 7:29pm Resuscitation Status Full Code 08/10/18 7:29pm Directive Response Recor ded Date/Time Advance Directives No 10:09am Health Care Power of Sewage Screen Operator No 10/28/18 10:09am Organ Donor No 10/28/18 10:09am Resuscitation Status Full Code 10/28/18 10:09am Directive Response Recor ded Date/Time Advance Directives No 9:38am Health Care Power of Sewage Screen Operator No 11/03/18 9:38am Organ Donor No 11/03/18 9:38am Resuscitation Status Full Code 11/03/18 9:38am Advance Directive Response Recorded Date/Time Advance Directives No Oc 2018 1:16pm Health Care Power of Sewage Screen Operator No December 28, 2018 1:16pm Organ Donor No December 092018 1:16pm Resuscitation Status Full Code December 28, 2018 1:16pm Discharge Instructions No hospital discharge instructions.No hospital discharge instructions.No hospital discharge instructions.No hospital discharge instructions.No hospital discharge instructions.No hospital discharge instructions.No hospital discharge instructions.No hospital discharge instruction information available.No hospital discharge instruction information available.No hospital discharge instructions.No hospital discharge instructions.No hospital discharge instructions.No hospital discharge instructions.No hospital discharge instructions.No hospital discharge instru ctions. Patient Instructions Physician Instructions New, Converted or Re-Newed RX: RX on Chart Additional Follow Up: Yes Orders/Referrals Dr. Gonzalez in 6 weeks Activity: Activity as Tolerated Driving Instructions: No Driving for 1 Week NO SMOKING: NO SMOKING Nothing Inside Vagina: No Douching, No Ono, No Tampons Discharge Diet: No Restrictions Symptoms to Report to DrJustyna: Bleeding Excessive, Pain Increased, Fever Over 101 Degrees F, Vaginal Bleeding Increase, Questions/Concerns For Any Problems or Questions: Contact Your Physician Bathing Instructions: Shower (x 2-3 weeks) No hospital discharge instructions.No hospital discharge instructions.No hospital discharge instructions.No hospital discharge instructions.No hospital discharge instructions.No hospital discharge instructions.No hospital discharge instructions.No hospital discharge instructions.No hospital discharge instruction information available.No hospital discharge instruction information available.No hospital discharge instruction information available.No hospital discharge instruction information available.No hospital discharge instruction information available.No hospital discharge instruction information available.No hospital discharge instruction information available.No hospital discharge instruction information available.No hospital discharge instruction information available.No hospital discharge instruction information available.No hospital discharge instruction information available.No hospital discharge instruction information available.No hospital discharge instruction information available.No hospital discharge instruction information available.No hospital discharge instruction information available.No hospital discharge instruction information available.No hospital discharge instruction information available. Chief Complaint and Reason for Visit Chief Complaint Head/Cervical Proble ms Reason for Visit Migraine Headache Chief Complaint Head/Cervical Proble ms Reason for Visit [id number] Chief Complaint Neurological Problem s Reason for Visit [id number] REPORTED SEIZURE-LIKE ACTIVITY-NEW ONSET Chief Complaint Abdominal/GI Problem s Reason for Visit Viral gastroenterit is Nausea and vomiting Chief Complaint Dental Problems/Pain Reason for Visit [id number] Dental caries extending into dentine Chief Complaint Respiratory Problems Reason for Visit Community acquired pneumonia Chief Complaint Abdominal/GI Problem s Reason for Visit [id number] Assessments No Assessments Information Available Additional Source Comments This clinical document has been generated using [employer] software that has been certified by the Office of the National Coordinator for Health Information Technology (ONC 15.99.04.3023.Diam.[id number]) and the National Committee for Web Merchant (NCQA, as an eMeasure certified technology). FOR RECORDS PERTAINING TO PATIENTS WHO ARE OR HAVE BEEN ENROLLED IN A CHEMICAL D EPENDENCY/SUBSTANCE ABUSE PROGRAM, SOME INFORMATION MAY BE OMITTED. This clinica l summary was aggregated from multiple sources. Caution should be exercised in using it in the provision of clinical care. This summary normalizes information from multiple sources, and as a consequence, information in this document may ma terially change the coding, format and clinical context of patient data. In shawanda tion, data may be omitted in some cases. CLINICAL DECISIONS SHOULD BE BASED ON T HE PRIMARY CLINICAL RECORDS. [employer] provides no warranty or guara ntee of the accuracy or completeness of information in this document.The followi ng information is based on time limited clinical information UNRECOGNIZED CONTENT PROVIDED BELOW FOR UNRECOGNIZED SECTION REASON FOR VISIT [id number] UNRECOGNIZED CONTENT PROVIDED BELOW FOR UNRECOGNIZED SECTION MEDICAL (GENERAL) HISTORY Type Description Date Medical [...]
--- OUTSIDE RECORDS SUMMARY | 2019-08-08 15:45 | XMS REPORT ---
Author Author Meli BENITEZ Organization [facility] Address [address] [place] [address] Care Team Providers Care Connection Worker Name Role Phone URIEL BENITEZ Unavailable PROBLEMS Type Condition ICD9-CM Code [id number] Code Onset Dates Condition S tatus SNOMED Code Problem Other, multiple, and unspeci fied sites, insect bite, nonvenomous, without mention of infection 919.4 Active 719807551 Problem Acute bronchitis 466.0 Active 105 78063 Problem Depression, major, recurrent, moderate F33.1 Active 310236144 Problem Seasonal allergic rhinitis due to pollen J30.1 Active 25848107 Problem Acute sinusitis, unspecified 461.9 A ctive 51340076 Problem External hemorrhoids without mention of complication 455.3 Active 75835457 Problem Tension headache 307.81 Active 398 527619 Problem Dysthymic disorder 300.4 Active 7 5357614 ALLERGIES No Information ENCOUNTERS Encounter Location Date Diagnosis [facility] [address] [id number] [place] [phone] July, [facility] [id number] [place] [phone] July, [facility] [id number] [place] [phone] July, [facility] [id number] [place] [phone] Jun, Acute non-recurrent frontal sinusitis J01.10 and Seasonal allergic rhinitis due to pollen J30.1 [facility] [address] [id number] [address] [place] [phone] Jun, [facility] [address] [facility] [id number] [address] [place] [phone] Apr, Dental examination Z01.20 [facility] [address] [id number] [address] [place] [address] [id number] 08 Apr, 2018 Caries K02.9 [facility] [address] [id number] [address] [place] [id number] 04 Apr, 2018 Caries K02.9 and Dental exam ination Z01.20 [facility] [address] [id number] [address] [place] [phone] Oct, Depression, major, recurrent , moderate F33.1 [facility] [address] [id number] [address] [place] [phone] Nov, Dental examination Z01.20 [facility] [address] [id number] [address] [place] [phone] 14 Jun, 2014 [facility] [address] [id number] [address] [place] [phone] Jun, [facility] [address] [id number] [address] [place] [phone] 14 Apr, 2012 [facility] [address] [id number] [address] [place] [phone] Jan, [facility] [address] [id number] [address] [place] [phone] Jan, [facility] [address] [id number] [address] [place] [phone] Dec, [facility] [address] [id number] [address] [place] [phone] 27 Nov, 2011 [facility] [address] [id number] [address] [place] [phone] Nov, [facility] [address] [id number] [address] [place] [phone] Oct, [facility] [address] [id number] [address] [place] [phone] Oct, [facility] [address] [id number] [address] [place] [phone] Oct, [facility] [address] [id number] [address] [place] [phone] Oct, [facility] [address] [id number] [address] [place] [phone] Oct, [facility] [address] [id number] [address] [place] [phone] Aug, [facility] [address] [id number] [address] [place] [phone] Aug, [facility] [address] [id number] [address] [place] [phone] July, [facility] [address] [id number] [address] [place] [phone] July, [facility] [address] [id number] [address] [place] [phone] July, [facility] [address] [id number] [address] [place] [phone] July, [facility] [address] [id number] [address] [place] [phone] Jun, [facility] [address] [id number] [address] [place] [phone] Jun, [facility] [address] [id number] [address] [place] [phone] Jun, [facility] [address] [id number] [address] [place] [phone] May, [facility] [address] [id number] [address] [place] [phone] Feb, IMMUNIZATIONS No Known Immunizations SOCIAL HISTORY Never Assessed REASON FOR VISIT PLAN OF CARE VITAL SIGNS Height 64 in 2011-08-26 Weight 139.3 lbs 2011-08-26 Temperature 98.7 degrees Fahrenheit 2011-08-26 Heart Rate 100 bpm 2011-08-26 Respiratory Rate 20 2011-08-26 Blood pressure systolic 110 mmHg 2011-08-26 Blood pressure diastolic 82 mmHg 2011-08-26 MEDICATIONS Unknown Medications RESULTS No Results PROCEDURES [...]
--- OUTSIDE RECORDS SUMMARY | 2019-08-08 15:45 | XMS REPORT | Encounter Summary ---
Author Author [facility] Organization [facility] Address Unknown Phone Unavailable Care Team Providers Care Assistant Offset Press Operator Name Role Phone Tami Cole MD Unavailable No Pcp, Na PCP Unavailable Reason for Visit * Reason Comments Medication Refill Encounter Details Care Team Description Date Type Department Sera Workman MD [address] [place] [address] 06/03/2019 Refill [facility] [address] [place] [address] Social History Date Tobacco Use Types Packs/Day Years Used Current Every Day Smoker Cigarettes 0.25 4 Smokeless Tobacco: Never Used Drinks/Week oz/Week Comments Alcohol Use No Sex Assigned at Date Recorded Not on file Industry Job Start Date Occupation Not on file Not on file Not on file Travel End Travel History Travel Start No recent travel history available. documented as of this encounter Plan of Treatment Not on filedocumented as of this encounter Visit Diagnoses Not on filedocumented in this encounter
--- OUTSIDE RECORDS SUMMARY | 2019-08-08 15:45 | XMS REPORT | Encounter Summary ---
Author Author [facility] Organization [facility] Address Unknown Phone Unavailable Care Team Providers Care Account Service Associate Name Role Phone Tami Cole MD Unavailable No Pcp, Na PCP Unavailable Reason for Visit * Reason Comments Migraine Encounter Details Care Team Description Date Type Department Sera Workman MD [address] [place] [id number] Migraine without aura, intractable (Prim marilu Dx) 07/29/2019 Scheduled [email or web address] [address] [place] [address] Social History Date Tobacco Use [...] of this encounter Last Filed Vital Signs Reading Time Taken Comments Vital Sign - - Blood Pressure - - Pulse - - Temperature - - Respiratory Rate - - Oxygen Saturation - - Inhaled Oxygen Concentration 53.5 kg (118 lb) 07/29/2019 1:51 PM CDT PER PATIENT Weight 162.6 cm (5' 4") 07/29/2019 1:51 PM CDT PER PATIENT Height 20.25 07/29/2019 1:51 PM CDT Body Mass Index documented in this encounter Progress Notes * Michael Cavanaugh MD - 07/29/2019 2:00 PM CDT I have personally interviewed Meli Barros and reviewed the history, impr ession, and plan of care as outlined by Dr.Daniah Ji MD. I personally part icipated in patient counseling and coordination of care. I agree with the asses sment and plan as documented by Dr. Sera Workman MD. * Sera Workman MD - 07/29/2019 2:00 PM CDT Date of Service: 07/29/2019 Subjective: Obtained patient's verbal consent to treat them and their agreement to [facility] lomeli policy and NPP via this telehealth visit during the Coronavirus Public Health Emergency Meli Barros is a 29 y.o. female. Being followed for migraines History of Present Illness She feels her migraines have not improved. She thinks the amiovig is helping a l ittle bit but she still does not have adequate control. Amiovig has decreased th e frequency of her DELAROSA but has not helped with severity. She is having DELAROSA 3-4 donny es a week, rated 7/10 lasting a day to a week. She is taking tizanidine 4mg ever y other day at night since she feels her migraines start in the neck and this he lps initially but once the effect wears off she starts hurting again. She is cur rently unemployed because of her DELAROSA. She wanted to go to college to get her degr ee but was unable to do so. She tried taking 25mg nortryptyline for 2 months and started having nightmares and fatigue so she stopped taking. She is taking magn esium and riboflavin daily. Meds tried in the past: Amytriplyline (could not tolerate side effect of sleepin ess), nortriptyline (did well), topiramate, propranolol in the past. Has tried S phenocath and botox in the past as well without much relief. Has tried Depakote in the past but stopped due to side effect of gaining weight. Social history, FH, PMH, SH and medications reviewed; no changes since prior Review of Systems HENT: Positive for congestion, sinus pressure, sinus pain and sneezing. Eyes: Positive for photophobia and visual disturbance. Eye redness: Respiratory: Positive for shortness of breath. Gastrointestinal: Positive for abdominal pain. Endocrine: Positive for heat intolerance. Genitourinary: Positive for frequency and urgency. Musculoskeletal: Positive for arthralgias and back pain. Allergic/Immunologic: Positive for environmental allergies. Neurological: Positive for dizziness, numbness and headaches. Psychiatric/Behavioral: Positive for sleep disturbance. The patient is nervous/a nxious. All other systems reviewed and are negative. Objective: ACETAMINOPHEN-CAFFEINE PO Take by mouth. Indications: 50-325-40 mg as direc malia ALPRAZolam (XANAX) 0.25 mg tablet Take 1 mg by mouth every 8 hours as needed . One-two tabs every 8 hrs if needed aspirin/acetaminophen/caffeine (EXCEDRIN MIGRAINE) 250/250/65 mg tab Take 1 tablet by mouth as Needed. bacitracin 500 unit/g pack Apply topically to affected area twice daily. DULoxetine DR (CYMBALTA) 60 mg capsule Take 60 mg by mouth daily. elagolix (ORILISSA) 200 mg tab Take by mouth twice daily. erenumab-aooe (AIMOVIG AUTOINJECTOR) 140 mg/mL injection Inject 1 mL under t he skin every 30 days. ibuprofen (MOTRIN) 600 mg tablet Take 600 mg by mouth every 6 hours as neede d for Pain. Take with food. intrauterine copper contraceptive (PARAGARD) 380 square mm intrauterine henri ce 1 Intra Uterine Device by Intrauterine route once. nortriptyline (PAMELOR) 25 mg capsule Take one capsule by mouth at bedtime d aily. omeprazole(+) (PRILOSEC) 10 mg capsule Take 20 mg by mouth daily before anita kfast. ondansetron (ZOFRAN) 4 mg tablet Take 4 mg by mouth daily as needed. Subling ual daily oxybutynin XL (DITROPAN XL) 5 mg tablet Take 5 mg by mouth daily. pentosan polysulfate sodium (ELMIRON) 100 mg capsule Take 1 capsule by mouth three times daily. Take w/ water 1 hr before or 2 hrs after meals phenazopyridine (PYRIDIUM) 200 mg tablet Take 200 mg by mouth three times da beka as needed for Pain. Take after meals for up to 2 days. tiZANidine (ZANAFLEX) 4 mg tablet Take 4 mg by mouth every 6 hours as needed . venlafaxine XR (EFFEXOR XR) 37.5 mg capsule Take one capsule by mouth daily. Take with food. Vitals: 07/29/19 1351 Weight: 53.5 kg (118 lb) Height: 162.6 cm (64") PainSc: Eight Body mass index is 20.25 kg/m. Assessment and Plan: Problem Migraine Without Aura, Intractable 27 yof followed for refractory migraines which she reports were intially improv ing on aimovig but stopped helping as much lately. She was experiencing DELAROSA almos t daily, and only has 1-2 DELAROSA free days in a month on amovig 70 At her lat visit, we increased amiovig to 140 and added nortriptyline 50 QHS. Sh e felt the increased dose of aimovig helped reduce frequency of DELAROSA but not the s everity. She stopped taking nortriptyline due to reported side effect of nightma res and fatigue Migraine without aura, intractable -Start venlafaxine 37.5mg daily for 1 week then increase to 35.7 BID after -Stop Nortriptyline (patient stopped taking 4 months ago due to side effects) -Continue aimovig 140mg -Continue Riboflavin and Magnesium -Counseled on good sleep and DELAROSA hygiene and risk of medication overuse DELAROSA with P RN medications like tizanidine that the patient is using frequently Patient discussed with Dr. Cavanaugh. Total time spent on phone: 30 mins, total donny e spent coordinating care: 45 mins documented in this encounter Miscellaneous Notes * Addendum Note - Michael Cavanaugh MD - 07/29/2019 2:00 PM CDT Addended by: REYNA CAVANAUGH on: 08/06/2019 11:08 AM Modules accepted: Level of Service documented in this encounter Plan of Treatment Not on filedocumented as of this encounter Visit Diagnoses Diagnosis Migraine without aura, intractable Migraine without aura, with intractable migraine, so stated, without mention of status migrainosus * Assessment & Plan Note - Sera Workman MD - 07/29/2019 2:43 PM CDT Associated Problem(s): Migraine without aura, intractable -Start venlafaxine 37.5mg daily for 1 week then increase to 35.7 BID after -Stop Nortriptyline (patient stopped taking 4 months ago due to side effects) -Continue aimovig 140mg -Continue Riboflavin and Magnesium -Counseled on good sleep and DELAROSA hygiene and risk of medication overuse DELAROSA with P RN medications like tizanidine that the patient is using frequently documented in this encounter
--- OUTSIDE RECORDS SUMMARY | 2019-08-08 15:45 | XMS REPORT | Clinical Summary ---
Author Author [facility] Organization [facility] Address Unknown Phone Unavailable Care Team Providers Care Experimental Assembler Name Role Phone Tami Cole MD Unavailable No Pcp, Na PCP Unavailable Source Comments Some departments are not documenting in the electronic medical record. If you d o not see the information that you expected, contact Release of Information in [facility] [employer] Information Management department at [phone] for further assistan ce in locating additional records.[facility] Allergies Comments Active Allergy Reactions Severity Noted Date Numbness,weakness Gabapentin SEE COMMENTS Low 12/05/2016 Sumatriptan Succinate ANAPHYLAXIS High 05/02/19 17 Penicillins HIVES 12/30/2012 Swollen throat Sumatriptan-Naproxen SWOLLEN [...] pentosan polysulfate Take 1 270 capsule 3 06/05 sodium (ELMIRON) 100 mg capsule by 8 capsuleIndications: mouth three Interstitial cystitis times daily. Take w/ water 1 hr before or 2 hrs after meals Active bacitracin 500 unit/g Apply 0 pack topically to affected area twice daily. Active elagolix (ORILISSA) 200 Take by 0 mg tab mouth twice daily. Active phenazopyridine Take 200 mg 0 (PYRIDIUM) 200 mg tablet by mouth three times daily as needed for Pain. Take after meals for up to 2 days. Active oxybutynin XL (DITROPAN Take 5 mg by 0 XL) 5 mg tablet mouth daily. Active nortriptyline (PAMELOR) Take one 30 capsule 5 25 mg capsule capsule by 9 mouth at bedtime daily. Active erenumab-aooe (AIMOVIG Inject 1 mL 1 mL 3 AUTOINJECTOR) 140 mg/mL under the 0 injection skin every 30 days. Active tiZANidine (ZANAFLEX) 4 Take 4 mg by 0 mg tablet mouth every 6 hours as needed. Active aspirin/acetaminophen/caf Take 1 tablet 0 feine (EXCEDRIN MIGRAINE) by mouth as 250/250/65 mg tab Needed. Active ibuprofen (MOTRIN) 600 mg Take 600 mg 0 tablet by mouth every 6 hours as needed for Pain. Take with food. Active venlafaxine XR (EFFEXOR Take one 30 capsule 5 XR) 37.5 mg capsule capsule by 0 mouth daily. Take with food. Active Problems Problem Noted Date Interstitial cystitis 05/21/2016 Overview: 05/21/16 OPERATIVE PROCEDURE: Cystoscopy , panendoscopy, bladder wash cytology, bladder hydrodistention under [...] mass, lymphadenopathy, or ascites. 05/21/16 OPERATIVE PROCEDURE: Cystoscopy , panendoscopy, bladder wash cytology, bladder hydrodistention under [...] soda Trial of Elmiron ~ reviewed side effect s and dosing FU 6 months Migraine without aura, intractable 12/30/2012 Overview: 27 yof followed for refractory migraine s which she reports were intially improving on aimovig but stopped helpin g as much lately. She was experiencing DELAROSA almost daily, and only has 1-2 DELAROSA free days in a month on amovig 70 At her lat visit, we increased amiovig to 140 and added nortriptyline 50 QHS. She felt the increased dose of aim ovig helped reduce frequency of DELAROSA but not the severity. She stopped takin g nortriptyline due to reported side effect of nightmares and fatigue L ast Assessment & Plan: -Start venlafaxine 37.5mg daily for 1 w [place] then increase to 35.7 BID after -Stop Nortriptyline (patient stopped ta toshia 4 months ago due to side effects) -Continue aimovig 140mg -Continue Riboflavin and Magnesium -Counseled on good sleep and DELAROSA hygiene and risk of medication overuse DELAROSA with PRN medications like tizanidine th at the patient is using frequently Chronic daily headache 12/30/2012 Obesity 12/30/2012 Anxiety and depression 12/30/2012 Tobacco use 12/30/2012 Encounters Care Team Description Date Type Specialty Sera Workman MD Migraine without aura, intractable (Prim marilu Dx) 07/29/2019 Scheduled Neurology Telephone Sera Workman MD 06/03/2019 Refill Neurology from Last 3 Months Family History Medical History Relation Name Comments Diabetes Other Hypertension Other Stroke Other Urologic Problems Other Stroke Paternal Grandfather Stroke Paternal Grandmother Relation Name Status Comments Other Paternal Grandfather Paternal Grandmother Social History Date Tobacco Use Types Packs/Day Years Used Current Every Day Smoker Cigarettes 0.25 4 Smokeless Tobacco: Never Used Tobacco Cessation: Ready to Quit: No Drinks/Week oz/Week Comments Alcohol Use No Sex Assigned at Date Recorded Not on file Industry Job Start Date Occupation Not on file Not on file Not on file Travel End Travel History Travel Start No recent travel history available. Last Filed Vital Signs Reading Time Taken Comments Vital Sign 109/75 11/26/2018 3:16 PM CDT Blood Pressure 63 11/26/2018 3:16 PM CDT Pulse 36.9 C (98.4 F) 05/21/2016 3:00 PM CDT Temperature 16 07/10/2017 10:28 AM CDT Respiratory Rate 100% 05/21/2016 3:00 PM CDT Oxygen Saturation - - Inhaled Oxygen Concentration 53.5 kg (118 lb) 07/29/2019 1:51 PM CDT PER PATIENT Weight 162.6 cm (5' 4") 07/29/2019 1:51 PM CDT PER PATIENT Height 20.25 07/29/2019 1:51 PM CDT Body Mass Index Plan of Treatment Health Maintenance Due Date Last Done Comments MEDICARE ANNUAL WELLNESS 1992 VISIT HIV SCREENING 06/19/2007 DTAP/TDAP VACCINES (1 - 2010 Tdap) HEPATITIS C SCREENING 2010 PHYSICAL (COMPREHENSIVE) 2010 EXAM CERVICAL CANCER SCREENING 2013 INFLUENZA VACCINE 12/09/2019 01/20/2008, 01/11/2005, 12/29/2003 HPV VACCINES Completed 03/31/2007, 11/16/2006, 09/07/2006 Results Not on filefrom Last 3 Months Insurance Type Payer Benefit Subscriber ID Effective Phone Address Plan / Dates Group Medicare MEDICARE MEDICARE xxxxxxxxxxx 2012-P PART A AND resent B Medicaid [employer] [employer] xxxxxxxxxxx 2010- STATE Present HEALTH Advance Directives Patient Regional Trainer Explanation Type Date Recorded Advance 05/21/2016 11:48 AM Directive/DPOA
--- OUTSIDE RECORDS SUMMARY | 2019-08-08 15:49 | XMS REPORT | Continuity of Care Document ---
Author Organization Unknown Address Unknown Phone Unavailable Allergies Active Description Code Type Severity Reaction Onset Reported/Identified Relationship to Patient Clinical Status Yes naproxen sodium [id number] D rug Allergy Mild N/A 04/01/2011 Yes sumatriptan succinate [id number] Drug Allergy Mild N/A 04/01/2011 Yes Penicillins Drug Allergy 07/02/2011 Yes Treximet Drug Allergy 07/02/2011 Yes sumatriptan [id number] Drug Aller gy Severe ANAPHYLAXIS 09/20/2013 Yes Penicillins [id number] Drug Aller gy Unknown N/A 09/20/2013 Yes gabapentin [id number] Drug Allerg y Severe WEAKNESS 08/13/2018 Yes Penicillins [id number] Drug Aller gy Mild HIVES 08/13/2018 Medications There is no data. Problems Date Dx Coded Attending Type Code Diagnosis Diagnosed By 07/02/2011 300.4 DYST HYMIC DISORDER 07/02/2011 URIEL BENITEZ APRN 300.4 DYSTHYMIC DISORDER 08/26/2011 466.0 ACUT E BRONCHITIS 08/26/2011 URIEL BENITEZ APRN 466.0 ACUTE BRONCHITIS 09/03/2011 455.3 EXTE RNAL HEMORRHOIDS WITHOUT COMPLICATION 09/03/2011 461.9 ACUT E SINUSITIS UNSPECIFIED 09/03/2011 URIEL BENITEZ APRN 455.3 EXTERNAL HEMORRHOIDS WITHOUT COMPLICATION 09/03/2011 URIEL BENITEZ APRN 461.9 ACUTE SINUSITIS UNSPECIFIED 10/14/2011 307.81 TEN GEORGETTE HEADACHE 10/14/2011 URIEL BENITEZ APRN 307.81 TENSION HEADACHE 10/23/[address] BITE NONVENOMOUS OF OTHER MULTIPLE AND UNSPECIFIED SITES WITHOUT INFECTION 10/23/2011 URIEL BENITEZ APRN 919.4 INSECT BITE NONVENOMOUS OF OTHER MULTIPL E AND UNSPECIFIED SITES WITHOUT INFECTION 07/27/2013 JUAN MIGUEL JIMENEZ EQUINE BREEDER Ot 780 .2 11/12/2013 JUAN MIGUEL JIMENEZ APRN Ot 112 .1 11/12/2013 JUAN MIGUEL JIMENEZ APRN Ot 782 .0 12/03/2013 JENNIFER ROSAS Ot 599.0 URIN TRACT INFECTION NOS 12/03/2013 JENNIFER ROSAS Ot 789.00 ABDOMINAL PAIN, UNSPECIFIED SITE 12/03/2013 JENNIFER ROSAS Ot V72.41 EXAMINATION OR TEST, NEGATIVE 02/20/2014 JUAN MIGUEL JIMENEZ EQUINE BREEDER Ot 695.89 ERYTHEMATOUS COND NEC 02/20/2014 JUAN MIGUEL JIMENEZ APRN Ot 782 .1 NONSPECIF SKIN ERUPT NEC 03/10/2014 ALINE YUN, BILLY Roy Ot 599.0 URIN TRACT INFECTION NOS 03/10/2014 ALINE YUN, BILLY Roy Ot 788.1 DYSURIA 04/01/2014 ZAHRA YUN, IONA K Ot 346.90 MIGRAINE UNSPECIFIED W/O INTRACT MGRN W08/23/2014 JENNIFER ROSAS Ot 346.90 MIGRAINE UNSPECIFIED W/O INTRACT MGRN W08/23/2014 JENNIFER ROSAS Ot 724.2 LUMBAGO 08/23/2014 JENNIFER ROSAS Ot 788.1 DYSURIA 01/11/2015 JUAN MIGUEL JIMENEZ APRN Ot F17.211 NICOTINE DEPENDENCE, CIGARETTES, IN JOHN 01/11/2015 JUAN MIGUEL JIMENEZ APRN Ot R55 SYNCOPE AND COLLAPSE 01/11/2015 JUAN MIGUEL JIMENEZ APRN Ot Z33 .1 STATE, INCIDENTAL 01/11/2015 JUAN MIGUEL JIMENEZ APRN Ot Z3A.09 9 WEEKS GESTATION OF 01/11/2015 JUAN MIGUEL JIMENEZ APRN Ot Z73 .3 STRESS, NOT ELSEWHERE CLASSIFIED 06/06/2015 TALA GONZALEZ DO Ot O99.8 9 OTH DISEASES AND CONDITIONS COMPL PREG/C 06/06/2015 TALA GONZALEZ DO Ot R10.3 3 PERIUMBILICAL PAIN 06/06/2015 TALA GONZALEZ DO Ot Z3A.3 0 30 WEEKS GESTATION OF 07/08/2015 ZEINAB YUN, LUIS A Allen Ot O23. 43 UNSP INFCT OF URINARY TRACT IN 07/08/2015 LUIS A ARRIOLA MD Ot Z3A. 35 35 WEEKS GESTATION OF 07/17/2015 ZEINAB YUN, LUIS A Allen Ot O23. 43 UNSP INFCT OF URINARY TRACT IN 07/17/2015 LUIS A ARRIOLA MD Ot Z3A. 35 35 WEEKS GESTATION OF 07/19/2015 LUIS A ARRIOLA MD Ot O60. 03 LABOR WITHOUT DELIVERY, THIRD TR 07/19/2015 LUIS A ARRIOLA MD Ot Z3A. 36 36 WEEKS GESTATION OF 07/22/2015 LISA QUINTANA TALA C Ot O47.1 FALSE LABOR AT OR AFTER 37 COMPLETED WEE 07/22/2015 GONZALEZ DO TALA C Ot Z3A.3 7 37 WEEKS GESTATION OF 07/26/2015 GONZALEZ DO TALA C Ot O47.1 FALSE LABOR AT OR AFTER 37 COMPLETED WEE 07/26/2015 LISA QUINTANA TALA C Ot Z3A.3 7 37 WEEKS GESTATION OF 07/27/2015 LUIS A ARRIOLA MD Ot O60. 03 LABOR WITHOUT DELIVERY, THIRD TR 07/27/2015 LUIS A ARRIOLA MD N Ot Z3A. 36 36 WEEKS GESTATION OF 08/04/2015 GONZALEZ DO TALA C Ot O47.1 FALSE LABOR AT OR AFTER 37 COMPLETED WEE 08/04/2015 GONZALEZ DO TALA C Ot Z3A.3 7 37 WEEKS GESTATION OF 08/10/2015 LISA QUINTANA TALA C Ot D62 ACUTE POSTHEMORRHAGIC ANEMIA 08/10/2015 LISA QUINTANA TALA C Ot O70.2 THIRD DEGREE PERINEAL LACERATION DURING 08/10/2015 LISA DO TALA C Ot O76 ABNLT IN HEART RATE AND RHYTHM COM 08/10/2015 LISA QUINTANA TALA C Ot O90.8 1 ANEMIA OF THE PUERPERIUM 08/10/2015 IPA GONZALEZ DOA C Ot Z23 ENCOUNTER FOR IMMUNIZATION 08/10/2015 LISA QUINTANA TALA C Ot Z37.0 SINGLE LIVE 08/10/2015 PIA GONZALEZ DOA C Ot Z3A.3 9 39 WEEKS GESTATION OF 08/12/2015 ASHLEY YUN, SIMON Valdes Ot F17.210 NICOTINE DEPENDENCE, CIGARETTES, UNCOMPL 08/12/2015 SIMON RAMIREZ MD A Ot N39. 0 URINARY TRACT INFECTION, SITE NOT SPECIF 08/14/2015 ASHLEY YUN, SIMON Valdes Ot F17.210 NICOTINE DEPENDENCE, CIGARETTES, UNCOMPL 08/14/2015 ASHLEY YUN, SIMON A Ot N39. 0 URINARY TRACT INFECTION, SITE NOT SPECIF 11/12/2015 DONTE YUN, CHRISTOPHE Madsen Ot J02.9 ACUTE PHARYNGITIS, UNSPECIFIED 11/12/2015 DONTE YUN, CHRISTOPHE T Ot J06.9 ACUTE UPPER RESPIRATORY INFECTION, UNSPE 11/12/2015 DONTE YUN, CHRISTOPHE Madsen Ot N39.0 URINARY TRACT INFECTION, SITE NOT SPECIF 11/29/2015 ALINE YUN, BILLY Roy Ot K59.00 CONSTIPATION, UNSPECIFIED 11/29/2015 ALINE YUN, BILLY Roy Ot R10.9 UNSPECIFIED ABDOMINAL PAIN 11/29/2015 ALINE YUN, BILLY Roy Ot R30.0 DYSURIA 12/30/2015 BRYCE, STACEY ROLL FORMING MACHINE OPERATOR Ot F17.210 NICOTINE DEPENDENCE, CIGARETTES, UNCOMPL 12/30/2015 BRYCE, STACEY ROLL FORMING MACHINE OPERATOR Ot G43.909 MIGRAINE, UNSP, NOT INTRACTABLE, WITHOUT 12/30/2015 BRYCE, STACEY ROLL FORMING MACHINE OPERATOR Ot R51 HEADACHE 12/30/2015 BRYCE, STACEY ROLL FORMING MACHINE OPERATOR Ot Z79.899 OTHER STAKES PLAYER (CURRENT) DRUG THERAPY 01/01/2016 BRYCE, STACEY ROLL FORMING MACHINE OPERATOR Ot F17.210 NICOTINE DEPENDENCE, CIGARETTES, UNCOMPL 01/01/2016 BRYCE, STACEY ROLL FORMING MACHINE OPERATOR Ot G43.909 MIGRAINE, UNSP, NOT INTRACTABLE, WITHOUT 01/01/2016 BRYCE, STACEY ROLL FORMING MACHINE OPERATOR Ot R51 HEADACHE 01/01/2016 BRYCE, STACEY ROLL FORMING MACHINE OPERATOR Ot Z79.899 OTHER STAKES PLAYER (CURRENT) DRUG THERAPY 02/29/2016 JIMENEZJUAN MIGUEL MENDEZ EQUINE BREEDER Ot R51 HEADACHE 03/01/2016 JUAN MIGUEL JIMENEZ EQUINE BREEDER Ot R51 HEADACHE 03/15/2016 JUAN MIGUEL JIMENEZ EQUINE BREEDER Ot G43.909 MIGRAINE, UNSP, NOT INTRACTABLE, WITHOUT 03/15/2016 JUAN MIGUEL JIMENEZ EQUINE BREEDER Ot R51 HEADACHE 03/17/2016 FADI DAVE MD Ot F17.210 NICOTINE DEPENDENCE, CIGARETTES, UNCOMPL 03/17/2016 TENZIN YUN, FADI Bennett Ot G43.909 MIGRAINE, UNSP, NOT INTRACTABLE, WITHOUT 03/18/2016 JUAN MIGUEL JIMENEZ APRN Ot G43.909 MIGRAINE, UNSP, NOT INTRACTABLE, WITHOUT 03/18/2016 JUAN MIGUEL JIMENEZ APRN Ot R51 HEADACHE 03/18/2016 TENZIN YUN, FADI Bennett Ot F17.210 NICOTINE DEPENDENCE, CIGARETTES, UNCOMPL 03/18/2016 TENZIN YUN, FADI Sabrina Ot G43.909 MIGRAINE, UNSP, NOT INTRACTABLE, WITHOUT 03/20/2016 Yesica Mg 668.81 OTHER COMPLICATIONS OF ANESTHESIA OR OTHER SEDATION IN LABOR AND DELIVERY, DELIVERED, WITH OR WITHOUT MENTION OF ANTEPARTUM CONDITION 03/20/2016 Yesica Mg R51 HEADACHE 03/26/2016 JENNIFER ROSAS Ot F17.210 NICOTINE DEPENDENCE, CIGARETTES, UNCOMPL 03/26/2016 JENNIFER ROSAS Ot G43.909 MIGRAINE, UNSP, NOT INTRACTABLE, WITHOUT 03/27/2016 JENNIFER ROSAS Ot F17.210 NICOTINE DEPENDENCE, CIGARETTES, UNCOMPL 03/27/2016 JENNIFER ROSAS Ot G43.909 MIGRAINE, UNSP, NOT INTRACTABLE, WITHOUT 03/28/2016 JENNIFER ROSAS Ot F17.210 NICOTINE DEPENDENCE, CIGARETTES, UNCOMPL 03/28/2016 JENNIFER ROSAS Ot G43.909 MIGRAINE, UNSP, NOT INTRACTABLE, WITHOUT 03/29/2016 DONTE YUN, CHRISTOPHE Madsen Ot F17.210 NICOTINE DEPENDENCE, CIGARETTES, UNCOMPL 03/29/2016 DONTE YUN, CHRISTOPHE T Ot R07.81 PLEURODYNIA 03/29/2016 CHRISTOPHE KENT MD T Ot R07.89 OTHER CHEST PAIN 03/29/2016 CHRISTOPHE KENT MD Ot Z79.899 OTHER JAIL (CURRENT) DRUG THERAPY 04/01/2016 CHRISTOPHE KENT MD Ot F17.210 NICOTINE DEPENDENCE, CIGARETTES, UNCOMPL 04/01/2016 CHRISTOPHE KENT MD Ot R07.81 PLEURODYNIA 04/01/2016 CHRISTOPHE EKNT MD Ot R07.89 OTHER CHEST PAIN 04/01/2016 DONTE YUN, CHRISTOPHE T Ot Z79.899 OTHER STAKES PLAYER (CURRENT) DRUG THERAPY 04/04/2016 WILFREDO YUN, JOCELYNE Key Ot G43.019 MIGRAINE W/O AURA, INTRACTABLE, WITHOUT 04/05/2016 JENNIFER ROSAS Ot F17.210 NICOTINE DEPENDENCE, CIGARETTES, UNCOMPL 04/05/2016 JENNIFER ROSAS Ot G43.909 MIGRAINE, UNSP, NOT INTRACTABLE, WITHOUT 04/05/2016 DONTE YUN, CHRISTOPHE T Ot F17.210 NICOTINE DEPENDENCE, CIGARETTES, UNCOMPL 04/05/2016 DONTE YUN, CHRISTOPHE T Ot R07.81 PLEURODYNIA 04/05/2016 DONTE YUN, CHRISTOPHE T Ot R07.89 OTHER CHEST PAIN 04/05/2016 DONTE YUN, CHRISTOPHE T Ot Z79.899 OTHER JAIL (CURRENT) DRUG THERAPY 04/24/2016 JOCELYNE VILLALOBOS MD [...] ASHLEY YUN, SIMON A Ot Z79.899 OTHER STAKES PLAYER (CURRENT) DRUG THERAPY 05/31/2016 ASHLEY YUN, SIMON A Ot G43.909 MIGRAINE, UNSP, NOT INTRACTABLE, WITHOUT 05/31/2016 ASHLEY YUN, SIMON A Ot R51 HEADACHE 05/31/2016 ASHLEY YUN, SIMON A Ot Z79.899 OTHER STAKES PLAYER (CURRENT) DRUG THERAPY 06/22/2016 JUAN MIGUEL JIMENEZ APRN Ot G43.909 MIGRAINE, UNSP, NOT INTRACTABLE, WITHOUT 06/22/2016 JUAN MIGUEL JIMENEZ APRN Ot Z79.899 OTHER JAIL (CURRENT) DRUG THERAPY 07/01/2016 ALINE YUN, BILLY Roy Ot G43.909 MIGRAINE, UNSP, NOT INTRACTABLE, WITHOUT 07/01/2016 ALINE YUN, BILLY Roy Ot Z79.899 OTHER JAIL (CURRENT) DRUG THERAPY 07/02/2016 BILLY MIRELES MD Ot G43.909 MIGRAINE, UNSP, NOT INTRACTABLE, WITHOUT 07/02/2016 ALINE YUN, BILLY Roy Ot Z79.899 OTHER JAIL (CURRENT) DRUG THERAPY 07/03/2016 BILLY MIRELES MD Ot G43.909 MIGRAINE, UNSP, NOT INTRACTABLE, WITHOUT 07/03/2016 BILLY MIRELES MD Ot Z79.899 OTHER STAKES PLAYER (CURRENT) DRUG THERAPY 07/06/2016 JENNIFER ROSAS Ot F17.210 NICOTINE DEPENDENCE, CIGARETTES, UNCOMPL 07/06/2016 JENNIFER ROSAS Ot G43.909 MIGRAINE, UNSP, NOT INTRACTABLE, WITHOUT 07/06/2016 JENNIFER ROSAS Ot Z79.899 OTHER JAIL (CURRENT) DRUG THERAPY 07/07/2016 JENNIFER ROSAS Ot F17.210 NICOTINE DEPENDENCE, CIGARETTES, UNCOMPL 07/07/2016 JENNIFER ROSAS Ot G43.909 MIGRAINE, UNSP, NOT INTRACTABLE, WITHOUT 07/07/2016 JENNIFER ROSAS Ot Z79.899 OTHER STAKES PLAYER (CURRENT) DRUG THERAPY 09/27/2016 TENZIN YUN, FADI Bennett Ot F17.210 NICOTINE DEPENDENCE, CIGARETTES, UNCOMPL 09/27/2016 TENZIN YUN, FADI Bennett Ot F32. 9 MAJOR DEPRESSIVE DISORDER, SINGLE EPISOD 09/27/2016 TENZIN YUN, FADI Bennett Ot F41. 9 ANXIETY DISORDER, UNSPECIFIED 09/27/2016 TENZIN YUN, FADI Bennett Ot F43. 10 POST-TRAUMATIC STRESS DISORDER, UNSPECIF 09/27/2016 TENZIN YUN, FADI Bennett Ot G43.909 MIGRAINE, UNSP, NOT INTRACTABLE, WITHOUT 09/27/2016 TENZIN YUN, FADI Bennett Ot K21. 9 GASTRO-ESOPHAGEAL REFLUX DISEASE WITHOUT 09/27/2016 TENZIN YUN, FADI Bennett Ot Z90. 49 ACQUIRED ABSENCE OF OTHER SPECIFIED PART 10/01/2016 TENZIN YUN, FADI Bennett Ot F17.210 NICOTINE DEPENDENCE, CIGARETTES, UNCOMPL 10/01/2016 TENZIN YUN, FADI Bennett Ot F32. 9 MAJOR DEPRESSIVE DISORDER, SINGLE EPISOD 10/01/2016 TENZIN YUN, FADI Bennett Ot F41. 9 ANXIETY DISORDER, UNSPECIFIED 10/01/2016 TENZIN YUN, FADI Bennett Ot F43. 10 POST-TRAUMATIC STRESS DISORDER, UNSPECIF 10/01/2016 TENZIN YUN, FADI Bennett Ot G43.909 MIGRAINE, UNSP, NOT INTRACTABLE, WITHOUT 10/01/2016 TENZIN YUN, FADI Bennett Ot K21. 9 GASTRO-ESOPHAGEAL REFLUX DISEASE WITHOUT 10/01/2016 TENZIN YUN, FADI Bennett Ot Z90. 49 ACQUIRED ABSENCE OF OTHER SPECIFIED PART 11/11/2016 KAIT DO YE K Ot F17.210 NICOTINE DEPENDENCE, CIGARETTES, UNCOMPL 11/11/2016 KAIT DO YE K Ot F32.9 MAJOR DEPRESSIVE DISORDER, SINGLE EPISOD 11/11/2016 KAIT DO YE K Ot F41.9 ANXIETY DISORDER, UNSPECIFIED 11/11/2016 KAIT DO YE K Ot F43.10 POST-TRAUMATIC STRESS DISORDER, UNSPECIF 11/11/2016 KAIT DO YE K Ot G43.909 MIGRAINE, UNSP, NOT INTRACTABLE, WITHOUT 11/11/2016 KAIT DO YE K Ot K21.9 GASTRO-ESOPHAGEAL REFLUX DISEASE WITHOUT 11/11/2016 KAIT DO YE K Ot N39.0 URINARY TRACT INFECTION, SITE NOT SPECIF 11/11/2016 KAIT DO YE K Ot R30.0 DYSURIA 11/11/2016 KAIT , YE Key Ot Z87.448 PERSONAL HISTORY OF OTHER DISEASES OF UR 11/11/2016 KAIT , YE Key Ot Z90.49 ACQUIRED ABSENCE OF OTHER SPECIFIED PART 11/13/2016 KAIT , YE K Ot F17.210 NICOTINE DEPENDENCE, CIGARETTES, UNCOMPL 11/13/2016 KAIT YE QUINTANA Ot F32.9 MAJOR DEPRESSIVE DISORDER, SINGLE EPISOD 11/13/2016 KAIT , YE K Ot F41.9 ANXIETY DISORDER, UNSPECIFIED 11/13/2016 KAIT , YE Key Ot F43.10 POST-TRAUMATIC STRESS DISORDER, UNSPECIF 11/13/2016 KAIT , YE Key Ot G43.909 MIGRAINE, UNSP, NOT INTRACTABLE, WITHOUT 11/13/2016 KAIT , YE Shahid Ot K21.9 GASTRO-ESOPHAGEAL REFLUX DISEASE WITHOUT 11/13/2016 KAIT YE QUINTANA Ot N39.0 URINARY TRACT INFECTION, SITE NOT SPECIF 11/13/2016 KAIT YE QUINTANA Ot R30.0 DYSURIA 11/13/2016 KAIT YE QUINTANA Ot Z87.448 PERSONAL HISTORY OF OTHER DISEASES OF UR 11/13/2016 KAIT , EY Key Ot Z90.49 ACQUIRED ABSENCE OF OTHER SPECIFIED PART 01/09/2017 WILFREDO YUN, JOCELYNE Key Ot G43.019 MIGRAINE W/O AURA, INTRACTABLE, WITHOUT 01/09/2017 TENZIN YUN, FADI Bennett Ot F32. 9 MAJOR DEPRESSIVE DISORDER, SINGLE EPISOD 01/09/2017 FADI DAVE MD Ot F41. 9 ANXIETY DISORDER, UNSPECIFIED 01/09/2017 FADI DAVE MD Ot F43. 10 POST-TRAUMATIC STRESS DISORDER, UNSPECIF 01/09/2017 FADI DAVE MD Ot G43.909 MIGRAINE, UNSP, NOT INTRACTABLE, WITHOUT 01/09/2017 FADI DAVE MD Ot K21. 9 GASTRO-ESOPHAGEAL REFLUX DISEASE WITHOUT 01/09/2017 FADI DAVE MD Ot Z87.448 PERSONAL HISTORY OF OTHER DISEASES OF UR 01/09/2017 FADI DAVE MD Ot Z90. 49 ACQUIRED ABSENCE OF OTHER SPECIFIED PART 01/27/2017 ALINE YUNBILLY Ot B37.3 CANDIDIASIS OF VULVA AND VAGINA [...] CIGARETTES, UNCOMPL 02/01/2017 ROBERT LI MD Ot F32. 9 MAJOR DEPRESSIVE DISORDER, SINGLE EPISOD 02/01/2017 ROBERT LI MD Ot F41. 9 ANXIETY DISORDER, UNSPECIFIED 02/01/2017 ROBERT LI MD Ot F43. 10 POST-TRAUMATIC STRESS DISORDER, UNSPECIF 02/01/2017 ROBERT LI MD Ot G43.909 MIGRAINE, UNSP, NOT INTRACTABLE, WITHOUT 02/01/2017 ROBERT LI MD Ot K21. 9 GASTRO-ESOPHAGEAL REFLUX DISEASE WITHOUT 02/01/2017 ROBERT LI MD Ot Z87.448 PERSONAL HISTORY OF OTHER DISEASES OF UR 02/01/2017 ROBERT LI MD Ot Z90. 49 ACQUIRED ABSENCE OF OTHER SPECIFIED PART 02/01/2017 ROBERT LI MD Ot Z97. 5 PRESENCE OF (INTRAUTERINE) CONTRACEPTIVE 03/27/2017 KAIT JAMES QUINTANAA K Ot G43.909 MIGRAINE, UNSP, NOT INTRACTABLE, WITHOUT 03/31/2017 KAITJAMES Kunz DOA K Ot G43.909 MIGRAINE, UNSP, NOT INTRACTABLE, WITHOUT 04/17/2017 CHRISTOPHE KENT MD Ot F17.210 NICOTINE DEPENDENCE, CIGARETTES, UNCOMPL 04/17/2017 CHRISTOPHE KENT MD Ot F32.9 MAJOR DEPRESSIVE DISORDER, SINGLE EPISOD 04/17/2017 CHRISTOPHE KENT MD Ot F41.9 ANXIETY DISORDER, UNSPECIFIED 04/17/2017 CHRISTOPHE KENT MD Ot F43.10 POST-TRAUMATIC STRESS DISORDER, UNSPECIF 04/17/2017 CHRISTOPHE KENT MD Ot G43.909 MIGRAINE, UNSP, NOT INTRACTABLE, WITHOUT 04/17/2017 CHRISTOPHE KENT MD Ot K21.9 GASTRO-ESOPHAGEAL REFLUX DISEASE WITHOUT 04/17/2017 CHRISTOPHE KENT MD Ot N92.0 EXCESSIVE AND FREQUENT MENSTRUATION WITH 04/17/2017 CHRISTOPHE KENT MD Ot N93.9 ABNORMAL UTERINE AND VAGINAL BLEEDING, U 04/17/2017 CHRISTOPHE KENT MD Ot N94.6 DYSMENORRHEA, UNSPECIFIED 04/17/2017 CHRISTOPHE KENT MD Ot Z87.448 PERSONAL HISTORY OF OTHER DISEASES OF UR 04/17/2017 CHRISTOPHE KENT MD Ot Z88.0 ALLERGY STATUS TO PENICILLIN 04/17/2017 CHRISTOPHE KENT MD Ot Z88.8 ALLERGY STATUS TO OTH DRUG/MEDS/BIOL SUB 04/17/2017 CHRISTOPHE KENT MD Ot Z90.49 ACQUIRED ABSENCE OF OTHER SPECIFIED PART 04/17/2017 CHRISTOPHE KENT MD Ot Z97.5 PRESENCE OF (INTRAUTERINE) CONTRACEPTIVE 04/22/2017 JUAN MIGUEL JIMENEZ APRN Ot F32 .9 MAJOR DEPRESSIVE DISORDER, SINGLE EPISOD 04/22/2017 JUAN MIGUEL JIMENEZ APRN Ot F41 .9 ANXIETY DISORDER, UNSPECIFIED 04/22/2017 JUAN MIGUEL JIMENEZ APRN Ot F43.10 POST-TRAUMATIC STRESS DISORDER, UNSPECIF 04/22/2017 JAUN MIGUEL JIMENEZ APRN Ot G43.909 MIGRAINE, UNSP, NOT INTRACTABLE, WITHOUT 04/22/2017 JUAN MIGUEL JIMENEZ APRN Ot K21 .9 GASTRO-ESOPHAGEAL REFLUX DISEASE WITHOUT 04/22/2017 JUAN MIGUEL JIMENEZ APRN Ot S61.211A LACERATION W/O FB OF L IDX FNGR W/O ROBERT 04/22/2017 JUAN MIGUEL JIMENEZ APRN Ot W26.0XXA CONTACT WITH KNIFE, INITIAL ENCOUNTER 04/22/2017 JUAN MIGUEL JIMENEZ APRN Ot Z23 ENCOUNTER FOR IMMUNIZATION 04/22/2017 JUAN MIGUEL JIMENEZ APRN Ot Z87.448 PERSONAL HISTORY OF OTHER DISEASES OF UR 04/22/2017 JUAN MIGUEL JIMENEZ APRN Ot Z88 .0 ALLERGY STATUS TO PENICILLIN 04/22/2017 JUAN MIGUEL JIMENEZ APRN Ot Z88 .8 ALLERGY STATUS TO OTH DRUG/MEDS/BIOL SUB 04/22/2017 JUAN MIGUEL JIMENEZ APRN Ot Z90.49 ACQUIRED ABSENCE OF OTHER SPECIFIED PART 04/22/2017 JUAN MIGUEL JIMENEZ APRN Ot Z97 .5 PRESENCE OF (INTRAUTERINE) CONTRACEPTIVE 04/24/2017 JUAN MIGUEL JIMENEZ APRN Ot F32 .9 MAJOR DEPRESSIVE DISORDER, SINGLE EPISOD 04/24/2017 JUAN MIGUEL JIMENEZ APRN Ot F41 .9 ANXIETY DISORDER, UNSPECIFIED 04/24/2017 JUAN MIGUEL JIMENEZ APRN Ot F43.10 POST-TRAUMATIC STRESS DISORDER, UNSPECIF 04/24/2017 JUAN MIGUEL JIMENEZ APRN Ot G43.909 MIGRAINE, UNSP, NOT INTRACTABLE, WITHOUT 04/24/2017 JUAN MIGUEL JIMENEZ APRN Ot K21 .9 GASTRO-ESOPHAGEAL REFLUX DISEASE WITHOUT 04/24/2017 JUAN MIGUEL JIMENEZ APRN Ot S61.211A LACERATION W/O FB OF L IDX FNGR W/O ROBERT 04/24/2017 JUAN MIGUEL JIMENEZ APRN Ot W26.0XXA CONTACT WITH KNIFE, INITIAL ENCOUNTER 04/24/2017 JUAN MIGUEL JIMENEZ APRN Ot Z23 ENCOUNTER FOR IMMUNIZATION 04/24/2017 JUAN MIGUEL JIMENEZ APRN Ot Z87.448 PERSONAL HISTORY OF OTHER DISEASES OF UR 04/24/2017 JUAN MIGUEL JIMENEZ APRN Ot Z88 .0 ALLERGY STATUS TO PENICILLIN 04/24/2017 JUAN MIGUEL JIMENEZ APRN Ot Z88 .8 ALLERGY STATUS TO OTH DRUG/MEDS/BIOL SUB 04/24/2017 JUAN MIGUEL JIMENEZ APRN Ot Z90.49 ACQUIRED ABSENCE OF OTHER SPECIFIED PART 04/24/2017 JUAN MIGUEL JIMENEZ APRN Ot Z97 .5 PRESENCE OF (INTRAUTERINE) CONTRACEPTIVE 07/11/2017 WILFREDO YUN, JOCELYNE Key Ot G43.019 MIGRAINE W/O AURA, INTRACTABLE, WITHOUT 07/11/2017 JUAN MIGUEL JIMENEZ APRN Ot F32 .9 MAJOR DEPRESSIVE DISORDER, SINGLE EPISOD 07/11/2017 JUAN MIGUEL JIMENEZ APRN Ot F41 .9 ANXIETY DISORDER, UNSPECIFIED 07/11/2017 JUAN MIGUEL JIMENEZ APRN Ot F43.10 POST-TRAUMATIC STRESS DISORDER, UNSPECIF 07/11/2017 JUAN MIGUEL JIMENEZ APRN Ot G43.909 MIGRAINE, UNSP, NOT INTRACTABLE, WITHOUT 07/11/2017 JUAN MIGUEL JIMENEZ APRN Ot G47 .9 SLEEP DISORDER, UNSPECIFIED 07/11/2017 JUAN MIGUEL JIMENEZ APRN Ot K21 .9 GASTRO-ESOPHAGEAL REFLUX DISEASE WITHOUT 07/11/2017 JUAN MIGUEL JIMENEZ APRN Ot Z87.440 PERSONAL HISTORY OF URINARY (TRACT) INFE 07/11/2017 JUAN MIGUEL JIMENEZ APRN Ot Z87.59 PERSONAL HISTORY OF COMP OF PREG, CHLDBR 07/11/2017 JUAN MIGUEL JIMENEZ APRN Ot Z88 .0 ALLERGY STATUS TO PENICILLIN 07/11/2017 JUAN MIGUEL JIMENEZ APRN Ot Z88 .8 ALLERGY STATUS TO OTH DRUG/MEDS/BIOL SUB 07/11/2017 JUAN MIGUEL JIMENEZ APRN Ot Z90.49 ACQUIRED ABSENCE OF OTHER SPECIFIED PART 07/11/2017 JUAN MIGUEL JIMENEZ APRN Ot Z96.22 MYRINGOTOMY TUBE(S) STATUS 07/11/2017 JUAN MIGUEL JIMENEZ APRN Ot Z97 .5 PRESENCE OF (INTRAUTERINE) CONTRACEPTIVE 07/14/2017 JUAN MIGUEL JIMENEZ APRN Ot F32 .9 MAJOR DEPRESSIVE DISORDER, SINGLE EPISOD 07/14/2017 JUAN MIGUEL JIMENEZ APRN Ot F41 .9 ANXIETY DISORDER, UNSPECIFIED 07/14/2017 JUAN MIGUEL JIMENEZ APRN Ot F43.10 POST-TRAUMATIC STRESS DISORDER, UNSPECIF 07/14/2017 JUAN MIGUEL JIMENEZ APRN Ot G43.909 MIGRAINE, UNSP, NOT INTRACTABLE, WITHOUT 07/14/2017 JUAN MIGUEL JIMENEZ APRN Ot G47 .9 SLEEP DISORDER, UNSPECIFIED 07/14/2017 JUAN MIGUEL JIMENEZ APRN Ot K21 .9 GASTRO-ESOPHAGEAL REFLUX DISEASE WITHOUT 07/14/2017 JUAN MIGUEL JIMENEZ APRN Ot Z87.440 PERSONAL HISTORY OF URINARY (TRACT) INFE 07/14/2017 JUAN MIGUEL JIMENEZ APRN Ot Z87.59 PERSONAL HISTORY OF COMP OF PREG, CHLDBR 07/14/2017 JUAN MIGUEL JIMENEZ APRN Ot Z88 .0 ALLERGY STATUS TO PENICILLIN 07/14/2017 JUAN MIGUEL JIMENEZ APRN Ot Z88 .8 ALLERGY STATUS TO OTH DRUG/MEDS/BIOL SUB 07/14/2017 JUAN MIGUEL JIMENEZ APRN Ot Z90.49 ACQUIRED ABSENCE OF OTHER SPECIFIED PART 07/14/2017 JUAN MIGUEL JIMENEZ APRN Ot Z96.22 MYRINGOTOMY TUBE(S) STATUS 07/14/2017 JUAN MIGUEL JIMENEZ APRN Ot Z97 .5 PRESENCE OF (INTRAUTERINE) CONTRACEPTIVE 08/31/2017 OJCELYNE VILLALOBOS MD Ot G43.019 MIGRAINE W/O AURA, INTRACTABLE, WITHOUT 08/31/2017 JUAN MIGUEL JIMENEZ APRN Ot F32 .9 MAJOR DEPRESSIVE DISORDER, SINGLE EPISOD 08/31/2017 JUAN MIGUEL JIMENEZ APRN Ot F41 .9 ANXIETY DISORDER, UNSPECIFIED 08/31/2017 JUAN MIGUEL JIMENEZ APRN Ot G43.909 MIGRAINE, UNSP, NOT INTRACTABLE, WITHOUT 08/31/2017 JUAN MIGUEL JIMENEZ APRN Ot R10.11 RIGHT UPPER QUADRANT PAIN 08/31/2017 JUAN MIGUEL JIMENEZ APRN Ot R10.13 EPIGASTRIC PAIN 08/31/2017 JUAN MIGUEL JIMENEZ APRN Ot Z77.22 CNTCT W AND EXPSR TO ENVIRON TOBACCO SMO 08/31/2017 JUAN MIGUEL JIMENEZ APRN Ot Z88 .0 ALLERGY STATUS TO PENICILLIN 08/31/2017 JUAN MIGUEL JIMENEZ APRN Ot Z88 .1 ALLERGY STATUS TO OTHER ANTIBIOTIC AGENT 08/31/2017 JUAN MIGUEL JIMENEZ APRN Ot Z90.49 ACQUIRED ABSENCE OF OTHER SPECIFIED PART 08/31/2017 JUAN MIGUEL JIMENEZ APRN Ot Z97 .5 PRESENCE OF (INTRAUTERINE) CONTRACEPTIVE 09/01/2017 JUAN MIGUEL JIMENEZ APRN Ot F32 .9 MAJOR DEPRESSIVE DISORDER, SINGLE EPISOD 09/01/2017 JUAN MIGUEL JIMENEZ APRN Ot F41 .9 ANXIETY DISORDER, UNSPECIFIED 09/01/2017 JUAN MIGUEL JIMENEZ APRN Ot G43.909 MIGRAINE, UNSP, NOT INTRACTABLE, WITHOUT 09/01/2017 JUAN MIGUEL JIMENEZ EQUINE BREEDER Ot R10.11 RIGHT UPPER QUADRANT PAIN 09/01/2017 JUAN MIGUEL JIMENEZ EQUINE BREEDER Ot R10.13 EPIGASTRIC PAIN 09/01/2017 JUAN MIGUEL JIMENEZ APRN Ot Z77.22 CNTCT W AND EXPSR TO ENVIRON TOBACCO SMO 09/01/2017 JUAN MIGUEL JIMENEZ EQUINE BREEDER Ot Z88 .0 ALLERGY STATUS TO PENICILLIN 09/01/2017 JUAN MIGUEL JIMENEZ EQUINE BREEDER Ot Z88 .1 ALLERGY STATUS TO OTHER ANTIBIOTIC AGENT 09/01/2017 JUAN MIGUEL JIMENEZ EQUINE BREEDER Ot Z90.49 ACQUIRED ABSENCE OF OTHER SPECIFIED PART 09/01/2017 JUAN MIGUEL JIMENEZ APRN Ot Z97 .5 PRESENCE OF (INTRAUTERINE) CONTRACEPTIVE 09/01/2017 JUAN MIGUEL JIMENEZ APRN Ot F32 .9 MAJOR DEPRESSIVE DISORDER, SINGLE EPISOD 09/01/2017 JUAN MIGUEL JIMENEZ APRN Ot F41 .9 ANXIETY DISORDER, UNSPECIFIED 09/01/2017 JUAN MIGUEL JIMENEZ APRN Ot G43.909 MIGRAINE, UNSP, NOT INTRACTABLE, WITHOUT 09/01/2017 JUAN MIGUEL JIMENEZ APRN Ot R10.11 RIGHT UPPER QUADRANT PAIN 09/01/2017 JUAN MIGUEL JIMENEZ APRN Ot R10.13 EPIGASTRIC PAIN 09/01/2017 JUAN MIGUEL JIMENEZ APRN Ot Z77.22 CNTCT W AND EXPSR TO ENVIRON TOBACCO SMO 09/01/2017 JUAN MIGUEL JIMENEZ EQUINE BREEDER Ot Z88 .0 ALLERGY STATUS TO PENICILLIN 09/01/2017 JUAN MIGUEL JIMENEZ EQUINE BREEDER Ot Z88 .1 ALLERGY STATUS TO OTHER ANTIBIOTIC AGENT 09/01/2017 JUAN MIGUEL JIMENEZ EQUINE BREEDER Ot Z90.49 ACQUIRED ABSENCE OF OTHER SPECIFIED PART 09/01/2017 JUAN MIGUEL JIMENEZ EQUINE BREEDER Ot Z97 .5 PRESENCE OF (INTRAUTERINE) CONTRACEPTIVE 10/26/2017 BERNPANCHITO PEREIRA Ot F32.9 MAJOR DEPRESSIVE DISORDER, SINGLE EPISOD 10/26/2017 BERNPANCHITO PEREIRA Ot F41.9 ANXIETY DISORDER, UNSPECIFIED 10/26/2017 PANCHITO ANTOINE Ot F43.10 POST-TRAUMATIC STRESS DISORDER, UNSPECIF 10/26/2017 PANCHITO ANTOINE Ot G43.909 MIGRAINE, UNSP, NOT INTRACTABLE, WITHOUT 10/26/2017 BERNOT, PANCHITO Ot K21.9 GASTRO-ESOPHAGEAL REFLUX DISEASE WITHOUT 10/26/2017 MASON ANTOINEIS Ot S40.862A INSECT BITE (NONVENOMOUS) OF LEFT UPPER 10/26/2017 MASON ANTOINEIS Ot W57.XXXA BIT/STUNG BY NONVENOM INSECT OTH NONVE 10/26/2017 MASON ANTOINEIS Ot Z77.22 CNTCT W AND EXPSR TO ENVIRON TOBACCO SMO 10/26/2017 MASON ANTOINEIS Ot Z88.0 ALLERGY STATUS TO PENICILLIN 10/26/2017 ELINA PANCHITO Ot Z88.2 ALLERGY STATUS TO SULFONAMIDES STATUS 10/26/2017 ELINA PANCHITO Ot Z90.49 ACQUIRED ABSENCE OF OTHER SPECIFIED PART 10/28/2017 PANCHITO ANTOINE Ot F32.9 MAJOR DEPRESSIVE DISORDER, SINGLE EPISOD 10/28/2017 MASON ANTOINEIS Ot F41.9 ANXIETY DISORDER, UNSPECIFIED 10/28/2017 MASON ANTOINEIS Ot F43.10 POST-TRAUMATIC STRESS DISORDER, UNSPECIF 10/28/2017 ELINA PANCHITO Ot G43.909 MIGRAINE, UNSP, NOT INTRACTABLE, WITHOUT 10/28/2017 TYLERMASON PEREIRAIS Ot K21.9 GASTRO-ESOPHAGEAL REFLUX DISEASE WITHOUT 10/28/2017 MASON ANTOINEIS Ot S40.862A INSECT BITE (NONVENOMOUS) OF LEFT UPPER 10/28/2017 MASON ANTOINEIS Ot W57.XXXA BIT/STUNG BY NONVENOM INSECT OTH NONVE 10/28/2017 MASON ANTOINEIS Ot Z77.22 CNTCT W AND EXPSR TO ENVIRON TOBACCO SMO 10/28/2017 MASON ANTOINEIS Ot Z88.0 ALLERGY STATUS TO PENICILLIN 10/28/2017 MASON ANTOINEIS Ot Z88.2 ALLERGY STATUS TO SULFONAMIDES STATUS 10/28/2017 MASON ANTOINEIS Ot Z90.49 ACQUIRED ABSENCE OF OTHER SPECIFIED PART 10/31/2017 BILLY MIRELES MD Ot A64 UNSPECIFIED SEXUALLY TRANSMITTED DISEASE 10/31/2017 BILLY MIRELES MD Ot F17.210 NICOTINE DEPENDENCE, CIGARETTES, UNCOMPL 10/31/2017 BILLY MIRELES MD Ot F32.9 MAJOR DEPRESSIVE DISORDER, SINGLE EPISOD 10/31/2017 BILLY MIRELES MD Ot F41.9 ANXIETY DISORDER, UNSPECIFIED 10/31/2017 IBLLY MIRELES MD Ot F43.10 POST-TRAUMATIC STRESS DISORDER, [...] ACQUIRED ABSENCE OF OTHER SPECIFIED PART 11/17/2017 PANCHITO ANTOINE Ot F17.210 NICOTINE DEPENDENCE, CIGARETTES, UNCOMPL 11/17/2017 PANCHITO ANTOINE Ot F32.9 MAJOR DEPRESSIVE DISORDER, SINGLE EPISOD 11/17/2017 PANCHITO ANTOINE Ot F41.9 ANXIETY DISORDER, UNSPECIFIED 11/17/2017 PANCHITO ANTOINE Ot F43.10 POST-TRAUMATIC STRESS DISORDER, UNSPECIF 11/17/2017 PANCHITO ANTOINE Ot G43.909 MIGRAINE, UNSP, NOT INTRACTABLE, WITHOUT 11/17/2017 PANCHITO ANTOINE Ot K21.9 GASTRO-ESOPHAGEAL REFLUX DISEASE WITHOUT 11/17/2017 PANCHITO ANTOINE Ot Z87.448 PERSONAL HISTORY OF OTHER DISEASES OF UR 11/17/2017 PANCHITO ANTOINE Ot Z88.0 ALLERGY STATUS TO PENICILLIN 11/17/2017 PANCHITO ANTOINE Ot Z88.8 ALLERGY STATUS TO OTH DRUG/MEDS/BIOL SUB 11/17/2017 PANCHITO ANTOINE Ot Z90.89 ACQUIRED ABSENCE OF OTHER ORGANS 11/17/2017 PANCHITO ANTOINE Ot Z97.5 PRESENCE OF (INTRAUTERINE) CONTRACEPTIVE 11/20/2017 JUAN MIGUEL JIMENEZ APRN Ot F32 .9 MAJOR DEPRESSIVE DISORDER, SINGLE EPISOD 11/20/2017 JUAN MIGUEL JIMENEZ APRN Ot F41 .9 ANXIETY DISORDER, UNSPECIFIED 11/20/2017 JUAN MIGUEL JIMENEZ APRN Ot F43.10 POST-TRAUMATIC STRESS DISORDER, UNSPECIF 11/20/2017 JUAN MIGUEL JIMENEZ APRN Ot G43.909 MIGRAINE, UNSP, NOT INTRACTABLE, WITHOUT 11/20/2017 JUAN MIGUEL JIMENEZ APRN Ot K21 .9 GASTRO-ESOPHAGEAL REFLUX DISEASE WITHOUT 11/20/2017 JUAN MIGUEL JIMENEZ APRN Ot R42 DIZZINESS AND GIDDINESS 11/20/2017 JUAN MIGUEL JIMENEZ APRN Ot R53 .1 WEAKNESS 11/20/2017 JUAN MIGUEL JIMENEZ APRN Ot Z77.22 CNTCT W AND EXPSR TO ENVIRON TOBACCO SMO 11/20/2017 JUAN MIGUEL JIMENEZ APRN Ot Z87.448 PERSONAL HISTORY OF OTHER DISEASES OF UR 11/20/2017 JUAN MIGUEL JIMENEZ APRN Ot Z88 .0 ALLERGY STATUS TO PENICILLIN 11/20/2017 JUAN MIGUEL JIMENEZ APRN Ot Z88 .8 ALLERGY STATUS TO OTH DRUG/MEDS/BIOL SUB 11/20/2017 JUAN MIGUEL JIMENEZ APRN Ot Z90.49 ACQUIRED ABSENCE OF OTHER SPECIFIED PART 11/20/2017 JUAN MIGUEL JIMENEZ APRN Ot Z97 .5 PRESENCE OF (INTRAUTERINE) CONTRACEPTIVE 11/24/2017 JIMENEZ, PETER J EQUINE BREEDER Ot F32 .9 MAJOR DEPRESSIVE DISORDER, SINGLE EPISOD 11/24/2017 JUAN MIGUEL JIMENEZ EQUINE BREEDER Ot F41 .9 ANXIETY DISORDER, UNSPECIFIED 11/24/2017 JUAN MIGUEL JIMENEZ EQUINE BREEDER Ot F43.10 POST-TRAUMATIC STRESS DISORDER, UNSPECIF 11/24/2017 JUAN MIGUEL JIMENEZ APRN Ot G43.909 MIGRAINE, UNSP, NOT INTRACTABLE, WITHOUT 11/24/2017 JUAN MIGUEL JIMENEZ APRN Ot K21 .9 GASTRO-ESOPHAGEAL REFLUX DISEASE WITHOUT 11/24/2017 JUAN MIGUEL JIMENEZ EQUINE BREEDER Ot R42 DIZZINESS AND GIDDINESS 11/24/2017 JUAN MIGUEL JIMENEZ APRN Ot R53 .1 WEAKNESS 11/24/2017 JUAN MIGUEL JIMENEZ APRN Ot Z77.22 CNTCT W AND EXPSR TO ENVIRON TOBACCO SMO 11/24/2017 JUAN MIGUEL JIMENEZ EQUINE BREEDER Ot Z87.448 PERSONAL HISTORY OF OTHER DISEASES OF UR 11/24/2017 JUAN MIGUEL JIMENEZ APRN Ot Z88 .0 ALLERGY STATUS TO PENICILLIN 11/24/2017 JUAN MIGUEL JIMENEZ APRN Ot Z88 .8 ALLERGY STATUS TO OTH DRUG/MEDS/BIOL SUB 11/24/2017 JUAN MIGUEL JIMENEZ APRN Ot Z90.49 ACQUIRED ABSENCE OF OTHER SPECIFIED PART 11/24/2017 JUAN MIGUEL JIMENEZ APRN Ot Z97 .5 PRESENCE OF (INTRAUTERINE) CONTRACEPTIVE 12/23/2017 WILFREDO YUN, JOCELYNE Key Ot G43.019 MIGRAINE W/O AURA, INTRACTABLE, WITHOUT 12/23/2017 ELINA PANCHITO Ot F17.210 NICOTINE DEPENDENCE, CIGARETTES, UNCOMPL 12/23/2017 PANCHITO ANTOINE Ot F32.9 MAJOR DEPRESSIVE DISORDER, SINGLE EPISOD 12/23/2017 BERNKELLI PANCHITO Ot F41.9 ANXIETY DISORDER, UNSPECIFIED 12/23/2017 MASON ANTOINEIS Ot F43.10 POST-TRAUMATIC STRESS DISORDER, UNSPECIF 12/23/2017 PANCHITO ANTOINE Ot G43.909 MIGRAINE, UNSP, NOT INTRACTABLE, WITHOUT 12/23/2017 MASON ANTOINEIS Ot K21.9 GASTRO-ESOPHAGEAL REFLUX DISEASE WITHOUT 12/23/2017 BERNKELLI PANCHITO Ot Z87.448 PERSONAL HISTORY OF OTHER DISEASES OF UR 12/23/2017 BERNMASON PEREIRAIS Ot Z88.0 ALLERGY STATUS TO PENICILLIN 12/23/2017 BERNOT, PANCHITO Ot Z88.8 ALLERGY STATUS TO OTH DRUG/MEDS/BIOL SUB 12/23/2017 BERNOT, PANCHITO Ot Z90.89 ACQUIRED ABSENCE OF OTHER ORGANS 12/23/2017 BERNOT, PANCHITO Ot Z97.5 PRESENCE OF (INTRAUTERINE) CONTRACEPTIVE 12/25/2017 BERNOT, PANCHITO Ot F17.210 NICOTINE DEPENDENCE, CIGARETTES, UNCOMPL 12/25/2017 BERNOT PANCHITO Ot F32.9 MAJOR DEPRESSIVE DISORDER, SINGLE EPISOD 12/25/2017 BERNOT PANCHITO Ot F41.9 ANXIETY DISORDER, UNSPECIFIED 12/25/2017 BERNOT, PANCHITO Ot F43.10 POST-TRAUMATIC STRESS DISORDER, UNSPECIF 12/25/2017 BERNOT, PANCHITO Ot G43.909 MIGRAINE, UNSP, NOT INTRACTABLE, WITHOUT 12/25/2017 BERNOT, PANCHITO Ot K21.9 GASTRO-ESOPHAGEAL REFLUX DISEASE WITHOUT 12/25/2017 BERNOT, PANCHITO Ot Z87.448 PERSONAL HISTORY OF OTHER DISEASES OF UR 12/25/2017 BERNOT, PANCHITO Ot Z88.0 ALLERGY STATUS TO PENICILLIN 12/25/2017 BERNOT, PANCHITO Ot Z88.8 ALLERGY STATUS TO OTH DRUG/MEDS/BIOL SUB 12/25/2017 BERNOT, PANCHITO Ot Z90.89 ACQUIRED ABSENCE OF OTHER ORGANS 12/25/2017 BERNOT, PANCHITO Ot Z97.5 PRESENCE OF (INTRAUTERINE) CONTRACEPTIVE 12/29/2017 BERNOT, PANCHITO Ot F17.210 NICOTINE DEPENDENCE, CIGARETTES, UNCOMPL 12/29/2017 ELINA PANCHITO Ot F32.9 MAJOR DEPRESSIVE DISORDER, SINGLE EPISOD 12/29/2017 ELINA PANCHITO Ot F41.9 ANXIETY DISORDER, UNSPECIFIED 12/29/2017 BERNOT, PANCHITO Ot F43.10 POST-TRAUMATIC STRESS DISORDER, UNSPECIF 12/29/2017 BERNOT, PANCHITO Ot G43.909 MIGRAINE, UNSP, NOT INTRACTABLE, WITHOUT 12/29/2017 BERNOT, PANCHITO Ot K21.9 GASTRO-ESOPHAGEAL REFLUX DISEASE WITHOUT 12/29/2017 BERNOT, PANCHITO Ot Z87.448 PERSONAL HISTORY OF OTHER DISEASES OF UR 12/29/2017 BERNOT, PANCHITO Ot Z88.0 ALLERGY STATUS TO PENICILLIN 12/29/2017 BERNOT, PANCHITO Ot Z88.8 ALLERGY STATUS TO OTH DRUG/MEDS/BIOL SUB 12/29/2017 PANCHITO ANTOINE Ot Z90.89 ACQUIRED ABSENCE OF OTHER ORGANS 12/29/2017 BERNPANCHITO PEREIRA Ot Z97.5 PRESENCE OF (INTRAUTERINE) CONTRACEPTIVE 01/25/2018 KAIT DO, YE K Ot F17.210 NICOTINE DEPENDENCE, CIGARETTES, UNCOMPL 01/25/2018 KAIT DO, YE K Ot F32.9 MAJOR DEPRESSIVE DISORDER, SINGLE EPISOD 01/25/2018 KAIT DO, YE K Ot F41.9 ANXIETY DISORDER, UNSPECIFIED 01/25/2018 KAIT DO, YE K Ot F43.10 POST-TRAUMATIC STRESS DISORDER, UNSPECIF 01/25/2018 KAIT DO, YE K Ot G43.909 MIGRAINE, UNSP, NOT INTRACTABLE, WITHOUT 01/25/2018 KAIT DO, YE K Ot G89.29 OTHER CHRONIC PAIN 01/25/2018 KAIT DO, YE K Ot K21.9 GASTRO-ESOPHAGEAL REFLUX DISEASE WITHOUT 01/25/2018 KAIT DO, YE K Ot R51 HEADACHE 01/25/2018 KAIT DO, YE K Ot Z87.448 PERSONAL HISTORY OF OTHER DISEASES OF UR 01/25/2018 KAIT DO, YE K Ot Z88.0 ALLERGY STATUS TO PENICILLIN 01/25/2018 KAIT DO, YE K Ot Z88.8 ALLERGY STATUS TO OTH DRUG/MEDS/BIOL SUB 01/25/2018 KAIT DO, YE K Ot Z90.49 ACQUIRED ABSENCE OF OTHER SPECIFIED PART 01/25/2018 KAIT DO YE K Ot Z97.5 PRESENCE OF (INTRAUTERINE) CONTRACEPTIVE 01/25/2018 KAIT DO, YE K Ot Z98.890 OTHER SPECIFIED POSTPROCEDURAL STATES 01/27/2018 KAIT DO, YE K Ot F17.210 NICOTINE DEPENDENCE, CIGARETTES, UNCOMPL 01/27/2018 KAIT DO, YE K Ot F32.9 MAJOR DEPRESSIVE DISORDER, SINGLE EPISOD 01/27/2018 KAIT DO, YE K Ot F41.9 ANXIETY DISORDER, UNSPECIFIED 01/27/2018 KAIT DO, YE K Ot F43.10 POST-TRAUMATIC STRESS DISORDER, UNSPECIF 01/27/2018 KAIT DO, YE K Ot G43.909 MIGRAINE, UNSP, NOT INTRACTABLE, WITHOUT 01/27/2018 KAIT DO, YE K Ot G89.29 OTHER CHRONIC PAIN 01/27/2018 KAIT YE Key Ot K21.9 GASTRO-ESOPHAGEAL REFLUX DISEASE WITHOUT 01/27/2018 KAIT YE K Ot R51 HEADACHE 01/27/2018 LINCOLN JAMES QUINTANAA K Ot Z87.448 PERSONAL HISTORY OF OTHER DISEASES OF UR 01/27/2018 [place] YE K Ot Z88.0 ALLERGY STATUS TO PENICILLIN 01/27/2018 [place] DO YE K Ot Z88.8 ALLERGY STATUS TO OTH DRUG/MEDS/BIOL SUB 01/27/2018 [facility] YE K Ot Z90.49 ACQUIRED ABSENCE OF OTHER SPECIFIED PART 01/27/2018 [facility] YE K Ot Z97.5 PRESENCE OF (INTRAUTERINE) CONTRACEPTIVE 01/27/2018 KAIT YE K Ot Z98.890 OTHER SPECIFIED POSTPROCEDURAL STATES 01/31/2018 KAIT YE K Ot F17.210 NICOTINE DEPENDENCE, CIGARETTES, UNCOMPL 01/31/2018 KAIT YE Shahid Ot F32.9 MAJOR DEPRESSIVE DISORDER, SINGLE EPISOD 01/31/2018 [place] YE Shahid Ot F41.9 ANXIETY DISORDER, UNSPECIFIED 01/31/2018 [place] YE K Ot F43.10 POST-TRAUMATIC STRESS DISORDER, UNSPECIF 01/31/2018 [place] YE K Ot G43.909 MIGRAINE, UNSP, NOT INTRACTABLE, WITHOUT 01/31/2018 KAIT YE K Ot G89.29 OTHER CHRONIC PAIN 01/31/2018 KAIT YE K Ot K21.9 GASTRO-ESOPHAGEAL REFLUX DISEASE WITHOUT 01/31/2018 KAIT YE K Ot R51 HEADACHE 01/31/2018 [place] YE K Ot Z87.448 PERSONAL HISTORY OF OTHER DISEASES OF UR 01/31/2018 [place] YE Shahid Ot Z88.0 ALLERGY STATUS TO PENICILLIN 01/31/2018 [place] DO YE K Ot Z88.8 ALLERGY STATUS TO OTH DRUG/MEDS/BIOL SUB 01/31/2018 [place] YE K Ot Z90.49 ACQUIRED ABSENCE OF OTHER SPECIFIED PART 01/31/2018 [facility] YE K Ot Z97.5 PRESENCE OF (INTRAUTERINE) CONTRACEPTIVE 01/31/2018 YE CARBALLO DO Ot Z98.890 OTHER SPECIFIED POSTPROCEDURAL STATES 02/04/2018 YE CARBALLO DO Ot F17.210 NICOTINE DEPENDENCE, CIGARETTES, UNCOMPL 02/04/2018 YE CARBALLO DO Ot F32.9 MAJOR DEPRESSIVE DISORDER, SINGLE EPISOD 02/04/2018 YE CARBALLO DO Ot F41.9 ANXIETY DISORDER, UNSPECIFIED 02/04/2018 YE CARBALLO DO Ot F43.10 POST-TRAUMATIC STRESS DISORDER, UNSPECIF 02/04/2018 JAMES CARBALLO DOA K Ot G89.29 OTHER CHRONIC PAIN 02/04/2018 JAMES CARBALLO DOA K Ot K21.9 GASTRO-ESOPHAGEAL REFLUX DISEASE WITHOUT 02/04/2018 YE CARBALLO DO Ot R11.2 NAUSEA WITH VOMITING, UNSPECIFIED 02/04/2018 KAIT QUINTANA YE Shahid Ot R51 HEADACHE 02/04/2018 KAIT QUINTANA YE Key Ot R56.9 UNSPECIFIED CONVULSIONS 02/04/2018 KAIT QUINTANA YE Key Ot Z88.0 ALLERGY STATUS TO PENICILLIN 02/04/2018 YE CARBALLO DO K Ot Z88.8 ALLERGY STATUS TO OTH DRUG/MEDS/BIOL SUB 02/04/2018 KAIT QUINTANA YE Key Ot Z90.49 ACQUIRED ABSENCE OF OTHER SPECIFIED PART 02/04/2018 KAIT QUINTANA YE Key Ot Z97.5 PRESENCE OF (INTRAUTERINE) CONTRACEPTIVE 02/04/2018 KAIT QUINTANA YE Key Ot Z98.84 BARIATRIC SURGERY STATUS 02/04/2018 KAIT QUINTANA YE Key Ot Z98.890 OTHER SPECIFIED POSTPROCEDURAL STATES 02/05/2018 YE CARBALLO DO Ot F17.210 NICOTINE DEPENDENCE, CIGARETTES, UNCOMPL 02/05/2018 JAMES CARBALLO DOA Shahid Ot F32.9 MAJOR DEPRESSIVE DISORDER, SINGLE EPISOD 02/05/2018 KAIT QUINTANA YE Key Ot F41.9 ANXIETY DISORDER, UNSPECIFIED 02/05/2018 KAIT QUINTANA YE K Ot F43.10 POST-TRAUMATIC STRESS DISORDER, UNSPECIF 02/05/2018 KAIT QUINTANA YE K Ot G89.29 OTHER CHRONIC PAIN 02/05/2018 JAMES CARBALLO DOA K Ot K21.9 GASTRO-ESOPHAGEAL REFLUX DISEASE WITHOUT 02/05/2018 KAIT DO, YE K Ot R11.2 NAUSEA WITH VOMITING, UNSPECIFIED 02/05/2018 KAIT DO, YE K Ot R51 HEADACHE 02/05/2018 KAIT DO, YE K Ot R56.9 UNSPECIFIED CONVULSIONS 02/05/2018 KAIT DOJAMESA K Ot Z88.0 ALLERGY STATUS TO PENICILLIN 02/05/2018 KAIT DO, YE K Ot Z88.8 ALLERGY STATUS TO OTH DRUG/MEDS/BIOL SUB 02/05/2018 KAIT DO, YE K Ot Z90.49 ACQUIRED ABSENCE OF OTHER SPECIFIED PART 02/05/2018 KAIT DO, YE K Ot Z97.5 PRESENCE OF (INTRAUTERINE) CONTRACEPTIVE 02/05/2018 KAIT DO, YE K Ot Z98.84 BARIATRIC SURGERY STATUS 02/05/2018 KAIT , YE K Ot Z98.890 OTHER SPECIFIED POSTPROCEDURAL STATES 02/07/2018 PANCHITO ANTOINE Ot A08.4 VIRAL INTESTINAL INFECTION, UNSPECIFIED 02/07/2018 PANCHITO ANTOINE Ot F32.9 MAJOR DEPRESSIVE DISORDER, SINGLE EPISOD 02/07/2018 MASON ANTOINEIS Ot F41.9 ANXIETY DISORDER, UNSPECIFIED 02/07/2018 MASON ANTOINEIS Ot F43.10 POST-TRAUMATIC STRESS DISORDER, UNSPECIF 02/07/2018 PANCHITO ANTOINE Ot G43.909 MIGRAINE, UNSP, NOT INTRACTABLE, WITHOUT 02/07/2018 MASON ANTOINEIS Ot K21.9 GASTRO-ESOPHAGEAL REFLUX DISEASE WITHOUT 02/07/2018 PANCHITO ANTOINE Ot R53.1 WEAKNESS 02/07/2018 PANCHITO ANTOINE Ot Z77.22 CNTCT W AND EXPSR TO ENVIRON TOBACCO SMO 02/07/2018 MASON ANTOINEIS Ot Z87.448 PERSONAL HISTORY OF OTHER DISEASES OF UR 02/07/2018 MASON ANTOINEIS Ot Z88.0 ALLERGY STATUS TO PENICILLIN 02/07/2018 MASON ANTOINEIS Ot Z88.8 ALLERGY STATUS TO OTH DRUG/MEDS/BIOL SUB 02/07/2018 MASON ANTOINEIS Ot Z90.49 ACQUIRED ABSENCE OF OTHER SPECIFIED PART 02/07/2018 MASON ANTOINEIS Ot Z97.5 PRESENCE OF (INTRAUTERINE) CONTRACEPTIVE 02/07/2018 MASON ANTOINEIS Ot Z98.890 OTHER SPECIFIED POSTPROCEDURAL STATES 02/09/2018 PANCHITO ANTOINE Ot A08.4 VIRAL INTESTINAL INFECTION, UNSPECIFIED 02/09/2018 PANCHITO ANTOINE Ot F32.9 MAJOR DEPRESSIVE DISORDER, SINGLE EPISOD 02/09/2018 MASON ANTOINEIS Ot F41.9 ANXIETY DISORDER, UNSPECIFIED 02/09/2018 MASON ANTOINEIS Ot F43.10 POST-TRAUMATIC STRESS DISORDER, UNSPECIF 02/09/2018 MASON ANTOINEIS Ot G43.909 MIGRAINE, UNSP, NOT INTRACTABLE, WITHOUT 02/09/2018 MASON ANTOINEIS Ot K21.9 GASTRO-ESOPHAGEAL REFLUX DISEASE WITHOUT 02/09/2018 MASON ANTOINEIS Ot R53.1 WEAKNESS 02/09/2018 PANCHITO ANTOINE Ot Z77.22 CNTCT W AND EXPSR TO ENVIRON TOBACCO SMO 02/09/2018 PANCHITO ANTOINE Ot Z87.448 PERSONAL HISTORY OF OTHER DISEASES OF UR 02/09/2018 PANCHITO ANTOINE Ot Z88.0 ALLERGY STATUS TO PENICILLIN 02/09/2018 MASON ANTOINEIS Ot Z88.8 ALLERGY STATUS TO OTH DRUG/MEDS/BIOL SUB 02/09/2018 AMSON ANTOINEIS Ot Z90.49 ACQUIRED ABSENCE OF OTHER SPECIFIED PART 02/09/2018 PANCHITO ANTOINE Ot Z97.5 PRESENCE OF (INTRAUTERINE) CONTRACEPTIVE 02/09/2018 MASON ANTOINEIS Ot Z98.890 OTHER SPECIFIED POSTPROCEDURAL STATES 04/12/2018 PANCHITO ANTOINE Ot F17.210 NICOTINE DEPENDENCE, CIGARETTES, UNCOMPL 04/12/2018 PANCHITO ANTOINE Ot F32.9 MAJOR DEPRESSIVE DISORDER, SINGLE EPISOD 04/12/2018 MASON ANTOINEIS Ot F41.9 ANXIETY DISORDER, UNSPECIFIED 04/12/2018 PANCHITO ANTOINE Ot F43.10 POST-TRAUMATIC STRESS DISORDER, UNSPECIF 04/12/2018 PANCHITO ANTOINE Ot G43.909 MIGRAINE, UNSP, NOT INTRACTABLE, WITHOUT 04/12/2018 PANCHITO ANTOINE Ot K02.9 DENTAL CARIES, UNSPECIFIED 04/12/2018 MASON ANTOINEIS Ot K04.7 PERIAPICAL ABSCESS WITHOUT SINUS 04/12/2018 PANCHITO ANTOINE Ot K21.9 GASTRO-ESOPHAGEAL REFLUX DISEASE WITHOUT 04/12/2018 BERNOT, PANCHITO Ot R68.84 JAW PAIN 04/12/2018 PANCHITO ANTOINE Ot Z87.19 PERSONAL HISTORY OF OTHER DISEASES OF TH 04/12/2018 PANCHITO ANTOINE Ot Z87.448 PERSONAL HISTORY OF OTHER DISEASES OF UR 04/12/2018 PANCHITO ANTOINE Ot Z88.0 ALLERGY STATUS TO PENICILLIN 04/12/2018 PANCHITO ANTOINE Ot Z88.8 ALLERGY STATUS TO OTH DRUG/MEDS/BIOL SUB 04/12/2018 PANCHITO ANTOINE Ot Z90.49 ACQUIRED ABSENCE OF OTHER SPECIFIED PART 04/12/2018 MASON ANTOINEIS Ot Z97.5 PRESENCE OF (INTRAUTERINE) CONTRACEPTIVE 04/12/2018 MASON ANTOINEIS Ot Z98.890 OTHER SPECIFIED POSTPROCEDURAL STATES 04/14/2018 PANCHITO ANTOINE Ot F17.210 NICOTINE DEPENDENCE, CIGARETTES, UNCOMPL 04/14/2018 PANCHITO ANTOINE Ot F32.9 MAJOR DEPRESSIVE DISORDER, SINGLE EPISOD 04/14/2018 PANCHITO ANTOINE Ot F41.9 ANXIETY DISORDER, UNSPECIFIED 04/14/2018 PANCHITO ANTOINE Ot F43.10 POST-TRAUMATIC STRESS DISORDER, UNSPECIF 04/14/2018 PANCHITO ANTOINE Ot G43.909 MIGRAINE, UNSP, NOT INTRACTABLE, WITHOUT 04/14/2018 PANCHITO ANTOINE Ot K02.9 DENTAL CARIES, UNSPECIFIED 04/14/2018 PANCHITO ANTOINE Ot K04.7 PERIAPICAL ABSCESS WITHOUT SINUS 04/14/2018 PANCHITO ANTOINE Ot K21.9 GASTRO-ESOPHAGEAL REFLUX DISEASE WITHOUT 04/14/2018 PANCHITO ANTOINE Ot R68.84 JAW PAIN 04/14/2018 PANCHITO ANTOINE Ot Z87.19 PERSONAL HISTORY OF OTHER DISEASES OF TH 04/14/2018 PANCHITO ANTOINE Ot Z87.448 PERSONAL HISTORY OF OTHER DISEASES OF UR 04/14/2018 PANCHITO ANTOINE Ot Z88.0 ALLERGY STATUS TO PENICILLIN 04/14/2018 MASON ANTOINEIS Ot Z88.8 ALLERGY STATUS TO OTH DRUG/MEDS/BIOL SUB 04/14/2018 MASON ANTOINEIS Ot Z90.49 ACQUIRED ABSENCE OF OTHER SPECIFIED PART 04/14/2018 MASON ANTOINEIS Ot Z97.5 PRESENCE OF (INTRAUTERINE) CONTRACEPTIVE 04/14/2018 MASON ANTOINEIS Ot Z98.890 OTHER SPECIFIED POSTPROCEDURAL STATES 04/22/2018 PANCHITO ANTOINE Ot F17.210 NICOTINE DEPENDENCE, CIGARETTES, UNCOMPL 04/22/2018 PANCHITO ANTOINE Ot F32.9 MAJOR DEPRESSIVE DISORDER, SINGLE EPISOD 04/22/2018 PANCHITO ANTOINE Ot F41.9 ANXIETY DISORDER, UNSPECIFIED 04/22/2018 PANCHITO ANTOINE Ot F43.10 POST-TRAUMATIC STRESS DISORDER, UNSPECIF 04/22/2018 PANCHITO ANTOINE Ot G43.909 MIGRAINE, UNSP, NOT INTRACTABLE, WITHOUT 04/22/2018 PANCHITO ANTOINE Ot K02.9 DENTAL CARIES, UNSPECIFIED 04/22/2018 PANCHITO ANTOINE Ot K04.7 PERIAPICAL ABSCESS WITHOUT SINUS 04/22/2018 PANCHITO ANTOINE Ot K21.9 GASTRO-ESOPHAGEAL REFLUX DISEASE WITHOUT 04/22/2018 PANCHITO ANTOINE Ot [...] ACQUIRED ABSENCE OF OTHER SPECIFIED PART 04/22/2018 PANCHITO ANTOINE Ot Z97.5 PRESENCE OF (INTRAUTERINE) CONTRACEPTIVE 04/22/2018 PANCHITO ANTOINE Ot Z98.890 OTHER SPECIFIED POSTPROCEDURAL STATES 05/12/2018 GELLENDER DO, WISAM A Ot R10.30 LOWER ABDOMINAL PAIN, UNSPECIFIED 05/12/2018 GELLENDER DO, WISAM A Ot Z97.5 PRESENCE OF (INTRAUTERINE) CONTRACEPTIVE 06/04/2018 GELLENDER DO, WISAM A Ot R10.30 LOWER ABDOMINAL PAIN, UNSPECIFIED 06/04/2018 GELLENDER DO, WISAM A Ot Z97.5 PRESENCE OF (INTRAUTERINE) CONTRACEPTIVE 08/10/2018 PANCHITO ANTOINE Ot F17.210 NICOTINE DEPENDENCE, CIGARETTES, UNCOMPL 08/10/2018 PANCHITO ANTOINE Ot F32.9 MAJOR DEPRESSIVE DISORDER, SINGLE EPISOD 08/10/2018 PANCHITO ANTOINE Ot F41.9 ANXIETY DISORDER, UNSPECIFIED 08/10/2018 PANCHITO ANTOINE Ot F43.10 POST-TRAUMATIC STRESS DISORDER, UNSPECIF 08/10/2018 MASON ANTOINEIS Ot G43.909 MIGRAINE, UNSP, NOT INTRACTABLE, WITHOUT 08/10/2018 MASON ANTOINEIS Ot J18.9 PNEUMONIA, UNSPECIFIED ORGANISM 08/10/2018 PANCHITO ANTOINE Ot K21.9 GASTRO-ESOPHAGEAL REFLUX DISEASE WITHOUT 08/10/2018 MASON ANTOINEIS Ot R05 COUGH 08/10/2018 MASON ANTOINEIS Ot Z79.52 JAIL (CURRENT) USE OF SYSTEMIC STER 08/10/2018 MASON ANTOINEIS Ot Z87.448 PERSONAL HISTORY OF OTHER DISEASES OF UR 08/10/2018 PANCHITO ANTOINE Ot Z88.0 ALLERGY STATUS TO PENICILLIN 08/10/2018 MASON ANTOINEIS Ot Z88.2 ALLERGY STATUS TO SULFONAMIDES STATUS 08/10/2018 MASON ANTOINEIS Ot Z88.8 ALLERGY STATUS TO OTH DRUG/MEDS/BIOL SUB 08/10/2018 MASON ANTOINEIS Ot Z90.49 ACQUIRED ABSENCE OF OTHER SPECIFIED PART 08/10/2018 MASON ANTOINEIS Ot Z96.22 MYRINGOTOMY TUBE(S) STATUS 08/10/2018 MASON ANTOINEIS Ot Z97.5 PRESENCE OF (INTRAUTERINE) CONTRACEPTIVE 08/13/2018 PANCHITO ANTOINE Ot F17.210 NICOTINE DEPENDENCE, CIGARETTES, UNCOMPL 08/13/2018 MASON ANTOINEIS Ot F32.9 MAJOR DEPRESSIVE DISORDER, SINGLE EPISOD 08/13/2018 PANCHITO ANTOINE Ot F41.9 ANXIETY DISORDER, UNSPECIFIED 08/13/2018 PANCHITO ANTOINE Ot F43.10 POST-TRAUMATIC STRESS DISORDER, UNSPECIF 08/13/2018 MASON ANTOINEIS Ot G43.909 MIGRAINE, UNSP, NOT INTRACTABLE, WITHOUT 08/13/2018 PANCHITO ANTOINE Ot J18.9 PNEUMONIA, UNSPECIFIED ORGANISM 08/13/2018 PANCHITO ANTOINE Ot K21.9 GASTRO-ESOPHAGEAL REFLUX DISEASE WITHOUT 08/13/2018 [place] ANTOINEIS Ot R05 COUGH 08/13/2018 [place] ANTOINEIS Ot Z79.52 STAKES PLAYER (CURRENT) USE OF SYSTEMIC STER 08/13/2018 MASON ANTOINEIS Ot Z87.448 PERSONAL HISTORY OF OTHER DISEASES OF UR 08/13/2018 PANCHITO ANTOINE Ot Z88.0 ALLERGY STATUS TO PENICILLIN 08/13/2018 PANCHITO ANTOINE Ot Z88.2 ALLERGY STATUS TO SULFONAMIDES STATUS 08/13/2018 PANCHITO ANTOINE Ot Z88.8 ALLERGY STATUS TO OTH DRUG/MEDS/BIOL SUB 08/13/2018 PANCHITO ANTOINE Ot Z90.49 ACQUIRED ABSENCE OF OTHER SPECIFIED PART 08/13/2018 PANCHITO ANTOINE Ot Z96.22 MYRINGOTOMY TUBE(S) STATUS 08/13/2018 PANCHITO ANTOINE Ot Z97.5 PRESENCE OF (INTRAUTERINE) CONTRACEPTIVE 08/13/2018 TALA GONZALEZ DO Ot Z01.8 18 ENCOUNTER FOR OTHER PREPROCEDURAL EXAMIN 08/14/2018 TALA GONZALEZ DO Ot Z01.8 18 ENCOUNTER FOR OTHER PREPROCEDURAL EXAMIN 08/20/2018 GELLENDER DOWISAM Ot J18.9 PNEUMONIA, UNSPECIFIED ORGANISM 08/20/2018 GELLENDER DO, WISAM Valdes Ot J18.9 PNEUMONIA, UNSPECIFIED ORGANISM 09/14/2018 GELLENDER DO, WISAM A Ot J18.9 PNEUMONIA, UNSPECIFIED ORGANISM 09/17/2018 GELLENDER DO, WISAM A Ot J18.9 PNEUMONIA, UNSPECIFIED ORGANISM 10/30/2018 TALA GONZALEZ DO Ot G89.2 9 OTHER CHRONIC PAIN 10/30/2018 TALA GONZALEZ DO Ot N80.9 ENDOMETRIOSIS, UNSPECIFIED 10/30/2018 TALA GONZALEZ DO Ot Z01.8 18 ENCOUNTER FOR OTHER PREPROCEDURAL EXAMIN 11/03/2018 TALA GONZALEZ DO Ot F33.1 MAJOR DEPRESSIVE DISORDER, RECURRENT, [place] 11/03/2018 TALA GONZALEZ DO Ot F41.1 GENERALIZED ANXIETY DISORDER 11/03/2018 TALA GONZALEZ DO Ot G43.9 09 MIGRAINE, UNSP, NOT INTRACTABLE, WITHOUT 11/03/2018 TALA GONZALEZ DO Ot J45.9 09 UNSPECIFIED ASTHMA, UNCOMPLICATED 11/03/2018 TALA GONZALEZ DO Ot K21.9 GASTRO-ESOPHAGEAL REFLUX DISEASE WITHOUT 11/03/2018 TALA GONZALEZ DO Ot K59.0 0 CONSTIPATION, UNSPECIFIED 11/03/2018 TALA GONZALEZ DO Ot N80.9 ENDOMETRIOSIS, UNSPECIFIED 11/03/2018 TALA GONZALEZ DO Ot Z53.8 PROCEDURE AND TREATMENT NOT CARRIED OUT 11/03/2018 TALA GONZALEZ DO Ot Z79.8 99 OTHER JAIL (CURRENT) DRUG THERAPY 11/03/2018 TALA GONZALEZ DO C Ot Z81.8 FAMILY HISTORY OF OTHER MENTAL AND BEHAV 11/03/2018 TALA GONZALEZ DO Ot Z82.4 9 FAMILY HX OF ISCHEM HEART DIS AND OTH DI 11/03/2018 TALA GONZALEZ DO Ot Z83.3 FAMILY HISTORY OF DIABETES MELLITUS 11/03/2018 TALA GONZALEZ DO Ot Z87.8 91 PERSONAL HISTORY OF NICOTINE DEPENDENCE 11/03/2018 TALA GONZALEZ DO Ot Z88.0 ALLERGY STATUS TO PENICILLIN 11/03/2018 TALA GONZALEZ DO Ot Z88.8 ALLERGY STATUS TO OT DRUG/MEDS/BIOL SUB 11/30/2018 TALA GONZALEZ DO C Ot F33.1 MAJOR DEPRESSIVE DISORDER, RECURRENT, MO 11/30/2018 TALA GONZALEZ DO Ot F41.1 GENERALIZED ANXIETY DISORDER 11/30/2018 TALA GONZALEZ DO Ot G43.9 09 MIGRAINE, UNSP, NOT INTRACTABLE, WITHOUT 11/30/2018 TALA GONZALEZ DO Ot J45.9 09 UNSPECIFIED ASTHMA, UNCOMPLICATED 11/30/2018 TALA GONZALEZ DO Ot K21.9 GASTRO-ESOPHAGEAL REFLUX DISEASE WITHOUT 11/30/2018 TALA GONZALEZ DO Ot K59.0 0 CONSTIPATION, UNSPECIFIED 11/30/2018 TALA GONZALEZ DO Ot N80.9 ENDOMETRIOSIS, UNSPECIFIED 11/30/2018 TALA GONZALEZ DO Ot Z53.8 PROCEDURE AND TREATMENT NOT CARRIED OUT 11/30/2018 TALA GONZALEZ DO Ot Z79.8 99 OTHER STAKES PLAYER (CURRENT) DRUG THERAPY 11/30/2018 TALA GONZALEZ DO Ot Z81.8 FAMILY HISTORY OF OTHER MENTAL AND BEHAV 11/30/2018 TALA GONZALEZ DO C Ot Z82.4 9 FAMILY HX OF ISCHEM HEART DIS AND OTH DI 11/30/2018 TALA GONZALEZ DO Ot Z83.3 FAMILY HISTORY OF DIABETES MELLITUS 11/30/2018 TALA GONZALEZ DO Ot Z87.8 91 PERSONAL HISTORY OF NICOTINE DEPENDENCE 11/30/2018 TALA GONZALEZ DO Ot Z88.0 ALLERGY STATUS TO PENICILLIN 11/30/2018 TALA GONZALEZ DO Ot Z88.8 ALLERGY STATUS TO OTH DRUG/MEDS/BIOL SUB 12/22/2018 TALA GONZALEZ DO Ot F33.1 MAJOR DEPRESSIVE DISORDER, RECURRENT, MO 12/22/2018 TALA GONZALEZ DO Ot F41.1 GENERALIZED ANXIETY DISORDER 12/22/2018 TALA GONZALEZ DO Ot G43.9 09 MIGRAINE, UNSP, NOT INTRACTABLE, WITHOUT 12/22/2018 TALA GONZALEZ DO Ot J45.9 09 UNSPECIFIED ASTHMA, UNCOMPLICATED 12/22/2018 TALA GONZALEZ DO Ot K21.9 GASTRO-ESOPHAGEAL REFLUX DISEASE WITHOUT 12/22/2018 TALA GONZALEZ DO Ot K59.0 0 CONSTIPATION, UNSPECIFIED 12/22/2018 TALA GONZALEZ DO Ot N80.9 ENDOMETRIOSIS, UNSPECIFIED 12/22/2018 TALA GONZALEZ DO Ot Z53.8 PROCEDURE AND TREATMENT NOT CARRIED OUT 12/22/2018 TALA GONZALEZ DO Ot Z79.8 99 OTHER JAIL (CURRENT) DRUG THERAPY 12/22/2018 TALA GONZALEZ DO Ot Z81.8 FAMILY HISTORY OF OTHER MENTAL AND BEHAV 12/22/2018 TALA GONZALEZ DO Ot Z82.4 9 FAMILY HX OF ISCHEM HEART DIS AND OTH DI 12/22/2018 TALA GONZALEZ DO Ot Z83.3 FAMILY HISTORY OF DIABETES MELLITUS 12/22/2018 TALA GONZALEZ DO Ot Z87.8 91 PERSONAL HISTORY OF NICOTINE DEPENDENCE 12/22/2018 TALA GONZALEZ DO Ot Z88.0 ALLERGY STATUS TO PENICILLIN 12/22/2018 TALA GONZALEZ DO Ot Z88.8 ALLERGY STATUS TO OTH DRUG/MEDS/BIOL SUB 12/28/2018 STACEY WU ROLL FORMING MACHINE OPERATOR Ot F17.210 NICOTINE DEPENDENCE, CIGARETTES, UNCOMPL 12/28/2018 STACEY WU [employer]MING MACHINE OPERATOR Ot F32.9 MAJOR DEPRESSIVE DISORDER, SINGLE EPISOD 12/28/2018 STACEY WU RO[employer] FORMING MACHINE OPERATOR Ot F41.9 ANXIETY DISORDER, UNSPECIFIED 12/28/2018 STACEY WU RO[employer] FORMING MACHINE OPERATOR Ot F43.10 POST-TRAUMATIC STRESS DISORDER, UNSPECIF 12/28/2018 BRYCE, STACEY RO[employer] FORMING MACHINE OPERATOR Ot G43.909 MIGRAINE, UNSP, NOT INTRACTABLE, WITHOUT 12/28/2018 BRYCE, STACEY RO[employer] FORMING MACHINE OPERATOR Ot K21.9 GASTRO-ESOPHAGEAL REFLUX DISEASE WITHOUT 12/28/2018 BRYCE, STACEY RO[employer]ING MACHINE OPERATOR Ot M54.5 LOW BACK PAIN 12/28/2018 BRYCE, STACEY [employer]MING MACHINE OPERATOR Ot N80.9 ENDOMETRIOSIS, UNSPECIFIED 12/28/2018 BRYCE, STACEY [employer]ING MACHINE OPERATOR Ot N83.201 UNSPECIFIED OVARIAN CYST, RIGHT SIDE 12/28/2018 BRYCE, STACEY [employer]MING MACHINE OPERATOR Ot Z87.440 PERSONAL HISTORY OF URINARY (TRACT) INFE 12/28/2018 BRYCE, STACEY RO[employer] FORMING MACHINE OPERATOR Ot Z88.0 ALLERGY STATUS TO PENICILLIN 12/28/2018 BRYCE, STACEY ROLL FORMING MACHINE OPERATOR Ot Z88.8 ALLERGY STATUS TO OTH DRUG/MEDS/BIOL SUB 12/28/2018 BRYCE, STACEY ROLL FORMING MACHINE OPERATOR Ot Z90.49 ACQUIRED ABSENCE OF OTHER SPECIFIED PART 12/31/2018 BRYCE, STACEY ROLL FORMING MACHINE OPERATOR Ot F17.210 NICOTINE DEPENDENCE, CIGARETTES, UNCOMPL 12/31/2018 BRYCE, STACEY ROLL FORMING MACHINE OPERATOR Ot F32.9 MAJOR DEPRESSIVE DISORDER, SINGLE EPISOD 12/31/2018 BRYCE, STACEY ROLL FORMING MACHINE OPERATOR Ot F41.9 ANXIETY DISORDER, UNSPECIFIED 12/31/2018 BRYCE, STACEY ROLL FORMING MACHINE OPERATOR Ot F43.10 POST-TRAUMATIC STRESS DISORDER, UNSPECIF 12/31/2018 BRYCE, STACEY ROLL FORMING MACHINE OPERATOR Ot G43.909 MIGRAINE, UNSP, NOT INTRACTABLE, WITHOUT 12/31/2018 BRYCE, STACEY ROLL FORMING MACHINE OPERATOR Ot K21.9 GASTRO-ESOPHAGEAL REFLUX DISEASE WITHOUT 12/31/2018 BRYCE, STACEY ROLL FORMING MACHINE OPERATOR Ot M54.5 LOW BACK PAIN 12/31/2018 BRYCE, STACEY ROLL FORMING MACHINE OPERATOR Ot N80.9 ENDOMETRIOSIS, UNSPECIFIED 12/31/2018 BRYCE, STACEY ROLL FORMING MACHINE OPERATOR Ot N83.201 UNSPECIFIED OVARIAN CYST, RIGHT SIDE 12/31/2018 BRYCE, STACEY ROLL FORMING MACHINE OPERATOR Ot Z87.440 PERSONAL HISTORY OF URINARY (TRACT) INFE 12/31/2018 BRYCE, STACEY ROLL FORMING MACHINE OPERATOR Ot Z88.0 ALLERGY STATUS TO PENICILLIN 12/31/2018 BRYCE, STACEY ROLL FORMING MACHINE OPERATOR Ot Z88.8 ALLERGY STATUS TO OTH DRUG/MEDS/BIOL SUB 12/31/2018 BRYCE, STACEY ROLL FORMING MACHINE OPERATOR Ot Z90.49 ACQUIRED ABSENCE OF OTHER SPECIFIED PART 03/13/2019 JIMENEZ, JUAN MIGUEL Mukherjee APRN Ot F32 .9 MAJOR DEPRESSIVE DISORDER, SINGLE EPISOD 03/13/2019 JIMENEZ, JUAN MIGUEL Mukherjee APRN Ot F41 .9 ANXIETY DISORDER, UNSPECIFIED 03/13/2019 JIMENEZ, JUAN MIGUEL Mukherjee APRN Ot F43.10 POST-TRAUMATIC STRESS DISORDER, UNSPECIF 03/13/2019 JIMENEZ, JUAN MIGUEL Mukherjee APRN Ot K21 .9 GASTRO-ESOPHAGEAL REFLUX DISEASE WITHOUT 03/13/2019 JIMENEZ, JUAN MIGUEL Mukherjee APRN Ot R51 HEADACHE 03/13/2019 JIMENEZ, JUAN MIGUEL Mukherjee APRN Ot Z77.22 CNTCT W AND EXPSR TO ENVIRON TOBACCO SMO 03/13/2019 JIMENEZ, JUAN MIGUEL Mukherjee APRN Ot Z86.69 PERSONAL HISTORY OF DIS OF THE NERVOUS S 03/13/2019 JIMENEZ, JUAN MIGUEL Mukherjee APRN Ot Z88 .0 ALLERGY STATUS TO PENICILLIN 03/13/2019 JIMENEZ, JUAN MIGUEL Mukherjee APRN Ot Z88 .8 ALLERGY STATUS TO OTH DRUG/MEDS/BIOL SUB 03/13/2019 JIMENEZ, JUAN MIGUEL Mukherjee APRN Ot Z90.49 ACQUIRED ABSENCE OF OTHER SPECIFIED PART 03/19/2019 JIMENEZ, JUAN MIGUEL Mukherjee APRN Ot F32 .9 MAJOR DEPRESSIVE DISORDER, SINGLE EPISOD 03/19/2019 JIMENEZ, JUAN MIGUEL Mukherjee APRN Ot F41 .9 ANXIETY DISORDER, UNSPECIFIED 03/19/2019 JIMENEZ, JUAN MIGUEL Mukherjee APRN Ot F43.10 POST-TRAUMATIC STRESS DISORDER, UNSPECIF 03/19/2019 JIMENEZ, JUAN MIGUEL Mukherjee APRN Ot K21 .9 GASTRO-ESOPHAGEAL REFLUX DISEASE WITHOUT 03/19/2019 JIMENEZ, JUAN MIGUEL Mukherjee APRN Ot R51 HEADACHE 03/19/2019 JIMENEZ, JUAN MIGEUL Mukherjee APRN Ot Z77.22 CNTCT W AND EXPSR TO ENVIRON TOBACCO SMO 03/19/2019 JIMENEZ, JUAN MIGUEL Mukherjee APRN Ot Z86.69 PERSONAL HISTORY OF DIS OF THE NERVOUS S 03/19/2019 JIMENEZ, JUAN MIGUEL Mukherjee APRN Ot Z88 .0 ALLERGY STATUS TO PENICILLIN 03/19/2019 JIMENEZ, JUAN MIGUEL Mukherjee EQUINE BREEDER Ot Z88 .8 ALLERGY STATUS TO OTH DRUG/MEDS/BIOL SUB 03/19/2019 JIMENEZ, JUAN MIGUEL Mukherjee APRN Ot Z90.49 ACQUIRED ABSENCE OF OTHER SPECIFIED PART 03/21/2019 JIMENEZ, JUAN MIGUEL Mukherjee APRN Ot F32 .9 MAJOR DEPRESSIVE DISORDER, SINGLE EPISOD 03/21/2019 JUAN MIGUEL JIMENEZ APRN Ot F41 .9 ANXIETY DISORDER, UNSPECIFIED 03/21/2019 JUAN MIGUEL JIMENEZ APRN Ot F43.10 POST-TRAUMATIC STRESS DISORDER, UNSPECIF 03/21/2019 JUAN MIGUEL JIMENEZ APRN Ot K21 .9 GASTRO-ESOPHAGEAL REFLUX DISEASE WITHOUT 03/21/2019 JUAN MIGUEL JIMENEZ APRN Ot R51 HEADACHE 03/21/2019 JUAN MIGUEL JIMENEZ APRN Ot Z77.22 CNTCT W AND EXPSR TO ENVIRON TOBACCO SMO 03/21/2019 JUAN MIGUEL JIMENEZ APRN Ot Z86.69 PERSONAL HISTORY OF DIS OF THE NERVOUS S 03/21/2019 JUAN MIGUEL JIMENEZ APRN Ot Z88 .0 ALLERGY STATUS TO PENICILLIN 03/21/2019 JUAN MIGUEL JIMENEZ APRN Ot Z88 .8 ALLERGY STATUS TO OTH DRUG/MEDS/BIOL SUB 03/21/2019 JUAN MIGUEL JIMENEZ APRN Ot Z90.49 ACQUIRED ABSENCE OF OTHER SPECIFIED PART 03/21/2019 GONZALEZ DO TALA C Ot T83.32XA DISPLACEMENT OF INTRAUTERINE CONTRACEPTI 03/21/2019 GONZALEZ DO TALA C Ot Z30.4 31 ENCOUNTER FOR ROUTINE CHECKING OF INTRAU 04/09/2019 GONZALEZ DO TALA C Ot T83.32XA DISPLACEMENT OF INTRAUTERINE CONTRACEPTI 04/09/2019 GONZALEZ DO TALA C Ot Z30.4 31 ENCOUNTER FOR ROUTINE CHECKING OF INTRAU 04/21/2019 GONZALEZ DO TALA C Ot T83.32XA DISPLACEMENT OF INTRAUTERINE CONTRACEPTI 04/21/2019 GONZALEZ DO TALA C Ot Z30.4 31 ENCOUNTER FOR ROUTINE CHECKING OF INTRAU Procedures Code Description Performed By Per formed On [id number] RE PAIR ANAL SPHINCTER, OPEN APPROACH 08/08/2015 [id number] IN TRODUCE OTH THERAP SUBST IN PERIPH VEI 08/08/2015 Results Test Result Range Complete urinalysis with reflex to cultu re - 11/12/15 14:19 Urine color determination YELLOW NRG Urine clarity determination CLEAR NR G Urine pH measurement by test strip 6.5 5-9 Specific gravity of urine by test strip 1.020 1.016-1.022 Urine protein assay by test strip, semi-quantitative 2+ NEGATIVE Urine glucose detection by automated test strip NE GATIVE NEGATIVE Erythrocytes detection in urine sediment by light micr oscopy NEGATIVE NEGATIVE Urine ketones detection by automated test strip NE GATIVE NEGATIVE Urine nitrite detection by test strip NEGATIVE NEGATIVE Urine total bilirubin detection by test strip 1+ NEGATIVE Urine urobilinogen measurement by automated test strip (mass/volume) 4 mg/dL NORMAL Urine leukocyte esterase detection by dipstick 1+ NEGATIVE Automated urine sediment erythrocyte cou nt by microscopy (number/high power field) NONE NRG Automated urine sediment leukocyte count by microscopy (number/high power field) [HPF] NRG Bacteria detection in urine sediment by light microsco py LARGE NRG Crystals detection in urine sediment by light microsco py PRESENT NRG Casts detection in urine sediment by light microscopy NONE NRG Mucus detection in urine sediment by light microscopy LARGE NRG Complete urinalysis with reflex to culture YES NRG Calcium oxalate crystals detection in ur ine sediment by light microscopy FEW NRG Bacterial urine culture - 11/12/15 14:19 Bacterial urine culture [id number] NRG COLONY COUNT >100,000/ML NRG URINE CULTURE RESULTS <10,000/ML NRG Streptococcus pyogenes antigen detection - 11/12/15 14:28 Streptococcus pyogenes antigen detection NEGATIVE NEGATIVE Bacterial throat culture - 11/12/15 14:2 8 Bacterial throat culture NBS NRG Urine beta human chorionic gonadotropin (hCG) measurement - 11/29/15 10:36 Urine beta human chorionic gonadotropin (hCG) measurem ent NEGATIVE NEGATIVE Complete urinalysis with reflex to cultu re - 11/29/15 10:36 Urine color determination YELLOW NRG Urine clarity determination SLIGHTLY CLOUDY NRG Urine pH measurement by test strip 7 5-9 Specific gravity of urine by test strip 1.015 1.016-1.022 Urine protein assay by test strip, semi-quantitative 2+ NEGATIVE Urine glucose detection by automated test strip NE GATIVE NEGATIVE Erythrocytes detection in urine sediment by light micr oscopy 2+ NEGATIVE Urine ketones detection by automated test strip NE GATIVE NEGATIVE Urine nitrite detection by test strip NEGATIVE NEGATIVE Urine total bilirubin detection by test strip NEGA TIVE NEGATIVE Urine urobilinogen measurement by automated test strip (mass/volume) 1 mg/dL NORMAL Urine leukocyte esterase detection by dipstick 1+ NEGATIVE Automated urine sediment erythrocyte cou nt by microscopy (number/high power field) [HPF] NRG Automated urine sediment leukocyte count by microscopy (number/high power field) [HPF] NRG Bacteria detection in urine sediment by light microsco py TRACE NRG Squamous epithelial cells detection in u rine sediment by light microscopy 2-5 NRG Crystals detection in urine sediment by light microsco py PRESENT NRG Casts detection in urine sediment by light microscopy NONE NRG Mucus detection in urine sediment by light microscopy LARGE NRG Complete urinalysis with reflex to culture NO NRG Amorphous sediment detection in urine sediment by ligh t microscopy MOD VANESA URATES NRG Chlamydia DNA amp probe, urine - 6 10:36 Chlamydia DNA amp probe, urine Negative Negative Urine Neisseria gonorrhoeae DNA assay - 11/29/15 10:36 Gonorrhea amp DNA-urine Negative Negati ve Complete blood count (CBC) with automate d white blood cell (WBC) differential - 11/29/15 11:21 Blood leukocytes automated count (number/volume) 8.2 10*3/uL 4.3-11.0 Blood erythrocytes automated count (number/volume) 4.31 10*6/uL 4.35-5.85 Venous blood hemoglobin measurement (mass/volume) 14.0 g/dL 11.5-16.0 Blood hematocrit (volume fraction) 40 % 35-52 Automated erythrocyte mean corpuscular volume 94 [ foz_us] 80-99 Automated erythrocyte mean corpuscular h emoglobin (mass per erythrocyte) 33 pg 25-34 Automated erythrocyte mean corpuscular h emoglobin concentration measurement (mass/volume) 35 g/dL 32-36 Automated erythrocyte distribution width ratio 12. 8 % 10.0- 14.5 Automated blood platelet count [...] 10*3 1.0-4.0 Blood monocytes automated count (number/volume) 0. 5 10*3 0.0-1.0 Automated eosinophil count 0.1 10*3/uL 0 .0-0.3 Automated blood basophil count (count/volume) 0.1 10*3/uL 0.0-0.1 Comprehensive metabolic panel - 11/29/15 11:21 Serum or plasma sodium measurement (moles/volume) 140 mmol/L 135-145 Serum or plasma potassium measurement (moles/volume) 3.7 mmol/L 3.6-5.0 Serum or plasma chloride measurement (moles/volume) 115 mmol/L 98-107 Carbon dioxide 18 mmol/L 21-32 Serum or plasma anion gap determination (moles/volume) 7 mmol/L 5-14 Serum or plasma urea nitrogen measurement (mass/volume ) 6 mg/dL 7-18 Serum or plasma creatinine measurement (mass/volume) 0.66 mg/dL 0.60-1.30 Serum or plasma urea nitrogen/creatinine mass ratio 9 NRG Serum or plasma creatinine measurement w ith calculation of estimated glomerular filtration rate > NRG Serum or plasma glucose measurement (mass/volume) 85 mg/dL 70-105 Serum or plasma calcium measurement (mass/volume) 9.1 mg/dL 8.5-10.1 Serum or plasma total bilirubin measurement (mass/volu me) 0.5 mg/dL 0.1-1.0 Serum or plasma alkaline phosphatase adryan surement (enzymatic activity/volume) 52 U/L 40-136 Serum or plasma aspartate aminotransfera se measurement (enzymatic activity/volume) 12 U/L 5-34 Serum or plasma alanine aminotransferase measurement (enzymatic activity/volume) 13 U/L 0-55 Serum or plasma protein measurement (mass/volume) 6.2 g/dL 6.4-8.2 Serum or plasma albumin measurement (mass/volume) 4.0 g/dL 3.2-4.5 Serum or plasma C reactive protein measu rement (mass/volume) - 11/29/15 11:21 Serum or plasma C reactive protein measurement (mass/v olume) 0.10 mg/dL 0.00-0.50 Automated blood complete blood count (he mogram) panel - 04/03/16 13:58 Blood leukocytes automated count (number/volume) 11.4 10*3/uL 4.3-11.0 Blood erythrocytes automated count (number/volume) 3.93 10*6/uL 4.35-5.85 Venous blood hemoglobin measurement (mass/volume) 13.4 g/dL 11.5-16.0 Blood hematocrit (volume fraction) 39 % 35-52 Automated erythrocyte mean corpuscular volume 100 [foz_us] 80-99 Automated erythrocyte mean corpuscular h emoglobin (mass per erythrocyte) 34 pg 25-34 Automated erythrocyte mean corpuscular h emoglobin concentration measurement (mass/volume) 34 g/dL 32-36 Automated erythrocyte distribution width ratio 12. 7 % 10.0- 14.5 Automated blood platelet count [...] 5-14 Serum or plasma urea nitrogen measurement (mass/volume ) 12 mg/dL 7-18 Serum or plasma creatinine measurement (mass/volume) 0.66 mg/dL 0.60-1.30 Serum or plasma urea nitrogen/creatinine mass ratio 18 NRG Serum or plasma creatinine measurement w ith calculation of estimated glomerular filtration rate > NRG Serum or plasma glucose measurement (mass/volume) 80 mg/dL 70-105 Serum or plasma calcium measurement (mass/volume) 9.0 mg/dL 8.5-10.1 Serum or plasma total bilirubin measurement (mass/volu me) 0.4 mg/dL 0.1-1.0 Serum or plasma alkaline phosphatase adryan surement (enzymatic activity/volume) 47 U/L 40-136 Serum or plasma aspartate aminotransfera se measurement (enzymatic activity/volume) 8 U/L 5-34 Serum or plasma alanine aminotransferase measurement (enzymatic activity/volume) 13 U/L 0-55 Serum or plasma protein measurement (mass/volume) 6.1 g/dL 6.4-8.2 Serum or plasma albumin measurement (mass/volume) 4.2 g/dL 3.2-4.5 Erythrocyte sedimentation rate by juan gren method - 04/03/16 13:58 Erythrocyte sedimentation rate by westergren method 3 mm 0- 35 Urine drug screening test - 11/11/16 19: 42 Urine phencyclidine detection by screening method NEGATIVE NEGATIVE Urine benzodiazepines detection by screening method NEGATIVE NEGATIVE Urine cocaine detection NEGATIVE NEGATI VE Urine amphetamines detection by screening method N EGATIVE NEGATIVE Urine methamphetamine detection by screening method NEGATIVE NEGATIVE Urine cannabinoids detection by screening method N EGATIVE NEGATIVE Urine opiates detection by screening method NEGATI VE NEGATIVE Urine barbiturates detection POSITIVE N EGATIVE Screening urine tricyclic antidepressants detection NEGATIVE NEGATIVE Urine methadone detection by screening method NEGA TIVE NEGATIVE Urine oxycodone detection NEGATIVE NEGA TIVE Urine propoxyphene detection NEGATIVE N EGATIVE Complete urinalysis with reflex to cultu re - 11/11/16 19:42 Urine color determination YELLOW NRG Urine clarity determination SLIGHTLY CLOUDY NRG Urine pH measurement by test strip 5 5-9 Specific gravity of urine by test strip 1.030 1.016-1.022 Urine protein assay by test strip, semi-quantitative 2+ NEGATIVE Urine glucose detection by automated test strip NE GATIVE NEGATIVE Erythrocytes detection in urine sediment by light micr oscopy 4+ NEGATIVE Urine ketones detection by automated test strip 1+ NEGATIVE Urine nitrite detection by test strip NEGATIVE NEGATIVE Urine total bilirubin detection by test strip 1+ NEGATIVE Urine urobilinogen measurement by automated test strip (mass/volume) 1 mg/dL NORMAL Urine leukocyte esterase detection by dipstick 1+ NEGATIVE Automated urine sediment erythrocyte cou nt by microscopy (number/high power field) [HPF] NRG Automated urine sediment leukocyte count by microscopy (number/high power field) [HPF] NRG Bacteria detection in urine sediment by light microsco py NEGATIVE NRG Squamous epithelial cells detection in u rine sediment by light microscopy >50 NRG Crystals detection in urine sediment by light microsco py PRESENT NRG Casts detection in urine sediment by light microscopy NONE NRG Mucus detection in urine sediment by light microscopy NEGATIVE NRG Complete urinalysis with reflex to culture YES NRG Yeast detection in urine sediment by light microscopy FEW NRG Calcium oxalate crystals detection in ur ine sediment by light microscopy MODERATE NRG Bacterial urine culture - 11/11/16 19:42 Bacterial urine culture [id number] NRG COLONY COUNT <10,000 NRG FTX;REPORTABLE PLUS, MIXED GRAM POSITIVES <10,000/ ML NRG URINE CULTURE RESULTS <10,000/ML NRG Complete urinalysis with reflex to cultu re - 01/27/17 23:05 Urine color determination YELLOW NRG Urine clarity determination VERY CLOUDY NRG Urine pH measurement by test strip 8 5-9 Specific gravity of urine by test strip 1.015 1.016-1.022 Urine protein assay by test strip, semi-quantitative 1+ NEGATIVE Urine glucose detection by automated test strip NE GATIVE NEGATIVE Erythrocytes detection in urine sediment by light micr oscopy 2+ NEGATIVE Urine ketones detection by automated test strip NE GATIVE NEGATIVE Urine nitrite detection by test strip NEGATIVE NEGATIVE Urine total bilirubin detection by test strip NEGA TIVE NEGATIVE Urine urobilinogen measurement by automated test strip (mass/volume) 1 mg/dL NORMAL Urine leukocyte esterase detection by dipstick 2+ NEGATIVE Automated urine sediment erythrocyte cou nt by microscopy (number/high power field) NONE NRG Automated urine sediment leukocyte count by microscopy (number/high power field) [HPF] NRG Bacteria detection in urine sediment by light microsco py NONE NRG Squamous epithelial cells detection in u rine sediment by light microscopy 2-5 NRG Crystals detection in urine sediment by light microsco py PRESENT NRG Casts detection in urine sediment by light microscopy NONE NRG Mucus detection in urine sediment by light microscopy NEGATIVE NRG Complete urinalysis with reflex to culture NO NRG Amorphous sediment detection in urine sediment by ligh t microscopy LARGE VANESA PHOSPHATE NRG Complete blood count (CBC) with automate d white blood cell (WBC) differential - 04/17/17 21:35 Blood leukocytes automated count (number/volume) 10.4 10*3/uL 4.3-11.0 Blood erythrocytes automated count (number/volume) 4.51 10*6/uL 4.35-5.85 Venous blood hemoglobin measurement (mass/volume) 15.8 g/dL 11.5-16.0 Blood hematocrit (volume fraction) 44 % 35-52 Automated erythrocyte mean corpuscular volume 98 [ foz_us] 80-99 Automated erythrocyte mean corpuscular h emoglobin (mass per erythrocyte) 35 pg 25-34 Automated erythrocyte mean corpuscular h emoglobin concentration measurement (mass/volume) 36 g/dL 32-36 Automated erythrocyte distribution width ratio 12. 3 % 10.0- 14.5 Automated blood platelet count [...] 10*3 1.0-4.0 Blood monocytes automated count (number/volume) 0. 4 10*3 0.0-1.0 Automated eosinophil count 0.2 10*3/uL 0 .0-0.3 Automated blood basophil count (count/volume) 0.0 10*3/uL 0.0-0.1 Comprehensive metabolic panel - 04/17/17 21:35 Serum or plasma sodium measurement (moles/volume) 139 mmol/L 135-145 Serum or plasma potassium measurement (moles/volume) 3.3 mmol/L 3.6-5.0 Serum or plasma chloride measurement (moles/volume) 111 mmol/L 98-107 Carbon dioxide 18 mmol/L 21-32 Serum or plasma anion gap determination (moles/volume) 10 mmol/L 5-14 Serum or plasma urea nitrogen measurement (mass/volume ) 8 mg/dL 7-18 Serum or plasma creatinine measurement (mass/volume) 0.74 mg/dL 0.60-1.30 Serum or plasma urea nitrogen/creatinine mass ratio 11 NRG Serum or plasma creatinine measurement w ith calculation of estimated glomerular filtration rate > NRG Serum or plasma glucose measurement (mass/volume) 89 mg/dL 70-105 Serum or plasma calcium measurement (mass/volume) 9.7 mg/dL 8.5-10.1 Serum or plasma total bilirubin measurement (mass/volu me) 0.4 mg/dL 0.1-1.0 Serum or plasma alkaline phosphatase adryan surement (enzymatic activity/volume) 65 U/L 40-136 Serum or plasma aspartate aminotransfera se measurement (enzymatic activity/volume) 11 U/L 5-34 Serum or plasma alanine aminotransferase measurement (enzymatic activity/volume) 8 U/L 0-55 Serum or plasma protein measurement (mass/volume) 7.7 g/dL 6.4-8.2 Serum or plasma albumin measurement (mass/volume) 4.6 g/dL 3.2-4.5 Serum or plasma choriogonadotropin (preg vanessa test) detection - 04/17/17 21:35 Serum or plasma choriogonadotropin ( test) de tection NEGATIVE NEGATIVE Complete blood count (CBC) with automate d white blood cell (WBC) differential - 08/31/17 18:49 Blood leukocytes automated count (number/volume) 11.5 10*3/uL 4.3-11.0 Blood erythrocytes automated count (number/volume) 4.38 10*6/uL 4.35-5.85 Venous blood hemoglobin measurement (mass/volume) 15.5 g/dL 11.5-16.0 Blood hematocrit (volume fraction) 43 % 35-52 Automated erythrocyte mean corpuscular volume 98 [ foz_us] 80-99 Automated erythrocyte mean corpuscular h emoglobin (mass per erythrocyte) 35 pg 25-34 Automated erythrocyte mean corpuscular h emoglobin concentration measurement (mass/volume) 36 g/dL 32-36 Automated erythrocyte distribution width ratio 13. 0 % 10.0- 14.5 Automated blood platelet count [...] 10*3 1.0-4.0 Blood monocytes automated count (number/volume) 0. 7 10*3 0.0-1.0 Automated eosinophil count 0.0 10*3/uL 0 .0-0.3 Automated blood basophil count (count/volume) 0.0 10*3/uL 0.0-0.1 Comprehensive metabolic panel - 08/31/17 18:49 Serum or plasma sodium measurement (moles/volume) 141 mmol/L 135-145 Serum or plasma potassium measurement (moles/volume) 3.7 mmol/L 3.6-5.0 Serum or plasma chloride measurement (moles/volume) 114 mmol/L 98-107 Carbon dioxide 17 mmol/L 21-32 Serum or plasma anion gap determination (moles/volume) 10 mmol/L 5-14 Serum or plasma urea nitrogen measurement (mass/volume ) 12 mg/dL 7-18 Serum or plasma creatinine measurement (mass/volume) 0.68 mg/dL 0.60-1.30 Serum or plasma urea nitrogen/creatinine mass ratio 18 NRG Serum or plasma creatinine measurement w ith calculation of estimated glomerular filtration rate > NRG Serum or plasma glucose measurement (mass/volume) 87 mg/dL 70-105 Serum or plasma calcium measurement (mass/volume) 9.2 mg/dL 8.5-10.1 Serum or plasma total bilirubin measurement (mass/volu me) 0.3 mg/dL 0.1-1.0 Serum or plasma alkaline phosphatase adryan surement (enzymatic activity/volume) 57 U/L 40-136 Serum or plasma aspartate aminotransfera se measurement (enzymatic activity/volume) 13 U/L 5-34 Serum or plasma alanine aminotransferase measurement (enzymatic activity/volume) 13 U/L 0-55 Serum or plasma protein measurement (mass/volume) 7.0 g/dL 6.4-8.2 Serum or plasma albumin measurement (mass/volume) 4.4 g/dL 3.2-4.5 Lipase - 08/31/17 18:49 Lipase 17 U/L 8-78 Complete urinalysis with reflex to cultu re - 08/31/17 18:50 Urine color determination YELLOW NRG Urine clarity determination CLEAR NR G Urine pH measurement by test strip 5 5-9 Specific gravity of urine by test strip 1.025 1.016-1.022 Urine protein assay by test strip, semi-quantitative 1+ NEGATIVE Urine glucose detection by automated test strip NE GATIVE NEGATIVE Erythrocytes detection in urine sediment by light micr oscopy 5+ NEGATIVE Urine ketones detection by automated test strip NE GATIVE NEGATIVE Urine nitrite detection by test strip NEGATIVE NEGATIVE Urine total bilirubin detection by test strip NEGA TIVE NEGATIVE Urine urobilinogen measurement by automated test strip (mass/volume) NORMAL NORMAL Urine leukocyte esterase detection by dipstick 1+ NEGATIVE Automated urine sediment erythrocyte cou nt by microscopy (number/high power field) [HPF] NRG Automated urine sediment leukocyte count by microscopy (number/high power field) NONE NRG Bacteria detection in urine sediment by light microsco py TRACE NRG Squamous epithelial cells detection in u rine sediment by light microscopy 2-5 NRG Crystals detection in urine sediment by light microsco py NONE NRG Casts detection in urine sediment by light microscopy NONE NRG Mucus detection in urine sediment by light microscopy SMALL NRG Complete urinalysis with reflex to culture NO NRG Urine drug screening test - 08/31/17 18: 50 Urine phencyclidine detection by screening method NEGATIVE NEGATIVE Urine benzodiazepines detection by screening method POSITIVE NEGATIVE Urine cocaine detection NEGATIVE NEGATI VE Urine amphetamines detection by screening method N EGATIVE NEGATIVE Urine methamphetamine detection by screening method NEGATIVE NEGATIVE Urine cannabinoids detection by screening method N EGATIVE NEGATIVE Urine opiates detection by screening method NEGATI VE NEGATIVE Urine barbiturates detection POSITIVE N EGATIVE Screening urine tricyclic antidepressants detection NEGATIVE NEGATIVE Urine methadone detection by screening method NEGA TIVE NEGATIVE Urine oxycodone detection NEGATIVE NEGA TIVE Urine propoxyphene detection NEGATIVE N EGATIVE Complete urinalysis with reflex to cultu re - 10/31/17 20:13 Urine color determination YELLOW NRG Urine clarity determination CLEAR NR G Urine pH measurement by test strip 6 5-9 Specific gravity of urine by test strip 1.025 1.016-1.022 Urine protein assay by test strip, semi-quantitative 3+ NEGATIVE Urine glucose detection by automated test strip NE GATIVE NEGATIVE Erythrocytes detection in urine sediment by light micr oscopy 2+ NEGATIVE Urine ketones detection by automated test strip NE GATIVE NEGATIVE Urine nitrite detection by test strip NEGATIVE NEGATIVE Urine total bilirubin detection by test strip NEGA TIVE NEGATIVE Urine urobilinogen measurement by automated test strip (mass/volume) NORMAL NORMAL Urine leukocyte esterase detection by dipstick 1+ NEGATIVE Automated urine sediment erythrocyte cou nt by microscopy (number/high power field) RARE NRG Automated urine sediment leukocyte count by microscopy (number/high power field) [HPF] NRG Bacteria detection in urine sediment by light microsco py TRACE NRG Crystals detection in urine sediment by light microsco py NONE NRG Casts detection in urine sediment by light microscopy NONE NRG Mucus detection in urine sediment by light microscopy LARGE NRG Complete urinalysis with reflex to culture NO NRG Chlamydia DNA amp probe, urine - 8 20:13 Chlamydia DNA amp probe, urine Not Detected Not Detected Urine Neisseria gonorrhoeae DNA assay - 10/31/17 20:13 Gonorrhea amp DNA-urine Not Detected No t Detected Complete urinalysis with reflex to cultu re - 11/20/17 19:17 Urine color determination YELLOW NRG Urine clarity determination MUCOUS NR G Urine pH measurement by test strip 8 5-9 Specific gravity of urine by test strip 1.010 1.016-1.022 Urine protein assay by test strip, semi-quantitative 2+ NEGATIVE Urine glucose detection by automated test strip NE GATIVE NEGATIVE Erythrocytes detection in urine sediment by light micr oscopy NEGATIVE NEGATIVE Urine ketones detection by automated test strip NE GATIVE NEGATIVE Urine nitrite detection by test strip NEGATIVE NEGATIVE Urine total bilirubin detection by test strip NEGA TIVE NEGATIVE Urine urobilinogen measurement by automated test strip (mass/volume) NORMAL NORMAL Urine leukocyte esterase detection by dipstick 1+ NEGATIVE Automated urine sediment erythrocyte cou nt by microscopy (number/high power field) NONE NRG Automated urine sediment leukocyte count by microscopy (number/high power field) [HPF] NRG Bacteria detection in urine sediment by light microsco py FEW NRG Squamous epithelial cells detection in u rine sediment by light microscopy 2-5 NRG Crystals detection in urine sediment by light microsco py PRESENT NRG Casts detection in urine sediment by light microscopy NONE NRG Mucus detection in urine sediment by light microscopy LARGE NRG Complete urinalysis with reflex to culture NO NRG Amorphous sediment detection in urine sediment by ligh t microscopy LARGE VANESA PHOSPHATE NRG Urine drug screening test - 11/20/17 19: 17 Urine phencyclidine detection by screening method NEGATIVE NEGATIVE Urine benzodiazepines detection by screening method POSITIVE NEGATIVE Urine cocaine detection NEGATIVE NEGATI VE Urine amphetamines detection by screening method N EGATIVE NEGATIVE Urine methamphetamine detection by screening method NEGATIVE NEGATIVE Urine cannabinoids detection by screening method N EGATIVE NEGATIVE Urine opiates detection by screening method NEGATI VE NEGATIVE Urine barbiturates detection POSITIVE N EGATIVE Screening urine tricyclic antidepressants detection NEGATIVE NEGATIVE Urine methadone detection by screening method NEGA TIVE NEGATIVE Urine oxycodone detection NEGATIVE NEGA TIVE Urine propoxyphene detection NEGATIVE N EGATIVE Complete blood count (CBC) with automate d white blood cell (WBC) differential - 11/20/17 19:29 Blood leukocytes automated count (number/volume) 8.9 10*3/uL 4.3-11.0 Blood erythrocytes automated count (number/volume) 3.79 10*6/uL 4.35-5.85 Venous blood hemoglobin measurement (mass/volume) 12.9 g/dL 11.5-16.0 Blood hematocrit (volume fraction) 38 % 35-52 Automated erythrocyte mean corpuscular volume 101 [foz_us] 80-99 Automated erythrocyte mean corpuscular h emoglobin (mass per erythrocyte) 34 pg 25-34 Automated erythrocyte mean corpuscular h emoglobin concentration measurement (mass/volume) 34 g/dL 32-36 Automated erythrocyte distribution width ratio 12. 5 % 10.0- 14.5 Automated blood platelet count [...] 10*3 1.0-4.0 Blood monocytes automated count (number/volume) 0. 4 10*3 0.0-1.0 Automated eosinophil count 0.1 10*3/uL 0 .0-0.3 Automated blood basophil count (count/volume) 0.1 10*3/uL 0.0-0.1 Comprehensive metabolic panel - 11/20/17 19:29 Serum or plasma sodium measurement (moles/volume) 137 mmol/L 135-145 Serum or plasma potassium measurement (moles/volume) 3.7 mmol/L 3.6-5.0 Serum or plasma chloride measurement (moles/volume) 111 mmol/L 98-107 Carbon dioxide 17 mmol/L 21-32 Serum or plasma anion gap determination (moles/volume) 9 mmol/L 5-14 Serum or plasma urea nitrogen measurement (mass/volume ) 12 mg/dL 7-18 Serum or plasma creatinine measurement (mass/volume) 0.65 mg/dL 0.60-1.30 Serum or plasma urea nitrogen/creatinine mass ratio 18 NRG Serum or plasma creatinine measurement w ith calculation of estimated glomerular filtration rate > NRG Serum or plasma glucose measurement (mass/volume) 85 mg/dL 70-105 Serum or plasma calcium measurement (mass/volume) 9.2 mg/dL 8.5-10.1 Serum or plasma total bilirubin measurement (mass/volu me) 0.2 mg/dL 0.1-1.0 Serum or plasma alkaline phosphatase adryan surement (enzymatic activity/volume) 47 U/L 40-136 Serum or plasma aspartate aminotransfera se measurement (enzymatic activity/volume) 11 U/L 5-34 Serum or plasma alanine aminotransferase measurement (enzymatic activity/volume) 12 U/L 0-55 Serum or plasma protein measurement (mass/volume) 6.7 g/dL 6.4-8.2 Serum or plasma albumin measurement (mass/volume) 4.1 g/dL 3.2-4.5 CALCIUM CORRECTED 9.1 mg/dL 8.5-10.1 THYROID STIMULATING HORMONE - 11/20/17 1 9:29 THYROID STIMULATING HORMONE 0.54 u[iU]/mL 0.35-4.94 TICK PANEL WITHOUT LYME - 11/20/17 19:29 Serum Ehrlichia chaffeensis IgG antibody detection <1:16 <1:16 Serum Ehrlichia chaffeensis IgM antibody detection <1:10 <1:10 Serum Rickettsia rickettsii IgG antibody assay (units/ volume) < <1:16 [place] spotted fever panel < <1:10 Francisella tularensis antibody assay 1:20 NRG Complete blood count (CBC) with automate d white blood cell (WBC) differential - 02/03/18 23:47 Blood leukocytes automated count (number/volume) 8.8 10*3/uL 4.3-11.0 Blood erythrocytes automated count (number/volume) 3.75 10*6/uL 4.35-5.85 Venous blood hemoglobin measurement (mass/volume) 11.9 g/dL 11.5-16.0 Blood hematocrit (volume fraction) 37 % 35-52 Automated erythrocyte mean corpuscular volume 98 [ foz_us] 80-99 Automated erythrocyte mean corpuscular h emoglobin (mass per erythrocyte) 32 pg 25-34 Automated erythrocyte mean corpuscular h emoglobin concentration measurement (mass/volume) 33 g/dL 32-36 Automated erythrocyte distribution width ratio 14. 7 % 10.0- 14.5 Automated blood platelet count [...] 10*3 1.0-4.0 Blood monocytes automated count (number/volume) 0. 6 10*3 0.0-1.0 Automated eosinophil count 0.1 10*3/uL 0 .0-0.3 Automated blood basophil count (count/volume) 0.0 10*3/uL 0.0-0.1 Serum or plasma choriogonadotropin (preg vanessa test) detection - 02/03/18 23:47 Serum or plasma choriogonadotropin ( test) de tection NEGATIVE NEGATIVE Comprehensive metabolic panel - 02/03/18 23:47 Serum or plasma sodium measurement (moles/volume) 141 mmol/L 135-145 Serum or plasma potassium measurement (moles/volume) 4.1 mmol/L 3.6-5.0 Serum or plasma chloride measurement (moles/volume) 111 mmol/L 98-107 Carbon dioxide 19 mmol/L 21-32 Serum or plasma anion gap determination (moles/volume) 11 mmol/L 5-14 Serum or plasma urea nitrogen measurement (mass/volume ) 13 mg/dL 7-18 Serum or plasma creatinine measurement (mass/volume) 0.74 mg/dL 0.60-1.30 Serum or plasma urea nitrogen/creatinine mass ratio 18 NRG Serum or plasma creatinine measurement w ith calculation of estimated glomerular filtration rate > NRG Serum or plasma glucose measurement (mass/volume) 104 mg/dL 70-105 Serum or plasma calcium measurement (mass/volume) 9.0 mg/dL 8.5-10.1 Serum or plasma total bilirubin measurement (mass/volu me) 0.1 mg/dL 0.1-1.0 Serum or plasma alkaline phosphatase adryan surement (enzymatic activity/volume) 41 U/L 40-136 Serum or plasma aspartate aminotransfera se measurement (enzymatic activity/volume) 19 U/L 5-34 Serum or plasma alanine aminotransferase measurement (enzymatic activity/volume) 12 U/L 0-55 Serum or plasma protein measurement (mass/volume) 6.6 g/dL 6.4-8.2 Serum or plasma albumin measurement (mass/volume) 3.8 g/dL 3.2-4.5 CALCIUM CORRECTED 9.2 mg/dL 8.5-10.1 Magnesium - 02/03/18 23:47 Magnesium 2.0 mg/dL 1.8-2.4 Serum or plasma creatine kinase measurem ent (enzymatic activity/volume) - 02/03/18 23:47 Serum or plasma creatine kinase measurem ent (enzymatic activity/volume) 75 U/L 29-168 Serum or plasma ethanol measurement (mas s/volume) - 02/03/18 23:47 Serum or plasma ethanol measurement (mass/volume) < mg/dL <10 Urine drug screening test - 02/04/18 00: 05 Urine phencyclidine detection by screening method NEGATIVE NEGATIVE Urine benzodiazepines detection by screening method POSITIVE NEGATIVE Urine cocaine detection NEGATIVE NEGATI VE Urine amphetamines detection by screening method N EGATIVE NEGATIVE Urine methamphetamine detection by screening method NEGATIVE NEGATIVE Urine cannabinoids detection by screening method N EGATIVE NEGATIVE Urine opiates detection by screening method NEGATI VE NEGATIVE Urine barbiturates detection POSITIVE N EGATIVE Screening urine tricyclic antidepressants detection NEGATIVE NEGATIVE Urine methadone detection by screening method NEGA TIVE NEGATIVE Urine oxycodone detection NEGATIVE NEGA TIVE Urine propoxyphene detection NEGATIVE N EGATIVE Complete urinalysis with reflex to cultu re - 02/04/18 00:05 Urine color determination YELLOW NRG Urine clarity determination CLEAR NR G Urine pH measurement by test strip 6 5-9 Specific gravity of urine by test strip 1.025 1.016-1.022 Urine protein assay by test strip, semi-quantitative 2+ NEGATIVE Urine glucose detection by automated test strip NE GATIVE NEGATIVE Erythrocytes detection in urine sediment by light micr oscopy NEGATIVE NEGATIVE Urine ketones detection by automated test strip NE GATIVE NEGATIVE Urine nitrite detection by test strip NEGATIVE NEGATIVE Urine total bilirubin detection by test strip NEGA TIVE NEGATIVE Urine urobilinogen measurement by automated test strip (mass/volume) NORMAL NORMAL Urine leukocyte esterase detection by dipstick 1+ NEGATIVE Automated urine sediment erythrocyte cou nt by microscopy (number/high power field) NONE NRG Automated urine sediment leukocyte count by microscopy (number/high power field) RARE NRG Bacteria detection in urine sediment by light microsco py FEW NRG Squamous epithelial cells detection in u rine sediment by light microscopy 2-5 NRG Crystals detection in urine sediment by light microsco py NONE NRG Casts detection in urine sediment by light microscopy NONE NRG Mucus detection in urine sediment by light microscopy LARGE NRG Complete urinalysis with reflex to culture NO NRG Complete urinalysis with reflex to cultu re - 02/07/18 17:28 Urine color determination YELLOW NRG Urine clarity determination SLIGHTLY CLOUDY NRG Urine pH measurement by test strip 6.5 5-9 Specific gravity of urine by test strip 1.015 1.016-1.022 Urine protein assay by test strip, semi-quantitative 2+ NEGATIVE Urine glucose detection by automated test strip NE GATIVE NEGATIVE Erythrocytes detection in urine sediment by light micr oscopy NEGATIVE NEGATIVE Urine ketones detection by automated test strip 1+ NEGATIVE Urine nitrite detection by test strip NEGATIVE NEGATIVE Urine total bilirubin detection by test strip 1+ NEGATIVE Urine urobilinogen measurement by automated test strip (mass/volume) 4 mg/dL NORMAL Urine leukocyte esterase detection by dipstick 1+ NEGATIVE Automated urine sediment erythrocyte cou nt by microscopy (number/high power field) RARE NRG Automated urine sediment leukocyte count by microscopy (number/high power field) [HPF] NRG Bacteria detection in urine sediment by light microsco py NEGATIVE NRG Squamous epithelial cells detection in u rine sediment by light microscopy 2-5 NRG Crystals detection in urine sediment by light microsco py NONE NRG Casts detection in urine sediment by light microscopy NONE NRG Mucus detection in urine sediment by light microscopy LARGE NRG Complete urinalysis with reflex to culture NO NRG Complete blood count (CBC) with automate d white blood cell (WBC) differential - 02/07/18 17:37 Blood leukocytes automated count (number/volume) 9.7 10*3/uL 4.3-11.0 Blood erythrocytes automated count (number/volume) 4.45 10*6/uL 4.35-5.85 Venous blood hemoglobin measurement (mass/volume) 14.0 g/dL 11.5-16.0 Blood hematocrit (volume fraction) 42 % 35-52 Automated erythrocyte mean corpuscular volume 94 [ foz_us] 80-99 Automated erythrocyte mean corpuscular h emoglobin (mass per erythrocyte) 32 pg 25-34 Automated erythrocyte mean corpuscular h emoglobin concentration measurement (mass/volume) 34 g/dL 32-36 Automated erythrocyte distribution width ratio 14. 3 % 10.0- 14.5 Automated blood platelet count [...] 10*3 1.0-4.0 Blood monocytes automated count (number/volume) 0. 5 10*3 0.0-1.0 Automated eosinophil count 0.1 10*3/uL 0 .0-0.3 Automated blood basophil count (count/volume) 0.1 10*3/uL 0.0-0.1 Comprehensive metabolic panel - 02/07/18 17:37 Serum or plasma sodium measurement (moles/volume) 141 mmol/L 135-145 Serum or plasma potassium measurement (moles/volume) 3.7 mmol/L 3.6-5.0 Serum or plasma chloride measurement (moles/volume) 105 mmol/L 98-107 Carbon dioxide 25 mmol/L 21-32 Serum or plasma anion gap determination (moles/volume) 11 mmol/L 5-14 Serum or plasma urea nitrogen measurement (mass/volume ) 8 mg/dL 7-18 Serum or plasma creatinine measurement (mass/volume) 0.66 mg/dL 0.60-1.30 Serum or plasma urea nitrogen/creatinine mass ratio 12 NRG Serum or plasma creatinine measurement w ith calculation of estimated glomerular filtration rate > NRG Serum or plasma glucose measurement (mass/volume) 96 mg/dL 70-105 Serum or plasma calcium measurement (mass/volume) 10.3 mg/dL 8.5-10.1 Serum or plasma total bilirubin measurement (mass/volu me) 0.3 mg/dL 0.1-1.0 Serum or plasma alkaline phosphatase adryan surement (enzymatic activity/volume) 62 U/L 40-136 Serum or plasma aspartate aminotransfera se measurement (enzymatic activity/volume) 14 U/L 5-34 Serum or plasma alanine aminotransferase measurement (enzymatic activity/volume) 13 U/L 0-55 Serum or plasma protein measurement (mass/volume) 8.1 g/dL 6.4-8.2 Serum or plasma albumin measurement (mass/volume) 4.9 g/dL 3.2-4.5 Lipase - 02/07/18 17:37 Lipase 25 U/L 8-78 Complete blood count (CBC) with automate d white blood cell (WBC) differential - 08/17/18 14:55 Blood leukocytes automated count (number/volume) 14.5 10*3/uL 4.3-11.0 Blood erythrocytes automated count (number/volume) 4.16 10*6/uL 4.35-5.85 Venous blood hemoglobin measurement (mass/volume) 13.1 g/dL 11.5-16.0 Blood hematocrit (volume fraction) 41 % 35-52 Automated erythrocyte mean corpuscular volume 97 [ foz_us] 80-99 Automated erythrocyte mean corpuscular h emoglobin (mass per erythrocyte) 31 pg 25-34 Automated erythrocyte mean corpuscular h emoglobin concentration measurement (mass/volume) 32 g/dL 32-36 Automated erythrocyte distribution width ratio 14. 3 % 10.0- 14.5 Automated blood platelet count (count/volume) 468 10*3/uL 130-400 Automated blood platelet mean volume measurement 9.5 [foz_us] 7.4-10.4 Automated blood neutrophils/100 leukocytes 61 % 42-75 Automated blood lymphocytes/100 leukocytes 31 % 12-44 Blood monocytes/100 leukocytes 6 % 0-12 Automated blood eosinophils/100 leukocytes 2 % 0-10 Automated blood basophils/100 leukocytes 0 % 0-10 Blood neutrophils automated count (number/volume) 8.9 10*3 1.8-7.8 Blood lymphocytes automated count (number/volume) 4.5 10*3 1.0-4.0 Blood monocytes automated count (number/volume) 0. 8 10*3 0.0-1.0 Automated eosinophil count 0.2 10*3/uL 0 .0-0.3 Automated blood basophil count (count/volume) 0.1 10*3/uL 0.0-0.1 Manual absolute plasma cell count - 08/08 14:55 Blood monocytes/100 leukocytes 7 % NRG Manual blood segmented neutrophils/100 leukocytes 65 % NRG Manual blood lymphocytes/100 leukocytes 27 % NRG Manual eosinophils/100 leukocytes in nose 2 % NRG Blood erythrocyte morphology finding identification NORMAL NRG Methicillin resistant Staphylococcus aur eus (MRSA) screening culture - 11/03/18 09:04 Methicillin resistant Staphylococcus aureus (MRSA) scr eening culture NEG NRG Complete blood count (CBC) with automate d white blood cell (WBC) differential - 11/03/18 09:40 Blood leukocytes automated count (number/volume) 7.4 10*3/uL 4.3-11.0 Blood erythrocytes automated count (number/volume) 3.60 10*6/uL 4.35-5.85 Venous blood hemoglobin measurement (mass/volume) 11.3 g/dL 11.5-16.0 Blood hematocrit (volume fraction) 34 % 35-52 Automated erythrocyte mean corpuscular volume 95 [ foz_us] 80-99 Automated erythrocyte mean corpuscular h emoglobin (mass per erythrocyte) 31 pg 25-34 Automated erythrocyte mean corpuscular h emoglobin concentration measurement (mass/volume) 33 g/dL 32-36 Automated erythrocyte distribution width ratio 14. 7 % 10.0- 14.5 Automated blood platelet count (count/volume) 372 10*3/uL 130-400 Automated blood platelet mean volume measurement 9.2 [foz_us] 7.4-10.4 Automated blood neutrophils/100 leukocytes 48 % 42-75 Automated blood lymphocytes/100 leukocytes 44 % 12-44 Blood monocytes/100 leukocytes 5 % 0-12 Automated blood eosinophils/100 leukocytes 2 % 0-10 Automated blood basophils/100 leukocytes 1 % 0-10 Blood neutrophils automated count (number/volume) 3.5 10*3 1.8-7.8 Blood lymphocytes automated count (number/volume) 3.3 10*3 1.0-4.0 Blood monocytes automated count (number/volume) 0. 4 10*3 0.0-1.0 Automated eosinophil count 0.2 10*3/uL 0 .0-0.3 Automated blood basophil count (count/volume) 0.0 10*3/uL 0.0-0.1 Complete urinalysis with reflex to cultu re - 12/28/18 11:30 Urine color determination YELLOW NRG Urine clarity determination SLIGHTLY CLOUDY NRG Urine pH measurement by test strip 6.5 5-9 Specific gravity of urine by test strip 1.010 1.016-1.022 Urine protein assay by test strip, semi-quantitative 1+ NEGATIVE Urine glucose detection by automated test strip NE GATIVE NEGATIVE Erythrocytes detection in urine sediment by light micr oscopy 5+ NEGATIVE Urine ketones detection by automated test strip NE GATIVE NEGATIVE Urine nitrite detection by test strip NEGATIVE NEGATIVE Urine total bilirubin detection by test strip NEGA TIVE NEGATIVE Urine urobilinogen measurement by automated test strip (mass/volume) NORMAL NORMAL Urine leukocyte esterase detection by dipstick 1+ NEGATIVE Automated urine sediment erythrocyte cou nt by microscopy (number/high power field) TNTC NRG Automated urine sediment leukocyte count by microscopy (number/high power field) NONE NRG Bacteria detection in urine sediment by light microsco py NEGATIVE NRG Squamous epithelial cells detection in u rine sediment by light microscopy 5-10 NRG Crystals detection in urine sediment by light microsco py NONE NRG Casts detection in urine sediment by light microscopy NONE NRG Mucus detection in urine sediment by light microscopy NEGATIVE NRG Complete urinalysis with reflex to culture NO NRG Urine drug screening test - 12/28/18 13: 30 Urine phencyclidine detection by screening method NEGATIVE NEGATIVE Urine benzodiazepines detection by screening method NEGATIVE NEGATIVE Urine cocaine detection NEGATIVE NEGATI VE Urine amphetamines detection by screening method N EGATIVE NEGATIVE Urine methamphetamine detection by screening method NEGATIVE NEGATIVE Urine cannabinoids detection by screening method P OSITIVE NEGATIVE Urine opiates detection by screening method NEGATI VE NEGATIVE Urine barbiturates detection NEGATIVE N EGATIVE Screening urine tricyclic antidepressants detection NEGATIVE NEGATIVE Urine methadone detection by screening method NEGA TIVE NEGATIVE Urine oxycodone detection NEGATIVE NEGA TIVE Urine propoxyphene detection NEGATIVE N EGATIVE Microscopic examination by wet preparati on - 12/28/18 14:45 WET PREP RESULTS NO YEAST OBSERVED, NO TRICH OMONAS OBSERVED NRG Chlamydia trachomatis DNA detection by p robe and signal amplification method - 12/28/18 14:45 Chlamydia trachomatis DNA detection by p robe and target amplification method Not Detected Not Detected Neisseria gonorrhoeae DNA detection by p robe and signal amplification method - 12/28/18 14:45 Gonorrhea amp DNA-urine Not Detected No t Detected LIPID PANEL - 05/19/20 12:57 CHOLESTEROL, TOTAL 165 mg/dL <200 HDL CHOLESTEROL 54 mg/dL > OR = 50 TRIGLYCERIDES 67 mg/dL <150 LDL-CHOLESTEROL 96 mg/dL (calc) NRG CHOL/HDLC RATIO 3.1 (calc) <5.0 NON HDL CHOLESTEROL 111 mg/dL (calc) <13 0 CMP - 07/27/19 12:57 GLUCOSE 90 mg/dL 65-99 UREA NITROGEN (BUN) 8 mg/dL 7-25 CREATININE 0.61 mg/dL 0.50-1.10 eGFR NON-AFR. [facility] 124 mL/min/1.73m2 > OR = 60 eGFR 144 mL/min/1.73m2 > OR = 60 BUN/CREATININE RATIO NOT APPLICABLE (calc) 6-22 SODIUM 139 mmol/L 135-146 POTASSIUM 4.4 mmol/L 3.5-5.3 CHLORIDE 107 mmol/L 98-110 CARBON DIOXIDE 23 mmol/L 20-32 CALCIUM 9.3 mg/dL 8.6-10.2 PROTEIN, TOTAL 7.0 g/dL 6.1-8.1 ALBUMIN 4.6 g/dL 3.6-5.1 GLOBULIN 2.4 g/dL (calc) 1.9-3.7 ALBUMIN/GLOBULIN RATIO 1.9 (calc) 1.0-2. 5 BILIRUBIN, TOTAL 0.2 mg/dL 0.2-1.2 ALKALINE PHOSPHATASE 51 U/L 31-125 AST 16 U/L 10-30 ALT 13 U/L 6-29 CBC - 07/27/19 12:57 WHITE BLOOD CELL COUNT 10.2 Thousand/uL 3.8-10.8 RED BLOOD CELL COUNT 4.31 Million/uL 3.8 0-5.10 HEMOGLOBIN 13.8 g/dL 11.7-15.5 HEMATOCRIT 42.0 % 35.0-45.0 MCV 97.4 fL 80.0-100.0 MCH 32.0 pg 27.0-33.0 MCHC 32.9 g/dL 32.0-36.0 RDW 13.9 % 11.0-15.0 PLATELET COUNT 365 Thousand/uL 140-400 MPV 10.4 fL 7.5-12.5 ABSOLUTE NEUTROPHILS 5926 cells/uL 1500- 7800 ABSOLUTE LYMPHOCYTES 3356 cells/uL 850-3 900 ABSOLUTE MONOCYTES 632 cells/uL 200-950 ABSOLUTE EOSINOPHILS 214 cells/uL 15-500 ABSOLUTE BASOPHILS 71 cells/uL 0-200 NEUTROPHILS 58.1 % NRG LYMPHOCYTES 32.9 % NRG MONOCYTES 6.2 % NRG EOSINOPHILS 2.1 % NRG BASOPHILS 0.7 % NRG TSH - 07/27/19 12:57 TSH 0.95 mIU/L NRG VITAMIN D, 25-H - 07/27/19 12:57 VITAMIN D,25-OH,TOTAL,IA 12 ng/mL 30-10 0 Encounters ACCT No. Visit Date/Time Discharge Status Pt. Type Provider Facility Loc./Unit Complaint [id number] 03/20/2016 21:06:00 03/20/2016 22:15: 00 DIS Outpatient Yesica Mg [id number] 03/18/2019 13:38:00 23:59:59 CLS Outpatient TALA GONZALEZ DO [facility] RAD IUD STRINGS LOST [id number] 03/13/2019 18:36:00 20:21:00 DIS Emergency JUAN MIGUEL JIMENEZ APRN [facility] ER MIGRAINE [id number] 12/28/2018 12:54:00 15:50:00 DIS Emergency STACEY WU [facility] ER CRAMPS;LOWER BACK PAIN [id number] 11/03/2018 08:46:00 13:05:00 DIS Outpatient TALA GONZALEZ DO [facility] SDC ENDOMETRIOSIS [id number] 10/28/2018 05:31:00 10:34:00 DIS Outpatient TALA GONZALEZ DO [facility] PREOP ENDOMETRIOSIS [id number] 08/17/2018 14:40:00 23:59:59 CLS Outpatient WISAM SHAH DO [facility] LAB CHEST X-RAY,CBC LAB [id number] 08/13/2018 05:31:00 10:28:00 DIS Outpatient TALA GONZALEZ DO [facility] PREOP ENDOMETRIOSIS [id number] 08/10/2018 19:19:00 06/03/2 019 21:09:00 DIS Emergency PANCHITO ANTOINE [facility] ER BACK AND CHEST PAIN [id number] 05/12/2018 12:01:00 019 23:59:59 [facility] Outpatient WISAM SHAH DO [facility] RAD LOWER ABD PAIN, HAS IUD [id number] 04/12/2018 16:57:00 019 18:08:00 DIS Emergency PANCHITO ANTOINE [facility] ER JAW/NECK PAIN [id number] 02/07/2018 17:02:00 018 20:15:00 DIS Emergency PANCHITO ANTOINE [facility] ER WEAKNESS [id number] 02/03/2018 23:43:00 018 01:35:00 DIS Emergency YE CARBALLO DO [facility] ER SEIZURE [id number] 01/25/2018 20:45:00 018 22:48:00 DIS Emergency LINCOLN YE QUINTANA [facility] ER MIGRAINE, VOMITTING [id number] 12/23/2017 09:05:00 018 12:22:00 DIS Emergency PANCHITO ANTOINE [facility] ER MIGRAINE [id number] 11/20/2017 17:49:00 018 20:32:00 DIS Emergency JUAN MIGUEL JIMENEZ APRN [facility] ER CONSTANTLY TIRED,FEELS LIKE SHE IS GOING TO FAINT [id number] 11/17/2017 18:29:00 018 19:28:00 DIS Emergency PANCHITO ANTOINE [facility] ER MIGRAINE ALL DAY [id number] 10/31/2017 19:52:00 018 21:25:00 DIS Emergency ALINE YUN, BILLY Roy [facility] ER ABD PAIN;PAIN W ITH URINATION [id number] 10/26/2017 19:14:00 018 19:43:00 DIS Emergency PANCHITO ANTOINE [facility] ER TICK BITE [id number] 08/31/2017 18:20:00 018 20:05:00 DIS Emergency JUAN MIGUEL JIMENEZ EQUINE BREEDER [facility] ER ABD PAIN [id number] 07/11/2017 20:11:00 018 21:00:00 DIS Emergency JUAN MIGUEL JIMENEZ APRN [facility] ER MIGRAINE X 1 WK [id number] 04/22/2017 13:22:00 018 13:49:00 DIS Emergency JUAN MIGUEL JIMENEZ EQUINE BREEDER [facility] ER LEFT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
[2019-08-08 16:17] LABS: BASOPHILS % (AUTO) 0 % (0-10); EOSINOPHILS # (AUTO) 0.1 10^3/uL (0.0-0.3); EOSINOPHILS % (AUTO) 1 % (0-10); HEMATOCRIT 41 % (35-52); HEMOGLOBIN 13.9 G/DL (11.5-16.0); LYMPHOCYTES # (AUTO) 3.3 X 10^3 (1.0-4.0); LYMPHOCYTES % (AUTO) 31 % (12-44); MEAN CORPUSCULAR HEMOGLOBIN 33 PG (25-34); MEAN CORPUSCULAR HGB CONC 34 G/DL (32-36); MEAN CORPUSCULAR VOLUME 97 FL (80-99); MEAN PLATELET VOLUME 10.3 FL (7.4-10.4); MONOCYTES # (AUTO) 0.6 X 10^3 (0.0-1.0); MONOCYTES % (AUTO) 6 % (0-12); NEUTROPHILS # (AUTO) 6.5 X 10^3 (1.8-7.8); NEUTROPHILS % (AUTO) 62 % (42-75); PLATELET COUNT 318 10^3/uL (130-400); RED CELL DISTRIBUTION WIDTH 14.9 % (10.0-14.5); WHITE BLOOD COUNT 10.5 10^3/uL (4.3-11.0)
[2019-08-08 16:58] LABS: ALBUMIN 4.5 GM/DL (3.2-4.5); CHLORIDE 105 MMOL/L (98-107); POTASSIUM 3.4 MMOL/L (3.6-5.0); SODIUM 138 MMOL/L (135-145)
[2019-08-08 16:59] LABS: CALCIUM 9.7 MG/DL (8.5-10.1)
[2019-08-08 17:00] LABS: GLUCOSE 108 MG/DL (70-105)
[2019-08-08 17:01] LABS: CARBON DIOXIDE 21 MMOL/L (21-32); TOTAL PROTEIN 7.3 GM/DL (6.4-8.2)
[2019-08-08 17:02] LABS: BILIRUBIN,TOTAL 0.5 MG/DL (0.1-1.0)
[2019-08-08 17:04] LABS: ALKALINE PHOSPHATASE 48 U/L (40-136); CREATININE SERUM 0.72 MG/DL (0.60-1.30); GFR ESTIMATED > 60
[2019-08-08 17:05] LABS: BUN/CREATININE RATIO 15
[2019-08-08 17:07] LABS: ALANINE AMINOTRANSFERASE 15 U/L (0-55); MAGNESIUM 1.8 MG/DL (1.6-2.4)
[2019-08-08 17:28] LABS: TSH (THYROID ANALYZER) 0.19 UIU/ML (0.35-4.94)
[2019-08-08 17:34] LABS: CLARITY,URINE CLEAR; COLOR,URINE YELLOW; GLUCOSE, URINE (UA) NEGATIVE (NEGATIVE); KETONES,URINE TRACE (NEGATIVE); LEUKOCYTE ESTERASE ,URINE NEGATIVE (NEGATIVE); NITRITE,URINE NEGATIVE (NEGATIVE); PROTEIN,URINE 1+ (NEGATIVE)
[2019-08-08 17:43] LABS: BACTERIA,URINE MODERATE /HPF; BILIRUBIN,URINE 1+ (NEGATIVE); WBC,URINE 0-2 /HPF
[2019-08-08 17:53] LABS: AMPHETAMINE SCREEN, URINE POSITIVE (NEGATIVE); BARBITURATE SCREEN URINE NEGATIVE (NEGATIVE); BENZODIAZEPINES SCREEN URINE POSITIVE (NEGATIVE); CANNABINOID SCREEN, URINE POSITIVE (NEGATIVE); COCAINE SCREEN URINE NEGATIVE (NEGATIVE); METHADONE STAT NEGATIVE (NEGATIVE); METHAMPHETAMINE SCREEN URINE S POSITIVE (NEGATIVE); OPIATE SCREEN URINE NEGATIVE (NEGATIVE); OXYCODONE STAT NEGATIVE (NEGATIVE); PROPOXYPHENE STAT NEGATIVE (NEGATIVE); TRICYCLIC ANTIDEPRESSANTS SCRE NEGATIVE (NEGATIVE)
[2019-08-08 18:41] LABS: FREE T4 (FREE THYROXINE) 1.09 NG/DL (0.70-1.48)
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
[2019-08-08 19:17] VITALS: BP 122/70
== END 2019-08-08 19:17 | disposition home or self-care (01) ==
LOC: EDUNIT# 15:38 → ER 15:39
DX: R42 Dizziness and giddiness (principal); F15.90 Other stimulant use, unspecified, uncomplicated; G43.909 Migraine, unspecified, not intractable, without status migrainosus; K21.9 Gastro-esophageal reflux disease without esophagitis; F41.9 Anxiety disorder, unspecified; F31.9 Bipolar disorder, unspecified; F17.210 Nicotine dependence, cigarettes, uncomplicated; Z88.0 Allergy status to penicillin; Z88.8 Allergy status to other drugs, medicaments and biological substances
CPT/HCPCS: 80053; 80306; 81000; 83735; 84439; 84443; 84703; 85025; 93005; 99284; G0480; 36415; 80320

== ENCOUNTER 2020-04-09 09:59 | Emergency (ER) | payer MEDICARE, MEDICAID ==
[~2020-04-09] VITALS: Ht 162 cm; Wt 52.0 kg
[~2020-04-09 09:59] MED LIST changes: -CLIN300C11 PO; +CLIN300C12 PO; -ESCI10TA55; +ESCI10TA64
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
[2020-04-09 10:36] LABS: BILIRUBIN,URINE NEGATIVE (NEGATIVE); CLARITY,URINE CLOUDY; COLOR,URINE YELLOW; GLUCOSE, URINE (UA) NEGATIVE (NEGATIVE); KETONES,URINE NEGATIVE (NEGATIVE); LEUKOCYTE ESTERASE ,URINE NEGATIVE (NEGATIVE); NITRITE,URINE NEGATIVE (NEGATIVE); PROTEIN,URINE TRACE (NEGATIVE)
[2020-04-09 10:46] LABS: WBC,URINE 0-2 /HPF
[2020-04-09 10:47] LABS: AMORPHOUS SEDIMENT,UR MOD AMOR URATES /LPF; BACTERIA,URINE FEW /HPF
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
[2020-04-09] MEDS ORDERED: ACETAMINOPHEN 500 MG TAB (TYLENOL) PO ONE (11:30)
[2020-04-09 11:40] VITALS: BP 110/73
== END 2020-04-09 11:40 | disposition home or self-care (01) ==
LOC: EDUNIT# 09:59 → ER 10:00
DX: S00.83XA Contusion of other part of head, initial encounter (principal); R10.9 Unspecified abdominal pain; M79.674 Pain in right toe(s); R40.2410 Glasgow coma scale score 13-15, unspecified time; F41.9 Anxiety disorder, unspecified; K21.9 Gastro-esophageal reflux disease without esophagitis; F32.9 Major depressive disorder, single episode, unspecified; F17.210 Nicotine dependence, cigarettes, uncomplicated; Z88.0 Allergy status to penicillin; Z88.8 Allergy status to other drugs, medicaments and biological substances; Y04.8XXA Assault by other bodily force, initial encounter
CPT/HCPCS: 81000

== ENCOUNTER → 2020-04-28 | Outpatient (CLI) | payer MEDICARE, MEDICAID ==
[~2020-04-28] MED LIST changes: +BUTA-235; -BUTA1TAB9; +ESCI-2; -ESCI10TA64; -METO10TA3; +MTC10T
--- NOTE | 2020-04-28 16:33 | Diagnostic Imaging Report ---
INDICATION: anatomy survey. TECHNIQUE: Multiple real-time grayscale images were obtained over the gravid uterus. COMPARISON: None. FINDINGS: There is a single live intrauterine in the cephalic position. The placenta is posterior in location, and there is no evidence of previa or placental abruption. The tip of the placenta is 6.8 cm above the internal cervical os. The CAROLINE measures 12.24 cm. The cervix measures 4.6 cm in length. anatomy survey was performed and the following structures are visualized and normal: Four-chamber heart, stomach, intracranial contents, spine, urinary bladder, kidneys, profile, lips/nose, right ventricular outflow tract, left ventricular outflow tract and three-vessel cord. Due to advanced gestational age, the maternal adnexa are suboptimally evaluated. Biometrical measurements are as follows: Biparietal 5.18 cm, age 21 weeks 5 days. Head circumference 19.36 cm, age 21 weeks 5 days. Abdominal circumference 16.75 cm, age 21 weeks 6 days. Femur length 3.58 cm, age 21 weeks 3 days. Sonographic estimate age: 21 weeks 5 days. Sonographic estimated date of delivery: 09/03/20. Estimated Weight: 435 gm (+/- 64 gm). LMP percentile: 88%. heart rate: 158 beats per minute. number: 1 of 1. IMPRESSION: 1. Single live intrauterine with normal anatomy survey. Dictated by: Dictated on workstation # [id number]
== END ==
LOC: RAD 13:51
PROVIDERS: ATTEND Obstetrics & Gynecology
DX: Z34.90 Encounter for supervision of normal pregnancy, unspecified, unspecified trimester (principal); Z3A.00 Weeks of gestation of pregnancy not specified
CPT/HCPCS: 76805

== ENCOUNTER 2020-05-03 22:59 | Outpatient (CLI) | payer MEDICARE, MEDICAID ==
[~2020-05-03] VITALS: Ht 162.6 cm; Wt 56.8 kg
[2020-05-03] MEDS ORDERED: BUTA1CAP45 PO (23:14)
[2020-05-03] MEDS ORDERED: PREN-142 PO (23:14)
[2020-05-03 23:33] VITALS: BP 112/58
[2020-05-03 23:33] LABS: BILIRUBIN,URINE NEGATIVE (NEGATIVE); CLARITY,URINE CLEAR; COLOR,URINE YELLOW; GLUCOSE, URINE (UA) NEGATIVE (NEGATIVE); KETONES,URINE NEGATIVE (NEGATIVE); LEUKOCYTE ESTERASE ,URINE NEGATIVE (NEGATIVE); NITRITE,URINE NEGATIVE (NEGATIVE); PH,URINE 7.5 (5-9); PROTEIN,URINE NEGATIVE (NEGATIVE)
[2020-05-03 23:40] LABS: AMORPHOUS SEDIMENT,UR MOD AMOR PHOSPHATE /LPF; BACTERIA,URINE TRACE /HPF; SQUAMOUS EPITHELIAL CELL,UR RARE /HPF
--- NOTE | 2020-05-04 08:32 | Physician Query-Final Dx ---
JOSE CRUZ IRWIN 05/04/20 0832: Clinic Account Progress/Dx Physician Query: Please give diagnosis Please include # weeks gestation Date of Service May 03, 2020 at 22:59 MARKEL RUIZ DO 05/04/202041: Clinic Account Progress/Dx DIAGNOSIS: Diagnosis 20 week IUP Low back pain JOSE CRUZ IRWIN May 04, 2020 08:32 MARKEL RUIZ DO May 04, 2020 20:42
== END 2020-05-04 00:09 | disposition home or self-care (01) ==
LOC: WSo 22:59 → LDRP 23:00 → WSo 05-04 00:09
PROVIDERS: ATTEND Obstetrics & Gynecology
DX: O26.892 Other specified pregnancy related conditions, second trimester (principal); Z3A.21 21 weeks gestation of pregnancy
CPT/HCPCS: 81000; 99213

== ENCOUNTER → 2020-08-25 | Outpatient (CLI) | payer MEDICARE, MEDICAID ==
[~2020-08-25] MED LIST changes: +BUTA1CAP45 PO; +FERR325T24 PO; +PREN-142 PO
--- NOTE | 2020-08-25 16:41 | Diagnostic Imaging Report ---
INDICATION: Small for gestational age. TECHNIQUE: Multiple real-time grayscale images were obtained over the gravid uterus. COMPARISON: 04/28/2020 FINDINGS: There is a single live intrauterine gestation in cephalic presentation. The cervix is not seen due to shadowing from the head. Measurements are given below. heart rate measures 150 BPM. The placenta appears mature and is located anteriorly without evidence of previa. The amniotic fluid index measures 9.0 cm. The biophysical profile score is 8 out of 8. Biometrical measurements are as follows: Biparietal 8.47 cm, age 34 weeks 1 days. Head circumference 29.44 cm, age 32 weeks 4 days. Abdominal circumference 29.63 cm, age 33 weeks 5 days. Femur length 6.82 cm, age 35 weeks 1 days. Sonographic estimate age: 34 weeks 0 days. Sonographic estimated date of delivery: 10/06/2020. Estimated Weight: 2313 gm (+/- 338 gm). LMP percentile: 2%. heart rate: 150 beats per minute. number: 1 of 1. IMPRESSION: 1. Single live intrauterine gestation measuring at 34 weeks and 0 days. This is smaller than the clinical dates of 37 weeks and 5 days. 2. Biophysical profile score of 8 out of 8. Dictated by: Dictated on workstation # [id number]
== END ==
LOC: RAD 11:25
PROVIDERS: ATTEND Obstetrics & Gynecology
DX: O26.93 Pregnancy related conditions, unspecified, third trimester (principal); Z3A.34 34 weeks gestation of pregnancy
CPT/HCPCS: 76805; 76819

== ENCOUNTER 2020-09-07 18:57 | Emergency (ER) | payer MEDICARE, MEDICAID ==
[~2020-09-07] VITALS: Ht 160 cm; Wt 54.4 kg
[2020-09-07 19:10] VITALS: BP 157/110
--- NOTE | 2020-09-07 19:55 | ED GU-Female ---
General Chief Complaint: Female 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 Stated Complaint: VAGINAL BLEEDING / 10 DAYS POST -VAGINAL DEL Nursing Triage Note: PT AMBULATE TO ROOM 02 WITH NEW BABY IN CAR SEAT WITH C/O VAGINAL BLEEDING. PT REPORTS SHE IS X10 DAYS POST VAGINAL DELIVERY AND AND HAS BEEN BLEEDING SINCE DATE OF DELIVERY. PT REPORTS USING X12 PADS PER DAY AND DENIES PADS ARE SATURATED WHEN CHANGED. PT REPORTS DIFFICULTY DELIVERY. Source: patient Exam Limitations: no limitations History of Present Illness Date Seen by Provider: Sep 07, 2020 Time Seen by Provider: 19:41 Initial Comments Patient is a 30-year-old female who is 10 days vaginal delivery with complications including "trapped placenta". Patient states that she bled quite a bit after her delivery and required 2 units of blood . She states since that time she is continued to have fairly heavy bleeding changing her pad 1 time an hour. She complains of continued abdominal cramping. No fevers. No other GI or complaints. She states she was just concerned about the amount of blood that she was still having and wanted to make sure that she did not have any persistent complications. Dr. Gonzalez is her SOLUTION STRATEGIST. She is scheduled for her 6 weeks checkup in another 4-1/2 weeks. No nausea, vomiting or genitourinary symptoms reported. Patient has been taking Tylenol and ibuprofen for the cramping. All other review of systems reviewed and negative except as stated. Timing/Duration: week Severity/Quality: moderate Location: suprapubic Radiation: suprapubic Associated Symptoms: abdominal pain (cramping) Allergies and Home Medications Allergies Coded Allergies: gabapentin (Verified Allergy, Severe, WEAKNESS, 08/13/18) sumatriptan (Unverified Allergy, Severe, ANAPHYLAXIS, 09/20/13) Penicillins (Unverified Allergy, Mild, HIVES, 08/13/18) sumatriptan succinate (Verified Adverse Reaction, Mild, 04/01/11) Home Medications Butalb/Acetaminophen/Caffeine 1 Each Capsule, 1 EACH PO PRN, (Reported) Ferrous Sulfate 325 Mg Tablet, 325 MG PO DAILY Prescribed by: TALA GONZALEZ on 08/29/20919 Ibuprofen 600 Mg Tablet, 600 MG PO Q6HR Prescribed by: TALA GONZALEZ on 08/29/20919 Vit No.124/Iron/FA 1 Each Tablet, 1 EACH PO DAILY, (Reported) Patient Home Medication List Home Medication List Reviewed: Yes Review of Systems Review of Systems Constitutional: see HPI EENTM: no symptoms reported Respiratory: no symptoms reported Cardiovascular: no symptoms reported Gastrointestinal: no symptoms reported Genitourinary: other (Vaginal bleeding) : No Past Uchxhhy-Plfcmq-[place] Hx Patient Social History Tobacco Use?: No Substance use?: Yes Substance type: Marijuana Substance frequency: Once in a while Alcohol Use?: No Pt feels they are or have been: No Immunizations Up To Date Tetanus Booster (TDap): Unknown PED Vaccines UTD: Yes Seasonal Allergies Seasonal Allergies: Yes Past Medical History Surgeries: Yes (SINUS, EXPL LAP, EAR TUBES, perineal tear repair, BLADDER) Abdominal, Appendectomy, Bladder Surgery, Ear Surgery, Eye Surgery Respiratory: Yes (08/10/18) Pneumonia Cardiac: No Neurological: Yes Headaches /Migraines 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 Disorders: No Female 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 Disorders: Denies, Menstrual Problems, Endometriosis 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 Sexually Transmitted Disease: No HIV/AIDS: No Genitourinary: Yes (interstitial cystitis) Bladder Infection Gastrointestinal: Yes Gastroesophageal Reflux Musculoskeletal: No Endocrine: No HEENT: Yes (GLASSES/CONTACTS) Loss of Vision: Bilateral Hearing Impairment: Denies Cancer: No Psychosocial: Yes Sleep Difficulties, Anxiety, PTSD, Bipolar, Depression Integumentary: No Blood Disorders: No Adverse Reaction/Blood Tranf: No (N/A) Family Medical History FH: bipolar disorder 19 FATHER 19 MOTHER No Pertinent Family Hx Physical Exam Vital Signs Vital Signs - First Documented 09/07/20 19:10 Temp 36.3 Pulse 86 Resp 19 B/P (MAP) 157/110 (126) O2 Delivery Room Air Capillary Refill : Less Than 3 Seconds Height, Weight, BMI Height: 5'4.00" Weight: 111lbs. 2.0oz. 50.692897or; 21.00 BMI Method:Stated General Appearance: WD/WN, no apparent distress Neck: full range of motion Cardiovascular: regular rate, rhythm Respiratory: lungs clear, normal breath sounds, no respiratory distress, no accessory muscle use Gastrointestinal: normal bowel sounds, soft, tenderness Pelvic: normal external exam (Mild suprapubic tenderness to palpation), other (Moderately tender exam on speculum. A little bit of brownish-red blood noted in the vaginal vault. Patient tolerated the procedure well. No excessive bleeding is noted) Extremities: non-tender, normal inspection, no pedal edema, no calf tenderness 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: alert, normal mood/affect, oriented x 3 Skin: normal color, warm/dry Progress/Results/Core Measures Suspected Sepsis SIRS Temperature: Pulse: 86 Respiratory Rate: 19 Laboratory Tests 09/07/20 19:50: White Blood Count 10.8 Blood Pressure 157 /110 Mean: 126 Laboratory Tests 09/07/20 19:50: Platelet Count 485H Results/Orders Lab Results Laboratory Tests Test 09/07/20 19:50 Range/Units White Blood Count 10.8 4.3-11.0 10^3/uL Red Blood Count 3.57 L 3.80-5.11 10^6/uL Hemoglobin 12.0 11.5-16.0 g/dL Hematocrit 36 35-52 % Mean Corpuscular Volume 102 H 80-99 fL Mean Corpuscular Hemoglobin 34 25-34 pg Mean Corpuscular Hemoglobin Concent 33 32-36 g/dL Red Cell Distribution Width 14.4 10.0-14.5 % Platelet Count 485 H 130-400 10^3/uL Mean Platelet Volume 9.1 9.0-12.2 fL Immature Granulocyte % (Auto) 1 % Neutrophils (%) (Auto) 66 42-75 % Lymphocytes (%) (Auto) 26 12-44 % Monocytes (%) (Auto) 6 0-12 % Eosinophils (%) (Auto) 2 0-10 % Basophils (%) (Auto) 1 0-10 % Neutrophils # (Auto) 7.1 1.8-7.8 10^3/uL Lymphocytes # (Auto) 2.8 1.0-4.0 10^3/uL Monocytes # (Auto) 0.6 0.0-1.0 10^3/uL Eosinophils # (Auto) 0.2 0.0-0.3 10^3/uL Basophils # (Auto) 0.1 0.0-0.1 10^3/uL Immature Granulocyte # (Auto) 0.1 0.0-0.1 10^3/uL My Orders Orders - LYUBOV GALEANA MD Cbc With Automated Diff (09/07/20 19:31) Vital Signs/I&O 09/07/20 19:10 Temp 36.3 Pulse 86 Resp 19 B/P (MAP) 157/110 (126) O2 Delivery Room Air Capillary Refill : Less Than 3 Seconds Blood Pressure Mean: 126 Progress Note : Time: 20:30 Progress Note Patient's hemoglobin is 12. Her vital signs are stable albeit a little bit hypertensive with a blood pressure of 150/100. We will recheck this prior to discharge. We will bring the patient back tomorrow for a pelvic ultrasound to rule out retained products. The patient is not febrile she does not appear sic k/septic. She is not tachycardic. Belly exam is benign. [address] Garcia about the patient's blood pressure of 157/110, 153/100 in the right arm. I changed cuffs and put on the larger cuff and checked it in the left arm it was 135/95. Patient may have a component of some anxiety regarding her vaginal bleeding. Dr. Garcia was comfortable with discharge to home and short-term follow-up with Dr. Gonzalez. We will bring the patient back tomorrow for an ultrasound. She is in no acute distress. She is mentating normally. She does not have any edema in her lower extremities. Pelvic exam was reassuring. Patient will be discharged to home with close follow-up again with Dr. Gonzalez. Departure Impression Primary Impression: bleeding Qualified Codes: O72.1 - Other immediate hemorrhage Additional Impression: High blood pressure Qualified Codes: I10 - Essential (primary) hypertension Disposition: 01 HOME, SELF-CARE Condition: Stable Departure-Patient Inst. Decision time for Depature: 20:46 Referrals: TALA GONZALEZ DO (PCP) Primary Care Physician BEBO HERNANDEZ MD (Family) Primary Care Physician Patient Instructions: Bleeding Add. Discharge Instructions: Please come back to the emergency department in the morning for an ultrasound to further evaluate the bleeding that you are having. I have provided you with the phone number for radiology to call and schedule a time for the ultrasound tomorrow. Please call Dr. Gonzalez's office tomorrow for a follow-up appointment within the next week to check your blood pressure again. Come back to the emergency department if you have severe headache, nausea vomiting, worsening bleeding, swelling in your legs or any other emergent concerning symptoms. Continue to take [id number] ibuprofen and Tylenol as needed for cramping, pain and bleeding. LYUBOV GALEANA MD Sep 07, 2020 19:55
[2020-09-07 20:00] LABS: BASOPHILS # (AUTO) 0.1 10^3/uL (0.0-0.1); BASOPHILS % (AUTO) 1 % (0-10); EOSINOPHILS # (AUTO) 0.2 10^3/uL (0.0-0.3); EOSINOPHILS % (AUTO) 2 % (0-10); HEMATOCRIT 36 % (35-52); LYMPHOCYTES # (AUTO) 2.8 10^3/uL (1.0-4.0); LYMPHOCYTES % (AUTO) 26 % (12-44); MEAN CORPUSCULAR HEMOGLOBIN 34 pg (25-34); MEAN CORPUSCULAR HGB CONC 33 g/dL (32-36); MEAN CORPUSCULAR VOLUME 102 fL (80-99); MEAN PLATELET VOLUME 9.1 fL (9.0-12.2); MONOCYTES # (AUTO) 0.6 10^3/uL (0.0-1.0); MONOCYTES % (AUTO) 6 % (0-12); NEUTROPHILS # (AUTO) 7.1 10^3/uL (1.8-7.8); NEUTROPHILS % (AUTO) 66 % (42-75); PLATELET COUNT 485 10^3/uL (130-400); WHITE BLOOD COUNT 10.8 10^3/uL (4.3-11.0)
== END 2020-09-07 20:55 | disposition home or self-care (01) ==
LOC: EDUNIT# 18:57 → ER 19:00
DX: O72.1 Other immediate postpartum hemorrhage (principal); I10 Essential (primary) hypertension
CPT/HCPCS: 36415; 85025

== ENCOUNTER 2020-10-19 12:25 | Emergency (ER) | payer MEDICARE, MEDICAID ==
[~2020-10-19] VITALS: Ht 162 cm; Wt 56.0 kg
[2020-10-19 12:34] VITALS: BP 124/67
--- NOTE | 2020-10-19 12:50 | ED Abdominal Pain ---
General Chief Complaint: Abdominal/GI Problems Stated Complaint: PELVIC/ABD PAIN Nursing Triage Note: Pt here with pelvic pain; states she was to have outpatient US but has missed the last 2 appointments due to transportation issues. Pt reports she is having lower pelvic pain and is worried about retained placenta. Source of Information: Patient Exam Limitations: No Limitations History of Present Illness Date Seen by Provider: Oct 19, 2020 Time Seen by Provider: 12:35 Initial Comments 30-year-old female with past medical history of chronic cystitis, headaches, and recently roughly 6 weeks from spontaneous vaginal delivery coming in because she is concerned she has a blood clot or potentially placental tissue. She states she has had continued bleeding since her vaginal delivery, and there is concerned that there could be some placental leftover. She is had an ultrasound scheduled which unfortunately she has missed the appointment twice because of inconsistent ability to get a ride here. She states she has an appointment tomorrow and she has a ride assured to her. Her vaginal bleeding stopped 2 days ago and her pain from delivery has been slowly improving. She states roughly an hour prior to arrival she passed a small amount of clear tissue with some blood-tinged to it and she was concerned it could be placenta. She has not been bleeding. She is otherwise denying any significant abdominal pain, dysuria, frequency, nausea, vomiting, fever, vaginal discharge, or any other concerns. She states she has been sexually active. Allergies and Home Medications Allergies Coded Allergies: gabapentin (Verified Allergy, Severe, WEAKNESS, 08/13/18) sumatriptan (Unverified Allergy, Severe, ANAPHYLAXIS, 09/20/13) Penicillins (Unverified Allergy, Mild, HIVES, 08/13/18) sumatriptan succinate (Verified Adverse Reaction, Mild, 04/01/11) Home Medications Butalb/Acetaminophen/Caffeine 1 Each Capsule, 1 EACH PO PRN, (Reported) Ferrous Sulfate 325 Mg Tablet, 325 MG PO DAILY Prescribed by: TALA GONZALEZ on 08/29/20919 Ibuprofen 600 Mg Tablet, 600 MG PO Q6HR Prescribed by: TALA GONZALEZ on 08/29/20919 Vit No.124/Iron/FA 1 Each Tablet, 1 EACH PO DAILY, (Reported) Patient Home Medication List Home Medication List Reviewed: Yes Review of Systems Review of Systems Constitutional: No fever EENTM: No Blurred Vision Respiratory: Denies Cough, Denies Shortness of Air Cardiovascular: Denies Chest Pain Gastrointestinal: Constipated; Denies Diarrhea, Denies Nausea, Denies Vomiting Genitourinary: Denies Burning, Denies Discharge, Denies Frequency, Denies Flank Pain, Denies Hematuria Musculoskeletal: No back pain Skin: No rash Psychiatric/Neurological: Denies Anxiety, Denies Depressed Endocrine: No Symptoms Reported Hematologic/Lymphatic: No Symptoms Reported All Other Systems Reviewed Negative Unless Noted: Yes Past Bjvbkkr-Qhzweg-Ztizbr Hx Patient Social History Tobacco Use?: Yes Immunizations Up To Date Tetanus Booster (TDap): Unknown PED Vaccines UTD: Yes Seasonal Allergies Seasonal Allergies: Yes Past Medical History Surgeries: Yes (SINUS, EXPL LAP, EAR TUBES, perineal tear repair, BLADDER) Abdominal, Appendectomy, Bladder Surgery, Ear Surgery, Eye Surgery Respiratory: Yes (08/10/18) Pneumonia Cardiac: No Neurological: Yes Headaches /Migraines 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 Disorders: No Female 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 Disorders: Denies, Menstrual Problems, Endometriosis 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 Sexually Transmitted Disease: No HIV/AIDS: No Genitourinary: Yes (interstitial cystitis) Bladder Infection Gastrointestinal: Yes Gastroesophageal Reflux Musculoskeletal: No Endocrine: No HEENT: Yes (GLASSES/CONTACTS) Loss of Vision: Bilateral Hearing Impairment: Denies Cancer: No Psychosocial: Yes Sleep Difficulties, Anxiety, PTSD, Bipolar, Depression Integumentary: No Blood Disorders: No Adverse Reaction/Blood Tranf: No (N/A) Family Medical History FH: bipolar disorder 19 FATHER 19 MOTHER No Pertinent Family Hx Physical Exam Vital Signs Vital Signs - First Documented 10/19/20 12:34 Temp 37.0 Pulse 88 Resp 16 B/P (MAP) 124/67 (86) Pulse Ox 99 O2 Delivery Room Air Capillary Refill : Less Than 3 Seconds Height/Weight/BMI Height: 5'4.00" Weight: 111lbs. 2.0oz. 50.305395wh; 21.00 BMI Method:Stated General Appearance: WD/WN, no apparent distress HEENT: PERRL/EOMI, normal ENT inspection, pharynx normal Neck: non-tender, full range of motion, supple, normal inspection Respiratory: chest non-tender, lungs clear, normal breath sounds, no respiratory distress, no accessory muscle use Cardiovascular: no murmur Gastrointestinal: normal bowel sounds, non tender, soft; No guarding, No rebo und Extremities: normal range of motion, non-tender, normal inspection, no pedal edema, no calf tenderness Back: normal inspection 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: no motor/sensory deficits, alert, normal mood/affect Skin: normal color, warm/dry Lymphatic: no adenopathy Progress/Results/Core Measures Results/Orders My Orders Orders - KRISHNA TORRES MD Urine Bedside (10/19/20 12:43) Vital Signs/I&O 10/19/20 12:34 Temp 37.0 Pulse 88 Resp 16 B/P (MAP) 124/67 (86) Pulse Ox 99 O2 Delivery Room Air Blood Pressure Mean: 86 Progress Progress Note : Progress Note 30-year-old female with above history coming in after she passed some type of tissue from her vagina prior to arrival. She showed me a picture of this which to me it looks like clear mucus mixed with a little bit of blood. ABCs were intact and vitals were stable on presentation. Physical exam was reassuring with no significant abdominal tenderness or signs of peritonitis. I discussed with the patient this looks like mucous to me and likely is normal. If she finished bleeding 2 days ago from her vaginal delivery, will likely feel is a small amount of blood left over that would still clear in time. I told her I was reassured by her abdominal exam. If there is no significant bleeding it is unlikely she has any retained products of conception in her uterus. Given that she has an ultrasound ordered for tomorrow, I believe that is still appropriate, and I would not deem it necessary to move that up to today. test ordered given she is sexually active and was negative. Reassessed her abdominal exam which continued to be normal and reassuring. I believe she is stable for discharge with outpatient follow-up. She was sent home with strict return precautions. Departure Impression Primary Impression: bleeding Qualified Codes: O72.1 - Other immediate hemorrhage Disposition: 01 HOME, SELF-CARE Condition: Stable Departure-Patient Inst. Decision time for Depature: 12:49 Referrals: [facility]/ISMAEL (PCP) Primary Care Physician NICOLAS CAMPO (Family) Primary Care Physician Patient Instructions: Bleeding Add. Discharge Instructions: You were seen in the emergency department due to having some unusual discharge. To me this looks more like mucus mixed with blood. There is always the possibility that this was retained placenta. However, the fact that you are not bleeding is very reassuring. Please continue to get your ultrasound tomorrow. If you have any other concerns please come back to the emergency department. All discharge instructions reviewed with patient and/or family. Voiced understanding. KRISHNA TORRES MD Oct 19, 2020 12:50
== END 2020-10-19 12:56 | disposition home or self-care (01) ==
LOC: EDUNIT# 12:25 → ER 12:27
DX: O72.1 Other immediate postpartum hemorrhage (principal)
CPT/HCPCS: 84703; 99282

== ENCOUNTER → 2020-10-20 | Outpatient (CLI) | payer MEDICARE, MEDICAID ==
--- NOTE | 2020-10-20 17:01 | Diagnostic Imaging Report ---
PROCEDURE: US PELVIC (NON OB) TECHNIQUE: Multiple real-time grayscale images were obtained over the pelvis in various projections transabdominally. In addition, limited pelvic Doppler was performed. INDICATION: 7 weeks with vaginal bleeding. Uterus is anteverted measuring 7.9 x 5.8 x 4.5 cm. The endometrium is quite echogenic and measures 12 mm in thickness. There is also vascularity to the endometrium. Features are suggestive of retained products of conception. No myometrial mass is detected. Right ovary measures 3.1 x 2.9 x 2.9 cm and the left ovary measures 2.4 x 2.6 x 1.3 cm. Both ovaries contain follicles. There is blood flow to both ovaries. No free fluid is detected. IMPRESSION: There is heterogeneity, increased echogenicity and vascularity to the endometrium, suggestive of retained products of conception. No other significant abnormality is detected. Dictated by: Dictated on workstation # [id number]
== END ==
LOC: RAD 10:58
PROVIDERS: ATTEND Emergency Medicine
DX: O72.1 Other immediate postpartum hemorrhage (principal)
CPT/HCPCS: 76856

== ENCOUNTER 2020-10-31 05:41 | Outpatient (CLI) | payer MEDICARE, MEDICAID ==
[~2020-10-31] VITALS: Ht 162.6 cm; Wt 52.9 kg
[2020-10-31] MEDS ORDERED: ELAG150T PO (14:06)
[2020-10-31] MEDS ORDERED: VRAYLAR (14:06)
[2020-10-31] MEDS ORDERED: ACET-2267 PO (14:06)
[2020-10-31] MEDS ORDERED: CARI1.5C PO (14:18)
[2020-10-31] MEDS ORDERED: LAMO25TA75 PO (14:18)
== END 2020-10-31 14:22 | disposition home or self-care (01) ==
LOC: PREOP 05:41
PROVIDERS: ATTEND Obstetrics & Gynecology
DX: Z01.818 Encounter for other preprocedural examination (principal)

== ENCOUNTER 2021-12-05 13:47 | Emergency (ER) | payer MEDICARE, MEDICAID ==
[~2021-12-05] VITALS: Ht 162 cm; Wt 68.0 kg
[~2021-12-05 13:47] MED LIST changes: +ACET-2267 PO; +CARI1.5C PO; +CLIN-144 PO; -CLIN300C12 PO; -DULO60CA6 PO; +DULO60CA7 PO; +ELAG150T PO; +LAMO25TA75 PO; +VRAYLAR
[2021-12-05] MEDS ORDERED: diphenhydrAMINE 50 MG/ML INJ (BENADRYL) IVP ONE (15:15)
[2021-12-05] MEDS ORDERED: PROCHLORPERAZINE 10 MG/2ML INJ (COMPAZINE) IV ONE (15:15)
[2021-12-05] MEDS ORDERED: KETOROLAC 30 MG/ML VIAL IVP ONE (15:15)
[2021-12-05] MEDS ORDERED: NS IV 1000 ML 1,000 ML IV ONE (15:15)
--- NOTE | 2021-12-05 15:26 | ED Headache ---
General Chief Complaint: Head/Cervical Problems Stated Complaint: MIGRAINE/NAUSEA Nursing Triage Note: PT PRESENTS TO ED WITH COMPLAINTS OF A MIGRAINE SINCE LAST NIGHT. PT ALSO REPORTS A NAUSEA. PT DENIES AND RECENT FEVER/COUGH. Source: patient Exam Limitations: no limitations History of Present Illness Date Seen by Provider: Dec 05, 2021 Time Seen by Provider: 15:25 Allergies and Home Medications Allergies Coded Allergies: gabapentin (Verified Allergy, Severe, WEAKNESS, 10/31/20) sumatriptan (Unverified Allergy, Severe, ANAPHYLAXIS, 10/31/20) Penicillins (Unverified Allergy, Mild, HIVES, 10/31/20) amitriptyline (Verified Allergy, Unknown, SEDAtion, 10/31/20) sumatriptan succinate (Verified Adverse Reaction, Mild, 10/31/20) Patient Home Medication List Acetaminophen (Tylenol Extra Strength) 500 Mg Tablet, 500 MG PO Q8H, (Reported) Entered as Reported by: ROSALINO HERNANDEZ on 10/31/20 1406 Butalb/Acetaminophen/Caffeine (Esgic Capsule) 1 Each Capsule, 1 EACH PO PRN, (Reported) Entered as Reported by: WILL MEDLEY on 05/03/20 2314 Cariprazine Hydrochloride (Vraylar) 1.5 Mg Capsule, 1.5 MG PO DAILY, (Reported) Entered as Reported by: ROSALINO HERNANDEZ on 10/31/20 1418 Elagolix Sodium (Orilissa) 150 Mg Tablet, 150 MG PO DAILY, (Reported) Entered as Reported by: ROSALINO HERNANDEZ on 10/31/20 1406 Ibuprofen (Ibu) 600 Mg Tablet, 600 MG PO Q6HR Prescribed by: TALA GONZALEZ on 08/29/20 0920 Lamotrigine (Lamictal) 25 Mg Tablet, 25 MG PO DAILY, (Reported) Entered as Reported by: ROSALINO HERNANDEZ on 10/31/20 1418 Past Wrsblep-Guxapp-Qdauxz Hx Patient Social History Tobacco Use?: Yes Tobacco type used: Cigarettes Smoking Status: Current Everyday Smoker E-Cig or Vaping type used: Nicotine Use of E-Cig and/or Vaping Ozzy: Current Someday User Substance use?: No Alcohol Use?: No Pt feels they are or have been: No Immunizations Up To Date Tetanus Booster (TDap): Unknown PED Vaccines UTD: Yes Seasonal Allergies Seasonal Allergies: Yes Past Medical History Surgery/Hospitalization HX: PMH: MIGRAINES Surgeries: Yes (SINUS, EXPL LAP, EAR TUBES, perineal tear repair, BLADDER) Abdominal, Appendectomy, Bladder Surgery, Ear Surgery, Eye Surgery Respiratory: Yes (08/10/18) Asthma, Pneumonia Cardiac: No Neurological: Yes Headaches /Migraines 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 Disorders: No Female 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 Disorders: Denies, Menstrual Problems, Endometriosis PATHOLOGY TECH History: IUD Sexually Transmitted Disease: No HIV/AIDS: No Genitourinary: Yes (interstitial cystitis) Bladder Infection, UTI-Chronic Gastrointestinal: Yes Gastroesophageal Reflux Musculoskeletal: No Endocrine: No HEENT: Yes (GLASSES/CONTACTS) Chronic Ear Infection Loss of Vision: Bilateral Hearing Impairment: Denies Cancer: No Psychosocial: Yes Sleep Difficulties, Anxiety, PTSD, Bipolar, Depression Integumentary: No Blood Disorders: No Adverse Reaction/Blood Tranf: No (N/A) Family Medical History FH: bipolar disorder 19 FATHER 19 MOTHER No Pertinent Family Hx Physical Exam Vital Signs Vital Signs - First Documented 12/05/21 13:56 Temp 36.5 Pulse 85 Resp 18 B/P (MAP) 123/85 (98) Pulse Ox 100 Capillary Refill : Less Than 3 Seconds Height, Weight, BMI Height: 5'4.00" Weight: 111lbs. 2.0oz. 50.368307hg; 25.00 BMI Method:Stated Progress/Results/Core Measures Results/Orders My Orders Orders - RICKEY JHA APRN Ed Iv/Invasive Line Start (12/05/21 15:15) Ketorolac Injection (Toradol Injection) (12/05/21 15:15) Prochlorperazine Injection (Compazine In (12/05/21 15:15) Diphenhydramine Injection (Benadryl Inje (12/05/21 15:15) Ns Iv 1000 Ml (Sodium Chloride 0.9%) (12/05/21 15:15) Medications Given in ED Current Medications Medications Dose Ordered Sig/Janine Route Start Time Stop Time Status Last Admin Dose Admin Diphenhydramine HCl 25 mg ONCE ONCE IVP 12/05/21 15:15 12/05/21 15:18 DC 12/05/21 15:42 25 MG Ketorolac Tromethamine 30 mg ONCE ONCE IVP 12/05/21 15:15 12/05/21 15:18 DC 12/05/21 15:41 30 MG Prochlorperazine Edisylate 10 mg ONCE ONCE IV 12/05/21 15:15 12/05/21 15:18 DC 12/05/21 15:41 10 MG Sodium Chloride 1,000 ml @ 999 mls/hr ONCE ONCE IV 12/05/21 15:15 12/05/21 16:15 12/05/21 15:42 999 MLS/HR Vital Signs/I&O 12/05/21 13:56 Temp 36.5 Pulse 85 Resp 18 B/P (MAP) 123/85 (98) Pulse Ox 100 Blood Pressure Mean: 98 Departure Impression Primary Impression: Migraine Disposition: 01 HOME, SELF-CARE Condition: Improved Departure-Patient Inst. Decision time for Depature: 15:58 Referrals: [facility] (PCP/Family) Primary Care Physician Patient Instructions: Home Headache Remedies, Migraines in Adults Add. Discharge Instructions: Plan: 1. Rest. Drink plenty of fluids. 2. Follow up with your doctor for persistent symptoms. 3. Return for any new, concerning, or worsening symptoms. All discharge instructions reviewed with patient and/or family. Voiced understanding. RICKEY JHA DIGITAL PROJECT COORDINATOR Dec 05, 2021 15:26
[2021-12-05 16:38] VITALS: BP 123/85
== END 2021-12-05 16:38 | disposition home or self-care (01) ==
LOC: EDUNIT# 13:47 → ER 13:49
DX: G43.909 Migraine, unspecified, not intractable, without status migrainosus (principal); F17.210 Nicotine dependence, cigarettes, uncomplicated; Z28.310 Unvaccinated for COVID-19